=== PATIENT | female | born 1945 | race Caucasian/White ===

== ENCOUNTER → 2018-03-06 08:37 | Outpatient (REF) | payer MEDICARE, SELFPAY ==
[2018-03-06 13:24] LABS: HCT 40.8 % (36.0-46.0); HGB 13.8 g/dL (12.0-15.5); Mean Corp. HGB Concentration 33.8 g/dL (32.0-36.0); Mean Corpuscular Hemoglobin 30.6 pg (27.0-33.0); Mean Corpuscular Volume 90.5 fL (80-95); Mean Platelet Volume 13.2 fL (8.0-11.0); RBC 4.51 m/cumm (4.00-5.20); White Blood Cell Count 4.04 k/cumm (4.4-10.8)
[2018-03-06 13:49] LABS: BUN 17 mg/dL (7-18); CREATININE 0.79 mg/dL (0.55-1.02); Calcium 8.9 mg/dL (8.5-10.1); Chloride 104 mmol/L (98-107); Glucose 86 mg/dL (70-100); Potassium 3.8 mmol/L (3.5-5.1); Sodium 141 mmol/L (136-145)
[2018-03-06 14:11] LABS: Platelet Count 51 x1000/uL (130-400)
== END ==
LOC: NCHCN 08:37
PROVIDERS: PCP Family Medicine; Visit Provider Family Medicine
DX: I10 Essential (primary) hypertension (principal); D69.3 Immune thrombocytopenic purpura
CPT/HCPCS: 80048; 85027

== ENCOUNTER 2018-05-29 08:40 | Outpatient (REF) | payer MEDICARE, SELFPAY ==
[2018-05-29 13:01] LABS: Abs Immature Grans 0.01 k/cumm (0.0-0.09); Absolute Basophil Count 0.08 k/cumm (0.0-0.2); Absolute Eosinophil Count 0.06 k/cumm (0.0-0.7); Absolute Lymphocyte Count 1.08 k/cumm (1.2-3.4); Absolute Monocyte Count 0.42 k/cumm (0.11-0.7); Absolute Neutrophil Count 2.32 k/cumm (1.2-6.7); Eosinophils % 1.5; Immature Grans % 0.3; Lymphocytes % 27.2; Mean Corp. HGB Concentration 33.3 g/dL (32.0-36.0); Mean Corpuscular Hemoglobin 30.1 pg (27.0-33.0); Mean Corpuscular Volume 90.3 fL (80-95); Mean Platelet Volume 12.6 fL (8.0-11.0); Monocytes % 10.6; Neutrophils % 58.4; RBC 4.65 m/cumm (4.00-5.20); RBC Distribution Width 13.1 % (11.7-14.6); White Blood Cell Count 3.97 k/cumm (4.4-10.8)
[2018-05-29 13:25] LABS: Diff Comment PLT Morph Reviewed; Platelet Count 74 x1000/uL (130-400); RBC Morphology Normal
[2018-05-29 13:32] LABS: Vitamin B12 645 pg/mL (193-986)
== END 2018-05-29 09:00 ==
LOC: NCHCN 08:40
PROVIDERS: PCP Family Medicine; Visit Provider Family Medicine
DX: D69.3 Immune thrombocytopenic purpura (principal); D70.9 Neutropenia, unspecified
CPT/HCPCS: 82607; 85025

== ENCOUNTER 2018-06-12 09:16 | Outpatient (CLI) | payer MEDICARE, SELFPAY ==
--- NOTE | 2018-06-12 09:07 | DI.RAD_ITS ---
SYMPTOM/DIAGNOSIS: PAIN OF LEFT LOWER EXTREMITY LEFT HIP: Two views. The left hip is well maintained. No acute fracture or dislocation seen. There does appear to be a generalized increased sclerosis in the bones of the pelvis raising the question of osseous metastatic disease. Bone scan should be considered in this patient for further evaluation. The sacroiliac joints show mild degenerative changes. The symphysis pubis is intact. The soft tissues are unremarkable. IMPRESSION: 1. No acute fracture or dislocation. 2. Mild degenerative changes in the pelvis as described. 3. Generalized appearance of increased sclerosis of the bones raising the question of osseous metastatic disease. Bone scan should be considered in this patient for further evaluation, if clinically appropriate.
--- NOTE | 2018-06-12 09:07 | DI.RAD_ITS ---
SYMPTOM/DIAGNOSIS: KNEE PAIN LEFT KNEE: Three views. No priors for comparison. There is mild narrowing and periarticular spurring involving the medial femoral tibial joint. There is also mild spurring of the posterior patella. The joint spaces are otherwise well maintained. There is a small suprapatellar joint effusion. No acute fracture or dislocation is seen. Vascular calcifications are present in the soft tissues. IMPRESSION: Mild to moderate degenerative changes of the left knee.
--- NOTE | 2018-06-12 09:08 | DI.RAD_ITS ---
SYMPTOM/DIAGNOSIS: PAIN LEFT LOWER EXTREMITY LUMBAR SPINE: AP lateral and bilateral oblique views. There are five lumbar type vertebral bodies. There is normal alignment with Grade 1 pseudospondylolisthesis of L4 and L5 but no spondylolysis is present. No acute fractures or subluxations are present. There are vacuum discs at L1, L2 and L5-S1. End plate osteophytes are seen throughout the lumbar spine with disc space narrowing at L1, L2 and L5-S1. Degenerative changes of the facets are present throughout. There does appear to be a generalized increased sclerotic appearance to the bones. IMPRESSION: 1. Moderate degenerative changes of the lumbar spine. 2. No acute fractures or subluxations. 3. Overall generalized increased sclerosis of the bones. Metastatic disease should be considered. Bone scan should be considered for further evaluation.
== END 2018-06-12 09:36 ==
PROVIDERS: PCP Family Medicine; Referring Provider Family Medicine; Visit Provider Student in an Organized Health Care Education/Training Program
DX: M25.462 Effusion, left knee (principal); M25.562 Pain in left knee; M17.12 Unilateral primary osteoarthritis, left knee; M79.605 Pain in left leg; M25.552 Pain in left hip; M89.8X8 Other specified disorders of bone, other site; M51.37 Other intervertebral disc degeneration, lumbosacral region
CPT/HCPCS: 73562; 99203; 99214; 72110; 73502

== ENCOUNTER 2018-06-15 01:13 | Outpatient (CLI) | payer MEDICARE, SELFPAY ==
--- NOTE | 2018-06-15 10:33 | DI.MRI_ITS ---
SYMPTOM/DIAGNOSIS: PAIN OF LT LOWER EXTREMITY. ? SPINAL STENOSIS M79.605 LUMBOSACRAL SPINE MRI: 06/15/18 MRI examination of the lumbosacral spine was performed according to the usual protocol. Recent radiographs showed diffuse sclerotic appearance of the bones, no significant signal abnormality of the bones identified on today's examination to suggest the presence of bony metastatic disease. A few Schmorl's nodes are noted associated predominantly with L1-2 and L2-3 intervertebral discs. There is signal loss in the intervertebral discs throughout the lower thoracic and lumbar spine consistent with disc degeneration. There is loss of height at multiple levels. Conus medullaris appears intact. No significant disc herniation, central canal spinal stenosis or neuroforaminal stenosis identified in the lower thoracic and upper lumbar region. No specific findings at L3-4. At L4-5 there is severe central canal spinal stenosis secondary to prominent facet hypertrophic changes and a mild anteropseudo spondylolisthesis. No focal disc herniation. Neural foramina appear fairly well maintained. At L5-S1 there was a small central disc herniation without evidence of neural impingement. No central canal spinal stenosis or neuroforaminal stenosis identified at L5-S1. CONCLUSION: Severe central canal spinal stenosis at L4-5. The findings appear secondary to the facet hypertrophic changes and pseudospondylolisthesis. Small central disc herniation also noted at L5-S1 without evidence of neural impingement.
== END 2018-06-15 01:33 ==
PROVIDERS: PCP Family Medicine; Visit Provider Student in an Organized Health Care Education/Training Program
DX: M79.662 Pain in left lower leg (principal); M48.061 Spinal stenosis, lumbar region without neurogenic claudication; M51.36 Other intervertebral disc degeneration, lumbar region; M51.27 Other intervertebral disc displacement, lumbosacral region
CPT/HCPCS: 72148

== ENCOUNTER → 2018-08-02 11:14 | Outpatient (BNVA) | payer MEDICARE, SELFPAY | PROVIDERS: PCP Family Medicine; Referring Provider Family Medicine; Visit Provider Student in an Organized Health Care Education/Training Program | DX: M17.12 Unilateral primary osteoarthritis, left knee (principal); M48.061 Spinal stenosis, lumbar region without neurogenic claudication | CPT/HCPCS: 99213 ==

== ENCOUNTER 2018-09-04 08:24 | Outpatient (CLI) | payer MEDICARE, SELFPAY ==
[2018-09-04 08:57] LABS: Abs Immature Grans 0.01 k/cumm (0.0-0.09); Absolute Eosinophil Count 0.11 k/cumm (0.0-0.7); Absolute Monocyte Count 0.44 k/cumm (0.11-0.7); Basophils % 2.3; Eosinophils % 2.6; HCT 43.6 % (36.0-46.0); HGB 14.5 g/dL (12.0-15.5); Immature Grans % 0.2; Lymphocytes % 30.5; Mean Corp. HGB Concentration 33.3 g/dL (32.0-36.0); Mean Corpuscular Hemoglobin 29.8 pg (27.0-33.0); Mean Corpuscular Volume 89.7 fL (80-95); Mean Platelet Volume 11.3 fL (8.0-11.0); Monocytes % 10.3; Neutrophils % 54.1; RBC 4.86 m/cumm (4.00-5.20); RBC Distribution Width 12.5 % (11.7-14.6); White Blood Cell Count 4.26 k/cumm (4.4-10.8)
[2018-09-04 09:10] LABS: ALT 21 U/L (12-78); AST 15 U/L (15-37); Albumin 3.7 g/dL (3.4-5.0); Alkaline Phosphatase 68 U/L (46-116); BUN 19 mg/dL (7-18); Bilirubin, Total 0.4 mg/dL (0.2-1.0); CO2 31.8 mmol/L (21.0-32.0); CREATININE 0.87 mg/dL (0.55-1.02); Calcium 9.8 mg/dL (8.5-10.1); Glucose 99 mg/dL (70-100); Total Protein 7.3 g/dL (6.4-8.2)
[2018-09-04 09:12] LABS: Platelet Count 103 x1000/uL (130-400)
[2018-09-04 09:13] LABS: Diff Comment PLT Morph Reviewed; RBC Morphology Normal
[2018-09-04 09:16] LABS: Anion Gap 6.2 mmol/L (3-11); Chloride 105 mmol/L (98-107); Potassium 4.3 mmol/L (3.5-5.1); Sodium 143 mmol/L (136-145)
== END 2018-09-04 08:44 ==
PROVIDERS: PCP Family Medicine; Visit Provider Internal Medicine Hematology & Oncology
DX: D69.0 Allergic purpura (principal)
CPT/HCPCS: 36415; 80053; 85025

== ENCOUNTER 2018-12-05 15:31 | Outpatient (CLI) | payer MEDICARE, SELFPAY ==
[2018-12-05 16:05] LABS: Abs Immature Grans 0.01 k/cumm (0.0-0.09); Absolute Basophil Count 0.06 k/cumm (0.0-0.2); Absolute Eosinophil Count 0.15 k/cumm (0.0-0.7); Absolute Lymphocyte Count 1.63 k/cumm (1.2-3.4); Absolute Monocyte Count 0.61 k/cumm (0.11-0.7); Absolute Neutrophil Count 4.88 k/cumm (1.2-6.7); Basophils % 0.8; HCT 42.5 % (36.0-46.0); HGB 14.4 g/dL (12.0-15.5); Immature Grans % 0.1; Lymphocytes % 22.2; Mean Corp. HGB Concentration 33.9 g/dL (32.0-36.0); Mean Corpuscular Hemoglobin 30.9 pg (27.0-33.0); Mean Corpuscular Volume 91.2 fL (80-95); Mean Platelet Volume 11.9 fL (8.0-11.0); Monocytes % 8.3; Neutrophils % 66.6; RBC 4.66 m/cumm (4.00-5.20); RBC Distribution Width 12.7 % (11.7-14.6); White Blood Cell Count 7.34 k/cumm (4.4-10.8)
[2018-12-05 16:24] LABS: Platelet Count 98 x1000/uL (130-400)
== END 2018-12-05 15:51 ==
PROVIDERS: PCP Family Medicine; Visit Provider Internal Medicine Hematology & Oncology
DX: D69.6 Thrombocytopenia, unspecified (principal)
CPT/HCPCS: 36415; 85025

== ENCOUNTER 2019-03-08 11:30 | Outpatient (CLI) | payer MEDICARE, SELFPAY ==
[2019-03-08 12:04] LABS: Abs Immature Grans 0.01 k/cumm (0.0-0.09); Absolute Basophil Count 0.07 k/cumm (0.0-0.2); Absolute Eosinophil Count 0.12 k/cumm (0.0-0.7); Absolute Monocyte Count 0.47 k/cumm (0.11-0.7); Basophils % 1.3; Eosinophils % 2.3; HCT 41.4 % (36.0-46.0); HGB 14.1 g/dL (12.0-15.5); Immature Grans % 0.2; Lymphocytes % 28.5; Mean Corp. HGB Concentration 34.1 g/dL (32.0-36.0); Mean Corpuscular Hemoglobin 30.8 pg (27.0-33.0); Mean Corpuscular Volume 90.4 fL (80-95); Monocytes % 8.9; Neutrophils % 58.8; RBC 4.58 m/cumm (4.00-5.20); RBC Distribution Width 12.7 % (11.7-14.6); White Blood Cell Count 5.27 k/cumm (4.4-10.8)
[2019-03-08 12:56] LABS: Platelet Count 97 x1000/uL (130-400)
[2019-03-08 12:57] LABS: Diff Comment Diff Reviewed; RBC Morphology Normal
== END 2019-03-08 11:50 ==
PROVIDERS: PCP Family Medicine; Visit Provider Internal Medicine Hematology & Oncology
DX: D69.6 Thrombocytopenia, unspecified (principal)
CPT/HCPCS: 36415; 80053; 85025

== ENCOUNTER 2019-05-08 14:50 | Outpatient (CLI) | payer MEDICARE, SELFPAY ==
[2019-05-08 15:36] LABS: Abs Immature Grans 0.02 k/cumm (0.0-0.09); Absolute Basophil Count 0.08 k/cumm (0.0-0.2); Absolute Eosinophil Count 0.14 k/cumm (0.0-0.7); Absolute Lymphocyte Count 2.02 k/cumm (1.2-3.4); Absolute Monocyte Count 0.53 k/cumm (0.11-0.7); Absolute Neutrophil Count 5.48 k/cumm (1.2-6.7); Eosinophils % 1.7; HGB 14.5 g/dL (12.0-15.5); Immature Grans % 0.2; Lymphocytes % 24.4; Mean Corp. HGB Concentration 33.7 g/dL (32.0-36.0); Mean Corpuscular Hemoglobin 30.6 pg (27.0-33.0); Mean Corpuscular Volume 90.7 fL (80-95); Mean Platelet Volume 11.6 fL (8.0-11.0); Monocytes % 6.4; Neutrophils % 66.3; Platelet Count 127 x1000/uL (130-400); RBC 4.74 m/cumm (4.00-5.20); RBC Distribution Width 12.8 % (11.7-14.6); White Blood Cell Count 8.27 k/cumm (4.4-10.8)
== END 2019-05-08 15:10 ==
PROVIDERS: PCP Family Medicine; Visit Provider Internal Medicine Hematology & Oncology
DX: D69.6 Thrombocytopenia, unspecified (principal)
CPT/HCPCS: 36415; 85025

== ENCOUNTER 2019-05-28 09:08 | Outpatient (CLI) | payer MEDICARE, SELFPAY ==
[2019-05-28 09:56] LABS: Abs Immature Grans 0.01 k/cumm (0.0-0.09); Absolute Basophil Count 0.07 k/cumm (0.0-0.2); Absolute Eosinophil Count 0.14 k/cumm (0.0-0.7); Absolute Lymphocyte Count 1.38 k/cumm (1.2-3.4); Absolute Monocyte Count 0.46 k/cumm (0.11-0.7); Absolute Neutrophil Count 2.45 k/cumm (1.2-6.7); Basophils % 1.6; Eosinophils % 3.1; HCT 43.5 % (36.0-46.0); HGB 14.6 g/dL (12.0-15.5); Immature Grans % 0.2; Lymphocytes % 30.6; Mean Corp. HGB Concentration 33.6 g/dL (32.0-36.0); Mean Corpuscular Hemoglobin 30.7 pg (27.0-33.0); Mean Corpuscular Volume 91.6 fL (80-95); Mean Platelet Volume 11.2 fL (8.0-11.0); Monocytes % 10.2; Neutrophils % 54.3; Platelet Count 124 x1000/uL (130-400); RBC 4.75 m/cumm (4.00-5.20); RBC Distribution Width 12.8 % (11.7-14.6); White Blood Cell Count 4.51 k/cumm (4.4-10.8)
[2019-05-28 10:19] LABS: ALT 28 U/L (14-59); AST 15 U/L (15-37); Albumin 3.9 g/dL (3.4-5.0); Alkaline Phosphatase 66 U/L (46-116); Anion Gap 5.2 mmol/L (3-11); BUN 20 mg/dL (7-18); Bilirubin, Total 0.5 mg/dL (0.2-1.0); CO2 29.8 mmol/L (21.0-32.0); CREATININE 0.88 mg/dL (0.55-1.02); Calcium 9.6 mg/dL (8.5-10.1); Chloride 107 mmol/L (98-107); Glucose 95 mg/dL (70-100); Potassium 4.5 mmol/L (3.5-5.1); Sodium 142 mmol/L (136-145); Total Protein 7.2 g/dL (6.4-8.2)
== END 2019-05-28 09:28 ==
PROVIDERS: PCP Family Medicine; Visit Provider Internal Medicine Hematology & Oncology
DX: D69.6 Thrombocytopenia, unspecified (principal)
CPT/HCPCS: 36415; 80053; 85025

== ENCOUNTER 2019-12-13 01:48 | Outpatient (CLI) | payer MEDICARE, SELFPAY ==
[2019-12-13 09:09] LABS: Abs Immature Grans 0.01 k/cumm (0.0-0.09); Absolute Basophil Count 0.07 k/cumm (0.0-0.2); Absolute Eosinophil Count 0.23 k/cumm (0.0-0.7); Absolute Lymphocyte Count 1.33 k/cumm (1.2-3.4); Absolute Monocyte Count 0.52 k/cumm (0.11-0.7); Absolute Neutrophil Count 2.49 k/cumm (1.2-6.7); Basophils % 1.5; Eosinophils % 4.9; HCT 43.5 % (36.0-46.0); HGB 14.5 g/dL (12.0-15.5); Immature Grans % 0.2 %; Lymphocytes % 28.6; Mean Corp. HGB Concentration 33.3 g/dL (32.0-36.0); Mean Corpuscular Hemoglobin 30.3 pg (27.0-33.0); Mean Platelet Volume 11.3 fL (8.0-11.0); Monocytes % 11.2; Neutrophils % 53.6; Platelet Count 122 x1000/uL (130-400); RBC 4.78 m/cumm (4.00-5.20); RBC Distribution Width 12.7 % (11.7-14.6); White Blood Cell Count 4.65 k/cumm (4.4-10.8)
[2019-12-13 09:18] LABS: ALT 27 U/L (14-59); AST 18 U/L (15-37); Albumin 4.1 g/dL (3.4-5.0); Alkaline Phosphatase 63 U/L (46-116); Anion Gap 4.2 mmol/L (3-11); BUN 20 mg/dL (7-18); Bilirubin, Total 0.7 mg/dL (0.2-1.0); CO2 30.8 mmol/L (21.0-32.0); CREATININE 0.98 mg/dL (0.55-1.02); Calcium 10.2 mg/dL (8.5-10.1); Chloride 105 mmol/L (98-107); Estimated GFR 55.18 (mL/min/1.73m2); Glucose 96 mg/dL (74-106); Potassium 4.3 mmol/L (3.5-5.1); Sodium 140 mmol/L (136-145); Total Protein 7.5 g/dL (6.4-8.2)
== END 2019-12-13 02:08 ==
PROVIDERS: PCP Family Medicine; Visit Provider Internal Medicine Hematology & Oncology
DX: D69.6 Thrombocytopenia, unspecified (principal)
CPT/HCPCS: 36415; 80053; 85025

== ENCOUNTER 2020-05-26 11:20 | Outpatient (REF) | payer SELFPAY ==
[2020-05-27 21:14] LABS: COVID-19 RT-PCR Result NEGATIVE (Negative)
== END 2020-05-26 11:40 ==
LOC: NCHCN 11:20
PROVIDERS: PCP Family Medicine; Visit Provider Nurse Practitioner Family
DX: Z20.828 Contact with and (suspected) exposure to other viral communicable diseases (principal)
CPT/HCPCS: U0003

== ENCOUNTER 2020-07-11 04:59 | Outpatient (CLI) | payer MEDICARE, SELFPAY ==
[2020-07-11 15:18] LABS: Abs Immature Grans 0.02 10^3/uL (0.0-0.06); Absolute Eosinophil Count 0.13 10^3/uL (0.0-0.7); Absolute Lymphocyte Count 1.81 10^3/uL (1.2-3.4); Absolute Monocyte Count 0.71 10^3/uL (0.1-0.8); Absolute Neutrophil Count 4.68 10^3/uL (1.2-6.7); Basophils % 1.3; Eosinophils % 1.7; HCT 42.7 % (36.0-46.0); HGB 13.9 g/dL (11.2-15.7); Immature Grans % 0.3; Lymphocytes % 24.3; MCH 30.1 pg (27.0-33.0); MCHC 32.6 % (32.0-36.0); MCV 92.4 fL (80-95); Monocytes % 9.5; Neutrophils % 62.9; Nucleated RBC 0 %; RBC 4.62 10^6/uL (3.93-5.22); RDW-SD 40.7 fL; WBC 7.45 10^3/uL (4.4-10.8)
[2020-07-14 11:35] LABS: Platelet Count 16 10^3/uL (130-400)
== END 2020-07-11 05:19 ==
PROVIDERS: PCP Family Medicine; Visit Provider Internal Medicine Hematology & Oncology
DX: D69.6 Thrombocytopenia, unspecified (principal)
CPT/HCPCS: 36415; 85025

== ENCOUNTER 2020-07-16 16:53 | Outpatient (CLI) | payer MEDICARE, SELFPAY ==
[2020-07-16 10:14] LABS: Abs Immature Grans 0.01 10^3/uL (0.0-0.06); Absolute Basophil Count 0.12 10^3/uL (0.0-0.2); Absolute Eosinophil Count 0.18 10^3/uL (0.0-0.7); Absolute Lymphocyte Count 1.33 10^3/uL (1.2-3.4); Absolute Monocyte Count 0.51 10^3/uL (0.1-0.8); Absolute Neutrophil Count 3.57 10^3/uL (1.2-6.7); Basophils % 2.1; Eosinophils % 3.1; HCT 44.8 % (36.0-46.0); HGB 14.6 g/dL (11.2-15.7); Immature Grans % 0.2; Lymphocytes % 23.3; MCH 30.3 pg (27.0-33.0); MCHC 32.6 % (32.0-36.0); MCV 92.9 fL (80-95); Monocytes % 8.9; Neutrophils % 62.4; Nucleated RBC 0 %; RBC 4.82 10^6/uL (3.93-5.22); RDW-SD 41.5 fL; WBC 5.72 10^3/uL (4.4-10.8)
[2020-07-16 10:28] LABS: ALT 25 U/L (14-59); AST 16 U/L (15-37); Alkaline Phosphatase 72 U/L (46-116); Anion Gap 6.6 mmol/L (3-11); BUN 19 mg/dL (7-18); Bilirubin, Total 0.6 mg/dL (0.2-1.0); CO2 29.4 mmol/L (21.0-32.0); CREATININE 0.97 mg/dL (0.55-1.02); Chloride 105 mmol/L (98-107); Estimated GFR 55.83 (mL/min/1.73m2); Glucose 69 mg/dL (74-106); Potassium 3.9 mmol/L (3.5-5.1); Sodium 141 mmol/L (136-145); Total Protein 7.6 g/dL (6.4-8.2)
[2020-07-16 10:43] LABS: Diff Comment Diff Reviewed; RBC Morphology Normal
[2020-07-16 10:47] LABS: Platelet Count 15 10^3/uL (130-400)
== END 2020-07-16 17:13 ==
PROVIDERS: PCP Family Medicine; Visit Provider Internal Medicine Hematology & Oncology
DX: D69.6 Thrombocytopenia, unspecified (principal)
CPT/HCPCS: 36415; 80053; 85025

== ENCOUNTER 2020-07-17 11:33 | Outpatient (CLI) | payer MEDICARE, SELFPAY ==
[2020-07-17 15:14] LABS: Abs Immature Grans 0.06 10^3/uL (0.0-0.06); Absolute Basophil Count 0.02 10^3/uL (0.0-0.2); Absolute Lymphocyte Count 0.89 10^3/uL (1.2-3.4); Basophils % 0.1; HGB 14.6 g/dL (11.2-15.7); Immature Grans % 0.3; Lymphocytes % 4.8; MCH 30.7 pg (27.0-33.0); MCV 90.3 fL (80-95); Monocytes % 1.7; Neutrophils % 93.1; Nucleated RBC 0 %; RBC 4.76 10^6/uL (3.93-5.22); RDW-SD 39.5 fL; WBC 18.58 10^3/uL (4.4-10.8)
[2020-07-17 15:17] LABS: Absolute Monocyte Count 0.32 10^3/uL (0.1-0.8)
[2020-07-17 15:40] LABS: Diff Comment Diff Reviewed; Platelet Count 50 10^3/uL (130-400); RBC Morphology Normal
[2020-07-17 16:27] LABS: ALT 27 U/L (14-59); AST 15 U/L (15-37); Albumin 4.2 g/dL (3.4-5.0); Alkaline Phosphatase 75 U/L (46-116); Anion Gap 12.4 mmol/L (3-11); BUN 25 mg/dL (7-18); Bilirubin, Total 0.4 mg/dL (0.2-1.0); CO2 24.6 mmol/L (21.0-32.0); CREATININE 0.93 mg/dL (0.55-1.02); Chloride 104 mmol/L (98-107); Estimated GFR 58.61 (mL/min/1.73m2); Glucose 145 mg/dL (74-106); Sodium 141 mmol/L (136-145); Total Protein 7.4 g/dL (6.4-8.2)
== END 2020-07-17 11:53 ==
PROVIDERS: PCP Family Medicine; Visit Provider Internal Medicine Hematology & Oncology
DX: D69.6 Thrombocytopenia, unspecified (principal)
CPT/HCPCS: 36415; 80053; 85025

== ENCOUNTER 2020-07-21 02:13 | Outpatient (CLI) | payer MEDICARE, SELFPAY ==
[2020-07-21 12:12] LABS: Abs Immature Grans 0.12 10^3/uL (0.0-0.06); Absolute Basophil Count 0.01 10^3/uL (0.0-0.2); Absolute Lymphocyte Count 2.15 10^3/uL (1.2-3.4); Absolute Monocyte Count 1.31 10^3/uL (0.1-0.8); Absolute Neutrophil Count 5.82 10^3/uL (1.2-6.7); Basophils % 0.1; HCT 44.3 % (36.0-46.0); HGB 14.8 g/dL (11.2-15.7); Immature Grans % 1.3; Lymphocytes % 22.8; MCH 30.2 pg (27.0-33.0); MCHC 33.4 % (32.0-36.0); MCV 90.4 fL (80-95); Monocytes % 13.9; Neutrophils % 61.9; Nucleated RBC 0 %; Platelet Count 163 10^3/uL (130-400); RDW 12.1 % (11.7-14.6); WBC 9.41 10^3/uL (4.4-10.8)
== END 2020-07-21 02:33 ==
PROVIDERS: PCP Family Medicine; Visit Provider Internal Medicine Hematology & Oncology
DX: D69.6 Thrombocytopenia, unspecified (principal)
CPT/HCPCS: 36415; 85025

== ENCOUNTER 2020-07-28 03:08 | Outpatient (CLI) | payer MEDICARE, SELFPAY ==
[2020-07-28 09:09] LABS: Abs Immature Grans 0.04 10^3/uL (0.0-0.06); Absolute Basophil Count 0.03 10^3/uL (0.0-0.2); Absolute Eosinophil Count 0.15 10^3/uL (0.0-0.7); Absolute Lymphocyte Count 1.52 10^3/uL (1.2-3.4); Absolute Monocyte Count 0.59 10^3/uL (0.1-0.8); Absolute Neutrophil Count 4.24 10^3/uL (1.2-6.7); Basophils % 0.5; Eosinophils % 2.3; Immature Grans % 0.6; Lymphocytes % 23.1; MCH 30.4 pg (27.0-33.0); MCHC 32.6 % (32.0-36.0); MCV 93.5 fL (80-95); MPV 11.3 fL (8.0-11.0); Neutrophils % 64.5; Nucleated RBC 0 %; Platelet Count 141 10^3/uL (130-400); RDW 12.2 % (11.7-14.6); RDW-SD 41.6 fL; WBC 6.57 10^3/uL (4.4-10.8)
[2020-07-28 09:29] LABS: ALT 33 U/L (14-59); AST 15 U/L (15-37); Albumin 3.5 g/dL (3.4-5.0); Alkaline Phosphatase 67 U/L (46-116); Anion Gap 6.7 mmol/L (3-11); BUN 17 mg/dL (7-18); Bilirubin, Total 0.5 mg/dL (0.2-1.0); CO2 28.3 mmol/L (21.0-32.0); CREATININE 0.96 mg/dL (0.55-1.02); Calcium 9.4 mg/dL (8.5-10.1); Chloride 105 mmol/L (98-107); Estimated GFR 56.36 (mL/min/1.73m2); Glucose 103 mg/dL (74-106); Potassium 3.8 mmol/L (3.5-5.1); Sodium 140 mmol/L (136-145)
[2020-07-29 09:43] LABS: HBs Antibody, Quant <3.1 mIU/mL (See Note); Hepatitis B Surface Ab Negative (See Note)
[2020-07-29 09:50] LABS: Hepatitis B Surface Ag Negative (Negative)
[2020-07-29 10:33] LABS: Hepatitis C Ab w Rflx HCV PCR Negative (Negative)
== END 2020-07-28 03:28 ==
PROVIDERS: PCP Family Medicine; Visit Provider Internal Medicine Hematology & Oncology
DX: D69.6 Thrombocytopenia, unspecified (principal); Z11.59 Encounter for screening for other viral diseases
CPT/HCPCS: 36415; 80053; 86706; 86803; 87340; 85025; 86704

== ENCOUNTER 2020-08-04 03:51 | Outpatient (CLI) | payer MEDICARE, SELFPAY ==
[2020-08-04 09:12] LABS: Abs Immature Grans 0.02 10^3/uL (0.0-0.06); Absolute Basophil Count 0.09 10^3/uL (0.0-0.2); Absolute Eosinophil Count 0.16 10^3/uL (0.0-0.7); Absolute Lymphocyte Count 1.39 10^3/uL (1.2-3.4); Absolute Monocyte Count 0.49 10^3/uL (0.1-0.8); Absolute Neutrophil Count 3.39 10^3/uL (1.2-6.7); Basophils % 1.6; Eosinophils % 2.9; HCT 43.8 % (36.0-46.0); HGB 14.2 g/dL (11.2-15.7); Immature Grans % 0.4; Lymphocytes % 25.1; MCH 30.1 pg (27.0-33.0); MCHC 32.4 % (32.0-36.0); MPV 12.8 fL (8.0-11.0); Monocytes % 8.8; Neutrophils % 61.2; Nucleated RBC 0 %; RBC 4.71 10^6/uL (3.93-5.22); RDW 12.1 % (11.7-14.6); RDW-SD 41.3 fL; WBC 5.54 10^3/uL (4.4-10.8)
[2020-08-04 09:39] LABS: Platelet Count 41 10^3/uL (130-400)
[2020-08-04 09:40] LABS: Diff Comment Diff Reviewed; RBC Morphology Normal
== END 2020-08-04 04:11 ==
PROVIDERS: PCP Family Medicine; Visit Provider Internal Medicine Hematology & Oncology
DX: D69.6 Thrombocytopenia, unspecified (principal)
CPT/HCPCS: 36415; 85025

== ENCOUNTER 2020-08-11 02:37 | Outpatient (CLI) | payer MEDICARE, SELFPAY ==
[2020-08-11 13:36] LABS: Abs Immature Grans 0.18 10^3/uL (0.0-0.06); Absolute Basophil Count 0.05 10^3/uL (0.0-0.2); Absolute Eosinophil Count 0.15 10^3/uL (0.0-0.7); Absolute Lymphocyte Count 2.51 10^3/uL (1.2-3.4); Absolute Monocyte Count 0.97 10^3/uL (0.1-0.8); Absolute Neutrophil Count 5.87 10^3/uL (1.2-6.7); Basophils % 0.5; Eosinophils % 1.5; HCT 46.7 % (36.0-46.0); HGB 15.7 g/dL (11.2-15.7); Immature Grans % 1.8; Lymphocytes % 25.8; MCH 30.7 pg (27.0-33.0); MCHC 33.6 % (32.0-36.0); MCV 91.2 fL (80-95); MPV 11.1 fL (8.0-11.0); Neutrophils % 60.4; Nucleated RBC 0 %; Platelet Count 167 10^3/uL (130-400); RBC 5.12 10^6/uL (3.93-5.22); RDW 12.3 % (11.7-14.6); WBC 9.73 10^3/uL (4.4-10.8)
== END 2020-08-11 02:57 ==
PROVIDERS: PCP Family Medicine; Visit Provider Internal Medicine Hematology & Oncology
DX: D69.6 Thrombocytopenia, unspecified (principal)
CPT/HCPCS: 36415; 85025

== ENCOUNTER 2020-08-18 02:37 | Outpatient (CLI) | payer MEDICARE, SELFPAY ==
[2020-08-18 09:13] LABS: Abs Immature Grans 0.05 10^3/uL (0.0-0.06); Absolute Basophil Count 0.06 10^3/uL (0.0-0.2); Absolute Eosinophil Count 0.13 10^3/uL (0.0-0.7); Absolute Lymphocyte Count 1.25 10^3/uL (1.2-3.4); Absolute Neutrophil Count 5.16 10^3/uL (1.2-6.7); Basophils % 0.8; Eosinophils % 1.8; HCT 42.3 % (36.0-46.0); HGB 13.8 g/dL (11.2-15.7); Immature Grans % 0.7; Lymphocytes % 17.2; MCH 30.6 pg (27.0-33.0); MCHC 32.6 % (32.0-36.0); MCV 93.8 fL (80-95); MPV 11.2 fL (8.0-11.0); Monocytes % 8.3; Neutrophils % 71.2; Nucleated RBC 0 %; Platelet Count 123 10^3/uL (130-400); RBC 4.51 10^6/uL (3.93-5.22); RDW 12.6 % (11.7-14.6); RDW-SD 43.1 fL; WBC 7.25 10^3/uL (4.4-10.8)
== END 2020-08-18 02:57 ==
PROVIDERS: PCP Family Medicine; Visit Provider Internal Medicine Hematology & Oncology
DX: D69.6 Thrombocytopenia, unspecified (principal)
CPT/HCPCS: 36415; 80053; 85025

== ENCOUNTER 2020-08-25 05:16 | Outpatient (CLI) | payer MEDICARE, SELFPAY ==
[2020-08-25 10:19] LABS: Abs Immature Grans 0.01 10^3/uL (0.0-0.06); Absolute Lymphocyte Count 1.28 10^3/uL (1.2-3.4); Absolute Monocyte Count 0.51 10^3/uL (0.1-0.8); Absolute Neutrophil Count 3.09 10^3/uL (1.2-6.7); Basophils % 1.9; Eosinophils % 3.9; HCT 41.2 % (36.0-46.0); HGB 13.6 g/dL (11.2-15.7); Immature Grans % 0.2; Lymphocytes % 24.7; MCH 30.5 pg (27.0-33.0); MCV 92.4 fL (80-95); MPV 11.5 fL (8.0-11.0); Monocytes % 9.8; Neutrophils % 59.5; Nucleated RBC 0 %; RBC 4.46 10^6/uL (3.93-5.22); RDW 12.7 % (11.7-14.6); RDW-SD 42.4 fL; WBC 5.19 10^3/uL (4.4-10.8)
[2020-08-25 10:26] LABS: Diff Comment PLT Morph Reviewed; Platelet Count 86 10^3/uL (130-400)
[2020-08-25 10:27] LABS: RBC Morphology Normal
== END 2020-08-25 05:36 ==
PROVIDERS: PCP Family Medicine; Visit Provider Internal Medicine Hematology & Oncology
DX: D69.6 Thrombocytopenia, unspecified (principal)
CPT/HCPCS: 36415; 85025

== ENCOUNTER 2020-09-01 04:30 | Outpatient (CLI) | payer MEDICARE, SELFPAY ==
[2020-09-01 10:08] LABS: Absolute Basophil Count 0.02 10^3/uL (0.0-0.2); Absolute Lymphocyte Count 0.72 10^3/uL (1.2-3.4); Absolute Monocyte Count 0.45 10^3/uL (0.1-0.8); Absolute Neutrophil Count 7.73 10^3/uL (1.2-6.7); Basophils % 0.2; HCT 42.9 % (36.0-46.0); HGB 14.2 g/dL (11.2-15.7); Immature Grans % 2.2; Lymphocytes % 7.9; MCH 30.6 pg (27.0-33.0); MCHC 33.1 % (32.0-36.0); MCV 92.5 fL (80-95); Monocytes % 4.9; Neutrophils % 84.8; Nucleated RBC 0 %; Platelet Count 198 10^3/uL (130-400); RBC 4.64 10^6/uL (3.93-5.22); RDW-SD 43.5 fL; WBC 9.12 10^3/uL (4.4-10.8)
[2020-09-01 10:24] LABS: ALT 134 U/L (14-59); AST 32 U/L (15-37); Albumin 3.8 g/dL (3.4-5.0); Alkaline Phosphatase 74 U/L (46-116); Anion Gap 8.7 mmol/L (3-11); BUN 27 mg/dL (7-18); Bilirubin, Total 0.5 mg/dL (0.2-1.0); CO2 29.3 mmol/L (21.0-32.0); CREATININE 0.9 mg/dL (0.55-1.02); Calcium 9.9 mg/dL (8.5-10.1); Chloride 105 mmol/L (98-107); Glucose 164 mg/dL (74-106); Potassium 3.9 mmol/L (3.5-5.1); Sodium 143 mmol/L (136-145); Total Protein 7.4 g/dL (6.4-8.2)
== END 2020-09-01 04:50 ==
PROVIDERS: PCP Family Medicine; Visit Provider Internal Medicine Hematology & Oncology
DX: D69.6 Thrombocytopenia, unspecified (principal)
CPT/HCPCS: 36415; 80053; 85025

== ENCOUNTER 2020-09-08 03:23 | Outpatient (CLI) | payer MEDICARE, SELFPAY ==
[2020-09-08 10:22] LABS: Abs Immature Grans 0.09 10^3/uL (0.0-0.06); Absolute Basophil Count 0.03 10^3/uL (0.0-0.2); Absolute Eosinophil Count 0.17 10^3/uL (0.0-0.7); Absolute Lymphocyte Count 1.45 10^3/uL (1.2-3.4); Absolute Monocyte Count 0.76 10^3/uL (0.1-0.8); Absolute Neutrophil Count 4.12 10^3/uL (1.2-6.7); Basophils % 0.5; Eosinophils % 2.6; HCT 42.3 % (36.0-46.0); HGB 13.9 g/dL (11.2-15.7); Immature Grans % 1.4; Lymphocytes % 21.9; MCH 30.5 pg (27.0-33.0); MCHC 32.9 % (32.0-36.0); MPV 10.8 fL (8.0-11.0); Monocytes % 11.5; Neutrophils % 62.1; Nucleated RBC 0 %; Platelet Count 159 10^3/uL (130-400); RBC 4.55 10^6/uL (3.93-5.22); RDW 13.1 % (11.7-14.6); RDW-SD 44.5 fL; WBC 6.62 10^3/uL (4.4-10.8)
[2020-09-08 10:40] LABS: ALT 42 U/L (14-59); AST 16 U/L (15-37); Albumin 3.5 g/dL (3.4-5.0); Alkaline Phosphatase 67 U/L (46-116); BUN 16 mg/dL (7-18); Bilirubin, Total 0.5 mg/dL (0.2-1.0); CREATININE 0.8 mg/dL (0.55-1.02); Calcium 9.5 mg/dL (8.5-10.1); Chloride 106 mmol/L (98-107); Glucose 94 mg/dL (74-106); Potassium 4.1 mmol/L (3.5-5.1); Sodium 142 mmol/L (136-145); Total Protein 7.1 g/dL (6.4-8.2)
== END 2020-09-08 03:24 | disposition home or self-care (01) ==
LOC: LBO 03:23
PROVIDERS: PCP Family Medicine; Visit Provider Internal Medicine Hematology & Oncology
DX: D69.6 Thrombocytopenia, unspecified (principal)
CPT/HCPCS: 36415; 80053; 85025

== ENCOUNTER 2020-09-15 01:51 | Outpatient (CLI) | payer MEDICARE, SELFPAY ==
[2020-09-15 10:39] LABS: Abs Immature Grans 0.02 10^3/uL (0.0-0.06); Absolute Eosinophil Count 0.17 10^3/uL (0.0-0.7); Absolute Lymphocyte Count 1.35 10^3/uL (1.2-3.4); Absolute Neutrophil Count 3.53 10^3/uL (1.2-6.7); Basophils % 1.7; Eosinophils % 2.9; HCT 41.2 % (36.0-46.0); HGB 13.5 g/dL (11.2-15.7); Immature Grans % 0.3; Lymphocytes % 23.4; MCH 30.5 pg (27.0-33.0); MCHC 32.8 % (32.0-36.0); MCV 93.2 fL (80-95); MPV 11.7 fL (8.0-11.0); Monocytes % 10.4; Neutrophils % 61.3; Nucleated RBC 0 %; RBC 4.42 10^6/uL (3.93-5.22); RDW 13.1 % (11.7-14.6); RDW-SD 44.8 fL; WBC 5.77 10^3/uL (4.4-10.8)
[2020-09-15 11:02] LABS: Platelet Count 91 10^3/uL (130-400)
== END 2020-09-15 01:52 | disposition home or self-care (01) ==
LOC: LBO 01:51
PROVIDERS: PCP Family Medicine; Visit Provider Internal Medicine Hematology & Oncology
DX: D69.6 Thrombocytopenia, unspecified (principal)
CPT/HCPCS: 36415; 85025

== ENCOUNTER 2020-09-17 10:09 | Outpatient (CLI) | payer MEDICARE, SELFPAY ==
--- OUTSIDE RECORDS SUMMARY | 2020-09-17 10:12 | XMS_ITS ---
:1945 External Reference #:[id number] Author Care Team Providers Name Role Phone Knights Primary Care Provider Unavailable Allergies Code Code System Name Reaction Severity Status Onset Grass Pollen Chest Pain Mild Active ? Tree and Cough Mild Active ? Shrub Pollen ? Other Mild Active ? Medications None recorded. Problems Name Status Onset Date Source ? Vitamin D Deficiency Active 12/21/2015 ? Hyperlipidemia Active 12/21/2015 ? Essential Hypertension Active 12/21/2015 ? Hemorrhoids Active 12/21/2015 ? Procedures Date Name Performed by ? 01/29/1979 Tubal Ligation Information not avai lable Results Lab Results None recorded. Past Encounters None recorded. Social History Tobacco Smoking Status Never Smoker Vaccine List Vaccine Type DTP 1945 Hep A, adult 07/01/2012 influenza, seasonal, injectable 05/01/2015 05/01/2016 Pneumococcal Conjugate, unspecified form ulation 05/01/2015 polio, unspecified formulation 01/29/1957 tetanus toxoid, unspecified formulation 07/01/2013 Plan of Care Reminders Provider Appointments None ? ? recorded. Lab None ? ? recorded. Referral None ? ? recorded. Procedures None ? ? recorded. Surgeries None ? ? recorded. Imaging None ? ? recorded. Vitals 05/31/2017 09:30AM ESTABLISHED PATIENT 30 Height Weight BMI Blood Pressure 5 ft 3 in 156 lbs 27.6 kg/m2 130/80 mm[Hg] 12/01/2016 10:45AM ESTABLISHED PATIENT 45 Height Weight BMI Blood Pressure 5 ft 3 in 157 lbs 16 oz 28 kg/m2 140/78 mm[Hg] 04/01/2016 09:00AM ESTABLISHED PATIENT 45 Height Weight BMI Blood Pressure 5 ft 3 in 155 lbs 27.5 kg/m2 (1) 152/86 mm[H g] (2) 130/76 mm[Hg ] 12/19/2015 09:00AM ESTABLISHED PATIENT 45 Weight Blood Pressure 156 lbs 16 oz 140/72 mm[Hg] 11/04/2015 11:00AM NEW PATIENT 90 Weight Blood Pressure 157 lbs 16 oz 132/86 mm[Hg]
[2020-09-17 10:52] LABS: Abs Immature Grans 0.01 10^3/uL (0.0-0.06); Absolute Basophil Count 0.09 10^3/uL (0.0-0.2); Absolute Eosinophil Count 0.12 10^3/uL (0.0-0.7); Absolute Lymphocyte Count 1.17 10^3/uL (1.2-3.4); Absolute Monocyte Count 0.66 10^3/uL (0.1-0.8); Absolute Neutrophil Count 3.03 10^3/uL (1.2-6.7); Basophils % 1.8; Eosinophils % 2.4; HCT 39.9 % (36.0-46.0); HGB 13.1 g/dL (11.2-15.7); Immature Grans % 0.2; MCH 30.7 pg (27.0-33.0); MCHC 32.8 % (32.0-36.0); MCV 93.4 fL (80-95); MPV 11.8 fL (8.0-11.0); Neutrophils % 59.6; Nucleated RBC 0 %; RBC 4.27 10^6/uL (3.93-5.22); RDW 13.3 % (11.7-14.6); RDW-SD 45.3 fL; WBC 5.08 10^3/uL (4.4-10.8)
[2020-09-17 11:02] LABS: Diff Comment PLT Morph Reviewed; Platelet Count 88 10^3/uL (130-400); RBC Morphology Normal
== END 2020-09-17 10:10 | disposition home or self-care (01) ==
LOC: LBO 10:10
PROVIDERS: PCP Family Medicine; Visit Provider Internal Medicine Hematology & Oncology
DX: D69.6 Thrombocytopenia, unspecified (principal)
CPT/HCPCS: 36415; 85025

== ENCOUNTER 2020-09-22 02:55 | Outpatient (CLI) | payer MEDICARE, SELFPAY ==
[2020-09-22 10:40] LABS: Abs Immature Grans 0.01 10^3/uL (0.0-0.06); Absolute Basophil Count 0.06 10^3/uL (0.0-0.2); Absolute Eosinophil Count 0.15 10^3/uL (0.0-0.7); Absolute Lymphocyte Count 1.18 10^3/uL (1.2-3.4); Absolute Monocyte Count 0.42 10^3/uL (0.1-0.8); Absolute Neutrophil Count 2.07 10^3/uL (1.2-6.7); Basophils % 1.5; Eosinophils % 3.9; HCT 41.5 % (36.0-46.0); HGB 13.5 g/dL (11.2-15.7); Immature Grans % 0.3; Lymphocytes % 30.3; MCH 30.3 pg (27.0-33.0); MCHC 32.5 % (32.0-36.0); MPV 10.8 fL (8.0-11.0); Monocytes % 10.8; Neutrophils % 53.2; Nucleated RBC 0 %; Platelet Count 155 10^3/uL (130-400); RBC 4.46 10^6/uL (3.93-5.22); RDW 13.2 % (11.7-14.6); WBC 3.89 10^3/uL (4.4-10.8)
== END 2020-09-22 02:56 | disposition home or self-care (01) ==
LOC: LBO 02:55
PROVIDERS: PCP Family Medicine; Visit Provider Internal Medicine Hematology & Oncology
DX: D69.6 Thrombocytopenia, unspecified (principal)
CPT/HCPCS: 36415; 85025

== ENCOUNTER 2020-09-29 04:28 | Outpatient (CLI) | payer MEDICARE, SELFPAY ==
[2020-09-29 10:47] LABS: Abs Immature Grans 0.01 10^3/uL (0.0-0.06); Absolute Eosinophil Count 0.14 10^3/uL (0.0-0.7); Absolute Lymphocyte Count 1.37 10^3/uL (1.2-3.4); Absolute Monocyte Count 0.54 10^3/uL (0.1-0.8); Absolute Neutrophil Count 2.72 10^3/uL (1.2-6.7); Eosinophils % 2.9; HCT 42.4 % (36.0-46.0); HGB 13.8 g/dL (11.2-15.7); Immature Grans % 0.2; Lymphocytes % 28.1; MCH 30.4 pg (27.0-33.0); MCHC 32.5 % (32.0-36.0); MCV 93.4 fL (80-95); MPV 11.4 fL (8.0-11.0); Monocytes % 11.1; Neutrophils % 55.7; Nucleated RBC 0 %; Platelet Count 150 10^3/uL (130-400); RBC 4.54 10^6/uL (3.93-5.22); RDW 13.2 % (11.7-14.6); RDW-SD 45.2 fL; WBC 4.88 10^3/uL (4.4-10.8)
== END 2020-09-29 04:29 | disposition home or self-care (01) ==
LOC: LBO 04:28
PROVIDERS: PCP Family Medicine; Visit Provider Internal Medicine Hematology & Oncology
DX: D69.6 Thrombocytopenia, unspecified (principal)
CPT/HCPCS: 36415; 85025

== ENCOUNTER 2020-10-06 04:25 | Outpatient (CLI) | payer MEDICARE, SELFPAY ==
[2020-10-06 10:09] LABS: Abs Immature Grans 0.01 10^3/uL (0.0-0.06); Absolute Basophil Count 0.09 10^3/uL (0.0-0.2); Absolute Eosinophil Count 0.09 10^3/uL (0.0-0.7); Absolute Lymphocyte Count 1.46 10^3/uL (1.2-3.4); Absolute Monocyte Count 0.45 10^3/uL (0.1-0.8); Basophils % 1.8; Eosinophils % 1.8; HGB 14.1 g/dL (11.2-15.7); Immature Grans % 0.2; Lymphocytes % 28.6; MCH 30.7 pg (27.0-33.0); MCHC 32.8 % (32.0-36.0); MCV 93.5 fL (80-95); MPV 11.2 fL (8.0-11.0); Monocytes % 8.8; Neutrophils % 58.8; Nucleated RBC 0 %; Platelet Count 129 10^3/uL (130-400); RDW 12.9 % (11.7-14.6); RDW-SD 43.9 fL
== END 2020-10-06 04:26 | disposition home or self-care (01) ==
LOC: LBO 04:25
PROVIDERS: PCP Family Medicine; Visit Provider Internal Medicine Hematology & Oncology
DX: D69.6 Thrombocytopenia, unspecified (principal)
CPT/HCPCS: 36415; 85025

== ENCOUNTER 2020-10-13 03:12 | Outpatient (CLI) | payer MEDICARE, SELFPAY ==
[2020-10-13 10:20] LABS: Abs Immature Grans 0.02 10^3/uL (0.0-0.06); Absolute Basophil Count 0.08 10^3/uL (0.0-0.2); Absolute Eosinophil Count 0.13 10^3/uL (0.0-0.7); Absolute Lymphocyte Count 1.34 10^3/uL (1.2-3.4); Absolute Monocyte Count 0.56 10^3/uL (0.1-0.8); Absolute Neutrophil Count 3.11 10^3/uL (1.2-6.7); Basophils % 1.5; Eosinophils % 2.5; HCT 44.2 % (36.0-46.0); HGB 14.4 g/dL (11.2-15.7); Immature Grans % 0.4; Lymphocytes % 25.6; MCH 30.6 pg (27.0-33.0); MCHC 32.6 % (32.0-36.0); MCV 93.8 fL (80-95); MPV 11.9 fL (8.0-11.0); Monocytes % 10.7; Neutrophils % 59.3; Nucleated RBC 0 %; RBC 4.71 10^6/uL (3.93-5.22); RDW 12.8 % (11.7-14.6); RDW-SD 44.2 fL; WBC 5.24 10^3/uL (4.4-10.8)
[2020-10-13 10:31] LABS: Diff Comment Diff Reviewed; Platelet Count 99 10^3/uL (130-400); RBC Morphology Normal
== END 2020-10-13 03:13 | disposition home or self-care (01) ==
LOC: LBO 03:12
PROVIDERS: PCP Family Medicine; Visit Provider Internal Medicine Hematology & Oncology
DX: D69.6 Thrombocytopenia, unspecified (principal)
CPT/HCPCS: 36415; 85025

== ENCOUNTER 2020-10-20 03:45 | Outpatient (CLI) | payer MEDICARE, SELFPAY ==
[2020-10-20 10:31] LABS: Abs Immature Grans 0.01 10^3/uL (0.0-0.06); Absolute Basophil Count 0.09 10^3/uL (0.0-0.2); Absolute Eosinophil Count 0.11 10^3/uL (0.0-0.7); Absolute Lymphocyte Count 1.39 10^3/uL (1.2-3.4); Absolute Neutrophil Count 3.28 10^3/uL (1.2-6.7); Basophils % 1.7; HCT 43.1 % (36.0-46.0); Immature Grans % 0.2; Lymphocytes % 25.8; MCH 30.1 pg (27.0-33.0); MCHC 32.5 % (32.0-36.0); MCV 92.7 fL (80-95); MPV 11.8 fL (8.0-11.0); Monocytes % 9.3; Nucleated RBC 0 %; RBC 4.65 10^6/uL (3.93-5.22); RDW 12.6 % (11.7-14.6); RDW-SD 42.8 fL; WBC 5.38 10^3/uL (4.4-10.8)
[2020-10-20 10:42] LABS: Platelet Count 95 10^3/uL (130-400)
== END 2020-10-20 03:46 | disposition home or self-care (01) ==
LOC: LBO 03:45
PROVIDERS: PCP Family Medicine; Visit Provider Internal Medicine Hematology & Oncology
DX: D69.6 Thrombocytopenia, unspecified (principal)
CPT/HCPCS: 36415; 85025

== ENCOUNTER 2020-10-27 04:29 | Outpatient (CLI) | payer MEDICARE, SELFPAY ==
[2020-10-27 10:15] LABS: Abs Immature Grans 0.01 10^3/uL (0.0-0.06); Absolute Basophil Count 0.08 10^3/uL (0.0-0.2); Absolute Lymphocyte Count 1.32 10^3/uL (1.2-3.4); Absolute Monocyte Count 0.44 10^3/uL (0.1-0.8); Absolute Neutrophil Count 2.63 10^3/uL (1.2-6.7); Basophils % 1.7; Eosinophils % 2.2; HCT 42.7 % (36.0-46.0); HGB 14.1 g/dL (11.2-15.7); Immature Grans % 0.2; Lymphocytes % 28.8; MCH 30.9 pg (27.0-33.0); MCV 93.4 fL (80-95); MPV 11.9 fL (8.0-11.0); Monocytes % 9.6; Neutrophils % 57.5; Nucleated RBC 0 %; RBC 4.57 10^6/uL (3.93-5.22); RDW 12.3 % (11.7-14.6); RDW-SD 42.4 fL; WBC 4.58 10^3/uL (4.4-10.8)
[2020-10-27 10:24] LABS: Platelet Count 95 10^3/uL (130-400)
== END 2020-10-27 04:30 | disposition home or self-care (01) ==
LOC: LBO 04:30
PROVIDERS: PCP Family Medicine; Visit Provider Internal Medicine Hematology & Oncology
DX: D69.6 Thrombocytopenia, unspecified (principal)
CPT/HCPCS: 36415; 85025

== ENCOUNTER 2020-11-03 04:26 | Outpatient (CLI) | payer MEDICARE, SELFPAY ==
[2020-11-03 10:18] LABS: Abs Immature Grans 0.01 10^3/uL (0.0-0.06); Absolute Basophil Count 0.09 10^3/uL (0.0-0.2); Absolute Eosinophil Count 0.09 10^3/uL (0.0-0.7); Absolute Lymphocyte Count 1.09 10^3/uL (1.2-3.4); Absolute Monocyte Count 0.46 10^3/uL (0.1-0.8); Absolute Neutrophil Count 2.56 10^3/uL (1.2-6.7); Basophils % 2.1; Eosinophils % 2.1; HCT 41.8 % (36.0-46.0); HGB 13.6 g/dL (11.2-15.7); Immature Grans % 0.2; Lymphocytes % 25.3; MCH 30.7 pg (27.0-33.0); MCHC 32.5 % (32.0-36.0); MCV 94.4 fL (80-95); Monocytes % 10.7; Neutrophils % 59.6; Nucleated RBC 0 %; RBC 4.43 10^6/uL (3.93-5.22); RDW 12.3 % (11.7-14.6)
[2020-11-03 10:39] LABS: Diff Comment Diff Reviewed; RBC Morphology Normal
[2020-11-03 10:40] LABS: Platelet Count 90 10^3/uL (130-400)
== END 2020-11-03 04:27 | disposition home or self-care (01) ==
LOC: LBO 04:26
PROVIDERS: PCP Family Medicine; Visit Provider Internal Medicine Hematology & Oncology
DX: D69.6 Thrombocytopenia, unspecified (principal)
CPT/HCPCS: 36415; 85025

== ENCOUNTER 2020-11-17 03:21 | Outpatient (CLI) | payer MEDICARE, SELFPAY ==
[2020-11-17 11:16] LABS: Abs Immature Grans 0.01 10^3/uL (0.0-0.06); Absolute Basophil Count 0.07 10^3/uL (0.0-0.2); Absolute Eosinophil Count 0.07 10^3/uL (0.0-0.7); Absolute Lymphocyte Count 1.27 10^3/uL (1.2-3.4); Absolute Monocyte Count 0.56 10^3/uL (0.1-0.8); Basophils % 1.4; Eosinophils % 1.4; HCT 43.4 % (36.0-46.0); HGB 14.1 g/dL (11.2-15.7); Immature Grans % 0.2; Lymphocytes % 25.5; MCH 30.4 pg (27.0-33.0); MCHC 32.5 % (32.0-36.0); MCV 93.5 fL (80-95); MPV 12.2 fL (8.0-11.0); Monocytes % 11.2; Neutrophils % 60.3; Nucleated RBC 0 %; RBC 4.64 10^6/uL (3.93-5.22); RDW 11.9 % (11.7-14.6); RDW-SD 41.4 fL; WBC 4.98 10^3/uL (4.4-10.8)
[2020-11-17 11:36] LABS: Diff Comment Diff Reviewed; Platelet Count 82 10^3/uL (130-400); RBC Morphology Normal
== END 2020-11-17 03:22 | disposition home or self-care (01) ==
LOC: LBO 03:21
PROVIDERS: PCP Family Medicine; Visit Provider Internal Medicine Hematology & Oncology
DX: D69.6 Thrombocytopenia, unspecified (principal)
CPT/HCPCS: 36415; 85025

== ENCOUNTER 2020-11-24 04:21 | Outpatient (CLI) | payer MEDICARE, SELFPAY ==
[2020-11-24 10:36] LABS: Abs Immature Grans 0.01 10^3/uL (0.0-0.06); Absolute Basophil Count 0.08 10^3/uL (0.0-0.2); Absolute Eosinophil Count 0.08 10^3/uL (0.0-0.7); Absolute Lymphocyte Count 1.32 10^3/uL (1.2-3.4); Absolute Monocyte Count 0.62 10^3/uL (0.1-0.8); Absolute Neutrophil Count 2.91 10^3/uL (1.2-6.7); Basophils % 1.6; Eosinophils % 1.6; HCT 43.2 % (36.0-46.0); HGB 14.1 g/dL (11.2-15.7); Immature Grans % 0.2; Lymphocytes % 26.3; MCH 30.2 pg (27.0-33.0); MCHC 32.6 % (32.0-36.0); MCV 92.5 fL (80-95); MPV 11.8 fL (8.0-11.0); Monocytes % 12.4; Neutrophils % 57.9; Nucleated RBC 0 %; RBC 4.67 10^6/uL (3.93-5.22); RDW 11.9 % (11.7-14.6); RDW-SD 40.9 fL; WBC 5.02 10^3/uL (4.4-10.8)
[2020-11-24 10:50] LABS: Diff Comment Diff Reviewed; Platelet Count 90 10^3/uL (130-400)
[2020-11-24 10:51] LABS: RBC Morphology Normal
== END 2020-11-24 04:22 | disposition home or self-care (01) ==
LOC: LBO 04:21
PROVIDERS: PCP Family Medicine; Visit Provider Internal Medicine Hematology & Oncology
DX: D69.6 Thrombocytopenia, unspecified (principal)
CPT/HCPCS: 36415; 85025

== ENCOUNTER 2020-11-27 11:24 | Outpatient (REF) | payer MEDICARE, SELFPAY ==
[2020-11-27 13:55] LABS: C Diff PCR Negative (Negative)
== END 2020-11-27 11:25 | disposition home or self-care (01) ==
LOC: LBN 11:24
PROVIDERS: PCP Family Medicine; Visit Provider Internal Medicine Hematology & Oncology
DX: R19.7 Diarrhea, unspecified (principal)
CPT/HCPCS: 87329; 87493

== ENCOUNTER 2020-12-11 02:09 | Outpatient (CLI) | payer MEDICARE, SELFPAY ==
[2020-12-11 10:49] LABS: Abs Immature Grans 0.01 10^3/uL (0.0-0.06); Absolute Basophil Count 0.08 10^3/uL (0.0-0.2); Absolute Lymphocyte Count 1.33 10^3/uL (1.2-3.4); Absolute Monocyte Count 0.53 10^3/uL (0.1-0.8); Absolute Neutrophil Count 2.89 10^3/uL (1.2-6.7); Basophils % 1.6; HCT 43.3 % (36.0-46.0); HGB 14.5 g/dL (11.2-15.7); Immature Grans % 0.2; Lymphocytes % 26.9; MCH 30.5 pg (27.0-33.0); MCHC 33.5 % (32.0-36.0); MPV 12.9 fL (8.0-11.0); Monocytes % 10.7; Neutrophils % 58.6; Nucleated RBC 0 %; RBC 4.76 10^6/uL (3.93-5.22); RDW 11.9 % (11.7-14.6); RDW-SD 39.5 fL; WBC 4.94 10^3/uL (4.4-10.8)
[2020-12-11 11:27] LABS: Platelet Count 44 10^3/uL (130-400)
== END 2020-12-11 02:10 | disposition home or self-care (01) ==
PROVIDERS: PCP Family Medicine; Visit Provider Internal Medicine Hematology & Oncology
DX: D69.6 Thrombocytopenia, unspecified (principal)
CPT/HCPCS: 36415; 85025

== ENCOUNTER 2020-12-15 03:25 | Outpatient (CLI) | payer MEDICARE, SELFPAY ==
[2020-12-15 08:05] LABS: Abs Immature Grans 0.01 10^3/uL (0.0-0.06); Absolute Basophil Count 0.07 10^3/uL (0.0-0.2); Absolute Lymphocyte Count 1.28 10^3/uL (1.2-3.4); Absolute Monocyte Count 0.54 10^3/uL (0.1-0.8); Absolute Neutrophil Count 2.55 10^3/uL (1.2-6.7); Basophils % 1.5; Eosinophils % 2.2; HCT 41.9 % (36.0-46.0); HGB 13.6 g/dL (11.2-15.7); Immature Grans % 0.2; Lymphocytes % 28.1; MCH 29.7 pg (27.0-33.0); MCHC 32.5 % (32.0-36.0); MCV 91.5 fL (80-95); Monocytes % 11.9; Neutrophils % 56.1; Nucleated RBC 0 %; RBC 4.58 10^6/uL (3.93-5.22); RDW 11.9 % (11.7-14.6); RDW-SD 39.9 fL; WBC 4.55 10^3/uL (4.4-10.8)
[2020-12-15 08:19] LABS: Diff Comment Diff Reviewed; Platelet Count 33 10^3/uL (130-400); RBC Morphology Normal
[2020-12-15 08:28] LABS: ALT 25 U/L (14-59); AST 16 U/L (15-37); Albumin 3.7 g/dL (3.4-5.0); Alkaline Phosphatase 70 U/L (46-116); Anion Gap 5.4 mmol/L (3-11); BUN 24 mg/dL (7-18); Bilirubin, Total 0.5 mg/dL (0.2-1.0); CO2 29.6 mmol/L (21.0-32.0); CREATININE 0.9 mg/dL (0.55-1.02); Calcium 9.4 mg/dL (8.5-10.1); Chloride 109 mmol/L (98-107); Glucose 95 mg/dL (74-106); Potassium 3.7 mmol/L (3.5-5.1); Sodium 144 mmol/L (136-145); Total Protein 6.9 g/dL (6.4-8.2)
== END 2020-12-15 03:26 | disposition home or self-care (01) ==
PROVIDERS: PCP Family Medicine; Visit Provider Internal Medicine Hematology & Oncology
DX: D69.3 Immune thrombocytopenic purpura (principal)
CPT/HCPCS: 36415; 80053; 85025

== ENCOUNTER 2020-12-16 03:26 | Outpatient (CLI) | payer MEDICARE, SELFPAY ==
[2020-12-16 07:40] LABS: Abs Immature Grans 0.01 10^3/uL (0.0-0.06); Absolute Basophil Count 0.08 10^3/uL (0.0-0.2); Absolute Eosinophil Count 0.06 10^3/uL (0.0-0.7); Absolute Lymphocyte Count 0.99 10^3/uL (1.2-3.4); Absolute Monocyte Count 0.54 10^3/uL (0.1-0.8); Basophils % 1.7; Eosinophils % 1.3; HCT 41.4 % (36.0-46.0); HGB 13.8 g/dL (11.2-15.7); Immature Grans % 0.2; Lymphocytes % 20.7; MCH 30.3 pg (27.0-33.0); MCHC 33.3 % (32.0-36.0); MCV 90.8 fL (80-95); MPV 11.5 fL (8.0-11.0); Monocytes % 11.3; Neutrophils % 64.8; Nucleated RBC 0 %; Platelet Count 59 10^3/uL (130-400); RBC 4.56 10^6/uL (3.93-5.22); RDW 11.7 % (11.7-14.6); RDW-SD 39.2 fL; WBC 4.78 10^3/uL (4.4-10.8)
== END 2020-12-16 03:27 | disposition home or self-care (01) ==
LOC: LBO 03:26
PROVIDERS: PCP Family Medicine; Visit Provider Internal Medicine Hematology & Oncology
DX: D69.6 Thrombocytopenia, unspecified (principal)
CPT/HCPCS: 36415; 85025

== ENCOUNTER 2020-12-17 02:56 | Outpatient (CLI) | payer MEDICARE, SELFPAY ==
[2020-12-17 10:43] LABS: Abs Immature Grans 0.01 10^3/uL (0.0-0.06); Absolute Basophil Count 0.08 10^3/uL (0.0-0.2); Absolute Eosinophil Count 0.05 10^3/uL (0.0-0.7); Absolute Lymphocyte Count 1.06 10^3/uL (1.2-3.4); Absolute Monocyte Count 0.58 10^3/uL (0.1-0.8); Absolute Neutrophil Count 2.87 10^3/uL (1.2-6.7); Basophils % 1.7; Eosinophils % 1.1; HCT 40.6 % (36.0-46.0); HGB 13.6 g/dL (11.2-15.7); Immature Grans % 0.2; Lymphocytes % 22.8; MCH 29.9 pg (27.0-33.0); MCHC 33.5 % (32.0-36.0); MCV 89.2 fL (80-95); MPV 11.1 fL (8.0-11.0); Monocytes % 12.5; Neutrophils % 61.7; Nucleated RBC 0 %; Platelet Count 85 10^3/uL (130-400); RBC 4.55 10^6/uL (3.93-5.22); RDW 11.7 % (11.7-14.6); RDW-SD 37.4 fL; WBC 4.65 10^3/uL (4.4-10.8)
== END 2020-12-17 02:57 | disposition home or self-care (01) ==
LOC: LBO 02:56
PROVIDERS: PCP Family Medicine; Visit Provider Internal Medicine Hematology & Oncology
DX: D69.6 Thrombocytopenia, unspecified (principal)
CPT/HCPCS: 36415; 85025

== ENCOUNTER 2020-12-23 03:36 | Outpatient (CLI) | payer MEDICARE, SELFPAY ==
[2020-12-23 10:43] LABS: Abs Immature Grans 0.01 10^3/uL (0.0-0.06); Absolute Basophil Count 0.08 10^3/uL (0.0-0.2); Absolute Eosinophil Count 0.09 10^3/uL (0.0-0.7); Absolute Lymphocyte Count 1.22 10^3/uL (1.2-3.4); Absolute Monocyte Count 0.43 10^3/uL (0.1-0.8); Absolute Neutrophil Count 2.29 10^3/uL (1.2-6.7); Basophils % 1.9; Eosinophils % 2.2; HCT 45.1 % (36.0-46.0); HGB 14.8 g/dL (11.2-15.7); Immature Grans % 0.2; Lymphocytes % 29.6; MCH 29.5 pg (27.0-33.0); MCHC 32.8 % (32.0-36.0); MCV 89.8 fL (80-95); MPV 12.3 fL (8.0-11.0); Monocytes % 10.4; Neutrophils % 55.7; Nucleated RBC 0 %; Platelet Count 81 10^3/uL (130-400); RBC 5.02 10^6/uL (3.93-5.22); RDW 11.8 % (11.7-14.6); RDW-SD 38.5 fL; WBC 4.12 10^3/uL (4.4-10.8)
== END 2020-12-23 03:37 | disposition home or self-care (01) ==
LOC: LBO 03:36
PROVIDERS: PCP Family Medicine; Visit Provider Internal Medicine Hematology & Oncology
DX: D69.6 Thrombocytopenia, unspecified (principal)
CPT/HCPCS: 36415; 85025

== ENCOUNTER 2021-01-06 03:49 | Outpatient (CLI) | payer MEDICARE, SELFPAY ==
[2021-01-06 10:31] LABS: Absolute Basophil Count 0.07 10^3/uL (0.0-0.2); Absolute Eosinophil Count 0.07 10^3/uL (0.0-0.7); Absolute Lymphocyte Count 1.27 10^3/uL (1.2-3.4); Absolute Monocyte Count 0.45 10^3/uL (0.1-0.8); Absolute Neutrophil Count 2.26 10^3/uL (1.2-6.7); Basophils % 1.7; Eosinophils % 1.7; HCT 41.3 % (36.0-46.0); HGB 13.7 g/dL (11.2-15.7); Lymphocytes % 30.8; MCH 29.4 pg (27.0-33.0); MCHC 33.2 % (32.0-36.0); MCV 88.6 fL (80-95); Monocytes % 10.9; Neutrophils % 54.9; Nucleated RBC 0 %; RBC 4.66 10^6/uL (3.93-5.22); RDW 11.9 % (11.7-14.6); WBC 4.12 10^3/uL (4.4-10.8)
[2021-01-06 10:38] LABS: Platelet Count 28 10^3/uL (130-400)
== END 2021-01-06 03:50 | disposition home or self-care (01) ==
LOC: LBO 03:49
PROVIDERS: PCP Family Medicine; Visit Provider Internal Medicine Hematology & Oncology
DX: D69.6 Thrombocytopenia, unspecified (principal)
CPT/HCPCS: 36415; 85025

== ENCOUNTER 2021-01-07 02:51 | Outpatient (CLI) | payer MEDICARE, SELFPAY ==
[2021-01-07 10:02] LABS: ALT 32 U/L (14-59); AST 22 U/L (15-37); Albumin 3.8 g/dL (3.4-5.0); Alkaline Phosphatase 74 U/L (46-116); Anion Gap 10.1 mmol/L (3-11); BUN 20 mg/dL (7-18); Bilirubin, Total 0.6 mg/dL (0.2-1.0); CO2 26.9 mmol/L (21.0-32.0); CREATININE 0.9 mg/dL (0.55-1.02); Calcium 9.7 mg/dL (8.5-10.1); Chloride 105 mmol/L (98-107); Glucose 97 mg/dL (74-106); Potassium 4.1 mmol/L (3.5-5.1); Sodium 142 mmol/L (136-145)
== END 2021-01-07 02:52 | disposition home or self-care (01) ==
LOC: LBO 02:52
PROVIDERS: PCP Family Medicine; Visit Provider Internal Medicine Hematology & Oncology
DX: D69.6 Thrombocytopenia, unspecified (principal)
CPT/HCPCS: 36415; 80053

== ENCOUNTER 2021-01-12 02:51 | Outpatient (CLI) | payer MEDICARE, SELFPAY ==
[2021-01-12 10:51] LABS: Absolute Basophil Count 0.03 10^3/uL (0.0-0.2); Absolute Eosinophil Count 0.06 10^3/uL (0.0-0.7); Absolute Lymphocyte Count 0.87 10^3/uL (1.2-3.4); Absolute Monocyte Count 0.56 10^3/uL (0.1-0.8); Absolute Neutrophil Count 1.92 10^3/uL (1.2-6.7); Basophils % 0.9; Eosinophils % 1.7; HCT 42.3 % (36.0-46.0); HGB 14.1 g/dL (11.2-15.7); Lymphocytes % 25.3; MCH 29.7 pg (27.0-33.0); MCHC 33.3 % (32.0-36.0); MCV 89.1 fL (80-95); MPV 11.9 fL (8.0-11.0); Monocytes % 16.3; Neutrophils % 55.8; Nucleated RBC 0 %; Platelet Count 91 10^3/uL (130-400); RBC 4.75 10^6/uL (3.93-5.22); RDW-SD 38.9 fL; WBC 3.44 10^3/uL (4.4-10.8)
[2021-01-12 11:04] LABS: ALT 34 U/L (14-59); AST 25 U/L (15-37); Albumin 3.4 g/dL (3.4-5.0); Alkaline Phosphatase 75 U/L (46-116); Anion Gap 7.8 mmol/L (3-11); BUN 24 mg/dL (7-18); Bilirubin, Total 0.5 mg/dL (0.2-1.0); CO2 29.2 mmol/L (21.0-32.0); Calcium 9.6 mg/dL (8.5-10.1); Chloride 103 mmol/L (98-107); Estimated GFR 53.76 (mL/min/1.73m2); Glucose 91 mg/dL (74-106); Sodium 140 mmol/L (136-145); Total Protein 9.6 g/dL (6.4-8.2)
== END 2021-01-12 02:52 | disposition home or self-care (01) ==
PROVIDERS: PCP Family Medicine; Visit Provider Internal Medicine Hematology & Oncology
DX: D69.6 Thrombocytopenia, unspecified (principal)
CPT/HCPCS: 36415; 80053; 85025

== ENCOUNTER 2021-01-15 02:02 | Outpatient (CLI) | payer MEDICARE, SELFPAY ==
[2021-01-15 09:46] LABS: Absolute Basophil Count 0.06 10^3/uL (0.0-0.2); Absolute Eosinophil Count 0.03 10^3/uL (0.0-0.7); Absolute Monocyte Count 0.38 10^3/uL (0.1-0.8); Absolute Neutrophil Count 1.94 10^3/uL (1.2-6.7); Basophils % 1.7; Eosinophils % 0.9; HCT 43.5 % (36.0-46.0); HGB 14.4 g/dL (11.2-15.7); Lymphocytes % 31.3; MCH 29.8 pg (27.0-33.0); MCHC 33.1 % (32.0-36.0); MCV 89.9 fL (80-95); MPV 12.2 fL (8.0-11.0); Monocytes % 10.8; Neutrophils % 55.3; Nucleated RBC 0 %; RBC 4.84 10^6/uL (3.93-5.22); RDW 11.9 % (11.7-14.6); RDW-SD 39.3 fL; WBC 3.51 10^3/uL (4.4-10.8)
[2021-01-15 09:56] LABS: Diff Comment Diff Reviewed; Platelet Count 92 10^3/uL (130-400); RBC Morphology Normal
== END 2021-01-15 02:03 | disposition home or self-care (01) ==
LOC: LBO 02:02
PROVIDERS: PCP Family Medicine; Visit Provider Internal Medicine Hematology & Oncology
DX: D69.6 Thrombocytopenia, unspecified (principal)
CPT/HCPCS: 36415; 85025

== ENCOUNTER 2021-01-26 03:53 | Outpatient (CLI) | payer MEDICARE, SELFPAY ==
[2021-01-26 07:20] LABS: Absolute Basophil Count 0.08 10^3/uL (0.0-0.2); Absolute Eosinophil Count 0.09 10^3/uL (0.0-0.7); Absolute Lymphocyte Count 1.43 10^3/uL (1.2-3.4); Absolute Monocyte Count 0.43 10^3/uL (0.1-0.8); Absolute Neutrophil Count 1.53 10^3/uL (1.2-6.7); Basophils % 2.2; Eosinophils % 2.5; HCT 41.3 % (36.0-46.0); HGB 13.4 g/dL (11.2-15.7); Lymphocytes % 40.2; MCH 29.1 pg (27.0-33.0); MCHC 32.4 % (32.0-36.0); MCV 89.8 fL (80-95); Monocytes % 12.1; Nucleated RBC 0 %; Platelet Count 45 10^3/uL (130-400); RDW 12.2 % (11.7-14.6); RDW-SD 39.4 fL; WBC 3.56 10^3/uL (4.4-10.8)
[2021-01-26 07:33] LABS: ALT 46 U/L (14-59); AST 27 U/L (15-37); Albumin 3.4 g/dL (3.4-5.0); Alkaline Phosphatase 69 U/L (46-116); Anion Gap 7.3 mmol/L (3-11); BUN 20 mg/dL (7-18); Bilirubin, Total 0.4 mg/dL (0.2-1.0); CO2 27.7 mmol/L (21.0-32.0); CREATININE 0.9 mg/dL (0.55-1.02); Calcium 9.5 mg/dL (8.5-10.1); Chloride 107 mmol/L (98-107); Glucose 103 mg/dL (74-106); Potassium 4.2 mmol/L (3.5-5.1); Sodium 142 mmol/L (136-145); Total Protein 8.1 g/dL (6.4-8.2)
[2021-01-26 07:40] LABS: Diff Comment Diff Reviewed; RBC Morphology Normal
== END 2021-01-26 03:54 | disposition home or self-care (01) ==
PROVIDERS: PCP Family Medicine; Visit Provider Internal Medicine Hematology & Oncology
DX: D69.6 Thrombocytopenia, unspecified (principal)
CPT/HCPCS: 36415; 80053; 85025

== ENCOUNTER 2021-02-03 04:14 | Outpatient (CLI) | payer MEDICARE, SELFPAY ==
[2021-02-03 07:18] LABS: Abs Immature Grans 0.01 10^3/uL (0.0-0.06); Absolute Basophil Count 0.08 10^3/uL (0.0-0.2); Absolute Eosinophil Count 0.09 10^3/uL (0.0-0.7); Absolute Lymphocyte Count 1.27 10^3/uL (1.2-3.4); Absolute Monocyte Count 0.47 10^3/uL (0.1-0.8); Absolute Neutrophil Count 2.29 10^3/uL (1.2-6.7); Basophils % 1.9; Eosinophils % 2.1; HCT 40.9 % (36.0-46.0); HGB 13.5 g/dL (11.2-15.7); Immature Grans % 0.2; Lymphocytes % 30.2; MCH 29.9 pg (27.0-33.0); MCV 90.7 fL (80-95); MPV 13.5 fL (8.0-11.0); Monocytes % 11.2; Neutrophils % 54.4; Nucleated RBC 0 %; Platelet Count 34 10^3/uL (130-400); RBC 4.51 10^6/uL (3.93-5.22); RDW 12.7 % (11.7-14.6); RDW-SD 41.4 fL; WBC 4.21 10^3/uL (4.4-10.8)
== END 2021-02-03 04:15 | disposition home or self-care (01) ==
PROVIDERS: PCP Family Medicine; Visit Provider Internal Medicine Hematology & Oncology
DX: D69.6 Thrombocytopenia, unspecified (principal)
CPT/HCPCS: 36415; 85025

== ENCOUNTER 2021-02-10 04:02 | Outpatient (CLI) | payer MEDICARE, SELFPAY ==
[2021-02-10 11:11] LABS: Abs Immature Grans 0.01 10^3/uL (0.0-0.06); Absolute Basophil Count 0.08 10^3/uL (0.0-0.2); Absolute Eosinophil Count 0.09 10^3/uL (0.0-0.7); Absolute Lymphocyte Count 1.15 10^3/uL (1.2-3.4); Absolute Monocyte Count 0.53 10^3/uL (0.1-0.8); Absolute Neutrophil Count 3.04 10^3/uL (1.2-6.7); Basophils % 1.6; Eosinophils % 1.8; HCT 40.5 % (36.0-46.0); HGB 13.2 g/dL (11.2-15.7); Immature Grans % 0.2; Lymphocytes % 23.5; MCH 29.3 pg (27.0-33.0); MCHC 32.6 % (32.0-36.0); MCV 89.8 fL (80-95); MPV 12.4 fL (8.0-11.0); Monocytes % 10.8; Neutrophils % 62.1; Nucleated RBC 0 %; RBC 4.51 10^6/uL (3.93-5.22); RDW 12.8 % (11.7-14.6)
[2021-02-10 11:20] LABS: Platelet Count 48 10^3/uL (130-400)
[2021-02-10 11:21] LABS: Diff Comment Diff Reviewed; RBC Morphology Normal
== END 2021-02-10 04:03 | disposition home or self-care (01) ==
LOC: LBO 04:02
PROVIDERS: PCP Family Medicine; Visit Provider Internal Medicine Hematology & Oncology
DX: D69.6 Thrombocytopenia, unspecified (principal)
CPT/HCPCS: 36415; 85025

== ENCOUNTER 2021-02-18 03:15 | Outpatient (CLI) | payer MEDICARE, SELFPAY ==
[2021-02-18 10:43] LABS: Absolute Basophil Count 0.07 10^3/uL (0.0-0.2); Absolute Eosinophil Count 0.08 10^3/uL (0.0-0.7); Absolute Monocyte Count 0.35 10^3/uL (0.1-0.8); Absolute Neutrophil Count 2.63 10^3/uL (1.2-6.7); Basophils % 1.6; Eosinophils % 1.8; HCT 40.9 % (36.0-46.0); HGB 13.6 g/dL (11.2-15.7); Lymphocytes % 27.7; MCH 29.9 pg (27.0-33.0); MCHC 33.3 % (32.0-36.0); MCV 89.9 fL (80-95); MPV 13.9 fL (8.0-11.0); Monocytes % 8.1; Neutrophils % 60.8; Nucleated RBC 0 %; RBC 4.55 10^6/uL (3.93-5.22); RDW 12.9 % (11.7-14.6); RDW-SD 41.9 fL; WBC 4.33 10^3/uL (4.4-10.8)
[2021-02-18 11:07] LABS: Platelet Count 32 10^3/uL (130-400)
== END 2021-02-18 03:16 | disposition home or self-care (01) ==
LOC: LBO 03:15
PROVIDERS: PCP Family Medicine; Visit Provider Internal Medicine Hematology & Oncology
DX: D69.6 Thrombocytopenia, unspecified (principal)
CPT/HCPCS: 36415; 85025

== ENCOUNTER 2021-03-17 03:47 | Outpatient (CLI) | payer MEDICARE, SELFPAY ==
[2021-03-17 13:34] LABS: Abs Immature Grans 0.02 10^3/uL (0.0-0.06); Absolute Basophil Count 0.08 10^3/uL (0.0-0.2); Absolute Eosinophil Count 0.09 10^3/uL (0.0-0.7); Absolute Lymphocyte Count 1.23 10^3/uL (1.2-3.4); Absolute Monocyte Count 0.57 10^3/uL (0.1-0.8); Absolute Neutrophil Count 3.64 10^3/uL (1.2-6.7); Basophils % 1.4; Eosinophils % 1.6; HCT 42.3 % (36.0-46.0); HGB 13.7 g/dL (11.2-15.7); Immature Grans % 0.4; Lymphocytes % 21.8; MCH 29.3 pg (27.0-33.0); MCHC 32.4 % (32.0-36.0); MCV 90.4 fL (80-95); MPV 11.6 fL (8.0-11.0); Monocytes % 10.1; Neutrophils % 64.7; Nucleated RBC 0 %; Platelet Count 143 10^3/uL (130-400); RBC 4.68 10^6/uL (3.93-5.22); RDW 13.3 % (11.7-14.6); RDW-SD 43.9 fL; WBC 5.63 10^3/uL (4.4-10.8)
== END 2021-03-17 03:48 | disposition home or self-care (01) ==
LOC: LBO 03:47
PROVIDERS: PCP Family Medicine; Visit Provider Internal Medicine Hematology & Oncology
DX: D69.6 Thrombocytopenia, unspecified (principal)
CPT/HCPCS: 36415; 85025

== ENCOUNTER 2021-04-14 01:50 | Outpatient (CLI) | payer MEDICARE, SELFPAY ==
[2021-04-14 10:45] LABS: Abs Immature Grans 0.02 10^3/uL (0.0-0.06); Absolute Eosinophil Count 0.15 10^3/uL (0.0-0.7); Absolute Lymphocyte Count 1.19 10^3/uL (1.2-3.4); Absolute Monocyte Count 0.49 10^3/uL (0.1-0.8); Absolute Neutrophil Count 3.57 10^3/uL (1.2-6.7); Basophils % 1.8; Eosinophils % 2.7; HCT 43.4 % (36.0-46.0); HGB 14.3 g/dL (11.2-15.7); Immature Grans % 0.4; Lymphocytes % 21.6; MCH 30.3 pg (27.0-33.0); MCHC 32.9 % (32.0-36.0); MCV 91.9 fL (80-95); MPV 11.3 fL (8.0-11.0); Monocytes % 8.9; Neutrophils % 64.6; Nucleated RBC 0 %; Platelet Count 110 10^3/uL (130-400); RBC 4.72 10^6/uL (3.93-5.22); RDW 13.1 % (11.7-14.6); RDW-SD 44.2 fL; WBC 5.52 10^3/uL (4.4-10.8)
== END 2021-04-14 01:51 | disposition home or self-care (01) ==
LOC: LBO 01:51
PROVIDERS: PCP Family Medicine; Visit Provider Internal Medicine Hematology & Oncology
DX: D69.6 Thrombocytopenia, unspecified (principal)
CPT/HCPCS: 36415; 85025

== ENCOUNTER 2021-04-27 03:21 | Outpatient (CLI) | payer MEDICARE, SELFPAY ==
[2021-04-27 10:44] LABS: Abs Immature Grans 0.01 10^3/uL (0.0-0.06); Absolute Basophil Count 0.08 10^3/uL (0.0-0.2); Absolute Eosinophil Count 0.21 10^3/uL (0.0-0.7); Absolute Lymphocyte Count 1.13 10^3/uL (1.2-3.4); Absolute Monocyte Count 0.46 10^3/uL (0.1-0.8); Absolute Neutrophil Count 2.79 10^3/uL (1.2-6.7); Basophils % 1.7; Eosinophils % 4.5; HCT 42.4 % (36.0-46.0); HGB 13.9 g/dL (11.2-15.7); Immature Grans % 0.2; Lymphocytes % 24.1; MCHC 32.8 % (32.0-36.0); MCV 91.6 fL (80-95); MPV 11.4 fL (8.0-11.0); Monocytes % 9.8; Neutrophils % 59.7; Nucleated RBC 0 %; Platelet Count 129 10^3/uL (130-400); RBC 4.63 10^6/uL (3.93-5.22); RDW 12.7 % (11.7-14.6); RDW-SD 42.5 fL; WBC 4.68 10^3/uL (4.4-10.8)
== END 2021-04-27 03:22 | disposition home or self-care (01) ==
LOC: LBO 03:21
PROVIDERS: PCP Family Medicine; Visit Provider Internal Medicine Hematology & Oncology
DX: D69.3 Immune thrombocytopenic purpura (principal)
CPT/HCPCS: 36415; 85025

== ENCOUNTER 2021-05-18 03:04 | Outpatient (CLI) | payer MEDICARE, SELFPAY ==
[2021-05-18 11:42] LABS: Abs Immature Grans 0.01 10^3/uL (0.0-0.06); Absolute Basophil Count 0.08 10^3/uL (0.0-0.2); Absolute Lymphocyte Count 1.46 10^3/uL (1.2-3.4); Absolute Neutrophil Count 3.47 10^3/uL (1.2-6.7); Basophils % 1.4; Eosinophils % 3.4; HGB 14.3 g/dL (11.2-15.7); Immature Grans % 0.2; Lymphocytes % 25.1; MCH 29.9 pg (27.0-33.0); MCHC 33.3 % (32.0-36.0); MCV 89.8 fL (80-95); MPV 11.6 fL (8.0-11.0); Monocytes % 10.3; Neutrophils % 59.6; Nucleated RBC 0 %; Platelet Count 114 10^3/uL (130-400); RBC 4.79 10^6/uL (3.93-5.22); RDW 12.4 % (11.7-14.6); RDW-SD 40.7 fL; WBC 5.82 10^3/uL (4.4-10.8)
== END 2021-05-18 03:05 | disposition home or self-care (01) ==
LOC: LBO 03:05
PROVIDERS: PCP Family Medicine; Visit Provider Internal Medicine Hematology & Oncology
DX: D69.6 Thrombocytopenia, unspecified (principal)
CPT/HCPCS: 36415; 85025

== ENCOUNTER 2021-06-08 04:02 | Outpatient (CLI) | payer MEDICARE, SELFPAY ==
[2021-06-08 11:10] LABS: Abs Immature Grans 0.02 10^3/uL (0.0-0.06); Absolute Basophil Count 0.09 10^3/uL (0.0-0.2); Absolute Eosinophil Count 0.08 10^3/uL (0.0-0.7); Absolute Lymphocyte Count 1.42 10^3/uL (1.2-3.4); Absolute Monocyte Count 0.94 10^3/uL (0.1-0.8); Absolute Neutrophil Count 6.46 10^3/uL (1.2-6.7); Eosinophils % 0.9; HCT 42.2 % (36.0-46.0); Immature Grans % 0.2; Lymphocytes % 15.8; MCH 30.2 pg (27.0-33.0); MCHC 33.2 % (32.0-36.0); MCV 90.9 fL (80-95); MPV 11.7 fL (8.0-11.0); Monocytes % 10.4; Neutrophils % 71.7; Nucleated RBC 0 %; Platelet Count 131 10^3/uL (130-400); RBC 4.64 10^6/uL (3.93-5.22); RDW 12.2 % (11.7-14.6); RDW-SD 40.6 fL; WBC 9.01 10^3/uL (4.4-10.8)
== END 2021-06-08 04:03 | disposition home or self-care (01) ==
LOC: LBO 04:02
PROVIDERS: PCP Family Medicine; Visit Provider Internal Medicine Hematology & Oncology
DX: D69.6 Thrombocytopenia, unspecified (principal)
CPT/HCPCS: 36415; 85025

== ENCOUNTER 2021-07-06 03:02 | Outpatient (CLI) | payer MEDICARE, SELFPAY ==
[2021-07-06 10:55] LABS: Abs Immature Grans 0.02 10^3/uL (0.0-0.06); Absolute Basophil Count 0.08 10^3/uL (0.0-0.2); Absolute Lymphocyte Count 1.23 10^3/uL (1.2-3.4); Absolute Monocyte Count 0.51 10^3/uL (0.1-0.8); Absolute Neutrophil Count 4.31 10^3/uL (1.2-6.7); Basophils % 1.3; Eosinophils % 1.6; HCT 43.1 % (36.0-46.0); HGB 14.1 g/dL (11.2-15.7); Immature Grans % 0.3; Lymphocytes % 19.7; MCH 30.1 pg (27.0-33.0); MCHC 32.7 % (32.0-36.0); MCV 92.1 fL (80-95); MPV 11.4 fL (8.0-11.0); Monocytes % 8.2; Neutrophils % 68.9; Nucleated RBC 0 %; Platelet Count 124 10^3/uL (130-400); RBC 4.68 10^6/uL (3.93-5.22); RDW 12.1 % (11.7-14.6); RDW-SD 40.7 fL; WBC 6.25 10^3/uL (4.4-10.8)
== END 2021-07-06 03:03 | disposition home or self-care (01) ==
LOC: LBO 03:03
PROVIDERS: PCP Family Medicine; Visit Provider Internal Medicine Hematology & Oncology
DX: D69.6 Thrombocytopenia, unspecified (principal)
CPT/HCPCS: 36415; 85025

== ENCOUNTER 2021-08-03 02:35 | Outpatient (CLI) | payer MEDICARE, SELFPAY ==
[2021-08-03 10:50] LABS: Abs Immature Grans 0.01 10^3/uL (0.0-0.06); Absolute Basophil Count 0.09 10^3/uL (0.0-0.2); Absolute Eosinophil Count 0.08 10^3/uL (0.0-0.7); Absolute Monocyte Count 0.45 10^3/uL (0.1-0.8); Absolute Neutrophil Count 3.23 10^3/uL (1.2-6.7); Basophils % 1.8; Eosinophils % 1.6; HCT 44.2 % (36.0-46.0); HGB 14.5 g/dL (11.2-15.7); Immature Grans % 0.2; Lymphocytes % 23.7; MCHC 32.8 % (32.0-36.0); MCV 91.3 fL (80-95); Monocytes % 8.9; Neutrophils % 63.8; Nucleated RBC 0 %; Platelet Count 122 10^3/uL (130-400); RBC 4.84 10^6/uL (3.93-5.22); RDW-SD 40.1 fL; WBC 5.06 10^3/uL (4.4-10.8)
== END 2021-08-03 02:36 | disposition home or self-care (01) ==
LOC: LBO 02:36
PROVIDERS: PCP Family Medicine; Visit Provider Internal Medicine Hematology & Oncology
DX: D69.6 Thrombocytopenia, unspecified (principal)
CPT/HCPCS: 36415; 85025

== ENCOUNTER 2021-09-07 03:48 | Outpatient (CLI) | payer MEDICARE, SELFPAY ==
[2021-09-07 10:48] LABS: Abs Immature Grans 0.01 10^3/uL (0.0-0.06); Absolute Basophil Count 0.09 10^3/uL (0.0-0.2); Absolute Eosinophil Count 0.13 10^3/uL (0.0-0.7); Absolute Lymphocyte Count 1.36 10^3/uL (1.2-3.4); Absolute Monocyte Count 0.61 10^3/uL (0.1-0.8); Absolute Neutrophil Count 3.32 10^3/uL (1.2-6.7); Basophils % 1.6; Eosinophils % 2.4; HGB 14.2 g/dL (11.2-15.7); Immature Grans % 0.2; Lymphocytes % 24.6; MCH 30.1 pg (27.0-33.0); MCV 91.3 fL (80-95); MPV 11.1 fL (8.0-11.0); Monocytes % 11.1; Neutrophils % 60.1; Nucleated RBC 0 %; Platelet Count 125 10^3/uL (130-400); RBC 4.71 10^6/uL (3.93-5.22); RDW 12.3 % (11.7-14.6); RDW-SD 41.1 fL; WBC 5.52 10^3/uL (4.4-10.8)
[2021-09-07 11:02] LABS: ALT 23 U/L (14-59); AST 15 U/L (15-37); Alkaline Phosphatase 66 U/L (46-116); Anion Gap 5.2 mmol/L (3-11); BUN 23 mg/dL (7-18); Bilirubin, Total 0.6 mg/dL (0.2-1.0); CO2 32.8 mmol/L (21.0-32.0); CREATININE 0.9 mg/dL (0.55-1.02); Chloride 103 mmol/L (98-107); Glucose 85 mg/dL (74-106); Potassium 3.8 mmol/L (3.5-5.1); Sodium 141 mmol/L (136-145); Total Protein 7.5 g/dL (6.4-8.2)
== END 2021-09-07 03:49 | disposition home or self-care (01) ==
LOC: LBO 03:48
PROVIDERS: PCP Family Medicine; Visit Provider Internal Medicine Hematology & Oncology
DX: D69.6 Thrombocytopenia, unspecified (principal)
CPT/HCPCS: 36415; 80053; 85025

== ENCOUNTER 2021-11-02 04:15 | Outpatient (CLI) | payer MEDICARE, SELFPAY ==
[2021-11-02 11:00] LABS: Abs Immature Grans 0.01 10^3/uL (0.0-0.06); Absolute Basophil Count 0.11 10^3/uL (0.0-0.2); Absolute Lymphocyte Count 1.11 10^3/uL (1.2-3.4); Absolute Monocyte Count 0.68 10^3/uL (0.1-0.8); Absolute Neutrophil Count 3.43 10^3/uL (1.2-6.7); Eosinophils % 3.6; HCT 41.3 % (36.0-46.0); HGB 13.8 g/dL (11.2-15.7); Immature Grans % 0.2; MCH 30.7 pg (27.0-33.0); MCHC 33.4 % (32.0-36.0); MPV 11.8 fL (8.0-11.0); Monocytes % 12.3; Neutrophils % 61.9; Nucleated RBC 0 %; Platelet Count 121 10^3/uL (130-400); RBC 4.49 10^6/uL (3.93-5.22); RDW 12.1 % (11.7-14.6); RDW-SD 40.8 fL; WBC 5.54 10^3/uL (4.4-10.8)
== END 2021-11-02 04:16 | disposition home or self-care (01) ==
LOC: LBO 04:16
PROVIDERS: PCP Family Medicine; Visit Provider Internal Medicine Hematology & Oncology
DX: D69.6 Thrombocytopenia, unspecified (principal)
CPT/HCPCS: 36415; 85025

== ENCOUNTER → 2021-11-13 00:16 | Outpatient (CLI) | payer MEDICARE, SELFPAY ==
--- NOTE | 2021-11-13 | DI.DEXA_ITS ---
Exam(s) XR DEXA BONE DENSITY W/WO OMAR EXAM: XR DEXA BONE DENSITY W/WO OMAR CLINICAL HISTORY: HX OF NORMAL MENOPAUSE, Z78.0, SCREENING, H/O CORTICOSTEROID EXPOSURE TECHNIQUE: COMPARISON: Comparison 04/30/2008 FINDINGS: Lateral Spine Image: Unremarkable. No compression deformities identified. Left hip: Total T-Score: 0.2. This compares to 0.9 on the prior examination. This is a decrease in almost 8 pe rcent in the bone mineral density. Total Z-Score: 2.2 T- and Z-scores: Within normal limits. Lumbar Spine: Total T-Score: 2.1. This compares to 1.3 on the prior examination for an increase in 6.8 percent of t he bone mineral density. Total Z-Score: 4.7 T- and Z-scores: Within normal limits. IMPRESSION: No evidence of osteoporosis in the lumbar spine or left hip.
== END ==
PROVIDERS: PCP Family Medicine; Visit Provider Family Medicine
DX: M85.88 Other specified disorders of bone density and structure, other site; Z78.0 Asymptomatic menopausal state
CPT/HCPCS: 77080

== ENCOUNTER 2021-12-30 03:59 | Outpatient (CLI) | payer MEDICARE, SELFPAY ==
[2021-12-30 10:38] LABS: Abs Immature Grans 0.01 10^3/uL (0.0-0.06); Absolute Eosinophil Count 0.14 10^3/uL (0.0-0.7); Absolute Lymphocyte Count 1.73 10^3/uL (1.2-3.4); Absolute Monocyte Count 0.69 10^3/uL (0.1-0.8); Absolute Neutrophil Count 3.32 10^3/uL (1.2-6.7); Basophils % 1.7; Eosinophils % 2.3; HCT 41.8 % (36.0-46.0); HGB 13.7 g/dL (11.2-15.7); Immature Grans % 0.2; Lymphocytes % 28.9; MCH 30.1 pg (27.0-33.0); MCHC 32.8 % (32.0-36.0); MCV 92 fL (80-95); MPV 11.6 fL (8.0-11.0); Monocytes % 11.5; Neutrophils % 55.4; Platelet Count 107 10^3/uL (130-400); RBC 4.55 10^6/uL (3.93-5.22); RDW-SD 40.3 fL; WBC 5.99 10^3/uL (4.4-10.8)
== END 2021-12-30 04:00 | disposition home or self-care (01) ==
LOC: LBO 03:59
PROVIDERS: PCP Family Medicine; Visit Provider Internal Medicine Hematology & Oncology
DX: D69.6 Thrombocytopenia, unspecified (principal)
CPT/HCPCS: 36415; 85025

== ENCOUNTER 2022-03-01 02:51 | Outpatient (CLI) | payer MEDICARE, SELFPAY ==
[2022-03-01 11:08] LABS: Abs Immature Grans 0.01 10^3/uL (0.0-0.06); Absolute Eosinophil Count 0.16 10^3/uL (0.0-0.7); Absolute Lymphocyte Count 1.33 10^3/uL (1.2-3.4); Absolute Monocyte Count 0.46 10^3/uL (0.1-0.8); Absolute Neutrophil Count 3.31 10^3/uL (1.2-6.7); Basophils % 1.9; HCT 43.2 % (36.0-46.0); HGB 14.1 g/dL (11.2-15.7); Immature Grans % 0.2; Lymphocytes % 24.8; MCH 29.9 pg (27.0-33.0); MCHC 32.6 % (32.0-36.0); MCV 92 fL (80-95); MPV 11.6 fL (8.0-11.0); Monocytes % 8.6; Neutrophils % 61.5; Platelet Count 142 10^3/uL (130-400); RBC 4.71 10^6/uL (3.93-5.22); RDW 12.3 % (11.7-14.6); RDW-SD 40.8 fL; WBC 5.37 10^3/uL (4.4-10.8)
== END 2022-03-01 02:52 | disposition home or self-care (01) ==
LOC: LBO 02:52
PROVIDERS: PCP Family Medicine; Visit Provider Internal Medicine Hematology & Oncology
DX: D69.6 Thrombocytopenia, unspecified (principal)
CPT/HCPCS: 36415; 80053; 85025

== ENCOUNTER 2022-05-03 03:59 | Outpatient (CLI) | payer MEDICARE, SELFPAY ==
[2022-05-03 11:01] LABS: Abs Immature Grans 0.02 10^3/uL (0.0-0.06); Absolute Eosinophil Count 0.09 10^3/uL (0.0-0.7); Absolute Lymphocyte Count 1.33 10^3/uL (1.2-3.4); Absolute Monocyte Count 0.53 10^3/uL (0.1-0.8); Absolute Neutrophil Count 3.63 10^3/uL (1.2-6.7); Basophils % 1.8; Eosinophils % 1.6; HCT 42.6 % (36.0-46.0); HGB 14.1 g/dL (11.2-15.7); Immature Grans % 0.4; Lymphocytes % 23.3; MCH 30.3 pg (27.0-33.0); MCHC 33.1 % (32.0-36.0); MCV 92 fL (80-95); MPV 12.3 fL (8.0-11.0); Monocytes % 9.3; Neutrophils % 63.6; Platelet Count 126 10^3/uL (130-400); RBC 4.65 10^6/uL (3.93-5.22); RDW 12.3 % (11.7-14.6); RDW-SD 40.7 fL
== END 2022-05-03 04:00 | disposition home or self-care (01) ==
LOC: LBO 04:01
PROVIDERS: PCP Family Medicine; Visit Provider Internal Medicine Hematology & Oncology
DX: D69.6 Thrombocytopenia, unspecified (principal)
CPT/HCPCS: 36415; 85025

== ENCOUNTER 2022-07-05 03:57 | Outpatient (CLI) | payer MEDICARE, SELFPAY ==
[2022-07-05 10:43] LABS: Abs Immature Grans 0.01 10^3/uL (0.0-0.06); Absolute Basophil Count 0.07 10^3/uL (0.0-0.2); Absolute Eosinophil Count 0.09 10^3/uL (0.0-0.7); Absolute Lymphocyte Count 1.43 10^3/uL (1.2-3.4); Absolute Neutrophil Count 3.37 10^3/uL (1.2-6.7); Basophils % 1.3; Eosinophils % 1.6; HCT 41.4 % (36.0-46.0); HGB 13.8 g/dL (11.2-15.7); Immature Grans % 0.2; Lymphocytes % 25.7; MCH 30.5 pg (27.0-33.0); MCHC 33.3 % (32.0-36.0); MCV 92 fL (80-95); Monocytes % 10.8; Neutrophils % 60.4; Platelet Count 122 10^3/uL (130-400); RBC 4.52 10^6/uL (3.93-5.22); RDW 12.1 % (11.7-14.6); WBC 5.57 10^3/uL (4.4-10.8)
[2022-07-05 11:01] LABS: ALT 21 U/L (14-59); AST 15 U/L (15-37); Albumin 3.9 g/dL (3.4-5.0); Alkaline Phosphatase 61 U/L (46-116); Anion Gap 8.2 mmol/L (3-11); BUN 24 mg/dL (7-18); Bilirubin, Total 0.6 mg/dL (0.2-1.0); CO2 28.8 mmol/L (21.0-32.0); CREATININE 0.9 mg/dL (0.55-1.02); Calcium 9.7 mg/dL (8.5-10.1); Chloride 104 mmol/L (98-107); Estimated GFR 65.44 (mL/min/1.73m2); Glucose 94 mg/dL (74-106); Potassium 4.2 mmol/L (3.5-5.1); Sodium 141 mmol/L (136-145); Total Protein 7.3 g/dL (6.4-8.2)
== END 2022-07-05 03:58 | disposition home or self-care (01) ==
LOC: LBO 03:57
PROVIDERS: PCP Family Medicine; Visit Provider Internal Medicine Hematology & Oncology
DX: D69.6 Thrombocytopenia, unspecified (principal)
CPT/HCPCS: 36415; 80053; 85025

== ENCOUNTER 2022-09-07 03:38 | Outpatient (CLI) | payer MEDICARE, SELFPAY ==
[2022-09-07 10:55] LABS: Abs Immature Grans 0.02 10^3/uL (0.0-0.06); Absolute Basophil Count 0.09 10^3/uL (0.0-0.2); Absolute Eosinophil Count 0.08 10^3/uL (0.0-0.7); Absolute Lymphocyte Count 1.48 10^3/uL (1.2-3.4); Absolute Monocyte Count 0.48 10^3/uL (0.1-0.8); Absolute Neutrophil Count 2.83 10^3/uL (1.2-6.7); Basophils % 1.8; Eosinophils % 1.6; HGB 13.9 g/dL (11.2-15.7); Immature Grans % 0.4; Lymphocytes % 29.7; MCH 30.7 pg (27.0-33.0); MCHC 33.1 % (32.0-36.0); MCV 93 fL (80-95); MPV 11.9 fL (8.0-11.0); Monocytes % 9.6; Neutrophils % 56.9; Platelet Count 122 10^3/uL (130-400); RBC 4.53 10^6/uL (3.93-5.22); RDW 12.1 % (11.7-14.6); RDW-SD 41.6 fL; WBC 4.98 10^3/uL (4.4-10.8)
== END 2022-09-07 03:39 | disposition home or self-care (01) ==
PROVIDERS: PCP Family Medicine; Visit Provider Nurse Practitioner Adult Health
DX: D69.6 Thrombocytopenia, unspecified (principal)
CPT/HCPCS: 36415; 85025

== ENCOUNTER 2022-11-30 04:47 | Outpatient (CLI) | payer MEDICARE, SELFPAY ==
[2022-11-30 11:11] LABS: Abs Immature Grans 0.03 10^3/uL (0.0-0.06); Absolute Eosinophil Count 0.13 10^3/uL (0.0-0.7); Absolute Monocyte Count 0.55 10^3/uL (0.1-0.8); Absolute Neutrophil Count 4.52 10^3/uL (1.2-6.7); Basophils % 1.5; Eosinophils % 1.9; HCT 42.2 % (36.0-46.0); Immature Grans % 0.4; MCH 30.7 pg (27.0-33.0); MCHC 33.2 % (32.0-36.0); MCV 93 fL (80-95); Monocytes % 8.1; Neutrophils % 66.1; Platelet Count 139 10^3/uL (130-400); RBC 4.56 10^6/uL (3.93-5.22); RDW 12.1 % (11.7-14.6); RDW-SD 41.5 fL; WBC 6.83 10^3/uL (4.4-10.8)
== END 2022-11-30 04:48 | disposition home or self-care (01) ==
PROVIDERS: PCP Family Medicine; Visit Provider Nurse Practitioner Adult Health
DX: D69.6 Thrombocytopenia, unspecified (principal)
CPT/HCPCS: 36415; 85025

== ENCOUNTER 2023-01-31 02:53 | Outpatient (CLI) | payer MEDICARE, SELFPAY ==
[2023-01-31 11:15] LABS: Abs Immature Grans 0.01 10^3/uL (0.0-0.06); Absolute Basophil Count 0.11 10^3/uL (0.0-0.2); Absolute Eosinophil Count 0.17 10^3/uL (0.0-0.7); Absolute Lymphocyte Count 1.54 10^3/uL (1.2-3.4); Absolute Neutrophil Count 4.13 10^3/uL (1.2-6.7); Basophils % 1.7; Eosinophils % 2.6; HCT 42.4 % (36.0-46.0); HGB 14.2 g/dL (11.2-15.7); Immature Grans % 0.2; Lymphocytes % 23.5; MCH 30.3 pg (27.0-33.0); MCHC 33.5 % (32.0-36.0); MCV 90 fL (80-95); MPV 11.3 fL (8.0-11.0); Monocytes % 9.1; Neutrophils % 62.9; Platelet Count 114 10^3/uL (130-400); RBC 4.69 10^6/uL (3.93-5.22); RDW 12.2 % (11.7-14.6); RDW-SD 40.3 fL; WBC 6.56 10^3/uL (4.4-10.8)
== END 2023-01-31 02:54 | disposition home or self-care (01) ==
PROVIDERS: PCP Family Medicine; Visit Provider Nurse Practitioner Adult Health
DX: D69.9 Hemorrhagic condition, unspecified (principal)
CPT/HCPCS: 36415; 85025

== ENCOUNTER 2023-04-05 02:25 | Outpatient (CLI) | payer MEDICARE, SELFPAY ==
[2023-04-05 11:16] LABS: Abs Immature Grans 0.02 10^3/uL (0.0-0.06); Absolute Basophil Count 0.09 10^3/uL (0.0-0.2); Absolute Lymphocyte Count 1.43 10^3/uL (1.2-3.4); Absolute Neutrophil Count 4.35 10^3/uL (1.2-6.7); Basophils % 1.4; Eosinophils % 1.5; HCT 39.1 % (36.0-46.0); HGB 12.9 g/dL (11.2-15.7); Immature Grans % 0.3; Lymphocytes % 21.7; MCV 91 fL (80-95); MPV 11.3 fL (8.0-11.0); Monocytes % 9.1; Platelet Count 116 10^3/uL (130-400); RDW 12.5 % (11.7-14.6); RDW-SD 41.1 fL; WBC 6.59 10^3/uL (4.4-10.8)
== END 2023-04-05 02:26 | disposition home or self-care (01) ==
PROVIDERS: PCP Family Medicine; Visit Provider Nurse Practitioner Adult Health
DX: D69.6 Thrombocytopenia, unspecified (principal)
CPT/HCPCS: 36415; 85025

== ENCOUNTER 2023-06-07 01:01 | Outpatient (CLI) | payer MEDICARE, SELFPAY ==
[2023-06-07 11:23] LABS: Abs Immature Grans 0.01 10^3/uL (0.0-0.06); Absolute Basophil Count 0.09 10^3/uL (0.0-0.2); Absolute Eosinophil Count 0.14 10^3/uL (0.0-0.7); Absolute Lymphocyte Count 1.35 10^3/uL (1.2-3.4); Absolute Monocyte Count 0.52 10^3/uL (0.1-0.8); Absolute Neutrophil Count 3.49 10^3/uL (1.2-6.7); Basophils % 1.6; Eosinophils % 2.5; HGB 14.1 g/dL (11.2-15.7); Immature Grans % 0.2; Lymphocytes % 24.1; MCH 30.1 pg (27.0-33.0); MCHC 32.8 % (32.0-36.0); MCV 92 fL (80-95); MPV 10.9 fL (8.0-11.0); Monocytes % 9.3; Neutrophils % 62.3; Platelet Count 126 10^3/uL (130-400); RBC 4.68 10^6/uL (3.93-5.22); RDW 12.5 % (11.7-14.6); RDW-SD 42.2 fL
== END 2023-06-07 01:02 | disposition home or self-care (01) ==
LOC: LBO 01:01
PROVIDERS: PCP Family Medicine; Visit Provider Nurse Practitioner Adult Health
DX: D69.6 Thrombocytopenia, unspecified (principal)
CPT/HCPCS: 36415; 85025

== ENCOUNTER 2023-07-12 04:37 | Outpatient (CLI) | payer MEDICARE, SELFPAY ==
[2023-07-12 13:31] LABS: Abs Immature Grans 0.02 10^3/uL (0.0-0.06); Absolute Basophil Count 0.09 10^3/uL (0.0-0.2); Absolute Eosinophil Count 0.11 10^3/uL (0.0-0.7); Absolute Lymphocyte Count 1.47 10^3/uL (1.2-3.4); Absolute Monocyte Count 0.66 10^3/uL (0.1-0.8); Absolute Neutrophil Count 5.13 10^3/uL (1.2-6.7); Basophils % 1.2; Eosinophils % 1.5; HCT 39.2 % (36.0-46.0); HGB 12.8 g/dL (11.2-15.7); Immature Grans % 0.3; Lymphocytes % 19.7; MCH 29.9 pg (27.0-33.0); MCHC 32.7 % (32.0-36.0); MCV 92 fL (80-95); MPV 10.3 fL (8.0-11.0); Monocytes % 8.8; Neutrophils % 68.5; Platelet Count 183 10^3/uL (130-400); RBC 4.28 10^6/uL (3.93-5.22); RDW 12.1 % (11.7-14.6); RDW-SD 40.7 fL; WBC 7.48 10^3/uL (4.4-10.8)
== END 2023-07-12 04:38 | disposition home or self-care (01) ==
PROVIDERS: PCP Family Medicine; Visit Provider Nurse Practitioner Adult Health
DX: D69.6 Thrombocytopenia, unspecified (principal)
CPT/HCPCS: 36415; 85025

== ENCOUNTER 2023-08-23 03:47 | Outpatient (CLI) | payer MEDICARE, SELFPAY ==
[2023-08-23 13:10] LABS: Abs Immature Grans 0.01 10^3/uL (0.0-0.06); Absolute Eosinophil Count 0.13 10^3/uL (0.0-0.7); Absolute Lymphocyte Count 1.91 10^3/uL (1.2-3.4); Absolute Monocyte Count 0.74 10^3/uL (0.1-0.8); Absolute Neutrophil Count 4.08 10^3/uL (1.2-6.7); Basophils % 1.4; Eosinophils % 1.9; HCT 43.3 % (36.0-46.0); HGB 14.1 g/dL (11.2-15.7); Immature Grans % 0.1; Lymphocytes % 27.4; MCH 29.8 pg (27.0-33.0); MCHC 32.6 % (32.0-36.0); MCV 92 fL (80-95); Monocytes % 10.6; Neutrophils % 58.6; Platelet Count 140 10^3/uL (130-400); RBC 4.73 10^6/uL (3.93-5.22); RDW 12.5 % (11.7-14.6); RDW-SD 42.5 fL; WBC 6.97 10^3/uL (4.4-10.8)
== END 2023-08-23 03:48 | disposition home or self-care (01) ==
LOC: LBO 03:47
PROVIDERS: PCP Family Medicine; Visit Provider Internal Medicine Hematology & Oncology
DX: D69.9 Hemorrhagic condition, unspecified (principal)
CPT/HCPCS: 36415; 85025

== ENCOUNTER 2023-11-22 05:06 | Outpatient (CLI) | payer MEDICARE, SELFPAY ==
[2023-11-22 13:05] LABS: Abs Immature Grans 0.01 10^3/uL (0.0-0.06); Absolute Eosinophil Count 0.13 10^3/uL (0.0-0.7); Absolute Lymphocyte Count 1.51 10^3/uL (1.2-3.4); Absolute Monocyte Count 0.67 10^3/uL (0.1-0.8); Absolute Neutrophil Count 4.57 10^3/uL (1.2-6.7); Basophils % 1.4; Eosinophils % 1.9; HCT 45.1 % (36.0-46.0); HGB 14.7 g/dL (11.2-15.7); Immature Grans % 0.1; Lymphocytes % 21.6; MCH 30.1 pg (27.0-33.0); MCHC 32.6 % (32.0-36.0); MCV 92 fL (80-95); MPV 11.3 fL (8.0-11.0); Monocytes % 9.6; Neutrophils % 65.4; Platelet Count 150 10^3/uL (130-400); RBC 4.89 10^6/uL (3.93-5.22); RDW 12.4 % (11.7-14.6); RDW-SD 42.1 fL; WBC 6.99 10^3/uL (4.4-10.8)
[2023-11-22 13:23] LABS: Anion Gap 6.8 mmol/L (3-11); BUN 18 mg/dL (7-18); CO2 30.2 mmol/L (21.0-32.0); Calcium 10.2 mg/dL (8.5-10.1); Chloride 107 mmol/L (98-107); Estimated GFR 56.95 (mL/min/1.73m2); Glucose 87 mg/dL (74-106); Potassium 4.5 mmol/L (3.5-5.1); Sodium 144 mmol/L (136-145)
== END 2023-11-22 05:07 | disposition home or self-care (01) ==
LOC: LBO 05:06
PROVIDERS: PCP Family Medicine; Visit Provider Internal Medicine Hematology & Oncology
DX: D69.6 Thrombocytopenia, unspecified (principal); I10 Essential (primary) hypertension
CPT/HCPCS: 36415; 80048; 85025

== ENCOUNTER 2024-02-21 01:26 | Outpatient (CLI) | payer MEDICARE, SELFPAY ==
--- OUTSIDE RECORDS SUMMARY | 2024-02-21 01:28 | XMS_ITS | Encounter Summary ---
Author Organization [facility] Address [facility] [place] [address] Care Team Providers Care Laborer Drying Department Name Role Phone Catracho Vernon MD Primary Care Provider [phone] Encounter Details Date Type Department Care Team (Late st Contact Info) Description 08/24/2023 10:30 AM EST Office Visit Hematology/Oncology at [address] [phone] Carrie Heredia MD [facility] DR HEMATOLOGY/[place] [address] Oliva Mccabe APRN [facility] DR HEMATOLOGY/[place] [address] Thrombocytopenia Social History Tobacco Use Types Packs/Day Years Used Date Smoking Tobacco: Never Smokeless Tobacco: Never Sex and Gender Information Value Date Recorded Sex Assigned at Not on file Gender Identity Female 08/21/2020 5:05 PM EST Sexual Orientation Not on file documented as of this encounter Last Filed Vital Signs Vital Sign Reading Time Taken Comments Blood Pressure 152/66 08/24/2023 10:36 AM EST Pulse 74 08/24/2023 10:36 AM EST Temperature 36 ??C (96.8 ??F) 08/24/2023 10:36 AM EST Respiratory Rate 16 08/24/2023 10:36 AM EST Oxygen Saturation 100% 08/24/2023 10:36 AM EST Inhaled Oxygen Concentration - - Weight 71.7 kg (158 lb) 08/24/2023 10:36 AM EST Height - - Body Mass Index 28 12/15/2022 11:03 AM EDT documented in this encounter Progress Notes * Carrie Heredia MD - 08/24/2023 10:30 AM EST OUTPATIENT HEMATOLOGY CONSULTATION HISTORY PRESENT ILLNESS This patient is a 78 y.o. female presenting for evaluation of thrombocytopenia, as referred by Dr Hernandez. Presentation: July 2017: 71F who had a CBC with her doctor, and was found to have plts of 11. She denied any bleeding or easy bruising. She then repeated the lab later and was found to have plts=30, and then 49. Other cell lines were normal. Tooth extraction 2 days after the first blood work. Had some bleeding but not excessive. No new meds Had a bad viral infection in April, but had resolved by time she had blood work. Had flu shot in early June, in the few days before the first platelet count was drawn. Relevant PMHx/ risk factors: Flu shot in the days before severe thrombocytopenia detected Work up Imaging: Labs: CBC- hgb and WBC all normal historically Plts 2014- 2017- ~06/01- 11 06/03- 30 06/08- 49 07/08- 67 09/2017- 85 09/2017- 111 04/21/2018- 33 - given dex 40mg Daily 4 days 04/28/2018 - 111 (after dexamethasone) 09/04/18 - 103k HepC/ HIV- negative Treatment Course 06/17- observation 04/2018- Dexamethasone 40mg x 4 days X 1 with response Relapse Jul 2020 Dex 40 X 4 days 07/16- 07/12/19 Held rituxan until COVID vaccination complete IVIG 2gm/kg 12/15 &12/16 and 01/08 & 01/09/21 rituxan 100mg 01/16, 01/18, INTERIM HISTORY OF PRESENT ILLNESS Shanita returns in follow-up for her thrombocytopenia. She completed Dex 40 x 4 days in Apr 2018. Relapse Jul 2020. Received Dex 40 X 4 days 07/16- 07/12/19 with good response. Shanita returns to clinictoday in routine follow-up. It has been approximately 6 months since her last visit. Since that time, she denies changes to her baseline health. No fevers, chills, recurrent infections or intercurrent illnesses. No drenching sweats, unintentional weight loss, abnormal bleeding or excessive bruising. Her most recent therapy consisted of dexamethasone 40 mg x 4 days starting 02/19/2021 with 1 dose for of rituximab 100 mg given on 03/14/2021 for increased bruit bruising and gingival bleeding. CT of chest, abdomen and pelvis was obtained at that time to rule out underlying lymphoma and was negative. She also had a surgical consultation with Dr. Shah following this appointment as she wanted to learn more about the laparoscopic splenectomy. She is now fully COVID vaccinated. Covid spike antibody positive, tested 03/03/2021 at [facility]. In last year her plt have improved and have even been in the normal range occasionally. She had URI, presumable viral in Jul 2023 w/o drop in plt. Her plt have stabilized and she has done remarkably well off all therapy since January 2021. She has enjoyed a nice improvement in her plt count, unclear of reason, but great for her. Her of ALS in May 2023 - she is understandably lonely and struggling with the adjustment. . He with ACT 39 with Dignity. 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 50th anniversaryin 2019! In 2020 her was diagnosed with ALS in 2020 and passed in May 2023. He with ACT 39 with Dignity. Rare ETOH One daughter is teacher in [place]. Her daughter and son-in-law work for [employer] in [facility]. One son immigration lawyer in [place]. . 3 children total and 4 grandchildren total. Retired [employer]. FAMILY HISTORY: Mother: CAD, renal Father: dementia Sibs: 3 sisters Afib; CAD, DM Children: healthy No autoimmune disorders MEDICATIONS AND ALLERGIES- reviewed at this visit Medications 08/24/23 1052 Medication Sig Taking? valsartan (Diovan) 80 mg tablet Take 80 mg by mouth daily. Yes Azelaic Acid (FINACEA) 15 % Gel After skin is thoroughly washed and patted dry, gently but thoroughly massage a thin film of azelaic acid cream into the affected area twice daily, in the morning and evening. Yes ergocalciferol, vitamin D2, (VITAMIN D ORAL) Take 1,000 mg by mouth daily. Yes ubidecarenone (CO Q-10 ORAL) Take by mouth. PAST MEDICAL HISTORY- Patient Active Problem List Diagnosis Code Healthcare maintenance Z00.00 Nevus D22.9 Thrombocytopenia D69.6 Spinal stenosis at L4-L5 level M48.061 COMPREHENSIVE REVIEW OF SYSTEMS Besides what is mentioned in the HPI, all other systems are negative PHYSICAL EXAM BP 152/66 (Patient Position: Sitting) Pulse 74 Temp 36 ??C (96.8 ??F) (Temporal) Resp 16 Wt71.7 kg (158 lb) SpO2 100% BMI 28.00 kg/m?? Body surface area is 1.79 meters squared. GENERAL: Shanita Francisco appears well and is in no acute distress. ENT: Oral pharynx clear. EYES: JOHNNY NECK: Supple without adenopathy. AXILLARY: no adenopathy OTHER LYMPH: no adenopathy CARDIAC: Regular rate and rhythm without S3,S4 or murmurs. LUNGS: Clear to auscultation./percussion ABDOMEN: Soft and non-tender without hepatosplenomegaly or masses. EXTREMITIES: No cyanosis, clubbing, edema or calf tenderness. SKIN: No bruises or petechiae. NEUROLOGICAL: Alert and oriented to person, place and time. MUSCULOSKELETAL: No spinal or chest wall tenderness. LABORATORY EVALUATION: Labs obtained at [facility] in anticipation of this visit revealed the following; Recent Results (from the past 72 hour(s)) CBC (with Diff) Result Value Ref Range WBC 6.97 Hemoglobin 14.1 Hematocrit 43.3 Platelets 140 Neutr Abs (ANC) 4.08 RADIOGRAPHIC EVALUATION: No new images reviewed today 03/03/21 EXAMINATION: CT CHEST ABDOMEN PELVIS W CONTRAST (GENERIC) IMPRESSION Diffuse sclerosis and lucency throughout the bones, concerning for a myeloproliferative disorder. Consider correlation with bone scan and bone marrow biopsy. Normal spleen size. No enlarged lymph nodes. Dilated common bile duct of unknown etiology. Correlate with LFTs. Multiple gallstones with gallbladder wall thickening. Correlate with chronic cholecystitis. PATHOLOGY EVALUATION As above ASSESSMENT: Shanita Francisco is a 78 y.o. female whom I follow for thrombocytopenia. He was initiallydetected in June 2017, when her platelets were 11. This was roughly 1-2 weeks after receiving the flu shot, which has been the only potential trigger identified. In Apr 2018, her platelets fell to 31, without apparent trigger, and she was treated with Dex 40 x 4 days, with good response. Now status post IVIG and S/p weekly rituximab 100 mg flat dose X 4 doses (01/16/21-02/11/21). She is only getting temporary moderate response to IVIG, and no clear response to rituximab to date . Most recentDex 40mg X 4 days (02/19-02/22/21). When plt fall we can rescue her w/ IVIG. But that is temporizing. After that we need to consider Dex again with another agent added in such as rituximab. (See reference below) hopefully, with the addition of rituximab we would then be able to wean her off of the dexamethasone. If we are unable toget her off the steroids, then other options include splenectomy, eltrombopag, dapsone, Nplate, andcyclosporine combinations. The cyclosporine combinations are more challenging in [facility] as wecannot get levels easily. Shanita tolerates the Dex poorly w/ side effects. 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 More recently, her platelets seem to have stabilized. I suspect she may have had a response to the rituximab she had received. She has been getting rituximab 100 mg per dose, we could try higher dose in the future if necessary. She feels that she could tolerate an occasional 4-day course of dexamethasone (40 mg/day) if necessary, but does not feel that she could tolerate the dexamethasone every 3 to 4 weeks. Although she gets an adequate response to IVIG, she does not want to spend that much time in the infusion room. We also discussed the pros and cons of splenectomy. She would need splenectomy vaccines prior. She knows there is a 50-50 response/care with splenectomy, but she states she is reluctant to undergo surgery at her age. She had an appt with Dr Shah to follow this apptto learn more about splenectomy. Today Shanita is struggling w/ processing her 's passing and her own path forward. Her platelets are stable in the near normal range. She will continue with every other month labs 2 mos or if she develops a virus, or if she notices bleeding/bruising. Next labs due in 3 mos and prn. Next appt in January 2024. Ref: Journal of Hematology 2013 Florentino-Jacque. MM labs negative -these were checked given her skeletal findings on CT Diarrhea - started Sep 2020 w/ dex and never stopped. 3 BM every AM - increased flatus, stool for giardia and CDiff were negative Hepatitis - she did not have detectable Hep B titer and she needs booster but she never got a hepatitis vaccine booster. We will need to be sure she gets this at least 6 mos after completion of her rituximab. COVID - COVID vaccine X 2 completed mid Sep 2020. + spike ab & received her 3rd COVID vaccine. 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 Bone density - PCP is following and will order DEXA scan. Gallstones -findings were incidental on CT scan to rule out lymphoma. Patient is asymptomatic. No intervention necessary at this time. Patient aware. Social - discussion processing her 's passing and her experience with DWD and hospice. SW will see her today as well. Plan: IVIG 1 g/kg/day x 2 days OR dex 40mg X 4 days for plt less than 30k and fu appt. Cbc every 3 Months or if she develops virus or bleeding/bruising with RN tracking. Will also check CBC a couple weeks after virus just to be sure she does not develop delayed ITP after virus. RTC in January 2024 Hep B and hep C negative in July 2021. She no longer has adequate hep B antibodies, she will discuss the role of a booster vaccination with her PCP. I discussed all of the above with the patient and all of her questions were answered. Support and counseling given as appropriate. Shanita Francisco knows that she can call us any time with questions orconcerns. CARRIE HEREDIA MD Cc: Catracho Vernon MD documented in this encounter Plan of Treatment Upcoming Encounters Date Type Department Care Team (Late st Contact Info) Description 02/22/2024 1:00 PM EDT Office Visit Hematology/Oncology at [address] [phone] Carrie Heredia MD [facility] DR HEMATOLOGY/[place] [address] Oliva Mccabe, POLICY LOAN CALCULATOR [facility] DR HEMATOLOGY/[place] [address] 09/11/2024 1:00 PM EST Office Visit Dermatology at [facility] [address] [place] [id number] Lizeth Hallman MD [facility] [place] [address] documented as of this encounter Procedures Procedure Name Priority Date/Time Associated Diagnosis Comments CBC (WITH DIFF) Routine 08/23/2023 CBC (WITH DIFF) Routine 07/12/2023 documented in this encounter Results * CBC (with Diff) (08/23/2023) WBC 6.97 Hemoglobin 14.1 Hematocrit 43.3 Platelets 140 Neutr Abs (ANC) 4.08 Blood 08/23/2023 Historical Provider HEMATOLOGY ORDERA BLES * CBC (with Diff) (07/12/2023) WBC 7.48 Hemoglobin 12.8 Hematocrit 39.2 Platelets 183 Neutr Abs (ANC) 5.13 Blood 07/12/2023 Historical Provider HEMATOLOGY ORDERA BLES documented in this encounter Visit Diagnoses Diagnosis Thrombocytopenia Thrombocytopenia, unspecified documented in this encounter Care Teams Laborer Drying Department Relationship Specialty Start Date End Date Catracho Vernon MD [facility] [address] PCP - General Family Medicine 04/21/18 documented as of this encounter
--- OUTSIDE RECORDS SUMMARY | 2024-02-21 01:28 | XMS_ITS | Encounter Summary ---
Author Organization [facility] Address [facility] [place] [place] [address] Care Team Providers Care Reference Archivist Name Role Phone Catracho Vernon MD Primary Care Provider [phone] Encounter Details Date Type Department Care Team ([facility] st Contact Info) Description 05/20/2022 11:20 AM EDT Office Visit Dermatology at [facility] [address] [place] [address] Nicole Whitt MD [facility] [place] [address] Rosacea; Lentigines; Dermatofibroma; Xerosis cutis; Dermatitis; Family history of melanoma; SK (seborrheic keratosis) Social History Tobacco Use Types Packs/Day Years Used Date Smoking Tobacco: Never Smokeless Tobacco: Never Sex and Gender Information Value Date Recorded Sex Assigned at Not on file Gender Identity Female 08/21/2020 5:05 PM EST Sexual Orientation Not on file documented as of this encounter Patient Instructions * Patient Instructions* Macy Stokes MA - 05/20/2022 11:[address] Wheeler's LO. C.A.L (Low Contact Allergen) Skin Diet Also known as Dr. Wheeler's Favorite Products for the Skin This Product list eliminates most commonly identified contact allergens (chemicals causing contact skin allergy) in patients with dermatitis, including: Fragrances/Formaldehyde releasing preservatives: quaternium-15, imidazolidinyl urea, diazolidinyl urea, DMDM hydantoin, bronopol/ Methylchloroisothiazolinone/methylisothiazolinone (MCI/WI)/Methyldibromo glutaronitrile/lanolin/Cocamidopropyl betaine/Oxybenzone (see next page for further explanation. SOAP Aveeno Moisturizing Bar with Natural Colloidal Oatmeal, Fragrance Free, John & John www.aveno.Oree $ Vanicream Cleansing Bar, homedeco2u Inc. www.InstantQuest $ Avoid liquid cleansers. Cerave Hydrating Cleanser, Avancert. www.Svaya Nanotechnologies.Oree $$$ Cetaphil Gentle Skin Cleanser for all skin types, SolarCity www.SureFire.Oree $$ Free and Clear Liquid Cleanser, homedeco2u Inc. www.InstantQuest $$ SHAMPOO Free and Clear Shampoo, homedeco2u Inc. www.InstantQuest HAIR CONDITIONER DHS Conditioning Rinse, Cards Off & Tinychat. www.LIFE INTERACTION.Oree $$ Exederm Conditioner, opinions.h. www.exederm.Oree $$$ Free and Clear Conditioner, homedeco2u Inc. www.InstantQuest $$ HAIR STYLING PRODUCTS (SPRAY/GEL) Free and Clear Hair [place] (Soft Hold and Firm Hold), homedeco2u Inc. www.InstantQuest $$$ Free and Clear Hair Styling Gel, homedeco2u Inc. www.InstantQuest $$ MOISTURIZER-OINTMENT Hydrolatum, mValent Inc. www.hydrolatum.Oree $$ Theraplex Emollient, The TherapPhosImmune, Forward Financial Technologies. www.theraplex.Oree $$$$$ Vaseline 100% Pure Petroleum Jelly, Unilever www.unilever.com $ MOSTURIZING CREAM Aveeno Advanced Care, Moisturizing Cream with Soothing Oat Essence and Ceramides, John & John www.aveeno.Oree $$ Cerave Cream, Avancert. www.Svaya Nanotechnologies.Oree $$$ Cetaphil Therapeutic Hand Cream, Galderma www.galderma.Oree $$ Eucerin Plus Intensive Repair hand Cr??me, Lizhimt. edgecumbe medical centerFlatFrog Laboratories [facility]. www.Modavanti.com $$ Neutrogena Barbadian Formula Hand Cream, Fragrance Free, John & John www.neutrogena.Oree $ Nutraplus Cream (urea 10%), Avancert. www.Shoutlet $$$$$ Vanicream Skin Cream, homedeco2u Inc. www.import.io.Oree $$$ MOISTURIZER-LOTION [place]venno Daily Moisturizing Lotion, John & John www.avBetterifico.Oree $$ Cerave Lotion, Avancert. www.Svaya Nanotechnologies.Oree $$$ Curel Continuous Comfort Fragrance Free Moisture Lotion, Jakob Brands www.curel.com $$ Lubriderm Daily Moisture Lotion, Fragrance-Free, John & John Lubriderm Intense Skin Repair, Body Lotion with Itch Relief, John & John www.lubriderm.com $$ Vanicream Lite Lotion, homedeco2u Inc. www.import.io.Oree $$ Vanicream Vitec Vitamin E. Lotion, homedeco2u Inc. www.import.io.Oree $$$ SUNSCREEN Anthelios, La Rafa-Posay www.Joseph-Valeriaay. $$$$$ Cetaphil Daily Facial Moisturizer SPF 15, Galderma www.galderma.com $$$ Elta Block SPF 32 Daily Wear, Stormpath. www.elta.net $$ Elta Block SPF 30 Thorofare, Stormpath. www.elta.net $$ Eucerin Everyday Protection Body Lotion SPF 15, Pikanote www.Quantuviserinus.Oree $$ Vanicream Sunscreen (SPF 30, SPF 35 Sport, and SPF 60), Imanis Life Sciences. www.import.io.Oree $$ VMV Hypoallergenics [place], VMV Hypoallergenics www.Equity Investors Groupv5gigpoallergenics.com $$$$ DEODORANT Almay Hypoallergenic Fragrance Free (Roll-on, Clear Gel, and Solid) Anti- Perspirant/Deoderant, Revlon www.almay.Oree $ Certain Dri Antiperspirant Roll-On for Excessive Perspiration, Numark www.certaindri.Oree $$ VMV Hypoallergenics Essence of Skin-Saving Body and Bath Anti-Perspirant, VMV Hypoallergenics www.vmv5gigpoallergenics.com $$$$ TOOTHPASTE Flavor Free Toothpaste (Original Formula and 2009 Formula RX), available by prescription only, [facility] www.[facility].org/specialty-pharmacy Jaiden's of Main Natural (Fluoride-Free and Anticavity Fluoride) Toothpaste for Children, Ilana Santos, [facility]'s [facility] [place] www.Media Li²ght Entertainment.Oree $ VMV Hypoallergenics Essence of Skin-Saving, Simple-Gentle Toothpaste, VMV Hypoallergenics www.Tut Systemspoallergenics.Oree $$$ LIP BALM Myranda Amezcua Line Fix Lip Repair, SoloStocks www.salPerminova.Oree $$ Vanicream Lip Protectant SPF 30, homedeco2u, Inc. www.import.io.Oree $ HAND FORM SETTER/DRIVER Hillary Original Instant Hand Auto Parts Counter Person Fragrance-Free, B4 Brands www.a6xtbupc.Oree $ [place] Foaming Instant Hand Auto Parts Counter Person, B4 Brands www.h5hohbni.com $ SHAVING CREAM/GEL Aveeno Therapeutic Shave Gel, Angel Eye Camera Systems www.aveeno.com $ Vanicream Shave Cream, homedeco2u, Inc. www.import.io.Oree $ BABY WIPES JustPark [facility] [place], [facility] Chlorine Free Baby Wipes, The Duable Chineseest24tidy Group, Inc. www.GreenIQ.Oree $ Chlorine Free Baby Wipes, Seventh Generation, www.Dorn Technology GroupgeneFunGoPlay.Oree $ LAUNDRY DETERGENT All Free Clear, Corepair www.all-laundry.Oree $$ Approximate Retail Prices: Below $5 = $ $5 to $10 = $$ $11 to $15 = $$$ $16 to $20 = $$$$ >$21 = $$$$$ NOTES ON THESE SKIN CARE PRODUCTS These are a few notes which can be very helpful to people struggling with dermatitis (or eczema): The hypoallergenic skin product diet on this handout outlines products which I have included because they do not contain any of the most common ingredients that can be a cause of skin allergy. The list is small and limited. The list is based on my experience interviewing and testing many allergic patients and time reviewing labels of products and learning about the importance of allergy. These allergens are well documented and reported in the medical literature as the most common sources of contact type allergy. Some of the ingredients eliminated are truly uncommon sources of allergy, though among patients with dermatitis or eczema, they are among the chemicals to which a person may be allergic. This skin diet does not eliminate all contact allergens, but it does a good job of eliminatingthe ones most commonly identified. Just because a product like a lotion or a cream states on the label hypoallergenic it does not mean that such a product can't cause allergy. Even some ingredients considered hypoallergenic (or lessapt to cause allergy) by the welder/fabricator will in some individuals, be a source of allergy. Even using a product which does contain an ingredient to which you are unknowingly allergic can worsen or aggravate your skin problem, and keep it going another several weeks. Therefore, only STRICT adherence to the SKIN DIET, using only the products on the list if needed, will be likely to help r esolve your problem if allergy is a cause or important aggravating factor. Testing for allergy is possible with patch testing. Patch testing may be recommended by your doctorto further evaluate the cause of your rash. For these recommendations to be successful you should: 1. Use only those products on the list that you feel you need, unless otherwise advised y your doctor. 2. Limit your use of skin products. If a moisturizer is needed, the thicker on is better. The most effective moisturizer feels greasy and is messy. If this is unacceptable, choose a product recommended in the cream or lotion category. Some people find using a greasy product at night, and a lotion or cream during the day is more acceptable. 3. If you are prescribed a medication, use your medication as advised by your doctor. Rub it in well. It is best to apply it at least one time a day after your skin has absorbed some water from bathing. Pat dry after bath or shower and apply your medication. 4.Follow-up with you doctor if your ski problem fails to resolve or improve. [Disclosure: Dr. Wheeler has no financial interest in any of the products mentioned on this list]. Created by Amelia Wheeler M.D. and Jacqui Mcgraw on 08/07/2009 documented in this encounter Progress Notes * Nicole Whitt MD - 05/20/2022 11:20 AM EDT Images from the original note were not included. DEPARTMENT OF DERMATOLOGY Medical Dermatology Clinic Provider: Nicole Whitt MD Patient's preferred name Shanita Preferred contact method for results []Phone []myD-H []Letter Detailed phone message OK? Are there any other people with whom we may discuss your care? 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 Patient returns to clinic today for a dull skin exam with the following concerns: -Patient states she has a lot of itchy around her neck, breasts area, and back. She states it is very rough and sensitive to the itching. She states within the last few years she has red itchy lesions on the face and arms during sun exposure. -She states she may want to ask for another prescription of Azelaic acid for her rosacea. Denies new hair loss, raynaud's Last visit at Dermatology: 11/13/2020 Last visit with this provider: Visit date not found Medications: Reviewed in eD-H Allergies: Reviewed in eD-H Skin Examination: Full skin examination: Patient asked to undress to their comfort level. Verbalized that the provider???s preference is that the patient remove all clothing and that the provider will not examine areas patient elects to keep covered. Patient elects to keep underwear on and have the following examined: scalp, hair, face, ears, neck, chest, axillae, abdomen, back, and upper and lower extremities. Genitalia and buttocks were not examined. Assessment/Plan #. Family History of Melanoma - Discussed with patient that given the increased risk factor of their positive family history for malignant melanoma, I recommended that they have a full skin exam every year. - Recommended self-monitoring of moles. - Reviewed ABCD of melanoma recognition. # Papulopustular Rosacea - on the bilateral cheeks and nose there are trace pustules in background of erythema - Skin findings and treatment options reviewed - Discussed trigger avoidance (heat, spicy foods, alcoholic beverages, sun exposure) - [place] decision to restart Rx: azelaic acid 15% cream: Apply topically BID to affected areas on face. Patient instructed that insurance may not cover medication and to call our office for alternative if it is too expensive - Start Rx: Metronidazole cream 0.75%: Apply topically to the face twice daily - Discussed gentle skin care and avoidance of harsh skin care products. Recommended Cetaphil non soap cleanser, or VaniCream cleanser. #. Xerosis - Diffuse xerosis. - Recommended applying a bland moisturizer (such as Amlactin rapid relief or CeraVe cream) daily immediately after bathing. -Sensitive skin care handout given today #. Dermatofibroma - Firm papule, centrally raised and sclerotic, with peripheral hyperpigmentation and dimpling with lateral pressure on the left upper arm. - Discussed that these are benign fibrous (scar-like) lesions. No treatment necessary. #. Dermatitis- Dull pink papules on the upper trunk and extremities DDx: [place]'s Disease vs papular eczema vs PLE - Start Rx: Triamcinolone Cream: Apply topically to the effected areas of the chest and back as needed for itching - Dr. Wheeler's Hypoallergenic hand out given today #. Seborrheic Keratoses - Stuck on, waxy papules on the trunk and extremities. - Discussed benign nature of lesions and provided reassurance. No treatment necessary at this time. #. Lentigines - Scattered light-brown, evenly pigmented, well-demarcated macules on sun-exposed areas of the trunk and extremities. - No worrisome pigmented lesions. Discussed benign nature of lesions and provided reassurance. Willcontinue to monitor. Other: ??? Sun protection discussed (protective clothing and SPF30+ broad-spectrum sunscreen) RTC: 1 year for FSE []Note routed to laboratory secretary [x]Recall placed in scheduling system []Appointment scheduled at checkout Scribe attestation: Macy Stokes MA has performed the documentation for this encounter in the presence of and acting as a scribe for Nicole Whitt MD. I performed the above scribed service and agree with the accuracy of the documentation in this encounter. Reviewed and signed by: Nicole Whitt MD Dermatology [facility] Patient seen and evaluated with staff director funds development: Lizeth Beltran MD Dermatology [facility] * Lizeth Beltran MD - 05/20/2022 11:20 AM EDT I directly supervised the resident during this office visit. The resident physician presented the history and physical exam to me. I then saw and examined this patient with the resident. We reviewed the history and pertinent details and I confirmed the physical exam findings. I agree with the details of the history and physical exam as documented in the resident physician's note. Lizeth Beltran MD Staff Physician [facility] Dermatology documented in this encounter Plan of Treatment Upcoming Encounters Date Type Department Care Team (Late st Contact Info) Description 02/22/2024 1:00 PM EDT Office Visit Hematology/Oncology at [address] [id number] Carrie Bruno MD [facility] HEMATOLOGY/[place] [address] Oliva Mccabe APRN [facility] HEMATOLOGY/[place] [address] 09/11/2024 1:00 PM EST Office Visit Dermatology at [facility] [address] [place] [address] Lizeth Hallman MD [facility] [place] [address] documented as of this encounter Visit Diagnoses Diagnosis Rosacea Lentigines Other dyschromia Dermatofibroma Benign neoplasm of skin, site unspecified Xerosis cutis Other specified disease of sebaceous glands Dermatitis Contact dermatitis and other eczema, due to unspecified cause Family history of melanoma Family history of other specified malignant neoplasm SK (seborrheic keratosis) Other seborrheic keratosis documented in this encounter Care Teams Reference Archivist Relationship Specialty Start Date End Date Catracho Vernon MD [address] [place] [address] [place] [address] PCP - General Family Medicine 04/21/18 documented as of this encounter
--- OUTSIDE RECORDS SUMMARY | 2024-02-21 01:28 | XMS_ITS | Referral Summary ---
Author Organization [facility] Address [address] [place] [address] Care Team Providers Care Livestock Ranch Hand Name Role Phone Catracho Pink MD Primary Care Provider [phone] Social History Tobacco Use Types Packs/Day Years Used Date Smoking Tobacco: Never Assessed Sex and Gender Information Value Date Recorded Sex Assigned at Not on file Gender Identity Not on file Sexual Orientation Not on file Plan of Treatment Not on file Care Teams Livestock Ranch Hand Relationship Specialty Start Date End Date Catracho Pink MD PCP - General 06/22/15
--- OUTSIDE RECORDS SUMMARY | 2024-02-21 01:28 | XMS_ITS | Encounter Summary ---
Author Organization [facility] Address [facility] [place] [address] Care Team Providers Care Kiln Stoker Name Role Phone Catracho Vernon MD Primary Care Provider [phone] Encounter Details Date Type Department Care Team (Late st Contact Info) Description 07/15/2021 1:00 PM EST Office Visit Hematology/Oncology at [address] [phone] Carrie Heredia MD [facility] [address] HEMATOLOGY/[place] [address] Thrombocytopenia Social History Tobacco Use Types Packs/Day Years Used Date Smoking Tobacco: Never Smokeless Tobacco: Never Sex and Gender Information Value Date Recorded Sex Assigned at Not on file Gender Identity Female 08/21/2020 5:05 PM EST Sexual Orientation Not on file documented as of this encounter Last Filed Vital Signs Vital Sign Reading Time Taken Comments Blood Pressure 144/78 07/15/2021 1:04 PM EST Pulse 60 07/15/2021 1:04 PM EST Temperature 35.8 ??C (96.4 ??F) 07/15/2021 1:04 PM ES T Respiratory Rate 16 07/15/2021 1:04 PM EST Oxygen Saturation 100% 07/15/2021 1:04 PM EST Inhaled Oxygen Concentration - - Weight 70.3 kg (155 lb) 07/15/2021 1:04 PM EST Height 160 cm (5' 2.99) 07/15/2021 1:04 PM EST Body Mass Index 27.46 07/15/2021 1:04 PM EST documented in this encounter Progress Notes * Carrie Heredia MD - 07/15/2021 1:00 PM EST OUTPATIENT HEMATOLOGY CONSULTATION HISTORY PRESENT ILLNESS This patient is a 75 y.o. female presenting for evaluation of thrombocytopenia, [...] count was drawn. Relevant PMHx/ risk factors: ?? Flu shot in the days before severe thrombocytopenia detected Work up Imaging: ?? Labs: ?? CBC- hgb and WBC all normal historically ?? Plts ?? 2014- ?? 2017- ?? ~06/01- ?? 06/03- ?? 06/08- ?? 07/08- ?? 09/2017- ?? 09/2017- 111 ?? 04/21/2018- 33 - given dex 40mg Daily 4 days ?? 04/28/2018 - 111 (after dexamethasone) ?? 09/04/18 - 103k ?? HepC/ HIV- negative Treatment Course ?? 06/17- observation ?? 04/2018- Dexamethasone 40mg x 4 days X 1 with response ?? Relapse Jul 2020 Dex 40 X 4 days 07/16- 07/12/19 ?? Held rituxan until COVID vaccination complete ?? IVIG 2gm/kg 12/15 &12/16 and 01/08 & 01/09 ?? rituxan 100mg 01/16, 01/18, 02/03 INTERIM HISTORY Torrey returns in follow-up for her thrombocytopenia. She completed Dex 40 x 4 days in Apr 2018. Relapse Jul 2020 Dex 40 X 4 days 07/16- 07/12/19 with good response. Here for ongoing f/u. Over the last 2 months thrombocytopenia has worsened. She is required IVIG with only a moderate response. She has now received 3 of the plan for weekly treatments of rituximab (interrupted due to her vacation plans). With persistent thrombocytopenia. Some gum bleeding w/ waterpick on gums and no epistaxis. No dark stools. No unanticipated bruising. Platelets were dropping prior to her departure for [facility], so she took dexamethasone 40 mg x 4 days starting 02/19/2021. Dose for of rituximab 100 mg given on 03/14/2021. CT of chest abdomen and pelvis (to rule out underlying lymphoma) negative. . She also has a surgical consultation with Dr. Shah following this appointment, as she wanted to learn more about the laparoscopic splenectomy. She has not yet received splenectomy vaccines. She is now fully COVID vaccinated. Covid spike antibody positive, tested 03/03/2021 at [facility].. Received third vaccine/booster as well. Her plt have stabilized and she has done remarkably well off all therapy since January. I am presumingthis is a response to her rituximab. No bleeding or bruising. Her has been diagnosed with ALS but still doing well. Primarily drop foot. He remains positive and committed to managing the diagnosis. 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 50th wedding anniversary in 2019! In 2020 her was diagnosed with ALS. Rare ETOH One daughter is teacher in [place]. Her daughter and son-in-law work for [employer] in [facility]. One son candy packer in [place]. . 3 children total and 4 grandchildren total. Retired [employer]. FAMILY HISTORY: Mother: CAD, renal Father: dementia Sibs: 3 sisters Afib; CAD, DM Children: healthy No autoimmune disorders MEDICATIONS AND ALLERGIES- reviewed at this visit Medications 07/15/21 1307 Medication Sig Taking? hydroCHLOROthiazide (Hydrodiuril) 12.5 mg Tablet Take 12.5 mg by mouth daily. Yes TURMERIC ORAL Take 1 capsule by mouth daily. Yes ergocalciferol, vitamin D2, (VITAMIN D ORAL) Take 1,000 mg by mouth daily. Yes dexamethasone (Decadron) 4 mg Tablet Dex 40mg daily X 4 days and repeat q 3 weeks Patient not taking: Reported on 11/26/2020 ubidecarenone (CO Q-10 ORAL) Take by mouth. PAST MEDICAL HISTORY- reviewed Patient Active Problem List Diagnosis Code ??? Healthcare maintenance Z00.00 ??? Nevus D22.9 ??? Thrombocytopenia D69.6 ??? Spinal stenosis at L4-L5 level M48.061 COMPREHENSIVE REVIEW OF SYSTEMS Besides what is mentioned in the HPI, all other systems are negative PHYSICAL EXAM BP 144/78 (Patient Position: Sitting) Pulse 60 Temp 35.8 ??C (96.4 ??F) (Temporal) Resp 16 Ht 160 cm (5' 2.99) Wt 70.3 kg (155 lb) SpO2 100% BMI 27.46 kg/m?? Body surface area is 1.77 meters squared. GENERAL: Torrey Conteh appears well and is in no acute [...] No spinal or chest wall tenderness. LABORATORY EVALUATION No results found for this or any previous visit (from the past 24 hour(s)). 07/28/20 Hep B and Hep C negative Results for TORREY CONTEH ( ) as of 07/15/2021 13:15 Ref. Range 04/14/2021 00:00 04/27/2021 00:00 05/18/2021 00:00 06/08/2021 00:00 07/06/2021 00:00 WBC Unknown 5.52 4.68 5.82 9.01 6.25 Hemoglobin Unknown 14.3 13.9 14.3 14.0 14.1 Hematocrit Unknown 43.4 42.4 43.0 42.2 43.1 MCV Unknown 91.9 91.6 89.8 90.9 Platelets Unknown 110 129 114 131 124 Neutr Abs (ANC) Unknown 3.57 2.79 3.47 6.46 4.31 RADIOGRAPHIC EVALUATION 03/03/21 EXAMINATION: CT CHEST ABDOMEN PELVIS W CONTRAST (GENERIC) IMPRESSION ?? Diffuse sclerosis and lucency throughout the bones, concerning for a myeloproliferative disorder. Consider correlation with bone scan and bone marrow biopsy. Normal spleen size. No enlarged lymph nodes. Dilated common bile duct of unknown etiology. Correlate with LFTs. Multiple gallstones with gallbladder wall thickening. Correlate with chronic cholecystitis. PATHOLOGY EVALUATION As above ASSESSMENT: Torrey Conteh is a 75 y.o. female whom I follow for thrombocytopenia. He was initiallydetected in June 2017, when her platelets were 11. This was roughly 1-2 weeks after receiving the flu shot, which has been the only potential trigger identified. In Apr 2018, her platelets fell to 31, without apparent trigger, and she was treated with Dex 40 x 4 days, with good response. Ms Conteh is a delightful 75 y.o. 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 Dr. Didier Jade treated her with dexamethasone 40 mg x 4 days in April2018. Has had chronic ITP since 2019. Now status post IVIG and S/p weekly rituximab 100 mg flat dose X 4 doses (01/16/21-02/11/21). She is only getting temporary moderate response to IVIG, and no clear response to rituximab to date . It reg bit early to expect rituximab response - responses may take up to 3 mos (May 2021 timeframe). Herplatelets have dropped despite these interventions. Most recent IVIG was on 01/16 and 01/17. Most recent Dex 40mg X 4 days (02/19-02/22/21). When plt [...] The cyclosporine combinations are more challenging in [facility] as wecannot get levels easily. Torrey tolerates the Dex poorly w/ SFX. Torrey has done a lot of research and is well-informed on ITP. More recently, her platelets seem to have stabilized. I suspect she may have had a response to therituximab she had received.. She has been getting rituximab 100 mg per dose, we could try higher dose in the future if necessary. She feels that she could tolerate an occasional 4-day course of dexamethasone (40 mg/day) if necessary, but does not feel that she could tolerate the dexamethasone every3 to 4 weeks. Although she gets an adequate response to IVIG, she does not want to spend that much time in the infusion room. We also discussed the pros and cons of splenectomy. She would need splenec dmitriy vaccines prior. She knows there is a 50-50 response/care with splenectomy, but she states she is reluctant to undergo surgery at her age. She had an appt with Dr Shah to follow this appt to learn more about splenectomy. Her last treatment for ITP was 4 days of dexamethasone which she took in January prior to her departure for her family vacation on [facility]. She ultimately canceled her scheduled bone marrow biopsy. I had recommended the BMBX in order to complete the work-up for her ITP, and also because of sclerotic bone lesion seen on her CAT scan. Today Torrey is doing beautifully. Her platelets have been in the 120-130K Range which we are assuming is a delayed response to her rituximab. We will continue to follow her w/ monthly CBC and next appt in 6 mos. At the end of our appointment, Torrey mentioned that she had seen Dr. Mccall twice, a well-known platelet expert, at [facility]. . She had assumed I had seen his notes. Unfortunately with care everywhere I need to know to go into look at the notes, they do not come to an in basket for me. I did find this note notes and in general they seem to agree with what were doing. I will review them in detail. I appreciate his expertise and involvement. ?? Ref: Journal of Hematology 2013 Chadd-Jacque. Diarrhea - started w/ dex and never stopped. Started in 2020. 3 BM every AM - increased flatus, [...] spike ab & received her 3rd COVID vaccine HTN - managed by PCP. Bone density - PCP is following and will order DEXA scan. Gallstones -findings were incidental on CT scan to rule out lymphoma. See above. Patient is asymptomatic. No intervention necessary at this time. Patient aware. Plan: ?? IVIG 1 g/kg/day x 2 days OR dex 40mg X 4 days for plt less than 30k and fu appt. ?? Cbc q 4 weeks with RN tracking - first week of every month ?? MM labs negative -these were checked given her skeletal findings on CT ?? Hep B and hep C negative in July 2021. She no longer has adequate hep B antibodies, she willdiscuss the role of a booster vaccination with her PCP. I discussed all of the above with the patient and all of her questions were answered. Support and counseling given as appropriate. Torrey Conteh knows that she can call us any time with questions orconcerns. This note was written or modified using [employer] voice recognition software. The final note was screened for mistakes. Please excuse any remaining errors. CARRIE HEREDIA MD documented in this encounter Plan of Treatment Upcoming Encounters Date Type Department Care Team (Late st Contact Info) Description 02/22/2024 1:00 PM EDT Office Visit Hematology/Oncology at [address] [phone] Carrie Heredia MD [facility] [address] HEMATOLOGY/[place] [address] Oliva Mccabe, ABDULLAHI [facility] HEMATOLOGY/[place] [address] 09/11/2024 1:00 PM EST Office Visit Dermatology at [facility] [address] [place] [address] Lizeth Hallman MD [facility] [address] [place] [address] documented as of this encounter Visit Diagnoses Diagnosis Thrombocytopenia Thrombocytopenia, unspecified documented in this encounter Care Teams Kiln Stoker Relationship Specialty Start Date End Date Catracho Vernon MD [address] [place] [address] PCP - General Family Medicine 04/21/18 documented as of this encounter
--- OUTSIDE RECORDS SUMMARY | 2024-02-21 01:28 | XMS_ITS | Encounter Summary ---
Author Organization [facility] [place] [address] Care Team Providers Care Nut Former Name Role Phone Catracho Vernon MD Primary Care Provider [phone] Reason for Visit * Reason Onset Date Comments Labs Only 07/07/2022 Lab Tracking Encounter Details Date Type Department Care Team (Late st Contact Info) Description 07/07/2022 Telephone Hematology/Oncology at [address] [phone] Bird Sandra RN Labs Only (Lab Tracking) Social History Tobacco Use Types Packs/Day Years Used Date Smoking Tobacco: Never Smokeless Tobacco: Never Sex and Gender Information Value Date Recorded Sex Assigned at Not on file Gender Identity Female 08/21/2020 5:05 PM EST Sexual Orientation Not on file documented as of this encounter Miscellaneous Notes * Addendum Note - Bird Sandra RN - 07/07/2022 9:03 AM ESTAddended by: BIRD SANDRA on: 07/07/2022 09:03 AM Modules accepted: Orders * Telephone Encounter - Bird Sandra RN - 07/07/2022 8:56 AM EST LAB TRACKING Shanita Francisco : 1945 DIAGNOSIS: ITP LABS ORDERED: cbc/diff every 8 weeks at [facility] MEDICATIONS: 07/16/20- dexamethasone 40 IV day one then daily for 3 days 08/05/20-08/08/20 dexamethasone 40 mg po x4 days IVIG- 12/15,12/16,01/08, 01/09 Rituxan to start 01/16- 4 doses given Pred 40 mg x4 days 02/19/21-02/22/21 Assessment/Plan: Labs sent to provider for review. Continue CBC diff every 2 months. Next due 09/07/22. Pt is in agreement with plan. She will call sooner if any changes or concerns. 03/01/22 00:00 05/03/22 00:00 07/05/22 00:00 WBC 5.37 (E) 5.70 (E) 5.57 (E) Hemoglobin 14.1 (E) 14.1 (E) 13.8 (E) Hematocrit 43.2 (E) 42.6 (E) 41.4 (E) Platelets 142 (E) 126 (E) 122 (E) Neutr Abs (ANC) 3.31 (E) 3.63 (E) 3.37 (E) Creatinine 0.9 (E) (E): External lab result documented in this encounter Plan of Treatment Upcoming Encounters Date Type Department Care Team (Late st Contact Info) Description 02/22/2024 1:00 PM EDT Office Visit Hematology/Oncology at [address] [phone] Carrie Bruno MD [facility] DR HEMATOLOGY/[place] [address] Oliva Mccabe APRN [facility] HEMATOLOGY/[place] [address] 09/11/2024 1:00 PM EST Office Visit Dermatology at [facility] [address] [place] [address] Lizeth Hallman MD [facility] [address] [place] [address] documented as of this encounter Procedures Procedure Name Priority Date/Time Associated Diagnosis Comments CBC (WITH DIFF) Routine 07/05/2022 COMPREHENSIVE METABOLIC PANEL (NON-FASTING) Routine 07/05/2022 documented in this encounter Results * CBC (with Diff) (07/05/2022) WBC 5.57 Hemoglobin 13.8 Hematocrit 41.4 Platelets 122 Neutr Abs (ANC) 3.37 Blood Historical Provider HEMATOLOGY ORDERA BLES * Comprehensive metabolic panel (non-fasting) (07/05/2022) Creatinine 0.9 Blood Historical Provider CHEMISTRY ORDERAB LES documented in this encounter Visit Diagnoses Diagnosis Thrombocytopenia Thrombocytopenia, unspecified documented in this encounter Care Teams Nut Former Relationship Specialty Start Date End Date Catracho Vernon MD [address] [place] [address] PCP - General Family Medicine 04/21/18 documented as of this encounter
--- OUTSIDE RECORDS SUMMARY | 2024-02-21 01:28 | XMS_ITS | Clinical Summary ---
Author Organization [facility] Address [facility] [place] [address] Care Team Providers Care General Production Manager Name Role Phone Catracho Vernon MD Primary Care Provider [phone] Allergies No known active allergies Medications Medication Sig Dispensed Refills Start Date End Date Status ergocalciferol, vitamin D2, (VITAMIN D ORAL) Take 1,000 mg by mouth daily. Active ubidecarenone (CO Q-10 ORAL) Take by mouth. Active Azelaic Acid (FINACEA) 15 % GelIndications:Rosac ea After skin is thoroughly washed and patted dry, gently but thoroughly massage a thin film of azelaic acid cream into the affected area twice daily, in the morning and evening. 50 g 5 05/20/2022 Active valsartan (Diovan) 80 mg tablet Take 80 mg by mouth daily. Active Active Problems Problem Noted Date Diagnosed Date Spinal stenosis at L4-L5 level 09/11/2018 Thrombocytopenia 07/08/2017 Overview (09/11/2018): Acute on chronic ITP Nevus 04/29/2015 Healthcare maintenance 06/30/2012 Encounters Date Type Department Care Team Description 11/23/2023 Telephone Hematology/Oncology at [address] [phone] Bird Kohli RN Labs Only (Lab Tracking ) from Last 3 Months Immunizations Name Administration Dates Next Due Hepatitis A, Unspecified Formulation 06/30/2012 TD Adult 08/01/2002 Tdap 06/30/2012 Yellow Fever Vaccine 06/30/2012 Social History Tobacco Use Types Packs/Day Years Used Date Smoking Tobacco: Never Smokeless Tobacco: Never Sex and Gender Information Value Date Recorded Sex Assigned at Not on file Gender Identity Female 08/21/2020 5:05 PM EST Sexual Orientation Not on file Last Filed Vital Signs Vital Sign Reading Time Taken Comments Blood Pressure 152/66 08/24/2023 10:36 AM EST Pulse 74 08/24/2023 10:36 AM EST Temperature 36 ??C (96.8 ??F) 08/24/2023 10:36 AM EST Respiratory Rate 16 08/24/2023 10:36 AM EST Oxygen Saturation 100% 08/24/2023 10:36 AM EST Inhaled Oxygen Concentration - - Weight 71.7 kg (158 lb) 08/24/2023 10:36 AM EST Height 160 cm (5' 2.99) 12/15/2022 11:03 AM EDT Body Mass Index 28 12/15/2022 11:03 AM EDT Plan of Treatment Upcoming Encounters Date Type Department Care Team (Late st Contact Info) Description 02/22/2024 1:00 PM EDT Office Visit Hematology/Oncology at [address] [phone] Carrie Bruno MD [facility] DR HEMATOLOGY/[place] [address] Oliva Mccabe, FILTER TANK OPERATOR [facility] DR HEMATOLOGY/[place] [address] 09/11/2024 1:00 PM EST Office Visit Dermatology at [facility] [address] [place] [phone] Lizeth Hallman MD [facility] [address] [place] [address] Health Maintenance Due Date Last Done Comments Hepatitis C Screening 1961 Zoster vaccine (1 of 2) 1993 Advance Directive 1998 Bone Density Scan 2008 Pneumoccocal Vaccine: 65+ (1 of 1 - PCV) 2008 Tetanus vaccine 06/30/2022 06/30/2012, 08/01/2002 Covid-19 Vaccine (1 - 2022- season) 2023 Influenza (Flu) vaccine (1 o f 1 - Influenza standard series) 04/01/2024 Tdap adult Completed 06/30/2012 Procedures Procedure Name Priority Date/Time Associated Diagnosis Comments LAB SCAN 11/23/2023 12:00 AM EDT CBC (WITH DIFF) Routine 11/22/2023 COMPREHENSIVE METABOLIC PANEL (NON-FASTING) Routine 11/22/2023 from Last 3 Months Results * SCAN DOC: LAB (11/23/2023 12:00 AM EDT) Narrative 11/23/2023 12:00 AM EDT Ordered by an unspecified provider. Scanning Provider MEDIA MGR SCAN EXT O RDR/RSLT * CBC (with Diff) (11/22/2023) WBC 6.99 RBC 4.89 Hemoglobin 14.7 Hematocrit 45.1 Platelets 150 Neutr Abs (ANC) 4.57 Blood Historical Provider HEMATOLOGY ORDERA BLES * Comprehensive metabolic panel (non-fasting) (11/22/2023) Creatinine 1.0 Calcium 10.2 Blood Historical Provider CHEMISTRY ORDERAB LES from Last 3 Months Care Teams General Production Manager Relationship Specialty Start Date End Date Catracho Vernon MD [address] [place] [address] PCP - General Family Medicine 04/21/18
--- OUTSIDE RECORDS SUMMARY | 2024-02-21 01:28 | XMS_ITS | Encounter Summary ---
Author Organization [facility] [place] [address] Care Team Providers Care Home Energy Rater Name Role Phone Catracho Vernon MD Primary Care Provider [phone] Reason for Visit * Reason Onset Date Comments Labs Only 11/30/2022 Lab Tracking Encounter Details Date Type Department Care Team (Late st Contact Info) Description 11/30/2022 Telephone Hematology/Oncology at [address] [phone] Bird Kohli, RN Labs Only (Lab Tracking ) Social History Tobacco Use Types Packs/Day Years Used Date Smoking Tobacco: Never Smokeless Tobacco: Never Sex and Gender Information Value Date Recorded Sex Assigned at Not on file Gender Identity Female 08/21/2020 5:05 PM EST Sexual Orientation Not on file documented as of this encounter Miscellaneous Notes * Telephone Encounter - Bird Kohli RN - 11/30/2022 11:22 AM EDT LAB TRACKING Shanita Francisco : 1945 DIAGNOSIS: ITP LABS ORDERED: cbc/diff every 8 weeks at [facility] MEDICATIONS: 07/16/20- dexamethasone 40 IV day one then daily for 3 days 08/05/20-08/08/20 dexamethasone 40 mg po x4 days IVIG- 12/15,12/16,01/08, 01/09 Rituxan to start 01/16- 4 doses given Pred 40 mg x4 days 02/19/21-02/22/21 Assessment/Plan: Labs sent to provider for review. Continue CBC diff every 2 months. Next due ~02/01/23. Pt is in agreement with plan. She will call sooner if any changes or concerns. She does have FUV12/15/22 so lab interval may change. 07/05/22 00:00 09/07/22 00:00 11/30/22 00:00 WBC 5.57 (E) 4.98 (E) 6.83 (E) RBC 4.56 (E) Hemoglobin 13.8 (E) 13.9 (E) 14.0 (E) Hematocrit 41.4 (E) 42.0 (E) 42.2 (E) MCV 93.0 (E) Platelets 122 (E) 122 (E) 139 (E) Neutr Abs (ANC) 3.37 (E) 2.83 (E) 4.52 (E) (E): External lab result documented in this encounter Plan of Treatment Upcoming Encounters Date Type Department Care Team (Late st Contact Info) Description 02/22/2024 1:00 PM EDT Office Visit Hematology/Oncology at [address] [phone] Carrie Bruno MD [facility] DR HEMATOLOGY/[place] [address] Oliva Mccabe APRN [facility] DR HEMATOLOGY/[place] [address] 09/11/2024 1:00 PM EST Office Visit Dermatology at [facility] [address] [place] [phone] Lizeth Hallman MD [facility] [address] [place] [address] documented as of this encounter Procedures Procedure Name Priority Date/Time Associated Diagnosis Comments CBC (WITH DIFF) Routine 11/30/2022 documented in this encounter Results * CBC (with Diff) (11/30/2022) WBC 6.83 RBC 4.56 Hemoglobin 14.0 Hematocrit 42.2 MCV 93.0 Platelets 139 Neutr Abs (ANC) 4.52 Blood Historical Provider HEMATOLOGY ORDERA BLES documented in this encounter Visit Diagnoses Not on filedocumented in this encounter Care Teams Home Energy Rater Relationship Specialty Start Date End Date Catracho Vernon MD [address] [place] [address] PCP - General Family Medicine 04/21/18 documented as of this encounter
--- OUTSIDE RECORDS SUMMARY | 2024-02-21 01:28 | XMS_ITS | Encounter Summary ---
Author Organization [facility] [place] [address] Care Team Providers Care Osteopathic Resident Name Role Phone Catracho Vernon MD Primary Care Provider [phone] Reason for Visit * Reason Onset Date Comments Labs Only 06/07/2023 Lab Tracking Encounter Details Date Type Department Care Team (Late st Contact Info) Description 06/07/2023 Telephone Hematology/Oncology at [address] [phone] Bird Kohli, RN Labs Only [...] Telephone Encounter - Bird Kohli RN - 06/07/2023 11:54 AM EST LAB TRACKING Shanita Francisco : 1945 DIAGNOSIS: ITP LABS ORDERED: cbc/diff every 8 weeks at [facility] MEDICATIONS: 07/16/20- dexamethasone 40 IV day one then daily for 3 days 08/05/20-08/08/20 dexamethasone 40 mg po x4 days IVIG- 12/15,12/16,01/08, 01/09 Rituxan to start 6/18- 4 doses given Pred 40 mg x4 days 02/19/21-02/22/21 Assessment/Plan: Labs sent to provider for review. Continue CBC/diff every 2 months. She will call sooner if any changes or concerns. Pt is in agreement with plan. 01/31/23 00:00 04/05/23 00:00 06/07/23 00:00 WBC 6.56 (E) 6.59 (E) 5.60 (E) RBC 4.30 (E) 4.68 (E) Hemoglobin 14.2 (E) 12.9 (E) 14.1 (E) Hematocrit 42.4 (E) 39.1 (E) 43.0 (E) MCV 90.0 (E) Platelets 114 (E) 116 (E) 126 (E) Neutr Abs (ANC) 4.13 (E) 4.35 (E) 3.49 (E) (E): External lab result documented in this encounter Plan of Treatment Upcoming Encounters Date Type Department Care Team (Late st Contact Info) Description 02/22/2024 1:00 PM EDT Office Visit Hematology/Oncology at [address] [phone] Carrie Bruno MD [facility] DR HEMATOLOGY/[place] [address] Oliva Mccabe, ABDULLAHI [facility] DR HEMATOLOGY/[place] [address] 09/11/2024 1:00 PM EST Office Visit Dermatology at [facility] [address] [place] [phone] Lizeth Hallman MD [facility] [place] [address] Scheduled Orders Name Type Priority Associated Diagnoses Orde r Schedule CBC (with Diff) Lab STAT Acute ITP Thrombocytopenia As Needed for 12 Occurrences starting 06/07/2023 until 06/07/2024 documented as of this encounter Procedures Procedure Name Priority Date/Time Associated Diagnosis Comments CBC (WITH DIFF) Routine 06/07/2023 documented in this encounter Results * CBC (with Diff) (06/07/2023) WBC 5.60 RBC 4.68 Hemoglobin 14.1 Hematocrit 43.0 Platelets 126 Neutr Abs (ANC) 3.49 Blood Historical Provider HEMATOLOGY ORDERA BLES documented in this encounter Visit Diagnoses Diagnosis Acute ITP Immune thrombocytopenic purpura Thrombocytopenia Thrombocytopenia, unspecified documented in this encounter Care Teams Osteopathic Resident Relationship Specialty Start Date End Date Catracho Vernon MD [address] [place] [address] PCP - General Family Medicine 04/21/18 documented as of this encounter
--- OUTSIDE RECORDS SUMMARY | 2024-02-21 01:28 | XMS_ITS | Encounter Summary ---
Author Organization [facility] [place] [address] Care Team Providers Care Senior Master Scheduler Name Role Phone Catracho Vernon MD Primary Care Provider [phone] Reason for Visit * Reason Onset Date Comments Labs Only 11/23/2023 Lab Tracking Encounter Details Date Type Department Care Team (Late st Contact Info) Description 11/23/2023 Telephone Hematology/Oncology at [address] [phone] Bird Kohli, RN Labs Only [...] Telephone Encounter - Bird Kohli RN - 11/23/2023 9:00 AM EDT LAB TRACKING Shanita Francisco : 1945 DIAGNOSIS: ITP LABS ORDERED: cbc/diff every [address] [facility] 08/24/23 MEDICATIONS: 07/16/20- dexamethasone 40 IV day one then daily for 3 days 08/05/20-08/08/20 dexamethasone 40 mg po x4 days IVIG- 12/15,12/16,01/08, 01/09 Rituxan to start 01/16- 4 doses given Pred 40 mg x4 days 02/19/21-02/22/21 Assessment/Plan: Lab sent to provider for review. Labs and FUV in 3 months, currently scheduled 02/22/24. Pt will call sooner if any concerns. 07/12/23 00:00 08/23/23 00:00 11/22/23 00:00 WBC 7.48 (E) 6.97 (E) 6.99 (E) RBC 4.89 (E) Hemoglobin 12.8 (E) 14.1 (E) 14.7 (E) Hematocrit 39.2 (E) 43.3 (E) 45.1 (E) Platelets 183 (E) 140 (E) 150 (E) Neutr Abs (ANC) 5.13 (E) 4.08 (E) 4.57 (E) Creatinine 1.0 (E) Calcium 10.2 (E) (E): External lab result documented in this encounter Plan of Treatment Upcoming Encounters Date Type Department Care Team (Late st Contact Info) Description 02/22/2024 1:00 PM EDT Office Visit Hematology/Oncology at [address] [phone] Carrie Bruno MD [facility] DR HEMATOLOGY/[place] [address] Oliva Mccabe APRN [facility] HEMATOLOGY/[place] [address] 09/11/2024 1:00 PM EST Office Visit Dermatology at [facility] [address] [place] [address] Lizeth Hallman MD [facility] DR [address] [facility] [address] documented as of this encounter Procedures Procedure Name Priority Date/Time Associated Diagnosis Comments CBC (WITH DIFF) Routine 11/22/2023 COMPREHENSIVE METABOLIC PANEL (NON-FASTING) Routine 11/22/2023 documented in this encounter Results * CBC (with Diff) (11/22/2023) WBC 6.99 RBC 4.89 Hemoglobin 14.7 Hematocrit 45.1 Platelets 150 Neutr Abs (ANC) 4.57 Blood Historical Provider HEMATOLOGY ORDERA BLES * Comprehensive metabolic panel (non-fasting) (11/22/2023) Creatinine 1.0 Calcium 10.2 Blood Historical Provider CHEMISTRY ORDERAB LES documented in this encounter Visit Diagnoses Not on filedocumented in this encounter Care Teams Senior Master Scheduler Relationship Specialty Start Date End Date Catracho Vernon MD [address] [place] [address] PCP - General Family Medicine 04/21/18 documented as of this encounter
--- OUTSIDE RECORDS SUMMARY | 2024-02-21 01:28 | XMS_ITS | Encounter Summary ---
Author Organization [facility] Address [address] [place] [address] Care Team Providers Care Hand Bender Name Role Phone Unavailable Primary Care Provider Unavailabl e Encounter Details Date Type Department Care Team (Latest Contact Info) Description 12/31/2002 17:25 EDT - 01/01/2003 11:59 EDT Hospital Encounter [facility] [address] [place] [address] Cindy Luo MD Discharge Disposition: Home or Self Care Social History Tobacco Use Types Packs/Day Years Used Date Smoking Tobacco: Never Assessed Sex and Gender Information Value Date Recorded Sex Assigned at Not on file Gender Identity Not on file Sexual Orientation Not on file documented as of this encounter Discharge Disposition Disposition Code Departure Means Destination Home or Self Care documented in this encounter Plan of Treatment Not on file documented as of this encounter Procedures Procedure Name Priority Date/Time Associated Diagnosis Comments GLUCOSE, PLASMA Routine 01/01/2003 11:25 EDT COMPLETE BLOOD COUNT Routine 12/31/2002 17:50 EDT documented in this encounter Results * GLUCOSE, PLASMA (01/01/2003 11:25 EDT) Glucose, Plasma 110 70 - 110 mg/dl [facility] 01/01/2003 11:2 5 EDT 01/01/2003 11:38 EDT Cindy Luo MD CHEMISTRY & BLOOD G ORDERABLES [facility] [address] [place] [address] * HEMAGRAM (12/31/2002 17:50 EDT) WBC 4.56 4.0 - 12.4 K/cmm [facility] RBC 4.32 3.86 - 5.04 M/cmm [facility] Hemoglobin 14.0 11.6 - 15.2 gm/dl [facility] HCT 39.6 34.9 - 44.4 % [facility] MCV 92 81 - 98 fl [facility] MCH 32.4 26.7 - 33.3 pg [facility] MCHC 35.3 32.1 - 35.9 gm/dl [facility] PLT 200 141 - 320 K/cmm [facility] RDW-CV 12.2 11.7 - 14.6 % [facility] 12/31/2002 17:5 0 EDT 12/31/2002 17:58 EDT Cindy Luo MD HEMATOLOGY & PF4 OR DERABLES Performing Organization Address [facility] Co de Phone Number [facility] [address] [place] [address] documented in this encounter Visit Diagnoses Not on filedocumented in this encounter
--- OUTSIDE RECORDS SUMMARY | 2024-02-21 01:28 | XMS_ITS | Encounter Summary ---
Author Organization [facility] Address [address] [place] [address] Care Team Providers Care Animal Damage Control Agent Name Role Phone Unavailable Primary Care Provider Unavailabl e Encounter Details Date Type Department Care Team (Latest Contact Info) Description 08/26/1999 17:30 EST - 08/27/1999 11:59 EST Hospital Encounter [facility] [place] [facility] [address] [place] [address] Sites, Cindy Alarcon MD Discharge Disposition: Home or Self Care [...] Procedure Name Priority Date/Time Associated Diagnosis Comments CT OBESE PROTOCOL Routine 08/26/1999 21: 48 EST documented in this encounter Results * CT OBESE PROTOCOL (08/26/1999 21:48 EST) Anatomical Region Laterality Modality Other 08/26/1999 21:4 8 EST Narrative 06/10/2009 13:[address] abd single slice for fat analysis protocol# [id number] CT OBESITY PROTOCOL: 08/26/99. TECHNIQUE: A single axial slice is seen through the lower abdomen. FINDINGS: No abnormalities are seen at this level. /demetrius The attending radiologist has reviewed the images, and concurs with the findings described above. Procedure Note Quintana, Adolfo O, MD / Warren Nielsen MD - 06/10/2009 ct abd single slice for fat analysis protocol# [id number] CT OBESITY PROTOCOL: 08/26/99. TECHNIQUE: A single axial slice is seen through the lower abdomen. FINDINGS: No abnormalities are seen at this level. /demetrius The attending radiologist has reviewed the images, and concurs with the findings described above. Cindy Luo MD IMG CT ORDERABLES documented in this encounter Visit Diagnoses Not on filedocumented in this encounter
--- OUTSIDE RECORDS SUMMARY | 2024-02-21 01:28 | XMS_ITS | Encounter Summary ---
Author Organization [facility] Address [facility] [place] [address] Care Team Providers Care Computer Systems Manager Name Role Phone Catracho Vernon MD Primary Care Provider [phone] Encounter Details Date Type Department Care Team (Late st Contact Info) Description 12/15/2022 11:00 AM EDT Office Visit Hematology/Oncology at [address] [phone] Carrie Heredia MD [facility] DR HEMATOLOGY/[place] [address] Oliva Mccabe APRN [facility] DR HEMATOLOGY/[place] [address] Thrombocytopenia; Acute ITP Social History Tobacco Use Types Packs/Day Years Used Date Smoking Tobacco: Never Smokeless Tobacco: Never Sex and Gender Information Value Date Recorded Sex Assigned at Not on file Gender Identity Female 08/21/2020 5:05 PM EST Sexual Orientation Not on file documented as of this encounter Last Filed Vital Signs Vital Sign Reading Time Taken Comments Blood Pressure 133/64 12/15/2022 11:03 AM EDT Pulse 72 12/15/2022 11:03 AM EDT Temperature 36 ??C (96.8 ??F) 12/15/2022 11:03 AM EDT Respiratory Rate 16 12/15/2022 11:03 AM EDT Oxygen Saturation 98% 12/15/2022 11:03 AM EDT Inhaled Oxygen Concentration - - Weight 72.6 kg (160 lb) 12/15/2022 11:03 AM EDT Height 160 cm (5' 2.99) 12/15/2022 11:03 AM EDT Body Mass Index 28.35 12/15/2022 11:03 AM EDT documented in this encounter Progress Notes * Carrie Heredia MD - 12/15/2022 11:00 AM EDT OUTPATIENT HEMATOLOGY CONSULTATION HISTORY PRESENT ILLNESS This patient is a 77 y.o. female presenting for evaluation of thrombocytopenia, [...] 2gm/kg 12/15 &12/16 and 01/08 & 01/09/21 ?? rituxan 100mg 01/16, 01/18, INTERIM HISTORY OF PRESENT ILLNESS Shanita returns in follow-up for her thrombocytopenia. She completed Dex 40 x 4 days in Apr 2018. Relapse Jul 2020. Received Dex 40 X 4 days 07/16- 07/12/19 with good response. Shanita returns to clinictoday in routine follow-up. It has been approximately 5 months since her last visit. Since that time, she reports feeling quite well. She denies changes to her baseline health. No [...] the laparoscopic splenectomy. She has not yet receivedsplenectomy vaccines. She is now fully COVID vaccinated. Covid spike antibody positive, [place] [facility] Her plt have stabilized and she has done remarkably well off all therapy since January 2021. I am presuming this is a response to her rituximab. She remains under considerable stress at home as her has been diagnosed with ALS. 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 50th wedding anniversary in 2018! In 2020 her was diagnosed with ALS. Rare ETOH One daughter is teacher in [employer]. Her daughter and son-in-law work for [employer] in [facility]. One son vegetable tier in [place]. . 3 children total and 4 grandchildren total. Retired [email or web address]. FAMILY HISTORY: Mother: CAD, renal Father: dementia Sibs: 3 sisters Afib; CAD, DM Children: healthy No autoimmune disorders MEDICATIONS AND ALLERGIES- reviewed at this visit Medications 12/15/22 1108 Medication Sig Taking? valsartan (Diovan) 80 mg [...] ubidecarenone (CO Q-10 ORAL) Take by mouth. Yes triamcinolone (Kenalog) 0.1 % Cream Apply twice daily to affected areas for 2 weeks; then take 1 week break. Repeat as needed. Do not use on face, underarms, groin, or genitals. Limit use to less than 14 days total per month. Patient not taking: Reported on 06/16/2022 PAST MEDICAL HISTORY- Patient Active Problem List Diagnosis Code ??? Healthcare maintenance Z00.00 ??? Nevus D22.9 ??? Thrombocytopenia D69.6 ??? Spinal stenosis at L4-L5 level M48.061 COMPREHENSIVE REVIEW OF SYSTEMS Besides what is mentioned in the HPI, all other systems are negative PHYSICAL EXAM BP 133/64 (Patient Position: Sitting) Pulse 72 Temp 36 ??C (96.8 ??F) (Temporal) Resp 16 Ht160 cm (5' 2.99) Wt 72.6 kg (160 lb) SpO2 98% BMI 28.35 kg/m?? Body surface area is 1.8 meters squared. GENERAL: Shanita Francisco appears well [...] wall tenderness. LABORATORY EVALUATION: Labs obtained at [facility] in anticipation of this visit revealed the following; No results found for this or any previous visit (from the past 72 hour(s)). 11/30/22 00:00 WBC 6.83 (E) RBC 4.56 (E) Hemoglobin 14.0 (E) Hematocrit 42.2 (E) MCV 93.0 (E) Platelets 139 (E) Neutr Abs (ANC) 4.52 (E) (E): External lab result RADIOGRAPHIC EVALUATION: No new images reviewed today [...] As above ASSESSMENT: Shanita Francisco is a 77 y.o. female whom I follow for thrombocytopenia. [...] The cyclosporine combinations are more challenging in [facility] as wecannot get levels easily. Shanita tolerates [...] learn more about splenectomy. Today Shanita is doing beautifully. Her platelets are stable in the 120-130K Range. She will continue with every other month labs 2 mos or if she develops a virus, or if she notices bleeding/bruising. Next labs due January 2023. Next appt in Aug 2023. Ref: Journal of Hematology 2013 [place]. MM labs negative -these were checked given [...] at this time. Patient aware. Social - with ALS continues to worsen. He is 79 yo. Losing weight. Cognitively he is in tact. Wheelchair. Plan: ?? IVIG 1 g/kg/day x 2 days OR dex 40mg X 4 days for plt less than 30k and fu appt. ?? Cbc every 2 Months or if she develops virus or bleeding/bruising with RN tracking ?? RTC in Aug 2023 ?? Hep B and hep C negative in July 2021. She no longer has adequate hep B antibodies, she willdiscuss the role of a booster vaccination with her PCP. I discussed all of the above with the patient and all of her questions were answered. Support and counseling given as appropriate. Shanita A Nolan knows that she can call us any time with questions orconcerns. CARRIE HEREDIA MD Cc: Catracho Vernon MD documented in this encounter Plan of Treatment Upcoming Encounters Date Type Department Care Team (Late st Contact Info) Description 02/22/2024 1:00 PM EDT Office Visit Hematology/Oncology at [address] [phone] Carrie Heredia MD [facility] DR HEMATOLOGY/[place] [address] Oliva Mccabe APRN [facility] DR HEMATOLOGY/[place] [address] 09/11/2024 1:00 PM EST Office Visit Dermatology at [address] [address] Lizeth Hallman MD [facility] [place] [address] documented as of this encounter Visit Diagnoses Diagnosis Thrombocytopenia Thrombocytopenia, unspecified Acute ITP Immune thrombocytopenic purpura documented in this encounter Care Teams Computer Systems Manager Relationship Specialty Start Date End Date Catracho Vernon MD [address] [place] [address] [place] [address] PCP - General Family Medicine 04/21/18 documented as of this encounter
--- OUTSIDE RECORDS SUMMARY | 2024-02-21 01:28 | XMS_ITS | Encounter Summary ---
Author Organization [facility] [place] [address] Care Team Providers Care Necktie Turner Name Role Phone Catracho Vernon MD Primary Care Provider [phone] Reason for Visit * Reason Onset Date Comments Labs Only 08/05/2021 Lab Tracking Encounter Details Date Type Department Care Team (Late st Contact Info) Description 08/05/2021 Telephone Hematology/Oncology at [address] [phone] Bird Kohli, RN Labs Only (Lab Tracking) Social History Tobacco Use Types Packs/Day Years Used Date Smoking Tobacco: Never Smokeless Tobacco: Never Sex and Gender Information Value Date Recorded Sex Assigned at Not on file Gender Identity Female 08/21/2020 5:05 PM EST Sexual Orientation Not on file documented as of this encounter Miscellaneous Notes * Telephone Encounter - Bird Kohli RN - 08/05/2021 8:56 AM EST LAB TRACKING Torrey Conteh : 1945 DIAGNOSIS: ITP LABS ORDERED: cbc/diff every 4 weeks at [facility], also needs CMP if getting IVIG MEDICATIONS: 07/16/20- dexamethasone 40 IV day one then daily for 3 days 08/05/20-08/08/20 dexamethasone 40 mg po x4 days IVIG- 12/15,12/16,01/08, 6/11 Rituxan to start 01/16- 4 doses given Pred 40 mg x4 days 02/19/21-02/22/21 Assessment/Plan: Plan IVIG 1 g/kg/day x 2 days OR dex 40mg X 4 days for plt less than 30k and fu appt. We will put a hold on getting a BMBx for now, she in in agreement with plan. Stacey Bhatt CAMP COOK sent labs to review. Labs again next month, going 09/07/21 to [facility]. Results for TORREY CONTEH ( ) as of 08/05/2021 08:57 Ref. Range 05/18/2021 00:00 06/08/2021 00:00 07/06/2021 00:00 08/03/2021 00:00 WBC Unknown 5.82 9.01 6.25 5.06 Hemoglobin Unknown 14.3 14.0 14.1 14.5 Hematocrit Unknown 43.0 42.2 43.1 44.2 MCV Unknown 89.8 90.9 91.3 Platelets Unknown 114 131 124 122 Neutr Abs (ANC) Unknown 3.47 6.46 4.31 3.23 documented in this encounter Plan of Treatment Upcoming Encounters Date Type Department Care Team (Late st Contact Info) Description 02/22/2024 1:00 PM EDT Office Visit Hematology/Oncology at [address] [address] Carrie Bruno MD [facility] HEMATOLOGY/[place] [address] Oliva Mccabe APRN [facility] HEMATOLOGY/[place] [address] 09/11/2024 1:00 PM EST Office Visit Dermatology at [facility] [address] [place] [address] Lizeth Hallman MD [facility] [address] [place] [address] documented as of this encounter Procedures Procedure Name Priority Date/Time Associated Diagnosis Comments CBC (WITH DIFF) Routine 08/03/2021 documented in this encounter Results * CBC (with Diff) (08/03/2021) WBC 5.06 Hemoglobin 14.5 Hematocrit 44.2 MCV 91.3 Platelets 122 Neutr Abs (ANC) 3.23 Blood Historical Provider HEMATOLOGY ORDERA BLES documented in this encounter Visit Diagnoses Not on filedocumented in this encounter Care Teams Necktie Turner Relationship Specialty Start Date End Date Catracho eVrnon MD [address] [place] [address] PCP - General Family Medicine 04/21/18 documented as of this encounter
--- OUTSIDE RECORDS SUMMARY | 2024-02-21 01:28 | XMS_ITS | Encounter Summary ---
Author Organization [facility] Address [facility] [place] [address] Care Team Providers Care Manufacturing Maintenance Mechanic Name Role Phone Catracho Vernon MD Primary Care Provider [phone] Encounter Details Date Type Department Care Team (Latest Contact Info) Description 08/17/2023 Travel Social History Tobacco Use Types Packs/Day Years Used Date Smoking Tobacco: Never Smokeless Tobacco: Never Sex and Gender Information Value Date Recorded Sex Assigned at Not on file Gender Identity Female 08/21/2020 5:05 PM EST Sexual Orientation Not on file documented as of this encounter Plan of Treatment Upcoming Encounters Date Type Department Care Team (Late st Contact Info) Description 02/22/2024 1:00 PM EDT Office Visit Hematology/Oncology at [address] [phone] Carrie Bruno MD [facility] DR HEMATOLOGY/[place] [address] Oliva Mccabe, [employer] [facility] HEMATOLOGY/[place] [address] 09/11/2024 1:00 PM EST Office Visit Dermatology at [facility] [address] [place] [address] Lizeth Hallman MD [facility] [place] [address] documented as of this encounter Visit Diagnoses Not on filedocumented in this encounter Care Teams Manufacturing Maintenance Mechanic Relationship Specialty Start Date End Date Catracho Vernon MD [address] [place] [address] PCP - General Family Medicine 04/21/18 documented as of this encounter
--- OUTSIDE RECORDS SUMMARY | 2024-02-21 01:28 | XMS_ITS | Encounter Summary ---
Author Organization [facility] [place] [address] Care Team Providers Care Java Tech Lead Name Role Phone Catracho Vernon MD Primary Care Provider [phone] Reason for Visit * Reason Onset Date Comments Labs Only 07/07/2021 lab tracking Encounter Details Date Type Department Care Team (Late st Contact Info) Description 07/07/2021 Telephone Hematology/Oncology at [address] [phone] Jackie Salinas RN Labs Only (lab tracking) Social History Tobacco Use Types Packs/Day Years Used Date Smoking Tobacco: Never Smokeless Tobacco: Never Sex and Gender Information Value Date Recorded Sex Assigned at Not on file Gender Identity Female 08/21/2020 5:05 PM EST Sexual Orientation Not on file documented as of this encounter Miscellaneous Notes * Telephone Encounter - Jackie Salinas RN - 07/07/2021 9:01 AM EST LAB TRACKING Torrey Conteh : 1945 DIAGNOSIS: ITP LABS ORDERED: cbc/diff every 4 weeks at [facility], also needs CMP if getting IVIG MEDICATIONS: 07/16/20- dexamethasone 40 IV day one then daily for 3 days 08/05/20-08/08/20 dexamethasone 40 mg po x4 days IVIG- 12/15,12/16,01/08, 01/09 Rituxan to start 01/16- 4 doses given Pred 40 mg x4 days 02/19/21-02/22/21 Assessment/Plan: Plan IVIG or dexamethasone for platelets close to or less than 30,000. We will puta hold on getting a BMBx for now, she in in agreement with plan. Stacey Bhatt SPORTS CLERK sent labs to review. Pt due in clinic on 07/15/21. We will decide that day when she is due for labs again. Results for TORREY CONTEH ( ) as of 07/07/2021 09:01 Ref. Range 04/27/2021 00:00 05/18/2021 00:00 06/08/2021 00:00 07/06/2021 00:00 WBC Unknown 4.68 5.82 9.01 6.25 Hemoglobin Unknown 13.9 14.3 14.0 14.1 Hematocrit Unknown 42.4 43.0 42.2 43.1 MCV Unknown 91.6 89.8 90.9 Platelets Unknown 129 114 131 124 Neutr Abs (ANC) Unknown 2.79 3.47 6.46 4.31 documented in this encounter Plan of Treatment Upcoming Encounters Date Type Department Care Team (Late st Contact Info) Description 02/22/2024 1:00 PM EDT Office Visit Hematology/Oncology at [address] [phone] Carrie Brnuo MD [facility] DR HEMATOLOGY/[place] [address] Oliva Mccabe APRN [facility] HEMATOLOGY/[place] [address] 09/11/2024 1:00 PM EST Office Visit Dermatology at [facility] [address] [place] [phone] Lizeth Hallman MD [facility] [place] [address] documented as of this encounter Procedures Procedure Name Priority Date/Time Associated Diagnosis Comments CBC (WITH DIFF) Routine 07/06/2021 documented in this encounter Results * CBC (with Diff) (07/06/2021) WBC 6.25 Hemoglobin 14.1 Hematocrit 43.1 Platelets 124 Neutr Abs (ANC) 4.31 Blood 07/06/2021 Historical Provider HEMATOLOGY ORDERA BLES documented in this encounter Visit Diagnoses Not on filedocumented in this encounter Care Teams Java Tech Lead Relationship Specialty Start Date End Date Catracho Vernon MD [address] [place] [address] PCP - General Family Medicine 04/21/18 documented as of this encounter
--- OUTSIDE RECORDS SUMMARY | 2024-02-21 01:28 | XMS_ITS | Encounter Summary ---
Author Organization [facility] Address [address] [place] [address] Care Team Providers Care Dredge Lever Operator Name Role Phone Catracho Pink MD Primary Care Provider [phone] Encounter Details Date Type Department Care Team (Late st Contact Info) Description 07/28/2020 Lab Requisition [facility] Pathology & Laboratory Medicine - [address] [id number] Outr Resulting Lab, Provider Social History Tobacco Use Types Packs/Day Years Used Date Smoking Tobacco: Never Assessed Sex and Gender Information Value Date Recorded Sex Assigned at Not on file Gender Identity Not on file Sexual Orientation Not on file documented as of this encounter Plan of Treatment Not on file documented as of this encounter Procedures Procedure Name Priority Date/Time Associated Diagnosis Comments HEPATITIS C AB W REFLEX TO HCV RNA BY PCR Routine 07/28/2020 8:50 EST HEPATITIS B SURFACE ANTIBODY Routine 07/28/2020 8:50 EST HEPATITIS B SURFACE ANTIGEN Routine 07/28/2020 8:50 EST documented in this encounter Results * HEPATITIS B SURFACE ANTIBODY (07/28/2020 8:50 EST) Hep B Surface Ab, Quantitative <3.1 See Note mIU/mL 07/29/2020 9:37 EST [facility] Comment: Reference Range for Hep B Surface Ab, Quant: Positive: >= 10.0 mIU/mL Negative: ??< 10.0 mIU/mL Patient is presumed to not be immune to infection with Hepatitis B Virus. Hep B Surface Ab, Qualitative Negative See Note 07/29/2020 9:37 EST [facility] Comment: Reference Range for Hep B Surface Ab, Qual: Unvaccinated: ??Negative Vaccinated: ??Positive Blood VENOUS BLOOD / Unknown 07/28/2020 8:50 EST 07/28/2020 15:33 EST Provider Outr Resulting Lab CHEMISTRY & BLOOD GAS ORDERABLES Performing Organization Address City/[facility]/ZIP Co de Phone Number [facility] [address] [place] [address] * HEPATITIS B SURFACE ANTIGEN (07/28/2020 8:50 EST) Hep B Surface Ag Negative Negative 07/29/2020 9:45 EST [facility] Blood VENOUS BLOOD / Unknown 07/28/2020 8:50 EST 07/28/2020 15:33 EST Provider Outr Resulting Lab CHEMISTRY & BLOOD GAS ORDERABLES Performing Organization Address City/[facility]/ZIP Co de Phone Number [facility] [address] [place] [address] * HEPATITIS C AB W REFLEX TO HCV RNA BY PCR (07/28/2020 8:50 EST) Hep C Antibody Negative Negative 07/29/2020 10:27 EST [facility] Blood VENOUS BLOOD / Unknown 07/28/2020 8:50 EST 07/28/2020 15:33 EST Provider Outr Resulting Lab CHEMISTRY & BLOOD GAS ORDERABLES Performing Organization Address City/[facility] Co de Phone Number [facility] [address] [place] [address] documented in this encounter Visit Diagnoses Not on filedocumented in this encounter Care Teams Dredge Lever Operator Relationship Specialty Start Date End Date Catracho Pink MD PCP - General 06/22/15 documented as of this encounter
--- OUTSIDE RECORDS SUMMARY | 2024-02-21 01:28 | XMS_ITS | Encounter Summary ---
Author Organization [facility] Address [facility] [place] [address] Care Team Providers Care Mobile Sales Expert Name Role Phone Catracho Vernon MD Primary Care Provider [phone] Encounter Details Date Type Department Care Team (Late st Contact Info) Description 01/13/2022 2:00 PM EDT Office Visit Hematology/Oncology at [address] [phone] Carrie Heredia MD [facility] DR HEMATOLOGY/[place] [address] Acute ITP Social History Tobacco Use Types Packs/Day Years Used Date Smoking Tobacco: Never Smokeless Tobacco: Never Sex and Gender Information Value Date Recorded Sex Assigned at Not on file Gender Identity Female 08/21/2020 5:05 PM EST Sexual Orientation Not on file documented as of this encounter Last Filed Vital Signs Vital Sign Reading Time Taken Comments Blood Pressure 148/65 01/13/2022 1:55 PM EDT Pulse 77 01/13/2022 1:55 PM EDT Temperature 36.5 ??C (97.7 ??F) 01/13/2022 1:55 PM ED T Respiratory Rate 16 01/13/2022 1:55 PM EDT Oxygen Saturation 97% 01/13/2022 1:55 PM EDT Inhaled Oxygen Concentration - - Weight 74.4 kg (164 lb) 01/13/2022 1:55 PM EDT Height 160 cm (5' 2.99) 01/13/2022 1:55 PM EDT Body Mass Index 29.06 01/13/2022 1:55 PM EDT documented in this encounter Progress Notes * Carrie Heredia MD - 01/13/2022 2:00 PM EDT OUTPATIENT HEMATOLOGY CONSULTATION HISTORY PRESENT ILLNESS This patient is a 76 y.o. female presenting for evaluation of thrombocytopenia, [...] 06/03- ?? 06/08- ?? 07/08- ?? 09/2017- 85 ?? 09/2017- 111 ?? 04/21/2018- 31 - [...] rituxan 100mg 01/16, 01/18, 02/03 INTERIM HISTORY Shanita returns in follow-up for her thrombocytopenia. [...] were dropping prior to her departure for [facility], so she took dexamethasone 40 mg x [...] Covid spike antibody positive, tested 03/03/2021 at [facility].. Received third vaccine/booster as well. Her plt have stabilized and she has done remarkably well off all therapy since January. I am presumingthis is a response to her rituximab. No bleeding or bruising. Her has been diagnosed with ALS but still doing well. On a clinical trial at [facility]. Primarily drop foot at first but now with problems with ambulation. Using a walker.. He remains positive andcommitted to managing the diagnosis. 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 50th wedding anniversary in 2018! In 2020 her was diagnosed with ALS. Rare ETOH One daughter is teacher in [employer]. Her daughter and son-in-law work for [employer] in [facility]. One son loss prevention officer in [place]. . 3 children total and 4 grandchildren total. Retired [employer]. FAMILY HISTORY: Mother: CAD, renal Father: dementia Sibs: 3 sisters Afib; CAD, DM Children: healthy No autoimmune disorders MEDICATIONS AND ALLERGIES- reviewed at this visit Medications 01/13/22 2441 Medication Sig Taking? hydroCHLOROthiazide (Hydrodiuril) 12.5 mg Tablet Take 12.5 mg by mouth daily. Yes TURMERIC ORAL Take 1 capsule by mouth daily. Yes ergocalciferol, vitamin D2, (VITAMIN D ORAL) Take 1,000 mg by mouth daily. Yes dexamethasone (Decadron) 4 mg Tablet Dex 40mg daily X 4 days and repeat q 3 weeks Patient not taking: No sig reported ubidecarenone (CO Q-10 ORAL) Take by mouth. PAST MEDICAL HISTORY- reviewed Patient Active Problem List Diagnosis Code ??? Healthcare maintenance Z00.00 ??? Nevus D22.9 ??? Thrombocytopenia D69.6 ??? Spinal stenosis at L4-L5 level M48.061 COMPREHENSIVE REVIEW OF SYSTEMS Besides what is mentioned in the HPI, all other systems are negative PHYSICAL EXAM BP 148/65 (Patient Position: Sitting) Pulse 77 Temp 36.5 ??C (97.7 ??F) (Temporal) Resp 16 Ht 160 cm (5' 2.99) Wt 74.4 kg (164 lb) SpO2 97% BMI 29.06 kg/m?? Body surface area is 1.82 meters squared. GENERAL: Shanita Francisco appears well [...] 07/28/20 Hep B and Hep C negative 12/30/21 00:00 WBC 5.99 (E) Hemoglobin 13.7 (E) Hematocrit 41.8 (E) Platelets 107 (E) Neutr Abs (ANC) 3.32 (E) (E): External lab result RADIOGRAPHIC EVALUATION 03/03/21 EXAMINATION: CT CHEST ABDOMEN [...] As above ASSESSMENT: Shanita Francisco is a 76 y.o. female whom I follow for thrombocytopenia. He was initiallydetected in June 2017, when her platelets were 11. This was roughly 1-2 weeks after receiving the flu shot, which has been the only potential trigger identified. In Apr 2018, her platelets fell to 31, without apparent trigger, and she was treated with Dex 40 x 4 days, with good response. Ms Francisco is a delightful 76 y.o. female who in retrospect probably had [...] The cyclosporine combinations are more challenging in [facility] as wecannot get levels easily. Shanita tolerates the Dex poorly w/ SFX. Shanita has done a lot of research [...] her departure for her family vacation on [facility]. She ultimately canceled her scheduled bone marrow biopsy. I had recommended the BMBX in order to complete the work-up for her ITP, and also because of sclerotic bone lesion seen on her CAT scan. Today Shanita is doing beautifully. Her platelets have been in the 120-130K Range which we are assuming is a delayed response to her rituximab. Today they are a bit lower at 107k. She will continue with every other month labs or if she notices bleeding/bruising. Shanita has seen Dr. Mccall twice, a well-known platelet expert, at [facility]. I appreciate his expertise and involvement. ?? Ref: Journal of Hematology 2013 Florentino-Jacque. MM labs negative -these were checked given her skeletal findings on CT Diarrhea - started w/ dex and never [...] and fu appt. ?? Cbc every 2 months with RN tracking ?? RTC in late June with CBC (to avoid holidays) ?? Meet w/ Layout Mechanic today for Advanced Directive per her request ?? Meet w/ nutrition today for wt control discussion per her request ?? Hep B and hep C negative [...] This note was written or modified using Tabber voice recognition software. The final note was screened for mistakes. Please excuse any remaining errors. CARRIE HEREDIA MD documented in this encounter Plan of Treatment Upcoming Encounters Date Type Department Care Team (Late st Contact Info) Description 02/22/2024 1:00 PM EDT Office Visit Hematology/Oncology at [address] [phone] Carrie Heredia MD [facility] DR HEMATOLOGY/[place] [address] Oliva Mccabe, ABDULLAHI [facility] DR HEMATOLOGY/[place] [address] 09/11/2024 1:00 PM EST Office Visit Dermatology at [facility] [address] [place] [address] Lizeth Hallman MD [facility] [place] [address] documented as of this encounter Procedures Procedure Name Priority Date/Time Associated Diagnosis Comments CBC (WITH DIFF) Routine 12/30/2021 documented in this encounter Results * CBC (with Diff) (12/30/2021) WBC 5.99 Hemoglobin 13.7 Hematocrit 41.8 Platelets 107 Neutr Abs (ANC) 3.32 Blood 12/30/2021 Historical Provider HEMATOLOGY ORDERA BLES documented in this encounter Visit Diagnoses Diagnosis Acute ITP Immune thrombocytopenic purpura documented in this encounter Care Teams Mobile Sales Expert Relationship Specialty Start Date End Date Catracho Vernon MD [address] [place] [address] PCP - General Family Medicine 04/21/18 documented as of this encounter
--- OUTSIDE RECORDS SUMMARY | 2024-02-21 01:28 | XMS_ITS | Encounter Summary ---
Author Organization [facility] Address [address] [place] [address] Care Team Providers Care Auto Damage Insurance Appraiser Name Role Phone Unavailable Primary Care Provider Unavailabl e Encounter Details Date Type Department Care Team (Late st Contact Info) Description 09/03/2010 Results Only [facility] Laboratory Services - [facility] ([facility]) [address] [place], [place] [address] Elyssa Mcpherson MD [address] [place] [address] [address] [place] [phone] Social History Tobacco Use Types Packs/Day Years Used Date Smoking Tobacco: Never Assessed Sex and Gender Information Value Date Recorded Sex Assigned at Not on file Gender Identity Not on file Sexual Orientation Not on file documented as of this encounter Plan of Treatment Not on file documented as of this encounter Procedures Procedure Name Priority Date/Time Associated Diagnosis Comments CYTOPATHOLOGY Routine 09/03/2010 0:00 EST documented in this encounter Results * CYTOPATHOLOGY (09/03/2010 0:00 EST) Pathology Report: CYTOPATHOLOGY REPORT ? Reports generated via electronic interface contain original data; ? however they are lacking the format of the original report. ? Caution should be taken when reading/interpreti ng unformatted reports. ? Name: ? WERO, TORREY ? Accession #: ? [id number] ? : ? 1945 (Age: 65) ??F ?Collect Date: ? 09/03/2010 ? Location: ? [facility] ? Receive Date: ? 09/07/2010 ? Provider: ELYSSA M DOBBERTIN MD ? Copy to: ? Final Report ? SPECIMEN ADEQUACY ? Satisfactory for Evaluation ? - assessment of transformation zone component not applicable ( e.g. atrophy, ? vaginal sample, hysterectomy) ? GENERAL CATEGORIZATION ? Negative for Intraepithelial Lesion or Malignancy ? Menstural/Pregnanc y Status: ??Post Menopausal ? Specimen/Source: ??Pap Test, Endocervix, ThinPrep Imaging System with manual ? evaluation ? Document reviewed and electronically signed by: ? Lorrie Noel [place], [place](ASCP) ? Report ??Date: 09/09/2010 12:43 ? HPV with Pap Test ? Date Ordered: ? 09/09/2010 ? Status: ?? Signed Out ?Date Complete: ? 09/15/2010 ? By: ??System Interface ? Date Reported: ? 09/15/2010 ? Interpretation ? RESULT: Negative for HPV types 16, 18, 31, 33, 35, 39, 45, 51, 52, ? 56, 58, 59, and 68. ? Comments ? Document reviewed and electronically signed by: ? System Interface ? Report date: 09/15/2010 ? By the signature above, the attending physician certifies that he/she has ? personally conducted a gross and/or microscopic examination of the described ? specimens and rendered or confirmed the above diagnosis. ? End of Report ? AUGUSTIN VASQUEZ 09/03/2010 09/07/2010 Elyssa Mcpherson MD PATHOLOGY ORDERABLE S Performing Organization Address City/State/[facility] Co de Phone Number [facility] [address] [place] [address] documented in this encounter Visit Diagnoses Not on filedocumented in this encounter
--- OUTSIDE RECORDS SUMMARY | 2024-02-21 01:28 | XMS_ITS | Encounter Summary ---
Author Organization Health system Address [address] [place] [address] Care Team Providers Care Food Service Name Role Phone Catracho Pink MD Primary Care Provider [phone] Encounter Details Date Type Department Care Team (Late st Contact Info) Description 05/26/2020 Lab Requisition [facility] Pathology & Laboratory Medicine - [address] [address] Outr Resulting Lab, Provider Social History Tobacco [...] Procedure Name Priority Date/Time Associated Diagnosis Comments DO NOT ORDER STANDALONE - BROAD COVID TEST Today 05/26/2020 10:44 EDT COVID-19 TESTING Routine 05/26/2020 10:4 4 EDT documented in this encounter Results * DO NOT ORDER STANDALONE - BROAD COVID TEST (05/26/2020 10:44 EDT) COVID-19 rt-PCR Result NEGATIVE Negative 05/27/2020 18:36 EDT [facility] Comment: 2019-novel Coronavirus (2019-nCoV) not detected by the qRT-PCR assay. Consider testing for other respiratory viruses or re-collecting for 2019-nCoV testing. Note: Optimum timing for peak viral levels during infections caused by 2019-nCoV have not been determined. Collection of multiple specimens from the same patient may be necessary to detect the virus. Limitations Positive results are indicative of active infection with SARS-CoV-2 but do not rule out bacterial infection or co-infection with other viruses. The agent detected may not be the definite cause of disease. In addition, detection of viral RNA may not indicate the presence of infectious virus or that SARS-CoV-2 is the causative agent for clinical symptoms. Negative results do not preclude SARS-CoV-2 infection and should not be used as the sole basis for patient management decisions. Negative results must be combined with clinical observations, patient history, and epidemiological information. False negative results may also occur if amplification inhibitors are present in the specimen or if inadequate numbers of organisms are present in the specimen. Optimum specimen types and timing for peak viral levels during infections caused by SARS-CoV-2 have not been fully determined. Collection of multiple specimens (types and time points) from the same patient may be necessary to detect the virus. The test was validated for use with upper respiratory specimens obtained via nasopharyngeal or oropharyngeal swabs in VTM, UTM, M4, M5, M6, saline, and MTM media. The performance of this test has not been established for other specimens. Specimens collected using other FDA recommended Specimen Collection Materials listed in the FDA COVID-19 Diagnostic [employer] communication (October 25, 2019) are processed with the caveat that they were not all validated for use with this test and the result must be interpreted in this context. Furthermore, a false negative results may occur if a specimen is improperly collected, transported or handled. If the virus mutates in the RT-PCR target region, SARS-CoV-2 may not be detected or may be detected less predictably. Inhibitors or other types of interference may produce a false negative result. An interference study evaluating the effect of common cold medications was not performed. This test is not FDA-cleared but its performance characteristics were established by our CLIA-certified, CAP-accredited, high complexity laboratory in accordance with CLIA regulations, College of [place]ologists (CAP) guidelines (Oct 18, 2019), and FDA guidance (Sep 29, 2019). This test is only for use under the Food and Drug Administration's Emergency Use Authorization. Swab ENTIRE NASOPHARYNX / Unknown 05/26/2020 10:44 EDT 05/26/2020 20:45 EDT Provider Outr Resulting Lab MICROBIOLOGY - GENERAL ORDERABLES [facility] [place] * COVID-19 TESTING (05/26/2020 10:44 EDT) COVID-19 rt-PCR Result NEGATIVE Negative 05/27/2020 21:08 EDT [facility] Comment: 2019-novel Coronavirus (2019-nCoV) not detected by the qRT-PCR assay. Consider testing for other respiratory viruses or re-collecting for 2019-nCoV testing. Note: Optimum timing for peak viral levels during infections caused by 2019-nCoV have not been determined. Collection of multiple specimens from the same patient may be necessary to detect the virus. Limitations Positive results are indicative of active infection with SARS-CoV-2 but do not rule out bacterial infection or co-infection with other viruses. The agent detected may not be the definite cause of disease. In addition, detection of viral RNA may not indicate the presence of infectious virus or that SARS-CoV-2 is the causative agent for clinical symptoms. Negative results do not preclude SARS-CoV-2 infection and should not be used as the sole basis for patient management decisions. Negative results must be combined with clinical observations, patient history, and epidemiological information. False negative results may also occur if amplification inhibitors are present in the specimen or if inadequate numbers of organisms are present in the specimen. Optimum specimen types and timing for peak viral levels during infections caused by SARS-CoV-2 have not been fully determined. Collection of multiple specimens (types and time points) from the same patient may be necessary to detect the virus. The test was validated for use with upper respiratory specimens obtained via nasopharyngeal or oropharyngeal swabs in VTM, UTM, M4, M5, M6, saline, and MTM media. The performance of this test has not been established for other specimens. Specimens collected using other FDA recommended Specimen Collection Materials listed in the FDA COVID-19 [employer] communication (October 25, 2019) are processed with the caveat that they were not all validated for use with this test and the result must be interpreted in this context. Furthermore, a false negative results may occur if a specimen is improperly collected, transported or handled. If the virus mutates in the RT-PCR target region, SARS-CoV-2 may not be detected or may be detected less predictably. Inhibitors or other types of interference may produce a false negative result. An interference study evaluating the effect of common cold medications was not performed. This test is not FDA-cleared but its performance characteristics were established by our CLIA-certified, CAP-accredited, high complexity laboratory in accordance with CLIA regulations, College of [place] Pathologists (CAP) guidelines (Oct 18, 2019), and FDA guidance (Sep 29, 2019). This test is only for use under the Food and Drug Administration's Emergency Use Authorization. Performing Lab [facility] 05/27/2020 21:08 EDT [facility] Swab 05/26/2020 10:4 4 EDT 05/26/2020 20:45 EDT Provider Outr Resulting Lab MICROBIOLOGY - GENERAL ORDERABLES [facility] [address] [place], [place] [id number] [place] [address] LABORATORY [place], [place] documented in this encounter Visit Diagnoses Not on filedocumented in this encounter Care Teams Food Service Relationship Specialty Start Date End Date Catracho Pink MD PCP - General 06/22/15 documented as of this encounter
--- OUTSIDE RECORDS SUMMARY | 2024-02-21 01:28 | XMS_ITS | Encounter Summary ---
Author Organization [facility] [place] [address] Care Team Providers Care Garment Worker Name Role Phone Catracho Vernon MD Primary Care Provider Reason for Visit * Reason Comments Follow-up Encounter Details Date Type Department Care Team (Late st Contact Info) Description 06/16/2022 1:00 PM EST Office Visit Hematology/Oncology at [address] [address] Carrie Bruno MD [facility] DR HEMATOLOGY/[place] [address] Flor Gilmore APRN [facility] DR HEMATOLOGY/[place] [address] Thrombocytopenia; Diarrhea, unspecified type Social History Tobacco Use Types Packs/Day Years Used Date Smoking Tobacco: Never Smokeless Tobacco: Never Sex and Gender Information Value Date Recorded Sex Assigned at Not on file Gender Identity Female 08/21/2020 5:05 PM EST Sexual Orientation Not on file documented as of this encounter Last Filed Vital Signs Vital Sign Reading Time Taken Comments Blood Pressure 138/64 06/16/2022 1:00 PM EST Pulse 65 06/16/2022 1:00 PM EST Temperature 36.3 ??C (97.3 ??F) 06/16/2022 1:00 PM ES T Respiratory Rate 16 06/16/2022 1:00 PM EST Oxygen Saturation 99% 06/16/2022 1:00 PM EST Inhaled Oxygen Concentration - - Weight 73.2 kg (161 lb 6.4 oz) 06/16/2022 1:00 P M EST Height 160 cm (5' 2.99) 06/16/2022 1:00 PM EST Body Mass Index 28.6 06/16/2022 1:00 PM EST documented in this encounter Progress Notes * Eliot Flor M, PEELED POTATO INSPECTOR - 06/16/2022 1:00 PM EST OUTPATIENT HEMATOLOGY CONSULTATION HISTORY [...] complete ?? IVIG 2gm/kg 12/15 &12/16 and 6/10 & 01/09 ?? rituxan 100mg 01/16, 01/18, 02/03 INTERIM HISTORY OF PRESENT ILLNESS Shanita returns [...] Covid spike antibody positive, tested 03/03/2021 at [facility]. Her plt have stabilized and she has done remarkably well off all therapy since January. Stanley presuming this is a response to her rituximab. She remains under considerable stress at home as her has been diagnosed with ALS. 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 50th wedding anniversary in 2018! In 2020 her was diagnosed with ALS. Rare ETOH One daughter is teacher in [place]. Her daughter and son-in-law work for [employer] in [facility]. One son dip brazier in [place]. . 3 children total and 4 grandchildren total. Retired [employer]. FAMILY HISTORY: Mother: CAD, renal Father: dementia Sibs: 3 sisters Afib; CAD, DM Children: healthy No autoimmune disorders MEDICATIONS AND ALLERGIES- reviewed at this visit Medications 06/22/22 0718 Medication Sig Taking? lisinopriL (Zestril) 10 mg Tablet Take 10 mg by mouth daily. Yes Azelaic Acid (FINACEA) 15 % Gel After skin is thoroughly washed and patted dry, gently but thoroughly massage a thin film of azelaic acid cream into the affected area twice daily, in the morning and evening. Yes TURMERIC ORAL Take 1 capsule by mouth daily. Yes ergocalciferol, vitamin D2, (VITAMIN D ORAL) Take 1,000 mg by mouth daily. Yes metroNIDAZOLE (METROCREAM) 0.75 % Cream Apply 1-2 times daily to faced as needed Patient not taking: Reported on 06/16/2022 triamcinolone (Kenalog) 0.1 % Cream Apply twice daily to affected areas for 2 weeks; then take 1 week break. Repeat as needed. Do not use on face, underarms, groin, or genitals. Limit use to less than 14 days total per month. Patient not taking: Reported on 06/16/2022 dexamethasone (Decadron) 4 mg Tablet Dex 40mg [...] other systems are negative PHYSICAL EXAM BP 138/64 (Patient Position: Lying) Pulse 65 Temp 36.3 ??C (97.3 ??F) (Temporal) Resp 16 Ht160 cm (5' 2.99) Wt 73.2 kg (161 lb 6.4 oz) SpO2 99% BMI 28.60 kg/m?? Body surface area is 1.8 meters squared. GENERAL: Shanita Francisco is a well-developed, well-nourished, well-appearing though slightly -[id number] woman in no acute distress Physical exam not performed today LABORATORY EVALUATION: Labs obtained at [facility] on 05/03/2022 in anticipation of this visit revealed the following; WBC: 5.70 Hgb: 14.1 plt count: 126,000 RADIOGRAPHIC EVALUATION: No new images reviewed today [...] The cyclosporine combinations are more challenging in [facility] as wecannot get levels easily. Shanita [...] month labs or if she notices bleeding/bruising. Ref: Journal of Hematology 2013 Florentino-Jacque. MM [...] months with RN tracking ?? RTC in 6 months ?? Hep B and hep C negative [...] call us any time with questions orconcerns. FLOR GILMORE APRN Nurse Practitioner Section of Hematology [facility] Patten Cc: Catracho Vernon MD documented in this encounter Plan of Treatment Upcoming Encounters Date Type Department Care Team (Late st Contact Info) Description 02/22/2024 1:00 PM EDT Office Visit Hematology/Oncology at [address] [address] Carrie Bruno MD [facility] DR HEMATOLOGY/[place] [address] Flor Gilmore APRN [facility] HEMATOLOGY/[place] [address] 09/11/2024 1:00 PM EST Office Visit Dermatology at [address] [place] [phone] Lizeth Hallman MD [facility] [place] [address] documented as of this encounter Visit Diagnoses Diagnosis Thrombocytopenia Thrombocytopenia, unspecified Diarrhea, unspecified type documented in this encounter Care Teams Garment Worker Relationship Specialty Start Date End Date Catracho Vernon MD [address] [place] [address] [place] [address] PCP - General Family Medicine 04/21/18 documented as of this encounter
--- OUTSIDE RECORDS SUMMARY | 2024-02-21 01:28 | XMS_ITS | Encounter Summary ---
Author Organization [facility] [place] [address] Care Team Providers Care Parachute Officer Name Role Phone Catracho Vernon MD Primary Care Provider [phone] Encounter Details Date Type Department Care Team (Latest Contact Info) Description 12/15/2022 Travel Social History Tobacco Use Types Packs/Day [...] 1:00 PM EDT Office Visit Hematology/Oncology at [address] [phone] Carrie Bruno MD [facility] DR HEMATOLOGY/[place] [address] Oliva Mccabe, COTTON PICKER [facility] HEMATOLOGY/[place] [address] 09/11/2024 1:00 PM EST Office Visit Dermatology at [facility] [address] [place] [phone] Lizeth Hallman MD [facility] [place] [address] documented as of this encounter Visit Diagnoses Not on filedocumented in this encounter Care Teams Parachute Officer Relationship Specialty Start Date End Date Catracho Vernon MD [address] [place] [address] PCP - General Family Medicine 04/21/18 documented as of this encounter
--- OUTSIDE RECORDS SUMMARY | 2024-02-21 01:28 | XMS_ITS | Encounter Summary ---
Author Organization [facility] [place] [address] Care Team Providers Care Hand Crocheter Name Role Phone Catracho Vernon MD Primary Care Provider [phone] Reason for Visit * Reason Onset Date Comments Labs Only 02/02/2023 Lab tracking Encounter Details Date Type Department Care Team (Late st Contact Info) Description 02/02/2023 Telephone Hematology/Oncology at [address] [phone] Leah Ray, RN Labs Only (Lab tracking) Social History Tobacco Use Types Packs/Day Years Used Date Smoking Tobacco: Never Smokeless Tobacco: Never Sex and Gender Information Value Date Recorded Sex Assigned at Not on file Gender Identity Female 08/21/2020 5:05 PM EST Sexual Orientation Not on file documented as of this encounter Miscellaneous Notes * Telephone Encounter - Leah Ray RN - 02/02/2023 10:45 AM EDT LAB TRACKING Shanita Francisco : 1945 DIAGNOSIS: ITP LABS ORDERED: cbc/diff every 8 weeks at [facility] MEDICATIONS: 07/16/20- dexamethasone 40 IV day one then daily for 3 days 08/05/20-08/08/20 dexamethasone 40 mg po x4 days IVIG- 12/15,12/16,01/08, 01/09 Rituxan to start 01/16- 4 doses given Pred 40 mg x4 days 02/19/21-02/22/21 Assessment/Plan: Labs reviewed with Provider. Continue CBC diff every 2 months. Shanita already scheduled next lab draw for 04/05/23. She will call sooner if any changes or concerns. Pt is in agreement with plan. 09/07/22 00:00 11/30/22 00:00 01/31/23 00:00 WBC 4.98 (E) 6.83 (E) 6.56 (E) RBC 4.56 (E) Hemoglobin 13.9 (E) 14.0 (E) 14.2 (E) Hematocrit 42.0 (E) 42.2 (E) 42.4 (E) MCV 93.0 (E) 90.0 (E) Platelets 122 (E) 139 (E) 114 (E) Neutr Abs (ANC) 2.83 (E) 4.52 (E) 4.13 (E) (E): External lab result documented in this encounter Plan of Treatment Upcoming Encounters Date Type Department Care Team (Late st Contact Info) Description 02/22/2024 1:00 PM EDT Office Visit Hematology/Oncology at [address] [phone] Carrie Bruno MD [facility] DR HEMATOLOGY/[place] [address] Oliva Mccabe APRN [facility] HEMATOLOGY/[place] [address] 09/11/2024 1:00 PM EST Office Visit Dermatology at [facility] [address] [place] [phone] Lizeth Hallman MD [facility] DR [address] [place] [address] documented as of this encounter Procedures Procedure Name Priority Date/Time Associated Diagnosis Comments CBC (WITH DIFF) Routine 01/31/2023 documented in this encounter Results * CBC (with Diff) (01/31/2023) WBC 6.56 Hemoglobin 14.2 Hematocrit 42.4 MCV 90.0 Platelets 114 Neutr Abs (ANC) 4.13 Blood 01/31/2023 Historical Provider HEMATOLOGY ORDERA BLES documented in this encounter Visit Diagnoses Not on filedocumented in this encounter Care Teams Hand Crocheter Relationship Specialty Start Date End Date Catracho Vernon MD [address] [place] [address] PCP - General Family Medicine 04/21/18 documented as of this encounter
--- OUTSIDE RECORDS SUMMARY | 2024-02-21 01:28 | XMS_ITS | Encounter Summary ---
Author Organization [facility] Address [address] [place] [address] Care Team Providers Care Retail Merchandising Coordinator Name Role Phone Unavailable Primary Care Provider Unavailabl e Encounter Details Date Type Department Care Team (Late st Contact Info) Description 03/02/2001 11:34 EDT Hospital Encounter [facility] - Other [address] [place] [address] Opal Benito MD Unknown, Provider, Social History Tobacco Use Types Packs/Day Years Used Date Smoking Tobacco: Never Assessed Sex and Gender Information Value Date Recorded Sex Assigned at Not on file Gender Identity Not on file Sexual Orientation Not on file documented as of this encounter Plan of Treatment Not on file documented as of this encounter Procedures Procedure Name Priority Date/Time Associated Diagnosis Comments CYTOPATHOLOGY Routine 03/02/2001 0:00 EDT documented in this encounter Results * CYTOPATHOLOGY (03/02/2001 0:00 EDT) Pathology Report: CYTOPATHOLOGY REPORT Reports generated via electronic interface contain original data; however they are lacking the format of the original report. Caution should be taken when reading/interpreti ng unformatted reports. Name: ? TORREY CONTEH ? Accession #: ? [id number] : ? 1945 (Age: 55) ??F ?Collect Date: ? 03/02/2001 Location: ? [facility] ? Receive Date: ? 03/06/2001 Provider: ?PING SERRANO Copy to: ? Specimen/Source: ?ThinPrep Pap Test, Cervix Last Menstrual Period: ? SPECIMEN ADEQUACY ? Satisfactory for evaluation. GENERAL CATEGORIZATION ? Within Normal Limits ? Document reviewed and electronically signed by: ? RYANNE Jarrett(ASCP) ? Report Date: ??03/10/2001 09:29 End of Report AUGUSTIN VASQUEZ 03/02/2001 03/06/2001 Opal Benito MD PATHOLOGY ORDERABLES AUGUSTIN VASQUEZ [address] [place] [address] documented in this encounter Visit Diagnoses Not on filedocumented in this encounter
--- OUTSIDE RECORDS SUMMARY | 2024-02-21 01:28 | XMS_ITS | Encounter Summary ---
Author Organization [facility] Address [facility] [place] [address] Care Team Providers Care Immigration Specialist Name Role Phone Catracho Vernon MD Primary Care Provider [phone] Encounter Details Date Type Department Care Team (Latest Contact Info) Description 08/24/2023 Travel Social History Tobacco Use Types Packs/Day [...] 1:00 PM EDT Office Visit Hematology/Oncology at [address] [phone] Carrie Bruno MD [facility] DR HEMATOLOGY/[place] [address] Oliva Mccabe, FAMILY LAWYER [facility] HEMATOLOGY/[place] [address] 09/11/2024 1:00 PM EST Office Visit Dermatology at [facility] [address] [place] [phone] Lizeth Hallman MD [facility] [address] [place] [address] documented as of this encounter Visit Diagnoses Not on filedocumented in this encounter Care Teams Immigration Specialist Relationship Specialty Start Date End Date Catracho Vernon MD [address] [place] [address] PCP - General Family Medicine 04/21/18 documented as of this encounter
--- OUTSIDE RECORDS SUMMARY | 2024-02-21 01:28 | XMS_ITS | Encounter Summary ---
Author Organization [facility] [place] [address] Care Team Providers Care Elevator Constructor Helper Name Role Phone Catracho Vernon MD Primary Care Provider [phone] Reason for Visit * Reason Onset Date Comments Labs Only 09/07/2022 Lab tracking Encounter Details Date Type Department Care Team (Late st Contact Info) Description 09/07/2022 Telephone Hematology/Oncology at [address] [phone] aJckie Salinas RN Labs Only (Lab tracking) Social History Tobacco Use Types Packs/Day Years Used Date Smoking Tobacco: Never Smokeless Tobacco: Never Sex and Gender Information Value Date Recorded Sex Assigned at Not on file Gender Identity Female 08/21/2020 5:05 PM EST Sexual Orientation Not on file documented as of this encounter Miscellaneous Notes * Telephone Encounter - Jackie Salinas RN - 09/07/2022 1:11 PM EST LAB TRACKING Shanita Francisco : 1945 DIAGNOSIS: ITP LABS ORDERED: cbc/diff every 8 weeks at [facility] MEDICATIONS: 07/16/20- dexamethasone 40 IV day one then daily for 3 days 08/05/20-08/08/20 dexamethasone 40 mg po x4 days IVIG- 12/15,12/16,01/08, 01/09 Rituxan to start 01/16- 4 doses given Pred 40 mg x4 days 02/19/21-02/22/21 Assessment/Plan: Labs sent to provider for review. Continue CBC diff every 2 months. Next due 11/02/22. Pt is in agreement with plan. She will call sooner if any changes or concerns. Due to see provider 05/03/22 00:00 07/05/22 00:00 09/07/22 00:00 WBC 5.70 (E) 5.57 (E) 4.98 (E) Hemoglobin 14.1 (E) 13.8 (E) 13.9 (E) Hematocrit 42.6 (E) 41.4 (E) 42.0 (E) Platelets 126 (E) 122 (E) 122 (E) Neutr Abs (ANC) 3.63 (E) 3.37 (E) 2.83 (E) (E): External lab result documented in this encounter Plan of Treatment Upcoming Encounters Date Type Department Care Team (Late st Contact Info) Description 02/22/2024 1:00 PM EDT Office Visit Hematology/Oncology at [address] [phone] Carrie Bruno MD [facility] DR HEMATOLOGY/[place] [address] Oliva Mccabe APRN [facility] DR HEMATOLOGY/[place] [address] 09/11/2024 1:00 PM EST Office Visit Dermatology at [address] [place] [address] Lizeth Hallman MD [facility] DR [address] [place] [address] documented as of this encounter Procedures Procedure Name Priority Date/Time Associated Diagnosis Comments CBC (WITH DIFF) Routine 09/07/2022 documented in this encounter Results * CBC (with Diff) (09/07/2022) WBC 4.98 Hemoglobin 13.9 Hematocrit 42.0 Platelets 122 Neutr Abs (ANC) 2.83 Blood 09/07/2022 Historical Provider HEMATOLOGY ORDERA BLES documented in this encounter Visit Diagnoses Not on filedocumented in this encounter Care Teams Elevator Constructor Helper Relationship Specialty Start Date End Date Catracho Vernon MD [address] [place] [address] PCP - General Family Medicine 04/21/18 documented as of this encounter
--- OUTSIDE RECORDS SUMMARY | 2024-02-21 01:28 | XMS_ITS | Encounter Summary ---
Author Organization [facility] Address [facility] [place] [address] Care Team Providers Care Emergency Registrar Name Role Phone Catracho Vernon MD Primary Care Provider [phone] Encounter Details Date Type Department Care Team (Latest Contact Info) Description 06/16/2022 Travel Social History Tobacco Use Types Packs/Day [...] PM EDT Office Visit Hematology/Oncology at [address] [phone] Carrie Bruno MD [facility] DR HEMATOLOGY/[place] [address] Oliva Mccabe, NEUROLOGY PROFESSOR [facility] HEMATOLOGY/[place] [address] 09/11/2024 1:00 PM EST Office Visit Dermatology at [facility] [address] [place] [phone] Lizeth Hallman MD [facility] [place] [address] documented as of this encounter Visit Diagnoses Not on filedocumented in this encounter Care Teams Emergency Registrar Relationship Specialty Start Date End Date Catracho Vernon MD [address] [place] [address] PCP - General Family Medicine 04/21/18 documented as of this encounter
--- OUTSIDE RECORDS SUMMARY | 2024-02-21 01:28 | XMS_ITS | Encounter Summary ---
Author Organization [facility] [place] [address] Care Team Providers Care Supervisor Airplane Flight Attendant Name Role Phone Catracho Vernon MD Primary Care Provider [phone] Reason for Visit * Reason Onset Date Comments Labs Only 01/13/2022 Lab tracking Encounter Details Date Type Department Care Team (Late st Contact Info) Description 01/13/2022 Telephone Hematology/Oncology at [address] [phone] Jackie Salinas RN Labs Only (Lab tracking) Social History Tobacco Use Types Packs/Day Years Used Date Smoking Tobacco: Never Smokeless Tobacco: Never Sex and Gender Information Value Date Recorded Sex Assigned at Not on file Gender Identity Female 08/21/2020 5:05 PM EST Sexual Orientation Not on file documented as of this encounter Miscellaneous Notes * Telephone Encounter - Jackie Salinas RN - 01/13/2022 3:21 PM EDT LAB TRACKING Shanita Francisco : 1945 DIAGNOSIS: ITP LABS ORDERED: cbc/diff every 8 weeks at [facility], MEDICATIONS: 07/16/20- dexamethasone 40 IV day one then daily for 3 days 08/05/20-08/08/20 dexamethasone 40 mg po x4 days IVIG- 12/15,12/16,01/08, 01/09 Rituxan to start 01/16- 4 doses given Pred 40 mg x4 days 02/19/21-02/22/21 Assessment/Plan: Pt saw Dr. Bruno in clinic today. CBC diff every 2 months. Next due 03/01/22. 08/03/21 00:00 09/07/21 00:00 11/02/21 00:00 12/30/21 00:00 WBC 5.06 (E) 5.52 (E) 5.54 (E) 5.99 (E) Hemoglobin 14.5 (E) 14.2 (E) 13.8 (E) 13.7 (E) Hematocrit 44.2 (E) 43.0 (E) 41.3 (E) 41.8 (E) MCV 91.3 (E) Platelets 122 (E) 125 (E) 121 (E) 107 (E) Neutr Abs (ANC) 3.23 (E) 3.32 (E) 3.43 (E) 3.32 (E) (E): External lab result documented in this encounter Plan of Treatment Upcoming Encounters Date Type Department Care Team (Late st Contact Info) Description 02/22/2024 1:00 PM EDT Office Visit Hematology/Oncology at [address] [phone] Carrie Bruno MD [facility] DR HEMATOLOGY/[place] [address] Oliva Mccabe, ABDULLAHI [facility] HEMATOLOGY/[place] [address] 09/11/2024 1:00 PM EST Office Visit Dermatology at [facility] [address] [place] [phone] Lizeth Hallman MD [facility] [address] [place] [address] documented as of this encounter Visit Diagnoses Not on filedocumented in this encounter Care Teams Supervisor Airplane Flight Attendant Relationship Specialty Start Date End Date Catracho Vernon MD [address] [place] [phone] PCP - General Family Medicine 04/21/18 documented as of this encounter
--- OUTSIDE RECORDS SUMMARY | 2024-02-21 01:28 | XMS_ITS | Encounter Summary ---
Author Organization [facility] Address [address] [place] [address] Care Team Providers Care Remote Mortgage Underwriter Name Role Phone Catracho Pink MD Primary Care Provider [phone] Encounter Details Date Type Department Care Team (Late st Contact Info) Description 11/27/2020 Lab Requisition [facility] Pathology & Laboratory Medicine - [address] [phone] Outr Resulting Lab, Provider Social History Tobacco [...] Procedure Name Priority Date/Time Associated Diagnosis Comments GIARDIA AND CRYPTOSPORIDIUM ANTIGENS Routine 11/27/2020 9:00 EDT documented in this encounter Results * GIARDIA AND CRYPTOSPORIDIUM ANTIGENS (11/27/2020 9:00 EDT) Giardia and Cryptosporidium Cryptosporidium Antigen Neg and Giardia Antigen Neg Cryptosporidium Antigen Neg and Giardia Antigen Neg 10:43 EDT [facility] Feces SPECIMEN FROM RECTUM / Unknown 11/27/2020 9:00 EDT 11/27/2020 19:43 EDT Provider Outr Resulting Lab MICROBIOLOGY - GENERAL ORDERABLES [facility] [address] [place] [address] documented in this encounter Visit Diagnoses Not on filedocumented in this encounter Care Teams Remote Mortgage Underwriter Relationship Specialty Start Date End Date Catracho Pink MD PCP - General 06/22/15 documented as of this encounter
--- OUTSIDE RECORDS SUMMARY | 2024-02-21 01:28 | XMS_ITS | Encounter Summary ---
Author Organization [facility] [place] [address] Care Team Providers Care Assistant Hvac Mechanic Name Role Phone Catracho Vernon MD Primary Care Provider [phone] Reason for Visit * Reason Onset Date Comments Labs Only 11/03/2021 Lab Tracking Encounter Details Date Type Department Care Team (Late st Contact Info) Description 11/03/2021 Telephone Hematology/Oncology at [address] [phone] Bird Kohli, RN Labs Only [...] Telephone Encounter - Bird Kohli RN - 11/03/2021 8:53 AM EDT LAB TRACKING Shanita Francisco : 1945 DIAGNOSIS: ITP LABS ORDERED: cbc/diff every 8 weeks at [facility], also needs CMP if getting IVIG MEDICATIONS: [...] now, she in in agreement with plan. Labs sent to provider for review. Labs due again in December along with a FUV. She is in agreement withplan. 08/03/21 00:00 09/07/21 00:00 11/02/21 00:00 WBC 5.06 (E) 5.52 (E) 5.54 (E) Hemoglobin 14.5 (E) 14.2 (E) 13.8 (E) Hematocrit 44.2 (E) 43.0 (E) 41.3 (E) MCV 91.3 (E) Platelets 122 (E) 125 (E) 121 (E) Neutr Abs (ANC) 3.23 (E) 3.32 (E) 3.43 (E) BUN 23 (E) Creatinine 0.9 (E) (E): External lab result documented in this encounter Plan of Treatment Upcoming Encounters Date Type Department Care Team (Late st Contact Info) Description 02/22/2024 1:00 PM EDT Office Visit Hematology/Oncology at [address] [phone] Carrie Bruno MD [facility] HEMATOLOGY/[place] [address] Oliva Mccabe, MAINTENANCE CARPENTER [facility] HEMATOLOGY/[place] [address] 09/11/2024 1:00 PM EST Office Visit Dermatology at [facility] [address] [place] [address] Lizeth Hallman MD [facility] DR [address] [place] [address] documented as of this encounter Procedures Procedure Name Priority Date/Time Associated Diagnosis Comments CBC (WITH DIFF) Routine 11/02/2021 documented in this encounter Results * CBC (with Diff) (11/02/2021) WBC 5.54 Hemoglobin 13.8 Hematocrit 41.3 Platelets 121 Neutr Abs (ANC) 3.43 Blood Historical Provider HEMATOLOGY ORDERA BLES documented in this encounter Visit Diagnoses Not on filedocumented in this encounter Care Teams Assistant Hvac Mechanic Relationship Specialty Start Date End Date Catracho Vernon MD [address] [place] [address] PCP - General Family Medicine 04/21/18 documented as of this encounter
--- OUTSIDE RECORDS SUMMARY | 2024-02-21 01:28 | XMS_ITS | Encounter Summary ---
Author Organization [facility] [place] [address] Care Team Providers Care As400 Operator Name Role Phone Catracho Vernon MD Primary Care Provider [phone] Encounter Details Date Type Department Care Team (Late Contact Info) Description 06/08/2023 Orders Only Hematology/Oncology at [address] [phone] Oliva Mccabe MACHINIST HELPER [facility] HEMATOLOGY/[place] [address] Thrombocytopenia Social History Tobacco Use Types Packs/Day Years Used Date Smoking Tobacco: Never Smokeless Tobacco: Never Sex and Gender Information Value Date Recorded Sex Assigned at Not on file Gender Identity Female 08/21/2020 5:05 PM EST Sexual Orientation Not on file documented as of this encounter Plan of Treatment Upcoming Encounters Date Type Department Care Team (Late Contact Info) Description 02/22/2024 1:00 PM EDT Office Visit Hematology/Oncology at [address] [phone] Carrie Bruno MD [facility] HEMATOLOGY/[place] [address] Oliva Mccabe MACHINIST HELPER [facility] HEMATOLOGY/[place] [address] 09/11/2024 1:00 PM EST Office Visit Dermatology at [facility] [address] [place] [address] Lizeth Hallman MD [facility] [address] [place] [address] Scheduled Orders Name Type Priority Associated Diagnoses Orde r Schedule CBC (with Diff) Lab STAT Thrombocytopenia Every 8 Weeks for 20 Occurrences starting 06/08/2023 until 06/08/2024 documented as of this encounter Visit Diagnoses Diagnosis Thrombocytopenia Thrombocytopenia, unspecified documented in this encounter Care Teams As400 Operator Relationship Specialty Start Date End Date Catracho Vernon MD [address] [place] [address] PCP - General Family Medicine 04/21/18 documented as of this encounter
--- OUTSIDE RECORDS SUMMARY | 2024-02-21 01:28 | XMS_ITS | Encounter Summary ---
Author Organization [facility] [place] [address] Care Team Providers Care Sifting Operator Name Role Phone Catracho Vernon MD Primary Care Provider [phone] Reason for Visit * Reason Onset Date Comments Labs Only 08/24/2023 Lab tracking Encounter Details Date Type Department Care Team (Late st Contact Info) Description 08/24/2023 Telephone Hematology/Oncology at [address] [phone] Jackie Salinas, RN Labs Only (Lab tracking) Social History Tobacco Use Types Packs/Day Years Used Date Smoking Tobacco: Never Smokeless Tobacco: Never Sex and Gender Information Value Date Recorded Sex Assigned at Not on file Gender Identity Female 08/21/2020 5:05 PM EST Sexual Orientation Not on file documented as of this encounter Miscellaneous Notes * Telephone Encounter - Jackie Salinas RN - 08/24/2023 1:28 PM EST LAB TRACKING Shanita Francisco : 1945 DIAGNOSIS: ITP LABS ORDERED: cbc/diff every 3 months at [facility] of 08/24/23 MEDICATIONS: 07/16/20- dexamethasone 40 IV day one then daily for 3 days 08/05/20-08/08/20 dexamethasone 40 mg po x4 days IVIG- 12/15,12/16,01/08, 01/09 Rituxan to start 01/16- 4 doses given Pred 40 mg x4 days 02/19/21-02/22/21 Assessment/Plan: Pt saw Dr. Bruno in clinic today. Labs again in 3 months, see provider in 6 months. 04/05/23 00:00 06/07/23 00:00 07/12/23 00:00 08/23/23 00:00 WBC 6.59 (E) 5.60 (E) 7.48 (E) 6.97 (E) RBC 4.30 (E) 4.68 (E) Hemoglobin 12.9 (E) 14.1 (E) 12.8 (E) 14.1 (E) Hematocrit 39.1 (E) 43.0 (E) 39.2 (E) 43.3 (E) Platelets 116 (E) 126 (E) 183 (E) 140 (E) Neutr Abs (ANC) 4.35 (E) 3.49 (E) 5.13 (E) 4.08 (E) (E): External lab result documented in this encounter Plan of Treatment Upcoming Encounters Date Type Department Care Team (Late st Contact Info) Description 02/22/2024 1:00 PM EDT Office Visit Hematology/Oncology at [address] [phone] [facility] DR HEMATOLOGY/[place] [address] [facility] HEMATOLOGY/[place] [address] 09/11/2024 1:00 PM EST Office Visit Dermatology at [facility] [address] [place] [phone] [facility] [address] [place] [address] documented as of this encounter Visit Diagnoses Not on filedocumented in this encounter Care Teams Sifting Operator Relationship Specialty Start Date End Date Catracho Vernon MD [address] [place] [address] PCP - General Family Medicine 04/21/18 documented as of this encounter
--- OUTSIDE RECORDS SUMMARY | 2024-02-21 01:28 | XMS_ITS | Encounter Summary ---
Author Organization [facility] Address [address] [place] [address] Care Team Providers Care Supervisor Self Service Store Name Role Phone Unavailable Primary Care Provider Unavailabl e Encounter Details Date Type Department Care Team (Late st Contact Info) Description 05/12/2007 Results Only [facility] [address] [place] [address] Winnie Toussaint MD [address] [place] [address] Social History Tobacco Use Types Packs/Day Years Used Date Smoking Tobacco: Never Assessed Sex and Gender Information Value Date Recorded Sex Assigned at Not on file Gender Identity Not on file Sexual Orientation Not on file documented as of this encounter Plan of Treatment Not on file documented as of this encounter Procedures Procedure Name Priority Date/Time Associated Diagnosis Comments CYTOPATHOLOGY Routine 05/12/2007 0:00 EDT documented in this encounter Results * CYTOPATHOLOGY (05/12/2007 0:00 EDT) Pathology Report: CYTOPATHOLOGY REPORT Reports generated via electronic interface contain original data; however they are lacking the format of the original report. Caution should be taken when reading/interpreti ng unformatted reports. Name: ? TORREY CONTEH ? Accession #: ? [id number] : ? 1945 (Age: 61) ??F ?Collect Date: ? 05/12/2007 Location: ? [facility] ? Receive Date: ? 05/16/2007 Provider: ?WINNIE TOUSSAINT MD Copy to: ? Specimen/Source: ?ThinPrep Pap Test, Vagina/Cervix/Endo cervix, processed on [employer] ThinPrep Imaging System, with manual evaluation Last Menstrual Period: ? Other: ? Additional clinical information: Benign Pap Hx. ? SPECIMEN ADEQUACY ? Satisfactory for Evaluation - assessment of transformation zone component not applicable ( e.g. atrophy, vaginal sample, hysterectomy) GENERAL CATEGORIZATION ? Negative for Intraepithelial Lesion or Malignancy ? Document reviewed and electronically signed by: ? RYANNE Fan(ASCP) ? Report Date: ??05/23/2007 09:24 End of Report [facility]ASQUE[facility] 05/12/2007 05/16/2007 Winnie Toussaint MD PATHOLOGY ORDERABLES Performing Organization Address City/State/[facility] Co de Phone Number AUGUSTIN VASQUEZ [address] [place] [address] documented in this encounter Visit Diagnoses Not on filedocumented in this encounter
--- OUTSIDE RECORDS SUMMARY | 2024-02-21 01:28 | XMS_ITS | Encounter Summary ---
Author Organization [facility] Address [address] [place] [address] Care Team Providers Care Volcanology Professor Name Role Phone Unavailable Primary Care Provider Unavailabl e Encounter Details Date Type Department Care Team (Late st Contact Info) Description 10/26/2000 Results Only [facility] [address] [place] [address] Sites, Cindy Alarcon MD Social History Tobacco Use Types Packs/Day Years Used Date Smoking Tobacco: Never Assessed Sex and Gender Information Value Date Recorded Sex Assigned at Not on file Gender Identity Not on file Sexual Orientation Not on file documented as of this encounter Plan of Treatment Not on file documented as of this encounter Procedures Procedure Name Priority Date/Time Associated Diagnosis Comments MISCELLANEOUS TEST, HART Routine 10/26/2000 10:54 EST MISCELLANEOUS TEST, HART Routine 10/26/2000 10:53 EST MISCELLANEOUS TEST, HART Routine 10/26/2000 10:52 EST documented in this encounter Results * MISCELLANEOUS TEST (10/26/2000 10:54 EST) Test Name FREE FATTY ACIDS [facility] Result 349 uEq/L 8280 24 MO CLAMP 08/25/99 [facility] Ref Range <[id number] 24 MO CLAMP 08/25/99 [facility] Ref Lab [place] reference lab [id number] 24 MO CLAMP 08/25/99 [facility] 10/26/2000 10:5 4 EST 10/26/2000 10:54 EST Cindy Luo MD CHEMISTRY & BLOOD G ORDERABLES Performing Organization Address City/[facility] Co de Phone Number [facility] [address] [place] [address] * MISCELLANEOUS TEST (10/26/2000 10:53 EST) Test Name FREE FATTY ACIDS [facility] Result 477 uEq/L 8280 12 MO CLAMP 08/21/98 [facility] Ref Range <[id number] 12 MO CLAMP 08/21/98 [facility] Ref Lab [place] reference lab [id number] 12 MO CLAMP 08/21/98 [facility] 10/26/2000 10:5 3 EST 10/26/2000 10:53 EST Cindy Luo MD CHEMISTRY & BLOOD G ORDERABLES Performing Organization Address [facility] Co de Phone Number [facility] [address] [place] [address] * MISCELLANEOUS TEST (10/26/2000 10:52 EST) Test Name FREE FATTY ACIDS [facility] Result 360 uEq/L 8280 6 MO CLAMP 02/05/98 [facility] Ref Range <[id number] 6 MO CLAMP 02/05/98 [facility] Ref Lab [place] reference lab [id number] 6 MO CLAMP 02/05/98 [facility] 10/26/2000 10:5 2 EST 10/26/2000 10:52 EST Cindy Luo MD CHEMISTRY & BLOOD G ORDERABLES Performing Organization Address City/[facility] Co de Phone Number [facility] [address] [place] [address] documented in this encounter Visit Diagnoses Not on filedocumented in this encounter
--- OUTSIDE RECORDS SUMMARY | 2024-02-21 01:28 | XMS_ITS | Encounter Summary ---
[facility] [place] [address] Care Team Providers Care Warrant Server Name Role Phone Catracho Vernon MD Primary Care Provider [phone] Encounter Details Date Type Department Care Team (Latest Contact Info) Description 01/13/2022 Unscheduled Encounter Hematology/Oncology at [address] [phone] [facility] [place] [address] Thrombocytopenia Social History Tobacco Use Types Packs/Day Years Used Date Smoking Tobacco: Never Smokeless Tobacco: Never Sex and Gender Information Value Date Recorded Sex Assigned at Not on file Gender Identity Female 08/21/2020 5:05 PM EST Sexual Orientation Not on file documented as of this encounter Progress Notes * Mariaelena Solomon RD - 01/13/2022 2:50 PM EDT [facility] Initial Assessment Patient Name: Shanita Noel Nolan Diagnosis: Thrombocytopenia Referred by: Dr. Mcnair Assessment: HPI Patient Active Problem List Diagnosis Code ??? Healthcare maintenance Z00.00 ??? Nevus D22.9 ??? Thrombocytopenia D69.6 ??? Spinal stenosis at L4-L5 level M48.061 Estimated body mass index is 29.06 kg/m?? as calculated from the following: Height as of an earlier encounter on 01/13/22: 160 cm (5' 2.99). Weight as of an earlier encounter on 01/13/22: 74.4 kg (164 lb). Wt Readings from Last 3 Encounters: 01/13/22 74.4 kg (164 lb) 07/15/21 70.3 kg (155 lb) 04/15/21 72.1 kg (159 lb) 11# gain in past 6 months. Medications: HCTZ, turmeric, vitamin D2, Coenzyme Q-10 Patient previously treated with rituximab for thrombocytopenia. Not currently on active treatment. Labs on 12/30: WBC 5.99, H/H 13.7/41.8, platelet 107, ANC 3.32 Nutrition Screen 01/15/2022 01/13/2022 Reason for assessment New consult - Total MST Score - 0 Functional Status 01/15/2022 Appetite Similar compared to usual intake Patient reports good appetite and no difficulties with eating. Nutrition Note Breakfast: avocado toast, 1 piece Lunch: Hard boiled egg, low fat cottage cheese, salad Dinner: Too tired to make them, ww and regular pasta with chicken sausage and salad Snacks: Trying to eat almonds, has to count them out. Pretzels or corn chips, though not allowing herself to have these lately Beverages: water, coffee or tea in morning, very rare etoh Visited with patient after her f/u visit with Dr. Mcnair today regarding her recent weight gain. Patient is wanting to lose some weight. She says she typically puts weight on in the winter when sheeats more desserts but has been having trouble losing this weight in the warmer months since she has been less active recently. She has not been walking as much as she used to because after doing so for more than 15 minutes, her back/sciatica pain is too much. She is doing strengthening exercises twice a week at a local exercise program. [facility] has an exercise program that she also wants to sign up for. Patient says she seems to better with these structured classes. Patient's has ALS and tends to keep more treats at home for him, but these are tempting for her too. She successfully lost about 15 pounds in the past, but regained this. Otherwise, she has not had repeated weight cycling. Nutrition Diagnosis 01/15/2022 Problems Overweight/obesity related to decreased exercise and higher intake in winter as evidenced by 11# gain in the past 6 months and BMI 29.06. 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 Discussed possible goals of drinking 2 L water per day, and increasing fruit and vegetable intake (5 servings/day), as well as enrolling in exercise class at [facility]. Encouraged her to do exercise that is enjoyable. * Limit weight loss to 1-2 pounds per week to avoid losing muscle. Reasonable goal would be 8-16# weight loss. * Encouraged limiting salt and processed food intake for hypertension. Again, increase fruits and vegetable consumption. Provided handout * Briefly discussed intuitive eating and provided handout Monitoring and Evaluation: Will follow up with Shanita as needed to re-evaluate. I have provided her with my card and contact information should she have any questions in the meantime. Thank you for this consult. Mariaelena Solomon RD documented in this encounter Plan of Treatment Upcoming Encounters Date Type Department Care Team (Late st Contact Info) Description 02/22/2024 1:00 PM EDT Office Visit Hematology/Oncology at [address] [phone] Carrie Bruno MD [facility] HEMATOLOGY/[place] [address] Oliva Mccabe, ABDULLAIH [facility] HEMATOLOGY/[place] [address] 09/11/2024 1:00 PM EST Office Visit Dermatology at [facility] [address] [place] [address] Lizeth Hallman MD [facility] [address] [address] documented as of this encounter Visit Diagnoses Diagnosis Thrombocytopenia Thrombocytopenia, unspecified documented in this encounter Care Teams Warrant Server Relationship Specialty Start Date End Date Catracho Vernon MD [address] [place] [address] PCP - General Family Medicine 04/21/18 documented as of this encounter
--- OUTSIDE RECORDS SUMMARY | 2024-02-21 01:28 | XMS_ITS | Encounter Summary ---
Author Organization [facility] [place] [address] Care Team Providers Care Cardiovascular Operating Room Nurse Name Role Phone Catracho Vernon MD Primary Care Provider [phone] Encounter Details Date Type Department Care Team (Late st Contact Info) Description 01/13/2022 Notes Only Hematology/Oncology at [address] [phone] Leticia Bennett INDUSTRIAL RELATIONS WORKER OFFICE OF CARE MANAGEMENT Social History Tobacco Use Types Packs/Day Years Used Date Smoking Tobacco: Never Smokeless Tobacco: Never Sex and Gender Information Value Date Recorded Sex Assigned at Not on file Gender Identity Female 08/21/2020 5:05 PM EST Sexual Orientation Not on file documented as of this encounter Progress Notes * Leticia Bennett MSW - 01/13/2022 3:10 PM EDT Request from Jackie Salinas RN to meet with pt to talk about completing her advance directive. Met with pt during her clinic visit. Pt indicated she and her had attempted to get their affairs in order. They have met severaltimes with an attorney lawyer but due to differing opinions on things they have not completed this work. Part of this was to complete their advance directives. There is a bit of urgency now that her husbandhas been diagnosed with a serious illness. Pt want to get these things done. Their children should be coming home in January and suggested that might be a good opportunity to set some time for a family meeting to discuss these issues. Gave pt an updated advance directive form. Reviewed the document with her. Suggested she even talk with her PCP about some of her questions/concerns and how to express her wishes. She needs to consider who she wants as her agents given at some point her may not be able to be in that role. Her son is in [place], a daughter is out of the country and her youngest daughter does not want toparticularly talk about this. INDUSTRIAL RELATIONS WORKER suggested she make a plan for some conversation with her and children. Suggested makinga list of what needs to be done. Offered to be a resource her for continued discussion and assistance in completing her directive. Offered support. Brief assessment Supportive Counseling Advance care planning documented in this encounter Plan of Treatment Upcoming Encounters Date Type Department Care Team (Late st Contact Info) Description 02/22/2024 1:00 PM EDT Office Visit Hematology/Oncology at [address] [phone] Carrie Bruno MD [facility] DR HEMATOLOGY/[place] [address] Oliva Mccabe APRN [facility] HEMATOLOGY/[place] [address] 09/11/2024 1:00 PM EST Office Visit Dermatology at [facility] [address] [place] [address] Lizeth Hallman MD [facility] [place] [address] documented as of this encounter Visit Diagnoses Not on filedocumented in this encounter Care Teams Cardiovascular Operating Room Nurse Relationship Specialty Start Date End Date Catracho Vernon MD [facility] [place] [place] [phone] PCP - General Family Medicine 04/21/18 documented as of this encounter
--- OUTSIDE RECORDS SUMMARY | 2024-02-21 01:28 | XMS_ITS | Encounter Summary ---
Author Organization [facility] Address [facility] Chance [place] [address] Care Team Providers Care Blind Aide Name Role Phone Catracho Vernon MD Primary Care Provider [phone] Encounter Details Date Type Department Care Team (Latest Contact Info) Description 12/13/2022 Travel Social History Tobacco Use Types Packs/Day [...] 1:00 PM EDT Office Visit Hematology/Oncology at [address] [phone] Carrie Bruno MD [facility] DR HEMATOLOGY/[place] [address] Oliva Mccabe, RETAIL HELPER [facility] HEMATOLOGY/[place] [address] 09/11/2024 1:00 PM EST Office Visit Dermatology at [facility] [address] [place] [phone] Lizeth Hallman MD [facility] [place] [address] documented as of this encounter Visit Diagnoses Not on filedocumented in this encounter Care Teams Blind Aide Relationship Specialty Start Date End Date Catracho Vernon MD [address] [place] [address] PCP - General Family Medicine 04/21/18 documented as of this encounter
--- OUTSIDE RECORDS SUMMARY | 2024-02-21 01:28 | XMS_ITS | Clinical Summary ---
Author Organization [facility] Address [address] [place] [address] Care Team Providers Care Presentation Designer Name Role Phone Catracho Pink MD Primary Care Provider [phone] Social History Tobacco Use Types Packs/Day Years Used Date Smoking Tobacco: Never Assessed Sex and Gender Information Value Date Recorded Sex Assigned at Not on file Gender Identity Not on file Sexual Orientation Not on file Plan of Treatment Health Maintenance Due Date Last Done Comments RSV Immunization ( o r 60+ Years) (1 - 1-dose 60+ series) 2003 Fall Risk Screening 2008 COVID-19 Vaccine ( season) 2023 Care Teams Presentation Designer Relationship Specialty Start Date End Date Catracho Pink MD PCP - General 06/22/15
--- OUTSIDE RECORDS SUMMARY | 2024-02-21 01:28 | XMS_ITS | Encounter Summary ---
Author Organization [facility] [place] [address] Care Team Providers Care Rhic Systems Safety Engineer Name Role Phone Catracho Vernon MD Primary Care Provider [phone] Reason for Visit * Reason Onset Date Comments Labs Only 09/08/2021 Lab Tracking Encounter Details Date Type Department Care Team (Late st Contact Info) Description 09/08/2021 Telephone Hematology/Oncology at [address] [phone] Bird Kohli, RN Labs Only [...] Telephone Encounter - Bird Kohli RN - 09/08/2021 8:45 AM EST LAB TRACKING Shanita Francisco : 1945 DIAGNOSIS: ITP LABS ORDERED: cbc/diff every 8 weeks at [facility], also needs CMP if getting IVIG [...] in in agreement with plan. Stacey Bhatt LNA sent labs to review to reports okay to stretch lab track out to next time she comes for FUV, due in December 2021. Discussed with Shanita- she is comfortable with stretching out to 2 months.Labs again first week of October. She is in agreement with plan. 06/08/21 00:00 07/06/21 00:00 08/03/21 00:00 09/07/21 00:00 WBC 9.01 (E) 6.25 (E) 5.06 (E) 5.52 (E) Hemoglobin 14.0 (E) 14.1 (E) 14.5 (E) 14.2 (E) Hematocrit 42.2 (E) 43.1 (E) 44.2 (E) 43.0 (E) MCV 90.9 (E) 91.3 (E) Platelets 131 (E) 124 (E) 122 (E) 125 (E) Neutr Abs (ANC) 6.46 (E) 4.31 (E) 3.23 (E) 3.32 (E) BUN 23 (E) Creatinine 0.9 (E) (E): External lab result documented in this encounter Plan of Treatment Upcoming Encounters Date Type Department Care Team (Late st Contact Info) Description 02/22/2024 1:00 PM EDT Office Visit Hematology/Oncology at [address] [phone] Carrie Bruno MD [facility] DR HEMATOLOGY/[place] [address] Oliva Mccabe, MOLD FILLING OPERATOR [facility] HEMATOLOGY/[place] [address] 09/11/2024 1:00 PM EST Office Visit Dermatology at [facility] [address] [place] [phone] Lizeth Hallman MD [facility] DR [address]TA [place] [address] documented as of this encounter Procedures Procedure Name Priority Date/Time Associated Diagnosis Comments CBC (WITH DIFF) Routine 09/07/2021 COMPREHENSIVE METABOLIC PANEL (NON-FASTING) Routine 09/07/2021 documented in this encounter Results * CBC (with Diff) (09/07/2021) WBC 5.52 Hemoglobin 14.2 Hematocrit 43.0 Platelets 125 Neutr Abs (ANC) 3.32 Blood Historical Provider HEMATOLOGY ORDERA BLES * Comprehensive metabolic panel (non-fasting) (09/07/2021) BUN 23 Creatinine 0.9 Blood Historical Provider CHEMISTRY ORDERAB LES documented in this encounter Visit Diagnoses Not on filedocumented in this encounter Care Teams Rhic Systems Safety Engineer Relationship Specialty Start Date End Date Catracho Vernon MD [facility] [place] [address] PCP - General Family Medicine 04/21/18 documented as of this encounter
--- OUTSIDE RECORDS SUMMARY | 2024-02-21 01:28 | XMS_ITS | Encounter Summary ---
Author Organization [facility] [place] [address] Care Team Providers Care Manager Lean Name Role Phone Catracho Vernon MD Primary Care Provider [phone] Reason for Visit * Reason Onset Date Comments Labs Only 05/05/2022 Lab Tracking Encounter Details Date Type Department Care Team (Late st Contact Info) Description 05/05/2022 Telephone Hematology/Oncology at [address] [phone] Bird Kohli, RN Labs Only [...] Telephone Encounter - Bird Kohli RN - 05/05/2022 8:43 AM EDT LAB TRACKING Shanita Francisco : 1945 DIAGNOSIS: ITP LABS ORDERED: cbc/diff every 8 weeks at [facility] MEDICATIONS: 07/16/20- dexamethasone 40 IV day one then daily for 3 days 08/05/20-08/08/20 dexamethasone 40 mg po x4 days IVIG- 12/15,12/16,01/08, 01/09 Rituxan to start 01/16- 4 doses given Pred 40 mg x4 days 02/19/21-02/22/21 Assessment/Plan: Labs sent to provider for review. Continue CBC diff every 2 months. Next due 07/05/22. Pt is in agreement with plan. She will call sooner if any changes or concerns. 12/30/21 00:00 03/01/22 00:00 05/03/22 00:00 WBC 5.99 (E) 5.37 (E) 5.70 (E) Hemoglobin 13.7 (E) 14.1 (E) 14.1 (E) Hematocrit 41.8 (E) 43.2 (E) 42.6 (E) Platelets 107 (E) 142 (E) 126 (E) Neutr Abs (ANC) 3.32 (E) 3.31 (E) 3.63 (E) (E): External lab result documented in this encounter Plan of Treatment Upcoming Encounters Date Type Department Care Team (Late st Contact Info) Description 02/22/2024 1:00 PM EDT Office Visit Hematology/Oncology at [address] [phone] Carrie Bruno MD [facility] DR HEMATOLOGY/[place] [address] Oliva Mccabe APRN [facility] HEMATOLOGY/[place] [address] 09/11/2024 1:00 PM EST Office Visit Dermatology at [place] [address] [place] [phone] Lizeth Hallman MD [facility] [address] [place] [address] documented as of this encounter Procedures Procedure Name Priority Date/Time Associated Diagnosis Comments CBC (WITH DIFF) Routine 05/03/2022 documented in this encounter Results * CBC (with Diff) (05/03/2022) WBC 5.70 Hemoglobin 14.1 Hematocrit 42.6 Platelets 126 Neutr Abs (ANC) 3.63 Blood Historical Provider MD HEMATOLOGY ORDERA BLES documented in this encounter Visit Diagnoses Not on filedocumented in this encounter Care Teams Manager Lean Relationship Specialty Start Date End Date Catracho Vernon MD [address] [place] [address] PCP - General Family Medicine 04/21/18 documented as of this encounter
--- OUTSIDE RECORDS SUMMARY | 2024-02-21 01:28 | XMS_ITS | Encounter Summary ---
Author Organization [facility] [place] [address] Care Team Providers Care Political Science Professor Name Role Phone Catracho Vernon MD Primary Care Provider [phone] Reason for Visit * Reason Onset Date Comments Labs Only 04/05/2023 Lab Tracking Encounter Details Date Type Department Care Team (Late st Contact Info) Description 04/05/2023 Telephone Hematology/Oncology at [address] [phone] Bird Kohli, RN Labs Only [...] Telephone Encounter - Bird Kohli RN - 04/05/2023 12:12 PM EDT LAB TRACKING Shanita Francisco : 1945 DIAGNOSIS: ITP LABS ORDERED: cbc/diff every 8 weeks at [facility] MEDICATIONS: 07/16/20- dexamethasone 40 IV day one then daily for 3 days 08/05/20-08/08/20 dexamethasone 40 mg po x4 days IVIG- 12/15,12/16,01/08, 01/09 Rituxan to start 01/16- 4 doses given Pred 40 mg x4 days 02/19/21-02/22/21 Assessment/Plan: Labs reviewed with Provider. Continue CBC diff every 2 months. She will call sooner if any changes or concerns. Pt is in agreement with plan. 01/31/23 00:00 04/05/23 00:00 WBC 6.56 (E) 6.59 (E) RBC 4.30 (E) Hemoglobin 14.2 (E) 12.9 (E) Hematocrit 42.4 (E) 39.1 (E) MCV 90.0 (E) Platelets 114 (E) 116 (E) Neutr Abs (ANC) 4.13 (E) 4.35 (E) (E): External lab result documented in this encounter Plan of Treatment Upcoming Encounters Date Type Department Care Team (Late st Contact Info) Description 02/22/2024 1:00 PM EDT Office Visit Hematology/Oncology at [address] [phone] Carrie Bruno MD [facility] DR HEMATOLOGY/[place] [address] Oliva Mccabe, FACILITIES MAINTENANCE ASSISTANT [facility] DR HEMATOLOGY/[place] [address] 09/11/2024 1:00 PM EST Office Visit Dermatology at [place] [address] [place] [address] Lizeth Hallman MD [facility] [address] [place] [address] documented as of this encounter Procedures Procedure Name Priority Date/Time Associated Diagnosis Comments CBC (WITH DIFF) Routine 04/05/2023 documented in this encounter Results * CBC (with Diff) (04/05/2023) WBC 6.59 RBC 4.30 Hemoglobin 12.9 Hematocrit 39.1 Platelets 116 Neutr Abs (ANC) 4.35 Blood Historical Provider HEMATOLOGY ORDERA BLES documented in this encounter Visit Diagnoses Not on filedocumented in this encounter Care Teams Political Science Professor Relationship Specialty Start Date End Date Catracho Vernon MD [address] [place] [phone] PCP - General Family Medicine 04/21/18 documented as of this encounter
--- OUTSIDE RECORDS SUMMARY | 2024-02-21 01:28 | XMS_ITS | Encounter Summary ---
Author Organization [facility] [place] [address] Care Team Providers Care Concrete Carpenter Name Role Phone Catracho Vernon MD Primary Care Provider [phone] Reason for Visit * Reason Onset Date Comments Labs Only 03/03/2022 Lab Tracking Encounter Details Date Type Department Care Team (Late st Contact Info) Description 03/03/2022 Telephone Hematology/Oncology at [address] [phone] Bird Kohli, RN Labs [...] Telephone Encounter - Bird Kohli RN - 03/03/2022 9:04 AM EDT LAB TRACKING Shanita Francisco : 1945 DIAGNOSIS: ITP LABS ORDERED: cbc/diff every [address] [facility] MEDICATIONS: 07/16/20- dexamethasone 40 IV day one then daily for 3 days 08/05/20-08/08/20 dexamethasone 40 mg po x4 days IVIG- 12/15,12/16,01/08, 01/09 Rituxan to start 01/16- 4 doses given Pred 40 mg x4 days 02/19/21-02/22/21 Assessment/Plan: Labs sent to provider for review. Continue CBC diff every 2 months. Next due 05/03/22. Pt is in agreement with plan. She will call sooner if any changes or concerns. 11/02/21 00:00 12/30/21 00:00 03/01/22 00:00 WBC 5.54 (E) 5.99 (E) 5.37 (E) Hemoglobin 13.8 (E) 13.7 (E) 14.1 (E) Hematocrit 41.3 (E) 41.8 (E) 43.2 (E) Platelets 121 (E) 107 (E) 142 (E) Neutr Abs (ANC) 3.43 (E) 3.32 (E) 3.31 (E) (E): External lab result documented in this encounter Plan of Treatment Upcoming Encounters Date Type Department Care Team (Late st Contact Info) Description 02/22/2024 1:00 PM EDT Office Visit Hematology/Oncology at [address] [phone] Carrie Bruno MD [facility] DR HEMATOLOGY/[place] [address] Oliva Mccabe APRN [facility] HEMATOLOGY/[place] [address] 09/11/2024 1:00 PM EST Office Visit Dermatology at [place] [address] [place] [phone] Lizeth Hallman MD [facility] DR [address] [place] [address] documented as of this encounter Procedures Procedure Name Priority Date/Time Associated Diagnosis Comments CBC (WITH DIFF) Routine 03/01/2022 documented in this encounter Results * CBC (with Diff) (03/01/2022) WBC 5.37 Hemoglobin 14.1 Hematocrit 43.2 Platelets 142 Neutr Abs (ANC) 3.31 Blood Historical Provider MD HEMATOLOGY ORDERA BLES documented in this encounter Visit Diagnoses Not on filedocumented in this encounter Care Teams Concrete Carpenter Relationship Specialty Start Date End Date Catracho Vernon MD [address] [place] [address] PCP - General Family Medicine 04/21/18 documented as of this encounter
--- OUTSIDE RECORDS SUMMARY | 2024-02-21 01:29 | XMS_ITS | Encounter Summary ---
Author Organization [facility] [place] [address] Care Team Providers Care Photogrammetrist Name Role Phone Catracho Vernon MD Primary Care Provider [phone] Reason for Visit * Reason Onset Date Comments Labs Only 01/12/2021 lab tracking Encounter Details Date Type Department Care Team (Late st Contact Info) Description 01/12/2021 Telephone Hematology Oncology at [address] [phone] Madison Corrales, RN Labs Only (lab tracking) Social History Tobacco Use Types Packs/Day Years Used Date Smoking Tobacco: Never Smokeless Tobacco: Never Sex and Gender Information Value Date Recorded Sex Assigned at Not on file Gender Identity Female 08/21/2020 5:05 PM EST Sexual Orientation Not on file documented as of this encounter Miscellaneous Notes * Telephone Encounter - Madison Corrales RN - 01/12/2021 11:53 AM EDT LAB TRACKING Torrey Conteh : 1945 DIAGNOSIS: ITP LABS ORDERED: cbc/diff Weekly at [facility], also needs CMP if getting IVIG MEDICATIONS: 07/16/20- dexamethasone 40 IV day one then daily for 3 days 08/05/20-08/08/20 dexamethasone 40 mg po daily Assessment/Plan: Labs sent to Dr. Bruno and Manfred Bhatt APRN Got IVIG 01/08 and 01/09. Then will start weekly Rituxan x4 on 01/16, then 01/26, then 02/03, and 02/11 (not perfectly weekly as she is going OOT for a week on 01/17). Labs again this week. Next labs after that 01/26 as she will be out of town. Then Tuesday ongoing. Results for TORREY CONTEH ( ) as of 01/12/2021 11:56 12/17/2020 00:00 12/23/2020 00:00 01/06/2021 00:00 01/12/2021 00:00 WBC 4.65 4.12 4.12 3.44 Hemoglobin 13.6 14.8 13.7 14.1 Hematocrit 40.6 45.1 41.3 42.3 MCV 89.2 89.8 88.6 Platelets 85 81 28 (UF) 91 Neutr Abs (ANC) 2.87 2.29 2.26 1.92 BUN 24 Creatinine 1.0 documented in this encounter Plan of Treatment Upcoming Encounters Date Type Department Care Team (Late st Contact Info) Description 02/22/2024 1:00 PM EDT Office Visit Hematology/Oncology at [address] [phone] Carrie Bruno MD [facility] DR HEMATOLOGY/[place] [address] Oliva Mccabe APRN [facility] DR HEMATOLOGY/[place] [address] 09/11/2024 1:00 PM EST Office Visit Dermatology at [facility] [address] [place] [phone] Lizeth Hallman MD [facility] DR [address] [place] [address] documented as of this encounter Procedures Procedure Name Priority Date/Time Associated Diagnosis Comments CBC (WITH DIFF) Routine 01/12/2021 COMPREHENSIVE METABOLIC PANEL (NON-FASTING) Routine 01/12/2021 documented in this encounter Results * Comprehensive metabolic panel (non-fasting) (01/12/2021) BUN 24 Creatinine 1.0 Blood 01/12/2021 Carrie Bruno MD CHEMISTRY ORDERA BLES * CBC (with Diff) (01/12/2021) WBC 3.44 Hemoglobin 14.1 Hematocrit 42.3 Platelets 91 Neutr Abs (ANC) 1.92 Blood 01/12/2021 Carrie Bruno MD HEMATOLOGY ORDER JAMIE documented in this encounter Visit Diagnoses Not on filedocumented in this encounter Care Teams Photogrammetrist Relationship Specialty Start Date End Date Catracho Vernon MD [address] [place], [place] [address] [address] PCP - General Family Medicine 04/21/18 documented as of this encounter
--- OUTSIDE RECORDS SUMMARY | 2024-02-21 01:29 | XMS_ITS | Encounter Summary ---
Author Organization [facility] Address [facility] [place] [address] Care Team Providers Care Folder Gluer Operator Name Role Phone Catracho Vernon MD Primary Care Provider [phone] Reason for Visit * Reason Comments IV Medication IVIG * Treatment/Therapy Plan Authorization (Routine) - Pending Review Specialty Diagnoses / Procedures Referred By Edson evans Referred To Contact Diagnoses Thrombocytopenia Carrie Bruno MD [facility] HEMATOLOGY/[place] [address] Referral ID Status Reason Start Date Expiration Date V isits Requested Visits Authorized [id number] Pending Review 09/17/2020 09/17/2021 99 99 Encounter Details Date Type Department Care Team (Late st Contact Info) Description 01/08/2021 8:00 AM EDT Infusion Hematology Oncology at [address] [phone] Thrombocytopenia Social History Tobacco Use Types Packs/Day Years Used Date Smoking Tobacco: Never Smokeless Tobacco: Never Sex and Gender Information Value Date Recorded Sex Assigned at Not on file Gender Identity Female 08/21/2020 5:05 PM EST Sexual Orientation Not on file documented as of this encounter Last Filed Vital Signs Vital Sign Reading Time Taken Comments Blood Pressure 161/66 01/08/2021 1:16 PM EDT Pulse 55 01/08/2021 1:16 PM EDT Temperature 35.6 ??C (96 ??F) 01/08/2021 10:55 AM EDT Respiratory Rate 16 01/08/2021 12:11 PM EDT Oxygen Saturation 98% 01/08/2021 1:16 PM EDT Inhaled Oxygen Concentration - - Weight 72.2 kg (159 lb 3.2 oz) 01/08/2021 8:09 A M EDT Height 160 cm (5' 2.99) 01/08/2021 8:09 AM EDT Body Mass Index 28.21 01/08/2021 8:09 AM EDT documented in this encounter Progress Notes * Madison Corrales RN - 01/08/2021 8:00 AM EDT INFUSION THERAPY ADMINISTRATION NOTES DIAGNOSIS: ITP REASON FOR VISIT: Second time IVIG infusion SUBJECTIVE Shanita Noel Francisco offers no complaints. Seen in clinic yesterday. OBJECTIVE LAB DATA: From 01/06/21: WBC 4.12, HGB 13.7, HCT 41.3, PLT 28, ANC 2.26 IV ACCESS: PIV in right hand. Left in place for tomorrow. REACTIONS (DESCRIPTION, TIME, INTERVENTION AND EFFECTIVENESS) none ASSESSMENT Shanita Noel Francisco was awake, alert and tolerated treatment well. IVIG was given at second time rate with rate capped at 1.98ml/kg/hr per IVIG calculator (due to agegreater than 65). PLAN Return to clinic tomorrow. documented in this encounter Plan of Treatment Upcoming Encounters Date Type Department Care Team (Late st Contact Info) Description 02/22/2024 1:00 PM EDT Office Visit Hematology/Oncology at [address] [phone] Carrie Bruno MD [facility] DR HEMATOLOGY/[place] [address] Oliva Mccabe APRN [facility] HEMATOLOGY/[place] [address] 09/11/2024 1:00 PM EST Office Visit Dermatology at [facility] [address] [place] [phone] Lizeth Hallman MD [facility] [place] [address] documented as of this encounter Visit Diagnoses Diagnosis Thrombocytopenia Thrombocytopenia, unspecified documented in this encounter Administered Medications Inactive Administered Medications - up to 3 most recent administrations Medication Order [facility] Action Action Date Dose Rate Site acetaminophen (Tylenol) tablet 650 mg 650 mg, Oral, ONCE, 1 dose, On Lucille 01/08/21 at 0830, Routine Given 01/08/2021 8:28 AM EDT 650 mg diphenhydrAMINE (Benadryl) capsule 25 mg 25 mg, Oral, ONCE, 1 dose, On Lucille 01/08/21 at 0830, Routine Given 01/08/2021 8:28 AM EDT 25 mg immune globulin (PRIVIGEN) (100 mg/mL) 10 g/100 mL infusion 10 g 10 g, Intravenous, ONCE, 1 dose, On Lucille 01/08/21 at 0845, Total Dose: 50g [Dispense: 40g + 10g vials] Administer at room temperature using a separate line. Do not piggyback. To calculate the initial rate and subsequent rate adjustments, click on the link (in the reference section) to the Intravenous Immune Globulin (IVIG) Dose Rate Calculator Adult Job Aid and input the IDEAL body weight which is available in the ordered dose field in the MAR. Increase the rate every 30 minutes as outlined in the Intravenous Immune Globulin (IVIG) Dose Rate Calculator Adult Job Aid. If actual body weight (ABW) is less than ideal body weight (IBW), use actual body weight for calculating dose Assess and Monitor: Obtain baseline VS followed by every 15 min for the first hour after starting the infusion, 15 minutes after every rate change, hourly until the end of the infusion and at the end of the infusion. The maximum rate of administration is ordered by the prescriber in the order question. Adverse reactions are typically rate based. If side effects occur, page team. Rate may be reduced or infusion paused until symptoms subside, then restarted. Assess for vaccine administration: Do not administer if patient has had live virus vaccine within past 3 months (Zoster, Varicella or MMR). Notify provider., Routine, As of January 2021 IVIG supply has stabilized; the below listed indications are approved for use via P&T. All other indications require approval by P&T Chair or On-Call Ware Server. *Idiopathic thrombocytopenic purpura *, What is the maximum rate of administration? 0.04 mL/kg/min (for idiopathic thrombocytopenia or any patient with renal insufficiency or any patient greater than or equal to 65 years old) New Bag 01/08/2021 8:48 AM EDT 10 g 63 mL/hr immune globulin (PRIVIGEN) (100 mg/mL) 40 g/400 mL infusion 40 g 40 g, Intravenous, ONCE, 1 dose, On Lucille 01/08/21 at 0845, Total Dose: 50g [Dispense: 40g + 10g vials] Administer at room temperature using a separate line. Do not piggyback. To calculate the initial rate and subsequent rate adjustments, click on the link (in the reference section) to the Intravenous Immune Globulin (IVIG) Dose Rate Calculator Adult Job Aid and input the IDEAL body weight which is available in the ordered dose field in the MAR. Increase the rate every 30 minutes as outlined in the Intravenous Immune Globulin (IVIG) Dose Rate Calculator Adult Job Aid. If actual body weight (ABW) is less than ideal body weight (IBW), use actual body weight for calculating dose Assess and Monitor: Obtain baseline VS followed by every 15 min for the first hour after starting the infusion, 15 minutes after every rate change, hourly until the end of the infusion and at the end of the infusion. The maximum rate of administration is ordered by the prescriber in the order question. Adverse reactions are typically rate based. If side effects occur, page team. Rate may be reduced or infusion paused until symptoms subside, then restarted. Assess for vaccine administration: Do not administer if patient has had live virus vaccine within past 3 months (Zoster, Varicella or MMR). Notify provider., Routine, As of January 2021 IVIG supply has stabilized; the below listed indications are approved for use via P&T. All other indications require approval by P&T Chair or On-Call Ware Server. *Idiopathic thrombocytopenic purpura *, What is the maximum rate of administration? 0.04 mL/kg/min (for idiopathic thrombocytopenia or any patient with renal insufficiency or any patient greater than or equal to 65 years old) New Bag 01/08/2021 9:54 AM EDT 40 g documented in this encounter Care Teams Folder Gluer Operator Relationship Specialty Start Date End Date Catracho Vernon MD [address] [place] [address] PCP - General Family Medicine 04/21/18 documented as of this encounter
--- OUTSIDE RECORDS SUMMARY | 2024-02-21 01:29 | XMS_ITS | Encounter Summary ---
Author Organization [facility] [place] [address] Care Team Providers Care Carpenters Name Role Phone Catracho Vernon MD Primary Care Provider [phone] Reason for Visit * Reason Onset Date Comments Labs Only 04/28/2021 Lab Tracking Encounter Details Date Type Department Care Team (Late st Contact Info) Description 04/28/2021 Telephone Hematology/Oncology at [address] [phone] Bird Kohli, RN Labs Only [...] Telephone Encounter - Bird Kohli RN - 04/28/2021 8:56 AM EDT LAB TRACKING Torrey Conteh : 1945 DIAGNOSIS: ITP LABS ORDERED: cbc/diff every other week at [facility], also needs CMP if [...] now, she in in agreement with plan. Spoke with Torrey, she would like to push lab draw out to every 3 weeks and see how she does. CBC again 05/19/21. She will call sooner with any changes or concerns. Results for TORREY CONTEH ( ) as of 04/28/2021 08:57 Ref. Range 03/17/2021 00:00 03/30/2021 00:00 04/14/2021 00:00 04/27/2021 00:00 WBC Unknown 5.63 6.19 5.52 4.68 Hemoglobin Unknown 13.7 15.3 14.3 13.9 Hematocrit Unknown 42.3 45.8 43.4 42.4 MCV Unknown 90.4 91.9 91.6 Platelets Unknown 143 [address] % Unknown 1.6 Neutr Abs (ANC) Unknown 3.64 4.56 3.57 2.79 BUN Unknown 17 Creatinine Unknown 0.82 LDH Unknown 207 documented in this encounter Plan of Treatment Upcoming Encounters Date Type Department Care Team (Late st Contact Info) Description 02/22/2024 1:00 PM EDT Office Visit Hematology/Oncology at [address] [phone] Carrie Bruno MD [facility] HEMATOLOGY/[place] [address] Oliva Mccabe APRN [facility] HEMATOLOGY/[place] [address] 09/11/2024 1:00 PM EST Office Visit Dermatology at [facility] [address] [place] [phone] Lizeth Hallman MD [facility] [place] [address] documented as of this encounter Procedures Procedure Name Priority Date/Time Associated Diagnosis Comments CBC (WITH DIFF) Routine 04/27/2021 documented in this encounter Results * CBC (with Diff) (04/27/2021) WBC 4.68 Hemoglobin 13.9 Hematocrit 42.4 MCV 91.6 Platelets 129 Neutr Abs (ANC) 2.79 Blood Historical Provider HEMATOLOGY ORDERA BLES documented in this encounter Visit Diagnoses Not on filedocumented in this encounter Care Teams Carpenters Relationship Specialty Start Date End Date Catracho Vernon MD [address] [place] [address] PCP - General Family Medicine 04/21/18 documented as of this encounter
--- OUTSIDE RECORDS SUMMARY | 2024-02-21 01:29 | XMS_ITS | Encounter Summary ---
Author Organization [facility] [place] [address] Care Team Providers Care High Pressure Kettle Operator Name Role Phone Catracho Vernon MD Primary Care Provider [phone] Reason for Visit * Reason Onset Date Comments Labs Only 12/16/2020 lab tracking Encounter Details Date Type Department Care Team (Late st Contact Info) Description 12/16/2020 Telephone Hematology Oncology at [address] [phone] Jackie Salinas RN Labs Only (lab tracking) Social History Tobacco Use Types Packs/Day Years Used Date Smoking Tobacco: Never Smokeless Tobacco: Never Sex and Gender Information Value Date Recorded Sex Assigned at Not on file Gender Identity Female 08/21/2020 5:05 PM EST Sexual Orientation Not on file documented as of this encounter Miscellaneous Notes * Telephone Encounter - Jackie Salinas RN - 12/16/2020 8:13 AM EDT LAB TRACKING Torrey Conteh : 1945 DIAGNOSIS: ITP LABS ORDERED: cbc diff Mondays. 11/03/20 - go to every other week lab draws. MEDICATIONS: 07/16/20-dexamethasone 40 IV day one then daily for 3 days 08/05/20-08/08/20 dexamethasone 40 mg po daily Assessment/Plan: Labs sent to Dr. Bruno to review. Pt will get labs again tomorrow 12/17. Next steps will be determined at that time. Pt agrees with plan. Results for TORREY CONTEH ( ) as of 12/16/2020 08:12 Ref. Range 11/17/2020 00:00 11/24/2020 00:00 12/11/2020 00:00 12/15/2020 00:00 12/16/2020 00:00 WBC Unknown 4.98 5.02 4.94 4.55 4.78 Hemoglobin Unknown 14.1 14.1 14.5 13.6 13.8 Hematocrit Unknown 43.4 43.2 43.3 41.9 41.4 Platelets Unknown 82 90 44 33 59 Neutr Abs (ANC) Unknown 3 2.91 2.89 2.55 3.1 documented in this encounter Plan of Treatment Upcoming Encounters Date Type Department Care Team (Late st Contact Info) Description 02/22/2024 1:00 PM EDT Office Visit Hematology/Oncology at [address] [phone] Carrie Bruno MD [facility] DR HEMATOLOGY/[place] [address] Oliva Mccabe APRN [facility] DR HEMATOLOGY/[place] [address] 09/11/2024 1:00 PM EST Office Visit Dermatology at [facility] [address] [place] [address] Lizeth Hallman MD [facility] [place] [address] documented as of this encounter Procedures Procedure Name Priority Date/Time Associated Diagnosis Comments CBC (WITH DIFF) Routine 12/16/2020 documented in this encounter Results * CBC (with Diff) (12/16/2020) WBC 4.78 Hemoglobin 13.8 Hematocrit 41.4 Platelets 59 Neutr Abs (ANC) 3.1 Blood 12/16/2020 Historical Provider HEMATOLOGY ORDERA BLES documented in this encounter Visit Diagnoses Not on filedocumented in this encounter Care Teams High Pressure Kettle Operator Relationship Specialty Start Date End Date Catracho Vernon MD [facility] [place] [address] [phone] PCP - General Family Medicine 04/21/18 documented as of this encounter
--- OUTSIDE RECORDS SUMMARY | 2024-02-21 01:29 | XMS_ITS | Encounter Summary ---
Author Organization [facility] [place] [address] Care Team Providers Care Russian Rubber Name Role Phone Catracho Vernon MD Primary Care Provider [phone] Reason for Visit * Reason Onset Date Comments Labs Only 01/06/2021 Lab Tracking Encounter Details Date Type Department Care Team (Late st Contact Info) Description 01/06/2021 Telephone Hematology/Oncology at [address] [phone] Bird Kohli, RN Labs Only (Lab Tracking) Social History Tobacco Use Types Packs/Day Years Used Date Smoking Tobacco: Never Smokeless Tobacco: Never Sex and Gender Information Value Date Recorded Sex Assigned at Not on file Gender Identity Female 08/21/2020 5:05 PM EST Sexual Orientation Not on file documented as of this encounter Miscellaneous Notes * Telephone Encounter - Bird Kohli, RN - 01/06/2021 10:53 AM EDT LAB TRACKING Torrey Conteh : 1945 DIAGNOSIS: ITP LABS ORDERED: cbc/diff Weekly at [facility], also needs CMP if getting IVIG MEDICATIONS: 07/16/20- dexamethasone 40 IV day one then daily for 3 days 08/05/20-08/08/20 dexamethasone 40 mg po daily Assessment/Plan: Pt seen in clinic by Stacey Bhatt APRN to discuss POC for low PLTs. Will give IVIGtomorr and Tuesday. Then will start weekly Rituxan x4 on 01/16, then 01/26, then 02/03, and 02/11 (not perfectly weekly as she is going OOT for a week on 01/17). Will check labs Friday 01/12 to ensure her PLTs are improving. She is in agreement with plan. Results for TORREY CONTEH ( ) as of 01/06/2021 10:55 Ref. Range 12/15/2020 00:00 12/16/2020 00:00 12/17/2020 00:00 12/23/2020 00:00 01/06/2021 00:00 WBC Unknown 4.55 4.78 4.65 4.12 4.12 Hemoglobin Unknown 13.6 13.8 13.6 14.8 13.7 Hematocrit Unknown 41.9 41.4 40.6 45.1 41.3 MCV Unknown 89.2 89.8 88.6 Platelets Unknown 33 59 85 81 28 (UF) Neutr Abs (ANC) Unknown 2.55 3.1 2.87 2.29 2.26 BUN Unknown 24 Creatinine Unknown 0.9 documented in this encounter Plan of Treatment Upcoming Encounters Date Type Department Care Team (Late st Contact Info) Description 02/22/2024 1:00 PM EDT Office Visit Hematology/Oncology at [address] [phone] Carrie Bruno MD [facility] DR HEMATOLOGY/[place] [address] Oliva Mccabe, [employer] ADMIN [facility] HEMATOLOGY/[place] [address] 09/11/2024 1:00 PM EST Office Visit Dermatology at [facility] [address] [place] [address] Lizeth Hallman MD [facility] [place] [address] documented as of this encounter Procedures Procedure Name Priority Date/Time Associated Diagnosis Comments CBC (WITH DIFF) Routine 01/06/2021 documented in this encounter Results * (ABNORMAL) CBC (with Diff) (01/06/2021) WBC 4.12 Hemoglobin 13.7 Hematocrit 41.3 MCV 88.6 Platelets 28(ExtLL) Neutr Abs (ANC) 2.26 Blood Carrie Bruno MD HEMATOLOGY ORDER JAMIE documented in this encounter Visit Diagnoses Not on filedocumented in this encounter Care Teams Russian Rubber Relationship Specialty Start Date End Date Catracho Vernon MD [address] [place] [address] PCP - General Family Medicine 04/21/18 documented as of this encounter
--- OUTSIDE RECORDS SUMMARY | 2024-02-21 01:29 | XMS_ITS | Encounter Summary ---
Author Organization [facility] [place] [address] Care Team Providers Care Management Associate Name Role Phone Catracho Vernon MD Primary Care Provider [phone] Reason for Visit * Reason Onset Date Comments Labs Only 11/24/2020 lab tracking Encounter Details Date Type Department Care Team (Late st Contact Info) Description 11/24/2020 Telephone Hematology/Oncology at [address] [phone] Jackie Salinas RN Labs Only (lab tracking) Social History Tobacco Use Types Packs/Day Years Used Date Smoking Tobacco: Never Smokeless Tobacco: Never Sex and Gender Information Value Date Recorded Sex Assigned at Not on file Gender Identity Female 08/21/2020 5:05 PM EST Sexual Orientation Not on file documented as of this encounter Miscellaneous Notes * Telephone Encounter - Jackie Salinas RN - 11/24/2020 1:43 PM EDT LAB TRACKING Torrey Conteh : 1945 DIAGNOSIS: ITP LABS ORDERED: cbc diff Mondays. 11/03/20 - go to every other week lab draws. MEDICATIONS: 07/16/20-dexamethasone 40 IV day one then daily for 3 days 08/05/20-08/08/20 dexamethasone 40 mg po daily Assessment/Plan: Labs sent to Dr. Bruno to review. Pt called and will see Dr. Bruno wed. 11/26to determine next steps and when to do labs again. ADD: pt will get labs on December 11, and January 01. (pt will be away December 17- December 31). Results for TORREY CONTEH ( ) as of 11/24/2020 13:42 Ref. Range 10/20/2020 00:00 10/27/2020 00:00 11/03/2020 00:00 11/17/2020 00:00 11/24/2020 00:00 WBC Unknown 5.38 4.58 4.3 4.98 5.02 RBC Unknown 4.65 4.43 Hemoglobin Unknown 14.0 14.1 13.6 14.1 14.1 Hematocrit Unknown 43.1 42.7 41.8 43.4 43.2 Platelets Unknown 95 95 90 82 90 Neutr Abs (ANC) Unknown 3.28 2.63 2.56 3 2.91 documented in this encounter Plan of Treatment Upcoming Encounters Date Type Department Care Team (Late st Contact Info) Description 02/22/2024 1:00 PM EDT Office Visit Hematology/Oncology at [address] [phone] Carrie Bruno MD [facility] DR HEMATOLOGY/[place] [address] Oliva Mccabe APRN [facility] DR HEMATOLOGY/[place] [address] 09/11/2024 1:00 PM EST Office Visit Dermatology at [facility] [address] [place] [phone] Lizeth Hallman MD [facility] [address] [address] documented as of this encounter Procedures Procedure Name Priority Date/Time Associated Diagnosis Comments CBC (WITH DIFF) Routine 11/24/2020 documented in this encounter Results * CBC (with Diff) (11/24/2020) WBC 5.02 Hemoglobin 14.1 Hematocrit 43.2 Platelets 90 Neutr Abs (ANC) 2.91 Blood 11/24/2020 Historical Provider HEMATOLOGY ORDERA BLES documented in this encounter Visit Diagnoses Not on filedocumented in this encounter Care Teams Management Associate Relationship Specialty Start Date End Date Catracho [place] MD [address] [place] [phone] PCP - General Family Medicine 04/21/18 documented as of this encounter
--- OUTSIDE RECORDS SUMMARY | 2024-02-21 01:29 | XMS_ITS | Encounter Summary ---
Author Organization [facility] Address [facility] [place] [address] Care Team Providers Care Sales Development Executive Name Role Phone Catracho Vernon MD Primary Care Provider [phone] Reason for Visit * Reason Comments IV Medication IVIG second time rat e to max rate of 0.033 mL/kg/min * Treatment/Therapy Plan Authorization (Routine) - Pending Review Specialty Diagnoses / Procedures Referred By Edson t Referred To Contact Diagnoses Thrombocytopenia Carrie Bruno MD [facility] DR HEMATOLOGY/[place] [address] Referral ID Status Reason Start Date Expiration Date V isits Requested Visits Authorized [id number] Pending Review 09/17/2020 09/17/2021 99 99 Encounter Details Date Type Department Care Team (Late st Contact Info) Description 01/09/2021 8:00 AM EDT Infusion Hematology Oncology at [address] [phone] Thrombocytopenia Social History Tobacco Use Types Packs/Day Years Used Date Smoking Tobacco: Never Smokeless Tobacco: Never Sex and Gender Information Value Date Recorded Sex Assigned at Not on file Gender Identity Female 08/21/2020 5:05 PM EST Sexual Orientation Not on file documented as of this encounter Last Filed Vital Signs Vital Sign Reading Time Taken Comments Blood Pressure 118/68 01/09/2021 1:45 PM EDT Pulse 61 01/09/2021 1:45 PM EDT Temperature 36.2 ??C (97.1 ??F) 01/09/2021 8:10 AM ED T Respiratory Rate 16 01/09/2021 8:10 AM EDT Oxygen Saturation 97% 01/09/2021 1:45 PM EDT Inhaled Oxygen Concentration - - Weight 72.2 kg (159 lb 3.2 oz) 01/09/2021 8:15 A M EDT Height 160 cm (5' 3) 01/09/2021 8:10 AM EDT Body Mass Index 28.2 01/09/2021 8:10 AM EDT documented in this encounter Progress Notes * Ebony Kendall RN - 01/09/2021 8:00 AM EDT INFUSION THERAPY ADMINISTRATION NOTES DIAGNOSIS: ITP REASON FOR VISIT: Second time IVIG infusion SUBJECTIVE: Shanita Francisco offers no complaints. OBJECTIVE: VSS. LAB DATA: From 01/06/21: WBC 4.12, HGB 13.7, HCT 41.3, PLT 28, ANC 2.26 IV ACCESS: PIV in right hand placed 01/08/21. Benign REACTIONS (DESCRIPTION, TIME, INTERVENTION AND EFFECTIVENESS) none ASSESSMENT: Shanita Francisco was awake, alert and tolerated treatment well. PIV discontinued prior to dismissal. IVIG was given at second time rate with rate capped at 0.033 mL/kg/min per IVIG calculator (due to age greater than 65). PLAN Return to clinic next Tuesday for Rituximab. documented in this encounter Plan of Treatment Upcoming Encounters Date Type Department Care Team (Late st Contact Info) Description 02/22/2024 1:00 PM EDT Office Visit Hematology/Oncology at [address] [phone] Carrie Bruno MD [facility] DR HEMATOLOGY/[place] [address] Oliva Mccabe, ONLINE PROGRAM COORDINATOR [facility] HEMATOLOGY/[place] [address] 09/11/2024 1:00 PM EST Office Visit Dermatology at [facility] [address] [place] [address] Lizeth Hallman MD [facility] [address] [place] [address] documented as of this encounter Visit Diagnoses Diagnosis Thrombocytopenia Thrombocytopenia, unspecified documented in this encounter Administered Medications Inactive Administered Medications - up to 3 most recent administrations Medication Order [facility] Action Action Date Dose Rate Site acetaminophen (Tylenol) tablet 650 mg 650 mg, Oral, ONCE, 1 dose, On Tue01/09/21 at 0830, Routine Given 01/09/2021 8:30 AM EDT 650 mg diphenhydrAMINE (Benadryl) capsule 25 mg 25 mg, Oral, ONCE, 1 dose, On Tue01/09/21 at 0830, Routine Given 01/09/2021 8:30 AM EDT 25 mg immune globulin (PRIVIGEN) (100 mg/mL) 10 g/100 mL infusion 10 g 10 g, Intravenous, ONCE, 1 dose, On Tue01/09/21 at 0845, Total Dose: 50g [Dispense: 40g [...] require approval by P&T Chair or On-Call Biomed Tech. *Idiopathic thrombocytopenic purpura *, What is the maximum rate of administration? 0.04 mL/kg/min (for idiopathic thrombocytopenia or any patient with renal insufficiency or any patient greater than or equal to 65 years old) New Bag 01/09/2021 9:02 AM EDT 10 g immune globulin (PRIVIGEN) (100 mg/mL) 40 g/400 mL infusion 40 g 40 g, Intravenous, ONCE, 1 dose, On Tue01/09/21 at 0845, Total Dose: 50g [Dispense: 40g [...] require approval by P&T Chair or On-Call Biomed Tech. *Idiopathic thrombocytopenic purpura *, What is the maximum rate of administration? 0.04 mL/kg/min (for idiopathic thrombocytopenia or any patient with renal insufficiency or any patient greater than or equal to 65 years old) New Bag 01/09/2021 10:04 AM EDT 40 g documented in this encounter Care Teams Sales Development Executive Relationship Specialty Start Date End Date Catracho Vernon MD [address] [place] [address] PCP - General Family Medicine 04/21/18 documented as of this encounter
--- OUTSIDE RECORDS SUMMARY | 2024-02-21 01:29 | XMS_ITS | Encounter Summary ---
Author Organization [facility] [place] [address] Care Team Providers Care Conveyancer Name Role Phone Catracho Vernon MD Primary Care Provider [phone] Reason for Visit * Reason Onset Date Comments Labs Only 12/17/2020 lab tracking Encounter Details Date Type Department Care Team (Late st Contact Info) Description 12/17/2020 Telephone Hematology/Oncology at [address] [phone] Bird Kohli, RN Labs Only (lab tracking) Social History Tobacco Use Types Packs/Day Years Used Date Smoking Tobacco: Never Smokeless Tobacco: Never Sex and Gender Information Value Date Recorded Sex Assigned at Not on file Gender Identity Female 08/21/2020 5:05 PM EST Sexual Orientation Not on file documented as of this encounter Miscellaneous Notes * Telephone Encounter - Bird Kohli RN - 12/17/2020 11:10 AM EDT LAB TRACKING Torrey Conteh : 1945 DIAGNOSIS: ITP LABS ORDERED: cbc diff Mondays. 11/03/20 - go to every other week lab draws. MEDICATIONS: 07/16/20- dexamethasone 40 IV day one then daily for 3 days 08/05/20-08/08/20 dexamethasone 40 mg po daily Assessment/Plan: Labs sent to Dr. Bruno to review. Will recheck CBC while OOT at any lab of her choice. She was given CBC lab order to take with her. She will go 12/[address] Bruno can review on 12/24. She is advised to take Dexamethsone (40 mg tabs x4) with her in case she needs it, depending on what her PLT are. She does have refills. She is in agreement with plan and will call sooner with any changes or concerns. Results for TORREY CONTEH ( ) as of 12/17/2020 11:13 Ref. Range 11/24/2020 00:00 12/11/2020 00:00 12/15/2020 00:00 12/16/2020 00:00 12/17/2020 00:00 WBC Unknown 5.02 4.94 4.55 4.78 4.65 Hemoglobin Unknown 14.1 14.5 13.6 13.8 13.6 Hematocrit Unknown 43.2 43.3 41.9 41.4 40.6 MCV Unknown 89.2 Platelets Unknown 90 44 33 59 85 Neutr Abs (ANC) Unknown 2.91 2.89 2.55 3.1 2.87 BUN Unknown 24 Creatinine Unknown 0.9 documented in this encounter Plan of Treatment Upcoming Encounters Date Type Department Care Team (Late st Contact Info) Description 02/22/2024 1:00 PM EDT Office Visit Hematology/Oncology at [address] [phone] Carrie Bruno MD [facility] DR HEMATOLOGY/[place] [address] Oliva Mccabe APRN [facility] HEMATOLOGY/[place] [address] 09/11/2024 1:00 PM EST Office Visit Dermatology at [facility] [address] [place] [address] Lizeth Hallman MD [facility] DR DONTA [place] [address] documented as of this encounter Procedures Procedure Name Priority Date/Time Associated Diagnosis Comments CBC (WITH DIFF) Routine 12/17/2020 documented in this encounter Results * CBC (with Diff) (12/17/2020) WBC 4.65 Hemoglobin 13.6 Hematocrit 40.6 MCV 89.2 Platelets 85 Neutr Abs (ANC) 2.87 Blood Carrie Bruno MD HEMATOLOGY ORDER JAMIE documented in this encounter Visit Diagnoses Not on filedocumented in this encounter Care Teams Conveyancer Relationship Specialty Start Date End Date Catracho Vernon MD [address] [place] [address] [place] [address] PCP - General Family Medicine 04/21/18 documented as of this encounter
--- OUTSIDE RECORDS SUMMARY | 2024-02-21 01:29 | XMS_ITS | Encounter Summary ---
Author Organization [facility] [place] [address] Care Team Providers Care Guest Experience Representative Name Role Phone Catracho Vernon MD Primary Care Provider [phone] Reason for Visit * Reason Onset Date Comments Labs Only 12/15/2020 lab tracking Encounter Details Date Type Department Care Team (Late st Contact Info) Description 12/15/2020 Telephone Hematology Oncology at [address] [phone] Jackie Salinas RN Labs Only (lab tracking) Social History Tobacco Use Types Packs/Day Years Used Date Smoking Tobacco: Never Smokeless Tobacco: Never Sex and Gender Information Value Date Recorded Sex Assigned at Not on file Gender Identity Female 08/21/2020 5:05 PM EST Sexual Orientation Not on file documented as of this encounter Miscellaneous Notes * Telephone Encounter - Jackie Salinas RN - 12/15/2020 8:28 AM EDT LAB TRACKING Torrey Conteh : 1945 DIAGNOSIS: ITP LABS ORDERED: cbc diff Mondays. 11/03/20 - go to every other week lab draws. MEDICATIONS: 07/16/20-dexamethasone 40 IV day one then daily for 3 days 08/05/20-08/08/20 dexamethasone 40 mg po daily Assessment/Plan: Labs sent to Dr. Bruno to review. Pt getting IVIG today and tomorrow. Labs again tomorrow to make sure she is getting response to IVIG, if everything good labs again on January 01 after her trip. Results for TORREY CONTEH ( ) as of 12/15/2020 08:37 Ref. Range 11/17/2020 00:00 11/24/2020 00:00 12/11/2020 00:00 12/15/2020 00:00 WBC Unknown 4.98 5.02 4.94 4.55 Hemoglobin Unknown 14.1 14.1 14.5 13.6 Hematocrit Unknown 43.4 43.2 43.3 41.9 Platelets Unknown 82 90 44 33 Neutr Abs (ANC) Unknown 3 2.91 2.89 2.55 BUN Unknown 24 Creatinine Unknown 0.9 documented in this encounter Plan of Treatment Upcoming Encounters Date Type Department Care Team (Late st Contact Info) Description 02/22/2024 1:00 PM EDT Office Visit Hematology/Oncology at [address] [phone] Carrie Bruno MD [facility] [address] HEMATOLOGY/[place] [address] Oliva Mccabe, CLERICAL AND ADMINISTRATIVE WORKERS [facility] DR HEMATOLOGY/[place] [address] 09/11/2024 1:00 PM EST Office Visit Dermatology at [facility] [address] [place] [address] Lizeth Hallman MD [facility] [place] [address] documented as of this encounter Procedures Procedure Name Priority Date/Time Associated Diagnosis Comments CBC (WITH DIFF) Routine 12/15/2020 documented in this encounter Results * CBC (with Diff) (12/15/2020) WBC 4.55 Hemoglobin 13.6 Hematocrit 41.9 Platelets 33 Neutr Abs (ANC) 2.55 BUN 24 Creatinine 0.9 Blood 12/15/2020 Historical Provider HEMATOLOGY ORDERA BLES documented in this encounter Visit Diagnoses Not on filedocumented in this encounter Care Teams Guest Experience Representative Relationship Specialty Start Date End Date Catracho Vernon MD [address] [place] [phone] PCP - General Family Medicine 04/21/18 documented as of this encounter
--- OUTSIDE RECORDS SUMMARY | 2024-02-21 01:29 | XMS_ITS | Encounter Summary ---
Author Organization [facility] Address [facility] [place] [address] Care Team Providers Care Drosser Name Role Phone Catracho Vernon MD Primary Care Provider [phone] Reason for Visit * Reason Comments Chemotherapy Rituxan, Cycle 2 * Treatment/Therapy Plan Authorization (Routine) - Pending Review Specialty Diagnoses / Procedures Referred By Contshanna t Referred To Contact Diagnoses Thrombocytopenia Stacey Bhatt, OFFICIAL COURT REPORTER [facility] HEMATOLOGY/[place] [address] Referral ID Status Reason Start Date Expiration Date V isits Requested Visits Authorized [id number] Pending Review 01/14/2021 01/14/2022 99 99 Encounter Details Date Type Department Care Team (Late st Contact Info) Description 01/26/2021 8:00 AM EDT Infusion Hematology Oncology at [address] [phone] Thrombocytopenia Social History Tobacco Use Types Packs/Day Years Used Date Smoking Tobacco: Never Smokeless Tobacco: Never Sex and Gender Information Value Date Recorded Sex Assigned at Not on file Gender Identity Female 08/21/2020 5:05 PM EST Sexual Orientation Not on file documented as of this encounter Last Filed Vital Signs Vital Sign Reading Time Taken Comments Blood Pressure 149/67 01/26/2021 8:13 AM EDT Pulse 88 01/26/2021 8:13 AM EDT Temperature 36.6 ??C (97.9 ??F) 01/26/2021 8:13 AM ED T Respiratory Rate 20 01/26/2021 8:13 AM EDT Oxygen Saturation 100% 01/26/2021 8:13 AM EDT Inhaled Oxygen Concentration - - Weight - - Height - - Body Mass Index - - documented in this encounter Progress Notes * Tania Soliman RN - 01/26/2021 8:00 AM EDT INFUSION THERAPY ADMINISTRATION NOTES DIAGNOSIS: ITP CYCLE #2 REASON FOR VISIT: Rituxan infusion SUBJECTIVE Shanita A Nolan offers no complaints. OBJECTIVE LAB DATA: PLTS 45 IV ACCESS: PIV Pre administration: Chemotherapy orders independently verified for drug name, route, and dosage per patient's height, weight and BSA by TANIA SOLIMAN RN & On-site pharmicist. REACTIONS (DESCRIPTION, TIME, INTERVENTION AND EFFECTIVENESS) none ASSESSMENT Shanita Noel Francisco was awake, alert and tolerated treatment well. PLAN Return to clinic as scheduled. documented in this encounter Plan of Treatment Upcoming Encounters Date Type Department Care Team (Late st Contact Info) Description 02/22/2024 1:00 PM EDT Office Visit Hematology/Oncology at [address] [phone] Carrie Bruno MD [facility] DR HEMATOLOGY/[place] [address] Oliva Mccabe APRN [facility] DR HEMATOLOGY/[place] [address] 09/11/2024 1:00 PM EST Office Visit Dermatology at [facility] [address] [place] [phone] Lizeth Hallman MD [facility] DR [address] [place] [address] documented as of this encounter Visit Diagnoses Diagnosis Thrombocytopenia Thrombocytopenia, unspecified documented in this encounter Administered Medications Inactive Administered Medications - up to 3 most recent administrations Medication Order MAR Action Action Date Dose Rate Site acetaminophen (Tylenol) tablet 650 mg 650 mg, Oral, ONCE, 1 dose, On Tue01/26/21 at 0815, To be given before riTUXimab infusion, Routine Given 01/26/2021 8:35 AM EDT 650 mg diphenhydrAMINE (Benadryl) (50 mg/mL) injection 25 mg 25 mg, Intravenous, ONCE, 1 dose, On Tue01/26/21 at 0815, To be given before riTUXimab infusion, Routine Given 01/26/2021 8:35 AM EDT 25 mg riTUXimab (Rituxan) 100 mg in sodium chloride 0.9% 50 mL infusion 100 mg, Intravenous, ONCE, 1 dose, On Tue01/26/21 at 0815, Administer per protocol, RITUXAN is NON-PREFERRED brand. Please indicate why RITUXAN is specifically required (vs. preferred RUXIENCE brand): Patient? s insurance (payer) does not cover Ruxience New Bag 01/26/2021 9:03 AM EDT 100 mg documented in this encounter Care Teams Drosser Relationship Specialty Start Date End Date Catracho Vernon MD [address] [place] [address] PCP - General Family Medicine 04/21/18 documented as of this encounter
--- OUTSIDE RECORDS SUMMARY | 2024-02-21 01:29 | XMS_ITS | Encounter Summary ---
Author Organization [facility] Address [facility] [place] [address] Care Team Providers Care Machine Operations Supervisor Name Role Phone Catracho Vernon MD Primary Care Provider [phone] Encounter Details Date Type Department Care Team (Late st Contact Info) Description 04/15/2021 10:30 AM EDT Office Visit Hematology/Oncology at [address] [phone] Carrie Bruno MD [facility] DR HEMATOLOGY/[place] [address] Stacey Bhatt APRN [facility] DR HEMATOLOGY/[place] [address] Thrombocytopenia Social History Tobacco Use Types Packs/Day Years Used Date Smoking Tobacco: Never Smokeless Tobacco: Never Sex and Gender Information Value Date Recorded Sex Assigned at Not on file Gender Identity Female 08/21/2020 5:05 PM EST Sexual Orientation Not on file documented as of this encounter Last Filed Vital Signs Vital Sign Reading Time Taken Comments Blood Pressure 155/79 04/15/2021 10:33 AM EDT Pulse 75 04/15/2021 10:28 AM EDT Temperature 36.4 ??C (97.5 ??F) 04/15/2021 10:28 AM E DT Respiratory Rate 20 04/15/2021 10:28 AM EDT Oxygen Saturation 96% 04/15/2021 10:28 AM EDT Inhaled Oxygen Concentration - - Weight 72.1 kg (159 lb) 04/15/2021 10:28 AM EDT Height 160 cm (5' 2.99) 04/15/2021 10:28 AM EDT Body Mass Index 28.17 04/15/2021 10:28 AM EDT documented in this encounter Progress Notes * Stacey Bhatt, CABLE SUPERVISOR - 04/15/2021 10:30 AM EDT Subjective: Patient ID: Shanita Francisco is a 75 y.o. female here for f/u of ITP Patient Active Problem List Diagnosis ??? Spinal stenosis at L4-L5 level ??? 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 Nevus ??? Healthcare maintenance HPI Shanita is doing well. She saw a physician at [facility] regarding splenectomy who agreed that splenectomy at this time is not warranted. She is pleased with her response to Rituxan. She tolerated itwell. She has had no unusual bleeding or bruising. Her energy is stable - she really has no other concerns or complaints today. Review of Systems Constitutional: Negative. HENT: Negative. Eyes: Negative. Respiratory: Negative. Negative for cough and shortness of breath. Cardiovascular: Negative. Negative for chest pain, palpitations and leg swelling. Gastrointestinal: Negative. Negative for constipation, diarrhea, nausea and vomiting. Genitourinary: Negative. Musculoskeletal: Negative. Skin: Negative. Neurological: Negative. Negative for weakness and numbness. Psychiatric/Behavioral: Negative. Objective: Physical Exam Constitutional: General: She is not in acute distress. Appearance: She is well-developed. HENT: Head: Atraumatic. Mouth/Throat: Pharynx: No oropharyngeal exudate. Eyes: Conjunctiva/sclera: Conjunctivae normal. Pupils: Pupils are equal, round, and reactive to light. Cardiovascular: Rate and Rhythm: Normal rate and regular rhythm. Heart sounds: Normal heart sounds. No murmur heard. Pulmonary: Effort: Pulmonary effort is normal. Breath sounds: Normal breath sounds. No wheezing or rales. Abdominal: General: Bowel sounds are normal. Palpations: Abdomen is soft. There is no mass. Tenderness: There is no abdominal tenderness. There is no guarding or rebound. Musculoskeletal: General: Normal range of motion. Cervical back: Normal range of motion and neck supple. Skin: General: Skin is warm and dry. Comments: No unusual bruises - small 1cm healing bruise on anterior leg where she ran into coffee table Neurological: Mental Status: She is alert and oriented to person, place, and time. Recent Results (from the past 72 hour(s)) CBC (with Diff) Result Value Ref Range WBC 5.52 Hemoglobin 14.3 Hematocrit 43.4 MCV 91.9 Platelets 110 Neutr Abs (ANC) 3.57 BP 155/79 (Patient Position: Sitting) Pulse 75 Temp 36.4 ??C (97.5 ??F) (Temporal) Resp 20 Ht 160 cm (5' 2.99) Wt 72.1 kg (159 lb) SpO2 96% BMI 28.17 kg/m?? Assessment and Plan: Ms Francisco is a delightful 75 y.o. female with chronic ITP. She was originally treated by Dr. Didier Jade treated her with dexamethasone 40 mg x 4 days in April 2018. Has had chronic ITP since 2019. ?? Her most recent excerbation Was December of 2020. Now status post IVIG and S/P weekly rituximab 100 mg flat dose X 4 doses (01/16/21-02/11/21). She generally gets temporary moderate response to IVIG. It appears that she is now having a response to her Rituxan which is not unusual for it to take weeks to a few months to show improvement. recent IVIG was on 01/16 and 01/17. Most recent Dex 40mg X 4 days (02/19-02/22/21). At this point we will continue to monitor her response prospectively. It is difficult to know how long this response will last. We reviewed worrisome s/sx including spontaneous bleeding or bruising and oral lesions. We reviewed importance for being on the look out for such symptoms especially if she gets any sort of febrile/viral illness. At this time we will continue Q2week cbc monitoring. As long as platelets remain above 30K we wouldnot consider any additional treatment. I am thrilled that her platelets have been over a 100 for the past number of weeks! Shanita Noel Francisco will return to clinic in 3 months- she will call before then if any concerns or changes in status. ?? documented in this encounter Plan of Treatment Upcoming Encounters Date Type Department Care Team (Late st Contact Info) Description 02/22/2024 1:00 PM EDT Office Visit Hematology/Oncology at [address] [phone] Carrie Bruno MD [facility] DR HEMATOLOGY/[place] [address] Oliva Mccabe APRN [facility] DR HEMATOLOGY/[place] [address] 09/11/2024 1:00 PM EST Office Visit Dermatology at [address] [phone] Lizeth Hallman MD [facility] [place] [address] documented as of this encounter Visit Diagnoses Diagnosis Thrombocytopenia Thrombocytopenia, unspecified documented in this encounter Care Teams Machine Operations Supervisor Relationship Specialty Start Date End Date Catracho Vernon MD [address] [place] [address] PCP - General Family Medicine 04/21/18 documented as of this encounter
--- OUTSIDE RECORDS SUMMARY | 2024-02-21 01:29 | XMS_ITS | Encounter Summary ---
Author Organization [facility] Address [facility] [place] [address] Care Team Providers Care Software Configuration Analyst Name Role Phone Catracho Vernon MD Primary Care Provider [phone] Encounter Details Date Type Department Care Team (Latest Contact Info) Description 03/03/2021 7:30 AM EDT - 03/03/2021 7:38 AM EDT Hospital Encounter Hematology [place] [address] Thrombocytopenia Discharge Disposition: Home Social History Tobacco Use Types Packs/Day Years Used Date Smoking Tobacco: Never Smokeless Tobacco: Never Sex and Gender Information Value Date Recorded Sex Assigned at Not on file Gender Identity Female 08/21/2020 5:05 PM EST Sexual Orientation Not on file documented as of this encounter Medications at Time of Discharge Medication Sig Dispensed Refills Start Date End Date ergocalciferol, vitamin D2, (VITAMIN D ORAL) Take 1,000 mg by mouth daily. ubidecarenone (CO Q-10 ORAL) Take by mouth. Azelaic Acid (FINACEA) 15 % GelIndications:Rosacea After washing your face twice a day, apply a thin film of cream to affected areas of the face twice daily. 30 g 3 11/13/2020 07/15/2021 dexamethasone (Decadron) 4 mg TabletIndications:Throm bocytopenia Dex 40mg daily X 4 days and repeat q 3 weeks 40 tablet 11 07/16/2020 12/15/2022 TURMERIC ORAL Take 1 capsule by mouth daily. 12/15/2022 documented as of this encounter Plan of Treatment Upcoming Encounters Date Type Department Care Team (Late st Contact Info) Description 02/22/2024 1:00 PM EDT Office Visit Hematology/Oncology at [address] [address] Carrie Bruno MD [facility] DR HEMATOLOGY/[place] [address] Oliva Mccabe APRN [facility] HEMATOLOGY/[place] [address] 09/11/2024 1:00 PM EST Office Visit Dermatology at [facility] [address] [place] [address] Lizeth Hallman MD [facility] [address] [place]TA [place] [address] Scheduled Orders Name Type Priority Associated Diagnoses Orde r Schedule Comprehensive metabolic panel (non-fasting) Lab Routine Thrombocytopenia 1 Occurrences starting 03/03/2021 until 03/03/2021 documented as of this encounter Procedures Procedure Name Priority Date/Time Associated Diagnosis Comments IMMUNOGLOBULIN FREE LIGHT CHAINS, SERUM STAT 03/03/2021 12:37 PM EDT Thrombocytopenia HC IGG, SERUM STAT 03/03/2021 12:37 PM EDT Thrombocytopenia HC SERUM PROT. ELECTROPHORESIS STAT 03/03/2021 12:37 PM EDT Thrombocytopenia HC SARS-COV-2 SPIKE ANTIBODY Routine 03/03/2021 7:27 AM EDT Thrombocytopenia HEMOGRAM STAT 03/03/2021 7:27 AM EDT Thrombocytopenia DIFFERENTIAL, AUTOMATED STAT 03/03/20 7:27 AM EDT Thrombocytopenia HC CBC,PLT & AUTO DIFF STAT 7:27 AM EDT Thrombocytopenia HC LACTIC DEHYDROGENASE STAT 03/03/20 7:27 AM EDT Thrombocytopenia COMPREHENSIVE METABOLIC PANEL (NON-FASTING) STAT 03/03/2021 7:27 AM EDT Thrombocytopenia documented in this encounter Results * Protein Electrophoresis, serum (03/03/2021 12:37 PM EDT) Pathologist [facility] Total Prot Elec 6.7 6.1 - 8.0 gm/dL [facility] Albumin Elect 4.27 3.60 - 6.00 gm/dL [facility] Alpha1-Globul in 0.19 0.10 - 0.30 gm/dL [facility] Alpha2-Globul in 0.80 0.40 - 0.90 gm/dL [facility] Beta Globulin 0.76 0.50 - 1.00 gm/dL [facility] Gamma Globulin 0.68 0.50 - 1.30 gm/dL [facility] M1 Band None Detected None Detected [facility] Blood 03/03/2021 12:3 7 PM EDT 03/03/2021 12:50 PM EDT Narrative Resulting Agency Comment Spec In Lab Carrie Bruno MD CHEMISTRY ORDERA BLES [facility] [place] [address] * Immunoglobulins, Quantitative (03/03/2021 12:37 PM EDT) Pathologist [facility] IgG 885 700 - 1,600 mg/dL [facility] Comment: Pediatric Reference Intervals obtained from the Caliper Reference Interval project. http://www.sickkids.ca/caliperproject/index.html IgA 128 70 - 400 mg/dL [facility] IgM 91 40 - 230 mg/dL [facility] Blood 03/03/2021 12:3 7 PM EDT 03/03/2021 12:50 PM EDT Narrative Resulting Agency Comment Spec In Lab Carrie Bruno MD CHEMISTRY ORDERA BLES [facility] [place] [address] * Free Light Chains, Serum (03/03/2021 12:37 PM EDT) Pathologist [facility] Nedrow Free Light Chain 0.83 0.72 - 2.75 mg/dL [facility] Lambda Free Light Chain 0.93 0.57 - 2.15 mg/dL [facility] Nedrow Lambda FLC Ratio 0.8925 0.4000 - 2.5800 [facility] Blood 03/03/2021 12:3 7 PM EDT 03/03/2021 12:50 PM EDT Narrative Resulting Agency Comment Spec In Lab Carrie Bruno MD CHEMISTRY ORDERA BLES Performing Organization Address City/[facility]/ZIP Co de Phone Number [facility] [place] [address] * (ABNORMAL) Differential, Automated (03/03/2021 7:27 AM EDT) [facility] Neutrophils % 62.1 % [facility] Neutr Abs (ANC) 4.99 1.70 - 6.10 x10(3)/mc L [facility] Lymphocytes % 23.8 % [facility] Lymphocytes Abs 1.9 0.9 - 3.2 x10(3)/mc L [facility] Monocytes % 12.0 % [facility] Monocyte Abs 1.0(H) 0.3 - 0.9 x10(3)/mc L [facility] Eosinophils % 0.9 % [facility] Eosinophils Abs 0.1 0.0 - 0.4 x10(3)/mc L [facility] Basophils % 0.6 % [facility] Basophils Abs 0.0 0.0 - 0.1 x10(3)/mc L [facility] Immature Gran % 0.60 % [facility] Comment: Immature granulocytes(IG's)percentage and absolute count will include metamyelocytes, myelocytes, and promyelocytes. Blood smears from CBCs yielding IG's will be scanned manually for concordance. If this scan disagrees with the automated IG or if promyelocytes are noted, a manual differential will be performed. Mackenzie Gran Abs 0.05(H) 0.00 - 0.04 x10(3)/mc L [facility] Blood 03/03/2021 7:27 AM EDT 03/03/2021 7:48 AM EDT Narrative Resulting Agency Comment Spec In Lab Carrie Bruno MD HEMATOLOGY ORDER JAMIE Performing Organization Address City/State/[facility] Co de Phone Number [facility] [place] [address] * (ABNORMAL) Hemogram (03/03/2021 7:27 AM EDT) WBC 8.0 4.0 - 9.5 x10(3)/[facility] RBC 4.75 4.00 - 5.21 x10(6)/[facility] Hemoglobin 14.0 11.7 - 15.5 gm/dL [facility] Hematocrit 42.9 35.7 - 45.8 % [facility] MCV 90.3 82.6 - 94.4 fL [facility] MCH 29.5 27.1 - 32.0 pg [facility] MCHC 32.6 31.7 - 35.0 gm/dL [facility] Platelets 131(L) 145 - 357 x10(3)/[facility] RDWSD 43.4 37.0 - 46.0 fL [facility] RDWCV 13.2 11.5 - 14.1 % [facility] MPV 11.5 7.6 - 12.9 fL [facility] nRBC % Auto 0.0 % [facility] nRBC Abs Auto 0.000 0.000 - 0.000 x10(3)/mcL [facility] Blood 03/03/2021 7:27 AM EDT 03/03/2021 7:48 AM EDT Narrative Resulting Agency Comment Spec In Lab Carrie Bruno MD HEMATOLOGY ORDER JAMIE [facility] [place] [address] * Comprehensive metabolic panel (non-fasting) (03/03/2021 7:27 AM EDT) Glucose Lvl 100 65 - 199 mg/dL [facility] Comment:Diabetes: >=200 mg/d L plus symptoms BUN 17 8 - 18 mg/dL [facility] Creatinine 0.86 0.70 - 1.20 mg/dL [facility] Sodium 142 135 - 145 mmol/L [facility] Potassium 3.6 3.5 - 5.0 mmol/L [facility] Comment: Please note: ??Patients with WBC >100,000 may have falsely elevated Potassium levels. ??For accurate Potassium quantification in these patients send serum separator tube (gold top) for subsequent determinations. ??Contact the Clinical Chemistry Laboratory if there are any questions. Chloride 106 98 - 107 mmol/L [facility] CO2 26 22 - 31 mmol/L [facility] Anion Gap 10 5 - 15 mmol/L [facility] Calcium 9.9 8.5 - 10.5 mg/dL [facility] Total Protein 6.7 6.1 - 8.0 gm/dL [facility] Albumin 4.0 3.2 - 5.2 gm/dL [facility] AST 15 0 - 30 unit/L [facility] ALT 25 0 - 30 unit/L [facility] Alk Phos 85 35 - 105 unit/L [facility] Total Bilirubin 0.2 0.2 - 1.3 mg/dL [facility] Estimated GFR 65 >=60 mL/min/1. 73 m?? [facility] Comment: This patient? s estimated glomerular filtration rate (eGFR) is between 65 mL/min/1.73 m2 (patients with less muscle mass) and 76 mL/min/1.73 m2 (patients with more muscle mass) as determined by the CKD-EPI equation. Assessment of eGFR is not appropriate when creatinine concentrations are rapidly changing. For clinical decisions where creatinine clearance will affect therapy, a 24-hour urine creatinine clearance may be advised. Assignment of CKD stage 1 - 5 for patients with an eGFR near the transition point between stages may be based on clinical assessment of muscle mass and symptoms in addition to eGFR. Blood 03/03/2021 7:27 AM EDT 03/03/2021 7:48 AM EDT Narrative Resulting Agency Comment Spec In Lab Carrie Bruno MD CHEMISTRY ORDERA BLES Performing Organization Address [facility]/ZIP Co de Phone Number [facility] [place] [address] * Lactate Dehydrogenase (03/03/2021 7:27 AM EDT) LDH 177 110 - 220 unit/L [facility] Blood 03/03/2021 7:27 AM EDT 03/03/2021 7:48 AM EDT Narrative Resulting Agency Comment Spec In Lab Carrie Bruno MD CHEMISTRY ORDERA BLES Performing Organization Address City/[facility]/ZIP Co de Phone Number [facility] [place] [address] * COVID-19 Rob Antibody (03/03/2021 7:27 AM EDT) SARS-CoV-2 Rob Ab Detected [facility] Comment: This is a total antibody assay to the spike protein of SARS-CoV-2. It does not distinguish between IgG and IgM antibodies to SARS-CoV-2. This test will detect antibodies made against the spike protein due to vaccination or from a previous infection. Results cannot be used to diagnose acute SARS-CoV-2 (Severe acute respiratory syndrome coronavirus 2, also known as 2019 novel coronavirus or 2019-nCoV) infection. A 'Not Detected' result does not rule out SARS-CoV-2 infection, particularly in those who have been in contact with the virus. Follow-up testing with a molecular diagnostic test to SARS-CoV-2 should be considered for individuals with symptoms of active SARS-CoV-2 infection. A 'Detected' result cannot be interpreted as conclusive evidence of protective immunity to the SARS-CoV-2 virus. Detection may be due to a past infection with rpt-HLBU-CgH-2 coronavirus strains, such as coronavirus HKU1, NL63, OC43, or 229E. This test was performed using the Elecsys Tbay-VSTF-EyN-2 S total antibody assay on the Rafa Delon e801 analyzer. This serology test is available following FDA Emergency Use Authorization, however it has not been reviewed by the FDA, nor is it FDA cleared or approved. The performance characteristics of this test were determined by the Department of Pathology and Laboratory Medicine at [facility]. The laboratory is certified under the Clinical Laboratory Improvement Amendments of 1988 (CLIA), 42 U.S.C. section 263a, to perform high complexity tests. Results should not be used as the sole basis to diagnose or exclude SARS-CoV-2 infection, to inform infection status, or to screen donated blood. CDC COVID-19 criteria for testing on human specimens and clinical management guidance information are available at the CDC Coronavirus Disease 2019 (COVID-19) webpage under Information for Healthcare Professionals (https://www.cdc.gov/coronavirus/2019-ncov/hcp/index.html) Additional information about this and other EUA tests can be found in provider and patient fact sheets at the following FDA website: https://www.fda.gov/medical-devices/jtamzfdykfq-vvyautr-5298-eikuo-58-kvuvhhjad- use-a rowyglkcneuso-unptwpj-grqvytp/omszy-nyfmclrnrrb-ymcx Blood 03/03/2021 7:27 AM EDT 03/03/2021 7:48 AM EDT Carrie Bruno MD CHEMISTRY ORDERA BLES [facility] [place] [address] documented in this encounter Visit Diagnoses Diagnosis Thrombocytopenia Thrombocytopenia, unspecified documented in this encounter Care Teams Software Configuration Analyst Relationship Specialty Start Date End Date Catracho Vernon MD [address] [place] [address] PCP - General Family Medicine 04/21/18 documented as of this encounter
--- OUTSIDE RECORDS SUMMARY | 2024-02-21 01:29 | XMS_ITS | Encounter Summary ---
Author Organization [facility] [place] [address] Care Team Providers Care Extraction Operator Name Role Phone Catracho Vernon MD Primary Care Provider [phone] Reason for Visit * Reason Onset Date Comments Labs Only 05/19/2021 Lab Tracking Encounter Details Date Type Department Care Team (Late st Contact Info) Description 05/19/2021 Telephone Hematology/Oncology at [address] [address] Bird Kohli, RN Labs Only [...] Telephone Encounter - Bird Kohli RN - 05/19/2021 8:47 AM EDT LAB TRACKING Torrey Conteh : 1945 DIAGNOSIS: ITP LABS ORDERED: cbc/diff every 3 weeks at [facility], also needs CMP if getting [...] agreement with plan. Spoke with Torrey, she will have CBC again in 3 weeks, due 06/08/21. She will call sooner with any changes or concerns. Results for TORREY CONTEH ( ) as of 05/19/2021 08:48 Ref. Range 03/30/2021 00:00 04/14/2021 00:00 04/27/2021 00:00 05/18/2021 00:00 WBC Unknown 6.19 5.52 4.68 5.82 Hemoglobin Unknown 15.3 14.3 13.9 14.3 Hematocrit Unknown 45.8 43.4 42.4 43.0 MCV Unknown 91.9 91.6 89.8 Platelets Unknown [address] % Unknown 1.6 Neutr Abs (ANC) Unknown 4.56 3.57 2.79 3.47 BUN Unknown 17 Creatinine Unknown 0.82 LDH Unknown 207 documented in this encounter Plan of Treatment Upcoming Encounters Date Type Department Care Team (Late st Contact Info) Description 02/22/2024 1:00 PM EDT Office Visit Hematology/Oncology at [address] [address] Carrie Bruno MD [facility] DR HEMATOLOGY/[place] [address] Oliva Mccabe APRN [facility] HEMATOLOGY/[place] [address] 09/11/2024 1:00 PM EST Office Visit Dermatology at [facility] [address] [place] [address] Lizeth Hallman MD [facility] [place]TA [place] [address] documented as of this encounter Procedures Procedure Name Priority Date/Time Associated Diagnosis Comments CBC (WITH DIFF) Routine 05/18/2021 documented in this encounter Results * CBC (with Diff) (05/18/2021) WBC 5.82 Hemoglobin 14.3 Hematocrit 43.0 MCV 89.8 Platelets 114 Neutr Abs (ANC) 3.47 Blood Historical Provider HEMATOLOGY ORDERA BLES documented in this encounter Visit Diagnoses Not on filedocumented in this encounter Care Teams Extraction Operator Relationship Specialty Start Date End Date Catracho Vernon MD [address] [place] [address] PCP - General Family Medicine 04/21/18 documented as of this encounter
--- OUTSIDE RECORDS SUMMARY | 2024-02-21 01:29 | XMS_ITS | Encounter Summary ---
Author Organization [facility] Address [facility] [place] [address] Care Team Providers Care Spot Washer Name Role Phone Catracho Vernon MD Primary Care Provider [phone] Encounter Details Date Type Department Care Team (Late st Contact Info) Description 01/07/2021 10:30 AM EDT Office Visit Hematology/Oncology at [address] [address] Stacey Bhatt, ENGINEERING VICE PRESIDENT [facility] DR HEMATOLOGY/[place] [address] Thrombocytopenia Social History Tobacco Use Types Packs/Day Years Used Date Smoking Tobacco: Never Smokeless Tobacco: Never Sex and Gender Information Value Date Recorded Sex Assigned at Not on file Gender Identity Female 08/21/2020 5:05 PM EST Sexual Orientation Not on file documented as of this encounter Last Filed Vital Signs Vital Sign Reading Time Taken Comments Blood Pressure 156/80 01/07/2021 10:35 AM EDT Pulse 70 01/07/2021 10:35 AM EDT Temperature 36.7 ??C (98.1 ??F) 01/07/2021 1 0:35 AM EDT Respiratory Rate 18 01/07/2021 10:3 5 AM EDT Oxygen Saturation 98% 01/07/2021 10: 35 AM EDT Inhaled Oxygen Concentration - - Weight 69.3 kg (152 lb 12.8 oz) 021 10:35 AM EDT Height 160 cm (5' 2.99) 01/07/2021 10: 35 AM EDT Body Mass Index 27.07 01/07/2021 10:35 AM EDT documented in this encounter Progress Notes * YazminalfieEmilyalma Fletcher, ENGINEERING VICE PRESIDENT - 01/07/2021 10:30 AM EDT Subjective: Patient ID: Shanita Francisco is a 75 y.o. female here for f/u of ITP Patient Active Problem List Diagnosis ??? Spinal stenosis at L4-L5 level ??? 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 Nevus ??? Healthcare maintenance HPI Nolan had labs done this week and her platelets have again fallen to below 30K. She has been very hesitant to take therapy for her ITP. She was going to get Rituxan earlier this year but held off inorder to get Covid -19 Vaccine, which she did. She has take pulse dex in the past - but has had usual dex side effects which were dose limiting for her, She only completed 3 or 4 pulses. She has always responded to IVIG. She has no other new symptoms. NO s/sx of bleeding or bruising at this time. No recent infections. Review of Systems Constitutional: Negative. HENT: Negative. Eyes: Negative. Respiratory: Negative. Negative for cough and shortness of breath. Cardiovascular: Negative. Negative for chest pain, palpitations and leg swelling. Gastrointestinal: Negative. Negative for constipation, diarrhea, nausea and vomiting. She does still have her chronic diarrhea. She took one dose of immodium which seemed to help, but she did not repeat. She also reports that she is UTD on colo screening - however she is unsure of when this was last done. She has not tried probiotics Genitourinary: Negative. Musculoskeletal: Negative. Skin: Negative. Neurological: Negative. Negative for weakness and numbness. Psychiatric/Behavioral: Negative. Objective: Physical Exam Constitutional: General: She is not in acute distress. Appearance: She is well-developed. HENT: Head: Atraumatic. Mouth/Throat: Pharynx: No oropharyngeal exudate. Eyes: Conjunctiva/sclera: Conjunctivae normal. Cardiovascular: Rate and Rhythm: Normal rate and regular rhythm. Heart sounds: Normal heart sounds. No murmur heard. Pulmonary: Effort: Pulmonary effort is normal. Breath sounds: Normal breath sounds. No wheezing or rales. Abdominal: General: Bowel sounds are normal. Palpations: Abdomen is soft. There is no mass. Tenderness: There is no abdominal tenderness. Musculoskeletal: General: Normal range of motion. Cervical back: Normal range of motion and neck supple. Lymphadenopathy: Cervical: No cervical adenopathy. Upper Body: Right upper body: No supraclavicular adenopathy. Left upper body: No supraclavicular adenopathy. Skin: General: Skin is warm and dry. Neurological: Mental Status: She is alert. Lab Results Component Value Date WBC 4.12 01/06/2021 HGB 13.7 01/06/2021 HCT 41.3 01/06/2021 MCV 88.6 01/06/2021 PLATELET 28 (ExtLL) 01/06/2021 Chemistry Component Value Date/Time NA 140 07/28/2020 0000 K 3.8 07/28/2020 0000 BUN 24 12/15/2020 0000 CREATININE 0.9 12/15/2020 0000 Component Value Date/Time CALCIUM 9.4 07/28/2020 0000 ALKPHOS 74 09/01/2020 0000 AST 32 09/01/2020 0000 ALT 42 09/08/2020 0000 BILITOT 0.5 07/28/2020 0000 BP 156/80 (Patient Position: Sitting) Pulse 70 Temp 36.7 ??C (98.1 ??F) (Temporal) Resp 18 Ht 160 cm (5' 2.99) Wt 69.3 kg (152 lb 12.8 oz) SpO2 98% BMI 27.07 kg/m?? Assessment and Plan: Shanita Francisco is a 75 year old female with chronic ITP. It was initially detected in June 2017, when her platelets were 11. This was roughly 1-2 weeks after receiving the flu shot, which has been the only potential trigger identified. In Apr 2018, her platelets fell to 31, without apparent trigger, and she was treated with Dex 40 x 4 days, with good response. with her platelet count rebounding over 100,000. She then settled down, as he suspected she would, to a platelet count between 100,000- 120,000. This seemed to be her baseline. ?? Relapse July 2020. Dexamethasone 40 mg x 4 days given 07/16-07/19/2020 with good response. She was then set up for Rituxan. But with COVID 19 vaccine becoming available - this was held in order for her to get vaccinates which she has done. ?? We have discussed both IVIG and rituxan and respective SFX of either a couple times in the past with Dr. Bruno. Her last 4-day course of dexamethasone was in August 2020 At this time with platelets again below 30K we will go ahead and give her IVIG - we reviewed how this will be a temporary treatment. At the same time we will get her going on Rituxan 100mg weekly for4 weeks. Because of family coming to visit and trip this will not start until January 16. The IVIG she gets this week should hopefully keep her platelet count up long enough for Rituxan to begin to work. She may also need additional Dex with the Rituxan = but she is hesitant to do this. I will have her review with Dr. Bruno prior ot her starting the Rituxan. ?? For now we will schedule her for Rituxan 100mg on January 16, , and , IVIg daily for 2 days starting tomorrow. She will follow up with Dr. Bruno prior to initiating the Rituxan. ?? #2 - Chronic Diarrhea - encouraged her to use immodium when necessary as per her PCP. Also encouraged her to consider trial of Probiotics and to follow with PCP. I did reiterate that her chronic diarrhea is unlikley caused by the pulse of dex which she had in July. ?? I discussed all of the above with the patient and all of her questions were answered. Support and counseling given as appropriate. Shanita Francisco knows that she can call us any time with questions orconcerns. ?? documented in this encounter Plan of Treatment Upcoming Encounters Date Type Department Care Team (Late st Contact Info) Description 02/22/2024 1:00 PM EDT Office Visit Hematology/Oncology at [address] [address] Carrie Bruno MD [facility] HEMATOLOGY/[place] [address] 529- Oliva Mccabe APRN [facility] HEMATOLOGY/[place] [address] 09/11/2024 1:00 PM EST Office Visit Dermatology at [facility] [address] [place] [phone] Lizeth Hallman MD [facility] DR DONTA [place] [address] documented as of this encounter Visit Diagnoses Diagnosis Thrombocytopenia Thrombocytopenia, unspecified documented in this encounter Care Teams Spot Washer Relationship Specialty Start Date End Date Catracho Vernon MD [address] [place] [address] PCP - General Family Medicine 04/21/18 documented as of this encounter
--- OUTSIDE RECORDS SUMMARY | 2024-02-21 01:29 | XMS_ITS | Encounter Summary ---
Author Organization [facility] Address [facility] [place] [address] Care Team Providers Care Supervisor Show Operations Name Role Phone Catracho Vernon MD Primary Care Provider [phone] Reason for Referral * Diagnostic Test (Routine) - Closed Specialty Diagnoses / Procedures Referred By Contac t Referred To Contact Radiology Diagnoses Thrombocytopenia Procedures CT Chest Abdomen Pelvis w Contrast (Generic) Carrie Bruno MD [facility] DR HEMATOLOGY/[place] [address] [facility] [place] [address] Referral ID Status Reason Start Date Expiration Date V isits Requested Visits Authorized [id number] Closed Specialty Service Requested 02/04/2021 08/07/2022 1 1 Reason for Visit * Diagnostic Test (Routine) - Closed Specialty Diagnoses / Procedures Referred By Contac t Referred To Contact Radiology Diagnoses Thrombocytopenia Procedures CT Chest Abdomen Pelvis w Contrast (Generic) Carrie Bruno MD [facility] DR HEMATOLOGY/[place] [address] [facility] [place] [address] Referral ID Status Reason Start Date Expiration Date V isits Requested Visits Authorized [id number] Closed Specialty Service Requested 02/04/2021 08/07/2022 1 1 Encounter Details Date Type Department Care Team (Latest Contact Info) Description 03/03/2021 7:39 AM EDT - 03/03/2021 11:59 PM EDT Hospital [place] [address] Carrie Bruno MD [facility] HEMATOLOGY/[place] [address] Thrombocytopenia Discharge Disposition: Home Social History Tobacco [...] 1:00 PM EDT Office Visit Hematology/Oncology at [address] [address] Carrie Bruno MD [facility] HEMATOLOGY/[place] [address] TerrebonneOliva pittman APRN [facility] HEMATOLOGY/[place] [address] 09/11/2024 1:00 PM EST Office Visit Dermatology at [facility] [address] [place] [phone] Lizeth Hallman MD [facility] DR DONTA [place] [address] documented as of this encounter Procedures Procedure Name Priority Date/Time Associated Diagnosis Comments CT CHEST ABDOMEN PELVIS W CONTRAST (GENERIC) Routine 03/03/2021 9:59 AM EDT Thrombocytopenia documented in this encounter Results * CT Chest Abdomen Pelvis w Contrast (Generic) (03/03/2021 9:59 AM EDT) Anatomical Region Laterality Modality Abdomen, Pelvis Computed Tomogra phy 03/03/2021 10:1 8 AM EDT Impressions 03/03/2021 10:34 AM EDT Diffuse sclerosis and lucency throughout the bones, concerning for a myeloproliferative disorder. Consider correlation with bone scan and bone marrow biopsy. Normal spleen size. No enlarged lymph nodes. Dilated common bile duct of unknown etiology. Correlate with LFTs. Multiple gallstones with gallbladder wall thickening. Correlate with chronic cholecystitis. Thank you for letting us participate in the care of this patient. ??If you are a health care provider and have any questions regarding this report, please contact the number below. ??For patients who have questions please contact the health client care coordinator that requested your imaging first. ? 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 Administered 82.0 ml of OMNIPAQUE 350.00 mg/ml. Oral contrast was administered. COMPARISON: None FINDINGS: Chest: Mediastinum: There are coronary artery calcifications. No pericardial effusion. Normal heart size. No aortic aneurysm. Descending aorta is tortuous. No enlarged mediastinal or hilar lymph nodes. Lungs: Airways are patent. Small calcified granuloma within the right middle lobe. No suspicious pulmonary nodule. No consolidation. Pleura: Normal Bones and soft tissues: No enlarged axillary lymph nodes. Partially imaged osteoarthropathy of bilateral glenohumeral joints, left greater than right. There is diffuse lucency and sclerosis throughout all of the bones, including the ribs and the spine. There is multilevel degenerative change. Intact vertebral body heights. Abdomen/pelvis: Liver: Tiny cyst within the right lobe the liver. Normal size of the liver and enhancement. Biliary system: Multiple calcified gallstones throughout the gallbladder. The gallbladder wall is diffusely thickened. There is no adjacent fat stranding fluid. No intrahepatic biliary dilation. Common bile duct measures up to 11 mm with smooth tapering at the ampulla. Pancreas: Normal enhancement. No mass. No ductal dilation. Spleen: 9.7 cm. Normal size and enhancement. Adrenal glands: normal Kidneys: normal Bowel: Stomach is not dilated. No bowel obstruction or bowel wall thickening. Mesentery, omentum, and peritoneum: No pneumoperitoneum or fluid. Pelvic organs: normal Lymph nodes: not enlarged Vasculature: Mild calcification. No abdominal aortic aneurysm. Retroperitoneum: no mass or hemorrhage Bones and soft tissues: Intact vertebral body heights. Diffuse lucency and sclerosis throughout the bones including the spine and pelvis and bilateral hips. Severe disc height loss at L5-S1. Multilevel facet degeneration. Grade 1 anterolisthesis of L4 on L5. 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 Administered 82.0 ml ofOMNIPAQUE 350.00 mg/ml. Oral contrast was administered. COMPARISON: None FINDINGS: Chest: Mediastinum: There are coronary artery calcifications. No pericardialeffusion. Normal heart size. No aortic aneurysm. Descending aorta is tortuous. Noenlarged mediastinal or hilar lymph nodes. Lungs: Airways are patent. Small calcified granuloma within the rightmiddle lobe. No suspicious pulmonary nodule. No consolidation. Pleura: Normal Bones and soft tissues: No enlarged axillary lymph nodes. Partiallyimaged osteoarthropathy of bilateral glenohumeral joints, left greater thanright. There is diffuse lucency and sclerosis throughout all of the bones,including the ribs and the spine. There is multilevel degenerative change. Intact vertebral body heights. Abdomen/pelvis: Liver: Tiny cyst within the right lobe the liver. Normal size of the liverand enhancement. Biliary system: Multiple calcified gallstones throughout the gallbladder.The gallbladder wall is diffusely thickened. There is no adjacent fatstranding fluid. No intrahepatic biliary dilation. Common bile duct measures up to11 mm with smooth tapering at the ampulla. Pancreas: Normal enhancement. No mass. No ductal dilation. Spleen: 9.7 cm. Normal size and enhancement. Adrenal glands: normal Kidneys: normal Bowel: Stomach is not dilated. No bowel obstruction or bowel wallthickening. Mesentery, omentum, and peritoneum: No pneumoperitoneum or fluid. Pelvic organs: normal Lymph nodes: not enlarged Vasculature: Mild calcification. No abdominal aortic aneurysm. Retroperitoneum: no mass or hemorrhage Bones and soft tissues: Intact vertebral body heights. Diffuse lucencyand sclerosis throughout the bones including the spine and pelvis andbilateral hips. Severe disc height loss at L5-S1. Multilevel facet degeneration.Grade 1 anterolisthesis of L4 on L5. IMPRESSION Diffuse sclerosis and lucency throughout the bones, concerning for a myeloproliferative disorder. Consider correlation with bone scan and bonemarrow biopsy. Normal spleen size. No enlarged lymph nodes. Dilated common bile duct of unknown etiology. Correlate with LFTs. Multiple gallstones with gallbladder wall thickening. Correlate withchronic cholecystitis. Thank you for letting us participate in the care of this patient. If youare a health care provider and have any questions regarding this report,please contact the number below. For patients who have questions please contactthe health client care coordinator that requested your imaging first. Carrie Bruno MD IMG CT ORDERABLE S documented in this encounter Visit Diagnoses Diagnosis Thrombocytopenia Thrombocytopenia, unspecified documented in this encounter Administered Medications Inactive Administered Medications - up to 3 most recent administrations Medication Order MAR Action Action Date Dose Rate Site iohexoL (Omnipaque) (350 mg/mL) injection solution 0-200 mL 0-200 mL, Intravenous, ONCE PRN, 1 dose, Starting on Tue03/03/21 at 0959, Until Tue03/03/21 at 0959, Per Protocol, Warning Vesicant/Irritant Medication , Radiology Contrast, Routine Given 03/03/2021 9:59 AM EDT 82 mLs iohexoL (Omnipaque) (350 mg/mL) injection solution 0-50 mL 0-50 mL, Oral, ONCE PRN, 1 dose, Starting on Tue03/03/21 at 0959, Until Tue03/03/21 at 0959, Per Protocol, Warning Vesicant/Irritant Medication , Radiology Contrast, Routine Given 03/03/2021 9:59 AM EDT 50 mLs documented in this encounter Care Teams Supervisor Show Operations Relationship Specialty Start Date End Date Catracho Vernon MD [facility] [place] [address] PCP - General Family Medicine 04/21/18 documented as of this encounter
--- OUTSIDE RECORDS SUMMARY | 2024-02-21 01:29 | XMS_ITS | Encounter Summary ---
Author Organization [facility] [place] [address] Care Team Providers Care Tile And Marble Setter Name Role Phone Catracho Vernon MD Primary Care Provider [phone] Reason for Visit * Reason Onset Date Comments Follow-up 11/28/2020 Encounter Details Date Type Department Care Team (Late st Contact Info) Description 11/28/2020 Telephone Hematology/Oncology at [address] [phone] Jackie Salinas RN Follow-up Social History Tobacco Use Types Packs/Day Years Used Date Smoking Tobacco: Never Smokeless Tobacco: Never Sex and Gender Information Value Date Recorded Sex Assigned at Not on file Gender Identity Female 08/21/2020 5:05 PM EST Sexual Orientation Not on file documented as of this encounter Miscellaneous Notes * Telephone Encounter - Jackie Salinas RN - 11/28/2020 3:13 PM EDT Left message for pt that her stool specimens were negative for c-diff, giardia, crptosporidium per Dr. Bruno. She will call with questions or concerns. documented in this encounter Plan of Treatment Upcoming Encounters Date Type Department Care Team (Late st Contact Info) Description 02/22/2024 1:00 PM EDT Office Visit Hematology/Oncology at [address] [address] Carrie Bruno MD [facility] DR HEMATOLOGY/[place] [address] Oliva Mccabe APRN [facility] HEMATOLOGY/[place] [address] 09/11/2024 1:00 PM EST Office Visit Dermatology at [facility] [address] [place] [address] Lizeth Hallman MD [facility] [place] [address] documented as of this encounter Visit Diagnoses Not on filedocumented in this encounter Care Teams Tile And Marble Setter Relationship Specialty Start Date End Date Catracho Vernon MD [facility] [place] [address] PCP - General Family Medicine 04/21/18 documented as of this encounter
--- OUTSIDE RECORDS SUMMARY | 2024-02-21 01:29 | XMS_ITS | Encounter Summary ---
Author Organization [facility] [place] [address] Care Team Providers Care Carpet Winder Name Role Phone Catracho Vernon MD Primary Care Provider Reason for Visit * Reason Onset Date Comments Labs Only 06/09/2021 Lab Tracking Encounter Details Date Type Department Care Team (Late st Contact Info) Description 06/09/2021 Telephone Hematology/Oncology at [address] [phone] Bird Kohli, RN Labs Only [...] Telephone Encounter - Bird Kohli RN - 06/09/2021 9:11 AM EST LAB TRACKING Torrey Conteh : 1945 DIAGNOSIS: ITP LABS ORDERED: cbc/diff every [address] [facility], also needs CMP if getting IVIG [...] plan. Spoke with Torrey, she will have labs again in 4 weeks, due 07/06/21. She will call sooner with any changes or concerns. Results for TORREY CONTEH ( ) as of 06/09/2021 09:12 Ref. Range 04/14/2021 00:00 04/27/2021 00:00 05/18/2021 00:00 06/08/2021 00:00 WBC Unknown 5.52 4.68 5.82 9.01 Hemoglobin Unknown 14.3 13.9 14.3 14.0 Hematocrit Unknown 43.4 42.4 43.0 42.2 MCV Unknown 91.9 91.6 89.8 90.9 Platelets Unknown 110 129 114 131 Neutr Abs (ANC) Unknown 3.57 2.79 3.47 6.46 documented in this encounter Plan of Treatment Upcoming Encounters Date Type Department Care Team (Late st Contact Info) Description 02/22/2024 1:00 PM EDT Office Visit Hematology/Oncology at [address] [address] Carrie Bruno MD [facility] DR HEMATOLOGY/[place] [address] Oliva Mccabe, PHARMACY TECHNICIAN PER DIEM [facility] HEMATOLOGY/[place] [address] 09/11/2024 1:00 PM EST Office Visit Dermatology at [facility] [address] [address] Lizeth Hallman MD [facility] DR DONTA [place] [address] documented as of this encounter Procedures Procedure Name Priority Date/Time Associated Diagnosis Comments CBC (WITH DIFF) Routine 06/08/2021 documented in this encounter Results * CBC (with Diff) (06/08/2021) WBC 9.01 Hemoglobin 14.0 Hematocrit 42.2 MCV 90.9 Platelets 131 Neutr Abs (ANC) 6.46 Blood Historical Provider HEMATOLOGY ORDERA BLES documented in this encounter Visit Diagnoses Not on filedocumented in this encounter Care Teams Carpet Winder Relationship Specialty Start Date End Date Catracho Vernon MD [address] [place] [address] PCP - General Family Medicine 04/21/18 documented as of this encounter
--- OUTSIDE RECORDS SUMMARY | 2024-02-21 01:29 | XMS_ITS | Encounter Summary ---
Author Organization [facility] Address [facility] [place] [address] Care Team Providers Care Neurocritical Care Physician Name Role Phone Catracho Vernon MD Primary Care Provider [phone] Reason for Visit * Reason Comments Chemotherapy rituxan day 1 * Treatment/Therapy Plan Authorization (Routine) - Pending Review Specialty Diagnoses / Procedures Referred By Edson t Referred To Contact Diagnoses Thrombocytopenia Stacey Bhatt, [employer]ER [facility] HEMATOLOGY/[place] [address] Referral ID Status Reason Start Date Expiration Date V isits Requested Visits Authorized [id number] Pending Review 01/14/2021 01/14/2022 99 99 Encounter Details Date Type Department Care Team (Late st Contact Info) Description 01/16/2021 8:00 AM EDT Infusion Hematology Oncology at [address] [phone] Thrombocytopenia Social History Tobacco Use Types Packs/Day Years Used Date Smoking Tobacco: Never Smokeless Tobacco: Never Sex and Gender Information Value Date Recorded Sex Assigned at Not on file Gender Identity Female 08/21/2020 5:05 PM EST Sexual Orientation Not on file documented as of this encounter Last Filed Vital Signs Vital Sign Reading Time Taken Comments Blood Pressure 147/72 01/16/2021 8:10 AM EDT Pulse 67 01/16/2021 8:10 AM EDT Temperature 36.4 ??C (97.5 ??F) 01/16/2021 8:10 AM ED T Respiratory Rate 20 01/16/2021 8:10 AM EDT Oxygen Saturation 100% 01/16/2021 8:10 AM EDT Inhaled Oxygen Concentration - - Weight 71.7 kg (158 lb) 01/16/2021 8:10 AM EDT Height 160 cm (5' 2.99) 01/16/2021 8:10 AM EDT Body Mass Index 28 01/16/2021 8:10 AM EDT documented in this encounter Progress Notes * Jackie Salinas RN - 01/16/2021 8:00 AM EDT INFUSION THERAPY ADMINISTRATION NOTES TIME TREATMENT STARTED: 0800 TIME TREATMENT ENDED: 1054 DIAGNOSIS: ITP PROTOCOL:na CYCLE #: 1 REASON FOR VISIT: rituxan SUBJECTIVE Shanita Noel Francisco offers no complaints. OBJECTIVE LAB DATA: Labs reviewed and found adequate for treatment. PLT 92 PIV in right wrist excellent blood return before during and after infusion Pre administration: Chemotherapy orders independently verified for drug name, route, and dosage per patient's height, weight and BSA by Kieran and Jacqui guardado pharmasit. First time rate 25 cc/hr for 13 ccs, then 50 cc/hr for 38ccs, then 75cc/hr till done. REACTIONS (DESCRIPTION, TIME, INTERVENTION AND EFFECTIVENESS) none ASSESSMENT Shanita Noel Francisco was awake, alert and he tolerated treatment well. PLAN Return to clinic on 01/26/21 with labs before documented in this encounter Plan of Treatment Upcoming Encounters Date Type Department Care Team (Late st Contact Info) Description 02/22/2024 1:00 PM EDT Office Visit Hematology/Oncology at [address] [phone] Carrie Bruno MD [facility] DR HEMATOLOGY/[place] [address] Oliva Mccabe, [employer] [facility] HEMATOLOGY/[place] [address] 09/11/2024 1:00 PM EST Office Visit Dermatology at [facility] [address] [place] [address] Lizeth Hallman MD [facility] [place] DON[place] [address] documented as of this encounter Visit Diagnoses Diagnosis Thrombocytopenia Thrombocytopenia, unspecified documented in this encounter Administered Medications Inactive Administered Medications - up to 3 most recent administrations Medication Order MAR Action Action Date Dose Rate Site acetaminophen (Tylenol) tablet 650 mg 650 mg, Oral, ONCE, 1 dose, On Tue01/16/21 at 0830, To be given before riTUXimab infusion, Routine Given 01/16/2021 8:44 AM EDT 650 mg diphenhydrAMINE (Benadryl) (50 mg/mL) injection 25 mg 25 mg, Intravenous, ONCE, 1 dose, On Tue01/16/21 at 0830, To be given before riTUXimab infusion, Routine Given 01/16/2021 8:45 AM EDT 25 mg riTUXimab (Rituxan) 100 mg in sodium chloride 0.9% 50 mL infusion 100 mg, Intravenous, ONCE, 1 dose, On Tue01/16/21 at 0830, Administer per protocol, RITUXAN is NON-PREFERRED brand. Please indicate why RITUXAN is specifically required (vs. preferred RUXIENCE brand): Patient? s insurance (payer) does not cover Ruxience New Bag 01/16/2021 9:31 AM EDT 100 mg documented in this encounter Care Teams Neurocritical Care Physician Relationship Specialty Start Date End Date Catracho Vernon MD [facility] [place] [address] PCP - General Family Medicine 04/21/18 documented as of this encounter
--- OUTSIDE RECORDS SUMMARY | 2024-02-21 01:29 | XMS_ITS | Encounter Summary ---
Author Organization [facility] Address [facility] [place] [address] Care Team Providers Care Bobbin Presser Name Role Phone Catracho Vernon MD Primary Care Provider [phone] Reason for Visit * Reason Comments IV Medication Rituxan * Treatment/Therapy Plan Authorization (Routine) - Pending Review Specialty Diagnoses / Procedures Referred By Edson t Referred To Contact Diagnoses Thrombocytopenia Stacey Bhatt, [employer]SEM[employer]Y [employer] WORK[employer] [facility] HEMATOLOGY/[place] [address] Referral ID Status Reason Start Date Expiration Date V isits Requested Visits Authorized [id number] Pending Review 01/14/2021 01/14/2022 99 99 Encounter Details Date Type Department Care Team (Late st Contact Info) Description 02/03/2021 8:00 AM EDT Infusion Hematology Oncology at [address] [phone] Thrombocytopenia Social History Tobacco Use Types Packs/Day Years Used Date Smoking Tobacco: Never Smokeless Tobacco: Never Sex and Gender Information Value Date Recorded Sex Assigned at Not on file Gender Identity Female 08/21/2020 5:05 PM EST Sexual Orientation Not on file documented as of this encounter Last Filed Vital Signs Vital Sign Reading Time Taken Comments Blood Pressure 142/65 02/03/2021 8:21 AM EDT Pulse 70 02/03/2021 8:21 AM EDT Temperature 36.4 ??C (97.5 ??F) 02/03/2021 8:21 AM ED T Respiratory Rate 20 02/03/2021 8:21 AM EDT Oxygen Saturation 99% 02/03/2021 8:21 AM EDT Inhaled Oxygen Concentration - - Weight 72.7 kg (160 lb 3.2 oz) 02/03/2021 8:21 A M EDT Height 160 cm (5' 2.99) 02/03/2021 8:21 AM EDT Body Mass Index 28.39 02/03/2021 8:21 AM EDT documented in this encounter Progress Notes * Madison Corrales, RN - 02/03/2021 8:00 AM EDT INFUSION THERAPY ADMINISTRATION NOTES DIAGNOSIS: ITP Week #2 REASON FOR VISIT: Rituxan infusion SUBJECTIVE Shanita Noel Francisco offers no complaints. OBJECTIVE LAB DATA: PLTS 34 IV ACCESS: PIV right hand. Pre administration: Chemotherapy orders independently verified for drug name, route, and dosage per patient's height, weight and BSA by Madison Corrales, [employer] & On-site pharmicist. REACTIONS (DESCRIPTION, TIME, INTERVENTION AND EFFECTIVENESS) none ASSESSMENT Shanita Noel Francisco was awake, alert and tolerated treatment well. PLAN Return to clinic as scheduled. documented in this encounter Plan of Treatment Upcoming Encounters Date Type Department Care Team (Late st Contact Info) Description 02/22/2024 1:00 PM EDT Office Visit Hematology/Oncology at [address] [phone] Carrie Bruno MD [facility] DR HEMATOLOGY/[place] [address] Oliva Mccabe, [employer] WORK[employer] [facility] DR HEMATOLOGY/[place] [address] 09/11/2024 1:00 PM EST Office Visit Dermatology at [facility] [address] [place] [address] Lizeth Hallman MD [facility] [place] [address] documented as of this encounter Visit Diagnoses Diagnosis Thrombocytopenia Thrombocytopenia, unspecified documented in this encounter Administered Medications Inactive Administered Medications - up to 3 most recent administrations Medication Order MAR Action Action Date Dose Rate Site acetaminophen (Tylenol) tablet 650 mg 650 mg, Oral, ONCE, 1 dose, On Tue02/03/21 at 0845, To be given before riTUXimab infusion, Routine Given 02/03/2021 8:41 AM EDT 650 mg diphenhydrAMINE (Benadryl) (50 mg/mL) injection 25 mg 25 mg, Intravenous, ONCE, 1 dose, On Tue02/03/21 at 0845, To be given before riTUXimab infusion, Routine Given 02/03/2021 8:42 AM EDT 25 mg riTUXimab (Rituxan) 100 mg in sodium chloride 0.9% 50 mL infusion 100 mg, Intravenous, ONCE, 1 dose, On Tue02/03/21 at 0845, Administer per protocol, RITUXAN is NON-PREFERRED brand. Please indicate why RITUXAN is specifically required (vs. preferred RUXIENCE brand): Patient? s insurance (payer) does not cover Ruxience New Bag 02/03/2021 9:21 AM EDT 100 mg documented in this encounter Care Teams Bobbin Presser Relationship Specialty Start Date End Date Catracho Vernon MD [address] [place] [address] [place] [address] PCP - General Family Medicine 04/21/18 documented as of this encounter
--- OUTSIDE RECORDS SUMMARY | 2024-02-21 01:29 | XMS_ITS | Encounter Summary ---
Author Organization [facility] [place] [address] Care Team Providers Care Quill Picking Machine Operator Name Role Phone Catracho Vernon MD Primary Care Provider [phone] Reason for Visit * Reason Onset Date Comments Labs Only 04/15/2021 Lab Tracking Encounter Details Date Type Department Care Team (Late st Contact Info) Description 04/15/2021 Telephone Hematology/Oncology at [address] [phone] Bird Kohli, RN Labs Only [...] Telephone Encounter - Bird Kohli RN - 04/15/2021 9:44 AM EDT LAB TRACKING Torrey Conteh : 1945 DIAGNOSIS: ITP LABS ORDERED: cbc/diff every other week at [facility], also needs CMP if getting IVIG MEDICATIONS: 07/16/20- dexamethasone 40 IV day one then daily for 3 days 08/05/20-08/08/20 dexamethasone 40 mg po x4 days IVIG- 12/15,12/16,01/08, 01/09 Rituxan to start 01/16- 4 doses given Pred 40 mg x4 days 02/19/21-02/22/21 Assessment/Plan: Plan is every 2 week CBC with RN tracking. Plan IVIG or dexamethasone for platelets close to or less than 30,000. We will put a hold on getting a BMBx for now, she in in agreement with plan. Results for TORREY CONTEH ( ) as of 04/15/2021 09:46 Ref. Range 03/17/2021 00:00 03/30/2021 00:00 04/14/2021 00:00 WBC Unknown 5.63 6.19 5.52 Hemoglobin Unknown 13.7 15.3 14.3 Hematocrit Unknown 42.3 45.8 43.4 MCV Unknown 90.4 91.9 Platelets Unknown [address] % Unknown 1.6 Neutr Abs (ANC) Unknown 3.64 4.56 3.57 BUN Unknown 17 Creatinine Unknown 0.82 LDH Unknown 207 documented in this encounter Plan of Treatment Upcoming Encounters Date Type Department Care Team (Late st Contact Info) Description 02/22/2024 1:00 PM EDT Office Visit Hematology/Oncology at [address] [phone] Carrie Bruno MD [facility] DR HEMATOLOGY/[place] [address] Oliva Mccabe APRN [facility] DR HEMATOLOGY/[place] [address] 09/11/2024 1:00 PM EST Office Visit Dermatology at [facility] [address] [place] [phone] Lizeth Hallman MD [facility] [address] [place] [address] documented as of this encounter Procedures Procedure Name Priority Date/Time Associated Diagnosis Comments CBC (WITH DIFF) Routine 04/14/2021 documented in this encounter Results * CBC (with Diff) (04/14/2021) WBC 5.52 Hemoglobin 14.3 Hematocrit 43.4 MCV 91.9 Platelets 110 Neutr Abs (ANC) 3.57 Blood Historical Provider HEMATOLOGY ORDERA BLES documented in this encounter Visit Diagnoses Not on filedocumented in this encounter Care Teams Quill Picking Machine Operator Relationship Specialty Start Date End Date Catracho Vernon MD [address] [place] [address] PCP - General Family Medicine 04/21/18 documented as of this encounter
--- OUTSIDE RECORDS SUMMARY | 2024-02-21 01:29 | XMS_ITS | Encounter Summary ---
Author Organization [facility] [place] [address] Care Team Providers Care Merchandise Complaint Adjuster Name Role Phone Catracho Vernon MD Primary Care Provider [phone] Reason for Referral * Diagnostic Test (Routine) - Closed Specialty Diagnoses / Procedures Referred By Contac t Referred To Contact Radiology Diagnoses Thrombocytopenia Procedures CT Chest Abdomen Pelvis w Contrast (Generic) Carrie Heredia MD [facility] DR HEMATOLOGY/[place] [address] [facility] [place] [address] Referral ID Status Reason Start Date Expiration Date V isits Requested Visits Authorized [id number] Closed Specialty Service Requested 02/04/2021 08/07/2022 1 1 * Consultation (Routine) - Closed Specialty Diagnoses / Procedures Referred By Contac t Referred To Contact General Surgery Diagnoses Thrombocytopenia Carrie Heredia MD [facility] DR HEMATOLOGY/[place] [address] Ramiro Ley MD [facility] [place] [address] Referral ID Status Reason Start Date Expiration Date V isits Requested Visits Authorized [id number] Closed Consult, Test & Treat 02/04/2021 02/04/2022 1 1 Encounter Details Date Type Department Care Team (Late st Contact Info) Description 02/04/2021 9:30 AM EDT Office Visit Hematology/Oncology at [address] [phone] Carrie Heredia MD [facility] [address] HEMATOLOGY/[place] [address] Stacey Bhatt APRN [facility] HEMATOLOGY/[place] [address] Thrombocytopenia Social History Tobacco Use Types Packs/Day Years Used Date Smoking Tobacco: Never Smokeless Tobacco: Never Sex and Gender Information Value Date Recorded Sex Assigned at Not on file Gender Identity Female 08/21/2020 5:05 PM EST Sexual Orientation Not on file documented as of this encounter Last Filed Vital Signs Vital Sign Reading Time Taken Comments Blood Pressure 174/67 02/04/2021 9:32 AM EDT Pulse 73 02/04/2021 9:32 AM EDT Temperature 36 ??C (96.8 ??F) 02/04/2021 9:32 AM EDT Respiratory Rate 16 02/04/2021 9:32 AM EDT Oxygen Saturation 100% 02/04/2021 9:32 AM EDT Inhaled Oxygen Concentration - - Weight 71.7 kg (158 lb) 02/04/2021 9:32 AM EDT Height 160 cm (5' 2.99) 02/04/2021 9:32 AM EDT Body Mass Index 28 02/04/2021 9:32 AM EDT documented in this encounter Progress Notes * Carrie Heredia MD - 02/04/2021 9:30 AM EDT OUTPATIENT HEMATOLOGY/ ONCOLOGY CONSULTATION HISTORY PRESENT ILLNESS This patient is [...] epistaxis. No dark stools. No unanticipated bruising. Here to discuss next steps. She now understands that this is a chronic disease and will need chronic therapy. She is now fully COVID vaccinated. 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 50th wed anniversary in 2019! Rare ALFONSO Has children who work in [place] - her daughter and son-in-law work for [employer] in [place]. 2 boys. 3 children total and 4 grandchildren total. Retired [employer]. FAMILY HISTORY: Mother: CAD, renal Father: dementia Sibs: 3 sisters Afib; CAD, DM Children: healthy No autoimmune disorders MEDICATIONS AND ALLERGIES- reviewed at this visit Medications 02/04/21 0934 Medication Sig Taking? ergocalciferol, vitamin D2, (VITAMIN D ORAL) Take 1,000 mg by mouth daily. Yes Azelaic Acid (FINACEA) 15 % Gel After washing your face twice a day, apply a thin film of cream to affected areas of the face twice daily. Patient not taking: Reported on 11/26/2020 dexamethasone (Decadron) 4 mg Tablet Dex 40mg daily X 4 days and repeat q 3 weeks Patient not taking: Reported on 11/26/2020 TURMERIC ORAL Take 1 capsule by mouth daily. ubidecarenone (CO Q-10 ORAL) Take by mouth. PAST MEDICAL HISTORY- reviewed Patient Active Problem List Diagnosis Code ??? Healthcare maintenance Z00.00 ??? Nevus D22.9 ??? Thrombocytopenia D69.6 ??? Spinal stenosis at L4-L5 level M48.061 COMPREHENSIVE REVIEW OF SYSTEMS Besides what is mentioned in the HPI, all other systems are negative PHYSICAL EXAM BP 174/67 (Patient Position: Sitting) Pulse 73 Temp 36 ??C (96.8 ??F) (Temporal) Resp 16 Ht160 cm (5' 2.99) Wt 71.7 kg (158 lb) SpO2 100% BMI 28.00 kg/m?? Body surface area is 1.79 meters squared. GENERAL: Shanita Noel Nolan appears well and is in no acute [...] 07/28/20 Hep B and Hep C negative RADIOGRAPHIC EVALUATION As above PATHOLOGY EVALUATION As above ASSESSMENT: Shanita Francisco is a 75 y.o. female whom I [...] good response. Ms Francisco is a delightful 75 y.o. 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 Dr. Didier Jade treated her with dexamethasone 40 mg x 4 days in April2018. She had a nice response with her platelet count rebounding over 100,000. She is now settled down, as he suspected she would, to a platelet count between 100,000- 120,000. This seems to be her baseline. Now status post IVIG and is receiving weekly rituximab 100 mg flat dose. Despite this, she is only getting temporary moderate response to IVIG, and no clear response to rituximab today. It is a bit early to expect rituximab response. Her platelets have dropped despite these interventions. Most recent IVIG was on 01/16 and 01/17. When plt fall we can rescue her [...] Hospital as wecannot get levels easily. Shanita reports that for a week after each Dex she feels like I am in a different world unstable onher feet, and lightheaded. Dizzy. 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 Geremiaswed her understanding, which was quite accurate. To date she has not had a response to rituximab, but it is probably too early to building wrecker. She has been getting 100 mg per dose, we could try higherdose in the future if necessary. She feels that she could tolerate 1 more 4-day course of dexamethasone (40 mg/day) if necessary, but does not feel that she could tolerate the dexamethasone every 3 to 4 weeks. Although she gets an adequate response to IVIG, she does not want to spend that much timein the infusion room. We also discussed the pros and cons of splenectomy. She would need splenectomy vaccines prior. She knows there is a 50-50 response/care with splenectomy, but at her age she is reluctant to get surgery. After discussion, we decided to recheck her platelet count on 02/09. If it still going down then shewill take the dexamethasone 40 mg x 4 days. We can also use IVIG in emergent situations. She also requested a consultation to discuss splenectomy, and I referred her to Dr. LEY so that she can learnmore about the risks of laparoscopic splenectomy. Finally she will be gone on [facility] the last week of January. So work-up will schedule labs at [facility] and a CAT scan of the chest abdomen and pelvis first week of March. This is to be sure there is not an underlying lymphoma that has been missed. ?? Ref: Journal of Hematology 2013 Florentino-Jacque. Diarrhea - started w/ dex and never [...] 6 mos after completion of her rituximab. Bone density - PCP is ordering DEXA scan. Plan: ?? IVIG 1 g/kg/day x 2 days for plt less than 30k and fu appt. ?? Rituxan 100mg weekly X 4 ; status post week 3 ?? Hep B and hep C negative in July 2021. She no longer has adequate hep B antibodies, she willdiscuss the role of a booster vaccination with her PCP. ?? See PCP for HTN f/u ?? See PCP regarding DEXA scan ?? COVID vaccine X 2 completed mid Sep 2020 ?? Follow-up with PCP regarding diarrhea ?? Refer to Dr Ley for consultation regarding lap splenectomy. ?? Pt on vacation last week of January. ?? Labs and CT CAP at [facility] week of 03/02 - cbc, cmp, ldh, COVID spike ab test. I discussed all of the above with the patient and all of her questions were answered. Support and counseling given as appropriate. Shanita Francisco knows that she can call us any time with questions orconcerns. This note was written or modified using [employer] voice recognition software. The final note was screened for mistakes. Please excuse any remaining errors. CARRIE HEREDIA MD documented in this encounter Plan of Treatment Upcoming Encounters Date Type Department Care Team (Late st Contact Info) Description 02/22/2024 1:00 PM EDT Office Visit Hematology/Oncology at [address] [phone] Carrie Heredia MD [facility] HEMATOLOGY/[place] [address] Oliva Mccabe, MARBLE INSTALLATION HELPER [facility] HEMATOLOGY/[place] [address] 09/11/2024 1:00 PM EST Office Visit Dermatology at [facility] [address] [place] [address] Lizeth Hallman MD [facility] [place] [address] Scheduled Referrals Name Type Priority Associated Diagnoses Orde r Schedule Referral to General Surgery Outpatient Referral Routine Thrombocytopenia Ordered: 02/04/2021 documented as of this encounter Results * CT Chest Abdomen [...] who have questions please contact the health care transitions manager that requested your imaging first. ? Narrative [...] patients who have questions please contactthe health care transitions manager that requested your imaging first. Carrie Heredia MD IM CT ORDERABLE S * COVID-19 Rob Antibody (03/03/2021 7:27 AM EDT) SARS-CoV-2 Rob Ab Detected [facility] Comment: This is a [...] be due to a past infection with bcz-OEUZ-KrQ-2 coronavirus strains, such as coronavirus HKU1, NL63, OC43, or 229E. This test was performed using the [employer] Wfyq-BZYU-AmM-2 S total antibody assay on the Rafa Delon e801 analyzer. This serology test is available following FDA Emergency Use Authorization, however it has not been reviewed by the FDA, nor is it FDA cleared or approved. The performance characteristics of this test were determined by the Department of Pathology and Laboratory Medicine at [facility]. The laboratory is certified under the Clinical [...] fact sheets at the following FDA website: https://www.fda.gov/medical-devices/knauhuvarpk-fiuvyhs-3005-oobnx-53-vthlrjbeq- use-a natyxdncfuaqf-ljzicwx-dtupxlr/lssgt-hswcalsdyrr-ugcc Blood 03/03/2021 7:27 AM EDT 03/03/2021 7:48 AM EDT Carrie Heredia MD CHEMISTRY ORDERA PENG [facility] [place] [address] * Lactate Dehydrogenase (03/03/2021 7:27 AM EDT) Pathologist [facility] [place] LDH 177 110 - 220 unit/L [facility] Blood 03/03/2021 7:27 AM EDT 03/03/2021 7:48 AM EDT Narrative Resulting Agency Comment Spec In Lab Carrie Heredia MD CHEMISTRY ORDERA BLES [facility] [place] [address] * Comprehensive metabolic panel (non-fasting) (03/03/2021 7:27 AM EDT) [facility] Glucose Lvl 100 65 - 199 mg/dL [facility] Comment:Diabetes: >=200 mg/d L plus symptoms BUN 17 8 - 18 mg/dL [facility] Creatinine 0.86 0.70 - 1.20 mg/dL [facility] Sodium 142 135 - 145 mmol/L [facility] Potassium 3.6 3.5 - 5.0 mmol/L [facility] Comment: Please note: ??Patients with WBC >100,000 may have falsely elevated Potassium levels. ??For accurate Potassium quantification in these patients send serum separator tube (gold top) for subsequent determinations. ??Contact the Clinical Chemistry Laboratory if there are any questions. Chloride 106 98 - 107 mmol/L [facility] CO2 26 22 - 31 mmol/L [facility] Anion Gap 10 5 - 15 mmol/L [facility] Calcium 9.9 8.5 - 10.5 mg/dL [facility] Total Protein 6.7 6.1 - 8.0 gm/dL [facility] Albumin 4.0 3.2 - 5.2 gm/dL [facility] AST 15 0 - 30 unit/L [facility] ALT 25 0 - 30 unit/L [facility] Alk Phos 85 35 - 105 unit/L [facility] Total Bilirubin 0.2 0.2 - 1.3 mg/dL [facility] Estimated GFR 65 >=60 mL/min/1. 73 m?? [facility] Comment: This patient? s [...] Resulting Agency Comment Spec In Lab Carrie Heredia MD CHEMISTRY ORDERA BLES [facility] [place] [address] documented in this encounter Visit Diagnoses Diagnosis Thrombocytopenia Thrombocytopenia, unspecified Thrombocytopenia Thrombocytopenia, unspecified documented in this encounter Care Teams Merchandise Complaint Adjuster Relationship Specialty Start Date End Date Catracho Vernon [place] [address] [place] [address] PCP - General Family Medicine 04/21/18 documented as of this encounter
--- OUTSIDE RECORDS SUMMARY | 2024-02-21 01:29 | XMS_ITS | Encounter Summary ---
Author Organization [facility] Address [facility] [place] [address] Care Team Providers Care Steam Frame Operator Name Role Phone Catracho Vernon MD Primary Care Provider Reason for Visit * Reason Comments IV Medication Rituxan * Treatment/Therapy Plan Authorization (Routine) - Pending Review Specialty Diagnoses / Procedures Referred By Edson t Referred To Contact Diagnoses Thrombocytopenia Stacey Bhatt, TELECOMMUNICATIONS LINE MECHANIC [facility] HEMATOLOGY/[place] [address] Referral ID Status Reason Start Date Expiration Date V isits Requested Visits Authorized [id number] Pending Review 01/14/2021 01/14/2022 99 99 Encounter Details Date Type Department Care Team (Late st Contact Info) Description 02/11/2021 8:00 AM EDT Infusion Hematology Oncology at [address] [phone] Thrombocytopenia Social History Tobacco Use Types Packs/Day Years Used Date Smoking Tobacco: Never Smokeless Tobacco: Never Sex and Gender Information Value Date Recorded Sex Assigned at Not on file Gender Identity Female 08/21/2020 5:05 PM EST Sexual Orientation Not on file documented as of this encounter Last Filed Vital Signs Vital Sign Reading Time Taken Comments Blood Pressure 139/68 02/11/2021 8:16 AM EDT Pulse 63 02/11/2021 8:16 AM EDT Temperature 36.2 ??C (97.2 ??F) 02/11/2021 8:16 AM ED T Respiratory Rate 18 02/11/2021 8:16 AM EDT Oxygen Saturation 98% 02/11/2021 8:16 AM EDT Inhaled Oxygen Concentration - - Weight 72.2 kg (159 lb 3.2 oz) 02/11/2021 8:16 A M EDT Height 160 cm (5' 2.99) 02/11/2021 8:16 AM EDT Body Mass Index 28.21 02/11/2021 8:16 AM EDT documented in this encounter Progress Notes * Madison Corrales, RN - 02/11/2021 8:00 AM EDT INFUSION THERAPY ADMINISTRATION NOTES DIAGNOSIS: ITP Week #4 REASON FOR VISIT: Rituxan infusion SUBJECTIVE Shanita Noel Francisco offers no complaints. OBJECTIVE LAB DATA: PLTS 48 IV ACCESS: PIV left hand. Pre administration: Chemotherapy orders independently verified [...] PM EDT Office Visit Hematology/Oncology at [address] [phone] Carrie Bruno MD [facility] DR HEMATOLOGY/[place] [address] Oliva Mccabe, TELECOMMUNICATIONS LINE MECHANIC [facility] DR HEMATOLOGY/[place] [address] 09/11/2024 1:00 PM EST Office Visit Dermatology at [facility] [address] [place] [address] Lizeth Hallman MD [facility] [place] [address] documented as of this encounter Visit Diagnoses Diagnosis Thrombocytopenia Thrombocytopenia, unspecified documented in this encounter Administered Medications Inactive Administered Medications - up to 3 most recent administrations Medication Order MAR Action Action Date Dose Rate Site acetaminophen (Tylenol) tablet 650 mg 650 mg, Oral, ONCE, 1 dose, On Tue02/11/21 at 0830, To be given before riTUXimab infusion, Routine Given 02/11/2021 8:28 AM EDT 650 mg diphenhydrAMINE (Benadryl) (50 mg/mL) injection 25 mg 25 mg, Intravenous, ONCE, 1 dose, On Tue02/11/21 at 0830, To be given before riTUXimab infusion, Routine Given 02/11/2021 8:29 AM EDT 25 mg riTUXimab (Rituxan) 100 mg in sodium chloride 0.9% 50 mL infusion 100 mg, Intravenous, ONCE, 1 dose, On Tue02/11/21 at 0830, Administer per protocol, RITUXAN is NON-PREFERRED brand. Please indicate why RITUXAN is specifically required (vs. preferred RUXIENCE brand): Patient? s insurance (payer) does not cover Ruxience New Bag 02/11/2021 9:00 AM EDT 100 mg documented in this encounter Care Teams Steam Frame Operator Relationship Specialty Start Date End Date Catracho Vernon MD [facility] [place] [phone] PCP - General Family Medicine 04/21/18 documented as of this encounter
--- OUTSIDE RECORDS SUMMARY | 2024-02-21 01:29 | XMS_ITS | Encounter Summary ---
Author Organization [facility] Address [facility] [place] [address] Care Team Providers Care Diving Instructor Name Role Phone Catracho Vernon MD Primary Care Provider [phone] Reason for Visit * Consultation (Routine) - Closed Specialty Diagnoses / Procedures Referred By Edson evans Referred To Contact General Surgery Diagnoses Thrombocytopenia Carrie Bruno MD [facility] HEMATOLOGY/[place] [address] Ramiro Shah MD [facility] [place] [address] Referral ID Status Reason Start Date Expiration Date V isits Requested Visits Authorized [id number] Closed Consult, Test & Treat 02/04/2021 02/04/2022 1 1 Encounter Details Date Type Department Care Team (Late st Contact Info) Description 03/03/2021 12:00 PM EDT Office [place] [phone] Ramiro Shah MD [facility] [place] [address] Thrombocytopenia Social History Tobacco Use Types Packs/Day Years Used Date Smoking Tobacco: Never Smokeless Tobacco: Never Sex and Gender Information Value Date Recorded Sex Assigned at Not on file Gender Identity Female 08/21/2020 5:05 PM EST Sexual Orientation Not on file documented as of this encounter Progress Notes * Ramiro Shah MD - 03/03/2021 12:00 PM EDT Shanita Francisco is a 75-year-old female who was referred by Dr. Carrie Bruno for consultation regarding possible laparoscopic splenectomy. She was originally noted to have thrombocytopenia back in 2017 and has since that time been treated successfully. She now has more recurrent thrombocytopenia that is becoming more difficult to manage. She discussed the various options for treatment with the heme-onc service and is interested in finding more information about splenectomy. Patient Active Problem List Diagnosis Code ??? Healthcare maintenance Z00.00 ??? Nevus D22.9 ??? Thrombocytopenia D69.6 ??? Spinal stenosis at L4-L5 level M48.061 No past medical history on file. No past surgical history on file. Current Outpatient Medications on File Prior to Visit Medication Sig Dispense Refill ??? Azelaic Acid (FINACEA) 15 % Gel After washing your face twice a day, apply a thin film of creamto affected areas of the face twice daily. (Patient not taking: Reported on 11/26/2020) 30 g 3 ??? dexamethasone (Decadron) 4 mg Tablet Dex 40mg daily X 4 days and repeat q 3 weeks (Patient not taking: Reported on 11/26/2020) 40 tablet 11 ??? TURMERIC ORAL Take 1 capsule by mouth daily. ??? ergocalciferol, vitamin D2, (VITAMIN D ORAL) Take 1,000 mg by mouth daily. ??? ubidecarenone (CO Q-10 ORAL) Take by mouth. No current facility-administered medications on file prior to visit. No Known Allergies No family history on file. Social History Socioeconomic History ??? Marital status: Spouse name: Not on file ??? Number of children: Not on file ??? Years of education: Not on file ??? Highest education level: Not on file Occupational History ??? Not on file Tobacco Use ??? Smoking status: Never Smoker ??? Smokeless tobacco: Never Used Vaping Use ??? Vaping Use: Never used Substance and Sexual Activity ??? Alcohol use: Not on file ??? Drug use: Not on file ??? Sexual activity: Not on file Other Topics Concern ??? Not on file Social History Narrative ??? Not on file Social Determinants of Health Financial Resource Strain: ??? Difficulty of Paying Living Expenses: Not on file Food Insecurity: ??? Worried About Running Out of Food in the Last Year: Not on file ??? Ran Out of Food in the Last Year: Not on file Transportation Needs: ??? Lack of Transportation (Medical): Not on file ??? Lack of Transportation (Non-Medical): Not on file Physical Activity: ??? Days of Exercise per Week: Not on file ??? Minutes of Exercise per Session: Not on file I had a long discussion with her and her regarding laparoscopic splenectomy including the small but significant risks of bleeding, pancreatic leak or pancreatic injury. ITP spleens tend to besmall and therefore pose less risk of major complications given the ease of access. We went over the procedure in detail and I answered a number of questions which she had. She is not prepared to make any decision yet and understands that splenectomy is not guaranteed to cure her of her ITP. I havegiven her lots of information to think about and should she decide to proceed with splenectomy I amhappy to see her again and proceed forward. Otherwise I will leave her follow-up on a as needed basis. documented in this encounter Plan of Treatment Upcoming Encounters Date Type Department Care Team (Late st Contact Info) Description 02/22/2024 1:00 PM EDT Office Visit Hematology/Oncology at [address] [phone] Carrie Bruno MD [facility] HEMATOLOGY/[place] [address] Oliva Mccabe APRN [facility] HEMATOLOGY/[place] [address] 09/11/2024 1:00 PM EST Office Visit Dermatology at [address] [place] [phone] Lizeth Hallman MD [facility] [place] [address] Scheduled Referrals Name Type Priority Associated Diagnoses Orde r Schedule Referral to General Surgery Outpatient Referral Routine Thrombocytopenia Ordered: 02/04/2021 documented as of this encounter Visit Diagnoses Diagnosis Thrombocytopenia Thrombocytopenia, unspecified documented in this encounter Care Teams Diving Instructor Relationship Specialty Start Date End Date Catracho Vernon MD [address] [place] [address] [place] [address] PCP - General Family Medicine 04/21/18 documented as of this encounter
--- OUTSIDE RECORDS SUMMARY | 2024-02-21 01:29 | XMS_ITS | Encounter Summary ---
Author Organization [facility] [place] [address] Care Team Providers Care Jet Inspector Name Role Phone Cartacho Vernon MD Primary Care Provider [phone] Reason for Visit * Reason Onset Date Comments Labs Only 12/11/2020 lab tracking Encounter Details Date Type Department Care Team (Late st Contact Info) Description 12/11/2020 Telephone Hematology/Oncology at [address] [phone] Jackie Salinas RN Labs Only (lab tracking) Social History Tobacco Use Types Packs/Day Years Used Date Smoking Tobacco: Never Smokeless Tobacco: Never Sex and Gender Information Value Date Recorded Sex Assigned at Not on file Gender Identity Female 08/21/2020 5:05 PM EST Sexual Orientation Not on file documented as of this encounter Miscellaneous Notes * Telephone Encounter - Jackie Salinas RN - 12/11/2020 1:04 PM EDT LAB TRACKING Torrey Conteh : 1945 DIAGNOSIS: ITP LABS ORDERED: cbc diff Mondays. 11/03/20 - go to every other week lab draws. MEDICATIONS: 07/16/20-dexamethasone 40 IV day one then daily for 3 days 08/05/20-08/08/20 dexamethasone 40 mg po daily Assessment/Plan: Labs sent to Dr. Bruno to review. Dr. Bruno wants labs repeated Vasquez AM with IVIG to follow Tuesday and tuesday. Pt will get cbc diff and cmp. Pt agrees with plan. Results for TORREY CONTEH ( ) as of 12/11/2020 12:44 Ref. Range 11/03/2020 00:00 11/17/2020 00:00 11/24/2020 00:00 12/11/2020 00:00 WBC Unknown 4.3 4.98 5.02 4.94 RBC Unknown 4.43 Hemoglobin Unknown 13.6 14.1 14.1 14.5 Hematocrit Unknown 41.8 43.4 43.2 43.3 Platelets Unknown 90 82 90 44 Neutr Abs (ANC) Unknown 2.56 3 2.91 2.89 documented in this encounter Plan of Treatment Upcoming Encounters Date Type Department Care Team (Late st Contact Info) Description 02/22/2024 1:00 PM EDT Office Visit Hematology/Oncology at [address] [phone] Carrie Bruno MD [facility] DR HEMATOLOGY/[place] [address] Oliva Mccabe, DIRECTOR REGULATORY AFFAIRS [facility] DR HEMATOLOGY/[place] [address] 09/11/2024 1:00 PM EST Office Visit Dermatology at [place] [address] [place] [address] Lizeth Hallman MD [facility] [address] [place] [address] documented as of this encounter Procedures Procedure Name Priority Date/Time Associated Diagnosis Comments CBC (WITH DIFF) Routine 12/11/2020 documented in this encounter Results * CBC (with Diff) (12/11/2020) WBC 4.94 Hemoglobin 14.5 Hematocrit 43.3 Platelets 44 Neutr Abs (ANC) 2.89 Blood 12/11/2020 Historical Provider HEMATOLOGY ORDERA BLES documented in this encounter Visit Diagnoses Diagnosis Acute ITP Immune thrombocytopenic purpura Thrombocytopenia Thrombocytopenia, unspecified documented in this encounter Care Teams Jet Inspector Relationship Specialty Start Date End Date Catracho Vernon MD [address] [place] [phone] PCP - General Family Medicine 04/21/18 documented as of this encounter
--- OUTSIDE RECORDS SUMMARY | 2024-02-21 01:29 | XMS_ITS | Encounter Summary ---
Author Organization [facility] [place] [address] Care Team Providers Care Mail Carrier Name Role Phone Catracho Vernon MD Primary Care Provider [phone] Reason for Visit * Reason Onset Date Comments Labs Only 02/03/2021 lab tracking Encounter Details Date Type Department Care Team (Late st Contact Info) Description 02/03/2021 Telephone Hematology/Oncology at [address] [phone] Jackie Salinas RN Labs Only [...] Telephone Encounter - Jackie Salinas RN - 02/03/2021 8:56 AM EDT LAB TRACKING Torrey Conteh : 1945 DIAGNOSIS: ITP LABS ORDERED: cbc/diff Weekly at [facility], also needs CMP if getting IVIG MEDICATIONS: 07/16/20- dexamethasone 40 IV day one then daily for 3 days 08/05/20-08/08/20 dexamethasone 40 mg po daily IVIG- 12/15,12/16,01/08, 01/09 Rituxan to start 01/16 Assessment/Plan: Labs sent to Dr. Bruno and Manfred Bhatt LUMBER SALES SUPERVISOR. Pt getting third dose of rituxan today. ADD: Pt saw Dr. Bruno today 02/04. Pt will get labs again on February 09. If PLT fall below 30 K she will take oral dex or get IVIG Results for TORREY CONTEH ( ) as of 02/03/2021 08:55 Ref. Range 01/12/2021 00:00 01/15/2021 00:00 01/26/2021 00:00 02/03/2021 00:00 WBC Unknown 3.44 3.51 3.56 4.21 Hemoglobin Unknown 14.1 14.4 13.4 13.5 Hematocrit Unknown 42.3 43.5 41.3 40.9 Platelets Unknown 91 92 45 34 Neutr Abs (ANC) Unknown 1.92 1.94 1.53 2.29 documented in this encounter Plan of Treatment Upcoming Encounters Date Type Department Care Team (Late st Contact Info) Description 02/22/2024 1:00 PM EDT Office Visit Hematology/Oncology at [address] [phone] Carrie Bruno MD [facility] DR HEMATOLOGY/[place] [address] Oliva Mccabe APRN [facility] HEMATOLOGY/[place] [address] 09/11/2024 1:00 PM EST Office Visit Dermatology at [address] [place] [phone] Lizeth Hallman MD [facility] [place] [address] documented as of this encounter Procedures Procedure Name Priority Date/Time Associated Diagnosis Comments CBC (WITH DIFF) Routine 02/03/2021 documented in this encounter Results * CBC (with Diff) (02/03/2021) WBC 4.21 Hemoglobin 13.5 Hematocrit 40.9 Platelets 34 Neutr Abs (ANC) 2.29 Blood 02/03/2021 Historical Provider HEMATOLOGY ORDERA BLES documented in this encounter Visit Diagnoses Not on filedocumented in this encounter Care Teams Mail Carrier Relationship Specialty Start Date End Date Catracho Vernon MD [address] [place] [address] PCP - General Family Medicine 04/21/18 documented as of this encounter
--- OUTSIDE RECORDS SUMMARY | 2024-02-21 01:29 | XMS_ITS | Encounter Summary ---
Author Organization [facility] [place] [address] Care Team Providers Care Flight Instructor Name Role Phone Catracho Vernon MD Primary Care Provider [phone] Reason for Visit * Reason Onset Date Comments Labs Only 12/23/2020 Lab Tracking Encounter Details Date Type Department Care Team (Late st Contact Info) Description 12/23/2020 Telephone Hematology/Oncology at [address] [phone] Bird Kohli, RN Labs Only [...] Telephone Encounter - Bird Kohli RN - 12/23/2020 12:03 PM EDT LAB TRACKING Torrey Conteh : 1945 DIAGNOSIS: ITP LABS ORDERED: cbc diff every 2 weeks [facility] MEDICATIONS: 07/16/20- dexamethasone 40 IV day one then daily for 3 days 08/05/20-08/08/20 dexamethasone 40 mg po daily Assessment/Plan: Labs sent to Dr. Bruno to review. Will continue lab checks every 2 weeks. No dex or IVIG unless PLTs fall lower. Pt aware and in agreement with plan. Labs again 01/06 at [facility]. Results for TORREY CONTEH ( ) as of 12/23/2020 12:36 Ref. Range 12/11/2020 00:00 12/15/2020 00:00 12/16/2020 00:00 12/17/2020 00:00 12/23/2020 00:00 WBC Unknown 4.94 4.55 4.78 4.65 4.12 Hemoglobin Unknown 14.5 13.6 13.8 13.6 14.8 Hematocrit Unknown 43.3 41.9 41.4 40.6 45.1 MCV Unknown 89.2 89.8 Platelets Unknown 44 33 59 85 81 Neutr Abs (ANC) Unknown 2.89 2.55 3.1 2.87 2.29 BUN Unknown 24 Creatinine Unknown 0.9 documented in this encounter Plan of Treatment Upcoming Encounters Date Type Department Care Team (Late st Contact Info) Description 02/22/2024 1:00 PM EDT Office Visit Hematology/Oncology at [address] [phone] Carrie Bruno MD [facility] DR HEMATOLOGY/[place] [address] Oliva Mccabe APRN [facility] HEMATOLOGY/[place] [address] 09/11/2024 1:00 PM EST Office Visit Dermatology at [facility] [address] [place] [phone] Lizeth Hallman MD [facility] DR [address] [place] [address] documented as of this encounter Procedures Procedure Name Priority Date/Time Associated Diagnosis Comments CBC (WITH DIFF) Routine 12/23/2020 documented in this encounter Results * CBC (with Diff) (12/23/2020) WBC 4.12 Hemoglobin 14.8 Hematocrit 45.1 MCV 89.8 Platelets 81 Neutr Abs (ANC) 2.29 Blood Carrie Bruno MD HEMATOLOGY ORDER JAMIE documented in this encounter Visit Diagnoses Not on filedocumented in this encounter Care Teams Flight Instructor Relationship Specialty Start Date End Date Catracho Vernon MD [address] [place] [phone] PCP - General Family Medicine 04/21/18 documented as of this encounter
--- OUTSIDE RECORDS SUMMARY | 2024-02-21 01:29 | XMS_ITS | Encounter Summary ---
Author Organization [facility] [place] [address] Care Team Providers Care Director Of Food And Nutrition Name Role Phone Catracho Vernon MD Primary Care Provider [phone] Reason for Visit * Reason Onset Date Comments Labs Only 01/15/2021 lab tracking Encounter Details Date Type Department Care Team (Late st Contact Info) Description 01/15/2021 Telephone Hematology/Oncology at [address] [phone] Jackie Salinas RN Labs Only [...] Telephone Encounter - Jackie Salinas RN - 01/15/2021 10:32 AM EDT LAB TRACKING Torrey Conteh : 1945 DIAGNOSIS: ITP LABS ORDERED: cbc/diff Weekly at [facility], also needs CMP if getting IVIG MEDICATIONS: 07/16/20- dexamethasone 40 IV day one then daily for 3 days 08/05/20-08/08/20 dexamethasone 40 mg po daily IVIG- 12/15,12/16,01/08, 01/09 Rituxan to start 01/16 Assessment/Plan: Labs sent to Dr. Bruno and Manfred Bhatt,ABDULLAHI Got IVIG 01/08 and 01/09. Then will start weekly Rituxan x4 on 01/16, then 01/26, then 02/03, and 02/11 (not perfectly weekly as she is going OOT for a week on 01/17). Next labs after that 01/26 as she will be out of town. Then Tuesday ongoing. Results for TORREY CONTEH ( ) as of 01/15/2021 10:32 Ref. Range 12/17/2020 00:00 12/23/2020 00:00 01/06/2021 00:00 01/12/2021 00:00 01/15/2021 00:00 WBC Unknown 4.65 4.12 4.12 3.44 3.51 Hemoglobin Unknown 13.6 14.8 13.7 14.1 14.4 Hematocrit Unknown 40.6 45.1 41.3 42.3 43.5 MCV Unknown 89.2 89.8 88.6 Platelets Unknown 85 81 28 (UF) 91 92 Neutr Abs (ANC) Unknown 2.87 2.29 2.26 1.92 1.94 BUN Unknown 24 Creatinine Unknown 1.0 documented in this encounter Plan of Treatment Upcoming Encounters Date Type Department Care Team (Late st Contact Info) Description 02/22/2024 1:00 PM EDT Office Visit Hematology/Oncology at [address] [phone] Carrie Bruno MD [facility] DR HEMATOLOGY/[place] [address] Oliva Mccabe APRN [facility] HEMATOLOGY/[place] [address] 09/11/2024 1:00 PM EST Office Visit Dermatology at [facility] [address] [place] [address] Lizeth Hallman MD [facility] DR [address]TA WHE[place] [address] documented as of this encounter Procedures Procedure Name Priority Date/Time Associated Diagnosis Comments CBC (WITH DIFF) Routine 01/15/2021 documented in this encounter Results * CBC (with Diff) (01/15/2021) WBC 3.51 Hemoglobin 14.4 Hematocrit 43.5 Platelets 92 Neutr Abs (ANC) 1.94 Blood 01/15/2021 Historical Provider HEMATOLOGY ORDERA BLES documented in this encounter Visit Diagnoses Not on filedocumented in this encounter Care Teams Director Of Food And Nutrition Relationship Specialty Start Date End Date Catracho Vernon MD [facility] [place] [address] [place] [address] PCP - General Family Medicine 04/21/18 documented as of this encounter
--- OUTSIDE RECORDS SUMMARY | 2024-02-21 01:29 | XMS_ITS | Encounter Summary ---
Author Organization [facility] [place] [address] Care Team Providers Care Willower Name Role Phone Catracho Vernon MD Primary Care Provider [phone] Reason for Visit * Reason Onset Date Comments Labs Only 02/18/2021 Lab Tracking Encounter Details Date Type Department Care Team (Late st Contact Info) Description 02/18/2021 Telephone Hematology/Oncology at [address] [phone] Bird Kohli, RN Labs Only [...] Telephone Encounter - Bird Kohli, RN - 02/18/2021 12:41 PM EDT LAB TRACKING Torrey Conteh : 1945 DIAGNOSIS: ITP LABS ORDERED: cbc/diff Weekly at [facility], also needs CMP if getting IVIG MEDICATIONS: 07/16/20- dexamethasone 40 IV day one then daily for 3 days 08/05/20-08/08/20 dexamethasone 40 mg po daily IVIG- 12/15,12/16,01/08, 01/09 Rituxan to start 01/16- 4 doses given Assessment/Plan: Labs sent to provider for review. Pt has had 4 doses Rituxan. Pt is going to [facility] next week. Per Dr Bruno take 4 days of Dexamethasone 40 mg daily. She then will have FUV 03/03.She will present to local ED with any sxs of bleeding. She is in agreement with plan and will startDex pulse tomorrow morning. Results for TORREY CONTEH ( ) as of 02/18/2021 12:42 Ref. Range 01/26/2021 00:00 02/03/2021 00:00 02/10/2021 00:00 02/18/2021 00:00 WBC Unknown 3.56 4.21 4.90 4.33 Hemoglobin Unknown 13.4 13.5 13.2 13.6 Hematocrit Unknown 41.3 40.9 40.5 40.9 MCV Unknown 89.8 89.9 Platelets Unknown 45 34 48 32 Neutr Abs (ANC) Unknown 1.53 2.29 3.04 2.63 Creatinine Unknown 0.9 documented in this encounter Plan of Treatment Upcoming Encounters Date Type Department Care Team (Late st Contact Info) Description 02/22/2024 1:00 PM EDT Office Visit Hematology/Oncology at [address] [phone] Carrie Bruno MD [facility] DR HEMATOLOGY/[place] [address] Oliva Mccabe, DISTRIBUTED GENERATION PROJECT MANAGER [facility] HEMATOLOGY/[place] [address] 09/11/2024 1:00 PM EST Office Visit Dermatology at [facility] [address] [place] [phone] Lizeth Hallman MD [facility] [place] [address] documented as of this encounter Procedures Procedure Name Priority Date/Time Associated Diagnosis Comments CBC (WITH DIFF) Routine 02/18/2021 documented in this encounter Results * CBC (with Diff) (02/18/2021) WBC 4.33 Hemoglobin 13.6 Hematocrit 40.9 MCV 89.9 Platelets 32 Neutr Abs (ANC) 2.63 Blood Historical Provider HEMATOLOGY ORDERA BLES documented in this encounter Visit Diagnoses Not on filedocumented in this encounter Care Teams Willower Relationship Specialty Start Date End Date Catracho Vernon MD [address] [place] [address] PCP - General Family Medicine 04/21/18 documented as of this encounter
--- OUTSIDE RECORDS SUMMARY | 2024-02-21 01:29 | XMS_ITS | Encounter Summary ---
Author Organization [facility] [place] [address] Care Team Providers Care Collar Setter Name Role Phone Catracho Vernon MD Primary Care Provider [phone] Reason for Visit * Reason Comments Follow-up Encounter Details Date Type Department Care Team ([facility] st Contact Info) Description 03/03/2021 11:30 AM EDT Office Visit Hematology [place] [address] Carrie Heredia MD [facility] DR HEMATOLOGY/[place] [address] Carrie Hawk APRN [facility] DR HEMATOLOGY/[place] [address] Thrombocytopenia Social History Tobacco Use Types Packs/Day Years Used Date Smoking Tobacco: Never Smokeless Tobacco: Never Sex and Gender Information Value Date Recorded Sex Assigned at Not on file Gender Identity Female 08/21/2020 5:05 PM EST Sexual Orientation Not on file documented as of this encounter Last Filed Vital Signs Vital Sign Reading Time Taken Comments Blood Pressure 157/86 03/03/2021 11:46 AM EDT Pulse 72 03/03/2021 11:46 AM EDT Temperature 36.3 ??C (97.3 ??F) 03/03/2021 11:46 AM E DT Respiratory Rate 16 03/03/2021 11:46 AM EDT Oxygen Saturation 97% 03/03/2021 11:46 AM EDT Inhaled Oxygen Concentration - - Weight 71.7 kg (158 lb 1.6 oz) 03/03/2021 11:46 AM EDT Height 160 cm (5' 2.99) 03/03/2021 11:46 AM EDT Body Mass Index 28.01 03/03/2021 11:46 AM EDT documented in this encounter Progress Notes * Carrie Heredia MD - 03/03/2021 11:30 AM EDT OUTPATIENT HEMATOLOGY/ ONCOLOGY CONSULTATION HISTORY [...] were dropping prior to her departure for [facility], so she took dexamethasone 40 mg x 4 days starting 02/19/2021. Dose for of rituximab 100 mg given on 03/14/2021. The patient returns today after vacation on [facility] with her family. Labs and CT of chest abdomen and pelvis (to rule out underlying lymphoma) were done today. She also has a surgical consultation with Dr. Shah following this appointment, as she wanted to learn more about the laparoscopic splenectomy. She has not yet received splenectomy vaccines. She is now fully COVID vaccinated. Covid spike antibody positive, tested 03/03/2021 at [facility]. 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 50th wedding anniversary in 2019! Rare ALFONSO Has children who work in [employer] - her daughter and son-in-law work for [employer] in [facility]. 2 boys. 3 children total and 4 grandchildren total. Retired [employer]. FAMILY HISTORY: Mother: CAD, renal Father: dementia Sibs: 3 sisters Afib; CAD, DM Children: healthy No autoimmune disorders MEDICATIONS AND ALLERGIES- reviewed at this visit Medications 03/03/21 1149 Medication Sig Taking? ergocalciferol, vitamin D2, (VITAMIN D ORAL) Take 1,000 mg by mouth daily. Yes ubidecarenone (CO Q-10 ORAL) Take by mouth. Yes Azelaic Acid (FINACEA) 15 % Gel [...] ORAL Take 1 capsule by mouth daily. PAST MEDICAL HISTORY- reviewed Patient Active Problem List Diagnosis Code ??? Healthcare maintenance Z00.00 ??? Nevus D22.9 ??? Thrombocytopenia D69.6 ??? Spinal stenosis at L4-L5 level M48.061 COMPREHENSIVE REVIEW OF SYSTEMS Besides what is mentioned in the HPI, all other systems are negative PHYSICAL EXAM BP 157/86 (Patient Position: Sitting) Pulse 72 Temp 36.3 ??C (97.3 ??F) (Temporal) Resp 16 Ht 160 cm (5' 2.99) Wt 71.7 kg (158 lb 1.6 oz) SpO2 97% BMI 28.01 kg/m?? Body surface area is 1.79 meters squared. GENERAL: Shanita Francisco appears well and is in no acute distress. Examination deferred today LABORATORY EVALUATION Recent Results (from the past 24 hour(s)) COVID-19 Rob Antibody Result Value Ref Range SARS-CoV-2 Rob Ab Detected Lactate Dehydrogenase Result Value Ref Range LDH 177 110 - 220 unit/L Comprehensive metabolic panel (non-fasting) Result Value Ref Range Glucose Lvl 100 65 - 199 mg/dL BUN 17 8 - 18 mg/dL Creatinine 0.86 0.70 - 1.20 mg/dL Sodium 142 135 - 145 mmol/L Potassium 3.6 3.5 - 5.0 mmol/L Chloride 106 98 - 107 mmol/L CO2 26 22 - 31 mmol/L Anion Gap 10 5 - 15 mmol/L Calcium 9.9 8.5 - 10.5 mg/dL Total Protein 6.7 6.1 - 8.0 gm/dL Albumin 4.0 3.2 - 5.2 gm/dL AST 15 0 - 30 unit/L ALT 25 0 - 30 unit/L Alk Phos 85 35 - 105 unit/L Total Bilirubin 0.2 0.2 - 1.3 mg/dL Estimated GFR 65 >=60 mL/min/1.73 m?? Hemogram Result Value Ref Range WBC 8.0 4.0 - 9.5 x10(3)/mcL RBC 4.75 4.00 - 5.21 x10(6)/mcL Hemoglobin 14.0 11.7 - 15.5 gm/dL Hematocrit 42.9 35.7 - 45.8 % MCV 90.3 82.6 - 94.4 fL MCH 29.5 27.1 - 32.0 pg MCHC 32.6 31.7 - 35.0 gm/dL Platelets 131 (L) 145 - 357 x10(3)/mcL RDWSD 43.4 37.0 - 46.0 fL RDWCV 13.2 11.5 - 14.1 % MPV 11.5 7.6 - 12.9 fL nRBC % Auto 0.0 % nRBC Abs Auto 0.000 0.000 - 0.000 x10(3)/mcL Differential, Automated Result Value Ref Range Neutrophils % 62.1 % Neutr Abs (ANC) 4.99 1 - 6 x10(3)/mcL Lymphocytes % 23.8 % Lymphocytes Abs 1.9 0.9 - 3.2 x10(3)/mcL Monocytes % 12.0 % Monocyte Abs 1.0 (H) 0.3 - 0.9 x10(3)/mcL Eosinophils % 0.9 % Eosinophils Abs 0.1 0.0 - 0.4 x10(3)/mcL Basophils % 0.6 % Basophils Abs 0.0 0.0 - 0.1 x10(3)/mcL Immature Gran % 0.60 % Mackenzie Gran Abs 0.05 (H) 0.00 - 0.04 x10(3)/mcL 07/28/20 Hep B and Hep C negative RADIOGRAPHIC EVALUATION 03/03/21 EXAMINATION: CT CHEST ABDOMEN PELVIS W CONTRAST (GENERIC) ?? CLINICAL HISTORY: Lymphadenopathy, chest or axilla pt with ITP and need to rule out underlying lymphoma and assess spleen size before splenectomy ? TECHNIQUE: Helical CT of the chest, abdomen, and pelvis was performed following the intravenous administration of contrast. Administered 82.0 ml of OMNIPAQUE 350.00 mg/ml. Oral contrast was administered. ?? COMPARISON: None ?? FINDINGS: ?? Chest: Mediastinum: There are coronary artery calcifications. No pericardial effusion. Normal heart size. No aortic aneurysm. Descending aorta is tortuous. No enlarged mediastinal or hilar lymph nodes. ?? Lungs: Airways are patent. Small calcified granuloma within the right middle lobe. No suspicious pulmonary nodule. No consolidation. ?? Pleura: Normal ?? Bones and soft tissues: No enlarged axillary lymph nodes. Partially imaged osteoarthropathy of bilateral glenohumeral joints, left greater than right. There is diffuse lucency and sclerosis throughout all of the bones, including the ribs and the spine. There is multilevel degenerative change. Intact vertebral body heights. ?? Abdomen/pelvis: Liver: Tiny cyst within the right lobe the liver. Normal size of the liver and enhancement. ?? Biliary system: Multiple calcified gallstones throughout the gallbladder. The gallbladder wall is diffusely thickened. There is no adjacent fat stranding fluid. No intrahepatic biliary dilation. Common bile duct measures up to 11 mm with smooth tapering at the ampulla. ?? Pancreas: Normal enhancement. No mass. No ductal dilation. ?? Spleen: 9.7 cm. Normal size and enhancement. ?? Adrenal glands: normal ?? Kidneys: normal ?? Bowel: Stomach is not dilated. No bowel obstruction or bowel wall thickening. ?? Mesentery, omentum, and peritoneum: No pneumoperitoneum or fluid. ?? Pelvic organs: normal ?? Lymph nodes: not enlarged ?? Vasculature: Mild calcification. No abdominal aortic aneurysm. ?? Retroperitoneum: no mass or hemorrhage ?? Bones and soft tissues: Intact vertebral body heights. Diffuse lucency and sclerosis throughout the bones including the spine and pelvis and bilateral hips. Severe disc height loss at L5-S1. Multilevel facet degeneration. Grade 1 anterolisthesis of L4 on L5. ?? IMPRESSION ?? Diffuse sclerosis and lucency throughout the bones, concerning for a myeloproliferative disorder. Consider correlation with bone scan and bone marrow biopsy. ?? Normal spleen size. ?? No enlarged lymph nodes. ?? Dilated common bile duct of unknown etiology. Correlate with LFTs. ?? Multiple gallstones with gallbladder wall thickening. Correlate [...] The cyclosporine combinations are more challenging in [facility] as wecannot get levels easily. Shanita tolerates the Dex poorly w/ SFX. 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 She reviewed her understanding, which was quite accurate. To date she has not had a response to rituximab, but it is probably too early to l d rn. She has been getting 100 mg per [...] age she is reluctant to get surgery. She has an appt with Dr Shah to follow this appt to learn more about splenectomy. The patient returns today after vacation on [employer] with her family. Platelets were dropping priorto her departure for [employer], so she took dexamethasone 40 mg x 4 days starting 02/19/2021. Labs and CT of chest abdomen and pelvis (to rule out underlying lymphoma) were done today and is listed above.. She also has a surgical consultation with Dr. Shah following this appointment, as she wanted to learn more about the laparoscopic splenectomy. She has not yet received splenectomy vaccines. We discussed the sclerotic findings on her CAT scan. I explained that radiology is calling these findings more and more frequently. We often have to do a bone marrow biopsy to prove that the bone marrow is normal. She has a totally normal white count and hemoglobin, so my suspicion for an underlying marrow process is low, but given the findings it is definitely worth pursuing a sedated bone fox ow biopsy. We discussed the sedated bone marrow biopsy at the [facility] and she is willing to proceed. I would want to know that her bone marrow is normal before proceeding either with splenectomy and/or eltrombopag. She agrees. I will also check multiple myeloma labs today including SPEP, quantitative immunoglobulin, and serum free light chains. ?? Ref: Journal of Hematology 2013 Florentino-Jacque. [...] completed mid Sep 2020. + spike ab today. Great news. Bone density - PCP is ordering DEXA scan. Gallstones -findings were incidental on CT scan to rule out lymphoma. See above. Patient is asymptomatic. No intervention necessary at this time. Patient aware. Plan: ?? IVIG 1 g/kg/day x 2 days OR dex 40mg X 4 days for plt less than 30k and fu appt. ?? Cbc q 2 weeks with RN tracking ?? MM labs today given her skeletal findings on CT today ?? Hep B and hep C negative in July 2021. She no longer has adequate hep B antibodies, she willdiscuss the role of a booster vaccination with her PCP. ?? See PCP for HTN f/u ?? See PCP regarding DEXA scan ?? Follow-up with PCP regarding diarrhea ?? Refer to Dr Shah for consultation regarding lap splenectomy later today ?? Sedated bone marrow biopsy next available ?? Return to clinic with EMB at [facility] 1 week following the bone marrow biopsy I discussed all of the above with the patient and all of her questions were answered. Support and counseling given as appropriate. Shanita Francisco knows that she can call us any time with questions orconcerns. This note was written or modified using Vhoto voice recognition software. The final note was screened for mistakes. Please excuse any remaining errors. CARRIE HEREDIA MD documented in this encounter Plan of Treatment Upcoming Encounters Date Type Department Care Team (Late st Contact Info) Description 02/22/2024 1:00 PM EDT Office Visit Hematology/Oncology at [address] [phone] Carrie Heredia MD [facility] DR HEMATOLOGY/[place] [address] Oliva Mccabe APRN [facility] DR HEMATOLOGY/[place] [address] 09/11/2024 1:00 PM EST Office Visit Dermatology at [place] [address] [place] [address] Lizeth Hallman MD [facility] DR DONTA [place] [address] documented as of this encounter Results * Free Light Chains, Serum (03/03/2021 12:37 PM EDT) Thayne Free Light Chain 0.83 0.72 - 2.75 mg/dL [facility] Lambda Free Light Chain 0.93 0.57 - 2.15 mg/dL [facility] Thayne Lambda FLC Ratio 0.8925 0.4000 - 2.5800 [facility] Blood 03/03/2021 12:3 7 PM EDT 03/03/2021 12:50 PM EDT Narrative Resulting Agency Comment Spec In Lab Carrie Heredia MD CHEMISTRY ORDERA BLES Performing Organization Address [facility] Co de Phone Number [facility] [place] [address] * Immunoglobulins, Quantitative (03/03/2021 12:37 PM EDT) IgG 885 700 - 1,600 mg/dL [facility] Comment: Pediatric Reference Intervals obtained from the Caliper Reference Interval project. http://www.[employer].ca/caliperproject/index.html IgA 128 70 - 400 mg/dL [facility] IgM 91 40 - 230 mg/dL [facility] Blood 03/03/2021 12:3 7 PM EDT 03/03/2021 12:50 PM EDT Narrative Resulting Agency Comment Spec In Lab Carrie Heredia MD CHEMISTRY ORDERA BLES Performing Organization Address [facility] Co de Phone Number [facility] [place] [address] * Protein Electrophoresis, serum (03/03/2021 12:37 PM EDT) Total Prot Elec 6.7 6.1 - 8.0 gm/dL [facility] Albumin Elect 4.27 3.60 - 6.00 gm/dL [facility] Alpha1-Globul in 0.19 0.10 - 0.30 gm/dL [facility] Alpha2-Globul in 0.80 0.40 - 0.90 gm/dL [facility] Beta Globulin 0.76 0.50 - 1.00 gm/dL [facility] Gamma Globulin 0.68 0.50 - 1.30 gm/dL [facility] M1 Band None Detected None Detected [facility] Blood 03/03/2021 12:3 7 PM EDT 03/03/2021 12:50 PM EDT Narrative Resulting Agency Comment Spec In Lab Carrie Heredia MD CHEMISTRY ORDERA BLES [facility] [place] [address] documented in this encounter Visit Diagnoses Diagnosis Thrombocytopenia Thrombocytopenia, unspecified documented in this encounter Care Teams Collar Setter Relationship Specialty Start Date End Date Catracho Vernon MD [address] [place] [phone] PCP - General Family Medicine 04/21/18 documented as of this encounter
--- OUTSIDE RECORDS SUMMARY | 2024-02-21 01:29 | XMS_ITS | Encounter Summary ---
Author Organization [facility] Address [facility] [place] [address] Care Team Providers Care Report Programmer Name Role Phone Catracho Vernon MD Primary Care Provider [phone] Encounter Details Date Type Department Care Team (Late st Contact Info) Description 11/26/2020 9:00 AM EDT Office Visit Hematology/Oncology at [address] [address] Carrie Heredia MD [facility] DR HEMATOLOGY/[place] [address] Stacey Bhatt APRN [facility] DR HEMATOLOGY/[place] [address] Diarrhea, unspecified type Social History Tobacco Use Types Packs/Day Years Used Date Smoking Tobacco: Never Smokeless Tobacco: Never Sex and Gender Information Value Date Recorded Sex Assigned at Not on file Gender Identity Female 08/21/2020 5:05 PM EST Sexual Orientation Not on file documented as of this encounter Last Filed Vital Signs Vital Sign Reading Time Taken Comments Blood Pressure 156/78 11/26/2020 8:58 AM EDT Pulse 62 11/26/2020 8:58 AM EDT Temperature 36.1 ??C (96.9 ??F) 11/26/2020 8:58 AM ED T Respiratory Rate 16 11/26/2020 8:58 AM EDT Oxygen Saturation 100% 11/26/2020 8:58 AM EDT Inhaled Oxygen Concentration - - Weight 72.1 kg (159 lb) 11/26/2020 8:58 AM EDT Height 160 cm (5' 2.99) 11/26/2020 8:58 AM EDT Body Mass Index 28.17 11/26/2020 8:58 AM EDT documented in this encounter Progress Notes * Carrie Heredia MD - 11/26/2020 9:00 AM EDT OUTPATIENT HEMATOLOGY/ ONCOLOGY CONSULTATION HISTORY [...] 1 with response ?? Relapse Jul 2020 INTERIM HISTORY Shanita returns in follow-up for her thrombocytopenia. She completed Dex 40 x 4 days in Apr 2018. Relapse Jul 2020 Dex 40 X 4 days 07/16- 07/12/19 with good response. Here for ongoing f/u. I had planned LD rituxan 100mg but given upcoming COVID vaccine, we held off on both further steroids as well as rituximab. With this watch and wait approach, her platelets havestabilized in the 80-100 K range. No bleeding or bruising. She is now fully COVID vaccinated. 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 Darryl HAMILOTN Has children who work in [employer] - her daughter and son-in-law work for [employer] in [facility]. 2 boys. 3 children total and 4 grandchildren total. Retired [employer]. FAMILY HISTORY: Mother: CAD, renal Father: dementia Sibs: 3 sisters Afib; CAD, DM Children: healthy No autoimmune disorders MEDICATIONS AND ALLERGIES- reviewed at this visit Medications 11/26/20 0902 Medication Sig Taking? TURMERIC ORAL Take 1 capsule by mouth [...] weeks Patient not taking: Reported on 11/26/2020 PAST MEDICAL HISTORY- reviewed Patient Active Problem List Diagnosis Code ??? Healthcare maintenance Z00.00 ??? Nevus D22.9 ??? Thrombocytopenia D69.6 ??? Spinal stenosis at L4-L5 level M48.061 COMPREHENSIVE REVIEW OF SYSTEMS Besides what is mentioned in the HPI, all other systems are negative PHYSICAL EXAM BP 156/78 (Patient Position: Sitting) Pulse 62 Temp 36.1 ??C (96.9 ??F) (Temporal) Resp 16 Ht 160 cm (5' 2.99) Wt 72.1 kg (159 lb) SpO2 100% BMI 28.17 kg/m?? Body surface area is 1.79 meters [...] 120,000. This seems to be her baseline. Relapse July 2020. Dexamethasone 40 mg x 4 days given 07/16-07/19/2020 with good response. The patient returns today for ongoing discussion and treatment of her ITP. She has now had both Covid vaccinations. We have been following her prospectively at her request which is very reasonable. To date her plt are holding. We have discussed both IVIG and rituxan and respective SFX of either a couple times in the past. Her last 4-day course of dexamethasone was in August 2020 If plt fall we can rescue her w/ IVIG. But that is temporizing. After that we need to consider Dex again with another agent added in such as rituximab. (See reference below) hopefully, with the addition of rituximab we would then be able to wean her off of the dexamethasone. If we are unable to get her off the steroids, then other options include splenectomy, eltrombopag, dapsone, Nplate, and cyclosporine combinations. The cyclosporine combinations are more challenging in [facility] as we cannot get levels easily. Shanita reports that for a week after each Dex she feels like I am in a different world unstable onher feet, and lightheaded. Dizzy. ?? Ref: Journal of Hematology 2013 Florentino-Jacque. We elected a watchful waiting approach, at Ms. Francisco' suggestion. She has done well with this. 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 I think we can extend her interval to every other week, and if it remains stable we can extend it further. Diarrhea - started w/ dex and never stopped. Started in Sep. 2020. 3 BM every AM - increased flatus, Will check stool for giardia and CDiff although no recent ATB use. Plan: ?? In person visit in 3 months or sooner in person if platelets decrease ?? CBC every other mondays with RN tracking. She is out of town 12/17-12/31. She will get cbc on 12/11 and 01/01 with RN tracking. ?? IVIG 1 g/kg/day x 2 days for plt less than 30k and fu appt. ?? Rituxan 100mg weekly X 4 on hold for the current time until we discuss at next appointment in 3 weeks ?? Hep B and hep C negative in July 2021. She no longer has adequate hep B antibodies, she willdiscuss the role of a booster vaccination with her PCP. ?? See PCP for HTN f/u ?? COVID vaccine X 2 completed mid Sep ?? Will check stool for giardia and CDiff and if that is negative, then she will see her PCP. I discussed all of the above with the patient and all of her questions were answered. Support and counseling given as appropriate. Shanita Francisco knows that she can call us any time with questions orconcerns. This note was written or modified using [employer] voice recognition software. The final note was screened for mistakes. Please excuse any remaining errors. CARRIE HEREDIA MD documented in this encounter Plan of Treatment Upcoming Encounters Date Type Department Care Team (Late st Contact Info) Description 02/22/2024 1:00 PM EDT Office Visit Hematology/Oncology at [address] [phone] Crarie Heredia MD [facility] DR HEMATOLOGY/[place] [address] Oliva Mccabe, CONTENT STRATEGY LEAD [facility] DR HEMATOLOGY/[place] [address] 09/11/2024 1:00 PM EST Office Visit Dermatology at [address] [phone] Lizeth Hallman MD [facility] DR [place] [address] documented as of this encounter Visit Diagnoses Diagnosis Diarrhea, unspecified type documented in this encounter Care Teams Report Programmer Relationship Specialty Start Date End Date Catracho Vernon MD [address] [place] [address] PCP - General Family Medicine 04/21/18 documented as of this encounter
--- OUTSIDE RECORDS SUMMARY | 2024-02-21 01:29 | XMS_ITS | Encounter Summary ---
Author Organization [facility] [place] [address] Care Team Providers Care Brush Clearer Surveying Name Role Phone Catracho Vernon MD Primary Care Provider [phone] Encounter Details Date Type Department Care Team (Late Contact Info) Description 12/12/2020 Orders Only Hematology [place] [address] [facility] HEMATOLOGY/[place] [address] Social History Tobacco Use Types Packs/Day Years [...] 1:00 PM EDT Office Visit Hematology/Oncology at [address] [phone] [facility] HEMATOLOGY/[place] [address] Oliva Mccabe, PROGRAMMER ANALYST [facility] HEMATOLOGY/[place] [address] 09/11/2024 1:00 PM EST Office Visit Dermatology at [facility] [address] [place] [phone] Lizeth Hallman MD [facility] DR DONTA [place] [address] documented as of this encounter Visit Diagnoses Not on filedocumented in this encounter Care Teams Brush Clearer Surveying Relationship Specialty Start Date End Date Catracho Vernon MD [address] [place] [address] [place] [address] PCP - General Family Medicine 04/21/18 documented as of this encounter
--- OUTSIDE RECORDS SUMMARY | 2024-02-21 01:29 | XMS_ITS | Encounter Summary ---
Author Organization Formerly [facility], Later [facility] Address [facility] [place] [address] Care Team Providers Care Magician Helper Name Role Phone Catracho Vernon MD Primary Care Provider [phone] Reason for Visit * Reason Comments IV Medication IVIG * Treatment/Therapy Plan Authorization (Routine) - Pending Review Specialty Diagnoses / Procedures Referred By Edson evans Referred To Contact Diagnoses Thrombocytopenia Carrie Bruno MD [facility] HEMATOLOGY/[place] [address] Referral ID Status Reason Start Date Expiration Date V isits Requested Visits Authorized [id number] Pending Review 09/17/2020 09/17/2021 99 99 Encounter Details Date Type Department Care Team (Late Contact Info) Description 12/16/2020 8:00 AM EDT Infusion Hematology Oncology at [address] [phone] Thrombocytopenia Social History Tobacco Use Types Packs/Day Years Used Date Smoking Tobacco: Never Smokeless Tobacco: Never Sex and Gender Information Value Date Recorded Sex Assigned at Not on file Gender Identity Female 08/21/2020 5:05 PM EST Sexual Orientation Not on file documented as of this encounter Last Filed Vital Signs Vital Sign Reading Time Taken Comments Blood Pressure 159/71 12/16/2020 1:56 PM EDT Pulse 64 12/16/2020 1:56 PM EDT Temperature 36.3 ??C (97.3 ??F) 12/16/2020 8:12 AM ED T Respiratory Rate 16 12/16/2020 8:12 AM EDT Oxygen Saturation 100% 12/16/2020 1:56 PM EDT Inhaled Oxygen Concentration - - Weight 73.2 kg (161 lb 6.4 oz) 12/16/2020 8:12 A M EDT Height 160 cm (5' 3) 12/16/2020 8:12 AM EDT Body Mass Index 28.59 12/16/2020 8:12 AM EDT documented in this encounter Progress Notes * Jackie Burk RN - 12/16/2020 8:00 AM EDT * Madison Corrales RN - 12/16/2020 8:00 AM EDT INFUSION THERAPY ADMINISTRATION NOTES DIAGNOSIS: ITP REASON FOR VISIT: Second time IVIG infusion SUBJECTIVE Shanita Noel Francisco states she has had a headache since 2am. She has not taken anything for it. Tylenol administered in clinic and headache eased before starting IVIG. OBJECTIVE LAB DATA: PLTs 59k today, up from 33k on 12/15. IV ACCESS: PIV in right forearm from infusion yesterday, flushes easily. REACTIONS (DESCRIPTION, TIME, INTERVENTION AND EFFECTIVENESS) none ASSESSMENT Shanita Noel Francisco was awake, alert and tolerated treatment well. IVIG was given at second time rate with rate capped at 1.98ml/kg/hr per IVIG calculator (due to agegreater than 65). PLAN Return to clinic as scheduled. documented in this encounter Plan of Treatment Upcoming Encounters Date Type Department Care Team (Late st Contact Info) Description 02/22/2024 1:00 PM EDT Office Visit Hematology/Oncology at [address] [phone] Carrie Bruno MD [facility] HEMATOLOGY/[place] [address] Oliva Mccabe APRN [facility] DR HEMATOLOGY/[place] [address] 09/11/2024 1:00 PM EST Office Visit Dermatology at [facility] [address] [place] [phone] Lizeth Hallman MD [facility] [place] [address] documented as of this encounter Procedures Procedure Name Priority Date/Time Associated Diagnosis Comments LAB SCAN 01/06/2021 12:00 AM EDT documented in this encounter Results * SCAN DOC: LAB (01/06/2021 12:00 AM EDT) Narrative 01/06/2021 12:00 AM EDT Ordered by an unspecified provider. Scanning Provider MEDIA MGR SCAN EXT O RDR/RSLT documented in this encounter Visit Diagnoses Diagnosis Thrombocytopenia Thrombocytopenia, unspecified documented in this encounter Administered Medications Inactive Administered Medications - up to 3 most recent administrations Medication Order MAR Action Action Date Dose Rate Site acetaminophen (Tylenol) tablet 650 mg 650 mg, Oral, ONCE, 1 dose, On Tue12/16/20 at 0830, Routine Given 12/16/2020 8:25 AM EDT 650 mg diphenhydrAMINE (Benadryl) capsule 25 mg 25 mg, Oral, ONCE, 1 dose, On Tue12/16/20 at 0830, Routine Given 12/16/2020 8:25 AM EDT 25 mg immune globulin (PRIVIGEN) (100 mg/mL) 10 g/100 mL infusion 10 g 10 g, Intravenous, ONCE, 1 dose, On Tue12/16/20 at 0845, Total Dose: 50g [Dispense: 40g [...] in the ordered dose field in the [facility]. Increase the rate every 30 minutes as [...] require approval by P&T Chair or On-Call Skip Load Driver. *Idiopathic thrombocytopenic purpura *, What is the maximum rate of administration? 0.04 mL/kg/min (for idiopathic thrombocytopenia or any patient with renal insufficiency or any patient greater than or equal to 65 years old) New Bag 12/16/2020 8:48 AM EDT 10 g immune globulin (PRIVIGEN) (100 mg/mL) 40 g/400 mL infusion 40 g 40 g, Intravenous, ONCE, 1 dose, On Tue12/16/20 at 0845, Total Dose: 50g [Dispense: 40g [...] in the ordered dose field in the [facility]. Increase the rate every 30 minutes as [...] require approval by P&T Chair or On-Call Skip Load Driver. *Idiopathic thrombocytopenic purpura *, What is the maximum rate of administration? 0.04 mL/kg/min (for idiopathic thrombocytopenia or any patient with renal insufficiency or any patient greater than or equal to 65 years old) New Bag 12/16/2020 9:53 AM EDT 40 g documented in this encounter Care Teams Magician Helper Relationship Specialty Start Date End Date Catracho Vernon MD [address] [place] [address] PCP - General Family Medicine 04/21/18 documented as of this encounter
--- OUTSIDE RECORDS SUMMARY | 2024-02-21 01:29 | XMS_ITS | Encounter Summary ---
Author Organization [facility] [place] [address] Care Team Providers Care Stringer Up Soldering Machine Name Role Phone Catracho Vernon MD Primary Care Provider [phone] Encounter Details Date Type Department Care Team (Late Contact Info) Description 01/14/2021 Orders Only Hematology/Oncology at [address] [phone] Stacey Bhatt, [facility] HEMATOLOGY/[place] [address] Social History Tobacco Use Types Packs/Day Years [...] PM EDT Office Visit Hematology/Oncology at [address] [phone] Carrie Bruno MD [facility] HEMATOLOGY/[place] [address] Oliva Mccabe, ESTATE PLANNING COUNSELOR [facility] HEMATOLOGY/[place] [address] 09/11/2024 1:00 PM EST Office Visit Dermatology at [facility] [address] [place] [phone] Lizeth Hallman MD [facility] [address] [address] documented as of this encounter Visit Diagnoses Not on filedocumented in this encounter Care Teams Stringer Up Soldering Machine Relationship Specialty Start Date End Date Catracho Vernon MD [address] [place] [address] [place] [address] PCP - General Family Medicine 04/21/18 documented as of this encounter
--- OUTSIDE RECORDS SUMMARY | 2024-02-21 01:29 | XMS_ITS | Encounter Summary ---
Author Organization [facility] [place] [address] Care Team Providers Care Assistant Product Manager Name Role Phone Catracho Vernon MD Primary Care Provider [phone] Reason for Visit * Reason Onset Date Comments Labs Only 03/17/2021 Lab Tracking Encounter Details Date Type Department Care Team (Late st Contact Info) Description 03/17/2021 Telephone Hematology/Oncology at [address] [phone] Bird Kohli, RN Labs Only [...] Telephone Encounter - Bird Kohli, RN - 03/17/2021 1:38 PM EDT LAB TRACKING Torrey Conteh : 1945 DIAGNOSIS: ITP LABS ORDERED: cbc/diff every other week at [facility], also needs CMP if getting IVIG [...] for TORREY CONTEH ( ) as of 03/17/2021 13:49 Ref. Range 02/18/2021 00:00 03/03/2021 07:27 03/17/2021 00:00 WBC Unknown 4.33 8.0 5.63 RBC Latest Ref Range: 4.00 - 5.21 x10(6)/mcL 4.75 Hemoglobin Unknown 13.6 14.0 13.7 Hematocrit Unknown 40.9 42.9 42.3 MCV Unknown 89.9 90.3 90.4 MCH Latest Ref Range: 27.1 - 32.0 pg 29.5 MCHC Latest Ref Range: 31.7 - 35.0 gm/dL 32.6 RDWSD Latest Ref Range: 37.0 - 46.0 fL 43.4 RDWCV Latest Ref Range: 11.5 - 14.1 % 13.2 Platelets Unknown 32 131 (L) 143 MPV Latest Ref Range: 7.6 - 12.9 fL 11.5 nRBC % Auto Latest Units: % 0.0 nRBC Abs Auto Latest Ref Range: 0.000 - 0.000 x10(3)/mcL 0.000 Neutr Abs (ANC) Unknown 2.63 4.99 3.64 Neutrophils % Latest Units: % 62.1 Immature Gran % Latest Units: % 0.60 Lymphocytes % Latest Units: % 23.8 Monocytes % Latest Units: % 12.0 Eosinophils % Latest Units: % 0.9 Basophils % Latest Units: % 0.6 Mackenzie Gran Abs Latest Ref Range: 0.00 - 0.04 x10(3)/mcL 0.05 (H) Lymphocytes Abs Latest Ref Range: 0.9 - 3.2 x10(3)/mcL 1.9 Monocyte Abs Latest Ref Range: 0.3 - 0.9 x10(3)/mcL 1.0 (H) Eosinophils Abs Latest Ref Range: 0.0 - 0.4 x10(3)/mcL 0.1 Basophils Abs Latest Ref Range: 0.0 - 0.1 x10(3)/mcL 0.0 Sodium Latest Ref Range: 135 - 145 mmol/L 142 Potassium Latest Ref Range: 3.5 - 5.0 mmol/L 3.6 Chloride Latest Ref Range: 98 - 107 mmol/L 106 CO2 Latest Ref Range: 22 - 31 mmol/L 26 Anion Gap Latest Ref Range: 5 - 15 mmol/L 10 BUN Latest Ref Range: 8 - 18 mg/dL 17 Creatinine Latest Ref Range: 0.70 - 1.20 mg/dL 0.86 Estimated GFR Latest Ref Range: >=60 mL/min/1.73 m?? 65 Calcium Latest Ref Range: 8.5 - 10.5 mg/dL 9.9 Glucose Lvl Latest Ref Range: 65 - 199 mg/dL 100 Total Protein Latest Ref Range: 6.1 - 8.0 gm/dL 6.7 Albumin Latest Ref Range: 3.2 - 5.2 gm/dL 4.0 Total Bilirubin Latest Ref Range: 0.2 - 1.3 mg/dL 0.2 Alk Phos Latest Ref Range: 35 - 105 unit/L 85 AST Latest Ref Range: 0 - 30 unit/L 15 ALT Latest Ref Range: 0 - 30 unit/L 25 LDH Latest Ref Range: 110 - 220 unit/L 177 Total Prot Elec Latest Ref Range: 6.1 - 8.0 gm/dL Albumin Elect Latest Ref Range: 3.60 - 6.00 gm/dL Alpha1-Globulin Latest Ref Range: 0.10 - 0.30 gm/dL Alpha2-Globulin Latest Ref Range: 0.40 - 0.90 gm/dL Beta Globulin Latest Ref Range: 0.50 - 1.00 gm/dL Gamma Globulin Latest Ref Range: 0.50 - 1.30 gm/dL M1 Band Latest Ref Range: None Detected [place] Free Light Chain Latest Ref Range: 0.72 - 2.75 mg/dL Lambda Free Light Chain Latest Ref Range: 0.57 - 2.15 mg/dL [place] Lambda FLC Ratio Latest Ref Range: 0.4000 - 2.5800 IgG Latest Ref Range: 700 - 1,600 mg/dL IgA Latest Ref Range: 70 - 400 mg/dL IgM Latest Ref Range: 40 - 230 mg/dL SARS-CoV-2 Rob Ab Unknown Detected documented in this encounter Plan of Treatment Upcoming Encounters Date Type Department Care Team (Late st Contact Info) Description 02/22/2024 1:00 PM EDT Office Visit Hematology/Oncology at [address] [phone] Carrie Bruno MD [facility] DR HEMATOLOGY/[place] [address] Oliva Mccabe APRN [facility] HEMATOLOGY/[place] [address] 09/11/2024 1:00 PM EST Office Visit Dermatology at [facility] [address] [place] [address] Lizeth Hallman MD [facility] [address] [place] [address] documented as of this encounter Procedures Procedure Name Priority Date/Time Associated Diagnosis Comments CBC (WITH DIFF) Routine 03/17/2021 documented in this encounter Results * CBC (with Diff) (03/17/2021) WBC 5.63 Hemoglobin 13.7 Hematocrit 42.3 MCV 90.4 Platelets 143 Neutr Abs (ANC) 3.64 Blood Historical Provider HEMATOLOGY ORDERA BLES documented in this encounter Visit Diagnoses Not on filedocumented in this encounter Care Teams Assistant Product Manager Relationship Specialty Start Date End Date Catracho Vernon MD [address] [place] [address] PCP - General Family Medicine 04/21/18 documented as of this encounter
--- OUTSIDE RECORDS SUMMARY | 2024-02-21 01:29 | XMS_ITS | Encounter Summary ---
Author Organization [facility] [place] [address] Care Team Providers Care Twisting Frame Changer Name Role Phone Catracho Vernon MD Primary Care Provider [phone] Reason for Visit * Reason Onset Date Comments Labs Only 01/26/2021 lab tracking Encounter Details Date Type Department Care Team (Late st Contact Info) Description 01/26/2021 Telephone Hematology/Oncology at [address] [phone] Jackie Salinas RN Labs Only [...] Telephone Encounter - Jackie Salinas RN - 01/26/2021 8:20 AM EDT LAB TRACKING Torrey Conteh : 1945 DIAGNOSIS: ITP LABS ORDERED: cbc/diff Weekly at [facility], also needs CMP if getting IVIG MEDICATIONS: 07/16/20- dexamethasone 40 IV day one then daily for 3 days 08/05/20-08/08/20 dexamethasone 40 mg po daily IVIG- 12/15,12/16,01/08, 01/09 Rituxan to start 01/16 Assessment/Plan: Labs sent to Dr. Bruno and Manfred Bhatt,ABDULLAHI Got IVIG 01/08 and 01/09. She will get her next dose of rituxan 100 mg today. Labs in a week. Results for TORREY CONTEH ( ) as of 01/26/2021 08:21 Ref. Range 01/06/2021 00:00 01/12/2021 00:00 01/15/2021 00:00 01/26/2021 00:00 WBC Unknown 4.12 3.44 3.51 3.56 Hemoglobin Unknown 13.7 14.1 14.4 13.4 Hematocrit Unknown 41.3 42.3 43.5 41.3 MCV Unknown 88.6 Platelets Unknown 28 (UF) 91 92 45 Neutr Abs (ANC) Unknown 2.26 1.92 1.94 1.53 BUN Unknown 24 Creatinine Unknown 1.0 0.9 documented in this encounter Plan of Treatment Upcoming Encounters Date Type Department Care Team (Late st Contact Info) Description 02/22/2024 1:00 PM EDT Office Visit Hematology/Oncology at [address] [phone] Carrie Bruno MD [facility] DR HEMATOLOGY/[place] [address] Oliva Mccabe APRN [facility] HEMATOLOGY/[place] [address] 09/11/2024 1:00 PM EST Office Visit Dermatology at [place] [address] [place] [phone] Lizeth Hallman MD [facility] [address] [place] [address] documented as of this encounter Procedures Procedure Name Priority Date/Time Associated Diagnosis Comments CBC (WITH DIFF) Routine 01/26/2021 documented in this encounter Results * CBC (with Diff) (01/26/2021) WBC 3.56 Hemoglobin 13.4 Hematocrit 41.3 Platelets 45 Neutr Abs (ANC) 1.53 Creatinine 0.9 Blood 01/26/2021 Historical Provider HEMATOLOGY ORDERA BLES documented in this encounter Visit Diagnoses Not on filedocumented in this encounter Care Teams Twisting Frame Changer Relationship Specialty Start Date End Date Catracho Vernon MD [address] [place] [address] PCP - General Family Medicine 04/21/18 documented as of this encounter
--- OUTSIDE RECORDS SUMMARY | 2024-02-21 01:29 | XMS_ITS | Encounter Summary ---
Author Organization [facility] Address [facility] [place] [address] Care Team Providers Care Scrap Bunch Maker Name Role Phone Catracho Vernon MD Primary Care Provider [phone] Reason for Visit * Reason Comments Skin Cancer Examination Encounter Details Date Type Department Care Team ([facility] st Contact Info) Description 11/13/2020 10:20 AM EDT Office Visit Dermatology at [address] [phone] [facility] [address] DONTA [place] [address] SK (seborrheic keratosis); AK (actinic keratosis); Rosacea; Lentigines Social History Tobacco Use Types Packs/Day Years Used Date Smoking Tobacco: Never Smokeless Tobacco: Never Sex and Gender Information Value Date Recorded Sex Assigned at Not on file Gender Identity Female 08/21/2020 5:05 PM EST Sexual Orientation Not on file documented as of this encounter Patient Instructions * Patient Instructions* Robina Valdivia, WEB CONTENT & SOCIAL MEDIA MANAGER - 11/13/2020 10:20 AM EDT Images from the original note were not included. Efudex Treatment Actinic keratoses (AKs) are precancerous skin lesions that warrant treatment because of their potential to advance to skin cancer. They are also often cosmetically bothersome. Appropriate treatment reduces the risk of developing skin cancer in that area and often restores a healthier appearance to the skin. There are several options for treating actinic keratoses. When they are few and/or thick we often use a liquid nitrogen spray technique (cryotherapy) to destroy the visibly affected skin. This is notalways practical when the AKs are numerous and diffuse. When they are numerous and/or diffuse field therapy is preferred. Field therapy treats the entire area and recognizes that where there are AKs there is a background of sun damaged skin that can generate more AKs. Field therapy can be done with certain in-office light therapies or at home with a chemotherapy cream. Chemotherapy creams (like 5-Fluorouracil aka Efudex) have been used for decades to accomplish fieldtherapy. Efudex Directions: ??? Apply a pea sized amount topically twice daily (morning and/or night) to your full face for 3 weeks, then discontinue. ??? Using Efudex ?? Wash hands well immediately before and after applying Efudex ?? Before you apply this medication to the skin, clean the affected area. Use gentle cleanser such as Cetaphil, Dove white bar, CeraVe, Sebamed or Vanicream to the areas recommended before application. Rinse and pat dry. ?? Then apply a small amount of Efudex medication topically to the affected areas, using just enough to cover the area with a thin film. If applying to the face, be careful to avoid the eyes and mouth. Make sure you wash your hands after application. ?? Avoid sun exposure! If planning to go outside, wear a wide brimmed hat and broad spectrum sunscreen SPF 30 or higher. Yes, even in the car! ?? Apply sunscreen or gentle lotion (such as CeraVe or VaniCream) 1 hour after Efudex application ?? For discomfort you may use cold compresses and/or take Tylenol. ?? Plain vaseline can be applied to any raw or red areas. You may consider applying Vaseline to corners of eyes, eyelids, lips and corners of mouth. This will protect these more sensitive areas from excessive reaction to the therapy ?? Avoid over the counter antibiotic ointments like neosporin or bacitracin - these are often irritating to the skin and both contain common skin allergens. What to Expect ?? Skin irritation, burning, redness, dryness, pain, swelling, tenderness or changing of skin colormay occur at the site of application. (see below images) ?? Skin will not heal until AFTER treatment period is complete and may take several weeks to heal completely. ?? Redness may remain in the areas where the reaction was most intense. This is where the skin was most sun damaged. Expect slow, steady clearing of this redness. Wear your sunscreen and avoid sun exposure and we would expect any future treatments to be much easier to endure. You may expect your skin to become red or irritated during this treatment. This is a normal reaction. Day 6 Day 16 Day 18 Contact your Doctor If: You have pain not relieved by Tylenol, cold compresses, and vaseline. Or if you have a fever or anyunusual symptoms like headaches, nausea or malaise. These side effects are reported rarely with longer courses of Efudex (5 FU cream). Follow up with your doctor as planned and be sure to seek followup for any persistently red, raw or sensitive areas that fail to heal 2-3 months after the treatment. *DO NOT SHARE THIS MEDICATION *Do not stop this medication unless instructed to by a physician. *During this treatment, please avoid using any other topical products unless instructed to do so byyour physician. *Return for a follow up as discussed with your physician. ??? For questions and concerns please call your nurse at: [phone]. documented in this encounter Progress Notes * Anita Churchill MD - 11/13/2020 10:20 AM EDT Images from the original note were not included. DERMATOLOGY - ESTABLISHED PATIENT FOLLOW-UP Date of service: 11/13/2020 Shanita Francisco : 1945, 75 y.o. Chief Complaint: Chief Complaint Patient presents with ??? Skin Cancer Examination HPI: Shanita Francisco is a 75 y.o. female last seen by Dr. Rene on 07/02/2019. Ms. Francisco returns today for full skin cancer examination. Specific concerns today include red donnell cheeks with occasional pustules, which she describes as similar to rosacea. She believes the rash was precipitated by treatment with dexamethasone in August for thrombocytopenia. Reports she was diagnosed with rosacea in the past. States today is a good day. Relevant Skin History: - Skin cancer (including type): none - Congenital nevi - History of thrombocytopenia, currently borderline per patient - History of blistering sunburns in youth. Family History: Melanoma: sister Mother: unknown skin cancer Father had rosacea and eczema, daughter had psoriasis? 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 magnesium oxide 400 mg magnesium Tablet Take by mouth. ??? dexamethasone (Decadron) 4 mg Tablet Dex 40mg daily X 4 days and repeat q 3 weeks 40 tablet 11 ??? TURMERIC ORAL Take 1 capsule by mouth daily. ??? ergocalciferol, vitamin D2, (VITAMIN D ORAL) Take 1,000 mg by mouth daily. ??? ubidecarenone (CO Q-10 ORAL) Take by mouth. No current facility-administered medications for this visit. Allergies: No Known Allergies Review of Systems: - General: Feels well - Skin: No other skin concerns. Examination: - Constitutional: Patient was alert, well-appearing and in no noticeable distress. - Full Skin Exam: Skin examination of the scalp, face, ears, neck, back, chest, axillae, abdomen, right and left upper extremities, right and left lower extremities, hands, feet, and buttocks was normal with the exception of the findings listed below. Genitalia not examined, patient elected to keepunderwear on. - A nurse/MA was present and on standby during my examination. Diagnosis/Skin findings/Assessment/Plan: # Seborrheic Keratoses - hands, trunk and extremities , waxy stuck on papule noted. - Explained that these are hereditary and adult-acquired. Reassured patient of benign nature. No treatment necessary. - Advised patient to call if they become inflamed or irritated. 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 Patient instructed that insurance may not cover medication and to call our office for alternativeif it is too expensive - Discussed gentle skin care and avoidance of harsh skin care products. Recommended Cetaphil non soap cleanser, or VaniCream cleanser. # Solar lentigines - 0.3-0.6cm light-brown evenly pigmented, well-demarcated macules in a photo distributed pattern on the face, trunk and extremities. - Reviewed importance of sun protection (hats/shade/clothing) and sunscreen recommendations (SPF30,UVA/UVB broad spectrum coverage, reapply every 2 hrs if still outside). - Discussed warning signs of skin cancer, ABCDEs of melanoma. - Recommend daily face lotion spf 15-30 (Cerave AM, Aveeno, Cotz) # Actinic Keratoses with Actinic Field Damage on the face - Explained etiology, natural history, and premalignant potential of these lesions. - Discussed treatment options (LN2, 5-FU, PDT) and their respective risks and benefits. - Reviewed expectations, typical reaction, and restrictions on light exposure during treatment. Patient understands that affected area will likely become red, irritated and tender during treatment and that this is a normal reaction. - Patient elects to defer treatment at this time RTC: 1 year for FBSE, sooner if needed. Routed for scheduling. Note initiated by Robina Valdivia CMA. I, Robina Valdivia CMA, have performed the documentation for this encounter in the presence of and acting as a scribe for Anita Churchill MD. I performed the services which were documented by the scribe, and I agree with the accuracy of the documentation in this encounter. Anita Churchill MD Reviewed and signed by: Anita Churchill MD Resident in Dermatology [facility] Patient seen and evaluated with staff miter operator: Amelia Delacruz MD Department of Dermatology [facility] * Amelia Delacruz MD - 11/13/2020 10:20 AM EDT I directly supervised Dr. Churchill during this office visit. Dr. Churchill presented the history and physical exam to me. I, then, saw and examined this patient with Dr. Churchill . We reviewed the history and pertinent details and I confirmed the physical findings. I agree with the details of the history andphysical exam as documented in Dr. Churchill's note. AMELIA DELACRUZ MD Staff Physician documented in this encounter Plan of Treatment Upcoming Encounters Date Type Department Care Team (Late st Contact Info) Description 02/22/2024 1:00 PM EDT Office Visit Hematology/Oncology at [address] [phone] [facility] HEMATOLOGY/[place] [address] Oliva Mccabe, ABDULLAHI [facility] DR HEMATOLOGY/[place] [address] 09/11/2024 1:00 PM EST Office Visit Dermatology at [facility] [address] [place] [address] [facility] DR DONTA [place] [address] documented as of this encounter Visit Diagnoses Diagnosis SK (seborrheic keratosis) Other seborrheic keratosis AK (actinic keratosis) Actinic keratosis Rosacea Lentigines Other dyschromia documented in this encounter Care Teams Scrap Bunch Maker Relationship Specialty Start Date End Date Catracho Vernon MD [address] [place], [place] [address] [phone] PCP - General Family Medicine 04/21/18 documented as of this encounter
--- OUTSIDE RECORDS SUMMARY | 2024-02-21 01:29 | XMS_ITS | Encounter Summary ---
Author Organization [facility] Address [facility] [place] [address] Care Team Providers Care Still Operator Helper Name Role Phone Catracho Vernon MD Primary Care Provider [phone] Reason for Visit * Reason Comments IV Medication First IVIG infusion * Treatment/Therapy Plan Authorization (Routine) - Pending Review Specialty Diagnoses / Procedures Referred By Edson t Referred To Contact Diagnoses Thrombocytopenia Carrie Bruno MD [facility] HEMATOLOGY/[place] [address] Referral ID Status Reason Start Date Expiration Date V isits Requested Visits Authorized [id number] Pending Review 09/17/2020 09/17/2021 99 99 Encounter Details Date Type Department Care Team (Late st Contact Info) Description 12/15/2020 9:00 AM EDT Infusion Hematology Oncology at [address] [phone] Thrombocytopenia Social History Tobacco Use Types Packs/Day Years Used Date Smoking Tobacco: Never Smokeless Tobacco: Never Sex and Gender Information Value Date Recorded Sex Assigned at Not on file Gender Identity Female 08/21/2020 5:05 PM EST Sexual Orientation Not on file documented as of this encounter Last Filed Vital Signs Vital Sign Reading Time Taken Comments Blood Pressure 138/79 12/15/2020 2:46 PM EDT Pulse 62 12/15/2020 2:46 PM EDT Temperature 36.9 ??C (98.4 ??F) 12/15/2020 2:46 PM ED T Respiratory Rate 14 12/15/2020 2:46 PM EDT Oxygen Saturation 100% 12/15/2020 2:46 PM EDT Inhaled Oxygen Concentration - - Weight 73.6 kg (162 lb 3.2 oz) 12/15/2020 9:11 A M EDT Height 160 cm (5' 3) 12/15/2020 9:11 AM EDT Body Mass Index 28.73 12/15/2020 9:11 AM EDT documented in this encounter Progress Notes * Jackie Burk RN - 12/15/2020 9:00 AM EDT INFUSION THERAPY ADMINISTRATION NOTES DIAGNOSIS: ITP REASON FOR VISIT: First IVIG infusion SUBJECTIVE Shanita Noel Francisco states I am a little uneasy and nervous today I hope that this works. OBJECTIVE LAB DATA: PLTs 33k today, down from 44k on 12/11. Dr. Bruno aware, pt to have repeat CBC done prior to second IVIG infusion tomorrow (12/16) IV ACCESS: PIV placed in right forearm, + blood return and flush. Pt would like to keep in for tomorrow's infusion. REACTIONS (DESCRIPTION, TIME, INTERVENTION AND EFFECTIVENESS) none ASSESSMENT Shanita Noel Francisco was awake, alert and tolerated treatment well. IV left in, +flush and blood return for tx tomorrow. IVIG was given at first time rate with rate capped at 1.98ml/kg/hr per IVIG calculator (due to age greater than 65). PLAN Return to clinic tomorrow for second infusion to be given at subsequent rate. documented in this encounter Plan of Treatment Upcoming Encounters Date Type Department Care Team (Late st Contact Info) Description 02/22/2024 1:00 PM EDT Office Visit Hematology/Oncology at [address] [phone] Carrie Bruno MD [facility] HEMATOLOGY/ONCOLOGY DEPT. [place], [place] [id number] Oliva Mccabe APRN [facility] HEMATOLOGY/[place] [address] 09/11/2024 1:00 PM EST Office Visit Dermatology at [facility] [address] [place] [address] Lizeth Hallman MD [facility] [place] [address] documented as of this encounter Visit Diagnoses Diagnosis Thrombocytopenia Thrombocytopenia, unspecified documented in this encounter Administered Medications Inactive Administered Medications - up to 3 most recent administrations Medication Order [facility] Action Action Date Dose Rate Site acetaminophen (Tylenol) tablet 650 mg 650 mg, Oral, ONCE, 1 dose, On Tue12/15/20 at 0930, Routine Given 12/15/2020 9:33 AM EDT 650 mg diphenhydrAMINE (Benadryl) capsule 25 mg 25 mg, Oral, ONCE, 1 dose, On Tue12/15/20 at 0930, Routine Given 12/15/2020 9:33 AM EDT 25 mg immune globulin (PRIVIGEN) (100 mg/mL) 10 g/100 mL infusion 10 g 10 g, Intravenous, ONCE, 1 dose, On Tue12/15/20 at 0945, Total Dose: 50g [Dispense: 40g + 10g [...] require approval by P&T Chair or On-Call Arboriculture Instructor. *Idiopathic thrombocytopenic purpura *, What is the maximum rate of administration? 0.04 mL/kg/min (for idiopathic thrombocytopenia or any patient with renal insufficiency or any patient greater than or equal to 65 years old) New Bag 12/15/2020 9:39 AM EDT 10 g immune globulin (PRIVIGEN) (100 mg/mL) 40 g/400 mL infusion 40 g 40 g, Intravenous, ONCE, 1 dose, On 12/15/20 at 0945, Total Dose: 50g [Dispense: 40g + 10g [...] Varicella or MMR). Notify provider., Routine, As January 2021 IVIG supply has stabilized; the below listed indications are approved for use via P&T. All other indications require approval by P&T Chair or On-Call Arboriculture Instructor. *Idiopathic thrombocytopenic purpura *, What is the maximum rate of administration? 0.04 mL/kg/min (for idiopathic thrombocytopenia or any patient with renal insufficiency or any patient greater than or equal to 65 years old) New Bag 12/15/2020 11:37 AM EDT 40 g documented in this encounter Care Teams Still Operator Helper Relationship Specialty Start Date End Date Catracho Vernon MD [facility] [place] [phone] PCP - General Family Medicine 04/21/18 documented as of this encounter
--- OUTSIDE RECORDS SUMMARY | 2024-02-21 01:29 | XMS_ITS | Encounter Summary ---
Author Organization [facility] [place] [address] Care Team Providers Care Rf Engineer Name Role Phone Catracho Vernon MD Primary Care Provider [phone] Reason for Visit * Reason Onset Date Comments Labs Only 03/31/2021 Lab tracking Encounter Details Date Type Department Care Team (Late st Contact Info) Description 03/31/2021 Telephone Hematology Oncology at [address] [phone] Madison Corrales, RN Labs Only (Lab tracking) Social History Tobacco Use Types Packs/Day Years Used Date Smoking Tobacco: Never Smokeless Tobacco: Never Sex and Gender Information Value Date Recorded Sex Assigned at Not on file Gender Identity Female 08/21/2020 5:05 PM EST Sexual Orientation Not on file documented as of this encounter Miscellaneous Notes * Telephone Encounter - Madison Corrales RN - 03/31/2021 9:26 AM EDT LAB TRACKING Torrey Conteh : 1945 DIAGNOSIS: ITP LABS ORDERED: cbc/diff every other week at [facility], also needs CMP if getting IVIG MEDICATIONS: [...] she in in agreement with plan. Labs at [facility] yesterday. Sent to Dr. Bruno and ABDULLAHI for review. Labs again in 2 weeks CBC only. Results for TORREY CONTEH ( ) as of 03/31/2021 09:30 03/17/2021 00:00 03/30/2021 00:00 WBC 5.63 6.19 Hemoglobin 13.7 15.3 Hematocrit 42.3 45.8 MCV 90.4 Platelets [address] % 1.6 Neutr Abs (ANC) 3.64 4.56 BUN 17 Creatinine 0.82 LDH 207 documented in this encounter Plan of Treatment Upcoming Encounters Date Type Department Care Team (Late st Contact Info) Description 02/22/2024 1:00 PM EDT Office Visit Hematology/Oncology at [address] [phone] Carrie Bruno MD [facility] DR HEMATOLOGY/[place] [address] Oliva Mccabe APRN [facility] HEMATOLOGY/[place] [address] 09/11/2024 1:00 PM EST Office Visit Dermatology at [facility] [address] [place] [phone] Lizeth Hallman MD [facility] DR DON[place] [address] documented as of this encounter Procedures Procedure Name Priority Date/Time Associated Diagnosis Comments RETICULOCYTE COUNT Routine 03/30/2021 CBC (WITH DIFF) Routine 03/30/2021 LACTATE DEHYDROGENASE Routine 03/30/2021 COMPREHENSIVE METABOLIC PANEL (NON-FASTING) Routine 03/30/2021 documented in this encounter Results * Reticulocyte Count (03/30/2021) Retic Ct % 1.6 Blood 03/30/2021 Carrie Bruno MD HEMATOLOGY ORDER JAMIE * Lactate Dehydrogenase (03/30/2021) LDH 207 Blood 03/30/2021 Carrie Bruno MD CHEMISTRY ORDERA BLES * Comprehensive metabolic panel (non-fasting) (03/30/2021) BUN 17 Creatinine 0.82 Blood 03/30/2021 Carrie Bruno MD CHEMISTRY ORDERA BLES * CBC (with Diff) (03/30/2021) WBC 6.19 Hemoglobin 15.3 Hematocrit 45.8 Platelets 133 Neutr Abs (ANC) 4.56 Blood 03/30/2021 Carrie Bruno MD HEMATOLOGY ORDER JAMIE documented in this encounter Visit Diagnoses Not on filedocumented in this encounter Care Teams Rf Engineer Relationship Specialty Start Date End Date Catracho Vernon MD [address] [place] [phone] PCP - General Family Medicine 04/21/18 documented as of this encounter
--- OUTSIDE RECORDS SUMMARY | 2024-02-21 01:29 | XMS_ITS | Encounter Summary ---
Author Organization [facility] [place] [address] Care Team Providers Care Navy Diver Name Role Phone Catracho Vernon MD Primary Care Provider [phone] Reason for Visit * Reason Onset Date Comments Labs Only 02/10/2021 Lab Tracking Encounter Details Date Type Department Care Team (Late st Contact Info) Description 02/10/2021 Telephone Hematology/Oncology at [address] [phone] Bird Kohli, RN Labs Only [...] Telephone Encounter - Bird Kohli, RN - 02/10/2021 11:44 AM EDT LAB TRACKING Torrey Conteh : 1945 DIAGNOSIS: ITP LABS ORDERED: cbc/diff Weekly at [facility], also needs CMP if getting IVIG MEDICATIONS: 07/16/20- dexamethasone 40 IV day one then daily for 3 days 08/05/20-08/08/20 dexamethasone 40 mg po daily IVIG- 12/15,12/16,01/08, 01/09 Rituxan to start 01/16 Assessment/Plan: Labs sent to providers for review. Pt has had 3 of 4 doses Rituxan- she get last dose tomorrow. If PLT fall below 30 K she will take oral dex or get IVIG. Results for TORREY CONTEH ( ) as of 02/10/2021 11:48 Ref. Range 01/12/2021 00:00 01/15/2021 00:00 01/26/2021 00:00 02/03/2021 00:00 02/10/2021 00:00 WBC Unknown 3.44 3.51 3.56 4.21 4.90 Hemoglobin Unknown 14.1 14.4 13.4 13.5 13.2 Hematocrit Unknown 42.3 43.5 41.3 40.9 40.5 MCV Unknown 89.8 Platelets Unknown 91 92 45 34 48 Neutr Abs (ANC) Unknown 1.92 1.94 1.53 2.29 3.04 BUN Unknown 24 Creatinine Unknown 1.0 0.9 documented in this encounter Plan of Treatment Upcoming Encounters Date Type Department Care Team (Late st Contact Info) Description 02/22/2024 1:00 PM EDT Office Visit Hematology/Oncology at [address] [phone] Carrie Bruno MD [facility] DR HEMATOLOGY/[place] [address] Oliva Mccabe APRN [facility] DR HEMATOLOGY/[place] [address] 09/11/2024 1:00 PM EST Office Visit Dermatology at [facility] [address] [place] [phone] Lizeth Hallman MD [facility] [place] [address] documented as of this encounter Procedures Procedure Name Priority Date/Time Associated Diagnosis Comments CBC (WITH DIFF) Routine 02/10/2021 documented in this encounter Results * CBC (with Diff) (02/10/2021) WBC 4.90 Hemoglobin 13.2 Hematocrit 40.5 MCV 89.8 Platelets 48 Neutr Abs (ANC) 3.04 Blood Historical Provider HEMATOLOGY ORDERA BLES documented in this encounter Visit Diagnoses Not on filedocumented in this encounter Care Teams Navy Diver Relationship Specialty Start Date End Date Catracho Vernon MD [address] [place] [address] PCP - General Family Medicine 04/21/18 documented as of this encounter
--- OUTSIDE RECORDS SUMMARY | 2024-02-21 01:29 | XMS_ITS | Encounter Summary ---
Author Organization [facility] [place] [address] Care Team Providers Care Artist Woodblock Name Role Phone Catracho Vernon MD Primary Care Provider [phone] Reason for Visit * Reason Onset Date Comments Labs Only 11/17/2020 lab tracking Encounter Details Date Type Department Care Team (Late st Contact Info) Description 11/17/2020 Telephone Hematology/Oncology at [address] [phone] Jackie Salinas RN Labs Only (lab tracking) Social History Tobacco Use Types Packs/Day Years Used Date Smoking Tobacco: Never Smokeless Tobacco: Never Sex and Gender Information Value Date Recorded Sex Assigned at Not on file Gender Identity Female 08/21/2020 5:05 PM EST Sexual Orientation Not on file documented as of this encounter Miscellaneous Notes * Telephone Encounter - Jackie Salinas RN - 11/17/2020 1:40 PM EDT LAB TRACKING Torrey Conteh : 1945 DIAGNOSIS: ITP LABS ORDERED: cbc diff Mondays. 11/03/20 - go to every other week lab draws. MEDICATIONS: 07/16/20-dexamethasone 40 IV day one then daily for 3 days 08/05/20-08/08/20 dexamethasone 40 mg po daily Assessment/Plan: Labs sent to Dr. Bruno to review. Pt can decide when she wants labs either one or 2 weeks, Dr. Damion landry with both. Await to hear back from patient. Pt called back and said will go in a week. Results for TORREY CONTEH ( ) as of 11/17/2020 13:40 Ref. Range 10/20/2020 00:00 10/27/2020 00:00 11/03/2020 00:00 11/17/2020 00:00 WBC Unknown 5.38 4.58 4.3 4.98 RBC Unknown 4.65 4.43 Hemoglobin Unknown 14.0 14.1 13.6 14.1 Hematocrit Unknown 43.1 42.7 41.8 43.4 Platelets Unknown 95 95 90 82 Neutr Abs (ANC) Unknown 3.28 2.63 2.56 3 documented in this encounter Plan of Treatment Upcoming Encounters Date Type Department Care Team (Late st Contact Info) Description 02/22/2024 1:00 PM EDT Office Visit Hematology/Oncology at [address] [phone] Carrie Bruno MD [facility] DR HEMATOLOGY/[place] [address] Oliva Mccabe APRN [facility] DR HEMATOLOGY/[place] [address] 09/11/2024 1:00 PM EST Office Visit Dermatology at [address] [place] [address] Lizeth Hallamn MD [facility] [place] [address] documented as of this encounter Procedures Procedure Name Priority Date/Time Associated Diagnosis Comments CBC (WITH DIFF) Routine 11/17/2020 documented in this encounter Results * CBC (with Diff) (11/17/2020) WBC 4.98 Hemoglobin 14.1 Hematocrit 43.4 Platelets 82 Neutr Abs (ANC) 3 Blood 11/17/2020 Historical Provider HEMATOLOGY ORDERA BLES documented in this encounter Visit Diagnoses Not on filedocumented in this encounter Care Teams Artist Woodblock Relationship Specialty Start Date End Date Catracho Vernon MD [facility] [place] [phone] PCP - General Family Medicine 04/21/18 documented as of this encounter
--- OUTSIDE RECORDS SUMMARY | 2024-02-21 01:29 | XMS_ITS | Encounter Summary ---
Author Organization [facility] [place] [address] Care Team Providers Care Clinical Psychiatrist Name Role Phone Catracho Vernon MD Primary Care Provider [phone] Reason for Visit * Reason Onset Date Comments Labs Only 03/03/2021 Lab Tracking Encounter Details Date Type Department Care Team (Late st Contact Info) Description 03/03/2021 Telephone Hematology/Oncology at [address] [phone] Bird Kohli, RN Labs Only [...] Telephone Encounter - Bird Kohli RN - 03/03/2021 8:52 AM EDT LAB TRACKING Torrey Conteh : 1945 DIAGNOSIS: ITP LABS ORDERED: cbc/diff every other week at [facility], also needs CMP if getting IVIG MEDICATIONS: 07/16/20- dexamethasone 40 IV day one then daily for 3 days 08/05/20-08/08/20 dexamethasone 40 mg po x4 days IVIG- 12/15,12/16,01/08, 01/09 Rituxan to start 01/16- 4 doses given Pred 40 mg x4 days 02/19/21-02/22/21 Assessment/Plan: Pt seen by Dr Baxter today in [place]. Plan is every 2 week CBC with RN tracking. Plan IVIG or dexamethasone for platelets close to or less than 30,000. ??Next due week of 03/16. She will also get BMBx and RTC after to review results with Dr Bruno. Results for TORREY CONTEH ( ) as of 03/03/2021 08:53 Ref. Range 01/26/2021 00:00 02/03/2021 00:00 02/10/2021 00:00 02/18/2021 00:00 03/03/2021 07:27 WBC Latest Ref Range: 4.0 - 9.5 x10(3)/mcL 3.56 4.21 4.90 4.33 8.0 RBC Latest Ref Range: 4.00 - 5.21 x10(6)/mcL 4.75 Hemoglobin Latest Ref Range: 11.7 - 15.5 gm/dL 13.4 13.5 13.2 13.6 14.0 Hematocrit Latest Ref Range: 35.7 - 45.8 % 41.3 40.9 40.5 40.9 42.9 MCV Latest Ref Range: 82.6 - 94.4 fL 89.8 89.9 90.3 MCH Latest Ref Range: 27.1 - 32.0 pg 29.5 MCHC Latest Ref Range: 31.7 - 35.0 gm/dL 32.6 RDWSD Latest Ref Range: 37.0 - 46.0 fL 43.4 RDWCV Latest Ref Range: 11.5 - 14.1 % 13.2 Platelets Latest Ref Range: 145 - 357 x10(3)/mcL 45 34 48 32 131 (L) MPV Latest Ref Range: 7.6 - 12.9 fL 11.5 nRBC % Auto Latest Units: % 0.0 nRBC Abs Auto Latest Ref Range: 0.000 - 0.000 x10(3)/mcL 0.000 Neutr Abs (ANC) Latest Ref Range: 1 - 6 x10(3)/mcL 1.53 2.29 3.04 2.63 4.99 Neutrophils % Latest Units: % 62.1 Immature [...] Latest Ref Range: 0.70 - 1.20 mg/dL 0.9 0.86 Estimated GFR Latest Ref Range: >=60 [...] Ref Range: 110 - 220 unit/L 177 SARS-CoV-2 Rob Ab Unknown Detected documented in this encounter Plan of Treatment Upcoming Encounters Date Type Department Care Team (Late st Contact Info) Description 02/22/2024 1:00 PM EDT Office Visit Hematology/Oncology at [address] [phone] Carrie Bruno MD [facility] DR HEMATOLOGY/[place] [address] Oliva Mccabe, TECHNICAL PUBLICATIONS MANAGER [facility] DR HEMATOLOGY/[place] [address] 09/11/2024 1:00 PM EST Office Visit Dermatology at [place] [address] [place] [address] Lizeth Hallman MD [facility] [place] [address] documented as of this encounter Visit Diagnoses Not on filedocumented in this encounter Care Teams Clinical Psychiatrist Relationship Specialty Start Date End Date Catracho Vernon MD [facility] [place] [address] PCP - General Family Medicine 04/21/18 documented as of this encounter
--- OUTSIDE RECORDS SUMMARY | 2024-02-21 01:30 | XMS_ITS | Encounter Summary ---
Author Organization [facility] [place] [address] Care Team Providers Care Channeling Machine Runner Name Role Phone Catracho Vernon MD Primary Care Provider [phone] Reason for Visit * Reason Onset Date Comments Labs Only 07/21/2020 lab tracking Encounter Details Date Type Department Care Team (Late st Contact Info) Description 07/21/2020 Telephone Hematology/Oncology at [address] [phone] Jackie Salinas RN Labs Only (lab tracking) Social History Tobacco Use Types Packs/Day Years Used Date Smoking Tobacco: Never Smokeless Tobacco: Never Sex and Gender Information Value Date Recorded Sex Assigned at Not on file Gender Identity Female 08/21/2020 5:05 PM EST Sexual Orientation Not on file documented as of this encounter Miscellaneous Notes * Telephone Encounter - Jackie Salinas, RN - 07/21/2020 12:31 PM EST LAB TRACKING Torrey tyesha DIAGNOSIS: ITP LABS ORDERED: cbc diff 07/17 and 07/21 MEDICATIONS: dexamethasone 40 IV day one then daily for 3 days Assessment/Plan: Labs sent to Dr. Bruno to review. Spoke with Torrey. She has appointment on phone with Dr. Bruno wed. 07/23 at 130pm she agrees with plan. Results for TORREY CONTEH ( ) as of 07/21/2020 12:30 Ref. Range 07/11/2020 00:00 07/16/2020 00:00 07/17/2020 00:00 07/21/2020 00:00 WBC Unknown 7.45 5.72 18.58 9.41 Hemoglobin Unknown 13.9 14.6 14.6 14.8 Hematocrit Unknown 42.7 44.8 43.0 44.3 Platelets Unknown 16 15 50 163 Neutr Abs (ANC) Unknown 4.68 3.57 17.3 5.82 documented in this encounter Plan of Treatment Upcoming Encounters Date Type Department Care Team (Late st Contact Info) Description 02/22/2024 1:00 PM EDT Office Visit Hematology/Oncology at [address] [phone] [facility] [address] HEMATOLOGY/[place] [address] [facility] [address] HEMATOLOGY/[place] [address] 09/11/2024 1:00 PM EST Office Visit Dermatology at [address] [place] [phone] Lizeth Hallman MD [facility] [address] [facility] [place] [address] documented as of this encounter Procedures Procedure Name Priority Date/Time Associated Diagnosis Comments CBC (WITH DIFF) Routine 07/21/2020 documented in this encounter Results * CBC (with Diff) (07/21/2020) WBC 9.41 Hemoglobin 14.8 Hematocrit 44.3 Platelets 163 Neutr Abs (ANC) 5.82 Blood specimen (specimen) 07/21/2020 Historical Provider HEMATOLOGY ORDERA BLES documented in this encounter Visit Diagnoses Not on filedocumented in this encounter Care Teams Channeling Machine Runner Relationship Specialty Start Date End Date Catracho Vernon MD [address] [place] [address] PCP - General Family Medicine 04/21/18 documented as of this encounter
--- OUTSIDE RECORDS SUMMARY | 2024-02-21 01:30 | XMS_ITS | Encounter Summary ---
Author Organization [facility] Address [facility] [place] [address] Care Team Providers Care Booster Plant Operator Name Role Phone Catracho Vernon MD Primary Care Provider [phone] Encounter Details Date Type Department Care Team (Late st Contact Info) Description 06/19/2018 12:00 PM EST Office Visit Hematology/Oncology at [address] [phone] Carrie Heredia MD [facility] DR HEMATOLOGY/[place] [address] Thrombocytopenia Social History Tobacco Use Types Packs/Day Years Used Date Smoking Tobacco: Never Smokeless Tobacco: Never Sex and Gender Information Value Date Recorded Sex Assigned at Not on file Gender Identity Female 08/21/2020 5:05 PM EST Sexual Orientation Not on file documented as of this encounter Last Filed Vital Signs Vital Sign Reading Time Taken Comments Blood Pressure 175/74 06/19/2018 12:00 PM EST Pulse 71 06/19/2018 12:00 PM EST Temperature 36.3 ??C (97.3 ??F) 06/19/2018 1 2:00 PM EST Respiratory Rate 18 06/19/2018 12:0 0 PM EST Oxygen Saturation 97% 06/19/2018 12: 00 PM EST Inhaled Oxygen Concentration - - Weight 71.6 kg (157 lb 12.8 oz) 018 12:00 PM EST Height 160 cm (5' 2.99) 06/19/2018 12: 00 PM EST copied Body Mass Index 27.96 06/19/2018 12:00 PM EST documented in this encounter Progress Notes * Carrie Heredia MD - 06/19/2018 12:00 PM EST OUTPATIENT HEMATOLOGY/ ONCOLOGY CONSULTATION HISTORY PRESENT ILLNESS This patient is a 72 y.o. female presenting for evaluation of thrombocytopenia, as referred by Dr Hernandez. Presentation: 71F who had a CBC with her [...] ?? 04/28/2018 - 111 (after dexamethasone) ?? HepC/ HIV- negative Treatment Course ?? 06/17- observation ?? 04/2018- Dexamethasone 40mg x 4 days INTERIM HISTORY Shanita returns in follow-up for her thrombocytopenia. She completed Dex 40 x 4 days in Apr 2018. Feeling well. No bruising or bleeding. No fevers/ chills/ night sweat. Has been having a work up for L knee pain. Xrays were concerning - orthopedics is following her andmanaging. 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 2 boys. 3 children total and 4 grandchildren total. Retired [employer]. FAMILY HISTORY: Mother: CAD, renal Father: dementia Sibs: 3 sisters Afib; CAD, DM Children: healthy No autoimmune disorders MEDICATIONS AND ALLERGIES- reviewed at this visit Medications 06/19/18 1211 Medication Sig Taking? ergocalciferol, vitamin D2, (VITAMIN D ORAL) Take 1,000 mg by mouth daily. Yes ubidecarenone (CO Q-10 ORAL) Take by mouth. PAST MEDICAL HISTORY- reviewed Patient Active Problem List Diagnosis Code ??? Healthcare maintenance Z00.00 ??? Nevus D22.9 ??? Thrombocytopenia D69.6 COMPREHENSIVE REVIEW OF SYSTEMS Besides what is mentioned in the HPI, all other systems are negative PHYSICAL EXAMINATION Most Recent Vitals: 06/19/18 1200 BP: 175/74 Pulse: 71 Resp: 18 Temp: 36.3 ??C (97.3 ??F) SpO2: 97% NAD, pleasant Heart is RRR Lung sounds are CTAB Abd is soft, NT/ ND, there is no palpable organomegally Lymphadenopathy is not appreciated Joints are not swollen or inflamed There are no gross neurologic deficits Affect and mood are appropriate for the situation There are no appreciable rashes or bruises LABORATORY EVALUATION No results found for this or any previous visit (from the past 24 hour(s)). Plts= 74 Date wbc hgb plt creat lfh 05/29/18 3.9 14.0 74k Hep C, HIV neg RADIOGRAPHIC EVALUATION As above PATHOLOGY EVALUATION As above ASSESSMENT: Shanita Francisco is a 72 y.o. female whom I follow for thrombocytopenia. He was initiallydetected in June 2017, when her platelets were 11. This was roughly 1-2 weeks after receiving the flu shot, which has been the only potential trigger identified. In 04/2018, her platelets fell to 31, without apparent trigger, and she was treated with Dex 40 x 4 days, with good response. 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 Dr. Didier Jade treated her with dexamethasone 40 mg x 4 days in April 2018. She had a nice response with her platelet count rebounding over 100,000. She is now settled down, as he suspected she would, to a platelet count between 50 and 100,000. This seems to be her baseline. We will continue to follow her every few months with labs only to keep an eye on her. I would like to see her back in about [address] Jade was using a target of keeping her over 30,000 which seems reasonable. We will continue his strategy and plan. I do not think Shanita needs more treatment at this time. I expect her to be thrombocytopenic, but will only need treatment if plts <30. I would recommend checking a CBC every few months or if she develops easy bruising. She will call for mucosal bleeding, bruising, dark stools. Plan: ?? Cbc and appt in early Sep ?? Ultimately will plan every other mo labs and less frequent appts. I discussed all of the above with the patient and all of her questions were answered. Support and counseling given as appropriate. Shanita Francisco knows that she can call us any time with questions orconcerns. This note was written or modified using scenios voice recognition software. The final note was screened for mistakes. Please excuse any remaining errors. CARRIE HEREDIA MD documented in this encounter Plan of Treatment Upcoming Encounters Date Type Department Care Team (Late st Contact Info) Description 02/22/2024 1:00 PM EDT Office Visit Hematology/Oncology at [address] [phone] Carrie Heredia MD [facility] DR HEMATOLOGY/[place] [address] Oliva Mccabe APRN [facility] HEMATOLOGY/[place] [address] 09/11/2024 1:00 PM EST Office Visit Dermatology at [facility] [address] [place] [address] Lizeth Hallman MD [facility] [address] [facility]TA [place] [address] documented as of this encounter Visit Diagnoses Diagnosis Thrombocytopenia Thrombocytopenia, unspecified documented in this encounter Care Teams Booster Plant Operator Relationship Specialty Start Date End Date Catracho Vernon MD [address] [place] [address] PCP - General Family Medicine 04/21/18 documented as of this encounter
--- OUTSIDE RECORDS SUMMARY | 2024-02-21 01:30 | XMS_ITS | Encounter Summary ---
Author Organization [facility] [place] [address] Care Team Providers Care Touring Production Manager Name Role Phone Catracho Vernon MD Primary Care Provider Reason for Visit * Reason Onset Date Comments Labs Only 07/28/2020 Lab Tracking Encounter Details Date Type Department Care Team (Late st Contact Info) Description 07/28/2020 Telephone Hematology Oncology at [address] [phone] Ebony Kendall, RN Labs Only (Lab Tracking) Social History Tobacco Use Types Packs/Day Years Used Date Smoking Tobacco: Never Smokeless Tobacco: Never Sex and Gender Information Value Date Recorded Sex Assigned at Not on file Gender Identity Female 08/21/2020 5:05 PM EST Sexual Orientation Not on file documented as of this encounter Miscellaneous Notes * Telephone Encounter - Ebony Kendall RN - 07/28/2020 2:59 PM EST LAB TRACKING Torrey Conteh : 1945 DIAGNOSIS: ITP LABS ORDERED: cbc diff 07/17 and 07/21 MEDICATIONS: 07/16/20-dexamethasone 40 IV day one then daily for 3 days Assessment/Plan: Labs sent to Dr. Bruno to review. Has appointment to be seen 07/30/20 at 0900. ADD: Pt will start dexamethasone 40 mg for 4 days starting 08/06/19. Labs on 08/04/19 and 08/18/19. Visit with provider on 08/27/19. Results for TORREY CONTEH ( ) as of 07/28/2020 14:59 Ref. Range 05/28/2019 00:00 12/13/2019 00:00 07/11/2020 00:00 07/16/2020 00:00 07/17/2020 00:00 07/21/2020 00:00 07/28/2020 00:00 WBC Unknown 4.51 4.65 7.45 5.72 18.58 9.41 6.57 RBC Unknown 4.60 Hemoglobin Unknown 14.6 14.5 13.9 14.6 14.6 14.8 14.0 Hematocrit Unknown 43.5 43.5 42.7 44.8 43.0 44.3 43.0 Platelets Unknown 124 122 16 15 50 163 141 Neutr Abs (ANC) Unknown 2.45 2.49 4.68 3.57 17.3 5.82 4.24 Sodium Unknown 140 Potassium Unknown 3.8 BUN Unknown 20 17 Creatinine Unknown 0.88 0.95 0.97 0.96 Calcium Unknown 10.2 9.4 Albumin Unknown 4.1 Total Bilirubin Unknown 0.5 Alk Phos Unknown 67 AST Unknown 15 ALT Unknown 33 documented in this encounter Plan of Treatment Upcoming Encounters Date Type Department Care Team (Late st Contact Info) Description 02/22/2024 1:00 PM EDT Office Visit Hematology/Oncology at [address] [phone] Carrie Bruno MD [facility] DR HEMATOLOGY/[place] [address] Oliva Mccabe, RAILCAR SWITCHMAN [facility] HEMATOLOGY/[place] [address] 09/11/2024 1:00 PM EST Office Visit Dermatology at [facility] [address] [place] [address] Lizeth Hallman MD [facility] [place] [address] documented as of this encounter Procedures Procedure Name Priority Date/Time Associated Diagnosis Comments CBC (WITH DIFF) Routine 07/28/2020 COMPREHENSIVE METABOLIC PANEL (NON-FASTING) Routine 07/28/2020 documented in this encounter Results * Comprehensive metabolic panel (non-fasting) (07/28/2020) BUN 17 Creatinine 0.96 Sodium 140 Potassium 3.8 Calcium 9.4 Total Bilirubin 0.5 Alk Phos 67 AST 15 ALT 33 Blood specimen (specimen) 07/28/2020 Carrie Bruno MD CHEMISTRY ORDERA BLES * CBC (with Diff) (07/28/2020) WBC 6.57 RBC 4.60 Hemoglobin 14.0 Hematocrit 43.0 Platelets 141 Neutr Abs (ANC) 4.24 Blood specimen (specimen) 07/28/2020 Carrie Bruno MD HEMATOLOGY ORDER JAMIE documented in this encounter Visit Diagnoses Not on filedocumented in this encounter Care Teams Touring Production Manager Relationship Specialty Start Date End Date Catracho Vernon MD [facility] [place] [address] PCP - General Family Medicine 04/21/18 documented as of this encounter
--- OUTSIDE RECORDS SUMMARY | 2024-02-21 01:30 | XMS_ITS | Encounter Summary ---
Author Organization [facility] Address [facility] [place] [address] Care Team Providers Care Computer Science Intern Name Role Phone Catracho Vernon MD Primary Care Provider [phone] Encounter Details Date Type Department Care Team (Late st Contact Info) Description 07/30/2020 9:00 AM EST Office Visit Hematology/Oncology at [address] [phone] Carrie Heredia MD [facility] DR HEMATOLOGY/[place] [address] Stacey Bhatt APRN [facility] DR HEMATOLOGY/[place] [address] Acute ITP Social History Tobacco Use Types Packs/Day Years Used Date Smoking Tobacco: Never Smokeless Tobacco: Never Sex and Gender Information Value Date Recorded Sex Assigned at Not on file Gender Identity Female 08/21/2020 5:05 PM EST Sexual Orientation Not on file documented as of this encounter Last Filed Vital Signs Vital Sign Reading Time Taken Comments Blood Pressure 155/70 07/30/2020 9:03 AM EST Pulse 73 07/30/2020 9:03 AM EST Temperature 35.6 ??C (96 ??F) 07/30/2020 9:03 AM EST Respiratory Rate 16 07/30/2020 9:03 AM EST Oxygen Saturation 100% 07/30/2020 9:03 AM EST Inhaled Oxygen Concentration - - Weight 73 kg (161 lb) 07/30/2020 9:03 AM EST Height 160 cm (5' 2.99) 07/30/2020 9:03 AM EST Body Mass Index 28.53 07/30/2020 9:03 AM EST documented in this encounter Progress Notes * Carrie Heredia MD - 07/30/2020 9:00 AM EST OUTPATIENT HEMATOLOGY/ ONCOLOGY CONSULTATION HISTORY PRESENT [...] Dexamethasone 40mg x 4 days INTERIM HISTORY Torrey returns in follow-up for her thrombocytopenia. She completed Dex 40 x 4 days in Apr 2018. Relapse Jul 2020 Dex 40 X 4 days 07/16- 07/12/19 with good response. Here for ongoing f/u. I had planned LD rituxan 100mg but given upcoming COVID vaccine, I prefer to hold off on rituxan until after she has had the COVID vaccine. She is in agreement. Platelets continue to respond with level on 07/28 of 1 41,000. No bleeding or bruising. 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 Rare ALFONSO Has children who work in [place] - her daughter and son-in-law work for [employer] in [place]. 2 boys. 3 children total and 4 grandchildren total. Retired [employer]. FAMILY HISTORY: Mother: CAD, renal Father: dementia Sibs: 3 sisters Afib; CAD, DM Children: healthy No autoimmune disorders MEDICATIONS AND ALLERGIES- reviewed at this visit Medications 07/30/20 0907 Medication Sig Taking? magnesium oxide 400 mg magnesium Tablet Take by mouth. Yes TURMERIC ORAL Take 1 capsule by mouth daily. Yes ergocalciferol, vitamin D2, (VITAMIN D ORAL) Take 1,000 mg by mouth daily. Yes ubidecarenone (CO Q-10 ORAL) Take by mouth. Yes dexamethasone (Decadron) 4 mg Tablet Dex 40mg daily X 4 days and repeat q 3 weeks Patient not taking: Reported on 07/30/2020 PAST MEDICAL HISTORY- reviewed Patient Active Problem List Diagnosis Code ??? Healthcare maintenance Z00.00 ??? Nevus D22.9 ??? Thrombocytopenia D69.6 ??? Spinal stenosis at L4-L5 level M48.061 COMPREHENSIVE REVIEW OF SYSTEMS Besides what is mentioned in the HPI, all other systems are negative PHYSICAL EXAM BP 155/70 (Patient Position: Sitting) Pulse 73 Temp 35.6 ??C (96 ??F) (Temporal) Resp 16 Ht160 cm (5' 2.99) Wt 73 kg (161 lb) SpO2 100% BMI 28.53 kg/m?? Body surface area is 1.8 meters squared. GENERAL: Torrey Noel Nolan appears well and is in no acute distress. ENT: Oral pharynx clear. 0.3cm R post buccal mucosal blood blister EYES: JOHNNY NECK: Supple without adenopathy. AXILLARY: no adenopathy OTHER LYMPH: no adenopathy CARDIAC: Regular rate and rhythm without S3,S4 or murmurs. LUNGS: Clear to auscultation./percussion ABDOMEN: Soft and non-tender without hepatosplenomegaly or masses. No splenomegal. EXTREMITIES: No cyanosis, clubbing, edema or calf tenderness. SKIN: No bruises or petechiae. NEUROLOGICAL: Alert and oriented to person, place and time. MUSCULOSKELETAL: No spinal or chest wall tenderness. LABORATORY EVALUATION No results found for this or any previous visit (from the past 24 hour(s)). Results for TORREY CONTEH ( ) as of 07/30/2020 09:29 Ref. Range 07/28/2020 00:00 WBC Unknown 6.57 RBC Unknown 4.60 Hemoglobin Unknown 14.0 Hematocrit Unknown 43.0 Platelets Unknown 141 Neutr Abs (ANC) Unknown 4.24 Sodium Unknown 140 Potassium Unknown 3.8 BUN Unknown 17 Creatinine Unknown 0.96 Calcium Unknown 9.4 Total Bilirubin Unknown 0.5 Alk Phos Unknown 67 AST Unknown 15 ALT Unknown 33 07/28/20 Hep B and Hep C negative RADIOGRAPHIC EVALUATION As above PATHOLOGY EVALUATION As above ASSESSMENT: Torrey Conteh [...] 4 days given 07/16-07/19/2020 with good response. We talked about some of the treatments available for treatment of ITP, but given she only received dexamethasone 40 mg x 4 days x 1 treatment in April 2018, I think repeating the dexamethasone 40mg x 4 days for several months in a row would make sense before proceeding to other treatment options. She may get a very long response from this, and possibly even a long-term cure. ?? She states that she had a caffeinated feeling high from the dex At completion. She felt well on the dex but worse at cessation. She feels well when she takes it but when she stops it she feels unsteady and lightheadedness. It is bearable but she does not like feeling unsteady on her feet. That part lasts about 2 days. ?? 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 One would be to continue with dexamethasone 40 mg x 4 days every 4 weeks for total of 6 months. This approach is tried and true. However she does have difficulty with the dexamethasone, especially feeling unsteady. Alternatively I found a small study in Journal of hematology by Dr. Km Obregon 2013; using 1 cycle of dexamethasone 40 mg/day x 4 days with weekly IV rituximab of 100 mg each. The overall response rate was 90% and at 6 months the relapse rate was only 16%. This approach seems to yield a high overall response rate and low incidence of relapse, and also would minimize her dexamethasone dosing. ?? She returns today for initiation of rituximab. However given that she is 75 years old and is actively being treated with steroids for ITP, I think she will be early on the list for the Covid vaccination. In light of this. I had like to hold off on the rituximab to be sure she gets an appropriate response to the Covid vaccination. We can always restart the rituximab at a later date. In the meantime I recommend continuing dexamethasone 40 mg x 4 days initially on a every 3 week basis but we can extend that to every 4 weeks as counts allow. ?? Ref: Journal of hematology 2013 [place]. Plan: ?? Dexamethasone 40 mg x4 days cycle #2 to start on 08/06/2020 ?? Telehealth visit on 08/27/2020 to discuss start of next dexamethasone cycle. Some of this will depend on timing of her vaccination. ?? Patient will call us when she has her vaccination scheduled, as we may want to adjust her dexamethasone dosing. ?? CBC 08/04/2020 and 08/18/2020 with RN tracking ?? IVIG if no response to dexamethasone ?? Telephone appointment with [facility] on 08/27/2020 to determine next steps ?? Rituxan 100mg weekly X 4 on hold for the current time ?? Hep B and hep C negative in July 2021. She no longer has adequate hep B antibodies, she willdiscuss the role of a booster vaccination with her PCP. ?? Encouraged to follow-up on her hypertension with her PCP. We will also monitor it at her appointments. I discussed all of the above with the patient and all of her questions were answered. Support and counseling given as appropriate. Torrey Conteh knows that she can call us any time with questions orconcerns. This note was written or modified using [employer] voice recognition software. The final note was screened for mistakes. Please excuse any remaining errors. CARRIE HEREDIA MD documented in this encounter Plan of Treatment Upcoming Encounters Date Type Department Care Team (Late st Contact Info) Description 02/22/2024 1:00 PM EDT Office Visit Hematology/Oncology at [address] [phone] Carrie Heredia MD [facility] DR HEMATOLOGY/[place] [address] Oliva Mccabe, ABDULLAHI [facility] DR HEMATOLOGY/[place] [address] 09/11/2024 1:00 PM EST Office Visit Dermatology at [address] [place] [address] Lizeth Hallman MD [facility] DR [facility] [place] [address] documented as of this encounter Procedures Procedure Name Priority Date/Time Associated Diagnosis Comments LAB SCAN 08/11/2020 12:00 AM EST documented in this encounter Results * SCAN DOC: LAB (08/11/2020 12:00 AM EST) Narrative 08/11/2020 12:00 AM EST Ordered by an unspecified provider. Scanning Provider MEDIA MGR SCAN EXT O RDR/RSLT documented in this encounter Visit Diagnoses Diagnosis Acute ITP Immune thrombocytopenic purpura documented in this encounter Care Teams Computer Science Intern Relationship Specialty Start Date End Date Catracho Vernon MD [address] [place] [address] PCP - General Family Medicine 04/21/18 documented as of this encounter
--- OUTSIDE RECORDS SUMMARY | 2024-02-21 01:30 | XMS_ITS | Encounter Summary ---
Author Organization [facility] Address [facility] [place] [address] Care Team Providers Care Traffic Agent Name Role Phone Catracho Vernon MD Primary Care Provider [phone] Encounter Details Date Type Department Care Team ([facility] st Contact Info) Description 07/23/2020 1:30 PM EST TH Visit (TeleHealth) Hematology [place] [address] Carrie Bruno MD [facility] DR HEMATOLOGY/[place] [address] Thrombocytopenia; Acute ITP Social History Tobacco Use Types Packs/Day Years Used Date Smoking Tobacco: Never Smokeless Tobacco: Never Sex and Gender Information Value Date Recorded Sex Assigned at Not on file Gender Identity Female 08/21/2020 5:05 PM EST Sexual Orientation Not on file documented as of this encounter Progress Notes * Carrie Bruno MD - 07/23/2020 1:30 PM EST Patient Active Problem List Diagnosis ??? Spinal stenosis at L4-L5 level ??? 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 Nevus ??? Healthcare maintenance I confirmed with the patient that this was a telephone encounter in lieu of an office visit. Charges may be incurred. Patient agreed and gave me permission to proceed. It was a pleasure to speak with Shanita in follow-up today. The patient was diagnosed with ITP and treated with just one course of dexamethasone 40 mg x 4 daysin July 2018. Because she had such an excellent response, Dr. Jade thought that she most likely had chronic ITP, with an acute exacerbation, and elected observation rather than continued treatment. She did well for 2 years and then relapsed in July 2020. Last week she received 4 days of dexamethasone 40 mg with significant response in her platelet count from 15,000-163,000 over the course of 1 week. She is seen in follow-up today to discuss next steps. She states that she had a caffeinated feeling high from the dex At completion. She felt well on the dex but worse at cessation. She feels well when she takes it but when she stops it she feels unsteady and lightheadedness. It is bearable but she does not like feeling unsteady on her feet. That part lasts about 2 days. I discussed 2 options for ongoing therapy [...] and also would minimize her dexamethasone dosing. I briefly reviewed some of the side effects of rituximab, but she will need teaching prior to her first dose. I explained there are infusional reactions which are controlled well. This can range fromhives to an asthma attack. In addition we need to check her for hepatitis B and C. Further teachingwill be given prior to her first dose. We agreed to try this approach first, and see if it works for her. I will plan to see her back on 07/30 in clinic. Stacey Moe the nurse practitioner will teach on rituximab followed by her first infusion. Smart set orders written today. She will need labs on 07/28 with RN tracking for CBC, CMP, and hepatitis B and C studies. Orders placed. Plan: ?? Rituxan 100mg weekly X 4 ?? CLINICAL PHARMACOLOGIST teaching for rituxan ?? Check CBC, Hep B and Hep C 07/28 at [facility] Ref: Journal of hematology 2013 Florentino-Jacque. I spent 30 min on this telehealth encounter including chart review, time with the patient and documentation. 1:40-2:10pm documented in this encounter Plan of Treatment Upcoming Encounters Date Type Department Care Team (Late st Contact Info) Description 02/22/2024 1:00 PM EDT Office Visit Hematology/Oncology at [address] [phone] Carrie Bruno MD [facility] DR HEMATOLOGY/[place] [address] Oliva Mccabe APRN [facility] DR HEMATOLOGY/[place] [address] 09/11/2024 1:00 PM EST Office Visit Dermatology at [place] [address] [place] [address] Lizeth Hallman MD [facility] [place] [address] documented as of this encounter Visit Diagnoses Diagnosis Thrombocytopenia Thrombocytopenia, unspecified Acute ITP Immune thrombocytopenic purpura documented in this encounter Care Teams Traffic Agent Relationship Specialty Start Date End Date Catracho Vernon MD [facility] [place] [address] PCP - General Family Medicine 04/21/18 documented as of this encounter
--- OUTSIDE RECORDS SUMMARY | 2024-02-21 01:30 | XMS_ITS | Encounter Summary ---
Author Organization [facility] Address [facility] [place] [address] Care Team Providers Care Architectural Designer Name Role Phone Catracho Vernon MD Primary Care Provider [phone] Encounter Details Date Type Department Care Team (Late st Contact Info) Description 09/17/2020 9:30 AM EST Office Visit Hematology/Oncology at [address] [phone] Carrie Heredia MD [facility] DR HEMATOLOGY/[place] [address] Stacey Bhatt APRN [facility] DR HEMATOLOGY/[place] [address] Acute ITP Social History Tobacco Use Types Packs/Day Years Used Date Smoking Tobacco: Never Smokeless Tobacco: Never Sex and Gender Information Value Date Recorded Sex Assigned at Not on file Gender Identity Female 08/21/2020 5:05 PM EST Sexual Orientation Not on file documented as of this encounter Last Filed Vital Signs Vital Sign Reading Time Taken Comments Blood Pressure 143/68 09/17/2020 9:38 AM EST Pulse 67 09/17/2020 9:38 AM EST Temperature 35.6 ??C (96.1 ??F) 09/17/2020 9:38 AM ES T Respiratory Rate 16 09/17/2020 9:38 AM EST Oxygen Saturation 100% 09/17/2020 9:38 AM EST Inhaled Oxygen Concentration - - Weight 72.1 kg (159 lb) 09/17/2020 9:38 AM EST Height 160 cm (5' 2.99) 09/17/2020 9:38 AM EST Body Mass Index 28.17 09/17/2020 9:38 AM EST documented in this encounter Progress Notes * Carrie Heredia MD - 09/17/2020 9:30 AM EST OUTPATIENT HEMATOLOGY/ ONCOLOGY CONSULTATION HISTORY [...] response ?? Relapse Jul 2020 INTERIM HISTORY Torrey returns in follow-up for [...] is in agreement. Platelets continue to respond for about 3 weeks with dexamethasone 40 mg x 4 days. However they do drop after about 3 to 4 weeks.. No bleeding or bruising. The patient is now received her second Covid vaccination 2 days ago. Sore arm and tachy only. 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 Rare ALFONSO Has children who work in [place] - her daughter and son-in-law work for [employer] in [facility]. 2 boys. 3 children total and 4 grandchildren total. Retired [employer]. FAMILY HISTORY: Mother: CAD, renal Father: dementia Sibs: 3 sisters Afib; CAD, DM Children: healthy No autoimmune disorders MEDICATIONS AND ALLERGIES- reviewed at this visit Medications 07/30/20 0907 Medication Sig Taking? magnesium oxide 400 mg magnesium Tablet Take by mouth. dexamethasone (Decadron) 4 mg Tablet Dex 40mg daily X 4 days and repeat q 3 weeks Patient not taking: Reported on 07/30/2020 TURMERIC ORAL Take 1 capsule by mouth daily. ergocalciferol, vitamin D2, (VITAMIN D ORAL) Take [...] all other systems are negative PHYSICAL EXAM There were no vitals taken for this visit. There is no height or weight on file to calculate BSA. Examination deferred today LABORATORY EVALUATION No results found for this or any previous visit (from the past 24 hour(s)). Results for TORREY CONTEH ( ) as of 09/16/2020 19:06 Ref. Range 08/11/2020 00:00 08/18/2020 00:00 08/25/2020 00:00 09/01/2020 00:00 09/08/2020 00:00 09/15/2020 00:00 WBC Unknown 9.73 7.25 5.19 9.12 6.62 5.77 Hemoglobin Unknown 15.7 13.8 13.6 14.2 13.9 13.5 Hematocrit Unknown 46.7 42.3 41.2 42.9 42.3 41.2 Platelets Unknown 167 123 86 198 159 91 Neutr Abs (ANC) Unknown 5.87 5.16 3.09 7.73 4.12 3.53 Creatinine Unknown 0.9 0.8 Glucose Wh Bl Unknown 164 94 Alk Phos Unknown 74 AST Unknown 32 ALT Unknown 134 42 07/28/20 Hep B and Hep C negative [...] She has now had both Covid vaccinations. Ideally I would like to wait at least a month before giving her more steroid or rituximab, in order to maximize her response to the vaccination. Her platelets are starting to drop andit is reasonable to consider IVIG. I discussed IVIG with Torrey Conteh. We discussed risks of allergic reactions, renal insufficiency. Can include but not limited to rash, hives, anaphylaxis. Discussed premeds. she agrees to proceed with treatment if needed. She prefers to wait and see if her plt fall lower before agreeing to IVIG. I expect that the IVIG will work for about 3 weeks. At that time we can either redose her with IVIG, or consider rituximab. If we start rituximab, I would plan to do it in combination with dexamethasone dosed at 40 mg x 4 days every 3 weeks. (See reference below) hopefully, with the addition of rituximab we would then be able to wean her off of the dexamethasone. If we are unable to get her off the steroids, then other options include splenectomy, eltrombopag, Nplate, and cyclosporine combinations. The cyclosporine combinations are more challenging in [facility] as we cannot get levels easily. Torrey reports that for a week after each Dex she feels like I am in a different world unstable onher feet, and lightheaded. Dizzy. She asked about weaning the dexamethasone which would be fine. I am going to have her take 40 mg x 4 days then wean her 12, 8, 4 mg and see if that helps her. As above, we are not planning to give her more dexamethasone or rituximab until mid September when it has beenabout a month since her second Covid vaccination. ?? Ref: Journal of Hematology 2013 Florentino-Jacque. Plan: ?? Dexamethasone 40 mg on hold given recent Covid vaccination ?? Telehealth visit in 3 weeks to re-evaluate and make plan for next steps. ?? Avoid dex and rituxan immediately before or after her COVID vaccine (will use IVIG if necessary during this time frame) ?? CBC mondays with RN tracking; CMP the week next appointment ?? IVIG 1 g/kg/day x 2 days (depending on repeat plt count) ?? Rituxan 100mg weekly X 4 on [...] will also monitor it at her appointments. ?? She got her first COVID vaccine on 08/18/20. Second vaccine received 09/15/20. I discussed all of the above with the patient and all of her questions were answered. Support and counseling given as appropriate. Torrey Conteh knows that she can call us any time with questions orconcerns. This note was written or modified using [employer] voice recognition software. The final note was screened for mistakes. Please excuse any remaining errors. CARRIE HEREDIA MD documented in this encounter Plan of Treatment Upcoming Encounters Date Type Department Care Team (Late st Contact Info) Description 02/22/2024 1:00 PM EDT Office Visit Hematology/Oncology at [address] [address] Carrie Heredia MD [facility] DR HEMATOLOGY/[place] [address] Oliva Mccabe, ABDULLAHI [facility] DR HEMATOLOGY/[place] [address] 09/11/2024 1:00 PM EST Office Visit Dermatology at [facility] [address] [place] [address] Lizeth Hallman MD [facility] [place] [address] documented as of this encounter Visit Diagnoses Diagnosis Acute ITP Immune thrombocytopenic purpura documented in this encounter Care Teams Architectural Designer Relationship Specialty Start Date End Date Catracho Vernon MD [facility] [place] [phone] PCP - General Family Medicine 04/21/18 documented as of this encounter
--- OUTSIDE RECORDS SUMMARY | 2024-02-21 01:30 | XMS_ITS | Encounter Summary ---
Author Organization [facility] [place] [address] Care Team Providers Care Byproducts Pump Operator Name Role Phone Catracho Vernon MD Primary Care Provider [phone] Reason for Visit * Reason Onset Date Comments Labs Only 11/03/2020 Lab Tracking Encounter Details Date Type Department Care Team (Late st Contact Info) Description 11/03/2020 Telephone Hematology Oncology at [address] [phone] Ebony Kendall, RN Labs Only (Lab Tracking) Social History Tobacco Use Types Packs/Day Years Used Date Smoking Tobacco: Never Smokeless Tobacco: Never Sex and Gender Information Value Date Recorded Sex Assigned at Not on file Gender Identity Female 08/21/2020 5:05 PM EST Sexual Orientation Not on file documented as of this encounter Miscellaneous Notes * Telephone Encounter - Ebony Kendall, RN - 11/03/2020 12:54 PM EDT LAB TRACKING Torrey Conteh : 1945 DIAGNOSIS: ITP LABS ORDERED: cbc diff Mondays. 11/03/20 - go to every other week lab draws. MEDICATIONS: 07/16/20-dexamethasone 40 IV day one then daily for 3 days 08/05/20-08/08/20 dexamethasone 40 mg po daily Assessment/Plan: Labs sent to Dr. Bruno to review. Per Dr. Bruno it pt remains stable next week will go to every other week for labs. Called patient. Next lab draw 11/17. She agrees with plan. Results for TORREY CONTEH ( ) as of 11/03/2020 12:53 Ref. Range 10/13/2020 00:00 10/20/2020 00:00 10/27/2020 00:00 11/03/2020 00:00 WBC Unknown 5.24 5.38 4.58 4.3 RBC Unknown 4.65 4.43 Hemoglobin Unknown 14.4 14.0 14.1 13.6 Hematocrit Unknown 44.2 43.1 42.7 41.8 Platelets Unknown 99 95 95 90 Neutr Abs (ANC) Unknown 3.11 3.28 2.63 2.56 documented in this encounter Plan of Treatment Upcoming Encounters Date Type Department Care Team (Late st Contact Info) Description 02/22/2024 1:00 PM EDT Office Visit Hematology/Oncology at [address] [address] Carrie Bruno MD [facility] DR HEMATOLOGY/[place] [address] Oliva Mccabe APRN [facility] DR HEMATOLOGY/[place] [address] 09/11/2024 1:00 PM EST Office Visit Dermatology at [address] [place] [phone] Lizeth Hallman MD [facility] [place] [address] documented as of this encounter Procedures Procedure Name Priority Date/Time Associated Diagnosis Comments CBC (WITH DIFF) Routine 11/03/2020 documented in this encounter Results * CBC (with Diff) (11/03/2020) WBC 4.3 RBC 4.43 Hemoglobin 13.6 Hematocrit 41.8 Platelets 90 Neutr Abs (ANC) 2.56 Blood 11/03/2020 Carrie Bruno MD HEMATOLOGY ORDER JAMIE documented in this encounter Visit Diagnoses Not on filedocumented in this encounter Care Teams Byproducts Pump Operator Relationship Specialty Start Date End Date Catracho Vernon MD [address] [place] [address] PCP - General Family Medicine 04/21/18 documented as of this encounter
--- OUTSIDE RECORDS SUMMARY | 2024-02-21 01:30 | XMS_ITS | Encounter Summary ---
Author Organization [facility] [place] [address] Care Team Providers Care Business Intelligence Analyst Name Role Phone Catracho Vrenon MD Primary Care Provider [phone] Reason for Visit * Reason Onset Date Comments Labs Only 09/29/2020 lab tracking Encounter Details Date Type Department Care Team (Late st Contact Info) Description 09/29/2020 Telephone Hematology/Oncology at [address] [phone] Jackie Salinas RN Labs Only [...] Telephone Encounter - Jackie Salinas RN - 09/29/2020 1:58 PM EST LAB TRACKING Torrey Francisco : 1945 DIAGNOSIS: ITP LABS ORDERED: cbc diff mondays MEDICATIONS: 07/16/20-dexamethasone 40 IV day one then daily for 3 days 08/05/20-08/08/20 dexamethasone 40 mg po daily Assessment/Plan: Labs sent to Dr. Bruno to review. Labs again next Tuesday. Due to see Dr. Bruno on October 08. Results for WERO TORREY Noel ( ) as of 09/29/2020 13:58 Ref. Range 09/15/2020 00:00 09/17/2020 00:00 09/22/2020 00:00 09/29/2020 00:00 WBC Unknown 5.77 5.08 3.89 4.88 Hemoglobin Unknown 13.5 13.1 13.5 13.8 Hematocrit Unknown 41.2 39.9 41.5 42.4 Platelets Unknown 91 88 155 150 Neutr Abs (ANC) Unknown 3.53 3.03 2.07 2.72 documented in this encounter Plan of Treatment Upcoming Encounters Date Type Department Care Team (Late st Contact Info) Description 02/22/2024 1:00 PM EDT Office Visit Hematology/Oncology at [address] [phone] Carrie Bruno MD [facility] DR HEMATOLOGY/[place] [address] Oliva Mccabe APRN [facility] DR HEMATOLOGY/[place] [address] 09/11/2024 1:00 PM EST Office Visit Dermatology at [facility] [address] [facility] [place] [address] Lizeth Hallman MD [facility] [address] [place] [address] documented as of this encounter Procedures Procedure Name Priority Date/Time Associated Diagnosis Comments CBC (WITH DIFF) Routine 09/29/2020 documented in this encounter Results * CBC (with Diff) (09/29/2020) WBC 4.88 Hemoglobin 13.8 Hematocrit 42.4 Platelets 150 Neutr Abs (ANC) 2.72 Blood 09/29/2020 Historical Provider HEMATOLOGY ORDERA BLES documented in this encounter Visit Diagnoses Not on filedocumented in this encounter Care Teams Business Intelligence Analyst Relationship Specialty Start Date End Date Catracho Vernon MD [address] [place] [address] PCP - General Family Medicine 04/21/18 documented as of this encounter
--- OUTSIDE RECORDS SUMMARY | 2024-02-21 01:30 | XMS_ITS | Encounter Summary ---
Author Organization [facility] [place] [address] Care Team Providers Care Gis Manager Name Role Phone Catracho Vernon MD Primary Care Provider [phone] Reason for Visit * Reason Onset Date Comments Labs Only 10/13/2020 lab tracking Encounter Details Date Type Department Care Team (Late st Contact Info) Description 10/13/2020 Telephone Hematology/Oncology at [address] [phone] Jackie Salinas RN Labs Only (lab tracking) Social History Tobacco Use Types Packs/Day Years Used Date Smoking Tobacco: Never Smokeless Tobacco: Never Sex and Gender Information Value Date Recorded Sex Assigned at Not on file Gender Identity Female 08/21/2020 5:05 PM EST Sexual Orientation Not on file documented as of this encounter Miscellaneous Notes * Telephone Encounter - Jackie Salinas RN - 10/13/2020 12:14 PM EDT LAB TRACKING Torrey Francisco : 1945 DIAGNOSIS: ITP LABS ORDERED: cbc diff mondays MEDICATIONS: 07/16/20-dexamethasone 40 IV day one then daily for 3 days 08/05/20-08/08/20 dexamethasone 40 mg po daily Assessment/Plan: Labs sent to Dr. Bruno to review. Labs again next Tuesday. Spoke with Torrey , she agrees with plan. Results for WEROTORREY Noel ( ) as of 10/13/2020 12:13 Ref. Range 09/22/2020 00:00 09/29/2020 00:00 10/06/2020 00:00 10/13/2020 00:00 WBC Unknown 3.89 4.88 5.1 5.24 Hemoglobin Unknown 13.5 13.8 14.1 14.4 Hematocrit Unknown 41.5 42.4 43.0 44.2 Platelets Unknown 155 150 129 99 Neutr Abs (ANC) Unknown 2.07 2.72 3 3.11 documented in this encounter Plan of Treatment Upcoming Encounters Date Type Department Care Team (Late st Contact Info) Description 02/22/2024 1:00 PM EDT Office Visit Hematology/Oncology at [address] [phone] Carrie Bruno MD [facility] [address] HEMATOLOGY/[place] [address] Oliva Mccabe APRN [facility] [address] HEMATOLOGY/[place] [address] 09/11/2024 1:00 PM EST Office Visit Dermatology at [facility] [address] [place] [address] Lizeth Hallman MD [facility] [place] [address] documented as of this encounter Procedures Procedure Name Priority Date/Time Associated Diagnosis Comments CBC (WITH DIFF) Routine 10/13/2020 documented in this encounter Results * CBC (with Diff) (10/13/2020) WBC 5.24 Hemoglobin 14.4 Hematocrit 44.2 Platelets 99 Neutr Abs (ANC) 3.11 Blood 10/13/2020 Historical Provider HEMATOLOGY ORDERA BLES documented in this encounter Visit Diagnoses Not on filedocumented in this encounter Care Teams Gis Manager Relationship Specialty Start Date End Date Catracho Vernon MD [address] [place] [address] PCP - General Family Medicine 04/21/18 documented as of this encounter
--- OUTSIDE RECORDS SUMMARY | 2024-02-21 01:30 | XMS_ITS | Encounter Summary ---
Author Organization [facility] Address [facility] [place] [address] Care Team Providers Care Segmental Paver Installer Name Role Phone Catracho Vernon MD Primary Care Provider [phone] Encounter Details Date Type Department Care Team (Late st Contact Info) Description 12/06/2018 9:30 AM EDT Office Visit Hematology/Oncology at [address] [phone] Carrie Heredia MD [facility] DR HEMATOLOGY/[place] [address] Stacey Bhatt APRN [facility] DR HEMATOLOGY/[place] [address] Thrombocytopenia Social History Tobacco Use Types Packs/Day Years Used Date Smoking Tobacco: Never Smokeless Tobacco: Never Sex and Gender Information Value Date Recorded Sex Assigned at Not on file Gender Identity Female 08/21/2020 5:05 PM EST Sexual Orientation Not on file documented as of this encounter Last Filed Vital Signs Vital Sign Reading Time Taken Comments Blood Pressure 136/74 12/06/2018 9:39 AM EDT Pulse 62 12/06/2018 9:39 AM EDT Temperature 36.6 ??C (97.9 ??F) 12/06/2018 9:39 AM ED T Respiratory Rate 16 12/06/2018 9:39 AM EDT Oxygen Saturation 98% 12/06/2018 9:39 AM EDT Inhaled Oxygen Concentration - - Weight 70.3 kg (155 lb) 12/06/2018 9:39 AM EDT Height 160 cm (5' 2.99) 12/06/2018 9:39 AM EDT Body Mass Index 27.46 12/06/2018 9:39 AM EDT documented in this encounter Progress Notes * Carrie Heredia MD - 12/06/2018 9:30 AM EDT OUTPATIENT HEMATOLOGY/ ONCOLOGY CONSULTATION HISTORY PRESENT ILLNESS This patient is a 73 y.o. female presenting for evaluation of thrombocytopenia, [...] ~06/01- ?? 06/03- ?? 06/08- ?? 07/08- ? 09/2017- 111 ?? 04/21/2018- 31 - given [...] or bleeding. No fevers/ chills/ night sweat. No illnesses or viruses. Took trip to [place]. Had a great time! 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 50th wedding anniversary is 2019! Rare ALFONSO Has children who work in [place] - her daughter and son-in-law work for [employer] in [place]. 2 boys. 3 children total and 4 grandchildren total. Retired [employer]. FAMILY HISTORY: Mother: CAD, renal Father: dementia Sibs: 3 sisters Afib; CAD, DM Children: healthy No autoimmune disorders MEDICATIONS AND ALLERGIES- reviewed at this visit Medications 12/06/18 0944 Medication Sig Taking? TURMERIC ORAL Take 1 capsule by mouth daily. Yes omega-3 acid ethyl esters (LOVAZA) 1 gram Capsule Take 2 g by mouth 2 times daily. Yes ergocalciferol, vitamin D2, (VITAMIN D [...] are negative PHYSICAL EXAMINATION Most Recent Vitals: 12/06/18 0939 BP: 136/74 Pulse: 62 Resp: 16 Temp: 36.6 ??C (97.9 ??F) SpO2: 98% NAD, pleasant Heart is RRR Lung sounds [...] 3.9 14.0 74k Hep C, HIV neg 09/04/18 4.2 14.5 103k 0.87 nl 12/05/18 734 14.4 98k 0.87 nl RADIOGRAPHIC EVALUATION As above PATHOLOGY EVALUATION As above ASSESSMENT: Shanita Francisco is a 73 y.o. female whom I follow for thrombocytopenia. [...] call for mucosal bleeding, bruising, dark stools. Shanita understands the reasons to call. Plan: ?? Cbc and appt in 6 months ?? CBC first week of March at [facility] with RN tracking I discussed all of the above with the patient and all of her questions were answered. Support and counseling given as appropriate. Shanita Francisco knows that she can call us any time with questions orconcerns. This note was written or modified using [employer] voice recognition software. The final note was screened for mistakes. Please excuse any remaining errors. CARRIE HEREDIA MD documented in this encounter Plan of Treatment Upcoming Encounters Date Type Department Care Team (Late st Contact Info) Description 02/22/2024 1:00 PM EDT Office Visit Hematology/Oncology at [address] [phone] Carrie Heredia MD [facility] HEMATOLOGY/[place] [address] Oliva Mccabe APRN [facility] HEMATOLOGY/[place] [address] 09/11/2024 1:00 PM EST Office Visit Dermatology at [facility] [address] [place] [phone] Lizeth Hallman MD [facility] [address] [place] [address] documented as of this encounter Visit Diagnoses Diagnosis Thrombocytopenia Thrombocytopenia, unspecified documented in this encounter Care Teams Segmental Paver Installer Relationship Specialty Start Date End Date Catracho Vernon MD [address] [place] [address] PCP - General Family Medicine 04/21/18 documented as of this encounter
--- OUTSIDE RECORDS SUMMARY | 2024-02-21 01:30 | XMS_ITS | Encounter Summary ---
Author Organization [facility] [place] [address] Care Team Providers Care Barrel Filler Head Name Role Phone Catracho Vernon MD Primary Care Provider [phone] Reason for Visit * Reason Onset Date Comments Labs Only 08/04/2020 Lab tracking Encounter Details Date Type Department Care Team (Late st Contact Info) Description 08/04/2020 Telephone Hematology/Oncology at [address] [phone] Leah Ray, RN Labs Only (Lab tracking) Social History Tobacco Use Types Packs/Day Years Used Date Smoking Tobacco: Never Smokeless Tobacco: Never Sex and Gender Information Value Date Recorded Sex Assigned at Not on file Gender Identity Female 08/21/2020 5:05 PM EST Sexual Orientation Not on file documented as of this encounter Miscellaneous Notes * Telephone Encounter - Leah Ray, RN - 08/04/2020 10:31 AM EST LAB TRACKING Torrey Conteh : 1945 DIAGNOSIS: ITP LABS ORDERED: cbc diff 08/11, 08/18, 08/25 MEDICATIONS: 07/16/20-dexamethasone 40 IV day one then daily for 3 days Assessment/Plan: Labs sent to Dr. Bruno to review. . Pt will start dexamethasone 40 mg for 4 days starting 08/05/19. Labs now weekly, next on 08/11. Visit with provider on 08/27/19. Called and spoke with Torrey, she is agreeable with plan. She will call to schedule labs 08/11. And will go pick up operator Dex to start tomorrow. Results for TORREY CONTEH ( ) as of 08/04/2020 10:34 Ref. Range 07/16/2020 00:00 07/17/2020 00:00 07/21/2020 00:00 07/28/2020 00:00 08/04/2020 00:00 WBC Unknown 5.72 18.58 9.41 6.57 5.54 RBC Unknown 4.60 Hemoglobin Unknown 14.6 14.6 14.8 14.0 14.2 Hematocrit Unknown 44.8 43.0 44.3 43.0 43.8 Platelets Latest Ref Range: 130 - 400 15 50 163 141 41 (A) Neutr Abs (ANC) Unknown 3.57 17.3 5.82 4.24 3.39 documented in this encounter Plan of Treatment Upcoming Encounters Date Type Department Care Team (Late st Contact Info) Description 02/22/2024 1:00 PM EDT Office Visit Hematology/Oncology at [address] [phone] Carrie Bruno MD [facility] DR HEMATOLOGY/[place] [address] Oliva Mccabe APRN [facility] DR HEMATOLOGY/[place] [address] 09/11/2024 1:00 PM EST Office Visit Dermatology at [facility] [address] [place] [phone] Lizeth Hallman MD [facility] [address] [place] [address] documented as of this encounter Procedures Procedure Name Priority Date/Time Associated Diagnosis Comments CBC (WITH DIFF) Routine 08/04/2020 documented in this encounter Results * (ABNORMAL) CBC (with Diff) (08/04/2020) WBC 5.54 Hemoglobin 14.2 Hematocrit 43.8 Platelets 41(A) 130 - 400 Neutr Abs (ANC) 3.39 Blood specimen (specimen) 08/04/2020 Carrie Bruno MD HEMATOLOGY ORDER JAMIE documented in this encounter Visit Diagnoses Not on filedocumented in this encounter Care Teams Barrel Filler Head Relationship Specialty Start Date End Date Catracho Vernon MD [address] [place] [address] [place] [address] PCP - General Family Medicine 04/21/18 documented as of this encounter
--- OUTSIDE RECORDS SUMMARY | 2024-02-21 01:30 | XMS_ITS | Encounter Summary ---
Author Organization [facility] [place] [address] Care Team Providers Care Estate Tax Examiner Name Role Phone Catracho Vernon MD Primary Care Provider [phone] Encounter Details Date Type Department Care Team (Late Contact Info) Description 07/16/2020 Orders Only Hematology/Oncology at [address] [phone] Jackie Salinas RN Thrombocytopenia Social History Tobacco Use Types Packs/Day [...] 1:00 PM EDT Office Visit Hematology/Oncology at [address] [phone] Carrie Bruno MD [facility] DR HEMATOLOGY/[place] [address] Oliva Mccabe APRN [facility] HEMATOLOGY/[place] [address] 09/11/2024 1:00 PM EST Office Visit Dermatology at [facility] [address] [place] [address] Lizeth Hallman MD [facility] [address] [place] [address] documented as of this encounter Visit Diagnoses Diagnosis Thrombocytopenia Thrombocytopenia, unspecified documented in this encounter Care Teams Estate Tax Examiner Relationship Specialty Start Date End Date aCtracho Vernon MD [address] [place] [address] [place] [address] PCP - General Family Medicine 04/21/18 documented as of this encounter
--- OUTSIDE RECORDS SUMMARY | 2024-02-21 01:30 | XMS_ITS | Encounter Summary ---
Author Organization [facility] [place] [address] Care Team Providers Care Auto Transmission Specialist Name Role Phone Catracho Vernon MD Primary Care Provider [phone] Reason for Visit * Reason Onset Date Comments Medical Care Coordination 12/04/2018 Encounter Details Date Type Department Care Team (Late Contact Info) Description 12/04/2018 Telephone Hematology Oncology at [address] [phone] Robina Anthony I, [place] Medical Care Coordination Social History Tobacco Use Types Packs/Day Years Used Date Smoking Tobacco: Never Smokeless Tobacco: Never Sex and Gender Information Value Date Recorded Sex Assigned at Not on file Gender Identity Female 08/21/2020 5:05 PM EST Sexual Orientation Not on file documented as of this encounter Miscellaneous Notes * Telephone Encounter - Robina Anthony RN - 12/04/2018 4:39 PM EDT Patient did not have lab drawn today. Discussed with clinical financial secretary. Patient to have lab done this month and follow up with Dr Bruno. Can see Dr bruno on 12/06 at 8:30 am. Left message on identified VM that patient can see Dr Bruno on 12/06. Requested call back to confirm. documented in this encounter Plan of Treatment Upcoming Encounters Date Type Department Care Team (Late st Contact Info) Description 02/22/2024 1:00 PM EDT Office Visit Hematology/Oncology at [address] [phone] Carrie Bruno MD [facility] DR HEMATOLOGY/[place] [address] Oliva Mccabe, PERSONNEL MANAGER [facility] DR HEMATOLOGY/[place] [address] 09/11/2024 1:00 PM EST Office Visit Dermatology at [facility] [address] [place] [phone] Lizeth Hallman MD [facility] [place] [address] documented as of this encounter Visit Diagnoses Not on filedocumented in this encounter Care Teams Auto Transmission Specialist Relationship Specialty Start Date End Date Catracho Vernon MD [facility] [place] [address] PCP - General Family Medicine 04/21/18 documented as of this encounter
--- OUTSIDE RECORDS SUMMARY | 2024-02-21 01:30 | XMS_ITS | Encounter Summary ---
Author Organization [facility] [place] [address] Care Team Providers Care Embedded Software Programmer Name Role Phone Catracho Vernon MD Primary Care Provider [phone] Reason for Visit * Reason Onset Date Comments Labs Only 09/08/2020 lab tracking Encounter Details Date Type Department Care Team (Late st Contact Info) Description 09/08/2020 Telephone Hematology/Oncology at [address] [phone] Jackie Salinas RN Labs Only (lab tracking) Social History Tobacco Use Types Packs/Day Years Used Date Smoking Tobacco: Never Smokeless Tobacco: Never Sex and Gender Information Value Date Recorded Sex Assigned at Not on file Gender Identity Female 08/21/2020 5:05 PM EST Sexual Orientation Not on file documented as of this encounter Miscellaneous Notes * Telephone Encounter - Jackie Salinas RN - 09/08/2020 11:17 AM EST LAB TRACKING Torrey Conteh : 1945 DIAGNOSIS: ITP LABS ORDERED: cbc diff mondays MEDICATIONS: 07/16/20-dexamethasone 40 IV day one then daily for 3 days 08/05/20-08/08/20 dexamethasone 40 mg po daily Assessment/Plan: Labs sent to Dr. Bruno to review. No changes, pt will get labs in a week, just cbc diff. Results for TORREY CONTEH ( ) as of 09/08/2020 11:16 Ref. Range 08/25/2020 00:00 09/01/2020 00:00 09/08/2020 00:00 WBC Unknown 5.19 9.12 6.62 Hemoglobin Unknown 13.6 14.2 13.9 Hematocrit Unknown 41.2 42.9 42.3 Platelets Unknown 86 198 159 Neutr Abs (ANC) Unknown 3.09 7.73 4.12 Creatinine Unknown 0.9 0.8 Glucose Wh Bl Unknown 164 94 Alk Phos Unknown 74 AST Unknown 32 ALT Unknown 134 42 documented in this encounter Plan of Treatment Upcoming Encounters Date Type Department Care Team (Late st Contact Info) Description 02/22/2024 1:00 PM EDT Office Visit Hematology/Oncology at [address] [phone] Carrie Bruno MD [facility] DR HEMATOLOGY/[place] [address] Oliva Mccabe APRN [facility] DR HEMATOLOGY/[place] [address] 09/11/2024 1:00 PM EST Office Visit Dermatology at [facility] [address] [place] [address] Lizeth Hallman MD [facility] [place] [address] documented as of this encounter Procedures Procedure Name Priority Date/Time Associated Diagnosis Comments CBC (WITH DIFF) Routine 09/08/2020 documented in this encounter Results * CBC (with Diff) (09/08/2020) WBC 6.62 Hemoglobin 13.9 Hematocrit 42.3 Platelets 159 Neutr Abs (ANC) 4.12 Glucose Wh Bl 94 ALT 42 Creatinine 0.8 Blood 09/08/2020 Historical Provider HEMATOLOGY ORDERA BLES documented in this encounter Visit Diagnoses Not on filedocumented in this encounter Care Teams Embedded Software Programmer Relationship Specialty Start Date End Date Catracho Vernon MD [address] [place] [address] PCP - General Family Medicine 04/21/18 documented as of this encounter
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
--- OUTSIDE RECORDS SUMMARY | 2024-02-21 01:30 | XMS_ITS | Encounter Summary ---
Author Organization [facility] [place] [address] Care Team Providers Care Prosthodontist/Educator Name Role Phone Catracho Vernon MD Primary Care Provider [phone] Reason for Visit * Reason Onset Date Comments Labs Only 09/22/2020 Lab Tracking Encounter Details Date Type Department Care Team (Late st Contact Info) Description 09/22/2020 Telephone Hematology Oncology at [address] [phone] Ebony Kendall, RN Labs Only (Lab Tracking) Social History Tobacco Use Types Packs/Day Years Used Date Smoking Tobacco: Never Smokeless Tobacco: Never Sex and Gender Information Value Date Recorded Sex Assigned at Not on file Gender Identity Female 08/21/2020 5:05 PM EST Sexual Orientation Not on file documented as of this encounter Miscellaneous Notes * Telephone Encounter - Ebony Kendall RN - 09/22/2020 3:28 PM EST LAB TRACKING Torrey Conteh : 1945 DIAGNOSIS: ITP LABS ORDERED: cbc diff mondays MEDICATIONS: 07/16/20-dexamethasone 40 IV day one then daily for 3 days 08/05/20-08/08/20 dexamethasone 40 mg po daily Assessment/Plan: Labs sent to Dr. Bruno/Manfred Bhatt APRN for review. Hold IVIG this week. Recheck labs Tuesday09/29/20. Patient notified and is in agreement with the plan. Results for TORREY CONTEH ( ) as of 09/22/2020 15:28 Ref. Range 09/15/2020 00:00 09/17/2020 00:00 09/22/2020 00:00 WBC Unknown 5.77 5.08 3.89 Hemoglobin Unknown 13.5 13.1 13.5 Hematocrit Unknown 41.2 39.9 41.5 Platelets Unknown 91 88 155 Neutr Abs (ANC) Unknown 3.53 3.03 2.07 documented in this encounter Plan of Treatment Upcoming Encounters Date Type Department Care Team (Late st Contact Info) Description 02/22/2024 1:00 PM EDT Office Visit Hematology/Oncology at [address] [phone] Carrie Bruno MD [facility] DR HEMATOLOGY/[place] [address] Oliva Mccabe APRN [facility] DR HEMATOLOGY/[place] [address] 09/11/2024 1:00 PM EST Office Visit Dermatology at [address] [place] [address] Lizeth Hallman MD [facility] [place] [address] documented as of this encounter Procedures Procedure Name Priority Date/Time Associated Diagnosis Comments CBC (WITH DIFF) Routine 09/22/2020 documented in this encounter Results * CBC (with Diff) (09/22/2020) WBC 3.89 Hemoglobin 13.5 Hematocrit 41.5 Platelets 155 Neutr Abs (ANC) 2.07 Blood 09/22/2020 Carrie Bruno MD HEMATOLOGY ORDER JAMIE documented in this encounter Visit Diagnoses Not on filedocumented in this encounter Care Teams Prosthodontist/Educator Relationship Specialty Start Date End Date Catracho Vernon MD [address] [address] PCP - General Family Medicine 04/21/18 documented as of this encounter
--- OUTSIDE RECORDS SUMMARY | 2024-02-21 01:30 | XMS_ITS | Encounter Summary ---
Author Organization [facility] Address [facility] [place] [address] Care Team Providers Care Harmonic Analyst Name Role Phone Catracho Vernon MD Primary Care Provider [phone] Reason for Referral * High Dollar Medication (Routine) - Specialty Diagnoses / Procedures Referred By Edson evans Referred To Contact Hematology and Oncology Diagnoses Thrombocytopenia Carrie Bruno MD [facility] HEMATOLOGY/[place] [address] [phone] Referral ID Status Reason Start Date Expiration Date V isits Requested Visits Authorized [id number] Consult, Test & Treat 07/23/2020 07/23/2021 1 1 Encounter Details Date Type Department Care Team (Late st Contact Info) Description 07/23/2020 Orders Only [place] [address] Carrie Bruno MD [facility] HEMATOLOGY/[place] [address] Thrombocytopenia Social History Tobacco Use [...] 1:00 PM EDT Office Visit Hematology/Oncology at [address] [phone] Carrie Bruno MD [facility] DR HEMATOLOGY/[place] [address] Oliva Mccabe APRN [facility] DR HEMATOLOGY/[place] [address] 09/11/2024 1:00 PM EST Office Visit Dermatology at [facility] [address] [place] [address] Lizeth Hallman MD [facility] [address] [place] [address] Scheduled Referrals Name Type Priority Associated Diagnoses Order Schedule Auth Request for Infusion Medication Outpatient Referral Routine Thrombocytopenia Ordered: 07/23/2020 documented as of this encounter Visit Diagnoses Diagnosis Thrombocytopenia Thrombocytopenia, unspecified documented in this encounter Care Teams Harmonic Analyst Relationship Specialty Start Date End Date Catracho Vernon MD [facility] [place] [address] PCP - General Family Medicine 04/21/18 documented as of this encounter
--- OUTSIDE RECORDS SUMMARY | 2024-02-21 01:30 | XMS_ITS | Encounter Summary ---
Author Organization [facility] [place] [address] Care Team Providers Care Tobacco Wrapping Machine Tender Name Role Phone Catracho Vernon MD Primary Care Provider [phone] Reason for Visit * Reason Onset Date Comments Labs Only 12/06/2018 lab tracking Encounter Details Date Type Department Care Team (Late st Contact Info) Description 12/06/2018 Telephone Hematology/Oncology at [address] [phone] Jackie Salinas RN Labs Only (lab tracking) Social History Tobacco Use Types Packs/Day Years Used Date Smoking Tobacco: Never Smokeless Tobacco: Never Sex and Gender Information Value Date Recorded Sex Assigned at Not on file Gender Identity Female 08/21/2020 5:05 PM EST Sexual Orientation Not on file documented as of this encounter Miscellaneous Notes * Telephone Encounter - Jackie Salinas, RN - 12/06/2018 12:05 PM EDT LAB TRACKING Torrey Conteh [id number] DIAGNOSIS: Thrombocytopenia LABS ORDERED: cbc diff MEDICATIONS: none Assessment/Plan: Saw Dr. Bruno in clinic today. Labs again Mar.05. See provider with labs in Jun. Results for TORREY CONTEH ( ) as of 12/06/2018 12:07 Ref. Range 04/21/2018 13:46 04/28/2018 08:34 05/12/2018 11:03 12/05/2018 00:00 WBC Unknown 6.3 9.0 4.6 7.34 RBC Latest Ref Range: 4.00 - 5.21 x10(6)/mcL 4.85 4.91 4.68 Hemoglobin Unknown 14.4 14.9 14.0 14.4 Hematocrit Unknown 43.0 44.4 42.2 42.5 MCV Latest Ref Range: 82.6 - 94.4 fL 88.7 90.4 90.2 MCH Latest Ref Range: 27.1 - 32.0 pg 29.7 30.3 29.9 MCHC Latest Ref Range: 31.7 - 35.0 gm/dL 33.5 33.6 33.2 RDWSD Latest Ref Range: 37.0 - 46.0 fL 40.5 41.1 40.7 RDWCV Latest Ref Range: 11.5 - 14.1 % 12.4 12.5 12.6 Platelets Unknown 33 (L) 111 (L) 84 (L) 98 MPV Latest Ref Range: 7.6 - 12.9 fL 13.0 (H) 10.9 11.4 nRBC % Auto Latest Units: % 0.0 0.0 0.0 nRBC Abs Auto Latest Ref Range: 0.000 - 0.000 x10(3)/mcL 0.000 0.000 0.000 Neutr Abs (ANC) Unknown 3.63 5.77 2.91 4.88 documented in this encounter Plan of Treatment Upcoming Encounters Date Type Department Care Team (Late st Contact Info) Description 02/22/2024 1:00 PM EDT Office Visit Hematology/Oncology at [address] [phone] Carrie Bruno MD [facility] DR HEMATOLOGY/[place] [address] Oliva Mccabe, TRAVEL PHYSICAL THERAPIST [facility] DR HEMATOLOGY/[place] [address] 09/11/2024 1:00 PM EST Office Visit Dermatology at [facility] [address] [place] [address] Lizeth Hallman MD [facility] [place] [address] documented as of this encounter Procedures Procedure Name Priority Date/Time Associated Diagnosis Comments CBC (WITH DIFF) Routine 12/05/2018 documented in this encounter Results * CBC (with Diff) (12/05/2018) WBC 7.34 Hemoglobin 14.4 Hematocrit 42.5 Platelets 98 Neutr Abs (ANC) 4.88 Blood specimen (specimen) 12/05/2018 Historical Provider HEMATOLOGY ORDERA BLES documented in this encounter Visit Diagnoses Not on filedocumented in this encounter Care Teams Tobacco Wrapping Machine Tender Relationship Specialty Start Date End Date Catracho Vernon MD [facility] [place] [address] PCP - General Family Medicine 04/21/18 documented as of this encounter
--- OUTSIDE RECORDS SUMMARY | 2024-02-21 01:30 | XMS_ITS | Encounter Summary ---
Author Organization [facility] [place] [address] Care Team Providers Care Studio Operation Engineer Name Role Phone Catracho Vernon MD Primary Care Provider [phone] Reason for Visit * Reason Onset Date Comments Questions 04/22/2020 Encounter Details Date Type Department Care Team (Late st Contact Info) Description 04/22/2020 Telephone Hematology/Oncology at [address] [phone] Bird Kohli, RN Questions Social History Tobacco Use Types Packs/Day Years Used Date Smoking Tobacco: Never Smokeless Tobacco: Never Sex and Gender Information Value Date Recorded Sex Assigned at Not on file Gender Identity Female 08/21/2020 5:05 PM EST Sexual Orientation Not on file documented as of this encounter Miscellaneous Notes * Telephone Encounter - Bird Kohli, RN - 04/22/2020 4:17 PM EDT Called and spoke with Shanita Francisco who reports she went to dentist yesterday for tooth pain. Dr Hodges gave her ABT amoxicillin 500 mg TID for 1 week. 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 She wanted to double check with us. Reviewed with Dr Bruno who reports this is fine. Called Shanita back and left message regarding this and to call if any further questions or concerns. ----- Message from Matt Manley sent at 04/22/2020 9:17 AM EDT ----- Regarding: Please call Shanita called and said that she went to the dentist and they gave her amoxicillin to take and she wants to know if this is safe. documented in this encounter Plan of Treatment Upcoming Encounters Date Type Department Care Team (Late st Contact Info) Description 02/22/2024 1:00 PM EDT Office Visit Hematology/Oncology at [address] [phone] Carrie Bruno MD [facility] DR HEMATOLOGY/[place] [address] Oliva Mccabe APRN [facility] HEMATOLOGY/[place] [address] 09/11/2024 1:00 PM EST Office Visit Dermatology at [address] [phone] Lizeth Hallman MD [facility] [place] [address] documented as of this encounter Visit Diagnoses Not on filedocumented in this encounter Care Teams Studio Operation Engineer Relationship Specialty Start Date End Date Catracho Vernon MD [facility] [place] [address] PCP - General Family Medicine 04/21/18 documented as of this encounter
--- OUTSIDE RECORDS SUMMARY | 2024-02-21 01:30 | XMS_ITS | Encounter Summary ---
Author Organization [facility] [place] [address] Care Team Providers Care Brine Tank Tender Name Role Phone Catracho Vernon MD Primary Care Provider [phone] Encounter Details Date Type Department Care Team (Late Contact Info) Description 06/13/2019 Telephone Hematology/Oncology at [address] [phone] Sherri Ramesh RN Social History Tobacco Use Types Packs/Day Years Used Date Smoking Tobacco: Never Smokeless Tobacco: Never Sex and Gender Information Value Date Recorded Sex Assigned at Not on file Gender Identity Female 08/21/2020 5:05 PM EST Sexual Orientation Not on file documented as of this encounter Miscellaneous Notes * Telephone Encounter - Sherri Collins RN - 06/13/2019 10:26 AM EST Patient calling as she received a letter from stating she has an appointment with Dr. Bruno on 07/16/2019 at [facility]. Discussed that there is no appointment for that in her chart. Patient states she would rather not have appointments if they aren't necessary. States she saw Stacey Bhatt in May, and they did not discuss this as follow up. Patient would like a call back only if appt is necessary. documented in this encounter Plan of Treatment Upcoming Encounters Date Type Department Care Team (Late Contact Info) Description 02/22/2024 1:00 PM EDT Office Visit Hematology/Oncology at [address] [phone] Carrie Bruno MD [facility] DR HEMATOLOGY/[place] [address] Oliva Mccabe, SVP RESEARCH AND STRATEGIC ANALYSIS [facility] DR HEMATOLOGY/[place] [address] 09/11/2024 1:00 PM EST Office Visit Dermatology at [facility] [address] [place] [address] [place] [phone] Lizeth Hallman MD [facility] DR DONTA [place] [address] documented as of this encounter Visit Diagnoses Not on filedocumented in this encounter Care Teams Brine Tank Tender Relationship Specialty Start Date End Date Catracho Vernon MD [address] [place] [address] [place] [address] PCP - General Family Medicine 04/21/18 documented as of this encounter
--- OUTSIDE RECORDS SUMMARY | 2024-02-21 01:30 | XMS_ITS | Encounter Summary ---
Author Organization [facility] [place] [address] Care Team Providers Care Feed Research Technician Name Role Phone Catracho Vernon MD Primary Care Provider [phone] Reason for Visit * Reason Onset Date Comments Labs Only 08/11/2020 lab tracking Encounter Details Date Type Department Care Team (Late st Contact Info) Description 08/11/2020 Telephone Hematology/Oncology at [address] [phone] Jackie Salinas RN Labs Only [...] Telephone Encounter - Jackie Salinas RN - 08/11/2020 1:44 PM EST LAB TRACKING Torrey Francisco : 1945 DIAGNOSIS: ITP LABS ORDERED: cbc diff 08/11, 08/18, 08/25 MEDICATIONS: 07/16/20-dexamethasone 40 IV day one then daily for 3 days 08/05/20-08/08/20 dexamethasone 40 mg po daily Assessment/Plan: Labs sent to Dr. Bruno to review. Labs in one week. Spoke with pt who agrees with plan. Results for WEROTORREY ( ) as of 08/11/2020 13:44 Ref. Range 07/21/2020 00:00 07/28/2020 00:00 08/04/2020 00:00 08/11/2020 00:00 WBC Unknown 9.41 6.57 5.54 9.73 RBC Unknown 4.60 Hemoglobin Unknown 14.8 14.0 14.2 15.7 Hematocrit Unknown 44.3 43.0 43.8 46.7 Platelets Unknown 163 141 41 (A) 167 Neutr Abs (ANC) Unknown 5.82 4.24 3.39 5.87 documented in this encounter Plan of Treatment Upcoming Encounters Date Type Department Care Team (Late st Contact Info) Description 02/22/2024 1:00 PM EDT Office Visit Hematology/Oncology at [address] [phone] Carrie Bruno MD [facility] DR HEMATOLOGY/[place] [address] Oliva Mccabe APRN [facility] DR HEMATOLOGY/[place] [address] 09/11/2024 1:00 PM EST Office Visit Dermatology at [address] [place] [address] Lizeth Hallman MD [facility] DR DONTA [place] [address] documented as of this encounter Procedures Procedure Name Priority Date/Time Associated Diagnosis Comments CBC (WITH DIFF) Routine 08/11/2020 documented in this encounter Results * CBC (with Diff) (08/11/2020) WBC 9.73 Hemoglobin 15.7 Hematocrit 46.7 Platelets 167 Neutr Abs (ANC) 5.87 Blood specimen (specimen) 08/11/2020 Historical Provider HEMATOLOGY ORDERA BLES documented in this encounter Visit Diagnoses Not on filedocumented in this encounter Care Teams Feed Research Technician Relationship Specialty Start Date End Date Catracho Vernon MD [address] [place] [address] PCP - General Family Medicine 04/21/18 documented as of this encounter
--- OUTSIDE RECORDS SUMMARY | 2024-02-21 01:30 | XMS_ITS | Encounter Summary ---
Author Organization [facility] Address [facility] [place] [address] Care Team Providers Care Tennis Centre Manager Name Role Phone Catracho Vernon MD Primary Care Provider [phone] Encounter Details Date Type Department Care Team (Late st Contact Info) Description 09/11/2018 10:30 AM EST Office Visit Hematology/Oncology at [address] [phone] Carrie Heredia MD [facility] DR HEMATOLOGY/[place] [address] Thrombocytopenia Social History Tobacco Use Types Packs/Day Years Used Date Smoking Tobacco: Never Smokeless Tobacco: Never Sex and Gender Information Value Date Recorded Sex Assigned at Not on file Gender Identity Female 08/21/2020 5:05 PM EST Sexual Orientation Not on file documented as of this encounter Last Filed Vital Signs Vital Sign Reading Time Taken Comments Blood Pressure 175/81 09/11/2018 10:30 AM EST Pulse 67 09/11/2018 10:30 AM EST Temperature 36 ??C (96.8 ??F) 09/11/2018 10: 30 AM EST Respiratory Rate 18 09/11/2018 10:3 0 AM EST Oxygen Saturation 100% 09/11/2018 10: 30 AM EST Inhaled Oxygen Concentration - - Weight 71.5 kg (157 lb 11.2 oz) 019 10:30 AM EST Height 160 cm (5' 2.99) 09/11/2018 10: 30 AM EST copied Body Mass Index 27.94 09/11/2018 10:30 AM EST documented in this encounter Progress Notes * Carrie Heredia MD - 09/11/2018 10:30 AM EST OUTPATIENT HEMATOLOGY/ ONCOLOGY CONSULTATION HISTORY [...] or bleeding. No fevers/ chills/ night sweat. Cold over Teresa. No unusual bleeding or bruising. Going on trip but hates to fly b/c she alwaysgets sick when she flies. Her sister has a pelvic mass which is being worked up. In October going to [place] for 8 days over [facility]. Going to on license of [facility]. 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 50th wedding anniversary is 2019! Darryl HAMILTON Has children who work in [place] - her daughter and son-in-law work for [employer] in [place]. 2 boys. 3 children total and 4 grandchildren total. Retired [employer]. FAMILY HISTORY: Mother: CAD, renal Father: dementia Sibs: 3 sisters Afib; CAD, DM Children: healthy No autoimmune disorders MEDICATIONS AND ALLERGIES- reviewed at this visit Medications 09/11/18 1035 Medication Sig Taking? TURMERIC ORAL Take 1 capsule by mouth daily. Yes omega-3 acid ethyl esters (LOVAZA) 1 gram Capsule Take 2 g by mouth 2 times daily. Yes ergocalciferol, vitamin D2, (VITAMIN D ORAL) Take 1,000 mg by mouth daily. Yes ubidecarenone (CO Q-10 ORAL) Take by mouth. Yes PAST MEDICAL HISTORY- reviewed Patient Active Problem List Diagnosis Code ??? Healthcare maintenance Z00.00 ??? Nevus D22.9 ??? Thrombocytopenia D69.6 ??? Spinal stenosis at L4-L5 level M48.061 COMPREHENSIVE REVIEW OF SYSTEMS Besides what is mentioned in the HPI, all other systems are negative PHYSICAL EXAMINATION Most Recent Vitals: 09/11/18 1030 BP: 175/81 Pulse: 67 Resp: 18 Temp: 36 ??C (96.8 ??F) SpO2: 100% NAD, pleasant Heart is RRR Lung sounds [...] neg 09/04/18 4.2 14.5 103k 0.87 nl RADIOGRAPHIC EVALUATION As above PATHOLOGY [...] stools. Plan: ?? Cbc and appt in 3 months ?? Ultimately will plan every other mo labs and less frequent appts. I discussed all of the above with the patient and all of her questions were answered. Support and counseling given as appropriate. Shanita Francisco knows that she can call us any time with questions orconcerns. This note was written or modified using [employer] voice recognition software. The final note was screened for mistakes. Please excuse any remaining errors. CARRIE HEREDIA MD documented in this encounter Plan of Treatment Upcoming Encounters Date Type Department Care Team (Late st Contact Info) Description 02/22/2024 1:00 PM EDT Office Visit Hematology/Oncology at [address] [phone] Carrie Heredia MD [facility] HEMATOLOGY/[place] [address] Oliva Mccabe APRN [facility] HEMATOLOGY/[place] [address] 09/11/2024 1:00 PM EST Office Visit Dermatology at [facility] [address] [place] [phone] Lizeth Hallman MD [facility] [address] [place] [address] documented as of this encounter Visit Diagnoses Diagnosis Thrombocytopenia Thrombocytopenia, unspecified documented in this encounter Care Teams Tennis Centre Manager Relationship Specialty Start Date End Date Catracho Vernon MD [address] [place] [address] [place] [address] PCP - General Family Medicine 04/21/18 documented as of this encounter
--- OUTSIDE RECORDS SUMMARY | 2024-02-21 01:30 | XMS_ITS | Encounter Summary ---
Author Organization [facility] Address [facility] [place] [address] Care Team Providers Care Order Picker Name Role Phone Catracho Vernon MD Primary Care Provider [phone] Reason for Visit * Reason Comments Skin Check Encounter Details Date Type Department Care Team ([facility] st Contact Info) Description 07/02/2019 1:45 PM EST Office Visit Dermatology at [address] [address] Deepika Rene MD [facility] [address] [place] [address] SK (seborrheic keratosis); Dermal nevus; Multiple benign nevi; Dermatofibroma; Lentigines; Xerosis of skin Social History Tobacco Use Types Packs/Day Years Used Date Smoking Tobacco: Never Smokeless Tobacco: Never Sex and Gender Information Value Date Recorded Sex Assigned at Not on file Gender Identity Female 08/21/2020 5:05 PM EST Sexual Orientation Not on file documented as of this encounter Progress Notes * Deepika Rene MD - 07/02/2019 1:45 PM EST DERMATOLOGY ESTABLISHED PATIENT CLINIC NOTE Date of service: 07/02/2019 Shanita Cohen Nolan : 1945 Provider: Deepika Rene MD Chief Complaint Patient presents with ??? 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 Father had Eczema, Daughter had Psoriasis ?? 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 No Pacemaker or Defibrillator? No Preferred name:??Shanita Preferred method of contact for results:??Home Phone?? OK to leave detailed message including biopsy results if applicable:??Yes Are there any other people with whom we may discuss your care with? , Feliberto Preferred Pharmacy? [facility] in [facility] Shanita Noel Francisco is a 73 y.o. year old female, established patient last seen by me on 06/29/18. Here today for a full skin examination. Patient reports a history of a brown, crusty, raised spot spot onher right lower leg that recently resolved. Denies any other skin concerns today. Also inquiries about recommendations for cream/cleanser for face and body that is good for dry skin. MEDS: Current Outpatient Medications Medication Sig Dispense Refill ??? TURMERIC ORAL Take 1 capsule by mouth daily. ??? ergocalciferol, vitamin D2, (VITAMIN D ORAL) Take 1,000 mg by mouth daily. ??? ubidecarenone (CO Q-10 ORAL) Take by mouth. No current facility-administered medications for this visit. ADR: No Known Allergies ROS General: feeling well Skin: denies other skin complaints EXAM General: NAD, pleasant, cooperative Skin: Patient was asked to undress to the level of her comfort. Verbalized that the provider's preference is for the patient to remove all clothing and that the provider will not examine areas patient elects to keep covered. Patient's decision was to remove bra and keep underwear on and have the following examined: skin of the scalp, hair, face, ears, neck, chest, breasts, abdomen, back, axillae,upper and lower extremities, hands, and feet. Patient was offered and declined examination of the buttocks and genitalia. Significant skin findings: A. Sun-exposed areas of the trunk and extremities: Scattered 0.3-0.6 cm light- brown, evenly pigmented, well-demarcated macules. B.Trunk and extremities: Brown papule/plaques with waxy stuck-on appearance. C. Right cheek: [place], fleshy papule. D. Trunk and extremities: Multiple 0.3-0.5 cm medium-brown, evenly-pigmented macules and papules. All with regular pigment pattern on dermoscopy. No pigmented lesions suspicious for melanoma. E. Left shoulder: firm papule, centrally raised and sclerotic, with peripheral hyperpigmentation and dimpling with lateral pressure. ASSESSMENT/PLAN: A. Lentigines - Discussed benign nature of lesions and provided reassurance. No treatment necessary at this time. - Discussed nature of sun-induced photo-aging and skin cancers. Advised sun avoidance, protective clothing, and use of SPF 30+ broad-spectrum sunscreens. B. Seborrheic Keratoses - Etiology discussed - Patient reassured that benign in nature C. Dermal Nevi - Discussed benign nature of lesion and provided reassurance. No treatment necessary at this time. D. Benign-Appearing Nevi - No atypical lesions or features worrisome for malignancy. - Advised patient to watch for anything new or changing. Discussed changes (bleeding, pain, change in color or shape) that should prompt re-evaluation.?? - Will continue to monitor. - Provided Skin Cancer educational brochure E. Dermatofibroma - Discussed benign nature of lesion and provided reassurance. No treatment necessary. F. H/O Xerosis of Skin - Recommend CerAve cream for body, CerAve AM/PM for face and CerAve non-soap cleanser FOLLOW-UP: RTC in 1 year for follow-up and full skin exam, or sooner if needed. Reminder placed in the system to schedule. Patient instructed to call with any questions or concerns. I am documenting this encounter acting as the scribe for and in the presence of Dr. Rene: WENDIE OWENS LPN and Leny Salazar I performed the above scribed service and agree with the accuracy of the documentation in this encounter. Deepika Rene MD [facility], Department of Surgery [facility] documented in this encounter Plan of Treatment Upcoming Encounters Date Type Department Care Team (Late st Contact Info) Description 02/22/2024 1:00 PM EDT Office Visit Hematology/Oncology at [address] [phone] Carrie Bruno MD [facility] DR HEMATOLOGY/[place] [address] Oliva Mccabe, PLATING DEPARTMENT HELPER [facility] DR HEMATOLOGY/[place] [address] 09/11/2024 1:00 PM EST Office Visit Dermatology at [facility] [address] [place] [phone] Lizeth Hallman MD [facility] [address] [place] [address] documented as of this encounter Visit Diagnoses Diagnosis SK (seborrheic keratosis) Other seborrheic keratosis Dermal nevus Benign neoplasm of skin, site unspecified Multiple benign nevi Benign neoplasm of skin, site unspecified Dermatofibroma Benign neoplasm of skin, site unspecified Lentigines Other dyschromia Xerosis of skin Other specified disease of sebaceous glands documented in this encounter Care Teams Order Picker Relationship Specialty Start Date End Date Catracho Vernon MD [address] [place] [address] PCP - General Family Medicine 04/21/18 documented as of this encounter
--- OUTSIDE RECORDS SUMMARY | 2024-02-21 01:30 | XMS_ITS | Encounter Summary ---
Author Organization [facility] Address [facility] [place] [address] Care Team Providers Care Field Investigator Name Role Phone Catracho Vernon MD Primary Care Provider [phone] Encounter Details Date Type Department Care Team (Late st Contact Info) Description 05/30/2019 11:30 AM EDT Office Visit Hematology/Oncology at [address] [address] Carrie Bruno MD [facility] DR HEMATOLOGY/[place] [address] Stacey Bhatt APRN [facility] DR HEMATOLOGY/[place] [address] Thrombocytopenia Social History Tobacco Use Types Packs/Day Years Used Date Smoking Tobacco: Never Smokeless Tobacco: Never Sex and Gender Information Value Date Recorded Sex Assigned at Not on file Gender Identity Female 08/21/2020 5:05 PM EST Sexual Orientation Not on file documented as of this encounter Last Filed Vital Signs Vital Sign Reading Time Taken Comments Blood Pressure 146/73 05/30/2019 11:41 AM EDT Pulse 68 05/30/2019 11:41 AM EDT Temperature 36.8 ??C (98.2 ??F) 05/30/2019 11:41 AM E DT Respiratory Rate 18 05/30/2019 11:41 AM EDT Oxygen Saturation 98% 05/30/2019 11:41 AM EDT Inhaled Oxygen Concentration - - Weight 72.3 kg (159 lb 6.4 oz) 05/30/2019 11:41 AM EDT Height - - Body Mass Index 28.24 12/06/2018 9:39 AM EDT documented in this encounter Progress Notes * Stacey Bhatt, BONDERIZER OPERATOR - 05/30/2019 11:30 AM EDT Subjective: Patient ID: Shanita Francisco is a 73 y.o. female here for f/u of ITP Patient Active Problem List Diagnosis ??? Spinal stenosis at L4-L5 level ??? 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 Nevus ??? Healthcare maintenance HPI Shanita is doing well. She did have a URI a few weeks ago. At the same time she did have some bruiseson her inner leg after doing some cycling. She appropriately called in to get a platelet check and it was 125K. She has otherwise been doing well. Some chronic back and knee pain. 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 She ahs no other unusual bleeding or bruising. Review of Systems Constitutional: Negative. HENT: Negative. Eyes: Negative. Respiratory: Negative. Negative for cough and shortness of breath. Cardiovascular: Negative. Negative for chest pain, palpitations and leg swelling. Gastrointestinal: Negative. Negative for constipation, diarrhea, nausea and vomiting. Genitourinary: Negative. Musculoskeletal: Negative. Skin: Negative. Neurological: Negative. Negative for weakness and numbness. Hematological: Negative. Psychiatric/Behavioral: Negative. Objective: Physical Exam Constitutional: She is oriented to person, place, and time. She appears well- developed and well-nourished. Eyes: Conjunctivae are normal. Pulmonary/Chest: Effort normal. Neurological: She is alert and oriented to person, place, and time. Skin: Skin is warm and dry. Psychiatric: She has a normal mood and affect. Recent Results (from the past 72 hour(s)) CBC (with Diff) Result Value Ref Range WBC 4.51 Hemoglobin 14.6 Hematocrit 43.5 Platelets 124 Neutr Abs (ANC) 2.45 Comprehensive metabolic panel (non-fasting) Result Value Ref Range BUN 20 Creatinine 0.88 BP 146/73 (Patient Position: Sitting) Pulse 68 Temp 36.8 ??C (98.2 ??F) (Oral) Resp 18 Wt 72.3 kg (159 lb 6.4 oz) SpO2 98% BMI 28.24 kg/m?? Assessment and Plan: Ms Francisco is a delightful 73 yo female who in retrospect probably had [...] 100,000. This seems to be her baseline. I do not think Shanita needs more treatment at this time. I expect her to be thrombocytopenic, but will only need treatment if plts <30. I would recommend checking a CBC if she develops unusual bruisingor bleeding. She will call for mucosal bleeding, bruising, dark stools. Shanita understands the reasons to call and has proved that she can be adherant to this plan. We will continue to monitor prospectively in hematology clinic. Shanita Francisco will return to clinic in . she will call before then if any concerns or changes in status. ?? documented in this encounter Plan of Treatment Upcoming Encounters Date Type Department Care Team (Late st Contact Info) Description 02/22/2024 1:00 PM EDT Office Visit Hematology/Oncology at [address] [address] Carrie Bruno MD [facility] HEMATOLOGY/[place] [address] Oliva Mccabe APRN [facility] HEMATOLOGY/[place] [address] 09/11/2024 1:00 PM EST Office Visit Dermatology at [facility] [address] [place] [address] Lizeth Hallman MD [facility] [place] [address] documented as of this encounter Procedures Procedure Name Priority Date/Time Associated Diagnosis Comments CBC (WITH DIFF) Routine 05/28/2019 COMPREHENSIVE METABOLIC PANEL (NON-FASTING) Routine 05/28/2019 documented in this encounter Results * Comprehensive metabolic panel (non-fasting) (05/28/2019) BUN 20 Creatinine 0.88 Blood specimen (specimen) 05/28/2019 Stacey Bhatt APRN CHEMISTRY ORDERABLES * CBC (with Diff) (05/28/2019) WBC 4.51 Hemoglobin 14.6 Hematocrit 43.5 Platelets 124 Neutr Abs (ANC) 2.45 Blood specimen (specimen) 05/28/2019 Stacey Bhatt APRN HEMATOLOGY ORDERABLE S documented in this encounter Visit Diagnoses Diagnosis Thrombocytopenia Thrombocytopenia, unspecified documented in this encounter Care Teams Field Investigator Relationship Specialty Start Date End Date Catracho Vernon MD [address] [place] [address] PCP - General Family Medicine 04/21/18 documented as of this encounter
--- OUTSIDE RECORDS SUMMARY | 2024-02-21 01:30 | XMS_ITS | Encounter Summary ---
Author Organization [facility] [place] [address] Care Team Providers Care Activities Coordinator Name Role Phone Catracho Vernon MD Primary Care Provider [phone] Reason for Visit * Reason Onset Date Comments Labs Only 03/08/2019 Lab Tracking Encounter Details Date Type Department Care Team (Late st Contact Info) Description 03/08/2019 Telephone Hematology/Oncology at [address] [phone] Bird Kohli, RN Labs Only (Lab Tracking) Social History Tobacco Use Types Packs/Day Years Used Date Smoking Tobacco: Never Smokeless Tobacco: Never Sex and Gender Information Value Date Recorded Sex Assigned at Not on file Gender Identity Female 08/21/2020 5:05 PM EST Sexual Orientation Not on file documented as of this encounter Miscellaneous Notes * Telephone Encounter - Bird Kohli RN - 03/08/2019 1:04 PM EDT LAB TRACKING Torrey Conteh [id number] DIAGNOSIS: Thrombocytopenia LABS ORDERED: cbc diff MEDICATIONS: none Assessment/Plan: Labs sent to Dr Bruno for review. No change in current POC. Pt called and happyto hear results. She knows she will have FUV first week of Nov with CBC and CMP prior. Results for TORREY CONTEH ( ) as of 03/08/2019 13:04 Ref. Range 04/28/2018 08:34 05/12/2018 11:03 12/05/2018 00:00 03/08/2019 00:00 WBC Unknown 9.0 4.6 7.34 5.27 RBC Latest Ref Range: 4.00 - 5.21 x10(6)/mcL 4.91 4.68 Hemoglobin Unknown 14.9 14.0 14.4 14.1 Hematocrit Unknown 44.4 42.2 42.5 41.4 MCV Latest Ref Range: 82.6 - 94.4 fL 90.4 90.2 MCH Latest Ref Range: 27.1 - 32.0 pg 30.3 29.9 MCHC Latest Ref Range: 31.7 - 35.0 gm/dL 33.6 33.2 RDWSD Latest Ref Range: 37.0 - 46.0 fL 41.1 40.7 RDWCV Latest Ref Range: 11.5 - 14.1 % 12.5 12.6 Platelets Unknown 111 (L) 84 (L) 98 97 MPV Latest Ref Range: 7.6 - 12.9 fL 10.9 11.4 nRBC % Auto Latest Units: % 0.0 0.0 nRBC Abs Auto Latest Ref Range: 0.000 - 0.000 x10(3)/mcL 0.000 0.000 Neutr Abs (ANC) Unknown 5.77 2.91 4.88 3.10 Neutrophils % Latest Units: % 63.9 63.5 Immature Gran % Latest Units: % 0.90 0.20 Lymphocytes % Latest Units: % 25.2 24.5 Monocytes % Latest Units: % 8.9 9.2 Eosinophils % Latest Units: % 1.0 1.3 Basophils % Latest Units: % 0.1 1.3 Mackenzie Gran Abs Latest Ref Range: 0.00 - 0.04 x10(3)/mcL 0.08 (H) 0.01 Lymphocytes Abs Latest Ref Range: 0.9 - 3.2 x10(3)/mcL 2.3 1.1 Monocyte Abs Latest Ref Range: 0.3 - 0.9 x10(3)/mcL 0.8 0.4 Eosinophils Abs Latest Ref Range: 0.0 - 0.4 x10(3)/mcL 0.1 0.1 Basophils Abs Latest Ref Range: 0.0 - 0.1 x10(3)/mcL 0.0 0.1 documented in this encounter Plan of Treatment Upcoming Encounters Date Type Department Care Team (Late st Contact Info) Description 02/22/2024 1:00 PM EDT Office Visit Hematology/Oncology at [address] [address] Carrie Bruno MD [facility] DR HEMATOLOGY/[place] [address] Oliva Mccabe APRN [facility] HEMATOLOGY/[place] [address] 09/11/2024 1:00 PM EST Office Visit Dermatology at [facility] [address] [place] [phone] Lizeth Hallman MD [facility] [place] [address] documented as of this encounter Procedures Procedure Name Priority Date/Time Associated Diagnosis Comments CBC (WITH DIFF) Routine 03/08/2019 documented in this encounter Results * CBC (with Diff) (03/08/2019) WBC 5.27 Hemoglobin 14.1 Hematocrit 41.4 Platelets 97 Neutr Abs (ANC) 3.10 Blood specimen (specimen) 03/08/2019 Carrie Bruno MD HEMATOLOGY ORDER JAMIE documented in this encounter Visit Diagnoses Not on filedocumented in this encounter Care Teams Activities Coordinator Relationship Specialty Start Date End Date Catracho Vernon MD [address] [place] [address] [place] [address] PCP - General Family Medicine 04/21/18 documented as of this encounter
--- OUTSIDE RECORDS SUMMARY | 2024-02-21 01:30 | XMS_ITS | Encounter Summary ---
Author Organization [facility] [place] [address] Care Team Providers Care Stringer Machine Tender Name Role Phone Catracho Vernon MD Primary Care Provider [phone] Reason for Visit * Reason Onset Date Comments Other 08/14/2020 covid shot Encounter Details Date Type Department Care Team (Late Contact Info) Description 08/14/2020 Telephone Hematology/Oncology at [address] [phone] Jackie Salinas RN Other (covid shot) Social History Tobacco Use Types Packs/Day Years Used Date Smoking Tobacco: Never Smokeless Tobacco: Never Sex and Gender Information Value Date Recorded Sex Assigned at Not on file Gender Identity Female 08/21/2020 5:05 PM EST Sexual Orientation Not on file documented as of this encounter Miscellaneous Notes * Telephone Encounter - Jackie Salinas RN - 08/14/2020 1:56 PM EST Shanita calls and states she was called by [facility] for her to get covid vaccine(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 She must get on Tuesday at 930am which she has agreed to . She will get second shot on . Dr. Bruno updated via this note. documented in this encounter Plan of Treatment Upcoming Encounters Date Type Department Care Team (Late Contact Info) Description 02/22/2024 1:00 PM EDT Office Visit Hematology/Oncology at [address] [phone] Carrie Bruno MD [facility] DR HEMATOLOGY/[place] [address] Oliva Mccabe, HOTEL CONTROLLER [facility] DR HEMATOLOGY/[place] [address] 09/11/2024 1:00 PM EST Office Visit Dermatology at [facility] [address] [place] [place] [phone] Lizeth Hallman MD [facility] DR [address] [place] [address] documented as of this encounter Visit Diagnoses Not on filedocumented in this encounter Care Teams Stringer Machine Tender Relationship Specialty Start Date End Date Catracho Vernon MD [address] [place], [place] [address] [place] [address] PCP - General Family Medicine 04/21/18 documented as of this encounter
--- OUTSIDE RECORDS SUMMARY | 2024-02-21 01:30 | XMS_ITS | Encounter Summary ---
Author Organization [facility] Address [facility] [place] [address] Care Team Providers Care Behavioral Services Tech Name Role Phone Catracho Vernon MD Primary Care Provider [phone] Encounter Details Date Type Department Care Team (Late st Contact Info) Description 10/08/2020 1:00 PM EST TH Visit (TeleHealth) Hematology/Oncology at [address] [phone] Carrie Heredia MD [facility] DR HEMATOLOGY/[place] [address] Acute ITP; Thrombocytopenia Social History Tobacco Use Types Packs/Day Years Used Date Smoking Tobacco: Never Smokeless Tobacco: Never Sex and Gender Information Value Date Recorded Sex Assigned at Not on file Gender Identity Female 08/21/2020 5:05 PM EST Sexual Orientation Not on file documented as of this encounter Progress Notes * Carrie Heredia MD - 10/08/2020 1:00 PM EST OUTPATIENT HEMATOLOGY/ ONCOLOGY CONSULTATION I confirmed with the patient that this was a telephone encounter in lieu of an office visit. Charges may be incurred. Patient agreed and gave me permission to proceed. HISTORY PRESENT ILLNESS This patient is a [...] dexamethasone 40 mg x 4 days. However platelets usually drop after about 3 to 4 weeks.. No bleeding or bruising. The patient is now received her second Covid vaccination w/o sig SFX or drop in platelets. Torrey continues to express that she wants to avoid meds as much as possible. She has not received rituxan or IVIG to date; only dexamethasone. Dex affects her bowels and overall sx and takes week or more to feel Normal again. 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 50th wedding anniversary in 2019! Rare ALFONSO Has children who work in [place] - her daughter and son-in-law work for [employer] in [place]. 2 boys. 3 children total and 4 grandchildren total. Retired [employer]. FAMILY HISTORY: Mother: CAD, renal Father: dementia Sibs: 3 sisters Afib; CAD, DM Children: healthy No autoimmune disorders MEDICATIONS AND ALLERGIES- reviewed at this visit Medications 09/17/20 0943 Medication Sig Taking? magnesium oxide 400 mg magnesium Tablet Take by mouth. dexamethasone (Decadron) 4 mg Tablet Dex 40mg daily X 4 days and repeat q 3 weeks TURMERIC ORAL Take 1 capsule by mouth [...] or weight on file to calculate BSA. Telephone encounter LABORATORY EVALUATION No results found for this or any previous visit (from the past 24 hour(s)). Results for TORREY CONTEH ( ) as of 10/09/2020 23:12 Ref. Range 09/15/2020 00:00 09/17/2020 00:00 09/22/2020 00:00 09/29/2020 00:00 10/06/2020 00:00 WBC Unknown 5.77 5.08 3.89 4.88 5.1 Hemoglobin Unknown 13.5 13.1 13.5 13.8 14.1 Hematocrit Unknown 41.2 39.9 41.5 42.4 43.0 Platelets Unknown 91 88 155 150 129 Neutr Abs (ANC) Unknown 3.53 3.03 2.07 2.72 3 07/28/20 Hep B and Hep C negative [...] either a couple times in the past. If plt fall we can rescue her [...] The cyclosporine combinations are more challenging in [facility] as we cannot getlevels easily. Torrey reports that for a week after each Dex she feels like I am in a different world unstable onher feet, and lightheaded. Dizzy. She asked about weaning the dexamethasone which would be fine. I am going to have her take 40 mg x 4 days then wean her 12, 8, 4 mg and see if that helps her. ?? Ref: Journal of Hematology 2013 Florentino-Jacque. For now, I agree with continued weekly CBC and close watchful waiting. Plan: ?? In person visit in 6 weeks or sooner in person if platelets decrease ?? Avoid dex and rituxan immediately before or after her COVID vaccine (will use IVIG if necessary during this time frame) ?? CBC mondays with RN tracking ?? IVIG 1 g/kg/day x 2 days for plt less than 50k and fu appt. ?? Rituxan 100mg weekly [...] COVID vaccine X 2 completed mid Sep I discussed all of the above with the patient and all of her questions were answered. Support and counseling given as appropriate. Torrey Conteh knows that she can call us any time with questions orconcerns. This note was written or modified using [employer] voice recognition software. The final note was screened for mistakes. Please excuse any remaining errors. I spent 20 min on this telehealth encounter including chart review, time with the patient and documentation. CARRIE HEREDIA MD documented in this encounter Plan of Treatment Upcoming Encounters Date Type Department Care Team (Late st Contact Info) Description 02/22/2024 1:00 PM EDT Office Visit Hematology/Oncology at [address] [phone] Carrie Heredia MD [facility] DR HEMATOLOGY/[place] [address] Oliva Mccabe APRN [facility] DR HEMATOLOGY/[place] [address] 09/11/2024 1:00 PM EST Office Visit Dermatology at [facility] [address] [place] [address] Lizeth Hallman MD [facility] [address] [place] [address] documented as of this encounter Visit Diagnoses Diagnosis Acute ITP Immune thrombocytopenic purpura Thrombocytopenia Thrombocytopenia, unspecified documented in this encounter Care Teams Behavioral Services Tech Relationship Specialty Start Date End Date Catracho Vernon MD [address] [place] [address] PCP - General Family Medicine 04/21/18 documented as of this encounter
--- OUTSIDE RECORDS SUMMARY | 2024-02-21 01:30 | XMS_ITS | Encounter Summary ---
Author Organization [facility] Address [facility] [place] [address] Care Team Providers Care Erosion Control Specialist Name Role Phone Catracho [place] MD Primary Care Provider [phone] Encounter Details Date Type Department Care Team (Late st Contact Info) Description 12/19/2019 9:00 AM EDT TH Visit (TeleHealth) Hematology/Oncology at [address] [phone] Carrie Heredia MD [facility] DR HEMATOLOGY/[place] [address] Stacey Bhatt APRN [facility] DR HEMATOLOGY/[place] [address] Thrombocytopenia Social History Tobacco Use Types Packs/Day Years Used Date Smoking Tobacco: Never Smokeless Tobacco: Never Sex and Gender Information Value Date Recorded Sex Assigned at Not on file Gender Identity Female 08/21/2020 5:05 PM EST Sexual Orientation Not on file documented as of this encounter Progress Notes * Carrie Heredia MD - 12/19/2019 9:00 AM EDT OUTPATIENT HEMATOLOGY/ ONCOLOGY CONSULTATION I confirmed with the patient that this was a telephone encounter in lieu of an office visit. Charges may be incurred. Patient agreed and gave me permission to proceed. HISTORY PRESENT ILLNESS This patient is a 74 y.o. female presenting for evaluation of thrombocytopenia, [...] Plts ?? 2014- ?? 2017- ?? ~06/01- ? 09/2017- ?? 04/21/2018- 31 - given dex 40mg [...] chills/ night sweat. No illnesses or viruses. Torrey is appropriately sheltering in and following perez virus epidemic precautions. She has gained weight which she does not like. 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 50th wedding anniversary is 2019! Rare ALFONSO Has children who work in [place] - her daughter and son-in-law work for [employer] in [place]. 2 boys. 3 children total and 4 grandchildren total. 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 FAMILY HISTORY: Mother: CAD, renal Father: dementia Sibs: 3 sisters Afib; CAD, DM Children: healthy No autoimmune disorders MEDICATIONS AND ALLERGIES- reviewed at this visit Medications 07/02/19 1341 Medication Sig Taking? TURMERIC ORAL Take 1 [...] all other systems are negative PHYSICAL EXAMINATION There were no vitals taken for this visit. Telephone encounter LABORATORY EVALUATION No results found for this or any previous visit (from the past 24 hour(s)). Results for TORREY CONTEH ( ) as of 12/19/2019 09:06 Ref. Range 05/08/2019 00:00 05/28/2019 00:00 12/13/2019 00:00 WBC Unknown 8.27 4.51 4.65 Hemoglobin Unknown 14.5 14.6 14.5 Hematocrit Unknown 43.0 43.5 43.5 Platelets Unknown 127 124 122 Neutr Abs (ANC) Unknown 5.48 2.45 2.49 BUN Unknown 20 Creatinine Unknown 0.88 0.95 Calcium Unknown 10.2 Albumin Unknown 4.1 Date wbc hgb plt creat lfh 05/29/18 3.9 14.0 74k Hep C, HIV neg 09/04/18 4.2 14.5 103k 0.87 nl 12/05/18 734 14.4 98k 0.87 nl RADIOGRAPHIC EVALUATION As above PATHOLOGY EVALUATION As above ASSESSMENT: Torrey Conteh is a 74 y.o. female whom I follow for thrombocytopenia. [...] good response. Ms Conteh is a delightful 74 y.o. 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 Dr. Didier Jade treated her with dexamethasone 40 mg x 4 days in April2018. She had a nice response with her platelet count rebounding over 100,000. She is now settled down, as he suspected she would, to a platelet count between 100,000- 120,000. This seems to be her baseline. We will continue to follow her every few months with labs only to keep an eye on her. I would like to see her back in about 6 months with CBC only. If plt remain stable we may be able to extend to annual f/u. She will call for mucosal bleeding, bruising, dark stools. Torrey understands the reasons to call. Plan: ?? Cbc and appt in 6 months I spent 15 min on this telehealth encounter including chart review, time with the patient and documentation. I discussed all of the above with the patient and all of her questions were answered. Support and counseling given as appropriate. Torrey Conteh knows that she can call us any time with questions orconcerns. This note was written or modified using [employer] voice recognition software. The final note was screened for mistakes. Please excuse any remaining errors. CARRIE HEREDIA MD documented in this encounter Plan of Treatment Upcoming Encounters Date Type Department Care Team (Late st Contact Info) Description 02/22/2024 1:00 PM EDT Office Visit Hematology/Oncology at [address] [phone] Carrie Heredia MD [facility] HEMATOLOGY/[place] [address] Oliva Mccabe APRN [facility] HEMATOLOGY/[place] [address] 09/11/2024 1:00 PM EST Office Visit Dermatology at [facility] [address] [place] [address] Lizeth Hallman MD [facility] [address] [place] [address] documented as of this encounter Procedures Procedure Name Priority Date/Time Associated Diagnosis Comments CBC (WITH DIFF) Routine 12/13/2019 documented in this encounter Results * CBC (with Diff) (12/13/2019) WBC 4.65 Hemoglobin 14.5 Hematocrit 43.5 Platelets 122 Neutr Abs (ANC) 2.49 Creatinine 0.95 Calcium 10.2 Albumin 4.1 Blood specimen (specimen) 12/13/2019 Historical Provider HEMATOLOGY ORDERA BLES documented in this encounter Visit Diagnoses Diagnosis Thrombocytopenia Thrombocytopenia, unspecified documented in this encounter Care Teams Erosion Control Specialist Relationship Specialty Start Date End Date Catracho [place] MD [address] [place] [address] PCP - General Family Medicine 04/21/18 documented as of this encounter
--- OUTSIDE RECORDS SUMMARY | 2024-02-21 01:30 | XMS_ITS | Encounter Summary ---
Author Organization [facility] [place] [address] Care Team Providers Care Order Fulfillment Specialist Name Role Phone Catracho [place] MD Primary Care Provider [phone] Reason for Visit * Reason Onset Date Comments Labs Only 08/25/2020 lab tracking Encounter Details Date Type Department Care Team (Late st Contact Info) Description 08/25/2020 Telephone Hematology/Oncology at [address] [phone] Jackie Salinas RN Labs Only [...] Telephone Encounter - Jackie Salinas RN - 08/25/2020 10:45 AM EST LAB TRACKING Torrey Francisco : 1945 DIAGNOSIS: ITP LABS ORDERED: cbc diff 08/11, 08/18, 08/25 MEDICATIONS: 07/16/20-dexamethasone 40 IV day one then daily for 3 days 08/05/20-08/08/20 dexamethasone 40 mg po daily Assessment/Plan: Labs sent to Dr. Bruno to review. No changes at present. Will talk with pt about next step wed. Results for WERO TORREY Cohen ( ) as of 08/25/2020 10:45 Ref. Range 07/28/2020 00:00 08/04/2020 00:00 08/11/2020 00:00 08/18/2020 00:00 08/25/2020 00:00 WBC Unknown 6.57 5.54 9.73 7.25 5.19 RBC Unknown 4.60 Hemoglobin Unknown 14.0 14.2 15.7 13.8 13.6 Hematocrit Unknown 43.0 43.8 46.7 42.3 41.2 Platelets Unknown 141 41 (A) 167 123 86 Neutr Abs (ANC) Unknown 4.24 3.39 5.87 5.16 3.09 documented in this encounter Plan of Treatment Upcoming Encounters Date Type Department Care Team (Late st Contact Info) Description 02/22/2024 1:00 PM EDT Office Visit Hematology/Oncology at [address] [phone] Carrie Bruno MD [facility] DR HEMATOLOGY/[place] [address] Oliva Mccabe APRN [facility] DR HEMATOLOGY/[place] [address] 09/11/2024 1:00 PM EST Office Visit Dermatology at [facility] [address] [place] [address] Lizeth Hallman MD [facility] DR DON[place] [address] documented as of this encounter Procedures Procedure Name Priority Date/Time Associated Diagnosis Comments CBC (WITH DIFF) Routine 08/25/2020 documented in this encounter Results * CBC (with Diff) (08/25/2020) WBC 5.19 Hemoglobin 13.6 Hematocrit 41.2 Platelets 86 Neutr Abs (ANC) 3.09 Blood 08/25/2020 Historical Provider HEMATOLOGY ORDERA BLES documented in this encounter Visit Diagnoses Not on filedocumented in this encounter Care Teams Order Fulfillment Specialist Relationship Specialty Start Date End Date Catracho [place] MD [address] [place] [address] PCP - General Family Medicine 04/21/18 documented as of this encounter
--- OUTSIDE RECORDS SUMMARY | 2024-02-21 01:30 | XMS_ITS | Encounter Summary ---
Author Organization [facility] [place] [address] Care Team Providers Care Art Department Head Name Role Phone Catracho [place] MD Primary Care Provider [phone] Encounter Details Date Type Department Care Team (Late st Contact Info) Description 07/17/2020 Telephone Hematology/Oncology at [address] [phone] Jackie Slainas RN Social History Tobacco Use Types Packs/Day Years Used Date Smoking Tobacco: Never Smokeless Tobacco: Never Sex and Gender Information Value Date Recorded Sex Assigned at Not on file Gender Identity Female 08/21/2020 5:05 PM EST Sexual Orientation Not on file documented as of this encounter Miscellaneous Notes * Telephone Encounter - Jackie Salinas RN - 07/17/2020 3:24 PM EST LAB TRACKING Torrey conteh DIAGNOSIS: ITP LABS ORDERED: cbc diff 07/17 and 07/21 MEDICATIONS: dexamethasone 40 IV day one then daily for 3 days Assessment/Plan: Labs sent to Dr. Bruno to review. So IVIG tomorrow, pt will continue dexamethasone 40 mg tomorrow and Tuesday. Labs again 07/21/20. Pt agrees with plan. Results for TORREY CONTEH ( ) as of 07/17/2020 15:46 Ref. Range 05/28/2019 00:00 12/13/2019 00:00 07/11/2020 00:00 07/16/2020 00:00 07/17/2020 00:00 WBC Unknown 4.51 4.65 7.45 5.72 18.58 Hemoglobin Unknown 14.6 14.5 13.9 14.6 14.6 Hematocrit Unknown 43.5 43.5 42.7 44.8 43.0 Platelets Unknown 124 122 16 15 50 Neutr Abs (ANC) Unknown 2.45 2.49 4.68 3.57 17.3 documented in this encounter Plan of Treatment Upcoming Encounters Date Type Department Care Team (Late st Contact Info) Description 02/22/2024 1:00 PM EDT Office Visit Hematology/Oncology at [address] [phone] Carrie Bruno MD [facility] DR HEMATOLOGY/[place] [address] Oliva Mccabe APRN [facility] DR HEMATOLOGY/[place] [address] 09/11/2024 1:00 PM EST Office Visit Dermatology at [address] [place] [phone] Lizeth Hallman MD [facility] DR DONTA [place] [address] documented as of this encounter Procedures Procedure Name Priority Date/Time Associated Diagnosis Comments CBC (WITH DIFF) Routine 07/17/2020 documented in this encounter Results * CBC (with Diff) (07/17/2020) WBC 18.58 Hemoglobin 14.6 Hematocrit 43.0 Platelets 50 Neutr Abs (ANC) 17.3 Blood specimen (specimen) 07/17/2020 Historical Provider HEMATOLOGY ORDERA BLES documented in this encounter Visit Diagnoses Not on filedocumented in this encounter Care Teams Art Department Head Relationship Specialty Start Date End Date Catracho [place] MD [address] [place] [address] PCP - General Family Medicine 04/21/18 documented as of this encounter
--- OUTSIDE RECORDS SUMMARY | 2024-02-21 01:30 | XMS_ITS | Encounter Summary ---
Author Organization [facility] [place] [address] Care Team Providers Care Mix Chemist Name Role Phone Catracho [place] MD Primary Care Provider [phone] Reason for Visit * Reason Onset Date Comments Other 08/21/2020 loose stools Encounter Details Date Type Department Care Team (Late Contact Info) Description 08/21/2020 Telephone Hematology/Oncology at [address] [phone] Jackie Salinas RN Other (loose stools) Social History Tobacco Use Types Packs/Day Years Used Date Smoking Tobacco: Never Smokeless Tobacco: Never Sex and Gender Information Value Date Recorded Sex Assigned at Not on file Gender Identity Female 08/21/2020 5:05 PM EST Sexual Orientation Not on file documented as of this encounter Miscellaneous Notes * Telephone Encounter - Jackie Salinas RN - 08/21/2020 11:40 AM EST Pt calls and states she has been having loose stools for last two weeks, also noted rosacea on her face for two weeks. She is wondering if this is from dexamethasone which finished two weeks ago. Reviewed with Dr. Bruno and she does not feel from dex , would like pt to follow up with her PCP. Ptagrees. documented in this encounter Plan of Treatment Upcoming Encounters Date Type Department Care Team (Late Contact Info) Description 02/22/2024 1:00 PM EDT Office Visit Hematology/Oncology at [address] [phone] Carrie Bruno MD [facility] DR HEMATOLOGY/[place] [address] Oliva Mccabe, TORTILLA MAKER [facility] DR HEMATOLOGY/[place] [address] 09/11/2024 1:00 PM EST Office Visit Dermatology at [facility] [address] [place] [phone] Lizeth Hallman MD [facility] DR DON[place] [address] documented as of this encounter Visit Diagnoses Not on filedocumented in this encounter Care Teams Mix Chemist Relationship Specialty Start Date End Date Catracho Vernon MD [address] [place], [place] [address] [place] [address] PCP - General Family Medicine 04/21/18 documented as of this encounter
--- OUTSIDE RECORDS SUMMARY | 2024-02-21 01:30 | XMS_ITS | Encounter Summary ---
Author Organization [facility] [place] [address] Care Team Providers Care Transitional Kindergarten Teacher Name Role Phone Catracho [place] MD Primary Care Provider [phone] Reason for Visit * Reason Onset Date Comments Labs Only 09/15/2020 lab tracking Encounter Details Date Type Department Care Team (Late st Contact Info) Description 09/15/2020 Telephone Hematology/Oncology at [address] [phone] Jackie Salinas RN Labs Only (lab tracking) Social History Tobacco Use Types Packs/Day Years Used Date Smoking Tobacco: Never Smokeless Tobacco: Never Sex and Gender Information Value Date Recorded Sex Assigned at Not on file Gender Identity Female 08/21/2020 5:05 PM EST Sexual Orientation Not on file documented as of this encounter Miscellaneous Notes * Telephone Encounter - Jackie Salinas RN - 09/15/2020 1:14 PM EST LAB TRACKING Torrey Conteh : 1945 DIAGNOSIS: ITP LABS ORDERED: cbc diff mondays MEDICATIONS: 07/16/20-dexamethasone 40 IV day one then daily for 3 days 08/05/20-08/08/20 dexamethasone 40 mg po daily Assessment/Plan: Labs sent to Dr. Bruno to review. Dr. Bruno due to see pt wed. 09/17/20. Pt had second covid shot today. Results for TORREY CONTEH ( ) as of 09/15/2020 13:15 Ref. Range 08/25/2020 00:00 09/01/2020 00:00 09/08/2020 00:00 09/15/2020 00:00 WBC Unknown 5.19 9.12 6.62 5.77 Hemoglobin Unknown 13.6 14.2 13.9 13.5 Hematocrit Unknown 41.2 42.9 42.3 41.2 Platelets Unknown 86 198 159 91 Neutr Abs (ANC) Unknown 3.09 7.73 4.12 3.53 documented in this encounter Plan of Treatment Upcoming Encounters Date Type Department Care Team (Late st Contact Info) Description 02/22/2024 1:00 PM EDT Office Visit Hematology/Oncology at [address] [phone] [facility] [address] HEMATOLOGY/[place] [address] [facility] [address] HEMATOLOGY/[place] [address] 09/11/2024 1:00 PM EST Office Visit Dermatology at [address] [address] [facility] [address] DONTA [place] [address] documented as of this encounter Procedures Procedure Name Priority Date/Time Associated Diagnosis Comments CBC (WITH DIFF) Routine 09/15/2020 documented in this encounter Results * CBC (with Diff) (09/15/2020) WBC 5.77 Hemoglobin 13.5 Hematocrit 41.2 Platelets 91 Neutr Abs (ANC) 3.53 Blood 09/15/2020 Historical Provider HEMATOLOGY ORDERA BLES documented in this encounter Visit Diagnoses Not on filedocumented in this encounter Care Teams Transitional Kindergarten Teacher Relationship Specialty Start Date End Date Catracho Vernon MD [address] [place] [address] PCP - General Family Medicine 04/21/18 documented as of this encounter
--- OUTSIDE RECORDS SUMMARY | 2024-02-21 01:30 | XMS_ITS | Encounter Summary ---
Author Organization [facility] [place] [address] Care Team Providers Care Electric Brain Wave Equipment Mechanic Name Role Phone Catracho Vernon MD Primary Care Provider [phone] Reason for Visit * Reason Onset Date Comments Labs Only 08/18/2020 lab tracking Encounter Details Date Type Department Care Team (Late st Contact Info) Description 08/18/2020 Telephone Hematology/Oncology at [address] [phone] Jackie Salinas RN Labs Only [...] Telephone Encounter - Jackie Salinas RN - 08/18/2020 12:19 PM EST LAB TRACKING Torrey Conteh : 1945 DIAGNOSIS: ITP LABS ORDERED: cbc diff 08/11, 08/18, 08/25 MEDICATIONS: 07/16/20-dexamethasone 40 IV day one then daily for 3 days 08/05/20-08/08/20 dexamethasone 40 mg po daily Assessment/Plan: Labs sent to Dr. Bruno to review. Pt getting first covid shot today. Labs againin a week, pt agrees with plan. Results for TORREY CONTEH ( ) as of 08/18/2020 12:18 Ref. Range 07/21/2020 00:00 07/28/2020 00:00 08/04/2020 00:00 08/11/2020 00:00 08/18/2020 00:00 WBC Unknown 9.41 6.57 5.54 9.73 7.25 RBC Unknown 4.60 Hemoglobin Unknown 14.8 14.0 14.2 15.7 13.8 Hematocrit Unknown 44.3 43.0 43.8 46.7 42.3 Platelets Unknown 163 141 41 (A) 167 123 Neutr Abs (ANC) Unknown 5.82 4.24 3.39 5.87 5.16 documented in this encounter Plan of Treatment Upcoming Encounters Date Type Department Care Team (Late st Contact Info) Description 02/22/2024 1:00 PM EDT Office Visit Hematology/Oncology at [address] [phone] Carrie Bruno MD [facility] DR HEMATOLOGY/[place] [address] Oliva Mccabe, RETAIL ACCOUNT SPECIALIST [facility] DR HEMATOLOGY/[place] [address] 09/11/2024 1:00 PM EST Office Visit Dermatology at [facility] [address] [place] [address] Lizeth Hallman MD [facility] [place] [address] documented as of this encounter Procedures Procedure Name Priority Date/Time Associated Diagnosis Comments CBC (WITH DIFF) Routine 08/18/2020 documented in this encounter Results * CBC (with Diff) (08/18/2020) WBC 7.25 Hemoglobin 13.8 Hematocrit 42.3 Platelets 123 Neutr Abs (ANC) 5.16 Blood specimen (specimen) 08/18/2020 Historical Provider HEMATOLOGY ORDERA BLES documented in this encounter Visit Diagnoses Not on filedocumented in this encounter Care Teams Electric Brain Wave Equipment Mechanic Relationship Specialty Start Date End Date Catracho Vernon MD [facility] [place] [phone] PCP - General Family Medicine 04/21/18 documented as of this encounter
--- OUTSIDE RECORDS SUMMARY | 2024-02-21 01:30 | XMS_ITS | Encounter Summary ---
Author Organization [facility] [place] [address] Care Team Providers Care Gas Golf Cart Repairer Name Role Phone Catracho Vernon MD Primary Care Provider [phone] Encounter Details Date Type Department Care Team (Late Contact Info) Description 12/13/2019 Orders Only Hematology/Oncology at [address] [phone] Carrie Bruno MD [facility] HEMATOLOGY/[place] [address] Thrombocytopenia Social History Tobacco Use Types Packs/Day [...] PM EDT Office Visit Hematology/Oncology at [address] [phone] Carrie Bruno MD [facility] HEMATOLOGY/[place] [address] Oliva Mccabe, NANNY/HOUSEHOLD MANAGER [facility] HEMATOLOGY/[place] [address] 09/11/2024 1:00 PM EST Office Visit Dermatology at [facility] [address] [place] [address] Lizeth Hallman MD [facility] [place] [address] documented as of this encounter Visit Diagnoses Diagnosis Thrombocytopenia Thrombocytopenia, unspecified documented in this encounter Care Teams Gas Golf Cart Repairer Relationship Specialty Start Date End Date Catracho Vernon MD [address] [place] [address] PCP - General Family Medicine 04/21/18 documented as of this encounter
--- OUTSIDE RECORDS SUMMARY | 2024-02-21 01:30 | XMS_ITS | Encounter Summary ---
Author Organization [facility] [place] [address] Care Team Providers Care Roofer Metal Name Role Phone Catracho Vernon MD Primary Care Provider [phone] Reason for Visit * Reason Onset Date Comments Labs Only 10/06/2020 lab tracking Encounter Details Date Type Department Care Team (Late st Contact Info) Description 10/06/2020 Telephone Hematology/Oncology at [address] [phone] Jackie Salinas RN Labs Only (lab tracking) Social History Tobacco Use Types Packs/Day Years Used Date Smoking Tobacco: Never Smokeless Tobacco: Never Sex and Gender Information Value Date Recorded Sex Assigned at Not on file Gender Identity Female 08/21/2020 5:05 PM EST Sexual Orientation Not on file documented as of this encounter Miscellaneous Notes * Telephone Encounter - Jackie Salinas RN - 10/06/2020 12:56 PM EST LAB TRACKING Torrey Conteh : 1945 DIAGNOSIS: ITP LABS ORDERED: cbc diff mondays MEDICATIONS: 07/16/20-dexamethasone 40 IV day one then daily for 3 days 08/05/20-08/08/20 dexamethasone 40 mg po daily Assessment/Plan: Labs sent to Dr. Bruno to review. Labs again next Tuesday. Telephone visit with Dr. Bruno this Tuesday. Called pt who agrees with plan. Results for TORREY CONTEH ( ) as of 10/06/2020 12:56 Ref. Range 09/17/2020 00:00 09/22/2020 00:00 09/29/2020 00:00 10/06/2020 00:00 WBC Unknown 5.08 3.89 4.88 5.1 Hemoglobin Unknown 13.1 13.5 13.8 14.1 Hematocrit Unknown 39.9 41.5 42.4 43.0 Platelets Unknown 88 155 150 129 Neutr Abs (ANC) Unknown 3.03 2.07 2.72 3 documented in this encounter Plan of Treatment Upcoming Encounters Date Type Department Care Team (Late st Contact Info) Description 02/22/2024 1:00 PM EDT Office Visit Hematology/Oncology at [address] [phone] Carrie Bruno MD [facility] DR HEMATOLOGY/[place] [address] Oliva Mccabe APRN [facility] DR HEMATOLOGY/[place] [address] 09/11/2024 1:00 PM EST Office Visit Dermatology at [address] [phone] Lizeth Hallman MD [facility] [place] [address] documented as of this encounter Procedures Procedure Name Priority Date/Time Associated Diagnosis Comments CBC (WITH DIFF) Routine 10/06/2020 documented in this encounter Results * CBC (with Diff) (10/06/2020) WBC 5.1 Hemoglobin 14.1 Hematocrit 43.0 Platelets 129 Neutr Abs (ANC) 3 Blood 10/06/2020 Historical Provider HEMATOLOGY ORDERA BLES documented in this encounter Visit Diagnoses Not on filedocumented in this encounter Care Teams Roofer Metal Relationship Specialty Start Date End Date Catracho Vernon MD [address] [place] [address] PCP - General Family Medicine 04/21/18 documented as of this encounter
--- OUTSIDE RECORDS SUMMARY | 2024-02-21 01:30 | XMS_ITS | Encounter Summary ---
Author Organization [facility] Address [facility] [place] [address] Care Team Providers Care Distribution Sales Manager Name Role Phone Catracho Vernon MD Primary Care Provider [phone] Encounter Details Date Type Department Care Team (Late st Contact Info) Description 08/27/2020 1:00 PM EST TH Visit (TeleHealth) Hematology/Oncology at [address] [phone] Carrie Heredia MD [facility] DR HEMATOLOGY/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 Darryl HAMILTON Has children who work in [employer] - her daughter and son-in-law work for [employer] in [place]. 2 boys. 3 children total and 4 grandchildren total. Retired [employer]. FAMILY HISTORY: Mother: CAD, renal Father: dementia [...] dexamethasone 40 mg x 4 days every 3-4 weeks for total of 6 months. This approach is tried and true. However she does have difficulty with the dexamethasone, especially feeling unsteady. Alternatively Ifound a small study in Journal of hematology [...] Covid vaccination. In light of this. I would like to hold off on the rituximab to be sure she gets an appropriate response to the COVID vaccination. We can always restart the rituximab at a later date. In the meantime I recommend continuing dexamethasone 40 mg x 4 days initially on a every 3 week basis but we canextend that to every 4 weeks as counts allow. Today she reports that she has had loose bowels since starting the dex. Bloating and rumbling has improved but diarrhea persists. She gets tired and thirsty when taking the dex. She also noted a dry pruritic scalp and rosacia when getting the dexamethasone. Never had this before. These SFX have nowresolved, except for the diarrhea. The side effects really bother her. We had a long discussion Regarding options. Shanita could continue dex 40mg X 4 days q 3 weeks vs IVIG vs other options. Ultimately we hope to start rituxan but want to wait until after the COVID vaccine. I also explained that dex has a chance for LT control vs IVIG which is only temporizing. We may need to give IVIG if the patient needs dex again before or immediately after her 09/15/20 vaccination. Ultimately Shanita decided to proceed with one more cycle of dex and then decide options going forward. I asked her to start dex 40mg po 08/28-08/31/20 ?? Ref: Journal of hematology 2013 Florentino-Jacque. Plan: ?? Dexamethasone 40 mg x4 days cycle #3 to start on 08/28/2020 ?? Telehealth visit in 3 weeks to re-evaluate and make plan for next steps. ?? Avoid dex immediately before or after her COVID vaccine (will use IVIG if necessary during this time frame) ?? CBC mondays with RN tracking; CMP also on 09/01/20 ?? IVIG if no response to dexamethasone ?? Rituxan 100mg weekly X 4 on hold for the current time until at least 2 weeks after COVID vaccinations. ?? Hep B and hep C negative in July 2021. She no longer has adequate hep B antibodies, she willdiscuss the role of a booster vaccination with her PCP. ?? Encouraged to follow-up on her hypertension with her PCP. We will also monitor it at her appointments. ?? She got her first COVID vaccine on 08/18/20. 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 Second vaccine is 09/15/20. I spent 30 min on this telehealth encounter including chart review, time with the patient and documentation. 4:20-4:50 I discussed all of the above with the patient and all of her questions were answered. Support and counseling given as appropriate. Shanita Francisco knows that she can call us any time with questions orconcerns. This note was written or modified using CO-Value voice recognition software. The final note was screened for mistakes. Please excuse any remaining errors. CARRIE HEREDIA MD documented in this encounter Plan of Treatment Upcoming Encounters Date Type Department Care Team (Late st Contact Info) Description 02/22/2024 1:00 PM EDT Office Visit Hematology/Oncology at [address] [phone] Carrie Heredia MD [facility] DR HEMATOLOGY/[place] [address] Oliva Mccabe, CASINO ENFORCEMENT AGENT [facility] DR HEMATOLOGY/[place] [address] 09/11/2024 1:00 PM EST Office Visit Dermatology at [facility] [address] [place] [phone] Lizeth Hallman MD [facility] DR [address] [place] [address] documented as of this encounter Visit Diagnoses Diagnosis Acute ITP Immune thrombocytopenic purpura documented in this encounter Care Teams Distribution Sales Manager Relationship Specialty Start Date End Date Catracho Vernon MD [address] [place], [place] [address] [address] PCP - General Family Medicine 04/21/18 documented as of this encounter
--- OUTSIDE RECORDS SUMMARY | 2024-02-21 01:30 | XMS_ITS | Encounter Summary ---
Author Organization [facility] Address [facility] [place] [address] Care Team Providers Care Art Gallery Internship Name Role Phone Catracho Vernon MD Primary Care Provider [phone] Reason for Visit * Reason Onset Date Comments Abnormal Labs 07/11/2020 critical plt Encounter Details Date Type Department Care Team (Late st Contact Info) Description 07/11/2020 Telephone Hematology Oncology at [address] [phone] Madison Corrales, RN Abnormal Labs (critical plt) Social History Tobacco Use Types Packs/Day Years Used Date Smoking Tobacco: Never Smokeless Tobacco: Never Sex and Gender Information Value Date Recorded Sex Assigned at Not on file Gender Identity Female 08/21/2020 5:05 PM EST Sexual Orientation Not on file documented as of this encounter Miscellaneous Notes * Telephone Encounter - Madison Corrales RN - 07/11/2020 3:35 PM EST Critical PLT today of 16. Down from 122 on 12/13/19. Known ITP being seen next week 07/16. I will let Dr. rBuno and ABDULLAHI Lemon know with this note. I spoke with Shanita to let her know her PLT's are low and she should use bleeding precautions. She was surprised at the news and looks fwd to meeting with Dr. Bruno next week. She does not report and signs of bleeding at this time, although she has a black hematoma on her gums about a week and a half ago that is completely resolved now. I advised her to seek emergency care if she shows any signs of bleeding and she agreed. documented in this encounter Plan of Treatment Upcoming Encounters Date Type Department Care Team (Late st Contact Info) Description 02/22/2024 1:00 PM EDT Office Visit Hematology/Oncology at [address] [phone] Carrie Bruno MD [facility] HEMATOLOGY/[place] [address] Oliva Mccabe APRN [facility] DR HEMATOLOGY/[place] [address] 09/11/2024 1:00 PM EST Office Visit Dermatology at [facility] [address] [place] [address] Lizeth Hallman MD [facility] [place] [address] documented as of this encounter Visit Diagnoses Not on filedocumented in this encounter Care Teams Art Gallery Internship Relationship Specialty Start Date End Date Catracho Vernon MD [facility] [place] [phone] PCP - General Family Medicine 04/21/18 documented as of this encounter
--- OUTSIDE RECORDS SUMMARY | 2024-02-21 01:30 | XMS_ITS | Encounter Summary ---
Author Organization [facility] Address [facility] [place] [address] Care Team Providers Care Aoc Operations Intelligence Officer Name Role Phone Catracho Vernon MD Primary Care Provider [phone] Reason for Visit * Reason Comments Skin Check Encounter Details Date Type Department Care Team ([facility] st Contact Info) Description 06/29/2018 11:15 AM EST Office Visit Dermatology at [address] [phone] Deepika Rene MD [facility] DR [address]TA [place] [address] SK (seborrheic keratosis); Congenital nevus; Lentigines; Dermatofibroma; Macular seborrheic keratosis Social History Tobacco Use Types Packs/Day Years Used Date Smoking Tobacco: Never Smokeless Tobacco: Never Sex and Gender Information Value Date Recorded Sex Assigned at Not on file Gender Identity Female 08/21/2020 5:05 PM EST Sexual Orientation Not on file documented as of this encounter Patient Instructions * Patient Instructions* Radha Luna RN - 06/29/2018 11:15 AM EST Sunscreen Fact: 1 in 5 people in the [place] will develop skin cancer in their lifetime. Anyone can get skin cancer, regardless of age, gender or race. Sunscreen helps prevent skin cancer by protecting you from the two types of harmful ultraviolet rays that reach the earth: UVA and UVB rays. UVA (aging) rays prematurely age your skin, causing wrinkles and age spots. UVB (burning) rays are the primary cause of a sunburn. Broad spectrum sunscreens provide protection from both UVA and UVB rays. Not all sunscreens are the same. Sunscreens work by forming either a chemical or physical barrier to UV light. Chemical barriers (avobenzone, Mexoryl SX, Helioplex) act like a sponge and absorb the sun's rays. Physical barriers (zinc oxide and titanium dioxide) act like a shield and deflect the sun's rays. Physical barriers are thick and generally require a little more effort to rub in but are considered safer than other forms, especially for sensitive skin. Claims that sunscreen ingredients are toxic or a hazard to the environment or human health have not been proven. A good sunscreen is SPF 30 or higher, broad spectrum, and water resistant. We recommend sunscreens (lotion, spray or stick) that contain at least one physical barrier. The best sunscreen is the one you will actually use! Recommended general use brands include: Blue Lizard, CoTZ, Neutrogena (Sheer Zinc Dry- Touch), Thinksport, Vanicream. Recommended sunscreen-containing moisturizers for daily use include: Erica NOLAN UV Clear Broad-Spectrum SPF (tinted or untinted) La Rafa-Postejas Anthelios Daily Moisturizer, ZO Skin Health ZO Skin Health Daily Sheer Broad Spectrum SPF 50, ZO Skin Health Sunscreen +Primer. Tips for proper use: ?? Wear sunscreen whenever you are outside, regardless of the season or weather. ?? Apply enough to cover all exposed skin. Most people only apply 25-50% of the recommended amount.Adults need about 1 ounce (a shot glass worth) to adequately cover their body. ?? Reapply every 2 hours or after swimming or sweating. Keep in mind that while a high-number SPF blocks more UVB rays than a low-number SPF, it lasts the same amount of time. ?? Protect your lips by applying a lip balm or stick with an SPF of 30+. Source: [place] [employer] documented in this encounter Progress Notes * Deepika Rene MD - 06/29/2018 11:15 AM EST DERMATOLOGY ESTABLISHED PATIENT CLINIC NOTE Date of service: 06/29/2018 Shanita Francisco : 1945 Provider: Deepika Rene MD Chief Complaint Patient presents with ??? Skin Check ?? SKIN HX: No personal history of Melanoma or NMSC No personal history of skin disease No pacemakers or defibrillators ?? Preferred name: Shanita Preferred method of contact for results: Home Phone OK to leave detailed message including biopsy results if applicable: Yes HPI Shanita Francisco is a 72 y.o. year old female, established patient last seen by me on Visit date not found. Here today for full skin exam with the following concerns: -notes a few keratoses on both legs, especially more prominent after sun exposure -notes recent skin sensitivity to the sun. [place] at the beach this past summer and used [place]-Rafa Posay SPF 25 but noticed her face broke out with pimple like pustules on the face. Notes that these resolved when she returned home from vacation. Denies any associated symptoms. Patient had never used La-Rafa Posay prior to this. Thought at first it might be a reaction to the sunscreen but thinks itwas a reaction to the sun. Is going to [facility] this winter for a week and would like a sunscreen recommendation. Patient reports that each spring small red welts appear on her chest. MEDS: Current Outpatient Medications Medication Sig Dispense Refill ??? ergocalciferol, vitamin D2, (VITAMIN D ORAL) Take 1,000 mg by mouth daily. ??? ubidecarenone (CO Q-10 ORAL) Take by mouth. No current facility-administered medications for this visit. ADR: No Known Allergies ROS General: feeling well Skin: denies other skin complaints EXAM General: NAD, pleasant, cooperative Skin: Patient asked to undress to their comfort level. Verbalized that the provider's preference isthat patient take everything with understanding that areas under clothing will not be examined. Patient elected to keep underwear on and have the following examined: skin of the face, ears, neck, chest, axillae, left and right upper and lower extremities, hands and feet, abdomen, and breasts. Significant skin findings: A. Trunk and extremities: Brown papule/plaques with waxy stuck-on appearance. B. Right cheek: evenly pigmented, medium-brown, hair-bearing plaque. C. Left shoulder: line of 3 firm papule, centrally raised and sclerotic, with peripheral hyperpigmentation and dimpling with lateral pressure. D. 0.3-0.6cm light-brown evenly pigmented, well-demarcated macule E. Bilateral legs: Thin, echevarria, well-demarcated, stuck-on plaques. F. Chest: clear on exam. G. Face: clear on exam. ASSESSMENT/PLAN: A. Seborrheic Keratosis - Etiology discussed - Patient reassured that benign in nature - Treatment of an asymptomatic seborrheic keratosis is considered a cosmetic procedure and is not covered by insurance. 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 - Discussed benign nature of lesion and provided reassurance. No treatment necessary at this time. - Discussed changes (bleeding, pain, color or shape) that should prompt re-evaluation.?? - Continue to monitor. C. Dermatofibroma - Discussed benign nature of lesion and provided reassurance - No treatment necessary at this time - Observe skin for change in color, size or character. Call if such occur D. Lentigines -Discussed importance of sun protection, sun avoidance strategies, protective clothing, and sunscreen. E. Macular Seborrheic Keratoses - Discussed benign nature of lesions and provided reassurance. No treatment necessary at this time. F. ?Polymorphous Light Eruption -Patient will call if flaring in spring for evaluation G. ?comedonal adverse reaction to sunscreen -Provided AVS with sunscreen recommendations FOLLOW-UP: RTC in 1 year for follow-up and full skin exam, or sooner if needed. Reminder placed in the system to schedule. Patient instructed to call with any questions or concerns. I am documenting this encounter acting as the scribe for and in the presence of Dr. Rene: Radha Luna RN and Leny Salazar I performed the above scribed service and agree with the accuracy of the documentation in this encounter. Deepika Rene MD Title I Coordinator of Dermatology, Department of Surgery [facility] documented in this encounter Plan of Treatment Upcoming Encounters Date Type Department Care Team (Late st Contact Info) Description 02/22/2024 1:00 PM EDT Office Visit Hematology/Oncology at [address] [phone] Carrie Bruno MD [facility] DR HEMATOLOGY/[place] [address] Oliva Mccabe, LEI SELLER [facility] HEMATOLOGY/[place] [address] 09/11/2024 1:00 PM EST Office Visit Dermatology [address] [address] Lizeth Hallman MD [facility] DR DONTA [place] [address] documented as of this encounter Visit Diagnoses Diagnosis SK (seborrheic keratosis) Other seborrheic keratosis Congenital nevus Benign neoplasm of skin, site unspecified Lentigines Other dyschromia Dermatofibroma Benign neoplasm of skin, site unspecified Macular seborrheic keratosis documented in this encounter Care Teams Aoc Operations Intelligence Officer Relationship Specialty Start Date End Date Catracho Vernon MD [facility] [place] [address] PCP - General Family Medicine 04/21/18 documented as of this encounter
--- OUTSIDE RECORDS SUMMARY | 2024-02-21 01:30 | XMS_ITS | Encounter Summary ---
Author Organization [facility] Address [facility] [place] [address] Care Team Providers Care Cosmetology Educator Name Role Phone Catracho Vernon MD Primary Care Provider [phone] Encounter Details Date Type Department Care Team (Late st Contact Info) Description 07/16/2020 12:00 PM EST Office Visit Hematology/Oncology at [address] [phone] Carrie Heredia MD [facility] DR HEMATOLOGY/[place] [address] Thrombocytopenia Social History Tobacco Use Types Packs/Day Years Used Date Smoking Tobacco: Never Smokeless Tobacco: Never Sex and Gender Information Value Date Recorded Sex Assigned at Not on file Gender Identity Female 08/21/2020 5:05 PM EST Sexual Orientation Not on file documented as of this encounter Last Filed Vital Signs Vital Sign Reading Time Taken Comments Blood Pressure 177/81 07/16/2020 10:32 AM EST Pulse 70 07/16/2020 10:32 AM EST Temperature 36.2 ??C (97.1 ??F) 07/16/2020 1 0:32 AM EST Respiratory Rate 16 07/16/2020 10:3 2 AM EST Oxygen Saturation 99% 07/16/2020 10: 32 AM EST Inhaled Oxygen Concentration - - Weight 72.9 kg (160 lb 12.8 oz) 020 10:32 AM EST Height 160 cm (5' 2.99) 07/16/2020 10: 32 AM EST Body Mass Index 28.49 07/16/2020 10:32 AM EST documented in this encounter Progress Notes * Carrie Heredia MD - 07/16/2020 12:00 PM EST OUTPATIENT HEMATOLOGY/ ONCOLOGY CONSULTATION [...] fevers/ chills/ night sweat. No illnesses or viruses, however, she has noted more chills. A week before Thanksgiving she had a stiff neck and shoulder aches and back stiffness. No fevers but just did not feel good. No bleeding or bruising, but notes a blood blister on R buccal mucosa. No melana. Some gum bleeding. No H/A or change in vision. Torrey is appropriately sheltering in and following perez virus epidemic precautions. She has gained weight which she does not like. 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 50 anniversary is 2019! Darryl HAMILTON Has children who work in [place] - her daughter and son-in-law work for [employer] in [place]. 2 boys. 3 children total and 4 grandchildren total. Retired [employer]. FAMILY HISTORY: Mother: CAD, renal Father: [...] or weight on file to calculate BSA. GENERAL: Torrey Conteh appears well and is [...] for TORREY CONTEH ( ) as of 07/16/2020 10:51 Ref. Range 12/13/2019 00:00 07/11/2020 00:00 WBC Unknown 4.65 7.45 Hemoglobin Unknown 14.5 13.9 Hematocrit Unknown 43.5 42.7 Platelets Unknown 122 16 Neutr Abs (ANC) Unknown 2.49 4.68 Creatinine Unknown 0.95 Calcium Unknown 10.2 Albumin Unknown 4.1 [...] 120,000. This seems to be her baseline. Torrey returns today for her regularly scheduled appointment. She does note viral symptoms about 2 to 3 weeks ago at the time of Thanksgi. She has noted a blood blister in her mouth for several days. Other than that she has no bleeding or bruising. Platelets returned on 07/11 at 16,000, and repeat today on 07/16/2020 is 15,000. Given that she has no other manifestations of bleeding or bruising, and platelet count has been relatively stable, I think we can safely try dexamethasone only. She prefers not to use IVIG unless she does not respond to the dexamethasone. We talked about some of the treatments [...] this, and possibly even a long-term cure. Plan: ?? Dexamethasone 40 mg IV in clinic today ?? Dexamethasone 40 mg oral every morning x3 more days starting on 07/17 ?? CBC on 07/17 in the afternoon with RN tracking ?? IVIG if no response to dexamethasone ?? CBC on 07/21/2020 with RN tracking ?? Telephone appointment with [facility] on 07/23/2020 to determine next steps I discussed all of the above with the patient and all of her questions were answered. Support and counseling given as appropriate. Torrey Conteh knows that she can call us any time with questions orconcerns. This note was written or modified using Dash Hudson voice recognition software. The final note was screened for mistakes. Please excuse any remaining errors. CARRIE HEREDIA MD documented in this encounter Miscellaneous Notes * Addendum Note - Lonnie Salinas RN - 07/16/2020 12:00 PM ESTAddended by: LONNIE SALINAS on: 07/16/2020 03:59 PM Modules accepted: Orders documented in this encounter Plan of Treatment Upcoming Encounters Date Type Department Care Team (Late st Contact Info) Description 02/22/2024 1:00 PM EDT Office Visit Hematology/Oncology at [address] [phone] Carrie Heredia MD [facility] HEMATOLOGY/[place] [address] Oliva Mccabe, SALON RECEPTIONIST [facility] HEMATOLOGY/[place] [address] 09/11/2024 1:00 PM EST Office Visit Dermatology at [facility] [address] [place] [address] Lizeth Hallman MD [facility] [place] [address] documented as of this encounter Procedures Procedure Name Priority Date/Time Associated Diagnosis Comments CBC (WITH DIFF) Routine 07/16/2020 CBC (WITH DIFF) Routine 07/11/2020 documented in this encounter Results * CBC (with Diff) (07/16/2020) WBC 5.72 Hemoglobin 14.6 Hematocrit 44.8 Platelets 15 Neutr Abs (ANC) 3.57 Creatinine 0.97 Blood specimen (specimen) 07/16/2020 Historical Provider HEMATOLOGY ORDERA BLES * CBC (with Diff) (07/11/2020) WBC 7.45 Hemoglobin 13.9 Hematocrit 42.7 Platelets 16 Neutr Abs (ANC) 4.68 Blood specimen (specimen) 07/11/2020 Historical Provider HEMATOLOGY ORDERA BLES documented in this encounter Visit Diagnoses Diagnosis Thrombocytopenia Thrombocytopenia, unspecified documented in this encounter Care Teams Cosmetology Educator Relationship Specialty Start Date End Date Catracho Vernon MD [address] [place] [address] PCP - General Family Medicine 04/21/18 documented as of this encounter
--- OUTSIDE RECORDS SUMMARY | 2024-02-21 01:30 | XMS_ITS | Encounter Summary ---
Author Organization [facility] [place] [address] Care Team Providers Care Lightning Protection Installer Name Role Phone Catracho Vernon MD Primary Care Provider [phone] Reason for Visit * Reason Onset Date Comments Labs Only 09/01/2020 lab tracking Encounter Details Date Type Department Care Team (Late st Contact Info) Description 09/01/2020 Telephone Hematology/Oncology at [address] [phone] Jackie Salinas RN Labs Only (lab tracking) Social History Tobacco Use Types Packs/Day Years Used Date Smoking Tobacco: Never Smokeless Tobacco: Never Sex and Gender Information Value Date Recorded Sex Assigned at Not on file Gender Identity Female 08/21/2020 5:05 PM EST Sexual Orientation Not on file documented as of this encounter Miscellaneous Notes * Telephone Encounter - Jackie Salinas RN - 09/01/2020 11:57 AM EST LAB TRACKING Torrey Conteh : 1945 DIAGNOSIS: ITP LABS ORDERED: cbc diff 08/11, 08/18, 08/25 MEDICATIONS: 07/16/20-dexamethasone 40 IV day one then daily for 3 days 08/05/20-08/08/20 dexamethasone 40 mg po daily Assessment/Plan: Labs sent to Dr. Bruno to review. Pt will get another cmp next week to see whatALT is doing. Cbc in a week pt agrees with plan. Results for TORREY CONTEH ( ) as of 09/01/2020 13:29 Ref. Range 08/11/2020 00:00 08/18/2020 00:00 08/25/2020 00:00 09/01/2020 00:00 WBC Unknown 9.73 7.25 5.19 9.12 Hemoglobin Unknown 15.7 13.8 13.6 14.2 Hematocrit Unknown 46.7 42.3 41.2 42.9 Platelets Unknown 167 123 86 198 Neutr Abs (ANC) Unknown 5.87 5.16 3.09 7.73 Creatinine Unknown 0.9 Glucose Wh Bl Unknown 164 Alk Phos Unknown 74 AST Unknown 32 ALT Unknown 134 documented in this encounter Plan of Treatment Upcoming Encounters Date Type Department Care Team (Late st Contact Info) Description 02/22/2024 1:00 PM EDT Office Visit Hematology/Oncology at [address] [phone] Carrie Bruno MD [facility] DR HEMATOLOGY/[place] [address] Oliva Mccabe, CLIENT MANAGER [employer] [facility] DR HEMATOLOGY/[place] [address] 09/11/2024 1:00 PM EST Office Visit Dermatology at [place] [address] [place] [address] Lizeth Hallman MD [facility] [place] [address] documented as of this encounter Procedures Procedure Name Priority Date/Time Associated Diagnosis Comments CBC (WITH DIFF) Routine 09/01/2020 GLUCOSE, RANDOM Routine 09/01/2020 documented in this encounter Results * Glucose, random (09/01/2020) Glucose Wh Bl 164 Blood 09/01/2020 Historical Provider CHEMISTRY ORDERAB LES * CBC (with Diff) (09/01/2020) WBC 9.12 Hemoglobin 14.2 Hematocrit 42.9 Platelets 198 Neutr Abs (ANC) 7.73 Creatinine 0.9 ALT 134 AST 32 Alk Phos 74 Blood 09/01/2020 Historical Provider HEMATOLOGY ORDERA BLES documented in this encounter Visit Diagnoses Not on filedocumented in this encounter Care Teams Lightning Protection Installer Relationship Specialty Start Date End Date Catracho Vernon MD [address] [place] [address] PCP - General Family Medicine 04/21/18 documented as of this encounter
--- OUTSIDE RECORDS SUMMARY | 2024-02-21 01:30 | XMS_ITS | Encounter Summary ---
Author Organization [facility] [place] [address] Care Team Providers Care Ammunition Officer Name Role Phone Catracho Vernon MD Primary Care Provider [phone] Reason for Visit * Reason Onset Date Comments Follow-up 05/07/2019 Encounter Details Date Type Department Care Team (Late Contact Info) Description 05/07/2019 Telephone Hematology/Oncology at [address] [phone] Jackie Salinas RN Follow-up Social History Tobacco Use Types Packs/Day Years Used Date Smoking Tobacco: Never Smokeless Tobacco: Never Sex and Gender Information Value Date Recorded Sex Assigned at Not on file Gender Identity Female 08/21/2020 5:05 PM EST Sexual Orientation Not on file documented as of this encounter Miscellaneous Notes * Telephone Encounter - Jackie Salinas RN - 05/07/2019 4:55 PM EDT Left message for patient to go have CBC drawn so Dr. Bruno could [facility]. Ask pt to call us when she gets this done. documented in this encounter Plan of Treatment Upcoming Encounters Date Type Department Care Team (Late st Contact Info) Description 02/22/2024 1:00 PM EDT Office Visit Hematology/Oncology at [address] [phone] Carrie Bruno MD [facility] HEMATOLOGY/[place] [address] Oliva Mccabe APRN [facility] HEMATOLOGY/[place] [address] 09/11/2024 1:00 PM EST Office Visit Dermatology at [facility] [address] [place] [phone] Lizeth Hallman MD [facility] [address] [place] [address] documented as of this encounter Visit Diagnoses Not on filedocumented in this encounter Care Teams Ammunition Officer Relationship Specialty Start Date End Date Catracho Vernon MD [address] [place], [place] [address] [address] PCP - General Family Medicine 04/21/18 documented as of this encounter
--- OUTSIDE RECORDS SUMMARY | 2024-02-21 01:30 | XMS_ITS | Encounter Summary ---
Author Organization [facility] [place] [address] Care Team Providers Care Stock Preparation Operator Name Role Phone Catracho Vernon MD Primary Care Provider [phone] Reason for Visit * Reason Onset Date Comments Labs Only 10/20/2020 Lab Tracking Encounter Details Date Type Department Care Team (Late st Contact Info) Description 10/20/2020 Telephone Hematology Oncology at [address] [phone] Ebony Kendall, RN Labs Only (Lab Tracking) Social History Tobacco Use Types Packs/Day Years Used Date Smoking Tobacco: Never Smokeless Tobacco: Never Sex and Gender Information Value Date Recorded Sex Assigned at Not on file Gender Identity Female 08/21/2020 5:05 PM EST Sexual Orientation Not on file documented as of this encounter Miscellaneous Notes * Telephone Encounter - Ebony Kendall RN - 10/20/2020 12:34 PM EDT LAB TRACKING Torrey Conteh : 1945 DIAGNOSIS: ITP LABS ORDERED: cbc diff mondays MEDICATIONS: 07/16/20-dexamethasone 40 IV day one then daily for 3 days 08/05/20-08/08/20 dexamethasone 40 mg po daily Assessment/Plan: Labs sent to Dr. Bruno to review. Spoke to Torrey. Labs again in one week. Patient agrees with plan. Results for TORREY CONTEH Noel ( ) as of 10/20/2020 12:35 Ref. Range 09/29/2020 00:00 10/06/2020 00:00 10/13/2020 00:00 10/20/2020 00:00 WBC Unknown 4.88 5.1 5.24 5.38 RBC Unknown 4.65 Hemoglobin Unknown 13.8 14.1 14.4 14.0 Hematocrit Unknown 42.4 43.0 44.2 43.1 Platelets Unknown 150 129 99 95 Neutr Abs (ANC) Unknown 2.72 3 3.11 3.28 documented in this encounter Plan of Treatment Upcoming Encounters Date Type Department Care Team (Late st Contact Info) Description 02/22/2024 1:00 PM EDT Office Visit Hematology/Oncology at [address] [phone] Carrie Bruno MD [facility] [address] HEMATOLOGY/[place] [address] Oliva Mccabe APRN [facility] [address] HEMATOLOGY/[place] [address] 09/11/2024 1:00 PM EST Office Visit Dermatology at [facility] [address] [place] [address] Lizeth Hallman MD [facility] [address] [place] [address] documented as of this encounter Procedures Procedure Name Priority Date/Time Associated Diagnosis Comments CBC (WITH DIFF) Routine 10/20/2020 documented in this encounter Results * CBC (with Diff) (10/20/2020) WBC 5.38 RBC 4.65 Hemoglobin 14.0 Hematocrit 43.1 Platelets 95 Neutr Abs (ANC) 3.28 Blood 10/20/2020 Carrie Bruno MD HEMATOLOGY ORDER JAMIE documented in this encounter Visit Diagnoses Not on filedocumented in this encounter Care Teams Stock Preparation Operator Relationship Specialty Start Date End Date Catracho Vernon MD [address] [place] [address] PCP - General Family Medicine 04/21/18 documented as of this encounter
--- OUTSIDE RECORDS SUMMARY | 2024-02-21 01:30 | XMS_ITS | Encounter Summary ---
Author Organization [facility] [place] [address] Care Team Providers Care Iso Coordinator Name Role Phone Catracho Vernon MD Primary Care Provider [phone] Reason for Visit * Reason Onset Date Comments Labs Only 09/17/2020 lab tracking Encounter Details Date Type Department Care Team (Late st Contact Info) Description 09/17/2020 Telephone Hematology/Oncology at [address] [phone] Jackie Salinas RN Labs Only (lab tracking) Social History Tobacco Use Types Packs/Day Years Used Date Smoking Tobacco: Never Smokeless Tobacco: Never Sex and Gender Information Value Date Recorded Sex Assigned at Not on file Gender Identity Female 08/21/2020 5:05 PM EST Sexual Orientation Not on file documented as of this encounter Miscellaneous Notes * Telephone Encounter - Jackie Salinas RN - 09/17/2020 11:52 AM EST LAB TRACKING Torreydestiny Conteh : 1945 DIAGNOSIS: ITP LABS ORDERED: cbc diff mondays MEDICATIONS: 07/16/20-dexamethasone 40 IV day one then daily for 3 days 08/05/20-08/08/20 dexamethasone 40 mg po daily Assessment/Plan: Dr. Bruno saw pt in clinic today. Pt's PLT stable no IVIG this week. She will have labs Tuesday if PLT down then IVIG Tuesday. Left message for Torrey about this. She will call with questions or concerns. Results for TORREY CONTEH ( ) as of 09/17/2020 11:51 Ref. Range 08/25/2020 00:00 09/01/2020 00:00 09/08/2020 00:00 09/15/2020 00:00 09/17/2020 00:00 WBC Unknown 5.19 9.12 6.62 5.77 5.08 Hemoglobin Unknown 13.6 14.2 13.9 13.5 13.1 Hematocrit Unknown 41.2 42.9 42.3 41.2 39.9 Platelets Unknown 86 198 159 91 88 Neutr Abs (ANC) Unknown 3.09 7.73 4.12 3.53 3.03 documented in this encounter Plan of Treatment Upcoming Encounters Date Type Department Care Team (Late st Contact Info) Description 02/22/2024 1:00 PM EDT Office Visit Hematology/Oncology at [address] [phone] Carrie Bruno MD [facility] DR HEMATOLOGY/[place] [address] Oliva Mccabe APRN [facility] HEMATOLOGY/[place] [address] 09/11/2024 1:00 PM EST Office Visit Dermatology at [address] [place] [address] Lizeth Hallman MD [facility] [address] [place] [address] documented as of this encounter Procedures Procedure Name Priority Date/Time Associated Diagnosis Comments CBC (WITH DIFF) Routine 09/17/2020 documented in this encounter Results * CBC (with Diff) (09/17/2020) WBC 5.08 Hemoglobin 13.1 Hematocrit 39.9 Platelets 88 Neutr Abs (ANC) 3.03 Blood 09/17/2020 Historical Provider HEMATOLOGY ORDERA BLES documented in this encounter Visit Diagnoses Not on filedocumented in this encounter Care Teams Iso Coordinator Relationship Specialty Start Date End Date Catracho Vernon MD [address] [place] [address] PCP - General Family Medicine 04/21/18 documented as of this encounter
--- OUTSIDE RECORDS SUMMARY | 2024-02-21 01:30 | XMS_ITS | Encounter Summary ---
Author Organization [facility] [place] [address] Care Team Providers Care Assistant Case Manager Name Role Phone Catracho Vernon MD Primary Care Provider [phone] Reason for Visit * Reason Onset Date Comments Labs Only 10/27/2020 lab tracking Encounter Details Date Type Department Care Team (Late st Contact Info) Description 10/27/2020 Telephone Hematology/Oncology at [address] [phone] Jackie Salinas RN Labs Only (lab tracking) Social History Tobacco Use Types Packs/Day Years Used Date Smoking Tobacco: Never Smokeless Tobacco: Never Sex and Gender Information Value Date Recorded Sex Assigned at Not on file Gender Identity Female 08/21/2020 5:05 PM EST Sexual Orientation Not on file documented as of this encounter Miscellaneous Notes * Telephone Encounter - Jackie Salinas RN - 10/27/2020 11:23 AM EDT LAB TRACKING Torrey Conteh : 1945 DIAGNOSIS: ITP LABS ORDERED: cbc diff mondays MEDICATIONS: 07/16/20-dexamethasone 40 IV day one then daily for 3 days 08/05/20-08/08/20 dexamethasone 40 mg po daily Assessment/Plan: Labs sent to Dr. Bruno to review. Spoke to Torrey. Labs again in one week. Patient agrees with plan. Per Dr. Bruno it pt remains stable next week will go to every other week forlabs. Results for TORREY CONTEH ( ) as of 10/27/2020 11:22 Ref. Range 10/06/2020 00:00 10/13/2020 00:00 10/20/2020 00:00 10/27/2020 00:00 WBC Unknown 5.1 5.24 5.38 4.58 RBC Unknown 4.65 Hemoglobin Unknown 14.1 14.4 14.0 14.1 Hematocrit Unknown 43.0 44.2 43.1 42.7 Platelets Unknown 129 99 95 95 Neutr Abs (ANC) Unknown 3 3.11 3.28 2.63 documented in this encounter Plan of Treatment Upcoming Encounters Date Type Department Care Team (Late st Contact Info) Description 02/22/2024 1:00 PM EDT Office Visit Hematology/Oncology at [address] [phone] Carrie Bruno MD [facility] [address] HEMATOLOGY/[place] [address] Oliva Mccabe APRN [facility] [address] HEMATOLOGY/[place] [address] 09/11/2024 1:00 PM EST Office Visit Dermatology at [facility] [address] [place] [phone] Lizeth Hallman MD [facility] [address] [place] [address] documented as of this encounter Procedures Procedure Name Priority Date/Time Associated Diagnosis Comments CBC (WITH DIFF) Routine 10/27/2020 documented in this encounter Results * CBC (with Diff) (10/27/2020) WBC 4.58 Hemoglobin 14.1 Hematocrit 42.7 Platelets 95 Neutr Abs (ANC) 2.63 Blood 10/27/2020 Historical Provider HEMATOLOGY ORDERA BLES documented in this encounter Visit Diagnoses Not on filedocumented in this encounter Care Teams Assistant Case Manager Relationship Specialty Start Date End Date Catracho Vernon MD [address] [place] [address] PCP - General Family Medicine 04/21/18 documented as of this encounter
--- OUTSIDE RECORDS SUMMARY | 2024-02-21 01:30 | XMS_ITS | Encounter Summary ---
Author Organization [facility] [place] [address] Care Team Providers Care Side Laster Name Role Phone Catracho Vernon MD Primary Care Provider [phone] Reason for Visit * Reason Comments IV Medication Dexamethasone Encounter Details Date Type Department Care Team (Late st Contact Info) Description 07/16/2020 11:30 AM EST Infusion Hematology Oncology at [address] [phone] Thrombocytopenia Social History Tobacco Use Types Packs/Day Years Used Date Smoking Tobacco: Never Smokeless Tobacco: Never Sex and Gender Information Value Date Recorded Sex Assigned at Not on file Gender Identity Female 08/21/2020 5:05 PM EST Sexual Orientation Not on file documented as of this encounter Progress Notes * Madison Corrales RN - 07/16/2020 11:30 AM EST INFUSION THERAPY ADMINISTRATION NOTES DIAGNOSIS: ITP REASON FOR VISIT: IV dexamethasone SUBJECTIVE Shanita offers no complaints. OBJECTIVE LAB DATA: WBC 5.72, HGB 14.6, HCT 44.8, PLT 15, ANC 3.57, BUN 19, Cr 0.97 IV ACCESS: PIV left hand. Pre administration: Infusion orders independently verified for drug name, route, and dosage per patient's height, weight and BSA by Sherif Corrales RN & [facility] onsite. REACTIONS (DESCRIPTION, TIME, INTERVENTION AND EFFECTIVENESS) none ASSESSMENT Shanita was awake, alert and tolerated treatment well. AVS given to Shanita and went over the plan for her to take 40mg dexamethasone PO for 3 days starting tomorrow morning. She will have a CBC again tomorrow afternoon with RN tracking and determine if she will need IVIG on Tuesday. CBC after that on 07/21. PLAN Return to clinic per routine. documented in this encounter Plan of Treatment Upcoming Encounters Date Type Department Care Team (Late st Contact Info) Description 02/22/2024 1:00 PM EDT Office Visit Hematology/Oncology at [address] [phone] Carrie Bruno MD [facility] DR HEMATOLOGY/[place] [address] Oliva Mccabe APRN [facility] DR HEMATOLOGY/[place] [address] 09/11/2024 1:00 PM EST Office Visit Dermatology at [place] [address] [place] [address] Lizeth Hallman MD [facility] [place] [address] documented as of this encounter Visit Diagnoses Diagnosis Thrombocytopenia Thrombocytopenia, unspecified documented in this encounter Administered Medications Inactive Administered Medications - up to 3 most recent administrations Medication Order MAR Action Action Date Dose Rate Site dexamethasone (Decadron) 40 mg in sodium chloride 0.9% 60 mL infusion 40 mg, Intravenous, ONCE, 1 dose, On Tue07/16/20 at 1130, Administer over 30 Minutes New Bag 07/16/2020 11:43 AM EST 40 mg 120 mL/hr documented in this encounter Care Teams Side Laster Relationship Specialty Start Date End Date Catracho Vernon MD [place] [address] PCP - General Family Medicine 04/21/18 documented as of this encounter
--- OUTSIDE RECORDS SUMMARY | 2024-02-21 01:31 | XMS_ITS | Encounter Summary ---
Author Organization [facility] [place] [address] Care Team Providers Care Typesetters Printer Name Role Phone Catracho Vernon MD Primary Care Provider [phone] Encounter Details Date Type Department Care Team (Latest Contact Info) Description 04/21/2018 1:42 PM EDT - 04/21/2018 11:59 PM EDT Hospital Encounter [place]ematology [place] [address] Thrombocytopenia Discharge Disposition: Home Social History Tobacco [...] PM EDT Office Visit Hematology/Oncology at [address] [phone] Carrie Bruno MD [facility] DR HEMATOLOGY/[place] [address] Oliva Mccabe APRN [facility] HEMATOLOGY/[place] [address] 09/11/2024 1:00 PM EST Office Visit Dermatology at [facility] [address] [place] [phone] Lizeth Hallman MD [facility] [place] [address] documented as of this encounter Procedures Procedure Name Priority Date/Time Associated Diagnosis Comments HEMOGRAM Routine 04/21/2018 1:46 PM EDT Thrombocytopenia DIFFERENTIAL, AUTOMATED Routine 04/21/2018 1:46 PM EDT Thrombocytopenia CBC (WITH DIFF) Routine 04/21/2018 1:46 PM EDT Thrombocytopenia documented in this encounter Results * Differential, Automated (04/21/2018 1:46 PM EDT) Neutrophils % 58.0 % [facility] Neutr Abs (ANC) 3.63 1.70 - 6.10 x10(3)/[facility] Lymphocytes % 29.0 % [facility] Lymphocytes Abs 1.8 0.9 - 3.2 x10(3)/[facility] Monocytes % 10.0 % [facility] Monocyte Abs 0.6 0.3 - 0.9 x10(3)/[facility] Eosinophils % 1.4 % [facility] Eosinophils Abs 0.1 0.0 - 0.4 x10(3)/[facility] Basophils % 1.3 % [facility] Basophils Abs 0.1 0.0 - 0.1 x10(3)/[facility] Immature Gran % 0.30 % [facility] Comment: Immature granulocytes(IG's)percentage and absolute count will include metamyelocytes, myelocytes, and promyelocytes. Blood smears from CBCs yielding IG's will be scanned manually for concordance. If this scan disagrees with the automated IG or if promyelocytes are noted, a manual differential will be performed. Mackenzie Gran Abs 0.02 0.00 - 0.04 x10(3)/[facility] Blood specimen (specimen) 04/21/2018 1:46 PM EDT 04/21/2018 1:57 PM EDT Narrative Resulting Agency Comment Spec In Lab Mil Jade MD HEMATOLOGY ORDERAB LES [facility] [place] [address] * (ABNORMAL) Hemogram (04/21/2018 1:46 PM EDT) WBC 6.3 4.0 - 9.5 x10(3)/[facility] RBC 4.85 4.00 - 5.21 x10(6)/[facility] Hemoglobin 14.4 11.7 - 15.5 gm/dL [facility] Hematocrit 43.0 35.7 - 45.8 % [facility] MCV 88.7 82.6 - 94.4 [facility] MCH 29.7 27.1 - 32.0 pg [facility] MCHC 33.5 31.7 - 35.0 gm/dL [facility] Platelets 33(L) 145 - 357 x10(3)/[facility] RDWSD 40.5 37.0 - 46.0 [facility] RDWCV 12.4 11.5 - 14.1 % [facility] MPV 13.0(H) 7.6 - 12.9 [facility] nRBC % Auto 0.0 % [facility] nRBC Abs Auto 0.000 0.000 - 0.000 x10(3)/[facility] Blood specimen (specimen) 04/21/2018 1:46 PM EDT 04/21/2018 1:57 PM EDT Narrative Resulting Agency Comment Spec In Lab Mil Jade MD [place] [address] documented in this encounter Visit Diagnoses Diagnosis Thrombocytopenia Thrombocytopenia, unspecified documented in this encounter Care Teams Typesetters Printer Relationship Specialty Start Date End Date Catracho Vernon MD [address] [place] [address] PCP - General Family Medicine 04/21/18 documented as of this encounter
--- OUTSIDE RECORDS SUMMARY | 2024-02-21 01:31 | XMS_ITS | Encounter Summary ---
Author Organization Formerly [facility] Address [facility] [place] [address] Care Team Providers Care Thermoplastic Technician Name Role Phone Catracho Vernon MD Primary Care Provider Reason for Visit * Reason Comments Follow-up Encounter Details Date Type Department Care Team ([facility] st Contact Info) Description 04/28/2018 9:30 AM EDT Office Visit Hematology and Oncology at [facility] [place] [address] Mil Jade MD [facility] [place] [address] Chronic ITP (idiopathic thrombocytopenia) Social History Tobacco Use Types Packs/Day Years Used Date Smoking Tobacco: Never Smokeless Tobacco: Never Sex and Gender Information Value Date Recorded Sex Assigned at Not on file Gender Identity Female 08/21/2020 5:05 PM EST Sexual Orientation Not on file documented as of this encounter Last Filed Vital Signs Vital Sign Reading Time Taken Comments Blood Pressure 152/65 04/28/2018 9:19 AM EDT Pulse 62 04/28/2018 9:19 AM EDT Temperature 36.3 ??C (97.3 ??F) 04/28/2018 9:19 AM ED T Respiratory Rate 18 04/28/2018 9:19 AM EDT Oxygen Saturation 98% 04/28/2018 9:19 AM EDT Inhaled Oxygen Concentration - - Weight 72.4 kg (159 lb 9.6 oz) 04/28/2018 9:18 A M EDT Height 160 cm (5' 2.99) 04/28/2018 9:18 AM EDT Body Mass Index 28.28 04/28/2018 9:18 AM EDT documented in this encounter Progress Notes * Mela Munoz - 04/28/2018 9:30 AM EDT OUTPATIENT HEMATOLOGY/ ONCOLOGY CONSULTATION [...] 07/08- ?? 09/2017- ?? 09/2017- 111 ?? 04/21- ?? 04/28- (after dexamethasone) ?? HepC/ HIV- negative Treatment Course ?? 06/17- observation ?? 04/2018- Dexamethasone 40mg x 4 days INTERIM HISTORY Shanita returns in follow-up for her thrombocytopenia. She completed a 4 day course of Dexamethasone on Tuesday. Tolerated it well but mentions some residual light headedness when she stands up quickly. Denies any bleeding or bruising. SOCIAL HISTORY- reviewed with significant changes noted , never smoker Rare ETOH Has children who work in [employer] MEDICATIONS AND ALLERGIES- reviewed at this visit Medications 04/28/18 0919 Not on File PAST MEDICAL HISTORY- reviewed Patient Active Problem List Diagnosis Code ??? Healthcare maintenance Z00.00 ??? Nevus D22.9 ??? Thrombocytopenia D69.6 FAMILY HISTORY- reviewed No ITP or hematologic disorders COMPREHENSIVE REVIEW OF SYSTEMS Besides what is mentioned in the HPI, all other systems are negative PHYSICAL EXAMINATION Most Recent Vitals: 04/28/18 0919 BP: 152/65 Pulse: 62 Resp: 18 Temp: 36.3 ??C (97.3 ??F) SpO2: 98% NAD, pleasant Heart is RRR Lung sounds are CTAB Abd is soft, NT/ ND, there is no palpable organomegally Lymphadenopathy is not appreciated Joints are not swollen or inflamed There are no gross neurologic deficits Affect and mood are appropriate for the situation There are no appreciable rashes or bruises LABORATORY EVALUATION Recent Results (from the past 24 hour(s)) Hemogram Result Value Ref Range WBC 9.0 4.0 - 9.5 x10(3)/mcL RBC 4.91 4.00 - 5.21 x10(6)/mcL Hemoglobin 14.9 11.7 - 15.5 gm/dL Hematocrit 44.4 35.7 - 45.8 % MCV 90.4 82.6 - 94.4 fL MCH 30.3 27.1 - 32.0 pg MCHC 33.6 31.7 - 35.0 gm/dL Platelets 111 (L) 145 - 357 x10(3)/mcL RDWSD 41.1 37.0 - 46.0 fL RDWCV 12.5 11.5 - 14.1 % MPV 10.9 7.6 - 12.9 fL nRBC % Auto 0.0 % nRBC Abs Auto 0.000 0.000 - 0.000 x10(3)/mcL Differential, Automated Result Value Ref Range Neutrophils % 63.9 % Neutr Abs (ANC) 5.77 1.70 - 6.10 x10(3)/mcL Lymphocytes % 25.2 % Lymphocytes Abs 2.3 0.9 - 3.2 x10(3)/mcL Monocytes % 8.9 % Monocyte Abs 0.8 0.3 - 0.9 x10(3)/mcL Eosinophils % 1.0 % Eosinophils Abs 0.1 0.0 - 0.4 x10(3)/mcL Basophils % 0.1 % Basophils Abs 0.0 0.0 - 0.1 x10(3)/mcL Immature Gran % 0.90 % Mackenzie Gran Abs 0.08 (H) 0.00 - 0.04 x10(3)/mcL RADIOGRAPHIC EVALUATION As above PATHOLOGY EVALUATION As above ASSESSMENT: Shanita Francisco is a 72 y.o. female whom I follow for thrombocytopenia. He was initiallydetected in June 2017, when her platelets were 11. This was roughly 1-2 weeks after receiving the flu shot, which has been the only potential trigger identified. Ms Francisco' platelets are improved today (111). She has no evidence of bleeding. We discussed that her platelet counts can drop again in the next 1-2 weeks and therefore we will need to see what her CBC is in 2 weeks. If her platelets remain normal in 2 weeks, then she can have her CBC checked everyfew weeks. She is trying to consolidate her care and would prefer to limit doctor visits if possible. For her ITP, we will see her in 2 weeks to recheck a CBC. We can make the subsequent follow up plan based on how whether there is a sustained response to her steroids. RTC 2 weeks with CBC to monitor for sustained response. Mela Munoz MD 04/28/2018 * Mil Jade MD - 04/28/2018 9:30 AM EDT Hematology Staff Addendum I have seen and examined the patient, as well as reviewed the relevant clinical, laboratory and radiological data with Hematology medical team today. Please refer to comprehensive progress note from today, with which I concur, for complete details of our encounter with this patient. I have reviewedand endorse the plan as outlined and have made any additions/corrections below. 72F w/ ITP, who was started on Dex 40 x 4 days last week for dropping counts and concern for worsening. We felt this approach would offer instant improvement in counts, with limited side effects. I felt she was at relatively low risk for bleeding. Platelets have responded well. Today we discussed the variable length of this treatment, where somepeople require further treatment rather quickly, while others can be treatment free for years (40%). We will continue to monitor her closely for recurrence in the short term, and then stretch out appts. For convenience, pt plans on transitioning Heme care to [facility] once stable. Mil Jade MD Pager [phone] documented in this encounter Plan of Treatment Upcoming Encounters Date Type Department Care Team (Late st Contact Info) Description 02/22/2024 1:00 PM EDT Office Visit Hematology/Oncology at [address] [address] Carrie Bruno MD [facility] DR HEMATOLOGY/[place] [address] Oliva Mccabe APRN [facility] HEMATOLOGY/[place] [address] 09/11/2024 1:00 PM EST Office Visit Dermatology at [place] [address] [place] [address] Lizeth Hallman MD [facility] [place] [address] documented as of this encounter Visit Diagnoses Diagnosis Chronic ITP (idiopathic thrombocytopenia) Immune thrombocytopenic purpura documented in this encounter Care Teams Thermoplastic Technician Relationship Specialty Start Date End Date Catracho Vernon MD [address] [place] [address] PCP - General Family Medicine 04/21/18 documented as of this encounter
--- OUTSIDE RECORDS SUMMARY | 2024-02-21 01:31 | XMS_ITS | Encounter Summary ---
Author Organization [facility] [place] [address] Care Team Providers Care Running Rigger Name Role Phone Amelia Avina ABDULLAHI Primary Care Provider [phone] Reason for Visit * Reason Comments Skin Check Encounter Details Date Type Department Care Team (Late st Contact Info) Description 04/29/2015 3:15 PM EDT Office Visit Dermatology at [address] [place] [address] Ajay Weiss MD [address] [place] [address] [place] [address] Nevus Discharge Disposition: Home Social History Tobacco Use Types Packs/Day Years Used Date Smoking Tobacco: Never Sex and Gender Information Value Date Recorded Sex Assigned at Not on file Gender Identity Female 08/21/2020 5:05 PM EST Sexual Orientation Not on file documented as of this encounter Patient Instructions * Patient Instructions* Chanel Platt LPN - 04/29/2015 3:27 PM EDT [facility] Actinic Keratosis: After Your Visit Your Care Instructions Actinic keratosis is a skin growth caused by sun damage. It can turn into skin cancer, but this isn't common. Actinic keratoses, also called solar keratoses, are small red, brown, or skin-colored scaly patches. They are most common on the face, neck, hands, and forearms. Your doctor can remove these growths by freezing or scraping them off or by putting medicines on them. Follow-up care is a perales part of your treatment and safety. Be sure to make and go to all appointments, and call your doctor if you are having problems. It's also a good idea to know your test resultsand keep a list of the medicines you take. How can you care for yourself at home? ?? If your doctor removes the growth, clean the area with soap and water 2 times a day unless your doctor gives you different instructions. Don't use hydrogen peroxide or alcohol, which can slow healing. ?? You may cover the wound with a thin layer of petroleum jelly, such as Vaseline, and a nonstick bandage. To prevent actinic keratosis ?? Always wear sunscreen on exposed skin. Make sure the sunscreen blocks ultraviolet rays (both UVAand UVB) and has a sun protection factor (SPF) of at least 15. Use it every day, even when it is cloudy. Some doctors may recommend a higher SPF, such as 30. ?? Wear long sleeves, a hat, and pants if you are going to be outdoors for a long time. ?? Avoid the sun between 10 a.m. and 4 p.m., the peak time for UV rays. ?? Do not use tanning booths or sunlamps. When should you call for help? Watch closely for changes in your health, and be sure to contact your doctor if: ?? The areas that were treated are red, drain pus, or have red streaks leading from them. ?? You see other growths that do not go away. ?? You do not get better as expected. Where can you learn more? Visit our health information library at [email or web address] You can also view health information on [employer], your personal patient account. Log in or sign up today. Enter L364 in the search box to learn more about Actinic Keratosis: After Your Visit. ?? [id number] [employer]. Care instructions adapted under license by [facility]. This care instruction is for use with your licensed healthcare professional. If you have questions about a medical condition or this instruction, always ask your healthcare professional. [employer] disclaims any warranty or liability for your use of this information. Content Version: 10.4.927316; Current as of: February 28, 2014 documented in this encounter Progress Notes * Ajay Weiss MD - 04/29/2015 3:55 PM EDT Problem: Skin check. Shanita is a 69-year-old woman who would like to have some skin lesions checked. She states that she tanned extensively growing up, and there is a family history of melanoma in her sister. She would like to have a general skin checkup today as a baseline. She does now follow sun avoidance precautions. Physical examination reveals a pleasant, 69-year-old woman who has blue eyes and very fair skin. She has numerous freckles and ephelides of the upper chest and back, and [id number] solar elastotic damage as well. Fortunately, careful examination of the head and neck, chest, back, hands, arms, forearms, thighs, and calves is benign. She has no evidence of any malignant lesions. Assessment and Plan: Benign skin examination. a. Patient reassured about benign skin examination. b. Reinforced sun avoidance precautions. c. Discussed recognition of skin cancer. d. I recommended I see her on an every two- to three-year basis for routine skin checkups. This is in part because of her extensive history of sun damage and the family history of melanoma in her sister. COPY: Amelia Avina A.P.R.N. documented in this encounter Plan of Treatment Upcoming Encounters Date Type Department Care Team (Late st Contact Info) Description 02/22/2024 1:00 PM EDT Office Visit Hematology/Oncology at [address] [address] Carrie Bruno MD [facility] HEMATOLOGY/[place] [address] Oliva Mccabe, ABDULLAHI [facility] HEMATOLOGY/[place] [address] 09/11/2024 1:00 PM EST Office Visit Dermatology at [facility] [address] [place] [address] Lizeth Hallman MD [facility] [place] [address] documented as of this encounter Visit Diagnoses Diagnosis Nevus Benign neoplasm of skin, site unspecified documented in this encounter Care Teams Running Rigger Relationship Specialty Start Date End Date Amelia Avina APRN [address] [place] [address] PCP - General 01/16/15 06/13/17 documented as of this encounter
--- OUTSIDE RECORDS SUMMARY | 2024-02-21 01:31 | XMS_ITS | Encounter Summary ---
Author Organization [facility] Address [facility] [place] [address] Care Team Providers Care Clerical Office Worker Name Role Phone Catracho Vernon MD Primary Care Provider [phone] Encounter Details Date Type Department Care Team (Late st Contact Info) Description 05/12/2018 12:30 PM EDT Office Visit Hematology and Oncology at [facility] [place] [address] Mil Jade MD [facility] [place] [address] Chronic ITP (idiopathic thrombocytopenia) Social History Tobacco Use Types Packs/Day Years Used Date Smoking Tobacco: Never Smokeless Tobacco: Never Sex and Gender Information Value Date Recorded Sex Assigned at Not on file Gender Identity Female 08/21/2020 5:05 PM EST Sexual Orientation Not on file documented as of this encounter Last Filed Vital Signs Vital Sign Reading Time Taken Comments Blood Pressure 165/77 05/12/2018 11:59 AM EDT Pulse 63 05/12/2018 11:59 AM EDT Temperature 36 ??C (96.8 ??F) 05/12/2018 11:59 AM EDT Respiratory Rate 17 05/12/2018 11:59 AM EDT Oxygen Saturation 98% 05/12/2018 11:59 AM EDT Inhaled Oxygen Concentration - - Weight 70.9 kg (156 lb 3.2 oz) 05/12/2018 11:59 AM EDT Height 160.5 cm (5' 3.19) 05/12/2018 11:59 AM E DT Body Mass Index 27.5 05/12/2018 11:59 AM EDT documented in this encounter Progress Notes * Mil Jade MD - 05/12/2018 12:30 PM EDT OUTPATIENT HEMATOLOGY/ ONCOLOGY CONSULTATION HISTORY PRESENT [...] 06/08- ?? 07/08- ?? 09/2017- ?? 09/2017- ?? 04/21- ?? 04/28- (after dexamethasone) ?? HepC/ HIV- negative Treatment Course ?? 06/17- observation ?? 04/2018- Dexamethasone 40mg x 4 days INTERIM HISTORY Shanita returns in follow-up for her thrombocytopenia. She completed Dex 40 x 4 days about 2.5 weeks ago. Feeling well. No bruising or bleeding. Energy is returning (after being down after Dex). No fevers/ chills/ night sweat. SOCIAL HISTORY- reviewed with significant changes noted , never smoker Rare ETOH Has children who work in [employer] MEDICATIONS AND ALLERGIES- reviewed at this visit Medications 05/12/18 2225 Medication Sig Taking? ergocalciferol, vitamin D2, (VITAMIN D ORAL) Take by mouth. Yes ubidecarenone (CO Q-10 ORAL) Take by mouth. Yes PAST MEDICAL HISTORY- reviewed Patient Active Problem List Diagnosis Code ??? Healthcare maintenance Z00.00 ??? Nevus D22.9 ??? Thrombocytopenia D69.6 FAMILY HISTORY- reviewed No ITP or hematologic disorders COMPREHENSIVE REVIEW OF SYSTEMS Besides what is mentioned in the HPI, all other systems are negative PHYSICAL EXAMINATION Most Recent Vitals: 05/12/18 1159 BP: 165/77 Pulse: 63 Resp: 17 Temp: 36 ??C (96.8 ??F) SpO2: 98% NAD, pleasant Heart is [...] visit (from the past 24 hour(s)). Plts= 84 RADIOGRAPHIC EVALUATION As above PATHOLOGY EVALUATION As [...] 40 x 4 days, with good response. Pts= 84 today, as I suspect they will fall back to her baseline of 50-90 after the Dex wears off. Dex was meant to prevent further fall from 31 into a dangerous level. I do not think Shanita needs more treatment at this time. I expect her to be thrombocytopenic, but will only need treatment if plts <30. I would recommend checking a CBC every few months or if she develops easy bruising. Shanita would like to transfer her ITP care closer to home, so I will set her up with a game preserve manager in [facility]. Mil Jade MD documented in this encounter Plan of Treatment Upcoming Encounters Date Type Department Care Team (Late st Contact Info) Description 02/22/2024 1:00 PM EDT Office Visit Hematology/Oncology at [address] [address] Carrie Bruno MD [facility] DR HEMATOLOGY/[place] [address] Oliva Mccabe, BISQUE [employer]ER [facility] HEMATOLOGY/[place] [address] 09/11/2024 1:00 PM EST Office Visit Dermatology at [facility] [address] [address] Lizeth Hallman MD [facility] [place] [address] documented as of this encounter Visit Diagnoses Diagnosis Chronic ITP (idiopathic thrombocytopenia) Immune thrombocytopenic purpura documented in this encounter Care Teams Clerical Office Worker Relationship Specialty Start Date End Date Catracho Vernon [place] [address] PCP - General Family Medicine 04/21/18 documented as of this encounter
--- OUTSIDE RECORDS SUMMARY | 2024-02-21 01:31 | XMS_ITS | Encounter Summary ---
Author Organization [facility] Address [facility] [place] [address] Care Team Providers Care Night Worker Name Role Phone Catracho Vernon MD Primary Care Provider [phone] Reason for Visit * Reason Comments Follow-up Encounter Details Date Type Department Care Team ([facility] st Contact Info) Description 04/21/2018 1:00 PM EDT Office Visit Hematology and Oncology at [facility] [place] [address] [facility] [place] [address] Thrombocytopenia Social History Tobacco Use Types Packs/Day Years Used Date Smoking Tobacco: Never Smokeless Tobacco: Never Sex and Gender Information Value Date Recorded Sex Assigned at Not on file Gender Identity Female 08/21/2020 5:05 PM EST Sexual Orientation Not on file documented as of this encounter Last Filed Vital Signs Vital Sign Reading Time Taken Comments Blood Pressure 167/75 04/21/2018 1:06 PM EDT Pulse 66 04/21/2018 1:06 PM EDT Temperature 36.8 ??C (98.2 ??F) 04/21/2018 1:06 PM ED T Respiratory Rate 16 04/21/2018 1:06 PM EDT Oxygen Saturation 98% 04/21/2018 1:06 PM EDT Inhaled Oxygen Concentration - - Weight 71.8 kg (158 lb 3.2 oz) 04/21/2018 1:06 P M EDT Height 160 cm (5' 2.99) 04/21/2018 1:06 PM EDT Body Mass Index 28.03 04/21/2018 1:06 PM EDT documented in this encounter Progress Notes * Mil Jade MD - 04/21/2018 1:00 PM EDT OUTPATIENT HEMATOLOGY/ ONCOLOGY CONSULTATION HISTORY [...] ?? 07/08- ?? 09/2017- ?? 09/2017- ?? HepC/ HIV- negative Treatment Course ?? 06/17- observation ?? 04/2018- Dexamethasone 40mg x 4 days INTERIM HISTORY Shanita returns in follow-up for her thrombocytopenia. She called in for a sooner appt when her plts were found to be 50 at her PCP office. No bruising/ bleeding. Other cell lines normal. No other medication changes or recent illnesses. SOCIAL HISTORY- reviewed with significant changes noted , never smoker Rare ETOH Has children who work in [employer] MEDICATIONS AND ALLERGIES- reviewed at this visit Medications 04/21/18 1306 Medication Sig Taking? dexamethasone (DECADRON) 4 mg Tablet Take 10 tablets by mouth daily for 4 days. PAST MEDICAL HISTORY- reviewed Patient Active Problem List Diagnosis Code ??? Healthcare maintenance Z00.00 ??? Nevus D22.9 ??? Thrombocytopenia D69.6 FAMILY HISTORY- reviewed No ITP or hematologic disorders COMPREHENSIVE REVIEW OF SYSTEMS Besides what is mentioned in the HPI, all other systems are negative PHYSICAL EXAMINATION Most Recent Vitals: 04/21/18 1306 BP: 167/75 Pulse: 66 Resp: 16 Temp: 36.8 ??C (98.2 ??F) SpO2: 98% NAD, pleasant Heart is [...] visit (from the past 24 hour(s)). Plts= 33 RADIOGRAPHIC EVALUATION As above PATHOLOGY EVALUATION As above ASSESSMENT: Shanita Francisco is a 72 y.o. female whom I follow for thrombocytopenia. He was initiallydetected in June 2017, when her platelets were 11. This was roughly 1-2 weeks after receiving the flu shot, which has been the only potential trigger identified. Ms Francisco' platelets are lower today (33). She has no evidence of bleeidng. We reviewed that typically the threshold for treatment is 30, so it would be reasonable to start treatment, so as to prevent the platelets from going lower. I would recommend a short course of Dexamethasone 40mg x 4 days. Will f/u with her next week to ensure response. Mil Jade MD Pager: [phone] 04/25/2018 documented in this encounter Plan of Treatment Upcoming Encounters Date Type Department Care Team (Late st Contact Info) Description 02/22/2024 1:00 PM EDT Office Visit Hematology/Oncology at [address] [phone] Carrie Bruno MD [facility] DR HEMATOLOGY/[place] [address] Oliva Mccabe APRN [facility] HEMATOLOGY/[place] [address] 09/11/2024 1:00 PM EST Office Visit Dermatology at [facility] [address] [place] [address] Lizeth Hallman MD [facility] [place] [address] Scheduled Orders Name Type Priority Associated Diagnoses Orde r Schedule CBC (with Diff) Lab Routine Thrombocytopenia Expected: 04/21/2018 (Approximate), Expires: 04/21/2019 documented as of this encounter Visit Diagnoses Diagnosis Thrombocytopenia Thrombocytopenia, unspecified documented in this encounter Care Teams Night Worker Relationship Specialty Start Date End Date Catracho Vernon MD [address] [place] [address] PCP - General Family Medicine 04/21/18 documented as of this encounter
--- OUTSIDE RECORDS SUMMARY | 2024-02-21 01:31 | XMS_ITS | Encounter Summary ---
Author Organization [facility] Address [facility] [place] [address] Care Team Providers Care Flue Blower Name Role Phone Sonali Guzman MD Primary Care Provider [phone] Encounter Details Date Type Department Care Team (Late st Contact Info) Description 10/21/2017 2:30 PM EDT Office Visit Hematology [place] [address] Mil Jade MD [facility] [place] [address] Thrombocytopenia Social History Tobacco Use Types Packs/Day Years Used Date Smoking Tobacco: Never Smokeless Tobacco: Never Sex and Gender Information Value Date Recorded Sex Assigned at Not on file Gender Identity Female 08/21/2020 5:05 PM EST Sexual Orientation Not on file documented as of this encounter Last Filed Vital Signs Vital Sign Reading Time Taken Comments Blood Pressure 171/82 10/21/2017 2:34 PM EDT Pulse 75 10/21/2017 2:30 PM EDT Temperature 36.7 ??C (98.1 ??F) 10/21/2017 2:30 PM ED T Respiratory Rate 16 10/21/2017 2:30 PM EDT Oxygen Saturation 96% 10/21/2017 2:30 PM EDT Inhaled Oxygen Concentration - - Weight 70.8 kg (156 lb) 10/21/2017 2:34 PM EDT Height 159.8 cm (5' 2.91) 10/21/2017 2:34 PM ED T Body Mass Index 27.71 10/21/2017 2:34 PM EDT documented in this encounter Progress Notes * Mil Jade MD - 10/21/2017 2:30 PM EDT OUTPATIENT HEMATOLOGY/ ONCOLOGY CONSULTATION HISTORY [...] ?? 2014- ?? 2017- ?? ~06/01- ? 06/08- ?? 07/08- ?? 09/2017- ?? 09/2017- 111 ?? HepC/ HIV- negative Treatment Course ?? 06/17- observation INTERIM HISTORY Shanita returns in follow-up for her thrombocytopenia. Since her last visit, she has been well. She denies any bleeding episodes or easy bruising. She has had several blood draws, and her platelets have been trending up. Most recently, her platelet level was 111. Her red blood cells and white blood cells continue to be normal. No fevers, chills, night sweats, infections. SOCIAL HISTORY- reviewed with significant changes noted , never smoker Rare ETOH Has children who work in [employer] MEDICATIONS AND ALLERGIES- reviewed at this visit Medications 10/21/17 1430 Medication Sig Taking? atovaquone-proguanil (MALARONE) 250-100 mg per tablet Take 1 tablet by mouth daily. Start 1 day before travel to [facility]; daily there and daily for 7 days after. Yes CIS Free Text Med - Havrix 1440UNIT/1ML, IM, X 1 Yes PAST MEDICAL HISTORY- reviewed Patient Active Problem List Diagnosis Code ??? Healthcare maintenance Z00.00 ??? Nevus D22.9 ??? Thrombocytopenia D69.6 FAMILY HISTORY- reviewed No ITP or hematologic disorders COMPREHENSIVE REVIEW OF SYSTEMS Besides what is mentioned in the HPI, all other systems are negative PHYSICAL EXAMINATION Most Recent Vitals: 10/21/17 1434 BP: 171/82 Pulse: Resp: Temp: SpO2: NAD, pleasant Heart is RRR Lung sounds are CTAB Abd is soft, NT/ ND, there is no palpable organomegally Lymphadenopathy is not appreciated Joints are not swollen or inflamed There are no gross neurologic deficits Affect and mood are appropriate for the situation There are no appreciable rashes LABORATORY EVALUATION No results found for this or any previous visit (from the past 24 hour(s)). Reviewed CBC from outside hospital. RADIOGRAPHIC EVALUATION As above PATHOLOGY EVALUATION As above ASSESSMENT: Shanita Francisco is a 72 y.o. female whom I follow for thrombocytopenia. He was initiallydetected in June 2017, when her platelets were 11. This was roughly 1-2 weeks after receiving the flu shot, which has been the only potential trigger identified. Ms. Francisco's platelets continue to improve. The working diagnosis is ITP, that was triggered by theflu shot. Her platelet recovery is unusual however, because it has been so slow. If this were an isolated event, and I would have expected the platelets to have normalized much faster. Therefore, I suspect that there is a component of ongoing immune mediated platelet destruction, for which the patie nt is well compensated. In the future, I expect Ms. Diehl to have mild thrombocytopenia due to chronic ITP. This can be monitored intermittently with blood checks. Treatment would only be initiated if the platelets fall below 30. Treatment would be prednisone at 1 mg/kg daily dosing. The question comes up about whether to get the flu shot again. I would recommend against the flu shot, as it would most likely trigger another acute ITP episode. At the same time, we run the risk of her getting the flu infection, which would likely trigger the ITP in addition to its other effects. Ms. Francisco is aware of these risks. Mil Jade MD Pager: [phone] 10/21/2017 documented in this encounter Plan of Treatment Upcoming Encounters Date Type Department Care Team (Late st Contact Info) Description 02/22/2024 1:00 PM EDT Office Visit Hematology/Oncology at [address] [address] Carrie Bruno MD [facility] DR HEMATOLOGY/[place] [address] Oliva Mccabe APRN [facility] HEMATOLOGY/[place] [address] 09/11/2024 1:00 PM EST Office Visit Dermatology at [address] [place] [address] Lizeth Hallman MD [facility] [place] [address] Scheduled Orders Name Type Priority Associated Diagnoses Orde r Schedule CBC (with Diff) Lab Routine Thrombocytopenia Expected: 10/18/2017 (Approximate), Expires: 10/18/2018 documented as of this encounter Visit Diagnoses Diagnosis Thrombocytopenia Thrombocytopenia, unspecified documented in this encounter Care Teams Flue Blower Relationship Specialty Start Date End Date Snoali Guzman MD [address] [place] [address] PCP - General Family Medicine 07/08/17 04/20/18 documented as of this encounter
--- OUTSIDE RECORDS SUMMARY | 2024-02-21 01:31 | XMS_ITS | Encounter Summary ---
Author Organization [facility] Address [facility] [place] [address] Care Team Providers Care Cash Van Salesperson Name Role Phone Catracho Vernon MD Primary Care Provider [phone] Encounter Details Date Type Department Care Team (Latest Contact Info) Description 05/12/2018 10:55 AM EDT - 05/12/2018 11:59 PM EDT Hospital Encounter Hematology [place] [phone] Chronic ITP (idiopathic thrombocytopenia); Thrombocytopenia Discharge Disposition: Home Social History Tobacco [...] ubidecarenone (CO Q-10 ORAL) Take by mouth. documented as of this encounter Plan of Treatment Upcoming Encounters Date Type Department Care Team (Late st Contact Info) Description 02/22/2024 1:00 PM EDT Office Visit Hematology/Oncology at [address] [phone] Carrie Bruno MD [facility] DR HEMATOLOGY/[place] [address] Oliva Mccabe APRN [facility] HEMATOLOGY/[place] [address] 09/11/2024 1:00 PM EST Office Visit Dermatology at [facility] [address] [place] [phone] Lizeth Hallman MD [facility] DR [facility] [address] Scheduled Orders Name Type Priority Associated Diagnoses Orde r Schedule CBC (with Diff) Lab Routine Thrombocytopenia 1 Occurrences starting 05/12/2018 until 05/12/2018 CBC (with Diff) Lab Routine Thrombocytopenia 1 Occurrences starting 05/12/2018 until 05/12/2018 documented as of this encounter Procedures Procedure Name Priority Date/Time Associated Diagnosis Comments HEMOGRAM Routine 05/12/2018 11:03 AM EDT Chronic ITP (idiopathic thrombocytopenia) DIFFERENTIAL, AUTOMATED Routine 05/12/2018 11:03 AM EDT Chronic ITP (idiopathic thrombocytopenia) CBC (WITH DIFF) Routine 05/12/2018 11:03 AM EDT Chronic ITP (idiopathic thrombocytopenia) documented in this encounter Results * Differential, Automated (05/12/2018 11:03 AM EDT) Neutrophils % 63.5 % [facility] Neutr Abs (ANC) 2.91 1.70 - 6.10 x10(3)/[facility] Lymphocytes % 24.5 % [facility] Lymphocytes Abs 1.1 0.9 - 3.2 x10(3)/[facility] Monocytes % 9.2 % [facility] Monocyte Abs 0.4 0.3 - 0.9 x10(3)/[facility] Eosinophils % 1.3 % [facility] Eosinophils Abs 0.1 0.0 - 0.4 x10(3)/[facility] Basophils % 1.3 % [facility] Basophils Abs 0.1 0.0 - 0.1 x10(3)/[facility] Immature Gran % 0.20 % [facility] Comment: Immature granulocytes(IG's)percentage and absolute count will include metamyelocytes, myelocytes, and promyelocytes. Blood smears from CBCs yielding IG's will be scanned manually for concordance. If this scan disagrees with the automated IG or if promyelocytes are noted, a manual differential will be performed. Mackenzie Gran Abs 0.01 0.00 - 0.04 x10(3)/[facility] Blood specimen (specimen) 05/12/2018 11:03 AM EDT 05/12/2018 11:14 AM EDT Narrative Resulting Agency Comment Spec In Lab Mil Jade MD HEMATOLOGY ORDERAB LES Performing Organization Address City/State/[facility] Co de Phone Number [facility] [place] [address] * (ABNORMAL) Hemogram (05/12/2018 11:03 AM EDT) WBC 4.6 4.0 - 9.5 x10(3)/[facility] RBC 4.68 4.00 - 5.21 x10(6)/[facility] Hemoglobin 14.0 11.7 - 15.5 gm/dL [facility] Hematocrit 42.2 35.7 - 45.8 % [facility] MCV 90.2 82.6 - 94.4 fL [facility] MCH 29.9 27.1 - 32.0 pg [facility] MCHC 33.2 31.7 - 35.0 gm/dL [facility] Platelets 84(L) 145 - 357 x10(3)/[facility] RDWSD 40.7 37.0 - 46.0 fL [facility] RDWCV 12.6 11.5 - 14.1 % [facility] MPV 11.4 7.6 - 12.9 fL [facility] nRBC % Auto 0.0 % [facility] nRBC Abs Auto 0.000 0.000 - 0.000 x10(3)/mcL [facility] Blood specimen (specimen) 05/12/2018 11:03 AM EDT 05/12/2018 11:14 AM EDT Narrative Resulting Agency Comment Spec In Lab Mil Jade MD HEMATOLOGY ORDERAB LES [facility] [place] [address] documented in this encounter Visit Diagnoses Diagnosis Chronic ITP (idiopathic thrombocytopenia) Immune thrombocytopenic purpura Thrombocytopenia Thrombocytopenia, unspecified documented in this encounter Care Teams Cash Van Salesperson Relationship Specialty Start Date End Date Catracho Vernon MD [facility] [place] [phone] PCP - General Family Medicine 04/21/18 documented as of this encounter
--- OUTSIDE RECORDS SUMMARY | 2024-02-21 01:31 | XMS_ITS | Encounter Summary ---
Author Organization [facility] Address [facility] [place] [address] Care Team Providers Care Picker Tender Name Role Phone Catracho Vernon MD Primary Care Provider [phone] Encounter Details Date Type Department Care Team (Late st Contact Info) Description 04/22/2018 Telephone Hematology [place] [address] Tami Pyle MD [facility] DR HEMATOLOGY/[place] [address] Social History Tobacco Use Types Packs/Day Years Used Date Smoking Tobacco: Never Smokeless Tobacco: Never Sex and Gender Information Value Date Recorded Sex Assigned at Not on file Gender Identity Female 08/21/2020 5:05 PM EST Sexual Orientation Not on file documented as of this encounter Miscellaneous Notes * Telephone Encounter - Tami Ashley MD - 04/22/2018 10:51 AM EDT Patient called that she went to [facility] pick[facility] a prescription for dexamethasone 40 mg PO daily x4 days forITP flare that was prescribed yesterday by Dr. Jade at her [facility] in [facility] but they don't have record of the prescription. Review of records show it was sent to [facility] pharmacy instead. Will re-send the [facility] to [facility] so she can start treatment today. I asked her to call back if she has any further difficulty obtaining it. Tami Gathany, MD MPH Hematology/Oncology Fellow Pager [phone] documented in this encounter Plan of Treatment Upcoming Encounters Date Type Department Care Team (Late st Contact Info) Description 02/22/2024 1:00 PM EDT Office Visit Hematology/Oncology at [address] [address] Carrie Bruno MD [facility] DR HEMATOLOGY/[place] [address] Oliva Mccabe APRN [facility] DR HEMATOLOGY/[place] [address] 09/11/2024 1:00 PM EST Office Visit Dermatology at [facility] [address] [place] [address] Lizeth Hallman MD [facility] DR [place] [address] documented as of this encounter Visit Diagnoses Diagnosis Acute ITP Immune thrombocytopenic purpura documented in this encounter Care Teams Picker Tender Relationship Specialty Start Date End Date Catracho Vernon MD [facility] [place] [address] PCP - General Family Medicine 04/21/18 documented as of this encounter
--- OUTSIDE RECORDS SUMMARY | 2024-02-21 01:31 | XMS_ITS | Encounter Summary ---
Author Organization [facility] Address [facility] [place] [address] Care Team Providers Care Buttermaker Name Role Phone Sonali Guzman MD Primary Care Provider [phone] Reason for Visit * Consultation (Routine) - Closed Specialty Diagnoses / Procedures Referred By Contac t Referred To Contact Hematology and Oncology Diagnoses Thrombocytopenia Sonali Guzman MD [address] [place] [address] [facility] Hem Onc [address] [place] [address] Referral ID Status Reason Start Date Expiration Date V isits Requested Visits Authorized [id number] Closed Consult, Test & Treat Connection [facility] 06/14/2017 06/14/2018 1 1 Encounter Details Date Type Department Care Team (Late st Contact Info) Description 07/08/2017 3:30 PM EST Office Visit Hematology [place] [address] Mil Jade MD [facility] [place] [address] Thrombocytopenia Social History Tobacco Use Types Packs/Day Years Used Date Smoking Tobacco: Never Smokeless Tobacco: Never Sex and Gender Information Value Date Recorded Sex Assigned at Not on file Gender Identity Female 08/21/2020 5:05 PM EST Sexual Orientation Not on file documented as of this encounter Last Filed Vital Signs Vital Sign Reading Time Taken Comments Blood Pressure 147/82 07/08/2017 3:18 PM EST Pulse 72 07/08/2017 3:18 PM EST Temperature 36.4 ??C (97.5 ??F) 07/08/2017 3:18 PM ES T Respiratory Rate 18 07/08/2017 3:18 PM EST Oxygen Saturation 96% 07/08/2017 3:18 PM EST Inhaled Oxygen Concentration - - Weight 70.4 kg (155 lb 3.2 oz) 07/08/2017 3:18 P M EST Height 160.3 cm (5' 3.11) 07/08/2017 3:18 PM ES T Body Mass Index 27.4 07/08/2017 3:18 PM EST documented in this encounter Progress Notes * Mil Jdae MD - 07/08/2017 3:30 PM EST OUTPATIENT HEMATOLOGY/ ONCOLOGY CONSULTATION HISTORY PRESENT ILLNESS This patient is a 71 y.o. female presenting for evaluation of thrombocytopenia, [...] 2017- ?? ~06/01- ?? 06/03- ?? 06/08- ? HepC/ HIV- negative Treatment Course ?? 06/17- observation INTERIM HISTORY See presentation SOCIAL HISTORY- reviewed with significant changes noted , never smoker Rare ETOH Has children who work in [employer] MEDICATIONS AND ALLERGIES- reviewed at this visit Medications 07/08/17 6355 Medication Sig Taking? predniSONE (DELTASONE) 20 mg Tablet Take 3 tablets by mouth daily. atovaquone-proguanil (MALARONE) 250-100 mg per tablet Take 1 tablet by mouth daily. Start 1 day before travel to [facility]; daily there and daily for 7 days after. Patient not taking: Reported on 07/05/2017 CIS Free Text Med - Havrix 1440UNIT/1ML, IM, X 1 Patient not taking: No sig reported PAST MEDICAL HISTORY- reviewed Patient Active Problem List Diagnosis Code ??? Healthcare maintenance Z00.00 ??? Nevus D22.9 ??? Thrombocytopenia D69.6 FAMILY HISTORY- reviewed No ITP or hematologic disorders COMPREHENSIVE REVIEW OF SYSTEMS Besides what is mentioned in the HPI, all other systems are negative PHYSICAL EXAMINATION Most Recent Vitals: 07/08/17 1518 BP: 147/82 Pulse: 72 Resp: 18 Temp: 36.4 ??C (97.5 ??F) SpO2: 96% NAD, pleasant Heart is RRR Lung sounds [...] previous visit (from the past 24 hour(s)). RADIOGRAPHIC EVALUATION As above PATHOLOGY EVALUATION As above ASSESSMENT: Shanita Francisco is a 71 y.o. female presents with pancytopenia that was asymptomatic (and even went through a tooth extraction with plts= 11, which was unknown at the time). The rest of her CBC is completely normal. She has never had thrombocytopenia before, but perhaps her flu shot was the trigger. Her plt count has been recovering, but has not normalized. 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 I believe, in this case, the trigger was likely her flu shot. I expect her plts to continue to rise. I would like to check H. Pylori as well. I will check platelets on 07/18, to ensure stability prior to her trip, which I do not think needs to be interrupted or changed. We discussed signs and symptoms to look for. I also gave a script for Prednisone x 2 weeks, [place], in case she notices bruising/ bleeding. I think she should still be seen in an ED there, if symptoms arise, but I would also like to facilitate her getting treatment. I will see her back in 3 months. Mil Jade MD Pager: [phone] 07/12/2017 documented in this encounter Plan of Treatment Upcoming Encounters Date Type Department Care Team (Late st Contact Info) Description 02/22/2024 1:00 PM EDT Office Visit Hematology/Oncology at [address] [address] Carrie Bruno MD [facility] DR HEMATOLOGY/[place] [address] Oliva Mccabe APRN [facility] HEMATOLOGY/[place] [address] 09/11/2024 1:00 PM EST Office Visit Dermatology at [place] [address] [place] [address] Lizeth Hallman MD [facility] [place] [address] documented as of this encounter Results * (ABNORMAL) Platelet count (07/08/2017 2:35 PM EST) Platelets 67(L) 145 - 357 x10(3)/mc L [facility] Plat Immature % 9.5(H) 0.0 - 7.4 % [facility] Comment: Limitation of the Immature Platelet Fraction (IPF)-May be less reliable when the platelet count is less than 93o984/uL due to statistical imprecision. The IPF value provides an assessment of the Bone Marrow production status. ??It is useful in differentiating Thrombocytopenia caused by platelet destruction/consumption versus decreased production. It also helps to determine the imminent release of platelets and can be therefore a helpful parameter in Chemotherapy and Bone marrow transplant patients. ELEVATED IPF value: ?? When the bone marrow is in a state of over production such as when increased destruction and consumption are the underlying issue. ?? When the marrow is recovering post chemotherapy or bone marrow transplant. LOW to NORMAL IPF value: ?? When the bone marrow in not responding and is in a decreased state of production. References: [employer] The Clinical Value of the Immature Platelet Fraction (IPF) in Cell Recovery Document Number 10-1143 12/2010 [employer] The Role of the Immature Platelet Fraction (IPF) in the Differential Diagnosis of Thrombocytopenia, Document [id number] V05 P012/12 Blood specimen (specimen) 07/08/2017 2:35 PM EST 07/08/2017 2:48 PM EST Narrative Resulting Agency Comment Spec In Lab Mil Jade MD HEMATOLOGY ORDERAB LES Performing Organization Address City/State/[facility] Co de Phone Number [facility] [address] documented in this encounter Visit Diagnoses Diagnosis Thrombocytopenia Thrombocytopenia, unspecified documented in this encounter Care Teams Buttermaker Relationship Specialty Start Date End Date Sonali Guzman MD [address] [place] [address] PCP - General Family Medicine 07/08/17 04/20/18 documented as of this encounter
--- OUTSIDE RECORDS SUMMARY | 2024-02-21 01:31 | XMS_ITS | Encounter Summary ---
Author Organization [facility] [place] [address] Care Team Providers Care Manager Investment Banking Name Role Phone Catracho Vernon MD Primary Care Provider [phone] Encounter Details Date Type Department Care Team (Latest Contact Info) Description 04/28/2018 8:25 AM EDT - 04/28/2018 11:59 PM EDT Hospital Encounter [place] [address] Thrombocytopenia Discharge Disposition: Home Social History Tobacco [...] PM EDT Office Visit Hematology/Oncology at [address] [address] Carrie Bruno MD [facility] DR HEMATOLOGY/[place] [address] Oliva Mccabe APRN [facility] HEMATOLOGY/[place] [address] 09/11/2024 1:00 PM EST Office Visit Dermatology at [facility] [address] [place] [phone] Lizeth Hallman MD [facility] [place] [address] documented as of this encounter Procedures Procedure Name Priority Date/Time Associated Diagnosis Comments HEMOGRAM Routine 04/28/2018 8:34 AM EDT Thrombocytopenia DIFFERENTIAL, AUTOMATED Routine 04/28/2018 8:34 AM EDT Thrombocytopenia CBC (WITH DIFF) Routine 04/28/2018 8:34 AM EDT Thrombocytopenia documented in this encounter Results * (ABNORMAL) Differential, Automated (04/28/2018 8:34 AM EDT) Neutrophils % 63.9 % [facility] Neutr Abs (ANC) 5.77 1.70 - 6.10 x10(3)/mc L [facility] Lymphocytes % 25.2 % [facility] Lymphocytes Abs 2.3 0.9 - 3.2 x10(3)/mc L [facility] Monocytes % 8.9 % [facility] Monocyte Abs 0.8 0.3 - 0.9 x10(3)/mc L [facility] Eosinophils % 1.0 % [facility] Eosinophils Abs 0.1 0.0 - 0.4 x10(3)/mc L [facility] Basophils % 0.1 % [facility] Basophils Abs 0.0 0.0 - 0.1 x10(3)/mc L [facility] Immature Gran % 0.90 % [facility] Comment: Immature granulocytes(IG's)percentage and absolute count will include metamyelocytes, myelocytes, and promyelocytes. Blood smears from CBCs yielding IG's will be scanned manually for concordance. If this scan disagrees with the automated IG or if promyelocytes are noted, a manual differential will be performed. Mackenzie Gran Abs 0.08(H) 0.00 - 0.04 x10(3)/mc L [facility] Blood specimen (specimen) 04/28/2018 8:34 AM EDT 04/28/2018 8:38 AM EDT Narrative Resulting Agency Comment Spec In Lab Mil Jade MD HEMATOLOGY ORDERAB LES [facility] [place] [address] * (ABNORMAL) Hemogram (04/28/2018 8:34 AM EDT) WBC 9.0 4.0 - 9.5 x10(3)/[facility] RBC 4.91 4.00 - 5.21 x10(6)/[facility] Hemoglobin 14.9 11.7 - 15.5 gm/dL [facility] Hematocrit 44.4 35.7 - 45.8 % [facility] MCV 90.4 82.6 - 94.4 [facility] MCH 30.3 27.1 - 32.0 pg [facility] MCHC 33.6 31.7 - 35.0 gm/dL [facility] Platelets 111(L) 145 - 357 x10(3)/[facility] RDWSD 41.1 37.0 - 46.0 [facility] RDWCV 12.5 11.5 - 14.1 % [facility] MPV 10.9 7.6 - 12.9 [facility] nRBC % Auto 0.0 % [facility] nRBC Abs Auto 0.000 0.000 - 0.000 x10(3)/[facility] Blood specimen (specimen) 04/28/2018 8:34 AM EDT 04/28/2018 8:38 AM EDT Narrative Resulting Agency Comment Spec In Lab Mil Jade MD HEMATOLOGY ORDERAB LES [facility] [place] [address] documented in this encounter Visit Diagnoses Diagnosis Thrombocytopenia Thrombocytopenia, unspecified documented in this encounter Care Teams Manager Investment Banking Relationship Specialty Start Date End Date Catracho Vernon MD [address] [place] [address] PCP - General Family Medicine 04/21/18 documented as of this encounter
--- OUTSIDE RECORDS SUMMARY | 2024-02-21 01:31 | XMS_ITS | Encounter Summary ---
Author Organization [facility] Address [facility] [place] [address] Care Team Providers Care Home Companion Name Role Phone Elyssa Mcpherson MD Primary Care Provider [phone] Encounter Details Date Type Department Care Team (Late st Contact Info) Description 06/30/2012 1:30 PM EST Office [place] [address] Carrie Marie, [facility] [place] [address] Foreign travel; Healthcare maintenance Discharge Disposition: Home Social History Tobacco Use Types Packs/Day Years Used Date Smoking Tobacco: Never Assessed Sex and Gender Information Value Date Recorded Sex Assigned at Not on file Gender Identity Female 08/21/2020 5:05 PM EST Sexual Orientation Not on file documented as of this encounter Last Filed Vital Signs Vital Sign Reading Time Taken Comments Blood Pressure 152/86 06/30/2012 1:29 PM EST Pulse 74 06/30/2012 1:29 PM EST Temperature - - Respiratory Rate 16 06/30/2012 1:29 PM EST Oxygen Saturation 99% 06/30/2012 1:29 PM EST Inhaled Oxygen Concentration - - Weight - - Height - - Body Mass Index - - documented in this encounter Patient Instructions * Patient Instructions* Carrie Marie RN - 06/30/2012 2:32 PM EST Today, you received the following vaccines: [] TDaP (good for 10 years) [] Hepatitis A* (first dose good for 6 months, need a booster anytime after 6 months) [ [] Yellow fever (good for 10 yrs. Keep your yellow card w/ you when traveling as proof) *Please remember to schedule your follow-up boosters, if indicated. Call us at [phone] to schedule an appointment for these vaccines. Today, you were also prescribed a medication for malaria prevention. [] Malarone - Start taking 1 day prior to travel to malaria risk area. Take daily while there and for 7 more additional days thereafter. Take this medication with food. Also a script for cipro for treatment of diarrhea with a fever. Additional Recommendations/Instructions: We recommend a tuberculin skin test (TST) to screen for tuberculosis exposure about 2 - 3 months after your trip. Call us at [phone] to book this upon your return. Have a great trip! Travel Safely, [email or web address] [phone] documented in this encounter Progress Notes * Brian Martinez MD - 07/01/2012 2:19 PM EST I agree with the recommendations of Gloria Marie after review of her note. * Carrie Marie RN - 06/30/2012 2:01 PM EST Adult Travel Clinic Reason for Visit: Shanita Francisco is a 66 y.o. patient who comes to travel clinic today for pre-travel evaluation, vaccination and traveler's health education. She is acompanied by her . Trip Details: Destination countries (list from first to last): [place], via [place] (1 hour layover) Departure date: Jul 10 Length of trip: 2 weeks Purpose of travel: visiting family, vacation Type of environment: [facility] and [place] Accommodations: lodges and private home. Medical History: Medical problems: none Immunosuppression:none History of adverse vaccine reactions: none History of latex, egg or beesting allergy: none or : no Patient advised to carry all medications in carry on luggage. Travel Health and Safety Issues: A discussion of travel health hazards and safety issues was done, including the following topics: traffic-accidents (alcohol, seatbelts), crime, alcohol related issues, sun exposure/heat illness, Schistosomiasis and other fresh water exposures, rabies and TB. Discussed food and water precautions and patient handout provided. The following strategies were recommended for the management of traveler's diarrhea according to severity: ?? For treatment of mild diarrhea: hydration and over the counter antidiarrheal recommended. ?? For treatment of diarrhea accompanied by fever or systemic illness: hydration and empiric treatment with antibiotic recommended. A prescription for Ciprofloxacin 500 mg twice daily x 3 days given to patient. ?? For severe or bloody diarrhea, or diarrhea accompanied by vomiting: patient advised to seek medical treatment. Vector-borne Disease Prevention Discussed insect bite prevention to reduce risk of malaria, dengue and other insect borne illnesses. Handout given. Malaria Risk: Significant risk of malaria on this itinerary. Discussed malaria chemoprophylaxis and possible sideeffects. Prescription for Malarone was given to the patient. Altitude: This trip does not involve high altitude. Immunization History Administered Date(s) Administered ??? Td 08/01/2002 Ms francisco relates to me a general, philisophical reluctance to vaccinate. Discussed this at length. Will update tdap. Had MMR illnesses Polio-series HAV - today and repeat in 6-12 months HBV - not indicated Discussed flu -declined DIscussed typhoid -declined YF - discussed at length. She is stopping in [place] so [place] will require. Discussed doing medical exemption based on age. She does not feel confident that this is adequate. He son in law is with the state department and he implored her to get vaccine. IDiscussed vaccine precaution . She would like to proceed Rabies - discussed animal avoidance, wound care and need for post-exposure prophylaxis. . Follow-up Recommendations: Get a second hepatitis A vaccine in 6-12 months. Patient advised to call travel clinic if they return from trip with any illness. Time spent in travel counselin min with Vaccine information sheets given. documented in this encounter Plan of Treatment Upcoming Encounters Date Type Department Care Team (Late st Contact Info) Description 02/22/2024 1:00 PM EDT Office Visit Hematology/Oncology at [address] [phone] Carrie Bruno MD [facility] DR HEMATOLOGY/[place] [address] Oliva Mccabe APRN [facility] DR HEMATOLOGY/[place] [address] 09/11/2024 1:00 PM EST Office Visit Dermatology at [facility] [address] [place] [address] Lizeth Hallman MD [facility] [address] DONTA [place] [address] documented as of this encounter Visit Diagnoses Diagnosis Foreign travel Other specified conditions influencing health status Healthcare maintenance Routine general medical examination at a health care facility documented in this encounter Care Teams Home Companion Relationship Specialty Start Date End Date Elyssa Mcpherson MD [address] [facility] [place] [address] PCP - General 06/30/12 01/01/15 documented as of this encounter
--- OUTSIDE RECORDS SUMMARY | 2024-02-21 01:31 | XMS_ITS | Encounter Summary ---
Author Organization [facility] Address [facility] [place] [address] Care Team Providers Care Health And Fitness Professor Name Role Phone Leticia Hernandez MD Primary Care Provider Reason for Visit * Reason Comments Skin Check Focused Exam * Consultation (Routine) - Closed Specialty Diagnoses / Procedures Referred By Edson evans Referred To Contact Dermatology Diagnoses Lentigo--punch biopsy necessary?. Suspicious lesion on left shoulder and left triceps Diane Healy, [place] [address] [place] [address] [facility] Dermatology [address] [place] [address] Referral ID Status Reason Start Date Expiration Date V isits Requested Visits Authorized [id number] Closed Consult, Test & Treat Connection Center 06/02/2017 06/02/2018 1 1 Encounter Details Date Type Department Care Team (Late st Contact Info) Description 07/05/2017 10:30 AM EST Office Visit Dermatology at [facility] [address] [place] [address] Deepika Rene MD [facility] [place] [address] Dermatofibroma; Dermal nevus; Lentigines; SK (seborrheic keratosis) Social History Tobacco Use Types Packs/Day Years Used Date Smoking Tobacco: Never Smokeless Tobacco: Never Sex and Gender Information Value Date Recorded Sex Assigned at Not on file Gender Identity Female 08/21/2020 5:05 PM EST Sexual Orientation Not on file documented as of this encounter Progress Notes * Deepika Rene MD - 07/05/2017 10:30 AM EST DERMATOLOGY CONSULT NOTE Date of service: 07/05/2017 Shanita Francisco : 1945 Provider: Deepika Rene MD Chief Complaint Patient presents with ??? Skin Check Focused Exam The patient is seen at the request of Leticia Hernandez MD, who instructed the patient to be seen for evaluation of above, SKIN HX: No personal history of Melanoma or NMSC No personal history of skin disease No pacemakers or defibrillators Preferred name: Shanita Preferred method of contact for results: Home Phone OK to leave detailed message including biopsy results if applicable: Yes HPI Shanita Francisco is a 71 y.o. year old female, new to me and to dermatology. Here today for a full skin examination. Patient reports a concerning spot on the left shoulder and left tricep. Noticed at the end of May by Dr. Garzon in [place], [place]. Asymptomatic to patient. MEDS: Current Outpatient Prescriptions Medication Sig Dispense Refill ??? atovaquone-proguanil (MALARONE) 250-100 mg per tablet Take 1 tablet by mouth daily. Start 1 daybefore travel to [facility]; daily there and daily for 7 days after. 11 tablet 0 ??? CIS Free Text Med - Havrix 1440UNIT/1ML, IM, X 1 No current facility-administered medications for this visit. ADR: Review of patient's allergies indicates no known allergies. ROS General: feeling well Skin: denies other skin complaints MEDICAL HISTORY: Patient Active Problem List Diagnosis Code ??? Healthcare maintenance Z00.00 ??? Nevus D22.9 FAMILY HISTORY: Mother: unknown type of skin cancer Sister: melanoma ? Father had Eczema, Daughter had Psoriasis SOCIAL HISTORY/OCCUPATION: About to Retire from [employer] as a [employer] EXAM General: NAD, pleasant, cooperative Skin: Patient was asked to disrobe to the level of their comfort. A total body skin exam except for the genitalia was performed. This includes examination of the skin of the face, ears, neck, chest, axillae, left and right upper and lower extremities, hands, feet, abdomen, back, and buttocks. The genitalia, perineum, and perianal areas were not examined. Significant skin findings: A. Left shoulder x 1 and left triceps x 1: firm papule, centrally raised and sclerotic, with peripheral hyperpigmentation and dimpling with lateral pressure. B. Right cheek and chin: Fairborn fleshy papules C. Trunk and extremities: Scattered 0.4-1.0 cm,echevarria, brown-black papules/plaques with waxy stuck on appearance D. Sun-exposed areas: 0.3-0.6cm light-brown evenly pigmented, well-demarcated macules ?? ASSESSMENT/PLAN: A. Dermatofibroma (DF) - Discussed benign nature of lesion and provided reassurance. No treatment necessary at this time. ?? B. Dermal nevi - Discussed benign nature of lesion and provided reassurance. No treatment necessary at this time. ?? C. Seborrheic Keratosis - Patient reassured lesions are benign in nature -Patient advised to call, should they become inflamed or irritated D. Lentigines - Discussed benign nature of lesion and provided reassurance. No treatment necessary at this time. Follow up: Return to clinic in 1 year for full skin exam, or sooner if needed. A reminder letter will be sent to schedule. Patient instructed to call with questions or concerns. I am documenting this encounter acting as the scribe for and in the presence of Dr. Rene: WENDIE OWENS LPN and Tania Hu, Clinical Scribe, I performed the above scribed service and agree with the accuracy of the documentation in this encounter. Deepika Rene MD Breast Surgeon of Dermatology, Department of Park AttendantBreast Surgeonhome care physical therapist (Dermatopathology) [facility] cc: Leticia Hernandez MD documented in this encounter Plan of Treatment Upcoming Encounters Date Type Department Care Team (Late st Contact Info) Description 02/22/2024 1:00 PM EDT Office Visit Hematology/Oncology at [address] [address] Carrie Bruno MD [facility] DR HEMATOLOGY/[place] [address] Oliva Mccabe APRN [facility] HEMATOLOGY/[place] [address] 09/11/2024 1:00 PM EST Office Visit Dermatology at [facility] [address] [place] [phone] Lizeth Hallman MD [facility] [place] [address] documented as of this encounter Visit Diagnoses Diagnosis Dermatofibroma Benign neoplasm of skin, site unspecified Dermal nevus Benign neoplasm of skin, site unspecified Lentigines Other dyschromia SK (seborrheic keratosis) Other seborrheic keratosis documented in this encounter Care Teams Health And Fitness Professor Relationship Specialty Start Date End Date Leticia Hernandez MD [address] [place] [address] PCP - General Family Medicine 06/14/17 07/07/17 documented as of this encounter
--- OUTSIDE RECORDS SUMMARY | 2024-02-21 01:31 | XMS_ITS | Encounter Summary ---
Author Organization [facility] Address [facility] [place] [address] Care Team Providers Care Painter Helper Name Role Phone Sonali Guzman MD Primary Care Provider [phone] Encounter Details Date Type Department Care Team (Latest Contact Info) Description 07/08/2017 2:28 PM EST - 07/08/2017 11:59 PM EST Hospital Encounter [facility] [place] [address] Thrombocytopenia Discharge Disposition: Home Social History Tobacco Use Types Packs/Day Years Used Date Smoking Tobacco: Never Smokeless Tobacco: Never Sex and Gender Information Value Date Recorded Sex Assigned at Not on file Gender Identity Female 08/21/2020 5:05 PM EST Sexual Orientation Not on file documented as of this encounter Medications at Time of Discharge Medication Sig Dispensed Refills Start Date End Date predniSONE (DELTASONE) 20 mg Tablet Take 3 tablets by mouth daily. 42 tablet 07/08/2017 10/21/2017 atovaquone-proguanil (MALARONE) 250-100 mg per tabletIndications:Forei gn travel Take 1 tablet by mouth daily. Start 1 day before travel to [facility]; daily there and daily for 7 days after. 11 tablet 0 06/30/2012 04/21/2018 CIS Free Text Med - Havrix 1440UNIT/1ML, IM, X 1 05/25/2005 04/21/2018 documented as of this encounter Plan of Treatment Upcoming Encounters Date Type Department Care Team (Late st Contact Info) Description 02/22/2024 1:00 PM EDT Office Visit Hematology/Oncology at [address] [address] Carrie Bruno MD [facility] DR HEMATOLOGY/[place] [address] Oliva Mccabe APRN [facility] DR HEMATOLOGY/[place] [address] 09/11/2024 1:00 PM EST Office Visit Dermatology at [facility] [address] [place] [address] Lizeth Hallman MD [facility] [place] [address] documented as of this encounter Procedures Procedure Name Priority Date/Time Associated Diagnosis Comments HEMOGRAM Routine 07/08/2017 2:35 PM EST Thrombocytopenia DIFFERENTIAL, AUTOMATED Routine 07/08/2017 2:35 PM EST Thrombocytopenia PLATELET COUNT Routine 07/08/2017 2:35 PM EST Thrombocytopenia CBC (WITH DIFF) Routine 07/08/2017 2:35 PM EST Thrombocytopenia documented in this encounter Results * Differential, Automated (07/08/2017 2:35 PM EST) Neutrophils % 62.6 % [facility] Neutr Abs (ANC) 4.29 1.70 - 6.10 x10(3)/[facility] Lymphocytes % 23.0 % [facility] Lymphocytes Abs 1.6 0.9 - 3.2 x10(3)/[facility] Monocytes % 10.8 % [facility] Monocyte Abs 0.7 0.3 - 0.9 x10(3)/[facility] Eosinophils % 2.2 % [facility] Eosinophils Abs 0.2 0.0 - 0.4 x10(3)/[facility] Basophils % 1.3 % [facility] Basophils Abs 0.1 0.0 - 0.1 x10(3)/[facility] Immature Gran % 0.10 % [facility] Comment: Immature granulocytes(IG's)percentage and absolute count will include metamyelocytes, myelocytes, and promyelocytes. Blood smears from CBCs yielding IG's will be scanned manually for concordance. If this scan disagrees with the automated IG or if promyelocytes are noted, a manual differential will be performed. [facility]enzie Gran Abs 0.01 0.00 - 0.04 x10(3)/[facility] Blood specimen (specimen) 07/08/2017 2:35 PM EST 07/08/2017 2:48 PM EST Narrative Resulting Agency Comment Spec In Lab Mil Jade MD HEMATOLOGY ORDERAB LES [facility] [place] [address] * (ABNORMAL) Hemogram (07/08/2017 2:35 PM EST) WBC 6.9 4.0 - 9.5 x10(3)/[facility] RBC 4.64 4.00 - 5.21 x10(6)/[facility] Hemoglobin 14.1 11.7 - 15.5 gm/dL [facility] Hematocrit 41.4 35.7 - 45.8 % [facility] MCV 89.2 82.6 - 94.4 fL [facility] MCH 30.4 27.1 - 32.0 pg [facility] MCHC 34.1 31.7 - 35.0 gm/dL [facility] Platelets 67(L) 145 - 357 x10(3)/[facility] RDWSD 41.3 37.0 - 46.0 fL [facility] RDWCV 12.6 11.5 - 14.1 % [facility] MPV 12.4 7.6 - 12.9 fL [facility] nRBC % Auto 0.0 % [facility] nRBC Abs Auto 0.000 0.000 - 0.000 x10(3)/mcL [facility] Blood specimen (specimen) 07/08/2017 2:35 PM EST 07/08/2017 2:48 PM EST Narrative Resulting Agency Comment Spec In Lab Mil Jade MD HEMATOLOGY ORDERAB LES [facility] [place] [address] * (ABNORMAL) Platelet count (07/08/2017 2:35 PM EST) Platelets 67(L) 145 - 357 x10(3)/mc L [facility] Plat Immature % 9.5(H) 0.0 - 7.4 % [facility] Comment: Limitation of the Immature Platelet Fraction (IPF)-May be less reliable when the platelet count is less than 26n218/uL due to statistical imprecision. The IPF value [...] in a decreased state of production. References: [employer] The Clinical Value of the Immature Platelet Fraction (IPF) in Cell Recovery Document Number [id number] 12/2010 [employer] The Role of the Immature Platelet Fraction (IPF) in the Differential Diagnosis of Thrombocytopenia, Document [id number] V012/10/13 P05/14 Blood specimen (specimen) 07/08/2017 2:35 PM EST 07/08/2017 2:48 PM EST Narrative Resulting Agency Comment Spec In Lab Mil Jade MD [place] [address] documented in this encounter Visit Diagnoses Diagnosis Thrombocytopenia Thrombocytopenia, unspecified documented in this encounter Care Teams Painter Helper Relationship Specialty Start Date End Date Sonali Guzman MD [address] [place] [address] PCP - General Family Medicine 07/08/17 04/20/18 documented as of this encounter
--- OUTSIDE RECORDS SUMMARY | 2024-02-21 01:31 | XMS_ITS | Encounter Summary ---
Author Organization [facility] Address [facility] [place] [address] Care Team Providers Care Spool Maker Name Role Phone Amelia Avina ABDULLAHI Primary Care Provider [phone] Encounter Details Date Type Department Care Team (Late Contact Info) Description 06/03/2017 Telephone Dermatology at [facility] [address] [place] [address] Deepika Rene MD [facility] [address] [place] [address] Social History Tobacco Use Types Packs/Day Years Used Date Smoking Tobacco: Never Sex and Gender Information Value Date Recorded Sex Assigned at Not on file Gender Identity Female 08/21/2020 5:05 PM EST Sexual Orientation Not on file documented as of this encounter Miscellaneous Notes * Telephone Encounter - Graciela Ta - 06/03/2017 1:43 PM EDT I left a voicemail for Shanita Francisco requesting a call back, I was returning her call to reschedule an apt. documented in this encounter Plan of Treatment Upcoming Encounters Date Type Department Care Team (Late Contact Info) Description 02/22/2024 1:00 PM EDT Office Visit Hematology/Oncology at [address] [address] Carrie Bruno MD [facility] DR HEMATOLOGY/[place] [address] Oliva Mccabe APRN [facility] HEMATOLOGY/[place] [address] 09/11/2024 1:00 PM EST Office Visit Dermatology at [facility] [address] [place] [address] Lizeth Hallman MD [facility] DR [address]TA [place] [address] documented as of this encounter Visit Diagnoses Not on filedocumented in this encounter Care Teams Spool Maker Relationship Specialty Start Date End Date Amelia Avina, CONSUMER AFFAIRS MANAGER [address] [place] [address] PCP - General 01/16/15 06/13/17 documented as of this encounter
[2024-02-21 13:06] LABS: Abs Immature Grans 0.02 10^3/uL (0.0-0.06); Absolute Basophil Count 0.09 10^3/uL (0.0-0.2); Absolute Eosinophil Count 0.13 10^3/uL (0.0-0.7); Absolute Lymphocyte Count 1.62 10^3/uL (1.2-3.4); Absolute Neutrophil Count 3.61 10^3/uL (1.2-6.7); Basophils % 1.5 %; Eosinophils % 2.1 %; HCT 41.3 % (36.0-46.0); HGB 13.5 g/dL (11.2-15.7); Immature Grans % 0.3 %; Lymphocytes % 26.7 %; MCH 30.5 pg (27.0-33.0); MCHC 32.7 % (32.0-36.0); MCV 93 fL (80-95); MPV 11.3 fL (8.0-11.0); Monocytes % 9.9 %; Neutrophils % 59.5 %; Platelet Count 137 10^3/uL (130-400); RBC 4.42 10^6/uL (3.93-5.22); RDW 12.1 % (11.7-14.6); RDW-SD 41.5 fL; WBC 6.07 10^3/uL (4.4-10.8)
== END 2024-02-21 01:27 | disposition home or self-care (01) ==
LOC: LBO 01:26
PROVIDERS: PCP Family Medicine; Visit Provider Internal Medicine Hematology & Oncology
DX: D69.3 Immune thrombocytopenic purpura (principal); D69.6 Thrombocytopenia, unspecified
CPT/HCPCS: 36415; 85025

== ENCOUNTER 2024-05-15 02:35 | Outpatient (CLI) | payer MEDICARE, SELFPAY ==
[2024-05-15 14:02] LABS: Abs Immature Grans 0.02 10^3/uL (0.0-0.06); Absolute Eosinophil Count 0.14 10^3/uL (0.0-0.7); Absolute Lymphocyte Count 1.75 10^3/uL (1.2-3.4); Absolute Monocyte Count 0.62 10^3/uL (0.1-0.8); Absolute Neutrophil Count 4.23 10^3/uL (1.2-6.7); Basophils % 1.5 %; HCT 40.4 % (36.0-46.0); HGB 13.2 g/dL (11.2-15.7); Immature Grans % 0.3 %; Lymphocytes % 25.5 %; MCH 30.5 pg (27.0-33.0); MCHC 32.7 % (32.0-36.0); MCV 93 fL (80-95); Neutrophils % 61.7 %; Platelet Count 135 10^3/uL (130-400); RBC 4.33 10^6/uL (3.93-5.22); RDW 12.3 % (11.7-14.6); RDW-SD 42.4 fL; WBC 6.86 10^3/uL (4.4-10.8)
== END 2024-05-15 02:36 | disposition home or self-care (01) ==
PROVIDERS: Internal Medicine Hematology & Oncology; PCP Family Medicine; Visit Provider Nurse Practitioner Adult Health
DX: D69.6 Thrombocytopenia, unspecified (principal)
CPT/HCPCS: 36415; 85025

== ENCOUNTER 2024-05-21 16:03 | Outpatient (CLI) | payer MEDICARE, SELFPAY ==
--- NOTE | 2024-05-21 | DI.RAD_ITS ---
Exam(s) XR KNEE LT 3V AP,LAT,JOAQUINA EXAM: XR KNEE LT 3V AP,LAT,JOAQUINA CLINICAL HISTORY: CHRONIC PAIN LT KNEE. TECHNIQUE: 2D digital imaging was performed of the left knee. Images were obtained. Merchant,AP, lateral and PA tunnel views were obtained. COMPARISON: CR XR knee LT 3V AP,lat,joaquina from 06/12/2018 FINDINGS: BONES: No acute fracture is present. No bony destructive lesion is seen. JOINTS: There is moderate narrowing of the medial femoral tibial joint. There is also narrowing of t he patellofemoral joint. Osteophytes are seen in both the patellofemoral and femoral tibial joints. No joint effusion is seen. No loose body. SOFT TISSUE: Atherosclerotic calcification is present. IMPRESSION: Moderate arthrosis of the left knee. DATA REPOSITORY: RADIATION DOSE DELIVERED:
--- OUTSIDE RECORDS SUMMARY | 2024-05-21 16:06 | XMS_ITS | Encounter Summary ---
Author Organization [facility] Address [address] [place] [address] Care Team Providers Care Hebrew Cantor Name Role Phone Catracho Pink MD Primary Care Provider [phone] Encounter Details Date Type Department Care Team (Late st Contact Info) Description 05/26/2020 Lab Requisition [facility] Pathology & Laboratory Medicine - [address] [address] Outr Resulting Lab, Provider Social History Tobacco [...] rt-PCR Result NEGATIVE Negative 05/27/2020 18:[address] [facility] Comment: 2019-novel Coronavirus (2019-nCoV) [...] in accordance with CLIA regulations, College of [place] [employer] (CAP) guidelines (Oct 18, 2019), and FDA guidance (Sep 29, 2019). This test is only for use under the Food and Drug Administration's Emergency Use Authorization. Swab ENTIRE NASOPHARYNX / Unknown 05/26/2020 10:44 EDT 05/26/2020 20:45 EDT Provider Outr Resulting Lab MICROBIOLOGY - GENERAL ORDERABLES [facility] [place], [place] * COVID-19 TESTING (05/26/2020 10:44 EDT) COVID-19 rt-PCR Result NEGATIVE Negative 05/27/2020 21:08 EDT [facility] Comment: 2019-novel Coronavirus (2019-nCoV) not detected [...] in accordance with CLIA regulations, College of [place] [employer]ologists (CAP) guidelines (Oct 18, 2019), and FDA guidance (Sep 29, 2019). This test is only for use under the Food and Drug Administration's Emergency Use Authorization. Performing Lab [facility] 05/27/2020 21:08 EDT [facility] Swab 05/26/2020 10:4 4 EDT 05/26/2020 20:45 EDT Provider Outr Resulting Lab MICROBIOLOGY - GENERAL ORDERABLES [facility] [address] [place], [place] [id number] [place] [address] LABORATORY [place], [place] documented in this encounter Visit Diagnoses Not on filedocumented in this encounter Care Teams Hebrew Cantor Relationship Specialty Start Date End Date Catracho Pink MD PCP - General 06/22/15 documented as of this encounter
--- OUTSIDE RECORDS SUMMARY | 2024-05-21 16:06 | XMS_ITS | Encounter Summary ---
Author Organization [facility] Address [address] [place] [address] Care Team Providers Care Gear Lapper Name Role Phone Unavailable Primary Care Provider Unavailabl e Encounter Details Date Type Department Care Team (Late st Contact Info) Description 03/02/2001 11:34 EDT Hospital Encounter [facility] - Other [address] [place] [address] Opal Benito MD Unknown, Provider, Social History [...] ? TORREY CONTEH ? Accession #: ? [id number] : ? 1945 (Age: 55) ??F ?Collect [...] Benito MD PATHOLOGY ORDERABLES [facility] [address] [place] [address] documented in this encounter Visit Diagnoses Not on filedocumented in this encounter
--- OUTSIDE RECORDS SUMMARY | 2024-05-21 16:06 | XMS_ITS | Clinical Summary ---
Author Organization [facility] Address [address] [place] [address] Care Team Providers Care Gastroenterology Technician Name Role Phone Catracho Pink MD Primary Care Provider [phone] Social History Tobacco Use Types Packs/Day Years [...] COVID-19 Vaccine ( season) 2023 Care Teams Gastroenterology Technician Relationship Specialty Start Date End Date Catracho Pink MD PCP - General 06/22/15
--- OUTSIDE RECORDS SUMMARY | 2024-05-21 16:06 | XMS_ITS | Encounter Summary ---
Author Organization [facility] Address [address] [place] [address] Care Team Providers Care Life Science Technical Officer Name Role Phone Unavailable Primary Care Provider Unavailabl e Encounter Details Date Type Department Care Team (Latest Contact Info) Description 08/26/1999 17:30 EST - 08/27/1999 11:59 EST Hospital Encounter [facility] [address] [place] [address] Sites, Cindy Alarcon MD Discharge Disposition: Home [...]
--- OUTSIDE RECORDS SUMMARY | 2024-05-21 16:06 | XMS_ITS | Encounter Summary ---
Author Organization [facility] Address [address] [place] [address] Care Team Providers Care Advertising Account Representative Name Role Phone Unavailable Primary Care Provider Unavailabl e Encounter Details Date Type Department Care Team (Latest Contact Info) Description 12/31/2002 17:25 EDT - 01/01/2003 11:59 EDT Hospital Encounter [facility] [address] [place] [address] Cindy Luo MD Discharge Disposition: Home or [...] BLOOD G ORDERABLES [facility] [address] [place] [address] * HEMAGRAM (12/31/2002 17:50 EDT) WBC 4.56 [...] & PF4 OR DERABLES Performing Organization Address City/[facility] Co de Phone Number [facility] [address] [place] [address] documented in this encounter Visit Diagnoses Not on filedocumented in this encounter
--- OUTSIDE RECORDS SUMMARY | 2024-05-21 16:06 | XMS_ITS | Encounter Summary ---
Author Organization [facility] Address [address] [place] [address] Care Team Providers Care Envelope Folding Machine Adjuster Name Role Phone Catracho Pink MD Primary Care Provider [phone] Encounter Details Date Type Department Care Team (Late st Contact Info) Description 11/27/[address] [facility] Pathology & Laboratory Medicine - [address] [phone] Outr Resulting Lab, Provider Social History Tobacco [...] Neg and Giardia Antigen Neg 10:43 EDT [facility] Feces SPECIMEN FROM RECTUM / Unknown 11/27/2020 9:00 EDT 11/27/2020 19:43 EDT Provider Outr Resulting Lab MICROBIOLOGY - GENERAL ORDERABLES [facility] [address] [place] [address] documented in this encounter Visit Diagnoses Not on filedocumented in this encounter Care Teams Envelope Folding Machine Adjuster Relationship Specialty Start Date End Date Catracho Pink MD PCP - General 06/22/15 documented as of this encounter
--- OUTSIDE RECORDS SUMMARY | 2024-05-21 16:06 | XMS_ITS | Encounter Summary ---
Author Organization [facility] Address [address] [place] [address] Care Team Providers Care Bottle And Glass Inspector Name Role Phone Unavailable Primary Care Provider Unavailabl e Encounter Details Date Type Department Care Team (Late st Contact Info) Description 10/26/2000 Results Only [facility] - [facility] conversion [address] [place] [address] Sites, Cindy Alarcon MD Social History Tobacco [...] Priority Date/Time Associated Diagnosis Comments MISCELLANEOUS TEST, ANCRAM Routine 10/26/2000 10:54 EST MISCELLANEOUS TEST, ANCRAM Routine 10/26/2000 10:53 EST MISCELLANEOUS TEST, ANCRAM Routine 10/26/2000 10:52 EST documented in this encounter Results * MISCELLANEOUS TEST (10/26/2000 10:54 EST) Test Name FREE FATTY ACIDS [facility] Result 349 uEq/L 8280 24 MO CLAMP 08/25/99 [facility] Ref Range <[id number] 24 MO CLAMP 08/25/99 [facility] Ref Lab [facility] reference lab [id number] 24 MO CLAMP 08/25/99 [facility] 10/26/2000 10:5 4 EST 10/26/2000 10:54 EST Cindy Luo MD CHEMISTRY & BLOOD G ORDERABLES Performing Organization Address City/[facility] Co de Phone Number [facility] [address] [place] [address] * MISCELLANEOUS TEST (10/26/2000 10:53 EST) Test Name FREE FATTY ACIDS [facility] Result 477 uEq/L 8280 12 MO CLAMP 08/21/98 [facility] Ref Range <[id number] 12 MO CLAMP 08/21/98 [facility] Ref Lab [place] [facility] lab [id number] 12 MO CLAMP 08/21/98 [facility] 10/26/2000 10:5 3 EST 10/26/2000 10:53 EST Cindy Luo MD CHEMISTRY & BLOOD G ORDERABLES Performing Organization Address [facility] Co de Phone Number [facility] [address] [place] [address] * MISCELLANEOUS TEST (10/26/2000 10:52 EST) Test Name FREE FATTY ACIDS [facility] Result 360 uEq/L 8280 6 MO CLAMP 02/05/98 [facility] Ref Range <[id number] 6 MO CLAMP 02/05/98 [facility] Ref Lab [place] reference lab [id number] 6 MO CLAMP 02/05/98 [facility] 10/26/2000 10:5 2 EST 10/26/2000 10:52 EST Cindy Luo MD CHEMISTRY & BLOOD G ORDERABLES Performing Organization Address City/[facility] Co de Phone Number [facility] [address] [place] [address] documented in this encounter Visit Diagnoses Not on filedocumented in this encounter
--- OUTSIDE RECORDS SUMMARY | 2024-05-21 16:06 | XMS_ITS | Encounter Summary ---
Author Organization [facility] Address [address] [place] [address] Care Team Providers Care Head Cager Name Role Phone Unavailable Primary Care Provider Unavailabl e Encounter Details Date Type Department Care Team (Late st Contact Info) Description 05/12/2007 Results Only [facility] - Maple conversion [address] [place] [address] Winnie Toussaint MD [address] [place] [address] Social History Tobacco Use Types Packs/Day Years [...] ? TORREY CONTEH ? Accession #: ? [id number] : ? 1945 (Age: 61) ??F ?Collect Date: ? 05/12/2007 Location: ? [facility] ? Receive Date: ? 05/16/2007 Provider: ?WINNIE TOUSSAINT MD Copy to: ? Specimen/Source: ?ThinPrep Pap Test, Vagina/Cervix/Endo cervix, processed on Daily Dealy ThinPrep Imaging System, with manual evaluation Last [...] Toussaint MD PATHOLOGY ORDERABLES Performing Organization Address City/State/[facility] Co de Phone Number [facility] [address] [place] [address] documented in this encounter Visit Diagnoses Not on filedocumented in this encounter
--- OUTSIDE RECORDS SUMMARY | 2024-05-21 16:06 | XMS_ITS | Encounter Summary ---
Author Organization [facility] Address [address] [place] [address] Care Team Providers Care School Guard Name Role Phone Catracho Pink MD Primary Care Provider [phone] Encounter Details Date Type Department Care Team (Late st Contact Info) Description 07/28/2020 Lab Requisition [facility] Pathology & Laboratory Medicine - [address] [address] Outr Resulting Lab, Provider Social History Tobacco [...] <3.1 See Note mIU/mL 07/29/2020 9:37 EST [facility] Comment: Reference Range for Hep B Surface Ab, Quant: Positive: >= 10.0 mIU/mL Negative: ??< 10.0 mIU/mL Patient is presumed to not be immune to infection with Hepatitis B Virus. Hep B Surface Ab, Qualitative Negative See Note 07/29/2020 9:37 EST [facility] Comment: Reference Range for Hep B Surface Ab, Qual: Unvaccinated: ??Negative Vaccinated: ??Positive Blood VENOUS BLOOD / Unknown 07/28/2020 8:50 EST 07/28/2020 15:33 EST Provider Outr Resulting Lab CHEMISTRY & BLOOD GAS ORDERABLES Performing Organization Address City/[facility]/ZIP Co de Phone Number [facility] [address] [place] [address] * HEPATITIS B SURFACE ANTIGEN (07/28/2020 8:50 EST) Hep B Surface Ag Negative Negative 07/29/2020 9:45 EST [facility] Blood VENOUS BLOOD / Unknown 07/28/2020 8:50 EST 07/28/2020 15:33 EST Provider Outr Resulting Lab CHEMISTRY & BLOOD GAS ORDERABLES Performing Organization Address City/[facility]/ZIP Co de Phone Number [facility] [address] [place] [address] * HEPATITIS C AB W REFLEX TO HCV RNA BY PCR (07/28/2020 8:50 EST) Hep C Antibody Negative Negative 07/29/2020 10:27 EST [facility] Blood VENOUS BLOOD / Unknown 07/28/2020 8:50 EST 07/28/2020 15:33 EST Provider Outr Resulting Lab CHEMISTRY & BLOOD GAS ORDERABLES Performing Organization Address City/[facility] Co de Phone Number [facility] [address] [place] [address] documented in this encounter Visit Diagnoses Not on filedocumented in this encounter Care Teams School Guard Relationship Specialty Start Date End Date Catracho Pink MD PCP - General 06/22/15 documented as of this encounter
--- OUTSIDE RECORDS SUMMARY | 2024-05-21 16:06 | XMS_ITS | Encounter Summary ---
Author Organization [facility] Address [address] [place] [address] Care Team Providers Care Extension Worker Name Role Phone Unavailable Primary Care Provider Unavailabl e Encounter Details Date Type Department Care Team (Late st Contact Info) Description 09/03/2010 Results Only [facility] - [facility] [address] [place], [place] [address] Elyssa Mcpherson MD [address] [place] [address] [address] [place] [phone] Social History Tobacco Use Types Packs/Day Years [...] ? WERO, TORREY ? Accession #: ? [id number] ? : ? 1945 (Age: 65) ??F [...] and electronically signed by: ? Lorrie Noel [place], [place](ASCP) ? Report ??Date: 09/09/2010 12:43 ? [...] MD PATHOLOGY ORDERABLE S Performing Organization Address City/State/[facility] Co de Phone Number [facility] [address] [place] [address] documented in this encounter Visit Diagnoses Not on filedocumented in this encounter
--- OUTSIDE RECORDS SUMMARY | 2024-05-21 16:06 | XMS_ITS | Referral Summary ---
Author Organization [facility] Address [address] [place] [address] Care Team Providers Care Lodging Manager Name Role Phone Catracho Pink MD Primary Care Provider [phone] Social History Tobacco Use Types Packs/Day Years Used Date Smoking Tobacco: Never Assessed Sex and Gender Information Value Date Recorded Sex Assigned at Not on file Gender Identity Not on file Sexual Orientation Not on file Plan of Treatment Not on file Care Teams Lodging Manager Relationship Specialty Start Date End Date Catracho Pink MD PCP - General 06/22/15
--- OUTSIDE RECORDS SUMMARY | 2024-05-21 16:07 | XMS_ITS | Encounter Summary ---
Author Organization [facility] [place] [address] Care Team Providers Care Chief Lifestyle Officer Name Role Phone Catracho Vernon MD Primary Care Provider [phone] Reason for Visit * Reason Onset Date Comments Labs Only 04/05/2023 Lab Tracking Encounter Details Date Type Department Care Team (Late st Contact Info) Description 04/05/2023 Telephone Hematology/Oncology at [address] [address] Bird Kohli, RN Labs Only [...] LABS ORDERED: cbc/diff every 8 weeks at [facility] MEDICATIONS: 07/16/20- dexamethasone 40 IV day one [...] Care Team (Late st Contact Info) Description 08/29/2024 1:00 PM EST Office Visit Hematology/Oncology at [address] [address] Carrie Bruno MD [facility] DR HEMATOLOGY [place] [address] Oliva Mccabe, ROLL BUILDER [facility] DR HEMATOLOGY [place] [address] 09/11/2024 1:00 PM EST Office Visit Dermatology at [place] [address] [place] [address] Lizeth Hallman MD [facility] DR [address] [place] [address] documented as of this encounter Procedures Procedure Name Priority Date/Time Associated Diagnosis Comments CBC (WITH DIFF) Routine 04/05/2023 documented in this encounter Results * CBC (with Diff) (04/05/2023) White Blood Cell 6.59 Red Blood Cell 4.30 Hemoglobin 12.9 Hematocrit 39.1 Platelet 116 Neutrophil Absolute (ANC) - Automated 4.35 Blood Historical Provider HEMATOLOGY ORDERA BLES documented in this encounter Visit Diagnoses Not on filedocumented in this encounter Care Teams Chief Lifestyle Officer Relationship Specialty Start Date End Date Catracho Vernon MD PCP - General Family Medicine 04/21/18 documented as of this encounter
--- OUTSIDE RECORDS SUMMARY | 2024-05-21 16:07 | XMS_ITS | Encounter Summary ---
Author Organization [facility] Address [facility] [place] [address] Care Team Providers Care Sales Support Consultant Name Role Phone Catracho Vernon MD Primary Care Provider [phone] Reason for Visit * Reason Comments Follow-up Encounter Details Date Type Department Care Team (Late st Contact Info) Description 06/16/2022 1:00 PM EST Office Visit Hematology/Oncology at [address] [phone] Carrie Bruno MD [facility] DR [place] [address] Oliva Gilmore APRN [facility] DR [place] [address] Thrombocytopenia; Diarrhea, unspecified type Social History Tobacco [...] documented in this encounter Progress Notes * EliotChrissydelfino Parra, INSTRUMENT TECH - 06/16/2022 1:00 PM EST OUTPATIENT HEMATOLOGY [...] Covid spike antibody positive, tested 03/03/2021 at [facility]. Her plt have stabilized and she has done remarkably well off all therapy since January. Stanley presuming this is a response to her rituximab. She remains under considerable stress at home as her has been diagnosed with ALS. 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 50th wedding anniversary in 2018! In 2020 her was diagnosed with ALS. Rare ETOH One daughter is teacher in [place]. Her daughter and son-in-law work for [employer] in [facility]. One son health science writer in [place]. . 3 children total and 4 grandchildren total. Retired [employer]. FAMILY HISTORY: Mother: CAD, renal Father: dementia Sibs: 3 sisters Afib; CAD, DM Children: healthy No autoimmune disorders MEDICATIONS AND ALLERGIES- reviewed at this visit Medications 06/22/22 1799 Medication Sig Taking? lisinopriL (Zestril) 10 mg [...] is a well-developed, well-nourished, well-appearing though slightly [id number] woman in no acute distress Physical exam not performed today LABORATORY EVALUATION: Labs obtained at [facility] on 05/03/2022 in anticipation of [...] The cyclosporine combinations are more challenging in [facility] as wecannot get levels easily. [...] call us any time with questions orconcerns. OLIVA GILMORE APRN Nurse Practitioner Section of Hematology [facility] Cancer Blanket Cc: Catracho Vernon MD documented in this encounter Plan of Treatment Upcoming Encounters Date Type Department Care Team (Late st Contact Info) Description 08/29/2024 1:00 PM EST Office Visit Hematology/Oncology at [address] [address] Carrie Bruno MD [facility] DR [place] [address] Oliva Gilmore, ABDULLAHI [facility] [place] [address] 09/11/2024 1:00 PM EST Office Visit Dermatology at [facility] [address] [place] [phone] Lizeth Hallman MD [facility] [place] [address] documented as of this encounter Visit Diagnoses Diagnosis Thrombocytopenia Thrombocytopenia, unspecified Diarrhea, unspecified type documented in this encounter Care Teams Sales Support Consultant Relationship Specialty Start Date End Date Catracho Vernon MD PCP - General Family Medicine 04/21/18 documented as of this encounter
--- OUTSIDE RECORDS SUMMARY | 2024-05-21 16:07 | XMS_ITS | Encounter Summary ---
Author Organization [facility] Address [facility] [place] [address] Care Team Providers Care Services Clerk Name Role Phone Catracho Vernon MD Primary Care Provider [phone] Encounter Details Date Type Department Care Team (Latest Contact Info) Description 02/22/2024 Travel Social History Tobacco Use Types Packs/Day [...] PM EST Office Visit Hematology/Oncology at [address] [phone] Carrie Bruno MD [facility] H[place]ATOLOGY [place] [address] Oliva Mccabe, ABDULLAHI [facility] [place] [address] 09/11/2024 1:00 PM EST Office Visit Dermatology at [facility] [address] [place] [address] Lizeth Hallman MD [facility] [place] [address] documented as of this encounter Visit Diagnoses Not on filedocumented in this encounter Care Teams Services Clerk Relationship Specialty Start Date End Date Catracho Vernon MD PCP - General Family Medicine 04/21/18 documented as of this encounter
--- OUTSIDE RECORDS SUMMARY | 2024-05-21 16:07 | XMS_ITS | Encounter Summary ---
Author Organization [facility] [place] [address] Care Team Providers Care Franchise Business Consultant Name Role Phone Catracho Vernon MD Primary Care Provider Reason for Visit * Reason Onset Date Comments Labs Only 04/15/2021 Lab Tracking Encounter Details Date Type Department Care Team (Late st Contact Info) Description 04/15/2021 Telephone Hematology/Oncology at [address] [phone] Bird Kohli, RN Labs Only [...] LABS ORDERED: cbc/diff every other week at [facility], also needs CMP if getting IVIG [...] 1:00 PM EST Office Visit Hematology/Oncology at [address] [phone] Carrie Bruno MD [facility] DR HEMATOLOGY [place] [address] Oliva Mccabe APRN [facility] HEMATOLOGY [place] [address] 09/11/2024 1:00 PM EST Office Visit Dermatology at [facility] [address] [place] [phone] Lizeth Hallman MD [facility] DR [facility] [place] [address] documented as of this encounter Procedures Procedure Name Priority Date/Time Associated Diagnosis Comments CBC (WITH DIFF) Routine 04/14/2021 documented in this encounter Results * CBC (with Diff) (04/14/2021) White Blood Cell 5.52 Hemoglobin 14.3 Hematocrit 43.4 Mean Cell Volume 91.9 Platelet 110 Neutrophil Absolute (ANC) - Automated 3.57 Blood Historical Provider HEMATOLOGY ORDERA BLES documented in this encounter Visit Diagnoses Not on filedocumented in this encounter Care Teams Franchise Business Consultant Relationship Specialty Start Date End Date Catracho Vernon MD PCP - General Family Medicine 04/21/18 documented as of this encounter
--- OUTSIDE RECORDS SUMMARY | 2024-05-21 16:07 | XMS_ITS | Encounter Summary ---
Author Organization [facility] [place] [address] Care Team Providers Care Licensed Optician Name Role Phone Catracho Vernon MD Primary Care Provider [phone] Reason for Visit * Reason Onset Date Comments Labs Only 04/28/2021 Lab Tracking Encounter Details Date Type Department Care Team (Late st Contact Info) Description 04/28/2021 Telephone Hematology/Oncology at [address] [phone] Bird Kohli, RN Labs Only [...] LABS ORDERED: cbc/diff every other week at [facility], also needs CMP if getting IVIG MEDICATIONS: [...] 1:00 PM EST Office Visit Hematology/Oncology at [address] [phone] Carrie Bruno MD [facility] DR [place] [address] Oliva Mccabe APRN [facility] [place] [address] 09/11/2024 1:00 PM EST Office Visit Dermatology at [facility] [address] [place] [phone] Lizeth Hallman MD [facility] [address] [place] [address] documented as of this encounter Procedures Procedure Name Priority Date/Time Associated Diagnosis Comments CBC (WITH DIFF) Routine 04/27/2021 documented in this encounter Results * CBC (with Diff) (04/27/2021) White Blood Cell 4.68 Hemoglobin 13.9 Hematocrit 42.4 Mean Cell Volume 91.6 Platelet 129 Neutrophil Absolute (ANC) - Automated 2.79 Blood Historical Provider HEMATOLOGY ORDERA BLES documented in this encounter Visit Diagnoses Not on filedocumented in this encounter Care Teams Licensed Optician Relationship Specialty Start Date End Date Catracho Vernon MD PCP - General Family Medicine 04/21/18 documented as of this encounter
--- OUTSIDE RECORDS SUMMARY | 2024-05-21 16:07 | XMS_ITS | Encounter Summary ---
Author Organization [facility] [place] [address] Care Team Providers Care Preventive Maintenance Coordinator Name Role Phone Catracho Vernon MD Primary Care Provider [phone] Reason for Visit * Reason Onset Date Comments Labs Only 02/22/2024 Lab tracking Encounter Details Date Type Department Care Team (Late st Contact Info) Description 02/22/2024 Telephone Hematology/Oncology at [address] [phone] Jackie Salinas RN Labs Only [...] Telephone Encounter - Jackie Salinas RN - 02/23/2024 3:23 PM EDT LAB TRACKING Shanita Francisco : 1945 DIAGNOSIS: ITP LABS ORDERED: cbc/diff every 3 months at [facility] of 08/24/23 ( Cbc q3 months or if she develops virus or bleeding/bruising with RN tracking. Will also check CBCa couple weeks after virus just to be sure she does not develop delayed ITP after virus. ) MEDICATIONS: 07/16/20- dexamethasone 40 IV day one then daily for 3 days 08/05/20-08/08/20 dexamethasone 40 mg po x4 days IVIG- 12/15,12/16,01/08, 01/09 Rituxan to start 01/16- 4 doses given Pred 40 mg x4 days 02/19/21-02/22/21 Assessment/Plan: Pt saw Pepito Mccabe APPLICATION PERFORMANCE ENGINEER in clinic. She will have labs again in 3 months around , and return to clinic in 6 months. 11/22/23 00:00 02/21/24 00:00 WBC 6.99 (E) 6.99 (E) 6.07 (E) RBC 4.89 (E) 4.89 (E) 4.42 (E) Hemoglobin 14.7 (E) 14.7 (E) 13.5 (E) Hematocrit 45.1 (E) 45.1 (E) 41.3 (E) Platelets 150 (E) 150 (E) 137 (E) Neutr Abs (ANC) 4.57 (E) 4.57 (E) 3.61 (E) (E): External lab result documented in this encounter Plan of Treatment Upcoming Encounters Date Type Department Care Team (Late st Contact Info) Description 08/29/2024 1:00 PM EST Office Visit Hematology/Oncology at [address] [phone] Carrie Bruno MD [facility] DR HEMATOLOGY [place] [address] Oliva Mccabe APRN [facility] [address] HEMATOLOGY [place] [address] 09/11/2024 1:00 PM EST Office Visit Dermatology at [facility] [address] [place] [phone] Lizeth Hallman MD [facility] DR [place] [address] documented as of this encounter Visit Diagnoses Not on filedocumented in this encounter Care Teams Preventive Maintenance Coordinator Relationship Specialty Start Date End Date Catracho Vernon MD PCP - General Family Medicine 04/21/18 documented as of this encounter
--- OUTSIDE RECORDS SUMMARY | 2024-05-21 16:07 | XMS_ITS | Encounter Summary ---
Author Organization [facility] [place] [address] Care Team Providers Care Sales And Events Coordinator Name Role Phone Catracho Vernon MD Primary Care Provider [phone] Reason for Visit * Reason Onset Date Comments Labs Only 03/17/2021 Lab Tracking Encounter Details Date Type Department Care Team (Late st Contact Info) Description 03/17/2021 Telephone Hematology/Oncology at [address] [phone] Bird Kohli, RN Labs [...] LABS ORDERED: cbc/diff every other week at [facility], also needs CMP if getting IVIG [...] M1 Band Latest Ref Range: None Detected Nordic Free Light Chain Latest Ref Range: 0.72 - 2.75 mg/dL Lambda Free Light Chain Latest Ref Range: 0.57 - 2.15 mg/dL Nordic Lambda FLC Ratio Latest Ref Range: 0.4000 [...] 1:00 PM EST Office Visit Hematology/Oncology at [address] [phone] Carrie Bruno MD [facility] DR HEMATOLOGY [place] [address] Oliva Mccabe APRN [facility] HEMATOLOGY [place] [address] 09/11/2024 1:00 PM EST Office Visit Dermatology at [facility] [address] [place] [phone] Lizeth Hallman MD [facility] [place] [address] documented as of this encounter Procedures Procedure Name Priority Date/Time Associated Diagnosis Comments CBC (WITH DIFF) Routine 03/17/2021 documented in this encounter Results * CBC (with Diff) (03/17/2021) White Blood Cell 5.63 Hemoglobin 13.7 Hematocrit 42.3 Mean Cell Volume 90.4 Platelet 143 Neutrophil Absolute (ANC) - Automated 3.64 Blood Historical Provider HEMATOLOGY ORDERA BLES documented in this encounter Visit Diagnoses Not on filedocumented in this encounter Care Teams Sales And Events Coordinator Relationship Specialty Start Date End Date Catracho Vernon MD PCP - General Family Medicine 04/21/18 documented as of this encounter
--- OUTSIDE RECORDS SUMMARY | 2024-05-21 16:07 | XMS_ITS | Encounter Summary ---
Author Organization [facility] [place] [address] Care Team Providers Care Eyeglass Frames Inspector Name Role Phone Catracho Vernon MD Primary Care Provider [phone] Reason for Visit * Reason Onset Date Comments Labs Only 05/19/2021 Lab Tracking Encounter Details Date Type Department Care Team (Late st Contact Info) Description 05/19/2021 Telephone Hematology/Oncology at [address] [phone] Bird Kohli, RN Labs Only (Lab Tracking) Social History Tobacco Use Types Packs/Day Years Used Date Smoking Tobacco: Never Smokeless Tobacco: Never Sex and Gender Information Value Date Recorded Sex Assigned at Not on file Gender Identity Female 08/21/2020 5:05 PM EST Sexual Orientation Not on file documented as of this encounter Miscellaneous Notes * Telephone Encounter - Bird Kohil RN - 05/19/2021 8:47 AM EDT LAB TRACKING Torrey Conteh : 1945 DIAGNOSIS: ITP LABS ORDERED: cbc/diff every 3 weeks at [facility], also needs CMP if getting IVIG MEDICATIONS: [...] 1:00 PM EST Office Visit Hematology/Oncology at [address] [phone] Carrie Bruno MD [facility] H[place]ATOLOGY [place] [address] Oliva Mccabe APRN [facility] [place] [address] 09/11/2024 1:00 PM EST Office Visit Dermatology at [facility] [address] [place] [address] Lizeth Hallman MD [facility] [address] [place] [address] documented as of this encounter Procedures Procedure Name Priority Date/Time Associated Diagnosis Comments CBC (WITH DIFF) Routine 05/18/2021 documented in this encounter Results * CBC (with Diff) (05/18/2021) White Blood Cell 5.82 Hemoglobin 14.3 Hematocrit 43.0 Mean Cell Volume 89.8 Platelet 114 Neutrophil Absolute (ANC) - Automated 3.47 Blood Historical Provider HEMATOLOGY ORDERA BLES documented in this encounter Visit Diagnoses Not on filedocumented in this encounter Care Teams Eyeglass Frames Inspector Relationship Specialty Start Date End Date Catracho Vernon MD PCP - General Family Medicine 04/21/18 documented as of this encounter
--- OUTSIDE RECORDS SUMMARY | 2024-05-21 16:07 | XMS_ITS | Encounter Summary ---
Author Organization [facility] Address [facility] [place] [address] Care Team Providers Care Family Service Assistant Name Role Phone Catracho Vernon MD Primary Care Provider [phone] Encounter Details Date Type Department Care Team [...] PM EST Office Visit Hematology/Oncology at [address] [phone] Carrie Bruno MD [facility] [place] [address] Oliva Mccabe, ABDULLAHI [facility] [place] [address] 09/11/2024 1:00 PM EST Office Visit Dermatology at [facility] [address] [place] [address] Lizeth Hallman MD [facility] [place] [address] documented as of this encounter Visit Diagnoses Not on filedocumented in this encounter Care Teams Family Service Assistant Relationship Specialty Start Date End Date Catracho Vernon MD PCP - General Family Medicine 04/21/18 documented as of this encounter
--- OUTSIDE RECORDS SUMMARY | 2024-05-21 16:07 | XMS_ITS | Encounter Summary ---
Author Organization [facility] Address [facility] [place] [address] Care Team Providers Care Disk Sander Name Role Phone Catracho Vernon MD Primary Care Provider [phone] Encounter Details Date Type Department Care Team [...] PM EST Office Visit Hematology/Oncology at [address] [phone] Carrie Bruno MD [facility] [place] [address] Oliva Mccabe, ABDULLAHI [facility] [place] [address] 09/11/2024 1:00 PM EST Office Visit Dermatology at [facility] [address] [place] [address] Lizeth Hallman MD [facility] [place] [address] documented as of this encounter Visit Diagnoses Not on filedocumented in this encounter Care Teams Disk Sander Relationship Specialty Start Date End Date Catracho Vernon MD PCP - General Family Medicine 04/21/18 documented as of this encounter
--- OUTSIDE RECORDS SUMMARY | 2024-05-21 16:07 | XMS_ITS | Encounter Summary ---
Author Organization [facility] [place] [address] Care Team Providers Care Family Practice Physician Assistant Name Role Phone Catracho Vernon MD Primary Care Provider [phone] Encounter Details Date Type Department Care Team (Late st Contact Info) Description 01/13/2022 Notes Only Hematology/Oncology at [address] [phone] Leticia Bennett OIL FIELD PUMPER OFFICE OF CARE MANAGEMENT Social History Tobacco [...] order. They have met severaltimes with an private chef but due to differing opinions on things [...] in that role. Her son is in [place], a daughter is out of the country and her youngest daughter does not want toparticularly talk about this. OIL FIELD PUMPER suggested she make a plan for some [...] 1:00 PM EST Office Visit Hematology/Oncology at [address] [phone] Carrie Bruno MD [facility] DR HEMATOLOGY [place] [address] Oliva Mccabe APRN [facility] DR HEMATOLOGY [place] [address] 09/11/2024 1:00 PM EST Office Visit Dermatology at [facility] [address] [place] [address] Lizeth Hallman MD [facility] [address] [place] [place] [address] documented as of this encounter Visit Diagnoses Not on filedocumented in this encounter Care Teams Family Practice Physician Assistant Relationship Specialty Start Date End Date Catracho Vernon MD PCP - General Family Medicine 9/21/18 documented as of this encounter
--- OUTSIDE RECORDS SUMMARY | 2024-05-21 16:07 | XMS_ITS | Encounter Summary ---
Author Organization [facility] Address [facility] [place] [address] Care Team Providers Care Asphalt Roller Operator Name Role Phone Catracho Vernon MD Primary Care Provider [phone] Encounter Details Date Type Department Care Team (Latest Contact Info) Description 03/03/2021 7:30 AM EDT - 03/03/2021 7:38 AM EDT Hospital Encounter Hematology [place] [address] Thrombocytopenia Discharge Disposition: Home Social History Tobacco Use Types Packs/Day Years Used Date Smoking Tobacco: Never Smokeless Tobacco: Never Sex and Gender Information Value Date Recorded Sex Assigned at Not on file Gender Identity Female 08/21/2020 5:05 PM EST Sexual Orientation Not on file documented as of this encounter Medications at Time of Discharge Medication Sig Dispensed Refills Start Date End Date Azelaic Acid (FINACEA) 15 % GelIndications:Rosacea After washing your face twice a day, apply a thin film of cream to affected areas of the face twice daily. 30 g 3 11/13/2020 07/15/2021 dexamethasone (Decadron) 4 mg TabletIndications:Throm bocytopenia Dex 40mg daily X 4 days and repeat q 3 weeks 40 tablet 11 07/16/2020 12/15/2022 TURMERIC ORAL Take 1 capsule by mouth daily. 12/15/2022 ergocalciferol, vitamin D2, (VITAMIN D ORAL) Take 1,000 mg by mouth daily. 02/25/2024 ubidecarenone (CO Q-10 ORAL) Take by mouth. 02/25/2024 documented as of this encounter Plan of Treatment Upcoming Encounters Date Type Department Care Team (Late st Contact Info) Description 08/29/2024 1:00 PM EST Office Visit Hematology/Oncology at [address] [address] Carrie Bruno MD [facility] DR [place] [address] Oliva Mccabe APRN [facility] DR [place] [address] 09/11/2024 1:00 PM EST Office Visit Dermatology at [facility] [address] [place] [address] Lizeth Hallman MD [facility] DR DON[place] [address] Scheduled Orders Name Type Priority Associated Diagnoses [...] 7:27 AM EDT Thrombocytopenia COMPREHENSIVE METABOLIC PANEL STAT 03/03/2021 7:27 AM EDT Thrombocytopenia documented in this encounter Results * Protein Electrophoresis, serum (03/03/2021 12:37 PM EDT) Pathologist [facility] Total Prot Electrophoresis 6.7 6.1 - 8.0 gm/dL [facility] Albumin Electrophoresis 4.27 3.60 - 6.00 gm/dL [facility] Alpha 1 Globulin 0.19 0.10 - 0.30 gm/dL [facility] Alpha 2 Globulin 0.80 0.40 - 0.90 gm/dL [facility] Beta Globulin 0.76 0.50 - 1.00 gm/dL [facility] Gamma Globulin 0.68 0.50 - 1.30 gm/dL [facility] M1 Band None Detected None Detected [facility] Blood 03/03/2021 12:3 7 PM EDT 03/03/2021 12:50 PM EDT Narrative Resulting Agency Comment Spec In Lab Carrie Bruno MD CHEMISTRY ORDERA BLES [facility] [place] [address] * Immunoglobulins, Quantitative (03/03/2021 12:37 PM EDT) Pathologist [facility] Immunoglobulin G 885 700 - 1,600 mg/dL [facility] Comment: Pediatric Reference Intervals obtained from the Caliper Reference Interval project. http://www.sickkids.ca/caliperproject/index.html IgA 128 70 - 400 mg/dL [facility] IgM 91 40 - 230 mg/dL [facility] Blood 03/03/2021 12:3 7 PM EDT 03/03/2021 12:50 PM EDT Narrative Resulting Agency Comment Spec In Lab Carrie Bruno MD CHEMISTRY ORDERA BLES Performing Organization Address [facility]/ZIP Co de Phone Number [facility] [place] [address] * Free Light Chains, Serum (03/03/2021 12:37 PM EDT) [facility] Brushy Free Light Chain 0.83 0.72 - 2.75 mg/dL [facility] Lambda Free Light Chain 0.93 0.57 - 2.15 mg/dL [facility] Brushy/Lambda FLC Ratio 0.8925 0.4000 - 2.5800 [facility] Blood 03/03/2021 12:3 7 PM EDT 03/03/2021 12:50 PM EDT Narrative Resulting Agency Comment Spec In Lab Carrie Bruno MD CHEMISTRY ORDERA BLES Performing Organization Address [facility] Co de Phone Number [facility] [place] [address] * (ABNORMAL) Differential, Automated (03/03/2021 7:27 AM EDT) [facility] Neutrophil % 62.1 % [facility] Neutrophil Absolute 4.99 1.70 - 6.10 x10(3)/mc L [facility] Lymph % 23.8 % [facility] Lymphocytes Abs 1.9 0.9 - 3.2 x10(3)/mc L [facility] Monocyte % 12.0 % [facility] Monocyte Abs 1.0(H) 0.3 - 0.9 x10(3)/mc L [facility] Eos % 0.9 % [facility] Eosinophils Abs 0.1 0.0 - 0.4 x10(3)/mc L [facility] Basophil % 0.6 % [facility] Baso Absolute 0.0 0.0 - 0.1 x10(3)/mc L [facility] Immature Gran % 0.60 % [facility] Comment: Immature granulocytes(IG's)percentage and absolute count will include metamyelocytes, myelocytes, and promyelocytes. Blood smears from CBCs yielding IG's will be scanned manually for concordance. If this scan disagrees with the automated IG or if promyelocytes are noted, a manual differential will be performed. Immature Gran Absolute 0.05(H) 0.00 - 0.04 x10(3)/mc L [facility] Blood 03/03/2021 7:27 AM EDT 03/03/2021 7:48 AM EDT Narrative Resulting Agency Comment Spec In Lab Carrie Bruno MD HEMATOLOGY ORDER JAMIE [facility] [place] [address] * (ABNORMAL) Hemogram (03/03/2021 7:27 AM EDT) White Blood Cell 8.0 4.0 - 9.5 x10(3)/mc L [facility] Red Blood Cell 4.75 4.00 - 5.21 x10(6)/mc L [facility] Hemoglobin 14.0 11.7 - 15.5 gm/dL [facility] Hematocrit 42.9 35.7 - 45.8 % [facility] Mean Cell Volume 90.3 82.6 - 94.4 fL [facility] Mean Cell Hemoglobin 29.5 27.1 - 32.0 pg [facility] Mean Cell Hemoglobin Concentration 32.6 31.7 - 35.0 gm/dL [facility] Platelet 131(L) 145 - 357 x10(3)/mc L [facility] RDW Standard Deviation 43.4 37.0 - 46.0 fL [facility] RDW coefficient of variation 13.2 11.5 - 14.1 % [facility] Mean Platelet Volume 11.5 7.6 - 12.9 fL [facility] NRBC% auto 0.0 % [facility] NRBC Absolute 0.000 0.000 - 0.000 x10(3)/mc L [facility] Blood 03/03/2021 7:27 AM EDT 03/03/2021 7:48 AM EDT Narrative Resulting Agency Comment Spec In Lab Carrie Bruno MD HEMATOLOGY ORDER JAMIE [facility] [place] [address] * Comprehensive metabolic panel (non-fasting) (03/03/2021 7:27 AM EDT) Glucose 100 65 - 199 mg/dL [facility] Comment:Diabetes: >=200 mg/d L plus symptoms Blood Urea Nitrogen 17 8 - 18 mg/dL [facility] Creatinine 0.86 0.70 - 1.20 mg/dL [facility] Sodium 142 135 - 145 mmol/L [facility] Potassium 3.6 3.5 - 5.0 mmol/L [facility] Comment: Please note: ??Patients with WBC >100,000 may have falsely elevated Potassium levels. ??For accurate Potassium quantification in these patients send serum separator tube (gold top) for subsequent determinations. ??Contact the Clinical Chemistry Laboratory if there are any questions. Chloride 106 98 - 107 mmol/L [facility] Carbon Dioxide 26 22 - 31 mmol/L [facility] Anion Gap 10 5 - 15 mmol/L [facility] Calcium 9.9 8.5 - 10.5 mg/dL [facility] Protein, Total 6.7 6.1 - 8.0 gm/dL [facility] Albumin 4.0 3.2 - 5.2 gm/dL [facility] Aspartate Aminotransferase 15 0 - 30 unit/L [facility] Alanine Aminotransferase 25 0 - 30 unit/L [facility] Alkaline Phosphatase 85 35 - 105 unit/L [facility] Bilirubin, Total 0.2 0.2 - 1.3 mg/dL [facility] Est Glomerular Filtration Rate 65 >=60 mL/min/1. 73 m?? [facility] Comment: This patient? s estimated glomerular [...] MD CHEMISTRY ORDERA BLES Performing Organization Address [facility] Co de Phone Number [facility] [place] [address] * Lactate Dehydrogenase (03/03/2021 7:27 AM EDT) Lactate Dehydrogenase 177 110 - 220 unit/L [facility] Blood 03/03/2021 7:27 AM EDT 03/03/2021 7:48 AM EDT Narrative Resulting Agency Comment Spec In Lab Carrie Bruno MD CHEMISTRY ORDERA BLES Performing Organization Address [facility] Co de Phone Number [facility] [place] [address] * COVID-19 Rob Antibody (03/03/2021 7:27 AM EDT) SARS-CoV-2 Rob Ab Detected [facility] Comment: This is a total antibody [...] be due to a past infection with ybh-NQSE-NpD-2 coronavirus strains, such as coronavirus HKU1, NL63, OC43, or 229E. This test was performed using the Elecsys Vbxc-WCMF-TbS-2 S total antibody assay on the Rafa Delon e801 analyzer. This serology test is available following FDA Emergency Use Authorization, however it has not been reviewed by the FDA, nor is it FDA cleared or approved. The performance characteristics of this test were determined by the Department of Pathology and Laboratory Medicine at [facility]. The laboratory is certified under the Clinical [...] fact sheets at the following FDA website: https://www.fda.gov/medical-devices/qphwqxswkdo-arfnxye-1326-muawg-15-uirexcqdb- use-a gsqhlianjjiog-xsshuoy-buqinio/ikczk-vvignplepxx-jzwb Blood 03/03/2021 7:27 AM EDT 03/03/2021 7:48 AM EDT Carrie Bruno MD CHEMISTRY ORDERA BLES Performing Organization Address City/State/[facility] Co de Phone Number [facility] [place] [address] documented in this encounter Visit Diagnoses Diagnosis Thrombocytopenia Thrombocytopenia, unspecified documented in this encounter Care Teams Asphalt Roller Operator Relationship Specialty Start Date End Date Catracho Vernon MD PCP - General Family Medicine 04/21/18 documented as of this encounter
--- OUTSIDE RECORDS SUMMARY | 2024-05-21 16:07 | XMS_ITS | Encounter Summary ---
Author Organization [facility] [place] [address] Care Team Providers Care Propeller Mechanic Name Role Phone Catracho Vernon MD Primary Care Provider [phone] Reason for Visit * Reason Onset Date Comments Labs Only 02/02/2023 Lab tracking Encounter Details Date Type Department Care Team (Late st Contact Info) Description 02/02/2023 Telephone Hematology/Oncology at [address] [address] Leah Ray, RN Labs Only [...] 1:00 PM EST Office Visit Hematology/Oncology at [address] [phone] Carrie Bruno MD [facility] DR [place] [address] Oliva Mccabe APRN [facility] DR [place] [address] 09/11/2024 1:00 PM EST Office Visit Dermatology at [facility] [address] [place] [phone] Lizeth Hallman MD [facility] DR [place] [address] documented as of this encounter Procedures Procedure Name Priority Date/Time Associated Diagnosis Comments CBC (WITH DIFF) Routine 01/31/2023 documented in this encounter Results * CBC (with Diff) (01/31/2023) White Blood Cell 6.56 Hemoglobin 14.2 Hematocrit 42.4 Mean Cell Volume 90.0 Platelet 114 Neutrophil Absolute (ANC) - Automated 4.13 Blood 01/31/2023 Historical Provider HEMATOLOGY ORDERA BLES documented in this encounter Visit Diagnoses Not on filedocumented in this encounter Care Teams Propeller Mechanic Relationship Specialty Start Date End Date Catracho Vernon MD PCP - General Family Medicine 04/21/18 documented as of this encounter
--- OUTSIDE RECORDS SUMMARY | 2024-05-21 16:07 | XMS_ITS | Encounter Summary ---
Author Organization [facility] [place] [address] Care Team Providers Care School Cafeteria Cook Name Role Phone Catracho Vernon MD Primary Care Provider [phone] Reason for Visit * Reason Onset Date Comments Labs Only 06/07/2023 Lab Tracking Encounter Details Date Type Department Care Team (Late st Contact Info) Description 06/07/2023 Telephone Hematology/Oncology at [address] [phone] Bird Kohli, RN Labs Only [...] cbc/diff every [address] [facility] MEDICATIONS: 07/16/20- dexamethasone 40 IV day one [...] 1:00 PM EST Office Visit Hematology/Oncology at [address] [phone] Carrie Bruno MD [facility] DR HEMATOLOGY [place] [address] Oliva Mccabe APRN [facility] DR HEMATOLOGY [place] [address] 09/11/2024 1:00 PM EST Office Visit Dermatology at [place] [address] [place] [phone] Lizeth Hallman MD [facility] DR DONTA WHE[place] [address] documented as of this encounter Procedures Procedure Name Priority Date/Time Associated Diagnosis Comments CBC (WITH DIFF) Routine 06/07/2023 documented in this encounter Results * CBC (with Diff) (06/07/2023) White Blood Cell 5.60 Red Blood Cell 4.68 Hemoglobin 14.1 Hematocrit 43.0 Platelet 126 Neutrophil Absolute (ANC) - Automated 3.49 Blood Historical Provider HEMATOLOGY ORDERA BLES documented in this encounter Visit Diagnoses Diagnosis Acute ITP Immune thrombocytopenic purpura Thrombocytopenia Thrombocytopenia, unspecified documented in this encounter Care Teams School Cafeteria Cook Relationship Specialty Start Date End Date Catracho Vernon MD PCP - General Family Medicine 04/21/18 documented as of this encounter
--- OUTSIDE RECORDS SUMMARY | 2024-05-21 16:07 | XMS_ITS | Encounter Summary ---
Author Organization [facility] Address [facility] [place] [address] Care Team Providers Care Governor Assembler Hydraulic Name Role Phone Catracho Vernon MD Primary Care Provider [phone] Encounter Details Date Type Department Care Team [...] 1:00 PM EST Office Visit Hematology/Oncology at [address] [phone] Carrie Bruno MD [facility] HEMATOLOGY [place] [address] Oliva Mccabe, ABDULLAHI [facility] HEMATOLOGY [place] [address] 09/11/2024 1:00 PM EST Office Visit Dermatology at [facility] [address] [place] [address] Lizeth Hallman MD [facility] [address] [place] [address] documented as of this encounter Visit Diagnoses Not on filedocumented in this encounter Care Teams Governor Assembler Hydraulic Relationship Specialty Start Date End Date Catracho Vernon MD PCP - General Family Medicine 04/21/18 documented as of this encounter
--- OUTSIDE RECORDS SUMMARY | 2024-05-21 16:07 | XMS_ITS | Encounter Summary ---
Author Organization [facility] Address [facility] [place] [address] Care Team Providers Care Bug Trimmer Name Role Phone Catracho Vernon MD Primary Care Provider [phone] Encounter Details Date Type Department Care Team (Late st Contact Info) Description 04/15/2021 10:30 AM EDT Office Visit Hematology/Oncology at [address] [phone] Carrie Bruno MD [facility] DR [place] [address] Stacey Bhatt APRN [facility] [address] [place] [address] Thrombocytopenia Social History Tobacco Use Types Packs/Day [...] this encounter Progress Notes * Stacey Bhatt, RN WELLNESS - 04/15/2021 10:30 AM EDT Subjective: Patient ID: Shanita Francisco is a 75 y.o. female here for f/u of ITP Patient Active Problem List Diagnosis ??? Spinal stenosis at L4-L5 level ??? 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 Nevus ??? Healthcare maintenance HPI Shanita is doing well. She saw a physician at [facility] regarding splenectomy who agreed that splenectomy at [...] for the past number of weeks! Shanita Francisco will return to clinic in 3 months- she will call before then if any concerns or changes in status. ?? documented in this encounter Plan of Treatment Upcoming Encounters Date Type Department Care Team (Late st Contact Info) Description 08/29/2024 1:00 PM EST Office Visit Hematology/Oncology at [address] [phone] Carrie Bruno MD [facility] [place] [address] Oliva Mccabe, ABDULLAHI [facility] [place] [address] 09/11/2024 1:00 PM EST Office Visit Dermatology at [address] [place] [address] Lizeth Hallman MD [facility] [place] [address] documented as of this encounter Visit Diagnoses Diagnosis Thrombocytopenia Thrombocytopenia, unspecified documented in this encounter Care Teams Bug Trimmer Relationship Specialty Start Date End Date Catracho Vernon MD PCP - General Family Medicine 04/21/18 documented as of this encounter
--- OUTSIDE RECORDS SUMMARY | 2024-05-21 16:07 | XMS_ITS | Encounter Summary ---
Author Organization [facility] [place] [address] Care Team Providers Care X Ray Technician Name Role Phone Catracho Vernon MD Primary Care Provider [phone] Reason for Visit * Reason Onset Date Comments Labs Only 07/07/2021 lab tracking Encounter Details Date Type Department Care Team (Late st Contact Info) Description 07/07/2021 Telephone Hematology/Oncology at [address] [phone] Jackie Salinas RN Labs Only [...] LABS ORDERED: cbc/diff every 4 weeks at [facility], also needs CMP [...] in in agreement with plan. Stacey Bhatt NETWORKING TECHNOLOGY INSTRUCTOR sent labs to review. Pt due in [...] 1:00 PM EST Office Visit Hematology/Oncology at [address] [phone] Carrie Bruno MD [facility] [place] [address] Oliva Mccabe, ABDULLAHI [facility] [place] [address] 09/11/2024 1:00 PM EST Office Visit Dermatology at [facility] [address] [place] [phone] Lizeth Hallman MD [facility] [place] [address] documented as of this encounter Procedures Procedure Name Priority Date/Time Associated Diagnosis Comments CBC (WITH DIFF) Routine 07/06/2021 documented in this encounter Results * CBC (with Diff) (07/06/2021) White Blood Cell 6.25 Hemoglobin 14.1 Hematocrit 43.1 Platelet 124 Neutrophil Absolute (ANC) - Automated 4.31 Blood 07/06/2021 Historical Provider HEMATOLOGY ORDERA BLES documented in this encounter Visit Diagnoses Not on filedocumented in this encounter Care Teams X Ray Technician Relationship Specialty Start Date End Date Catracho Vernon MD PCP - General Family Medicine 04/21/18 documented as of this encounter
--- OUTSIDE RECORDS SUMMARY | 2024-05-21 16:07 | XMS_ITS | Encounter Summary ---
Author Organization [facility] [place] [address] Care Team Providers Care Tree Scout Name Role Phone Catracho Vernon MD Primary Care Provider [phone] Reason for Visit * Reason Onset Date Comments Labs Only 11/03/2021 Lab Tracking Encounter Details Date Type Department Care Team (Late st Contact Info) Description 11/03/2021 Telephone Hematology/Oncology at [address] [phone] Bird Kohli, RN Labs Only [...] LABS ORDERED: cbc/diff every 8 weeks at [facility], also needs CMP if getting IVIG MEDICATIONS: [...] 1:00 PM EST Office Visit Hematology/Oncology at [address] [phone] Carrie Bruno MD [facility] HEMATOLOGY [place] [address] Oliva Mccabe APRN [facility] HEMATOLOGY [place] [address] 09/11/2024 1:00 PM EST Office Visit Dermatology at [facility] [address] [place] [address] Lizeth Hallman MD [facility] DR [address] [place] [address] documented as of this encounter Procedures Procedure Name Priority Date/Time Associated Diagnosis Comments CBC (WITH DIFF) Routine 11/02/2021 documented in this encounter Results * CBC (with Diff) (11/02/2021) White Blood Cell 5.54 Hemoglobin 13.8 Hematocrit 41.3 Platelet 121 Neutrophil Absolute (ANC) - Automated 3.43 Blood Historical Provider HEMATOLOGY ORDERA BLES documented in this encounter Visit Diagnoses Not on filedocumented in this encounter Care Teams Tree Scout Relationship Specialty Start Date End Date Catracho Vernon MD PCP - General Family Medicine 04/21/18 documented as of this encounter
--- OUTSIDE RECORDS SUMMARY | 2024-05-21 16:07 | XMS_ITS | Encounter Summary ---
Author Organization [facility] Address [facility] [place] [address] Care Team Providers Care Java J2Ee Application Developer Name Role Phone Catracho Vernon MD Primary Care Provider Reason for Visit * Reason Comments Follow-up Encounter Details Date Type Department Care Team ([facility] st Contact Info) Description 03/03/2021 11:30 AM EDT Office Visit [place] [address] Carrie Heredia MD [facility] DR HEMATOLOGY [place] [address] Carrie Hawk APRN [facility] DR HEMATOLOGY [place] [address] Thrombocytopenia Social History Tobacco Use Types Packs/Day [...] were dropping prior to her departure for [facility], so she took dexamethasone 40 mg x 4 days starting 02/19/2021. Dose for of rituximab 100 mg given on 03/14/2021. The patient returns today after vacation on [facility] with her family. Labs and CT of chest abdomen and pelvis (to rule out underlying lymphoma) were done today. She also has a surgical consultation with Dr. Shah following this appointment, as she wanted to learn more about the laparoscopic splenectomy. She has not yet received splenectomy vaccines. She is now fully COVID vaccinated. Covid spike antibody positive, tested 03/03/2021 at [facility]. 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 50th wedding anniversary in 2019! Rare ETOH Has children who work in [place] - her daughter and son-in-law work for [employer] [place]. 2 boys. 3 children total and 4 grandchildren total. Retired [employer]. FAMILY HISTORY: Mother: CAD, renal Father: dementia Sibs: 3 sisters Afib; CAD, DM Children: healthy No autoimmune disorders MEDICATIONS AND ALLERGIES- reviewed at this visit Medications 03/03/21 5819 Medication Sig Taking? ergocalciferol, vitamin D2, (VITAMIN [...] Rob Antibody Result Value Ref Range SARS-CoV-2 oRb Ab Detected Lactate Dehydrogenase Result Value Ref [...] cyclosporine combinations are more challenging in [facility] as wecannot get levels easily. Shanita tolerates the Dex poorly w/ SFX. 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 She reviewed her understanding, which was quite accurate. To date she has not had a response to rituximab, but it is probably too early to aerial lineman. She has been getting 100 mg per [...] The patient returns today after [place] with [place]. Platelets were dropping priorto her departure for [facility], so she took dexamethasone 40 mg x [...] ?? Return to clinic with EMB at [facility] 1 week following the bone marrow biopsy I discussed all of the above with the patient and all of her questions were answered. Support and counseling given as appropriate. Shanita Francisco knows that she can call us any time with questions orconcerns. This note was written or modified using [employer] voice recognition software. The final note was screened for mistakes. Please excuse any remaining errors. CARRIE HEREDIA MD documented in this encounter Plan of Treatment Upcoming Encounters Date Type Department Care Team (Late st Contact Info) Description 08/29/2024 1:00 PM EST Office Visit Hematology/Oncology at [address] [address] Carrie Heredia MD [facility] DR HEMATOLOGY [place] [address] Oliva Mccabe APRN [facility] DR HEMATOLOGY [place] [address] 09/11/2024 1:00 PM EST Office Visit Dermatology at [address] [place] [address] Lizeth Hallman MD [facility] DR [place] [address] documented as of this encounter Results * Free Light Chains, Serum (03/03/2021 12:37 PM EDT) [place] Free Light Chain 0.83 0.72 - 2.75 mg/dL [facility] Lambda Free Light Chain 0.93 0.57 - 2.15 mg/dL [facility] [place]/Lambda FLC Ratio 0.8925 0.4000 - 2.5800 [facility] Blood 03/03/2021 12:3 7 PM EDT 03/03/2021 12:50 PM EDT Narrative Resulting Agency Comment Spec In Lab Carrie Heredia MD CHEMISTRY ORDERA BLES [facility] [place] [address] * Immunoglobulins, Quantitative (03/03/2021 12:37 PM EDT) Pathologist [facility] Immunoglobulin G 885 700 - 1,600 mg/dL [facility] Comment: Pediatric Reference Intervals obtained from the Caliper Reference Interval project. http://www.AMEE.ca/caliperproject/index.html IgA 128 70 - 400 mg/dL [facility] IgM 91 40 - 230 mg/dL [facility] Blood 03/03/2021 12:3 7 PM EDT 03/03/2021 12:50 PM EDT Narrative Resulting Agency Comment Spec In Lab Carrie Heredia MD CHEMISTRY ORDERA BLES Performing Organization Address City/[facility]/ZIP Co de Phone Number [facility] [place] [address] * Protein Electrophoresis, serum (03/03/2021 12:37 PM EDT) [facility] Total Prot Electrophoresis 6.7 6.1 - 8.0 gm/dL [facility] Albumin Electrophoresis 4.27 3.60 - 6.00 gm/dL [facility] Alpha 1 Globulin 0.19 0.10 - 0.30 gm/dL [facility] Alpha 2 Globulin 0.80 0.40 - 0.90 gm/dL [facility] Beta Globulin 0.76 0.50 - 1.00 gm/dL [facility] Gamma Globulin 0.68 0.50 - 1.30 gm/dL [facility] M1 Band None Detected None Detected [facility] Blood 03/03/2021 12:3 7 PM EDT 03/03/2021 12:50 PM EDT Narrative Resulting Agency Comment Spec In Lab Carrie Heredia MD CHEMISTRY ORDERA BLES Performing Organization Address City/State/[facility] Co de Phone Number [facility] [place] [address] documented in this encounter Visit Diagnoses Diagnosis Thrombocytopenia Thrombocytopenia, unspecified documented in this encounter Care Teams Java J2Ee Application Developer Relationship Specialty Start Date End Date Catracho Vernon MD PCP - General Family Medicine 04/21/18 documented as of this encounter
--- OUTSIDE RECORDS SUMMARY | 2024-05-21 16:07 | XMS_ITS | Clinical Summary ---
Author Organization [facility] Address [facility] [place] [address] Care Team Providers Care Mineral Surveying Technician Name Role Phone Catracho Vernon MD Primary Care Provider [phone] Allergies No known active allergies Medications Medication Sig Dispensed Refills Start Date End Date Status Azelaic Acid (FINACEA) 15 % GelIndications:Rosac ea [...] Encounters Date Type Department Care Team Description 02/22/2024 1:00 PM EDT Office Visit Hematology/Oncology at [address] [phone] Carrie Bruno MD Stearns, Diane M, SHOP FOREMAN Acute ITP; Thrombocytopenia 02/22/2024 Telephone Hematology/Oncology at [address] [phone] Jackie Salinas RN Labs Only (Lab tracking) 02/22/2024 Travel 02/21/2024 Travel from Last 3 Months Immunizations Name Administration Dates Next Due Hepatitis A, Unspecified Formulation 06/30/2012 Td Adult (not absorbed) 08/01/2002 Tdap (Adacel, Boostrix) 06/30/2012 Yellow Fever Vaccine 06/30/2012 Social History Tobacco Use Types Packs/Day Years Used Date Smoking Tobacco: Never Smokeless Tobacco: Never Sex and Gender Information Value Date Recorded Sex Assigned at Not on file Gender Identity Female 08/21/2020 5:05 PM EST Sexual Orientation Not on file Last Filed Vital Signs Vital Sign Reading Time Taken Comments Blood Pressure 159/73 02/22/2024 1:04 PM EDT Pulse 71 02/22/2024 12:58 PM EDT Temperature 36.4 ??C (97.5 ??F) 02/22/2024 1 2:58 PM EDT Respiratory Rate 18 02/22/2024 12:5 8 PM EDT Oxygen Saturation 98% 02/22/2024 12: 58 PM EDT Inhaled Oxygen Concentration - - Weight 76.1 kg (167 lb 12.8 oz) 024 12:58 PM EDT Height 160 cm (5' 2.99) 02/22/2024 12: 58 PM EDT Body Mass Index 29.73 02/22/2024 12:58 PM EDT Plan of Treatment Upcoming Encounters Date Type Department Care Team (Late st Contact Info) Description 08/29/2024 1:00 PM EST Office Visit Hematology/Oncology at [address] [phone] Carrie Bruno MD [facility] [place] [address] Oliva Mccabe, SHOP FOREMAN [facility] [place] [address] 09/11/2024 1:00 PM EST Office Visit Dermatology at [facility] [address] [place] [phone] Lizeth Hallman MD [facility] [place] [address] Health Maintenance Due Date Last Done Comments Hepatitis C Screening 1961 Zoster vaccine (1 of 2) 1993 Advance Directive 1998 Bone Density Scan 2008 Pneumoccocal Vaccine: 65+ (1 of 1 - PCV) 2008 Tetanus/Diphtheria/Pertussis Vaccines (2 - Td or Tdap) 06/30/2022 06/30/2012, 08/01/2002 Covid-19 Vaccine (1 - season) 2024 Influenza (Flu) vaccine (1 o f 1 - Influenza standard series) 04/01/2024 Procedures Procedure Name Priority Date/Time Associated Diagnosis Comments CBC (WITH DIFF) Routine 02/21/2024 from Last 3 Months Results * CBC (with Diff) (02/21/2024) White Blood Cell 6.07 Red Blood Cell 4.42 Hemoglobin 13.5 Hematocrit 41.3 Platelet 137 Neutrophil Absolute (ANC) - Automated 3.61 Blood 02/21/2024 Historical Provider HEMATOLOGY ORDERA BLES from Last 3 Months Care Teams Mineral Surveying Technician Relationship Specialty Start Date End Date Catracho Vernon MD PCP - General Family Medicine 04/21/18
--- OUTSIDE RECORDS SUMMARY | 2024-05-21 16:07 | XMS_ITS | Encounter Summary ---
Author Organization [facility] Address [facility] [place] [address] Care Team Providers Care Stucco Plasterer Name Role Phone Catracho Vernon MD Primary Care Provider [phone] Encounter Details Date Type Department Care Team (Late st Contact Info) Description 08/24/2023 10:30 AM EST Office Visit Hematology/Oncology at [address] [phone] Carrie Heredia MD [facility] [address] [place] [address] Oliva Mccabe APRN [facility] [place] [address] Thrombocytopenia Social History Tobacco Use Types Packs/Day [...] and WBC all normal historically Plts 2014- 191 2017- ~06/01- 11 06/03- 30 06/08- 49 [...] Covid spike antibody positive, tested 03/03/2021 at [facility]. 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 50 anniversaryin 2019! In 2020 her was diagnosed with ALS in 2020 and passed in May 2023. He with ACT 39 with Dignity. Rare ETOH One daughter is teacher in [place]. Her daughter and son-in-law work for [employer] in [facility] [place]. One son watch inspector final movement in [place]. . 3 children total and 4 grandchildren total. Retired [employer]. FAMILY HISTORY: Mother: CAD, renal Father: dementia Sibs: 3 sisters Afib; CAD, DM Children: healthy No autoimmune disorders MEDICATIONS AND ALLERGIES- reviewed at this visit Medications 08/24/23 1054 Medication Sig Taking? valsartan (Diovan) 80 mg [...] wall tenderness. LABORATORY EVALUATION: Labs obtained at [facility] in anticipation of this visit revealed [...] 1:00 PM EST Office Visit Hematology/Oncology at [address] [phone] Carrie Heredia MD [facility] [address] [place] [address] Oliva Mccabe, CONSTRUCTION PROJECT ENGINEER [facility] [place] [address] 09/11/2024 1:00 PM EST Office Visit Dermatology at [facility] [address] [place] [address] Lizeth Hallman MD [facility] [place] [address] documented as of this encounter Procedures Procedure Name Priority Date/Time Associated Diagnosis Comments CBC (WITH DIFF) Routine 08/23/2023 CBC (WITH DIFF) Routine 07/12/2023 documented in this encounter Results * CBC (with Diff) (08/23/2023) White Blood Cell 6.97 Hemoglobin 14.1 Hematocrit 43.3 Platelet 140 Neutrophil Absolute (ANC) - Automated 4.08 Blood 08/23/2023 Historical Provider HEMATOLOGY ORDERA BLES * CBC (with Diff) (07/12/2023) White Blood Cell 7.48 Hemoglobin 12.8 Hematocrit 39.2 Platelet 183 Neutrophil Absolute (ANC) - Automated 5.13 Blood 07/12/2023 Historical Provider HEMATOLOGY ORDERA BLES documented in this encounter Visit Diagnoses Diagnosis Thrombocytopenia Thrombocytopenia, unspecified documented in this encounter Care Teams Stucco Plasterer Relationship Specialty Start Date End Date Catracho Vernon MD PCP - General Family Medicine 04/21/18 documented as of this encounter
--- OUTSIDE RECORDS SUMMARY | 2024-05-21 16:07 | XMS_ITS | Encounter Summary ---
Author Organization [facility] [place] [address] Care Team Providers Care Invoice Clerk Name Role Phone Catracho Vernon MD Primary Care Provider Reason for Visit * Reason Onset Date Comments Labs Only 03/31/2021 Lab tracking Encounter Details Date Type Department Care Team (Late st Contact Info) Description 03/31/2021 Telephone Hematology Oncology at [address] [phone] Madison Corrales, RN Labs Only [...] ORDERED: cbc/diff every other week at [facility], also needs CMP if getting IVIG [...] in in agreement with plan. Labs at [facility] yesterday. Sent to Dr. Bruno and ABDULLAHI [...] 1:00 PM EST Office Visit Hematology/Oncology at [address] [phone] Carrie Bruno MD [facility] DR [place] [address] Oliva Mccabe APRN [facility] [place] [address] 09/11/2024 1:00 PM EST Office Visit Dermatology at [place] [address] [place] [phone] Lizeth Hallman MD [facility] [place] [address] documented as of this encounter Procedures Procedure Name Priority Date/Time Associated Diagnosis Comments RETICULOCYTE COUNT Routine 03/30/2021 CBC (WITH DIFF) Routine 03/30/2021 LACTATE DEHYDROGENASE Routine 03/30/2021 COMPREHENSIVE METABOLIC PANEL Routine 03/30/2021 documented in this encounter Results * Reticulocyte Count (03/30/2021) Reticulocyte % 1.6 Blood 03/30/2021 Carrie Bruno MD HEMATOLOGY ORDER JAMIE * Lactate Dehydrogenase (03/30/2021) Lactate Dehydrogenase 207 Blood 03/30/2021 Carrie Bruno MD CHEMISTRY ORDERA BLES * Comprehensive metabolic panel (non-fasting) (03/30/2021) Blood Urea Nitrogen 17 Creatinine 0.82 Blood 03/30/2021 Carrie Bruno MD CHEMISTRY ORDERA BLES * CBC (with Diff) (03/30/2021) White Blood Cell 6.19 Hemoglobin 15.3 Hematocrit 45.8 Platelet 133 Neutrophil Absolute (ANC) - Automated 4.56 Blood 03/30/2021 Carrie Bruno MD HEMATOLOGY ORDER JAMIE documented in this encounter Visit Diagnoses Not on filedocumented in this encounter Care Teams Invoice Clerk Relationship Specialty Start Date End Date Catracho Vernon MD PCP - General Family Medicine 04/21/18 documented as of this encounter
--- OUTSIDE RECORDS SUMMARY | 2024-05-21 16:07 | XMS_ITS | Encounter Summary ---
Author Organization [facility] [place] [address] Care Team Providers Care Tripe Scraper Name Role Phone Catracho Vernon MD Primary Care Provider [phone] Encounter Details Date Type Department Care Team (Late Contact Info) Description 06/08/2023 Orders Only Hematology/Oncology at [address] [phone] Oliva Mccabe APRN [facility] HEMATOLOGY [place] [address] Thrombocytopenia Social History Tobacco Use Types Packs/Day Years Used Date Smoking Tobacco: Never Smokeless Tobacco: Never Sex and Gender Information Value Date Recorded Sex Assigned at Not on file Gender Identity Female 08/21/2020 5:05 PM EST Sexual Orientation Not on file documented as of this encounter Plan of Treatment Upcoming Encounters Date Type Department Care Team (Late Contact Info) Description 08/29/2024 1:00 PM EST Office Visit Hematology/Oncology at [address] [phone] Carrie Bruno MD [facility] HEMATOLOGY [place] [address] Oliva Mccabe APRN [facility] HEMATOLOGY [place] [address] 09/11/2024 1:00 PM EST Office Visit Dermatology at [address] [place] [phone] Lizeth Hallman MD [facility] DR [place]TA [place] [address] documented as of this encounter Visit Diagnoses Diagnosis Thrombocytopenia Thrombocytopenia, unspecified documented in this encounter Care Teams Tripe Scraper Relationship Specialty Start Date End Date Catracho Vernon MD PCP - General Family Medicine 04/21/18 documented as of this encounter
--- OUTSIDE RECORDS SUMMARY | 2024-05-21 16:07 | XMS_ITS | Encounter Summary ---
Author Organization [facility] Address [facility] [place] [address] Care Team Providers Care Logistics Manager Name Role Phone Catracho Vernon MD Primary Care Provider [phone] Reason for Visit * Consultation (Routine) - Closed Specialty Diagnoses / Procedures Referred By Edson evans Referred To Contact General Surgery Diagnoses Thrombocytopenia Carrie Bruno MD [facility] [place] [address] Ramiro Shah MD [facility] [place] [address] Referral ID Status Reason Start Date Expiration Date V isits Requested Visits Authorized [id number] Closed Consult, Test & Treat 02/04/2021 02/04/2022 1 1 Encounter Details Date Type Department Care Team (Late st Contact Info) Description 03/03/2021 12:00 PM EDT Office [place] [address] Ramiro Shah MD [facility] [place] [address] Thrombocytopenia Social History Tobacco Use Types Packs/Day [...] 1:00 PM EST Office Visit Hematology/Oncology at [address] [phone] Carrie Bruno MD [facility] DR [place] [address] Oliva Mccabe APRN [facility] [address] [place] [address] 09/11/2024 1:00 PM EST Office Visit Dermatology at [facility] [address] [place] [address] Lizeth Hallman MD [facility] [place] [address] Scheduled Referrals Name Type Priority Associated Diagnoses Orde r Schedule Referral to General Surgery Outpatient Referral Routine Thrombocytopenia Ordered: 02/04/2021 documented as of this encounter Visit Diagnoses Diagnosis Thrombocytopenia Thrombocytopenia, unspecified documented in this encounter Care Teams Logistics Manager Relationship Specialty Start Date End Date Catracho Vernon MD PCP - General Family Medicine 04/21/18 documented as of this encounter
--- OUTSIDE RECORDS SUMMARY | 2024-05-21 16:07 | XMS_ITS | Encounter Summary ---
Author Organization [facility] [place] [address] Care Team Providers Care Buggy Ladle Tender Name Role Phone Catracho Vernon MD Primary Care Provider [phone] Reason for Visit * Reason Onset Date Comments Labs Only 03/03/2021 Lab Tracking Encounter Details Date Type Department Care Team (Late st Contact Info) Description 03/03/2021 Telephone Hematology/Oncology at [address] [phone] Bird Kohli, RN Labs Only [...] cbc/diff every other week at [facility], also needs CMP if getting IVIG MEDICATIONS: 07/16/20- dexamethasone 40 IV day one then daily for 3 days 08/05/20-08/08/20 dexamethasone 40 mg po x4 days IVIG- 12/15,12/16,01/08, 01/09 Rituxan to start 01/16- 4 doses given Pred 40 mg x4 days 02/19/21-02/22/21 Assessment/Plan: Pt seen by Dr Baxter today in [place]. Plan is every 2 week CBC with [...] 1:00 PM EST Office Visit Hematology/Oncology at [address] [phone] Carrie Bruno MD [facility] DR HEMATOLOGY [place] [address] Oliva Mccabe, METAL CRAFTS TEACHER [facility] HEMATOLOGY [place] [address] 09/11/2024 1:00 PM EST Office Visit Dermatology at [facility] [address] [place] [phone] Lizeth Hallman MD [facility] DR [place] [address] documented as of this encounter Visit Diagnoses Not on filedocumented in this encounter Care Teams Buggy Ladle Tender Relationship Specialty Start Date End Date Catracho Vernon MD PCP - General Family Medicine 04/21/18 documented as of this encounter
--- OUTSIDE RECORDS SUMMARY | 2024-05-21 16:07 | XMS_ITS | Encounter Summary ---
Author Organization [facility] Address [facility] [place] [address] Care Team Providers Care Finish Opener Name Role Phone Catracho Vernon MD Primary Care Provider [phone] Reason for Visit * Reason Comments Follow-up Schedule Office Case Encounter Details Date Type Department Care Team (Late st Contact Info) Description 02/22/2024 1:00 PM EDT Office Visit Hematology/Oncology at [address] [phone] Carrie Bruno MD [facility] [address] [place] [address] Flor Gilmore APRN [facility] [address] [place] [address] Acute ITP; Thrombocytopenia Social History Tobacco Use [...] Mass Index 29.73 02/22/2024 12:58 PM EDT documented in this encounter Progress Notes * Flor Gilmore, TRACTOR OPERATOR BATTERY - 02/22/2024 1:00 PM EDT OUTPATIENT HEMATOLOGY CONSULTATION HISTORY PRESENT [...] ~06/01- 11 06/03- 30 06/08- 49 07/08- 09/2017- 09/2017- 111 04/21/2018- 33 - given dex 40mg Daily 4 days 04/28/2018 - 111 (after dexamethasone) 09/04/18 - 103k HepC/ HIV- negative Treatment Course 06/17- observation 04/2018- Dexamethasone 40mg x 4 days X 1 with response Relapse Jul 2020 Dex 40 X 4 days 07/16- 07/12/19 Held rituxan until COVID vaccination complete IVIG 2gm/kg 12/15 &12/16 and 01/08 & 01/09/21 rituxan 100mg x 4 [01/16, 01/26, 02/03, 7/14/21] Her most recent therapy consisted of dexamethasone 40 mg x 4 days starting 02/19/2021 with 1 dose for of rituximab 100 mg given on 03/14/2021 for increased bruising and gingival bleeding. CT of chest, abdomen and pelvis was obtained at that time to rule out underlying lymphoma and was negative. She also had a surgical consultation with Dr. 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 She is now fully COVID vaccinated. Covid spike antibody positive, tested 03/03/2021 at [facility]. In last year her plt have improved and have even been in the normal range occasionally. Her plt have stabilized and she has done remarkably well off all therapy since January 2021. She has enjoyed a nice improvement in her plt count, unclear of reason, but great for her. Her of ALS in May 2023 - she is understandably lonely and struggling with the adjustment. . He with ACT 39 with Dignity. INTERIM HISTORY OF PRESENT ILLNESS Shanita returns to clinic today in routine follow-up. It has been approximately 6 months since her last visit. 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 CT of chest, abdomen and pelvis was obtained at that time to rule out underlying lymphoma and was negative. She also had a surgical consultation with Dr. Shah following this appointment as she wanted to learn more about the laparoscopic splenectomy. She is now fully COVID vaccinated. Since that time, her platelet count has been reasonable and even in the normal range occasionally. Since last seen, Shanita denies changes to her baseline health. No fevers, chills, recurrent infections or intercurrent illnesses. No drenching sweats, unintentional weight loss, abnormal bleeding or excessive bruising. She is still working to redefine life without her who passed in May 2023 with ALS. Hr only complaint is left knee pain for which she is seeing PT as it impacts her ability to exercise. 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 50th anniversaryin 2019! In 2020 her was diagnosed with ALS in 2020 and passed in May 2023. He with ACT 39 with Dignity. Rare ETOH One daughter is teacher in [place]. Her daughter and son-in-law work for [employer] in [facility]. One son multi disciplined language analyst in [place]. . 3 children total and 4 grandchildren total. Retired [employer]. FAMILY HISTORY: Mother: CAD, renal Father: dementia Sibs: 3 sisters Afib; CAD, DM Children: healthy No autoimmune disorders MEDICATIONS AND ALLERGIES- reviewed at this visit Medications 02/22/24 1304 Medication Sig Taking? valsartan (Diovan) 80 mg [...] other systems are negative PHYSICAL EXAM BP 159/73 Pulse 71 Temp 36.4 ??C (97.5 ??F) (Temporal) Resp 18 Ht 160 cm (5' 2.99) Wt 76.1 kg (167 lb 12.8 oz) SpO2 98% BMI 29.73 kg/m?? Exam not repeated LABORATORY EVALUATION: Labs obtained at [facility] in anticipation of this visit revealed the following; WBC: 6.07 ANC: 3610 Hgb: 13.5 Plt count: 137,000 RADIOGRAPHIC EVALUATION: No new images reviewed today [...] with chronic cholecystitis. PATHOLOGY EVALUATION As above RADIOLOGY: No new images reviewed today ASSESSMENT: Shanita Francisco is a 78 y.o. female with thrombocytopenia initially detected in June2017, when her platelets were 11. This was [...] response to rituximab to date . Most recent Dex 40mg X 4 days [...] The cyclosporine combinations are more challenging in [facility] as wecannot get levels easily. Shanita [...] also discussed the pros and cons of splenectomy but is reluctant to undergo surgery at her age. Ref: Journal of Hematology 2013 Florentino-Jacque. MM labs negative -these were checked given her skeletal findings on CT Diarrhea - started Sep 2020 w/ dex and never stopped. 3 BM every AM - increased flatus, stool for giardia and CDiff were negative. Not currently a problem Hepatitis - Hep B and hep C negative in July 2021. She no longer has adequate hep B antibodies,she will discuss the role of a booster vaccination with her PCP. COVID - COVID vaccine X 2 completed [...] SW will see her today as well. How to re-establish routine and socialization in hr life Plan: IVIG 1 g/kg/day x 2 days OR dex 40mg X 4 days for plt less than 30k Cbc q3 months or if she develops virus or bleeding/bruising with RN tracking. Will also check CBC acouple weeks after virus just to be sure she does not develop delayed ITP after virus. RTC in 6 months with albs and a visit I discussed all of the above with the patient and all of her questions were answered. Support and counseling given as appropriate. Shanita Francisco knows that she can call us any time with questions orconcerns. FLOR GILMORE APRN Nurse Practitioner Section of Hematology Cc: Catracho Vernon MD documented in this encounter Plan of Treatment Upcoming Encounters Date Type Department Care Team (Late st Contact Info) Description 08/29/2024 1:00 PM EST Office Visit Hematology/Oncology at [address] [phone] Carrie Bruno MD [facility] [address] [place] [address] Flor Gilmore APRN [facility] [address] [place] [address] 09/11/2024 1:00 PM EST Office Visit Dermatology at [facility] [address] [place] [address] Lizeth Hallman MD [facility] [place] [address] Scheduled Orders Name Type Priority Associated Diagnoses Orde r Schedule CBC (with Diff) Lab STAT Acute ITP Thrombocytopenia As Needed for 12 Occurrences starting 02/25/2024 until 02/25/2025 documented as of this encounter Procedures Procedure Name Priority Date/Time Associated Diagnosis Comments CBC (WITH DIFF) Routine 02/21/2024 CBC (WITH DIFF) Routine 11/22/2023 documented in this encounter Results * CBC (with Diff) (02/21/2024) White Blood Cell 6.07 Red Blood Cell 4.42 Hemoglobin 13.5 Hematocrit 41.3 Platelet 137 Neutrophil Absolute (ANC) - Automated 3.61 Blood 02/21/2024 Historical Provider HEMATOLOGY ORDERA BLES * CBC (with Diff) (11/22/2023) White Blood Cell 6.99 Red Blood Cell 4.89 Hemoglobin 14.7 Hematocrit 45.1 Platelet 150 Neutrophil Absolute (ANC) - Automated 4.57 Blood 11/22/2023 Historical Provider HEMATOLOGY ORDERA BLES documented in this encounter Visit Diagnoses Diagnosis Acute ITP Immune thrombocytopenic purpura Thrombocytopenia Thrombocytopenia, unspecified documented in this encounter Care Teams Finish Opener Relationship Specialty Start Date End Date Catracho Vernon MD PCP - General Family Medicine 04/21/18 documented as of this encounter
--- OUTSIDE RECORDS SUMMARY | 2024-05-21 16:07 | XMS_ITS | Encounter Summary ---
Author Organization [facility] Address [facility] [place] [address] Care Team Providers Care Clinical Transformation Specialist Name Role Phone Catracho Vernon MD Primary Care Provider [phone] Encounter Details Date Type Department Care Team [...] 1:00 PM EST Office Visit Hematology/Oncology at [address] [phone] Carrie Bruno MD [facility] [place] [address] Oliva Mccabe, ABDULLAHI [facility] [place] [address] 09/11/2024 1:00 PM EST Office Visit Dermatology at [facility] [address] [place] [address] Lizeth Hallman MD [facility] [place] [address] documented as of this encounter Visit Diagnoses Not on filedocumented in this encounter Care Teams Clinical Transformation Specialist Relationship Specialty Start Date End Date Catracho Vernon MD PCP - General Family Medicine 04/21/18 documented as of this encounter
--- OUTSIDE RECORDS SUMMARY | 2024-05-21 16:07 | XMS_ITS | Encounter Summary ---
Author Organization Formerly [facility] Address [facility] [place] [address] Care Team Providers Care Retail Client Solutions Consultant Name Role Phone Catracho Vernon MD Primary Care Provider [phone] Encounter Details Date Type Department Care Team (Latest Contact Info) Description 02/21/2024 Travel Social History Tobacco Use Types Packs/Day [...] PM EST Office Visit Hematology/Oncology at [address] [phone] Carrie Bruno MD [facility] HEMATOLOGY [place] [address] Oliva Mccabe, ABDULLAHI [facility] [place] [address] 09/11/2024 1:00 PM EST Office Visit Dermatology at [facility] [address] [place] [address] Lzieth Hallman MD [facility] [place] [address] documented as of this encounter Visit Diagnoses Not on filedocumented in this encounter Care Teams Retail Client Solutions Consultant Relationship Specialty Start Date End Date Catracho Vernon MD PCP - General Family Medicine 04/21/18 documented as of this encounter
--- OUTSIDE RECORDS SUMMARY | 2024-05-21 16:07 | XMS_ITS | Encounter Summary ---
Author Organization [facility] Address [facility] [place] [address] Care Team Providers Care Handbag Frames Inspector Name Role Phone Catracho Vernon MD Primary Care Provider [phone] Encounter Details Date Type Department Care Team ([facility] st Contact Info) Description 05/20/2022 11:20 AM EDT Office Visit Dermatology at [facility] [address] [place] [address] Nicole Whitt MD [facility] [place] [address] Rosacea; Lentigines; Dermatofibroma; Xerosis cutis; Dermatitis; Family [...] urea, diazolidinyl urea, DMDM hydantoin, bronopol/ Methylchloroisothiazolinone/methylisothiazolinone (MCI/NC)/Methyldibromo glutaronitrile/lanolin/Cocamidopropyl betaine/Oxybenzone (see next page for further explanation. SOAP Aveeno Moisturizing Bar with Natural Colloidal Oatmeal, Fragrance Free, John & John www.aveno.Fleksy $ Vanicream Cleansing Bar, MaxPreps Inc. www.PerBlue $ Avoid liquid cleansers. Cerave Hydrating Cleanser, Hashplex. www.Leftronic.Fleksy $$$ Cetaphil Gentle Skin Cleanser for all skin types, PR Slides www.powervault.Fleksy $$ Free and Clear Liquid Cleanser, MaxPreps Inc. www.PerBlue $$ SHAMPOO Free and Clear Shampoo, MaxPreps Inc. www.PerBlue HAIR CONDITIONER DHS Conditioning Rinse, Automile & Oncoscope. www.Easy Solutions.Fleksy $$ Exederm Conditioner, Floqq. www.exederm.Fleksy $$$ Free and Clear Conditioner, MaxPreps Inc. www.PerBlue $$ HAIR STYLING PRODUCTS (SPRAY/GEL) Free and Clear Hair Feura Bush (Soft Hold and Firm Hold), MaxPreps Inc. www.PerBlue $$$ Free and Clear Hair Styling Gel, MaxPreps Inc. www.PerBlue $$ MOISTURIZER-OINTMENT Hydrolatum, Gigwell Inc. www.hydrolatum.Fleksy $$ Theraplex Emollient, The TherapAqua Access, Movero Technology. www.theraplex.Fleksy $$$$$ Vaseline 100% Pure Petroleum Jelly, Unilever www.unilever.com $ MOSTURIZING CREAM Aveeno Advanced Care, Moisturizing Cream with Soothing Oat Essence and Ceramides, John & John www.aveeno.Fleksy $$ Cerave Cream, Hashplex. www.Leftronic.Fleksy $$$ Cetaphil Therapeutic Hand Cream, Galderma www.galderma.Fleksy $$ Eucerin Plus Intensive Repair hand Cr??me, Central Logicwrangell medical centerHelios [facility]. www.Networker $$ Neutrogena Turks [place] Islander Formula Hand Cream, Fragrance Free, John & John www.neutrogena.Fleksy $ Nutraplus Cream (urea 10%), Hashplex. www.dscovered $$$$$ Vanicream Skin Cream, MaxPreps Inc. www.Healthcare Interactive.Fleksy $$$ MOISTURIZER-LOTION Avenno Daily Moisturizing Lotion, John & John www.avMoxsieo.Fleksy $$ Cerave Lotion, Hashplex. www.Leftronic.Fleksy $$$ Curel Continuous Comfort Fragrance Free Moisture Lotion, Jakob Brands www.curel.com $$ Lubriderm Daily Moisture Lotion, Fragrance-Free, John & John Lubriderm Intense Skin Repair, Body Lotion with Itch Relief, John & John www.lubriderm.com $$ Vanicream Lite Lotion, MaxPreps Inc. www.Healthcare Interactive.Fleksy $$ Vanicream Vitec Vitamin E. Lotion, MaxPreps Inc. www.Healthcare Interactive.Fleksy $$$ SUNSCREEN Anthelios, La Rafa-Posay www.Joseph-Valeriaay. $$$$$ Cetaphil Daily Facial Moisturizer SPF 15, Galderma www.galderma.com $$$ Elta Block SPF 32 Daily Wear, Rollerscoot. www.elta.net $$ Elta Block SPF 30 Macfarlan, Rollerscoot. www.elta.net $$ Eucerin Everyday Protection Body Lotion SPF 15, Wireless Environment www.Human Factor Analyticserinus.Fleksy $$ Vanicream Sunscreen (SPF 30, SPF 35 Sport, and SPF 60), mimoOn. www.Healthcare Interactive.Fleksy $$ VMV Hypoallergenics [place], VMV Hypoallergenics www.KrushvCameropoallergenics.com $$$$ DEODORANT Almay Hypoallergenic Fragrance Free (Roll-on, Clear Gel, and Solid) Anti- Perspirant/Deoderant, Revlon www.almay.Fleksy $ Certain Dri Antiperspirant Roll-On for Excessive Perspiration, Numark www.certaindri.Fleksy $$ VMV Hypoallergenics Essence of Skin-Saving Body and Bath Anti-Perspirant, VMV Hypoallergenics www.vmvCameropoallergenics.com $$$$ TOOTHPASTE Flavor Free Toothpaste (Original Formula and 2009 Formula RX), available by prescription only, [facility] www.[facility].org/specialty-pharmacy Jaiden's of Main Natural (Fluoride-Free and Anticavity Fluoride) Toothpaste for Children, Ilana Santos, Jaiden's of [place] www.WorldAPP.Fleksy $ VMV Hypoallergenics Essence of Skin-Saving, Simple-Gentle Toothpaste, VMV Hypoallergenics www.Mangrove Systemspoallergenics.Fleksy $$$ LIP BALM Myranda Amezcua Line Fix Lip Repair, Armonia Music www.saliLogon.Fleksy $$ Vanicream Lip Protectant SPF 30, MaxPreps, Inc. www.Healthcare Interactive.Fleksy $ HAND COMMUNITY SERVICES COORDINATOR Hillary Original Instant Hand Title Clerk Automobile Fragrance-Free, B4 Brands www.t6lqprrb.Fleksy $ Hillary Foaming Instant Hand Title Clerk Automobile, B4 Brands www.j1voekja.com $ SHAVING CREAM/GEL Aveeno Therapeutic Shave Gel, Teez.mobi www.aveeno.com $ Vanicream Shave Cream, MaxPreps, Inc. www.Healthcare Interactive.Fleksy $ BABY WIPES CakeStyle [facility] Chlorine Free Baby Wipes, The SunpremeestVirax Group, Inc. 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 I performed the above scribed service and agree with the accuracy of the documentation in this encounter. Reviewed and signed by: Nicole Whitt MD Dermatology [facility] Patient seen and evaluated with staff ammunition assembly laborer: Lizeth Beltran MD Dermatology [facility] * Lizeth Beltran MD - 05/20/2022 11:20 [...] physician's note. Lizeth Beltran MD Staff Physician [facility] Dermatology documented in this encounter Plan of Treatment Upcoming Encounters Date Type Department Care Team (Late st Contact Info) Description 08/29/2024 1:00 PM EST Office Visit Hematology/Oncology at [address] [phone] Carrie Bruno MD [facility] [place] [address] Oliva Mccabe APRN [facility] [place] [address] 09/11/2024 1:00 PM EST Office Visit Dermatology at [facility] [address] [place] [address] Lizeth Hallman MD [facility] [place] [address] documented as of this encounter Visit Diagnoses Diagnosis Rosacea Lentigines Other dyschromia Dermatofibroma Benign neoplasm of skin, site unspecified Xerosis cutis Other specified disease of sebaceous glands Dermatitis Contact dermatitis and other eczema, due to unspecified cause Family history of melanoma Family history of other specified malignant neoplasm SK (seborrheic keratosis) Other seborrheic keratosis documented in this encounter Care Teams Handbag Frames Inspector Relationship Specialty Start Date End Date Catracho Vernon MD PCP - General Family Medicine 04/21/18 documented as of this encounter
--- OUTSIDE RECORDS SUMMARY | 2024-05-21 16:07 | XMS_ITS | Encounter Summary ---
Author Organization [facility] Address [facility] [place] [address] Care Team Providers Care Inweaver Name Role Phone Catracho Vernon MD Primary Care Provider [phone] Encounter Details Date Type Department Care Team (Late st Contact Info) Description 07/15/2021 1:00 PM EST Office Visit Hematology/Oncology at [address] [phone] Carrie Heredia MD [facility] DR [place] [address] Thrombocytopenia Social History Tobacco Use Types Packs/Day [...] were dropping prior to her departure for [facility], so she took dexamethasone 40 mg [...] Covid spike antibody positive, tested 03/03/2021 at [facility] Received third vaccine/booster as well. 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 50th wedding anniversary in 2019! In 2020 her was diagnosed with ALS. Rare ETOH One daughter is teacher in [place]. Her daughter and son-in-law work for [employer] in [employer] [facility]. One son spotter in [place]. . 3 children total and 4 grandchildren total. Retired [employer]. FAMILY HISTORY: Mother: CAD, renal Father: dementia [...] The cyclosporine combinations are more challenging in [facility] as wecannot get levels easily. Torrey [...] her departure for her family vacation on [facility]. She ultimately canceled her scheduled bone marrow [...] Mccall twice, a well-known platelet expert, at [facility]. . She had assumed I had seen [...] This note was written or modified using [employer] voice recognition software. The final note was screened for mistakes. Please excuse any remaining errors. CARRIE HEREDIA MD documented in this encounter Plan of Treatment Upcoming Encounters Date Type Department Care Team (Late st Contact Info) Description 08/29/2024 1:00 PM EST Office Visit Hematology/Oncology at [address] [phone] Carrie Heredia MD [facility] [place] [address] Oliva Mccabe APRN [facility] [place] [address] 09/11/2024 1:00 PM EST Office Visit Dermatology at [facility] [address] [place] [address] Lizeth Hallman MD [facility] [place] [address] documented as of this encounter Visit Diagnoses Diagnosis Thrombocytopenia Thrombocytopenia, unspecified documented in this encounter Care Teams Inweaver Relationship Specialty Start Date End Date Catracho Vernon MD PCP - General Family Medicine 04/21/18 documented as of this encounter
--- OUTSIDE RECORDS SUMMARY | 2024-05-21 16:07 | XMS_ITS | Encounter Summary ---
Author Organization [facility] [place] [address] Care Team Providers Care Dry Molder Name Role Phone Catracho Vernon MD Primary Care Provider [phone] Reason for Visit * Reason Onset Date Comments Labs Only 08/05/2021 Lab Tracking Encounter Details Date Type Department Care Team (Late st Contact Info) Description 08/05/2021 Telephone Hematology/Oncology at [address] [phone] Bird Kohli, RN Labs [...] LABS ORDERED: cbc/diff every 4 weeks at [facility], also needs CMP if getting IVIG MEDICATIONS: [...] in in agreement with plan. Stacey Bhatt SHIM PLUG CUTTER sent labs to review. Labs again next month, going 09/07/21 to [facility]. Results for TORREY CONTEH ( ) as [...] PM EST Office Visit Hematology/Oncology at [address] [phone] Carrie Bruno MD [facility] [place] [address] Oliva Mccabe APRN [facility] [place] [address] 09/11/2024 1:00 PM EST Office Visit Dermatology at [facility] [address] [place] [address] Lizeth Hallman MD [facility] [place] [address] documented as of this encounter Procedures Procedure Name Priority Date/Time Associated Diagnosis Comments CBC (WITH DIFF) Routine 08/03/2021 documented in this encounter Results * CBC (with Diff) (08/03/2021) White Blood Cell 5.06 Hemoglobin 14.5 Hematocrit 44.2 Mean Cell Volume 91.3 Platelet 122 Neutrophil Absolute (ANC) - Automated 3.23 Blood Historical Provider HEMATOLOGY ORDERA BLES documented in this encounter Visit Diagnoses Not on filedocumented in this encounter Care Teams Dry Molder Relationship Specialty Start Date End Date Catracho Vernon MD PCP - General Family Medicine 04/21/18 documented as of this encounter
--- OUTSIDE RECORDS SUMMARY | 2024-05-21 16:07 | XMS_ITS | Encounter Summary ---
Author Organization [facility] [place] [address] Care Team Providers Care Systems Integration Advisor Name Role Phone Catracho Vernon MD Primary Care Provider Reason for Visit * Reason Onset Date Comments Labs Only 11/30/2022 Lab Tracking Encounter Details Date Type Department Care Team (Late st Contact Info) Description 11/30/2022 Telephone Hematology/Oncology at [address] [phone] Bird Kohli, RN Labs Only [...] LABS ORDERED: cbc/diff every 8 weeks at [facility] MEDICATIONS: 07/16/20- dexamethasone 40 IV day [...] 1:00 PM EST Office Visit Hematology/Oncology at [address] [phone] Carrie Bruno MD [facility] [address] HEMATOLOGY [place] [address] Oliva Mccabe, ABDULLAHI [facility] HEMATOLOGY [place] [address] 09/11/2024 1:00 PM EST Office Visit Dermatology at [facility] [address] [place] [phone] Lizeth Hallman MD [facility] [address] DONTA [place] [address] documented as of this encounter Procedures Procedure Name Priority Date/Time Associated Diagnosis Comments CBC (WITH DIFF) Routine 11/30/2022 documented in this encounter Results * CBC (with Diff) (11/30/2022) White Blood Cell 6.83 Red Blood Cell 4.56 Hemoglobin 14.0 Hematocrit 42.2 Mean Cell Volume 93.0 Platelet 139 Neutrophil Absolute (ANC) - Automated 4.52 Blood Historical Provider HEMATOLOGY ORDERA BLES documented in this encounter Visit Diagnoses Not on filedocumented in this encounter Care Teams Systems Integration Advisor Relationship Specialty Start Date End Date Catracho Vernon MD PCP - General Family Medicine 04/21/18 documented as of this encounter
--- OUTSIDE RECORDS SUMMARY | 2024-05-21 16:07 | XMS_ITS | Encounter Summary ---
Author Organization [facility] [place] [address] Care Team Providers Care Real Estate Utilization Officer Name Role Phone Catracho Vernon MD Primary Care Provider [phone] Reason for Visit * Reason Onset Date Comments Labs Only 07/07/2022 Lab Tracking Encounter Details Date Type Department Care Team (Late st Contact Info) Description 07/07/2022 Telephone Hematology/Oncology at [address] [phone] Bird Sandra RN Labs Only [...] LABS ORDERED: cbc/diff every 8 weeks at [facility] MEDICATIONS: 07/16/20- dexamethasone 40 IV day [...] 1:00 PM EST Office Visit Hematology/Oncology at [address] [phone] Carrie Bruno MD [facility] DR HEMATOLOGY [place] [address] Oliva Mccabe APRN [facility] DR HEMATOLOGY [place] [address] 09/11/2024 1:00 PM EST Office Visit Dermatology at [facility] [address] [place] [phone] Lizeth Hallman MD [facility] DR DONTA [place] [address] documented as of this encounter Procedures Procedure Name Priority Date/Time Associated Diagnosis Comments CBC (WITH DIFF) Routine 07/05/2022 COMPREHENSIVE METABOLIC PANEL Routine 07/05/2022 documented in this encounter Results * CBC (with Diff) (07/05/2022) White Blood Cell 5.57 Hemoglobin 13.8 Hematocrit 41.4 Platelet 122 Neutrophil Absolute (ANC) - Automated 3.37 Blood Historical Provider HEMATOLOGY ORDERA BLES * Comprehensive metabolic panel (non-fasting) (07/05/2022) Creatinine 0.9 Blood Historical Provider CHEMISTRY ORDERAB LES documented in this encounter Visit Diagnoses Diagnosis Thrombocytopenia Thrombocytopenia, unspecified documented in this encounter Care Teams Real Estate Utilization Officer Relationship Specialty Start Date End Date Catracho Vernon MD PCP - General Family Medicine 04/21/18 documented as of this encounter
--- OUTSIDE RECORDS SUMMARY | 2024-05-21 16:07 | XMS_ITS | Encounter Summary ---
Author Organization [facility] [place] [address] Care Team Providers Care Environmental Planning Engineer Name Role Phone Catracho Vernon MD Primary Care Provider [phone] Encounter Details Date Type Department Care Team (Latest Contact Info) Description 01/13/2022 Unscheduled Encounter Hematology/Oncology at [address] [phone] [facility] [place] [address] Thrombocytopenia Social History Tobacco Use Types Packs/Day Years Used Date Smoking Tobacco: Never Smokeless Tobacco: Never Sex and Gender Information Value Date Recorded Sex Assigned at Not on file Gender Identity Female 08/21/2020 5:05 PM EST Sexual Orientation Not on file documented as of this encounter Progress Notes * Mariaelena Solomon RD - 01/13/2022 2:50 PM EDT [facility] Initial Assessment Patient Name: Shanita Francisco Diagnosis: Thrombocytopenia Referred by: Dr. Mcnair Assessment: [...] a week at a local exercise program. [facility] has an exercise program that [...] BMI 29.06. 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 Discussed possible goals of drinking 2 L water per day, and increasing fruit and vegetable intake (5 servings/day), as well as enrolling in exercise class at [facility]. Encouraged her to do exercise [...] 1:00 PM EST Office Visit Hematology/Oncology at [address] [phone] Carrie Bruno MD [facility] [place] [address] Oliva Mccabe APRN [facility] [place] [address] 09/11/2024 1:00 PM EST Office Visit Dermatology at [facility] [address] [place] [address] Lizeth Hallman MD [facility] [place] [address] documented as of this encounter Visit Diagnoses Diagnosis Thrombocytopenia Thrombocytopenia, unspecified documented in this encounter Care Teams Environmental Planning Engineer Relationship Specialty Start Date End Date Catracho Vernon MD PCP - General Family Medicine 04/21/18 documented as of this encounter
--- OUTSIDE RECORDS SUMMARY | 2024-05-21 16:07 | XMS_ITS | Encounter Summary ---
Author Organization [facility] [place] [address] Care Team Providers Care Special Warfare Combatant Crewman Name Role Phone Catracho Vernon MD Primary Care Provider [phone] Reason for Visit * Reason Onset Date Comments Labs Only 01/13/2022 Lab tracking Encounter Details Date Type Department Care Team (Late st Contact Info) Description 01/13/2022 Telephone Hematology/Oncology at [address] [phone] Jackie Salinas RN Labs Only [...] cbc/diff every 8 weeks at [facility], MEDICATIONS: 07/16/20- dexamethasone 40 IV day one [...] 1:00 PM EST Office Visit Hematology/Oncology at [address] [phone] Carrie Bruno MD [facility] [address] HEMATOLOGY [place] [address] Oliva Mccabe APRN [facility] [address] [place] [address] 09/11/2024 1:00 PM EST Office Visit Dermatology at [facility] [address] [place] [address] Lizeth Hallman MD [facility] [address] [place] [address] documented as of this encounter Visit Diagnoses Not on filedocumented in this encounter Care Teams Special Warfare Combatant Crewman Relationship Specialty Start Date End Date Catracho Vernon MD PCP - General Family Medicine 04/21/18 documented as of this encounter
--- OUTSIDE RECORDS SUMMARY | 2024-05-21 16:07 | XMS_ITS | Encounter Summary ---
Author Organization [facility] [place] [address] Care Team Providers Care Arc Welder Name Role Phone Catracho Vernon MD Primary Care Provider Reason for Visit * Reason Onset Date Comments Labs Only 09/07/2022 Lab tracking Encounter Details Date Type Department Care Team (Late st Contact Info) Description 09/07/2022 Telephone Hematology/Oncology at [address] [phone] Jackie Salinas RN Labs Only [...] LABS ORDERED: cbc/diff every 8 weeks at [facility] MEDICATIONS: 07/16/20- dexamethasone 40 [...] 1:00 PM EST Office Visit Hematology/Oncology at [address] [phone] Carrie Bruno MD [facility] [address] HEMATOLOGY [place] [address] Oliva Mccabe APRN [facility] [place] [address] 09/11/2024 1:00 PM EST Office Visit Dermatology at [address] [place] [address] Lizeth Hallman MD [facility] [address] [place] [address] documented as of this encounter Procedures Procedure Name Priority Date/Time Associated Diagnosis Comments CBC (WITH DIFF) Routine 09/07/2022 documented in this encounter Results * CBC (with Diff) (09/07/2022) White Blood Cell 4.98 Hemoglobin 13.9 Hematocrit 42.0 Platelet 122 Neutrophil Absolute (ANC) - Automated 2.83 Blood 09/07/2022 Historical Provider HEMATOLOGY ORDERA BLES documented in this encounter Visit Diagnoses Not on filedocumented in this encounter Care Teams Arc Welder Relationship Specialty Start Date End Date Catracho Vernon MD PCP - General Family Medicine 04/21/18 documented as of this encounter
--- OUTSIDE RECORDS SUMMARY | 2024-05-21 16:07 | XMS_ITS | Encounter Summary ---
Author Organization [facility] [place] [address] Care Team Providers Care Unemployment Insurance Hearing Officer Name Role Phone Catracho Vernon MD Primary Care Provider [phone] Reason for Visit * Reason Onset Date Comments Labs Only 05/05/2022 Lab Tracking Encounter Details Date Type Department Care Team (Late st Contact Info) Description 05/05/2022 Telephone Hematology/Oncology at [address] [phone] Bird Kohli, RN Labs Only [...] every 8 weeks at [facility] MEDICATIONS: 07/16/20- dexamethasone 40 IV day one [...] 1:00 PM EST Office Visit Hematology/Oncology at [address] [phone] Carrie Bruno MD [facility] [address] [place] [address] Oliva Mccabe, ABDULLAHI [facility] [place] [address] 09/11/2024 1:00 PM EST Office Visit Dermatology at [place] [address] [place] [address] Lizeth Hallman MD [facility] [address] [place] [address] documented as of this encounter Procedures Procedure Name Priority Date/Time Associated Diagnosis Comments CBC (WITH DIFF) Routine 05/03/2022 documented in this encounter Results * CBC (with Diff) (05/03/2022) White Blood Cell 5.70 Hemoglobin 14.1 Hematocrit 42.6 Platelet 126 Neutrophil Absolute (ANC) - Automated 3.63 Blood Historical Provider HEMATOLOGY ORDERA BLES documented in this encounter Visit Diagnoses Not on filedocumented in this encounter Care Teams Unemployment Insurance Hearing Officer Relationship Specialty Start Date End Date Catracho Vernon MD PCP - General Family Medicine 04/21/18 documented as of this encounter
--- OUTSIDE RECORDS SUMMARY | 2024-05-21 16:07 | XMS_ITS | Encounter Summary ---
Author Organization [facility] [place] [address] Care Team Providers Care Web Design Instructor Name Role Phone Catracho Vernon MD Primary Care Provider [phone] Reason for Visit * Reason Onset Date Comments Labs Only 06/09/2021 Lab Tracking Encounter Details Date Type Department Care Team (Late st Contact Info) Description 06/09/2021 Telephone Hematology/Oncology at [address] [phone] Bird Kohli, RN Labs Only [...] LABS ORDERED: cbc/diff every 4 weeks at [facility], also needs CMP if getting IVIG [...] 1:00 PM EST Office Visit Hematology/Oncology at [address] [phone] Carrie Bruno MD [facility] [address] [place] [address] Oliva Mccabe APRN [facility] [place] [address] 09/11/2024 1:00 PM EST Office Visit Dermatology at [facility] [address] [address] Lizeth Hallman MD [facility] [place] [address] documented as of this encounter Procedures Procedure Name Priority Date/Time Associated Diagnosis Comments CBC (WITH DIFF) Routine 06/08/2021 documented in this encounter Results * CBC (with Diff) (06/08/2021) White Blood Cell 9.01 Hemoglobin 14.0 Hematocrit 42.2 Mean Cell Volume 90.9 Platelet 131 Neutrophil Absolute (ANC) - Automated 6.46 Blood Historical Provider HEMATOLOGY ORDERA BLES documented in this encounter Visit Diagnoses Not on filedocumented in this encounter Care Teams Web Design Instructor Relationship Specialty Start Date End Date Catracho Vernon MD PCP - General Family Medicine 04/21/18 documented as of this encounter
--- OUTSIDE RECORDS SUMMARY | 2024-05-21 16:07 | XMS_ITS | Encounter Summary ---
Author Organization [facility] Address [facility] [place] [address] Care Team Providers Care Dedenter Name Role Phone Catracho Vernon MD Primary Care Provider [phone] Encounter Details Date Type Department Care Team (Late st Contact Info) Description 01/13/2022 2:00 PM EDT Office Visit Hematology/Oncology at [address] [phone] Carrie Heredia MD [facility] [address] HEMATOLOGY [place] [address] Acute ITP Social History Tobacco Use Types [...] were dropping prior to her departure for [facility], so she took dexamethasone 40 mg [...] Covid spike antibody positive, tested 03/03/2021 at [facility] Received third vaccine/booster as well. Her plt have stabilized and she has done remarkably well off all therapy since January. I am presumingthis is a response to her rituximab. No bleeding or bruising. Her has been diagnosed with ALS but still doing well. On a clinical trial at [facility]. Primarily drop foot at first but now with problems with ambulation. Using a walker.. He remains positive andcommitted to managing the diagnosis. 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 50th wedding anniversary in 2018! In 2020 her was diagnosed with ALS. Rare ETOH One daughter is teacher in [place]. Her daughter and son-in-law work for [employer] in [facility]. One son material control associate in [place]. . 3 children total and 4 grandchildren total. Retired [employer]. FAMILY HISTORY: Mother: CAD, renal Father: dementia Sibs: 3 sisters Afib; CAD, DM Children: healthy No autoimmune disorders MEDICATIONS AND ALLERGIES- reviewed at this visit Medications 01/13/22 3047 Medication Sig Taking? hydroCHLOROthiazide (Hydrodiuril) 12.5 mg [...] her departure for her family vacation on [facility]. She ultimately canceled her scheduled bone [...] Mccall twice, a well-known platelet expert, at [facility]. I appreciate his expertise and involvement. ?? [...] CBC (to avoid holidays) ?? Meet w/ Design Coordinator today for Advanced Directive per her request [...] This note was written or modified using [employer] voice recognition software. The final note was screened for mistakes. Please excuse any remaining errors. CARRIE HEREDIA MD documented in this encounter Plan of Treatment Upcoming Encounters Date Type Department Care Team (Late st Contact Info) Description 08/29/2024 1:00 PM EST Office Visit Hematology/Oncology at [address] [phone] Carrie Heredia MD [facility] [address] HEMATOLOGY [place] [address] Oliva Mccabe, ABDLULAHI [facility] DR HEMATOLOGY [place] [address] 09/11/2024 1:00 PM EST Office Visit Dermatology at [facility] [address] [place] [address] Lizeth Hallman MD [facility] DR DONTA [place] [address] documented as of this encounter Procedures Procedure Name Priority Date/Time Associated Diagnosis Comments CBC (WITH DIFF) Routine 12/30/2021 documented in this encounter Results * CBC (with Diff) (12/30/2021) White Blood Cell 5.99 Hemoglobin 13.7 Hematocrit 41.8 Platelet 107 Neutrophil Absolute (ANC) - Automated 3.32 Blood 12/30/2021 Historical Provider HEMATOLOGY ORDERA BLES documented in this encounter Visit Diagnoses Diagnosis Acute ITP Immune thrombocytopenic purpura documented in this encounter Care Teams Dedenter Relationship Specialty Start Date End Date Catracho Vernon MD PCP - General Family Medicine 04/21/18 documented as of this encounter
--- OUTSIDE RECORDS SUMMARY | 2024-05-21 16:07 | XMS_ITS | Encounter Summary ---
Author Organization [facility] [place] [address] Care Team Providers Care Psychiatric Assistant Name Role Phone Catracho Vernon MD Primary Care Provider [phone] Reason for Visit * Reason Onset Date Comments Labs Only 03/03/2022 Lab Tracking Encounter Details Date Type Department Care Team (Late st Contact Info) Description 03/03/2022 Telephone Hematology/Oncology at [address] [phone] Bird Kohli, RN Labs Only [...] ORDERED: cbc/diff every 8 weeks at [facility] MEDICATIONS: 07/16/20- dexamethasone 40 IV [...] 1:00 PM EST Office Visit Hematology/Oncology at [address] [phone] Carrie Bruno MD [facility] DR [place] [address] Oliva Mccabe, ABDULLAHI [facility] [place] [address] 09/11/2024 1:00 PM EST Office Visit Dermatology at [place] [address] [place] [address] Lizeth Hallman MD [facility] [place] [address] documented as of this encounter Procedures Procedure Name Priority Date/Time Associated Diagnosis Comments CBC (WITH DIFF) Routine 03/01/2022 documented in this encounter Results * CBC (with Diff) (03/01/2022) White Blood Cell 5.37 Hemoglobin 14.1 Hematocrit 43.2 Platelet 142 Neutrophil Absolute (ANC) - Automated 3.31 Blood Historical Provider HEMATOLOGY ORDERA BLES documented in this encounter Visit Diagnoses Not on filedocumented in this encounter Care Teams Psychiatric Assistant Relationship Specialty Start Date End Date Catracho Vernon MD PCP - General Family Medicine 04/21/18 documented as of this encounter
--- OUTSIDE RECORDS SUMMARY | 2024-05-21 16:07 | XMS_ITS | Encounter Summary ---
Author Organization [facility] Address [facility] [place] [address] Care Team Providers Care Restaurant Host/Hostess Name Role Phone Catracho Vernon MD Primary Care Provider [phone] Encounter Details Date Type Department Care Team (Late st Contact Info) Description 12/15/2022 11:00 AM EDT Office Visit Hematology/Oncology at [address] [phone] Carrie Heredia MD [facility] [address] [place] [address] Oliva Mccabe APRN [facility] [address] [place] [address] Thrombocytopenia; Acute ITP Social History Tobacco Use [...] Covid spike antibody positive, tested 03/03/2021 at [facility]. Her plt have stabilized and she has done remarkably well off all therapy since January 2021. I am presuming this is a response to her rituximab. She remains under considerable stress at home as her has been diagnosed with ALS. 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 50th wedding anniversary in 2018! In 2020 her was diagnosed with ALS. Rare ETOH One daughter is teacher in [place]. Her daughter and son-in-law work for [employer] in [facility]. One son carpenter ship in [place]. . 3 children total and 4 grandchildren total. Retired [employer]. FAMILY HISTORY: Mother: CAD, renal Father: dementia [...] Aug 2023. Ref: Journal of Hematology 2013 Florentino-Jacque. MM [...] PM EST Office Visit Hematology/Oncology at [address] [phone] Carire Heredia MD [facility] [address] [place] [address] Oliva Mccabe, REMOTE SENSING SCIENTIST [facility] [address] [place] [address] 09/11/2024 1:00 PM EST Office Visit Dermatology at [facility] [address] [place] [address] Lizeth Hallman MD [facility] [place] [address] documented as of this encounter Visit Diagnoses Diagnosis Thrombocytopenia Thrombocytopenia, unspecified Acute ITP Immune thrombocytopenic purpura documented in this encounter Care Teams Restaurant Host/Hostess Relationship Specialty Start Date End Date Catracho Vernon MD PCP - General Family Medicine 04/21/18 documented as of this encounter
--- OUTSIDE RECORDS SUMMARY | 2024-05-21 16:07 | XMS_ITS | Encounter Summary ---
Author Organization [facility] Address [facility] [place] [address] Care Team Providers Care Vp Integrity Name Role Phone Catracho Vernon MD Primary Care Provider [phone] Encounter Details Date Type Department Care Team [...] PM EST Office Visit Hematology/Oncology at [address] [phone] Carrie Bruno MD [facility] [place] [address] Oliva Mccabe, ABDULLAHI [facility] [place] [address] 09/11/2024 1:00 PM EST Office Visit Dermatology at [facility] [address] [place] [address] Lizeth Hallman MD [facility] [place] [address] documented as of this encounter Visit Diagnoses Not on filedocumented in this encounter Care Teams Vp Integrity Relationship Specialty Start Date End Date Catracho Vernon MD PCP - General Family Medicine 04/21/18 documented as of this encounter
--- OUTSIDE RECORDS SUMMARY | 2024-05-21 16:07 | XMS_ITS | Encounter Summary ---
Author Organization [facility] [place] [address] Care Team Providers Care Freight Flagman Name Role Phone Catracho Vernon MD Primary Care Provider [phone] Reason for Visit * Reason Onset Date Comments Labs Only 08/24/2023 Lab tracking Encounter Details Date Type Department Care Team (Late st Contact Info) Description 08/24/2023 Telephone Hematology/Oncology at [address] [phone] Jackie Salinas, RN Labs Only [...] LABS ORDERED: cbc/diff every 3 months at [facility] 08/24/23 MEDICATIONS: 07/16/20- dexamethasone 40 IV [...] 1:00 PM EST Office Visit Hematology/Oncology at [address] [phone] Carrie Bruno MD [facility] H[place]AT[place] [address] Oliva Mccabe APRN [facility] [place]AT[place] [address] 09/11/2024 1:00 PM EST Office Visit Dermatology at [facility] [address] [place] [phone] Lizeth Hallman MD [facility] DR [place] [address] documented as of this encounter Visit Diagnoses Not on filedocumented in this encounter Care Teams Freight Flagman Relationship Specialty Start Date End Date Catracho Vernon MD PCP - General Family Medicine 04/21/18 documented as of this encounter
--- OUTSIDE RECORDS SUMMARY | 2024-05-21 16:07 | XMS_ITS | Encounter Summary ---
Author Organization [facility] [place] [address] Care Team Providers Care Equipment Oiler Name Role Phone Catracho Vernon MD Primary Care Provider [phone] Reason for Visit * Reason Onset Date Comments Labs Only 09/08/2021 Lab Tracking Encounter Details Date Type Department Care Team (Late st Contact Info) Description 09/08/2021 Telephone Hematology/Oncology at [address] [phone] Bird Kohli, RN Labs Only [...] LABS ORDERED: cbc/diff every 8 weeks at [facility], also needs CMP if getting IVIG MEDICATIONS: [...] in in agreement with plan. Stacey Bhatt DIRECTOR OF FINANCE sent labs to review to reports okay [...] 1:00 PM EST Office Visit Hematology/Oncology at [address] [phone] Carrie Bruno MD [facility] [address] [place] [address] Oliva Mccabe, ABDULLAHI [facility] [place] [address] 09/11/2024 1:00 PM EST Office Visit Dermatology at [facility] [address] [place] [phone] Lizeth Hallman MD [facility] [address] documented as of this encounter Procedures Procedure Name Priority Date/Time Associated Diagnosis Comments CBC (WITH DIFF) Routine 09/07/2021 COMPREHENSIVE METABOLIC PANEL Routine 09/07/2021 documented in this encounter Results * CBC (with Diff) (09/07/2021) White Blood Cell 5.52 Hemoglobin 14.2 Hematocrit 43.0 Platelet 125 Neutrophil Absolute (ANC) - Automated 3.32 Blood Historical Provider HEMATOLOGY ORDERA BLES * Comprehensive metabolic panel (non-fasting) (09/07/2021) Blood Urea Nitrogen 23 Creatinine 0.9 Blood Historical Provider CHEMISTRY ORDERAB LES documented in this encounter Visit Diagnoses Not on filedocumented in this encounter Care Teams Equipment Oiler Relationship Specialty Start Date End Date Catracho Vernon MD PCP - General Family Medicine 04/21/18 documented as of this encounter
--- OUTSIDE RECORDS SUMMARY | 2024-05-21 16:07 | XMS_ITS | Encounter Summary ---
Author Organization [facility] [place] [address] Care Team Providers Care Mask Designer Name Role Phone Catracho Vernon MD Primary Care Provider [phone] Reason for Visit * Reason Onset Date Comments Labs Only 11/23/2023 Lab Tracking Encounter Details Date Type Department Care Team (Late st Contact Info) Description 11/23/2023 Telephone Hematology/Oncology at [address] [phone] Bird Kohli, RN Labs Only [...] LABS ORDERED: cbc/diff every 3 months at [facility] of 08/24/23 MEDICATIONS: 07/16/20- dexamethasone [...] 1:00 PM EST Office Visit Hematology/Oncology at [address] [phone] Carrie Bruno MD [facility] [place] [address] Oliva Mccabe APRN [facility] [place] [address] 09/11/2024 1:00 PM EST Office Visit Dermatology at [facility] [address] [place] [phone] Lizeth Hallman MD [facility] [place] [address] documented as of this encounter Procedures Procedure Name Priority Date/Time Associated Diagnosis Comments CBC (WITH DIFF) Routine 11/22/2023 COMPREHENSIVE METABOLIC PANEL Routine 11/22/2023 documented in this encounter Results * CBC (with Diff) (11/22/2023) White Blood Cell 6.99 Red Blood Cell 4.89 Hemoglobin 14.7 Hematocrit 45.1 Platelet 150 Neutrophil Absolute (ANC) - Automated 4.57 Blood Historical Provider HEMATOLOGY ORDERA BLES * Comprehensive metabolic panel (non-fasting) (11/22/2023) Creatinine 1.0 Calcium 10.2 Blood Historical Provider CHEMISTRY ORDERAB LES documented in this encounter Visit Diagnoses Not on filedocumented in this encounter Care Teams Mask Designer Relationship Specialty Start Date End Date Catracho Vernon MD PCP - General Family Medicine 04/21/18 documented as of this encounter
--- OUTSIDE RECORDS SUMMARY | 2024-05-21 16:08 | XMS_ITS | Encounter Summary ---
Author Organization [facility] Address [facility] [place] [address] Care Team Providers Care Director Of Content Marketing Name Role Phone Catracho Vernon MD Primary Care Provider [phone] Encounter Details Date Type Department Care Team (Late st Contact Info) Description 11/26/2020 9:00 AM EDT Office Visit Hematology/Oncology at [address] [phone] Carrie Heredia MD [facility] [address] [place] [address] Stacey Bhatt APRN [facility] [address] [place] [address] Diarrhea, unspecified type Social History Tobacco Use [...] reviewed 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 50th wedding anniversary in 2019! Rare ALFONSO Has children who work in [place] - her daughter and son-in-law work for [employer] in [employer]. 2 boys. 3 children total and 4 grandchildren total. Retired [employer]. FAMILY HISTORY: Mother: CAD, renal Father: dementia [...] area is 1.79 meters squared. GENERAL: Shanita A Nolan appears well and is in no [...] The cyclosporine combinations are more challenging in [facility] as we cannot get levels easily. Shanita [...] This note was written or modified using Cyan voice recognition software. The final note was screened for mistakes. Please excuse any remaining errors. CARRIE HEREDIA MD documented in this encounter Plan of Treatment Upcoming Encounters Date Type Department Care Team (Late st Contact Info) Description 08/29/2024 1:00 PM EST Office Visit Hematology/Oncology at [address] [phone] Carrie Heredia MD [facility] [address] [place] [address] Oliva Mccabe APRN [facility] [place] [address] 09/11/2024 1:00 PM EST Office Visit Dermatology at [place] [address] [place] [address] Lizeth Hallman MD [facility] [place] [address] documented as of this encounter Visit Diagnoses Diagnosis Diarrhea, unspecified type documented in this encounter Care Teams Director Of Content Marketing Relationship Specialty Start Date End Date Catracho Vernon MD PCP - General Family Medicine 04/21/18 documented as of this encounter
--- OUTSIDE RECORDS SUMMARY | 2024-05-21 16:08 | XMS_ITS | Encounter Summary ---
Author Organization [facility] [place] [address] Care Team Providers Care Grooming Assistant Name Role Phone Catracho Vernon MD Primary Care Provider [phone] Reason for Visit * Reason Onset Date Comments Labs Only 12/11/2020 lab tracking Encounter Details Date Type Department Care Team (Late st Contact Info) Description 12/11/2020 Telephone Hematology/Oncology at [address] [phone] Jackie Salinas RN Labs Only (lab tracking) [...] PM EST Office Visit Hematology/Oncology at [address] [phone] Carrie Bruno MD [facility] [address] [place] [address] Oliva Mccabe, ABDULLAHI [facility] [place] [address] 09/11/2024 1:00 PM EST Office Visit Dermatology at [facility] [address] [place] [address] Lizeth Hallman MD [facility] [place] [address] documented as of this encounter Procedures Procedure Name Priority Date/Time Associated Diagnosis Comments CBC (WITH DIFF) Routine 12/11/2020 documented in this encounter Results * CBC (with Diff) (12/11/2020) White Blood Cell 4.94 Hemoglobin 14.5 Hematocrit 43.3 Platelet 44 Neutrophil Absolute (ANC) - Automated 2.89 Blood 12/11/2020 Historical Provider HEMATOLOGY ORDERA BLES documented in this encounter Visit Diagnoses Diagnosis Acute ITP Immune thrombocytopenic purpura Thrombocytopenia Thrombocytopenia, unspecified documented in this encounter Care Teams Grooming Assistant Relationship Specialty Start Date End Date Catracho Vernon MD PCP - General Family Medicine 04/21/18 documented as of this encounter
--- OUTSIDE RECORDS SUMMARY | 2024-05-21 16:08 | XMS_ITS | Encounter Summary ---
Author Organization [facility] [place] [address] Care Team Providers Care Paper Slitter Name Role Phone Catracho Vernon MD Primary Care Provider [phone] Reason for Visit * Reason Onset Date Comments Labs Only 10/27/2020 lab tracking Encounter Details Date Type Department Care Team (Late st Contact Info) Description 10/27/2020 Telephone Hematology/Oncology at [address] [phone] Jackie Salinas RN Labs Only (lab tracking) [...] 1:00 PM EST Office Visit Hematology/Oncology at [address] [phone] Carrie Bruno MD [facility] DR HEMATOLOGY [place] [address] Oliva Mccabe, ARMOURED CAR ESCORT [facility] HEMATOLOGY [place] [address] 09/11/2024 1:00 PM EST Office Visit Dermatology at [facility] [address] [place] [address] Lizeth Hallman MD [facility] DR DONTA [place] [address] documented as of this encounter Procedures Procedure Name Priority Date/Time Associated Diagnosis Comments CBC (WITH DIFF) Routine 10/27/2020 documented in this encounter Results * CBC (with Diff) (10/27/2020) White Blood Cell 4.58 Hemoglobin 14.1 Hematocrit 42.7 Platelet 95 Neutrophil Absolute (ANC) - Automated 2.63 Blood 10/27/2020 Historical Provider HEMATOLOGY ORDERA BLES documented in this encounter Visit Diagnoses Not on filedocumented in this encounter Care Teams Paper Slitter Relationship Specialty Start Date End Date Catracho Vernon MD PCP - General Family Medicine 04/21/18 documented as of this encounter
--- OUTSIDE RECORDS SUMMARY | 2024-05-21 16:08 | XMS_ITS | Encounter Summary ---
Author Organization [facility] Address [facility] [place] [address] Care Team Providers Care Staff Sonographer Name Role Phone Catracho Vernon MD Primary Care Provider [phone] Encounter Details Date Type Department Care Team (Late st Contact Info) Description 10/08/2020 1:00 PM EST TH Visit (TeleHealth) Hematology/Oncology at [address] [phone] Carrie Heredia MD [facility] [address] [place] [address] Acute ITP; Thrombocytopenia Social History Tobacco Use [...] HISTORY- reviewed with 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 50th wedding anniversary in 2019! Rare ETOH Has children who work in [place] - her daughter and son-in-law work for [employer] in [place]. 2 boys. 3 children total and 4 grandchildren total. Retired [employer]. FAMILY HISTORY: Mother: CAD, renal Father: dementia [...] The cyclosporine combinations are more challenging in [facility] as we cannot getlevels easily. Torrey reports [...] her. ?? Ref: Journal of Hematology 2013 [place]Jacque. For now, I agree with continued weekly [...] This note was written or modified using [employer] voice recognition software. The final note was screened for mistakes. Please excuse any remaining errors. I spent 20 min on this telehealth encounter including chart review, time with the patient and documentation. CARRIE HEREDIA MD documented in this encounter Plan of Treatment Upcoming Encounters Date Type Department Care Team (Late st Contact Info) Description 08/29/2024 1:00 PM EST Office Visit Hematology/Oncology at [address] [phone] Carrie Heredia MD [facility] [place] [address] Oliva Mccabe APRN [facility] [address] [place] [address] 09/11/2024 1:00 PM EST Office Visit Dermatology at [facility] [address] [place] [phone] Lizeth Hallman MD [facility] [place] [address] documented as of this encounter Visit Diagnoses Diagnosis Acute ITP Immune thrombocytopenic purpura Thrombocytopenia Thrombocytopenia, unspecified documented in this encounter Care Teams Staff Sonographer Relationship Specialty Start Date End Date Catracho Vernon MD PCP - General Family Medicine 04/21/18 documented as of this encounter
--- OUTSIDE RECORDS SUMMARY | 2024-05-21 16:08 | XMS_ITS | Encounter Summary ---
Author Organization [facility] Address [facility] [place] [address] Care Team Providers Care Program Officer Name Role Phone Catracho Vernon MD Primary Care Provider [phone] Encounter Details Date Type Department Care Team (Late st Contact Info) Description 01/07/2021 10:30 AM EDT Office Visit Hematology/Oncology at [address] [phone] Stacey Bhatt, GEAR ROOM KEEPER [facility] [place] [address] Thrombocytopenia Social History Tobacco Use Types Packs/Day [...] this encounter Progress Notes * Stacey Bhatt, GEAR ROOM KEEPER - 01/07/2021 10:30 AM EDT Subjective: Patient [...] 1:00 PM EST Office Visit Hematology/Oncology at [address] [phone] Carrie Bruno MD [facility] [address] [place] [address] Oliva Mccabe APRN [facility] [place] [address] 09/11/2024 1:00 PM EST Office Visit Dermatology at [facility] [address] [place] [phone] Lizeth Hallman MD [facility] [place] [address] documented as of this encounter Visit Diagnoses Diagnosis Thrombocytopenia Thrombocytopenia, unspecified documented in this encounter Care Teams Program Officer Relationship Specialty Start Date End Date Catracho Vernon MD PCP - General Family Medicine 04/21/18 documented as of this encounter
--- OUTSIDE RECORDS SUMMARY | 2024-05-21 16:08 | XMS_ITS | Encounter Summary ---
Author Organization [facility] [place] [address] Care Team Providers Care Care Team Coordinator Scheduler Name Role Phone Catracho Vernon MD Primary Care Provider [phone] Reason for Referral * Diagnostic Test (Routine) - Closed Specialty Diagnoses / Procedures Referred By Contac t Referred To Contact Radiology Diagnoses Thrombocytopenia Procedures CT Chest Abdomen Pelvis w Contrast (Generic) Carrie Heredia MD [facility] [place] [address] [facility] [place] [address] Referral ID Status Reason Start Date Expiration Date V isits Requested Visits Authorized [id number] Closed Specialty Service Requested 02/04/2021 08/07/2022 1 1 * Consultation (Routine) - Closed Specialty Diagnoses / Procedures Referred By Contac t Referred To Contact General Surgery Diagnoses Thrombocytopenia Carrie Heredia MD [facility] [place] [address] Ramiro Ley MD [facility] [place] [address] Referral ID Status Reason Start Date Expiration Date V isits Requested Visits Authorized [id number] Closed Consult, Test & Treat 02/04/2021 02/04/2022 1 1 Encounter Details Date Type Department Care Team (Late st Contact Info) Description 02/04/2021 9:30 AM EDT Office Visit Hematology/Oncology at [address] [phone] Carrie Heredia MD [facility] [place] [address] Stacey Bhatt, WIG DRESSER [facility] [place] [address] Thrombocytopenia Social History Tobacco Use Types Packs/Day [...] HISTORY- reviewed with significant 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 50th wedding anniversary in 2019! Rare ALFONSO Has children who work in [place] - her daughter and son-in-law work for [employer] in [place]. 2 boys. 3 children total and 4 grandchildren total. Retired [employer]. FAMILY HISTORY: Mother: CAD, renal Father: dementia Sibs: 3 sisters Afib; CAD, DM Children: healthy No autoimmune disorders MEDICATIONS AND ALLERGIES- reviewed at this visit Medications 02/04/21 8572 Medication Sig Taking? ergocalciferol, vitamin D2, (VITAMIN [...] The cyclosporine combinations are more challenging in [facility] as wecannot get levels easily. Shanita reports that for a week after each Dex she feels like I am in a different world unstable onher feet, and lightheaded. Dizzy. 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 Shereviewed her understanding, which was quite accurate. 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 She has been getting 100 mg per [...] splenectomy. Finally she will be gone on [employer] the last week of January. So work-up will schedule labs at [facility] and a CAT scan of the [...] January. ?? Labs and CT CAP at [facility] week of 03/02 - cbc, cmp, ldh, COVID spike ab test. I discussed all of the above with the patient and all of her questions were answered. Support and counseling given as appropriate. Shanita Francisco knows that she can call us any time with questions orconcerns. This note was written or modified using [employer] voice recognition software. The final note was screened for mistakes. Please excuse any remaining errors. CARRIE HEREDIA MD documented in this encounter Plan of Treatment Upcoming Encounters Date Type Department Care Team (Late st Contact Info) Description 08/29/2024 1:00 PM EST Office Visit Hematology/Oncology at [address] [phone] Carrie Heredia MD [facility] [place] [address] Oliva Mccabe, ABDULLAHI [facility] [place] [address] 09/11/2024 1:00 PM EST Office Visit Dermatology at [facility] [address] [place] [address] Lizeth Hallman MD [facility] [place] [address] Scheduled Referrals Name Type Priority Associated Diagnoses [...] who have questions please contact the health rn urgent care that requested your imaging first. ? Electronically signed by: Camden Barnes MD, [facility] ([phone]), at 03/03/2021 10:34 AM Narrative 03/03/2021 10:34 AM EDT EXAMINATION: CT [...] patients who have questions please contactthe health rn urgent care that requested your imaging first. Electronically signed by: Camden Barnes MD, [facility]([phone]), at 03/03/2021 10:34 AM Carrie Heredia MD [facility] ORDERABLE S * COVID-19 Rob Antibody (03/03/2021 7:27 AM EDT) SARS-CoV-2 Rob Ab Detected [facility] Comment: This is [...] be due to a past infection with jzo-MSWX-MbO-2 coronavirus strains, such as coronavirus HKU1, NL63, OC43, or 229E. This test was performed using the Elecsys Hvra-AXBF-WwW-2 S total antibody assay on the Rafa Delon e801 analyzer. This serology test is available following FDA Emergency Use Authorization, however it has not been reviewed by the FDA, nor is it FDA cleared or approved. The performance characteristics of this test were determined by the Department of Pathology and Laboratory Medicine at [facility]. The laboratory is certified under the Clinical [...] fact sheets at the following FDA website: https://www.fda.gov/medical-devices/dqvbihjmcqp-jfutdne-8124-maldf-22-puqgxfxfh- use-a krdvoylncumag-juftsvn-asnmsfr/mywoz-zxqisocaxxi-mpxk Blood 03/03/2021 7:27 AM EDT 03/03/2021 7:48 AM EDT Carrie Heredia [place] [address] * Lactate Dehydrogenase (03/03/2021 7:27 AM EDT) Lactate Dehydrogenase 177 110 - 220 unit/L [facility] Blood 03/03/2021 7:27 AM EDT 03/03/2021 7:48 AM EDT Narrative Resulting Agency Comment Spec In Lab Carrie Heredia MD CHEMISTRY ORDERA PENG [facility] [place] [address] * Comprehensive metabolic panel (non-fasting) (03/03/2021 7:27 AM EDT) Pathologist [facility] Glucose 100 65 - 199 mg/dL [facility] Comment:Diabetes: >=200 mg/d L plus symptoms Blood Urea Nitrogen 17 8 - 18 mg/dL [facility] Creatinine 0.86 0.70 - 1.20 mg/dL [facility] Sodium 142 135 - 145 mmol/L [facility] Potassium 3.6 3.5 - 5.0 mmol/L [facility] Comment: Please note: ??Patients with WBC >100,000 may have falsely elevated Potassium levels. ??For accurate Potassium quantification in these patients send serum separator tube (gold top) for subsequent determinations. ??Contact the Clinical Chemistry Laboratory if there are any questions. Chloride 106 98 - 107 mmol/L [facility] Carbon Dioxide 26 22 - 31 mmol/L [facility] Anion Gap 10 5 - 15 mmol/L [facility] Calcium 9.9 8.5 - 10.5 mg/dL [facility] Protein, Total 6.7 6.1 - 8.0 gm/dL [facility] Albumin 4.0 3.2 - 5.2 gm/dL [facility] Aspartate Aminotransferase 15 0 - 30 unit/L [facility] Alanine Aminotransferase 25 0 - 30 unit/L [facility] Alkaline Phosphatase 85 35 - 105 unit/L [facility] Bilirubin, Total 0.2 0.2 - 1.3 mg/dL [facility] Est Glomerular Filtration Rate 65 >=60 mL/min/1. 73 m?? [facility] Comment: This patient? [...] Lab Carrie Heredia MD CHEMISTRY ORDERA BLES [facility] [place] [phone] documented in this encounter Visit Diagnoses Diagnosis Thrombocytopenia Thrombocytopenia, unspecified Thrombocytopenia Thrombocytopenia, unspecified documented in this encounter Care Teams Care Team Coordinator Scheduler Relationship Specialty Start Date End Date Catracho Vernon MD PCP - General Family Medicine 04/21/18 documented as of this encounter
--- OUTSIDE RECORDS SUMMARY | 2024-05-21 16:08 | XMS_ITS | Encounter Summary ---
Author Organization [facility] [place] [address] Care Team Providers Care Truck Rental Service Attendant Name Role Phone Catracho Vernon MD Primary Care Provider [phone] Reason for Visit * Reason Comments IV Medication Rituxan * Treatment/Therapy Plan Authorization (Routine) - Closed Specialty Diagnoses / Procedures Referred By Edson evans Referred To Contact Diagnoses Thrombocytopenia Stacey Bhatt, ABDULLAHI [facility] DR [place] [address] Referral ID Status Reason Start Date Expiration Date Visits Re quested Visits Authorized [id number] Closed 01/14/2021 01/14/2022 99 99 Encounter Details Date Type Department Care Team (Late st Contact Info) Description 02/03/2021 8:00 AM EDT Infusion Hematology Oncology at [address] [phone] Thrombocytopenia Social History Tobacco Use Types Packs/Day [...] patient's height, weight and BSA by Madison Corrales RN & On-site pharmicist. REACTIONS (DESCRIPTION, TIME, INTERVENTION AND EFFECTIVENESS) none ASSESSMENT Shanita Noel Francisco was awake, alert and tolerated treatment well. PLAN Return to clinic as scheduled. documented in this encounter Plan of Treatment Upcoming Encounters Date Type Department Care Team (Late st Contact Info) Description 08/29/2024 1:00 PM EST Office Visit Hematology/Oncology at [address] [phone] Carrie Bruno MD [facility] H[place]AT[place] [address] Oliva Mccabe APRN [facility] [place] [address] 09/11/2024 1:00 PM EST Office Visit Dermatology at [facility] [address] [place] [address] Lizeth Hallman MD [facility] [place] [address] documented as of this encounter Visit Diagnoses [...] mg documented in this encounter Care Teams Truck Rental Service Attendant Relationship Specialty Start Date End Date Catrcaho Vernon MD PCP - General Family Medicine 04/21/18 documented as of this encounter
--- OUTSIDE RECORDS SUMMARY | 2024-05-21 16:08 | XMS_ITS | Encounter Summary ---
Author Organization [facility] Address [facility] [place] [address] Care Team Providers Care Community Planner Name Role Phone Catracho Vernon MD Primary Care Provider [phone] Reason for Visit * Reason Comments IV Medication IVIG second time rat e to max rate of 0.033 mL/kg/min * Treatment/Therapy Plan Authorization (Routine) - Pending Review Specialty Diagnoses / Procedures Referred By Edson t Referred To Contact Diagnoses Thrombocytopenia Carrie Bruno MD [facility] [address] [place] [address] Referral ID Status Reason Start Date Expiration Date V isits Requested Visits Authorized [id number] Pending Review 09/17/2020 09/17/2021 99 99 Encounter Details Date Type Department Care Team (Late st Contact Info) Description 01/09/2021 8:00 AM EDT Infusion Hematology Oncology at [address] [phone] Thrombocytopenia Social History Tobacco Use [...] PM EST Office Visit Hematology/Oncology at [address] [phone] Carrie Bruno MD [facility] HEMATOLOGY [place] [address] Oliva Mccabe APRN [facility] HEMATOLOGY [place] [address] 09/11/2024 1:00 PM EST Office Visit Dermatology at [facility] [address] [place] [address] Lizeth Hallman MD [facility] [address] [place] [address] documented as of this encounter Visit Diagnoses Diagnosis Thrombocytopenia Thrombocytopenia, unspecified documented in this encounter Administered Medications Inactive Administered Medications - up to 3 most recent administrations Medication Order [facility] Action Action Date Dose Rate Site acetaminophen [...] require approval by P&T Chair or On-Call Bulk System Operator. *Idiopathic thrombocytopenic purpura *, What is the [...] require approval by P&T Chair or On-Call Bulk System Operator. *Idiopathic thrombocytopenic purpura *, What is the maximum rate of administration? 0.04 mL/kg/min (for idiopathic thrombocytopenia or any patient with renal insufficiency or any patient greater than or equal to 65 years old) New Bag 01/09/2021 10:04 AM EDT 40 g documented in this encounter Care Teams Community Planner Relationship Specialty Start Date End Date Catracho Vernon MD PCP - General Family Medicine 04/21/18 documented as of this encounter
--- OUTSIDE RECORDS SUMMARY | 2024-05-21 16:08 | XMS_ITS | Encounter Summary ---
Author Organization [facility] [place] [address] Care Team Providers Care Histology Tech Name Role Phone Catracho Vernon MD Primary Care Provider [phone] Reason for Visit * Reason Onset Date Comments Labs Only 09/29/2020 lab tracking Encounter Details Date Type Department Care Team (Late st Contact Info) Description 09/29/2020 Telephone Hematology/Oncology at [address] [phone] Jackie Salinas RN Labs Only [...] 1:00 PM EST Office Visit Hematology/Oncology at [address] [phone] Carrie Bruno MD [facility] [address] [place] [address] Oliva Mccabe APRN [facility] [place] [address] 09/11/2024 1:00 PM EST Office Visit Dermatology at [facility] [address] [place] [address] Lizeth Hallman MD [facility] [place] [address] documented as of this encounter Procedures Procedure Name Priority Date/Time Associated Diagnosis Comments CBC (WITH DIFF) Routine 09/29/2020 documented in this encounter Results * CBC (with Diff) (09/29/2020) White Blood Cell 4.88 Hemoglobin 13.8 Hematocrit 42.4 Platelet 150 Neutrophil Absolute (ANC) - Automated 2.72 Blood 09/29/2020 Historical Provider HEMATOLOGY ORDERA BLES documented in this encounter Visit Diagnoses Not on filedocumented in this encounter Care Teams Histology Tech Relationship Specialty Start Date End Date Catracho Vernon MD PCP - General Family Medicine 04/21/18 documented as of this encounter
--- OUTSIDE RECORDS SUMMARY | 2024-05-21 16:08 | XMS_ITS | Encounter Summary ---
Author Organization [facility] [place] [address] Care Team Providers Care Aircraft Parts Assembler Name Role Phone Catracho Vernon MD Primary Care Provider [phone] Reason for Visit * Reason Onset Date Comments Labs Only 01/15/2021 lab tracking Encounter Details Date Type Department Care Team (Late st Contact Info) Description 01/15/2021 Telephone Hematology/Oncology at [address] [phone] Jackie Salinas RN Labs Only [...] DIAGNOSIS: ITP LABS ORDERED: cbc/diff Weekly at [facility], also needs CMP if getting IVIG [...] 1:00 PM EST Office Visit Hematology/Oncology at [address] [phone] Carrie Bruno MD [facility] HEMATOLOGY [place] [address] Oliva Mccabe APRN [facility] HEMATOLOGY [place] [address] 09/11/2024 1:00 PM EST Office Visit Dermatology at [facility] [address] [place] [address] Lizeth Hallman MD [facility] [place] [address] documented as of this encounter Procedures Procedure Name Priority Date/Time Associated Diagnosis Comments CBC (WITH DIFF) Routine 01/15/2021 documented in this encounter Results * CBC (with Diff) (01/15/2021) White Blood Cell 3.51 Hemoglobin 14.4 Hematocrit 43.5 Platelet 92 Neutrophil Absolute (ANC) - Automated 1.94 Blood 01/15/2021 Historical Provider HEMATOLOGY ORDERA BLES documented in this encounter Visit Diagnoses Not on filedocumented in this encounter Care Teams Aircraft Parts Assembler Relationship Specialty Start Date End Date Catracho Vernon MD PCP - General Family Medicine 04/21/18 documented as of this encounter
--- OUTSIDE RECORDS SUMMARY | 2024-05-21 16:08 | XMS_ITS | Encounter Summary ---
Author Organization [facility] [place] [address] Care Team Providers Care Painting Instructor Name Role Phone Catracho Vernon MD Primary Care Provider [phone] Reason for Visit * Reason Onset Date Comments Labs Only 10/20/2020 Lab Tracking Encounter Details Date Type Department Care Team (Late st Contact Info) Description 10/20/2020 Telephone Hematology Oncology at [address] [phone] Ebony Kendall, RN Labs Only (Lab Tracking) [...] 10/20/2020 12:34 PM EDT LAB TRACKING Torrey Francisco : 1945 DIAGNOSIS: ITP LABS ORDERED: cbc diff mondays MEDICATIONS: 07/16/20-dexamethasone 40 IV day one then daily for 3 days 08/05/20-08/08/20 dexamethasone 40 mg po daily Assessment/Plan: Labs sent to Dr. Bruno to review. Spoke to Torrey. Labs again in one week. Patient agrees with plan. Results for WEROTORREY Noel ( ) as of 10/20/2020 12:35 [...] 1:00 PM EST Office Visit Hematology/Oncology at [address] [phone] Carrie Bruno MD [facility] DR HEMATOLOGY [place] [address] Oliva Mccabe APRN [facility] HEMATOLOGY [place] [address] 09/11/2024 1:00 PM EST Office Visit Dermatology at [facility] [address] [place] [address] Lizeth Hallman MD [facility] DR DONTA [place] [address] documented as of this encounter Procedures Procedure Name Priority Date/Time Associated Diagnosis Comments CBC (WITH DIFF) Routine 10/20/2020 documented in this encounter Results * CBC (with Diff) (10/20/2020) White Blood Cell 5.38 Red Blood Cell 4.65 Hemoglobin 14.0 Hematocrit 43.1 Platelet 95 Neutrophil Absolute (ANC) - Automated 3.28 Blood 10/20/2020 Carrie Bruno MD HEMATOLOGY ORDER JAMIE documented in this encounter Visit Diagnoses Not on filedocumented in this encounter Care Teams Painting Instructor Relationship Specialty Start Date End Date Catracho Vernon MD PCP - General Family Medicine 04/21/18 documented as of this encounter
--- OUTSIDE RECORDS SUMMARY | 2024-05-21 16:08 | XMS_ITS | Encounter Summary ---
Author Organization [facility] [place] [address] Care Team Providers Care Ui Engineer Name Role Phone Catracho Vernon MD Primary Care Provider [phone] Reason for Visit * Reason Onset Date Comments Labs Only 09/01/2020 lab tracking Encounter Details Date Type Department Care Team (Late st Contact Info) Description 09/01/2020 Telephone Hematology/Oncology at [address] [phone] Jackie Salinas RN Labs Only [...] 1:00 PM EST Office Visit Hematology/Oncology at [address] [phone] Carrie Bruno MD [facility] DR HEMATOLOGY [place] [address] Oliva Mccabe APRN [facility] [address] HEMATOLOGY [place] [address] 09/11/2024 1:00 PM EST Office Visit Dermatology at [place] [address] [place] [address] Lizeth Hallman MD [facility] DR DON[address] [place] [address] documented as of this encounter Procedures Procedure Name Priority Date/Time Associated Diagnosis Comments CBC (WITH DIFF) Routine 09/01/2020 GLUCOSE Routine 09/01/2020 documented in this encounter Results * Glucose, random (09/01/2020) Glucose Wh Bl 164 Blood 09/01/2020 Historical Provider CHEMISTRY ORDERAB LES * CBC (with Diff) (09/01/2020) White Blood Cell 9.12 Hemoglobin 14.2 Hematocrit 42.9 Platelet 198 Neutrophil Absolute (ANC) - Automated 7.73 Creatinine 0.9 Alanine Aminotransferase 134 Aspartate Aminotransferase 32 Alkaline Phosphatase 74 Blood 09/01/2020 Historical Provider HEMATOLOGY ORDERA BLES documented in this encounter Visit Diagnoses Not on filedocumented in this encounter Care Teams Ui Engineer Relationship Specialty Start Date End Date Catracho Vernon MD PCP - General Family Medicine 04/21/18 documented as of this encounter
--- OUTSIDE RECORDS SUMMARY | 2024-05-21 16:08 | XMS_ITS | Encounter Summary ---
Author Organization [facility] Address [facility] [place] [address] Care Team Providers Care Tube Balancer Name Role Phone Catracho Vernon MD Primary Care Provider [phone] Reason for Visit * Reason Comments Chemotherapy Rituxan, Cycle 2 * Treatment/Therapy Plan Authorization (Routine) - Closed Specialty Diagnoses / Procedures Referred By Edson t Referred To Contact Diagnoses Thrombocytopenia Stacey Bhatt, MOLD YARD SUPERVISOR [facility] DR HEMATOLOGY [place] [address] Referral ID Status Reason Start Date Expiration Date Visits Re quested Visits Authorized [id number] Closed 01/14/2021 01/14/2022 99 99 Encounter Details Date Type Department Care Team (Late st Contact Info) Description 01/26/2021 8:00 AM EDT Infusion Hematology Oncology at [address] [phone] Thrombocytopenia Social History Tobacco Use [...] 1:00 PM EST Office Visit Hematology/Oncology at [address] [phone] Carrie Bruno MD [facility] HEMATOLOGY [place] [address] Oliva Mccabe APRN [facility] HEMATOLOGY [place] [address] 09/11/2024 1:00 PM EST Office Visit Dermatology at [facility] [address] [place] [phone] Lizeth Hallman MD [facility] [address] DONTA [place] [address] documented as of this encounter Visit Diagnoses [...] mg documented in this encounter Care Teams Tube Balancer Relationship Specialty Start Date End Date Catracho Vernon MD PCP - General Family Medicine 04/21/18 documented as of this encounter
--- OUTSIDE RECORDS SUMMARY | 2024-05-21 16:08 | XMS_ITS | Encounter Summary ---
Author Organization [facility] [place] [address] Care Team Providers Care Pattern Marking Supervisor Name Role Phone Catracho Vernon MD Primary Care Provider [phone] Reason for Visit * Reason Onset Date Comments Labs Only 10/06/2020 lab tracking Encounter Details Date Type Department Care Team (Late st Contact Info) Description 10/06/2020 Telephone Hematology/Oncology at [address] [phone] Jackie Salinas RN Labs Only (lab tracking) [...] PM EST Office Visit Hematology/Oncology at [address] [phone] Carrie Bruno MD [facility] DR HEMATOLOGY [place] [address] Oliva Mccabe APRN [facility] HEMATOLOGY [place] [address] 09/11/2024 1:00 PM EST Office Visit Dermatology at [address] [phone] Lizeth Hallman MD [facility] DR DONTA [place] [address] documented as of this encounter Procedures Procedure Name Priority Date/Time Associated Diagnosis Comments CBC (WITH DIFF) Routine 10/06/2020 documented in this encounter Results * CBC (with Diff) (10/06/2020) White Blood Cell 5.1 Hemoglobin 14.1 Hematocrit 43.0 Platelet 129 Neutrophil Absolute (ANC) - Automated 3 Blood 10/06/2020 Historical Provider HEMATOLOGY ORDERA BLES documented in this encounter Visit Diagnoses Not on filedocumented in this encounter Care Teams Pattern Marking Supervisor Relationship Specialty Start Date End Date Catracho Vernon MD PCP - General Family Medicine 04/21/18 documented as of this encounter
--- OUTSIDE RECORDS SUMMARY | 2024-05-21 16:08 | XMS_ITS | Encounter Summary ---
Author Organization [facility] [place] [address] Care Team Providers Care Bag Press Operator Name Role Phone Catracho Vernon MD Primary Care Provider [phone] Reason for Visit * Reason Onset Date Comments Labs Only 02/03/2021 lab tracking Encounter Details Date Type Department Care Team (Late st Contact Info) Description 02/03/2021 Telephone Hematology/Oncology at [address] [phone] Jackie Salinas RN Labs Only [...] DIAGNOSIS: ITP LABS ORDERED: cbc/diff Weekly at [facility], also needs CMP if getting IVIG MEDICATIONS: 07/16/20- dexamethasone 40 IV day one then daily for 3 days 08/05/20-08/08/20 dexamethasone 40 mg po daily IVIG- 12/15,12/16,01/08, 01/09 Rituxan to start 01/16 Assessment/Plan: Labs sent to Dr. Bruno and Manfred Bhatt AUGER OPERATOR. Pt getting third dose of rituxan today. [...] 1:00 PM EST Office Visit Hematology/Oncology at [address] [phone] Carrie Bruno MD [facility] DR HEMATOLOGY [place] [address] Oliva Mccabe, ABDULLAHI [facility] HEMATOLOGY [place] [address] 09/11/2024 1:00 PM EST Office Visit Dermatology at [place] [address] [place] [address] Lizeth Hallman MD [facility] [address] [place] [address] documented as of this encounter Procedures Procedure Name Priority Date/Time Associated Diagnosis Comments CBC (WITH DIFF) Routine 02/03/2021 documented in this encounter Results * CBC (with Diff) (02/03/2021) White Blood Cell 4.21 Hemoglobin 13.5 Hematocrit 40.9 Platelet 34 Neutrophil Absolute (ANC) - Automated 2.29 Blood 02/03/2021 Historical Provider HEMATOLOGY ORDERA BLES documented in this encounter Visit Diagnoses Not on filedocumented in this encounter Care Teams Bag Press Operator Relationship Specialty Start Date End Date Catracho Vernon MD PCP - General Family Medicine 04/21/18 documented as of this encounter
--- OUTSIDE RECORDS SUMMARY | 2024-05-21 16:08 | XMS_ITS | Encounter Summary ---
Author Organization [facility] [place] [place] [address] Care Team Providers Care Hedis Manager Name Role Phone Catracho Vernon MD Primary Care Provider Reason for Visit * Reason Onset Date Comments Labs Only 12/15/2020 lab tracking Encounter Details Date Type Department Care Team (Late st Contact Info) Description 12/15/2020 Telephone Hematology Oncology at [address] [phone] Jackie Salinas RN Labs Only (lab tracking) [...] PM EST Office Visit Hematology/Oncology at [address] [phone] Carrie Bruno MD [facility] [place] [address] Oliva Mccabe, ABDULLAHI [facility] [place] [address] 09/11/2024 1:00 PM EST Office Visit Dermatology at [facility] [address] [place] [address] Lizeth Hallman MD [facility] [place] [address] documented as of this encounter Procedures Procedure Name Priority Date/Time Associated Diagnosis Comments CBC (WITH DIFF) Routine 12/15/2020 documented in this encounter Results * CBC (with Diff) (12/15/2020) White Blood Cell 4.55 Hemoglobin 13.6 Hematocrit 41.9 Platelet 33 Neutrophil Absolute (ANC) - Automated 2.55 Blood Urea Nitrogen 24 Creatinine 0.9 Blood 12/15/2020 Historical Provider HEMATOLOGY ORDERA BLES documented in this encounter Visit Diagnoses Not on filedocumented in this encounter Care Teams Hedis Manager Relationship Specialty Start Date End Date Catracho Vernon MD PCP - General Family Medicine 04/21/18 documented as of this encounter
--- OUTSIDE RECORDS SUMMARY | 2024-05-21 16:08 | XMS_ITS | Encounter Summary ---
Author Organization [facility] [place] [address] Care Team Providers Care Electronic Gluing Machine Operator Name Role Phone Catracho Vernon MD Primary Care Provider [phone] Reason for Visit * Reason Onset Date Comments Labs Only 01/06/2021 Lab Tracking Encounter Details Date Type Department Care Team (Late st Contact Info) Description 01/06/2021 Telephone Hematology/Oncology at [address] [phone] Bird Kohli, RN Labs Only [...] ITP LABS ORDERED: cbc/diff Weekly at [facility], also needs CMP if getting IVIG MEDICATIONS: 07/16/20- dexamethasone 40 IV day one then daily for 3 days 08/05/20-08/08/20 dexamethasone 40 mg po daily Assessment/Plan: Pt seen in clinic by Stacey Bhatt APRN to discuss POC for low PLTs. Will give IVIGtomo and Tuesday. Then will start weekly Rituxan [...] PM EST Office Visit Hematology/Oncology at [address] [phone] Carrie Bruno MD [facility] [place] [address] Oliva Mccabe APRN [facility] [place] [address] 09/11/2024 1:00 PM EST Office Visit Dermatology at [facility] [address] [place] [address] Lizeth Hallman MD [facility] [place] [address] documented as of this encounter Procedures Procedure Name Priority Date/Time Associated Diagnosis Comments CBC (WITH DIFF) Routine 01/06/2021 documented in this encounter Results * (ABNORMAL) CBC (with Diff) (01/06/2021) White Blood Cell 4.12 Hemoglobin 13.7 Hematocrit 41.3 Mean Cell Volume 88.6 Platelet 28(ExtLL) Neutrophil Absolute (ANC) - Automated 2.26 Blood Carrie Bruno MD HEMATOLOGY ORDER JAMIE documented in this encounter Visit Diagnoses Not on filedocumented in this encounter Care Teams Electronic Gluing Machine Operator Relationship Specialty Start Date End Date Catracho Vernon MD PCP - General Family Medicine 04/21/18 documented as of this encounter
--- OUTSIDE RECORDS SUMMARY | 2024-05-21 16:08 | XMS_ITS | Encounter Summary ---
Author Organization [facility] [place] [address] Care Team Providers Care Supervisor Enrobing Name Role Phone Catracho Vernon MD Primary Care Provider Reason for Visit * Reason Comments Chemotherapy rituxan day 1 * Treatment/Therapy Plan Authorization (Routine) - Closed Specialty Diagnoses / Procedures Referred By Edson evans Referred To Contact Diagnoses Thrombocytopenia Stacey Bhatt, PAINTER TUMBLING BARREL [facility] DR HEMATOLOGY [place] [address] Referral ID Status Reason Start Date Expiration Date Visits Re quested Visits Authorized [id number] Closed 01/14/2021 01/14/2022 99 99 Encounter Details Date Type Department Care Team (Late st Contact Info) Description 01/16/2021 8:00 AM EDT Infusion Hematology Oncology at [address] [phone] Thrombocytopenia Social History Tobacco Use [...] TIME TREATMENT STARTED: 0800 TIME TREATMENT ENDED: 105 DIAGNOSIS: ITP PROTOCOL:na CYCLE #: 1 REASON [...] TIME, INTERVENTION AND EFFECTIVENESS) none ASSESSMENT Shanita Francisco was awake, alert and he tolerated treatment well. PLAN Return to clinic on 01/26/21 with labs before documented in this encounter Plan of Treatment Upcoming Encounters Date Type Department Care Team (Late st Contact Info) Description 08/29/2024 1:00 PM EST Office Visit Hematology/Oncology at [address] [phone] Carrie Bruno MD [facility] DR HEMATOLOG[place] [address] Oliva Mccabe APRN [facility] [place] [address] 09/11/2024 1:00 PM EST Office Visit Dermatology at [facility] [address] [place] [phone] Lizeth Hallman MD [facility] [place] [address] documented as of this encounter Visit Diagnoses [...] mg documented in this encounter Care Teams Supervisor Enrobing Relationship Specialty Start Date End Date Catracho Vernon MD PCP - General Family Medicine 04/21/18 documented as of this encounter
--- OUTSIDE RECORDS SUMMARY | 2024-05-21 16:08 | XMS_ITS | Encounter Summary ---
Author Organization [facility] Address [facility] [address] Care Team Providers Care Armored Car Guard And Driver Name Role Phone Catracho Vernon MD Primary Care Provider [phone] Reason for Referral * Diagnostic Test (Routine) - Closed Specialty Diagnoses / Procedures Referred By Contac t Referred To Contact Radiology Diagnoses Thrombocytopenia Procedures CT Chest Abdomen Pelvis w Contrast (Generic) Carrie Bruno MD [facility] DR H[place] [address] [facility] [place] [address] Referral ID Status Reason Start Date Expiration Date V isits Requested Visits Authorized [id number] Closed Specialty Service Requested 02/04/2021 08/07/2022 1 1 Reason for Visit * Diagnostic Test (Routine) - Closed Specialty Diagnoses / Procedures Referred By Contac t Referred To Contact Radiology Diagnoses Thrombocytopenia Procedures CT Chest Abdomen Pelvis w Contrast (Generic) Carrie Bruno MD [facility] DR HEMATOLOG[place] [address] [facility] [place] [address] Referral ID Status Reason Start Date Expiration Date V isits Requested Visits Authorized [id number] Closed Specialty Service Requested 02/04/2021 08/07/2022 1 1 Encounter Details Date Type Department Care Team (Latest Contact Info) Description 03/03/2021 7:39 AM EDT - 03/03/2021 11:59 PM EDT Hospital [place] [address] Carrie Bruno MD [facility] DR HEMAT[place] [address] Thrombocytopenia Discharge Disposition: Home Social History Tobacco [...] 1:00 PM EST Office Visit Hematology/Oncology at [address] [phone] Carrie Bruno MD [facility] HEMATOLOGY [place] [address] Oliva Mccabe, COMPETITIVE ATHLETE [facility] HEMATOLOGY [place] [address] 09/11/2024 1:00 PM EST Office Visit Dermatology at [facility] [address] [place] [address] Lizeth Hallman MD [facility] [address] DONTA [place] [address] documented as of this encounter Procedures Procedure [...] who have questions please contact the health career law clerk that requested your imaging first. ? Narrative [...] patients who have questions please contactthe health career law clerk that requested your imaging first. Carrie Bruno [...] dose, Starting on Tue03/03/21 at 0959, Until Tu03/03/21 at 0959, Per Protocol, Warning Vesicant/Irritant Medication , Radiology Contrast, Routine Given 03/03/2021 9:59 AM EDT 50 mLs documented in this encounter Care Teams Armored Car Guard And Driver Relationship Specialty Start Date End Date Catracho Vernon MD PCP - General Family Medicine 04/21/18 documented as of this encounter
--- OUTSIDE RECORDS SUMMARY | 2024-05-21 16:08 | XMS_ITS | Encounter Summary ---
Author Organization [facility] [place] [address] Care Team Providers Care International Sourcing Manager Name Role Phone Catracho Vernon MD Primary Care Provider [phone] Reason for Visit * Reason Onset Date Comments Labs Only 10/13/2020 lab tracking Encounter Details Date Type Department Care Team (Late st Contact Info) Description 10/13/2020 Telephone Hematology/Oncology at [address] [phone] Jackie Salinas RN Labs Only [...] PM EST Office Visit Hematology/Oncology at [address] [phone] Carrie Bruno MD [facility] DR HEMATOLOGY [place] [address] Oliva Mccabe APRN [facility] [place]ATOLOGY [place] [address] 09/11/2024 1:00 PM EST Office Visit Dermatology at [facility] [address] [facility] [place] [address] Lizeth Hallman MD [facility] DR DONTA [place] [address] documented as of this encounter Procedures Procedure Name Priority Date/Time Associated Diagnosis Comments CBC (WITH DIFF) Routine 10/13/2020 documented in this encounter Results * CBC (with Diff) (10/13/2020) White Blood Cell 5.24 Hemoglobin 14.4 Hematocrit 44.2 Platelet 99 Neutrophil Absolute (ANC) - Automated 3.11 Blood 10/13/2020 Historical Provider HEMATOLOGY ORDERA BLES documented in this encounter Visit Diagnoses Not on filedocumented in this encounter Care Teams International Sourcing Manager Relationship Specialty Start Date End Date Catracho Vernon MD PCP - General Family Medicine 04/21/18 documented as of this encounter
--- OUTSIDE RECORDS SUMMARY | 2024-05-21 16:08 | XMS_ITS | Encounter Summary ---
Author Organization [facility] [place] [address] Care Team Providers Care Job Superintendent Name Role Phone Catracho Vernon MD Primary Care Provider [phone] Reason for Visit * Reason Onset Date Comments Labs Only 09/08/2020 lab tracking Encounter Details Date Type Department Care Team (Late st Contact Info) Description 09/08/2020 Telephone Hematology/Oncology at [address] [phone] Jackie Salinas RN Labs Only [...] 1:00 PM EST Office Visit Hematology/Oncology at [address] [phone] Carrie Bruno MD [facility] DR [place] [address] Oliva Mccabe APRN [facility] DR [place] [address] 09/11/2024 1:00 PM EST Office Visit Dermatology at [address] [place] [address] Lizeth Hallman MD [facility] [place] [address] documented as of this encounter Procedures Procedure Name Priority Date/Time Associated Diagnosis Comments CBC (WITH DIFF) Routine 09/08/2020 documented in this encounter Results * CBC (with Diff) (09/08/2020) White Blood Cell 6.62 Hemoglobin 13.9 Hematocrit 42.3 Platelet 159 Neutrophil Absolute (ANC) - Automated 4.12 Glucose Wh Bl 94 Alanine Aminotransferase 42 Creatinine 0.8 Blood 09/08/2020 Historical Provider HEMATOLOGY ORDERA BLES documented in this encounter Visit Diagnoses Not on filedocumented in this encounter Care Teams Job Superintendent Relationship Specialty Start Date End Date Catracho Vernon MD PCP - General Family Medicine 04/21/18 documented as of this encounter
--- OUTSIDE RECORDS SUMMARY | 2024-05-21 16:08 | XMS_ITS | Encounter Summary ---
Author Organization [facility] [place] [address] Care Team Providers Care Hydrographical Technical Officer Name Role Phone Catracho Vernon MD Primary Care Provider [phone] Reason for Visit * Reason Onset Date Comments Labs Only 12/16/2020 lab tracking Encounter Details Date Type Department Care Team (Late st Contact Info) Description 12/16/2020 Telephone Hematology Oncology at [address] [phone] Jackie Salinas RN Labs Only (lab tracking) [...] 1:00 PM EST Office Visit Hematology/Oncology at [address] [phone] Carrie Bruno MD [facility] [address] [place] [address] Oliva Mccabe APRN [facility] [address] [place] [address] 09/11/2024 1:00 PM EST Office Visit Dermatology at [place] [address] [place] [address] Lizeth Hallman MD [facility] [place] [address] documented as of this encounter Procedures Procedure Name Priority Date/Time Associated Diagnosis Comments CBC (WITH DIFF) Routine 12/16/2020 documented in this encounter Results * CBC (with Diff) (12/16/2020) White Blood Cell 4.78 Hemoglobin 13.8 Hematocrit 41.4 Platelet 59 Neutrophil Absolute (ANC) - Automated 3.1 Blood 12/16/2020 Historical Provider HEMATOLOGY ORDERA BLES documented in this encounter Visit Diagnoses Not on filedocumented in this encounter Care Teams Hydrographical Technical Officer Relationship Specialty Start Date End Date Catracho Vernon MD PCP - General Family Medicine 04/21/18 documented as of this encounter
--- OUTSIDE RECORDS SUMMARY | 2024-05-21 16:08 | XMS_ITS | Encounter Summary ---
Author Organization [facility] [place] [address] Care Team Providers Care Corporate Law Specialist Name Role Phone Catracho Vernon MD Primary Care Provider [phone] Reason for Visit * Reason Onset Date Comments Labs Only 01/12/2021 lab tracking Encounter Details Date Type Department Care Team (Late st Contact Info) Description 01/12/2021 Telephone Hematology Oncology at [address] [phone] Madison Corrales, RN Labs Only (lab tracking) [...] PM EST Office Visit Hematology/Oncology at [address] [phone] Carrie Bruno MD [facility] DR HEMATOLOGY [place] [address] Oliva Mccabe APRN [facility] HEMATOLOGY [place] [address] 09/11/2024 1:00 PM EST Office Visit Dermatology at [facility] [address] [place] [phone] Lizeth Hallman MD [facility] DR DONTA [place] [address] documented as of this encounter Procedures Procedure Name Priority Date/Time Associated Diagnosis Comments CBC (WITH DIFF) Routine 01/12/2021 COMPREHENSIVE METABOLIC PANEL Routine 01/12/2021 documented in this encounter Results * Comprehensive metabolic panel (non-fasting) (01/12/2021) Blood Urea Nitrogen 24 Creatinine 1.0 Blood 01/12/2021 Carrie Bruno MD CHEMISTRY ORDERA BLES * CBC (with Diff) (01/12/2021) White Blood Cell 3.44 Hemoglobin 14.1 Hematocrit 42.3 Platelet 91 Neutrophil Absolute (ANC) - Automated 1.92 Blood 01/12/2021 Carrie Bruno MD HEMATOLOGY ORDER JAMIE documented in this encounter Visit Diagnoses Not on filedocumented in this encounter Care Teams Corporate Law Specialist Relationship Specialty Start Date End Date Catracho Vernon MD PCP - General Family Medicine 04/21/18 documented as of this encounter
--- OUTSIDE RECORDS SUMMARY | 2024-05-21 16:08 | XMS_ITS | Encounter Summary ---
Author Organization [facility] [place] [address] Care Team Providers Care Software Developer Name Role Phone Catracho Vernon MD Primary Care Provider [phone] Reason for Visit * Reason Onset Date Comments Follow-up 11/28/2020 Encounter Details Date Type Department Care Team (Late st Contact Info) Description 11/28/2020 Telephone Hematology/Oncology at [address] [phone] Jackie Salinas RN Follow-up Social History Tobacco [...] 1:00 PM EST Office Visit Hematology/Oncology at [address] [phone] Carrie Bruno MD [facility] DR HEMATOLOGY [place] [address] Oliva Mccabe APRN [facility] HEMATOLOGY [place] [address] 09/11/2024 1:00 PM EST Office Visit Dermatology at [facility] [address] [place] [phone] Lizeth Hallman MD [facility] DR DONTA [place] [address] documented as of this encounter Visit Diagnoses Not on filedocumented in this encounter Care Teams Software Developer Relationship Specialty Start Date End Date Catracho Vernon MD PCP - General Family Medicine 04/21/18 documented as of this encounter
--- OUTSIDE RECORDS SUMMARY | 2024-05-21 16:08 | XMS_ITS | Encounter Summary ---
Author Organization [facility] [place] [address] Care Team Providers Care Aoc Plans Intelligence Officer Name Role Phone Catracho Vernon MD Primary Care Provider [phone] Reason for Visit * Reason Onset Date Comments Labs Only 08/25/2020 lab tracking Encounter Details Date Type Department Care Team (Late st Contact Info) Description 08/25/2020 Telephone Hematology/Oncology at [address] [phone] Jackie Salinas RN Labs Only [...] pt about next step wed. Results for WEROTORREY GARNER ( ) as of 08/25/2020 10:45 Ref. [...] PM EST Office Visit Hematology/Oncology at [address] [phone] Carrie Bruno MD [facility] DR HEMATOLOGY [place] [address] Oliva Mccabe APRN [facility] DR HEMATOLOGY [place] [address] 09/11/2024 1:00 PM EST Office Visit Dermatology at [address] [place] [address] Lizeth Hallman MD [facility] DR DONTA [place] [address] documented as of this encounter Procedures Procedure Name Priority Date/Time Associated Diagnosis Comments CBC (WITH DIFF) Routine 08/25/2020 documented in this encounter Results * CBC (with Diff) (08/25/2020) White Blood Cell 5.19 Hemoglobin 13.6 Hematocrit 41.2 Platelet 86 Neutrophil Absolute (ANC) - Automated 3.09 Blood 08/25/2020 Historical Provider HEMATOLOGY ORDERA BLES documented in this encounter Visit Diagnoses Not on filedocumented in this encounter Care Teams Aoc Plans Intelligence Officer Relationship Specialty Start Date End Date Catracho Vernon MD PCP - General Family Medicine 04/21/18 documented as of this encounter
--- OUTSIDE RECORDS SUMMARY | 2024-05-21 16:08 | XMS_ITS | Encounter Summary ---
Author Organization [facility] [place] [address] Care Team Providers Care Senior Firewall Engineer Name Role Phone Catracho Vernon MD Primary Care Provider [phone] Reason for Visit * Reason Onset Date Comments Labs Only 11/24/2020 lab tracking Encounter Details Date Type Department Care Team (Late st Contact Info) Description 11/24/2020 Telephone Hematology/Oncology at [address] [phone] Jackie Salinas RN Labs Only [...] PM EST Office Visit Hematology/Oncology at [address] [phone] Carrie Bruno MD [facility] DR [place] [address] Oliva Mccabe APRN [facility] [address] [place] [address] 09/11/2024 1:00 PM EST Office Visit Dermatology at [facility] [address] [place] [phone] Lizeth Hallman MD [facility] [place] [address] documented as of this encounter Procedures Procedure Name Priority Date/Time Associated Diagnosis Comments CBC (WITH DIFF) Routine 11/24/2020 documented in this encounter Results * CBC (with Diff) (11/24/2020) White Blood Cell 5.02 Hemoglobin 14.1 Hematocrit 43.2 Platelet 90 Neutrophil Absolute (ANC) - Automated 2.91 Blood 11/24/2020 Historical Provider HEMATOLOGY ORDERA BLES documented in this encounter Visit Diagnoses Not on filedocumented in this encounter Care Teams Senior Firewall Engineer Relationship Specialty Start Date End Date Catracho Vernon MD PCP - General Family Medicine 04/21/18 documented as of this encounter
--- OUTSIDE RECORDS SUMMARY | 2024-05-21 16:08 | XMS_ITS | Encounter Summary ---
Author Organization [facility] [place] [address] Care Team Providers Care Newspaper Managing Editor Name Role Phone Catracho Vernon MD Primary Care Provider [phone] Reason for Visit * Reason Onset Date Comments Labs Only 12/23/2020 Lab Tracking Encounter Details Date Type Department Care Team (Late st Contact Info) Description 12/23/2020 Telephone Hematology/Oncology at [address] [phone] Bird Kohli, RN Labs Only [...] agreement with plan. Labs again 01/06 at [facility]. Results for TORREY CONTEH ( ) [...] PM EST Office Visit Hematology/Oncology at [address] [phone] Carrie Brnuo MD [facility] [place] [address] Oliva Mccabe APRN [facility] [place] [address] 09/11/2024 1:00 PM EST Office Visit Dermatology at [place] [address] [place] [address] Lizeth Hallman MD [facility] [place] [address] documented as of this encounter Procedures Procedure Name Priority Date/Time Associated Diagnosis Comments CBC (WITH DIFF) Routine 12/23/2020 documented in this encounter Results * CBC (with Diff) (12/23/2020) White Blood Cell 4.12 Hemoglobin 14.8 Hematocrit 45.1 Mean Cell Volume 89.8 Platelet 81 Neutrophil Absolute (ANC) - Automated 2.29 Blood Carrie Bruno MD HEMATOLOGY ORDER JAMIE documented in this encounter Visit Diagnoses Not on filedocumented in this encounter Care Teams Newspaper Managing Editor Relationship Specialty Start Date End Date Catracho Vernon MD PCP - General Family Medicine 04/21/18 documented as of this encounter
--- OUTSIDE RECORDS SUMMARY | 2024-05-21 16:08 | XMS_ITS | Encounter Summary ---
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 Darryl HAMILTON Has children who work in [place] - her daughter and son-in-law work for [employer] in [place]. 2 boys. 3 children total and 4 grandchildren total. 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 FAMILY HISTORY: Mother: CAD, renal Father: dementia [...] This note was written or modified using [employer] voice recognition software. The final note was screened for mistakes. Please excuse any remaining errors. CARRIE HEREDIA MD documented in this encounter Plan of Treatment Upcoming Encounters Date Type Department Care Team (Late st Contact Info) Description 08/29/2024 1:00 PM EST Office Visit Hematology/Oncology at [address] [phone] Carrie Heredia MD [facility] DR [place] [address] Oliva Mccabe APRN [facility] [place] [address] 09/11/2024 1:00 PM EST Office Visit Dermatology at [facility] [address] [place] [address] Lizeth Hallman MD [facility] [place] [address] documented as of this encounter Visit Diagnoses Diagnosis Acute ITP Immune thrombocytopenic purpura documented in this encounter Care Teams Crawler Tractor Operator Relationship Specialty Start Date End Date Catracho Vernon MD PCP - General Family Medicine 04/21/18 documented as of this encounter
--- OUTSIDE RECORDS SUMMARY | 2024-05-21 16:08 | XMS_ITS | Encounter Summary ---
Author Organization [facility] Address [facility] [place] [address] Care Team Providers Care Shipfitter Name Role Phone Catracho Vernon MD Primary Care Provider [phone] Reason for Visit * Reason Comments IV Medication IVIG * Treatment/Therapy Plan Authorization (Routine) - Pending Review Specialty Diagnoses / Procedures Referred By Edson evans Referred To Contact Diagnoses Thrombocytopenia Carrie Bruno MD [facility] DR HEMATOLOGY [place] [address] Referral ID Status Reason Start Date Expiration Date V isits Requested Visits Authorized [id number] Pending Review 09/17/2020 09/17/2021 99 99 Encounter Details Date Type Department Care Team (Late st Contact Info) Description 12/16/2020 8:00 AM EDT Infusion Hematology Oncology at [address] [phone] Thrombocytopenia Social History Tobacco Use Types Packs/Day [...] PM EST Office Visit Hematology/Oncology at [address] [phone] Carrie Bruno MD [facility] DR HEMATOLOGY [place] [address] Oliva Mccabe APRN [facility] DR HEMATOLOGY [place] [address] 09/11/2024 1:00 PM EST Office Visit Dermatology at [facility] [address] [place] [phone] Lizeth Hallman MD [facility] [place] [address] documented as of this encounter Procedures Procedure [...] require approval by P&T Chair or On-Call Heel Attacher. *Idiopathic thrombocytopenic purpura *, What is the [...] require approval by P&T Chair or On-Call Heel Attacher. *Idiopathic thrombocytopenic purpura *, What is the maximum rate of administration? 0.04 mL/kg/min (for idiopathic thrombocytopenia or any patient with renal insufficiency or any patient greater than or equal to 65 years old) New Bag 12/16/2020 9:53 AM EDT 40 g documented in this encounter Care Teams Shipfitter Relationship Specialty Start Date End Date Catracho Vernon MD PCP - General Family Medicine 04/21/18 documented as of this encounter
--- OUTSIDE RECORDS SUMMARY | 2024-05-21 16:08 | XMS_ITS | Encounter Summary ---
Author Organization [facility] [place] [address] Care Team Providers Care Bulk Cooler Installer Name Role Phone Catracho Vernon MD Primary Care Provider [phone] Reason for Visit * Reason Onset Date Comments Labs Only 11/03/2020 Lab Tracking Encounter Details Date Type Department Care Team (Late st Contact Info) Description 11/03/2020 Telephone Hematology Oncology at [address] [phone] Ebony Kendall, RN Labs Only (Lab Tracking) Social History Tobacco Use Types Packs/Day Years Used Date Smoking Tobacco: Never Smokeless Tobacco: Never Sex and Gender Information Value Date Recorded Sex Assigned at Not on file Gender Identity Female 08/21/2020 5:05 PM EST Sexual Orientation Not on file documented as of this encounter Miscellaneous Notes * Telephone Encounter - Ebony Kendall RN - 11/03/2020 12:54 PM EDT LAB [...] PM EST Office Visit Hematology/Oncology at [address] [phone] Carrie Bruno MD [facility] DR [place] [address] Oliva Mccabe, ABDULLAHI [facility] [place] [address] 09/11/2024 1:00 PM EST Office Visit Dermatology at [facility] [address] [place] [address] Lizeth Hallman MD [facility] [place] [address] documented as of this encounter Procedures Procedure Name Priority Date/Time Associated Diagnosis Comments CBC (WITH DIFF) Routine 11/03/2020 documented in this encounter Results * CBC (with Diff) (11/03/2020) White Blood Cell 4.3 Red Blood Cell 4.43 Hemoglobin 13.6 Hematocrit 41.8 Platelet 90 Neutrophil Absolute (ANC) - Automated 2.56 Blood 11/03/2020 Carrie Bruno MD HEMATOLOGY ORDER JAMIE documented in this encounter Visit Diagnoses Not on filedocumented in this encounter Care Teams Bulk Cooler Installer Relationship Specialty Start Date End Date Catracho Vernon MD PCP - General Family Medicine 04/21/18 documented as of this encounter
--- OUTSIDE RECORDS SUMMARY | 2024-05-21 16:08 | XMS_ITS | Encounter Summary ---
Author Organization [facility] [place] [address] Care Team Providers Care Administrative Accountant Name Role Phone Catracho Vernon MD Primary Care Provider Reason for Visit * Reason Onset Date Comments Labs Only 09/22/2020 Lab Tracking Encounter Details Date Type Department Care Team (Late st Contact Info) Description 09/22/2020 Telephone Hematology Oncology at [address] [phone] Ebony Kendall, RN Labs Only (Lab Tracking) [...] 1:00 PM EST Office Visit Hematology/Oncology at [address] [phone] Carrie Bruno MD [facility] DR HEMATOLOGY [place] [address] Oliva Mccabe APRN [facility] HEMATOLOGY [place] [address] 09/11/2024 1:00 PM EST Office Visit Dermatology at [facility] [address] [place] [address] Lizeth Hallman MD [facility] DR DONTA [place] [address] documented as of this encounter Procedures Procedure Name Priority Date/Time Associated Diagnosis Comments CBC (WITH DIFF) Routine 09/22/2020 documented in this encounter Results * CBC (with Diff) (09/22/2020) White Blood Cell 3.89 Hemoglobin 13.5 Hematocrit 41.5 Platelet 155 Neutrophil Absolute (ANC) - Automated 2.07 Blood 09/22/2020 Carrie Bruno MD HEMATOLOGY ORDER JAMIE documented in this encounter Visit Diagnoses Not on filedocumented in this encounter Care Teams Administrative Accountant Relationship Specialty Start Date End Date Catracho Vernon MD PCP - General Family Medicine 04/21/18 documented as of this encounter
--- OUTSIDE RECORDS SUMMARY | 2024-05-21 16:08 | XMS_ITS | Encounter Summary ---
Author Organization [facility] Address [facility] [place] [address] Care Team Providers Care Hybrid Technologist Name Role Phone Catracho Vernon MD Primary Care Provider [phone] Reason for Visit * Reason Comments Skin Cancer Examination Encounter Details Date Type Department Care Team ([facility] st Contact Info) Description 11/13/2020 10:20 AM EDT Office Visit Dermatology at [address] [phone] Anita Churchill MD [facility] [address] [place] [address] SK (seborrheic keratosis); AK (actinic keratosis); Rosacea; Lentigines Social History Tobacco Use Types Packs/Day Years Used Date Smoking Tobacco: Never Smokeless Tobacco: Never Sex and Gender Information Value Date Recorded Sex Assigned at Not on file Gender Identity Female 08/21/2020 5:05 PM EST Sexual Orientation Not on file documented as of this encounter Patient Instructions * Patient Instructions* Robina Valdivia, SLOT OPERATIONS DIRECTOR - 11/13/2020 10:20 AM EDT Images from [...] and concerns please call your nurse at: [phone]. documented in this encounter Progress Notes * [...] had psoriasis? 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 Medications: Current Outpatient Medications Medication Sig Dispense [...] spicy foods, alcoholic beverages, sun exposure) - Holderness decision to Start Rx: azelaic acid 15% [...] by: Anita Churchill MD Resident in Dermatology [facility] Patient seen and evaluated with staff director blood bank: Amelia Delacruz MD Department of Dermatology [facility] * Amelia Delacruz MD - 11/13/2020 10:20 [...] PM EST Office Visit Hematology/Oncology at [address] [phone] Carrie Bruno MD [facility] DR [place] [address] Oliva Mccabe, PRODUCT SAFETY OFFICER [facility] [place] [address] 09/11/2024 1:00 PM EST Office Visit Dermatology at [address] [place] [address] Lizeth Hallman MD [facility] [address] [place] [address] documented as of this encounter Visit Diagnoses Diagnosis SK (seborrheic keratosis) Other seborrheic keratosis AK (actinic keratosis) Actinic keratosis Rosacea Lentigines Other dyschromia documented in this encounter Care Teams Hybrid Technologist Relationship Specialty Start Date End Date Catracho Vernon MD PCP - General Family Medicine 04/21/18 documented as of this encounter
--- OUTSIDE RECORDS SUMMARY | 2024-05-21 16:08 | XMS_ITS | Encounter Summary ---
Author Organization [facility] Address [facility] [place] [address] Care Team Providers Care Family Court Justice Name Role Phone Catracho Vernon MD Primary Care Provider [phone] Reason for Visit * Reason Comments IV Medication IVIG * Treatment/Therapy Plan Authorization (Routine) - Pending Review Specialty Diagnoses / Procedures Referred By Edson evans Referred To Contact Diagnoses Thrombocytopenia Carrie Bruno MD [facility] [address] [place] [address] Referral ID Status Reason Start Date Expiration Date V isits Requested Visits Authorized [id number] Pending Review 09/17/2020 09/17/2021 99 99 Encounter Details Date Type Department Care Team (Late st Contact Info) Description 01/08/2021 8:00 AM EDT Infusion Hematology Oncology at [address] [phone] Thrombocytopenia Social History Tobacco Use Types Packs/Day [...] Progress Notes * Madison Corrales, RN - 01/08/2021 8:00 AM EDT INFUSION [...] 1:00 PM EST Office Visit Hematology/Oncology at [address] [phone] Carrie Bruno MD [facility] [address] [place] [address] Oliva Mccabe APRN [facility] [place] [address] 09/11/2024 1:00 PM EST Office Visit Dermatology at [facility] [address] [place] [address] Lizeth Hallman MD [facility] [place] [address] documented as of this encounter Visit Diagnoses Diagnosis Thrombocytopenia Thrombocytopenia, unspecified documented in this encounter Administered Medications Inactive Administered Medications - up to 3 most recent administrations Medication Order [facility] Action Action Date Dose Rate [...] require approval by P&T Chair or On-Call Technical Specialist [employer]. *Idiopathic thrombocytopenic purpura *, What is the [...] require approval by P&T Chair or On-Call Technical Specialist [employer]. *Idiopathic thrombocytopenic purpura *, What is the maximum rate of administration? 0.04 mL/kg/min (for idiopathic thrombocytopenia or any patient with renal insufficiency or any patient greater than or equal to 65 years old) New Bag 01/08/2021 9:54 AM EDT 40 g documented in this encounter Care Teams Family Court Justice Relationship Specialty Start Date End Date Catracho Vernon MD PCP - General Family Medicine 04/21/18 documented as of this encounter
--- OUTSIDE RECORDS SUMMARY | 2024-05-21 16:08 | XMS_ITS | Encounter Summary ---
Author Organization [facility] Address [facility] [place] [address] Care Team Providers Care House Cleaner Supervisor Name Role Phone Catracho Vernon MD Primary Care Provider [phone] Encounter Details Date Type Department Care Team (Late Contact Info) Description 01/14/2021 Orders Only Hematology/Oncology at [address] [phone] Stacey Bhatt ARMED SECURITY GUARD [facility] [place] [address] Social History Tobacco Use Types Packs/Day Years [...] 1:00 PM EST Office Visit Hematology/Oncology at [address] [phone] Carrie Bruno MD [facility] [place] [address] Oliva Mccabe, ABDULLAHI [facility] [place] [address] 09/11/2024 1:00 PM EST Office Visit Dermatology at [address] [place] [phone] Lizeth Hallman MD [facility] [place] [address] documented as of this encounter Visit Diagnoses Not on filedocumented in this encounter Care Teams House Cleaner Supervisor Relationship Specialty Start Date End Date Catracho Vernon MD PCP - General Family Medicine 04/21/18 documented as of this encounter
--- OUTSIDE RECORDS SUMMARY | 2024-05-21 16:08 | XMS_ITS | Encounter Summary ---
Author Organization [facility] Address [facility] [place] [address] Care Team Providers Care Insurance Verification Specialist Name Role Phone Catracho Vernon MD Primary Care Provider [phone] Encounter Details Date Type Department Care Team (Late st Contact Info) Description 09/17/2020 9:30 AM EST Office Visit Hematology/Oncology at [address] [phone] Carrie Hreedia MD [facility] DR HEMATOLOGY [place] [address] Stacey Bhatt APRN [facility] DR HEMATOLOGY [place] [address] Acute ITP Social History Tobacco Use Types [...] HISTORY- reviewed 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 Darryl HAMILTON Has children who work in [employer] - her daughter and son-in-law work for [employer] in [facility]. 2 boys. 3 children total and 4 grandchildren total. Retired [employer]. FAMILY HISTORY: Mother: CAD, renal Father: dementia [...] The cyclosporine combinations are more challenging in [facility] as we cannot get levels easily. [...] This note was written or modified using App47 voice recognition software. The final note was screened for mistakes. Please excuse any remaining errors. CARRIE HEREDIA MD documented in this encounter Plan of Treatment Upcoming Encounters Date Type Department Care Team (Late st Contact Info) Description 08/29/2024 1:00 PM EST Office Visit Hematology/Oncology at [address] [phone] Carrie Heredia MD [facility] HEMATOLOGY [place] [address] Oliva Mccabe APRN [facility] HEMATOLOGY [place] [address] 09/11/2024 1:00 PM EST Office Visit Dermatology at [facility] [address] [place] [address] Lizeth Hallman MD [facility] DR DONTA [place] [address] documented as of this encounter Visit Diagnoses Diagnosis Acute ITP Immune thrombocytopenic purpura documented in this encounter Care Teams Insurance Verification Specialist Relationship Specialty Start Date End Date Catracho Vernon MD PCP - General Family Medicine 04/21/18 documented as of this encounter
--- OUTSIDE RECORDS SUMMARY | 2024-05-21 16:08 | XMS_ITS | Encounter Summary ---
Author Organization [facility] [place] [address] Care Team Providers Care Sail Cutter Name Role Phone Catracho Vernon MD Primary Care Provider [phone] Reason for Visit * Reason Comments IV Medication Rituxan * Treatment/Therapy Plan Authorization (Routine) - Closed Specialty Diagnoses / Procedures Referred By Edson evans Referred To Contact Diagnoses Thrombocytopenia Stacey Bhatt, ABDULLAHI [facility] DR HEMATOLOGY [place] [address] Referral ID Status Reason Start Date Expiration Date Visits Re quested Visits Authorized [id number] Closed 01/14/2021 01/14/2022 99 99 Encounter Details Date Type Department Care Team (Late st Contact Info) Description 02/11/2021 8:00 AM EDT Infusion Hematology Oncology at [address] [phone] Thrombocytopenia Social History Tobacco Use [...] PM EST Office Visit Hematology/Oncology at [address] [phone] Carrie Bruno MD [facility] HEMATOLOGY [place] [address] Oliva Mccabe APRN [facility] HEMATOLOGY [place] [address] 09/11/2024 1:00 PM EST Office Visit Dermatology at [facility] [address] [place] [address] Lizeth Hallman MD [facility] [place] [address] documented as of this encounter Visit Diagnoses [...] mg documented in this encounter Care Teams Sail Cutter Relationship Specialty Start Date End Date Catracho Vernon MD PCP - General Family Medicine 04/21/18 documented as of this encounter
--- OUTSIDE RECORDS SUMMARY | 2024-05-21 16:08 | XMS_ITS | Encounter Summary ---
Author Organization [facility] [place] [address] Care Team Providers Care Security Incident Handler Name Role Phone Catracho Vernon MD Primary Care Provider [phone] Encounter Details Date Type Department Care Team (Late Contact Info) Description 12/12/2020 Orders Only Hematology [place] [address] Carrie Bruno MD [facility] [place] [address] Social History Tobacco Use Types Packs/Day Years [...] 1:00 PM EST Office Visit Hematology/Oncology at [address] [phone] Carrie Bruno MD [facility] [place] [address] Oliva Mccabe, FIRST CRUSHER [facility] [place] [address] 09/11/2024 1:00 PM EST Office Visit Dermatology at [address] [place] [phone] Lizeth Hallman MD [facility] [place] [address] documented as of this encounter Visit Diagnoses Not on filedocumented in this encounter Care Teams Security Incident Handler Relationship Specialty Start Date End Date Catracho Vernon MD PCP - General Family Medicine 04/21/18 documented as of this encounter
--- OUTSIDE RECORDS SUMMARY | 2024-05-21 16:08 | XMS_ITS | Encounter Summary ---
Author Organization [facility] [place] [address] Care Team Providers Care Breast Trimmer Name Role Phone Catracho Vernon MD Primary Care Provider Reason for Visit * Reason Onset Date Comments Labs Only 09/17/2020 lab tracking Encounter Details Date Type Department Care Team (Late st Contact Info) Description 09/17/2020 Telephone Hematology/Oncology at [address] [phone] Jackie Salinas RN Labs Only (lab tracking) [...] PM EST Office Visit Hematology/Oncology at [address] [phone] Carrie Bruno MD [facility] DR HEMATOLOGY [place] [address] Oliva Mccabe, ABDULLAHI [facility] DR HEMATOLOGY [place] [address] 09/11/2024 1:00 PM EST Office Visit Dermatology at [address] [phone] Lizeth Hallman MD [facility] [place] [address] documented as of this encounter Procedures Procedure Name Priority Date/Time Associated Diagnosis Comments CBC (WITH DIFF) Routine 09/17/2020 documented in this encounter Results * CBC (with Diff) (09/17/2020) White Blood Cell 5.08 Hemoglobin 13.1 Hematocrit 39.9 Platelet 88 Neutrophil Absolute (ANC) - Automated 3.03 Blood 09/17/2020 Historical Provider HEMATOLOGY ORDERA BLES documented in this encounter Visit Diagnoses Not on filedocumented in this encounter Care Teams Breast Trimmer Relationship Specialty Start Date End Date Catracho Vernon MD PCP - General Family Medicine 04/21/18 documented as of this encounter
--- OUTSIDE RECORDS SUMMARY | 2024-05-21 16:08 | XMS_ITS | Encounter Summary ---
Author Organization [facility] [place] [address] Care Team Providers Care Park Ranger Name Role Phone Catracho Vernon MD Primary Care Provider [phone] Reason for Visit * Reason Onset Date Comments Labs Only 01/26/2021 lab tracking Encounter Details Date Type Department Care Team (Late st Contact Info) Description 01/26/2021 Telephone Hematology/Oncology at [address] [phone] Jackie Salinas RN Labs Only [...] DIAGNOSIS: ITP LABS ORDERED: cbc/diff Weekly at [facility], also needs CMP if getting IVIG MEDICATIONS: 07/16/20- dexamethasone 40 IV day one then daily for 3 days 08/05/20-08/08/20 dexamethasone 40 mg po daily IVIG- 12/15,12/16,01/08, 01/09 Rituxan to start 01/16 Assessment/Plan: Labs sent to Dr. Bruno and Manfred Bhatt APRN Got IVIG 01/08 and 01/09. She will [...] PM EST Office Visit Hematology/Oncology at [address] [phone] Carrie Bruno MD [facility] [place] [address] Oliva Mccabe APRN [facility] [place] [address] 09/11/2024 1:00 PM EST Office Visit Dermatology at [address] [place] [address] Lizeth Hallman MD [facility] [place] [address] documented as of this encounter Procedures Procedure Name Priority Date/Time Associated Diagnosis Comments CBC (WITH DIFF) Routine 01/26/2021 documented in this encounter Results * CBC (with Diff) (01/26/2021) White Blood Cell 3.56 Hemoglobin 13.4 Hematocrit 41.3 Platelet 45 Neutrophil Absolute (ANC) - Automated 1.53 Creatinine 0.9 Blood 01/26/2021 Historical Provider HEMATOLOGY ORDERA BLES documented in this encounter Visit Diagnoses Not on filedocumented in this encounter Care Teams Park Ranger Relationship Specialty Start Date End Date Catracho Vernon MD PCP - General Family Medicine 04/21/18 documented as of this encounter
--- OUTSIDE RECORDS SUMMARY | 2024-05-21 16:08 | XMS_ITS | Encounter Summary ---
Author Organization [facility] [place] [address] Care Team Providers Care Housing Quality Standard Inspector Name Role Phone Catracho Vernon MD Primary Care Provider [phone] Reason for Visit * Reason Onset Date Comments Labs Only 09/15/2020 lab tracking Encounter Details Date Type Department Care Team (Late st Contact Info) Description 09/15/2020 Telephone Hematology/Oncology at [address] [phone] Jackie Salinas RN Labs Only (lab tracking) [...] PM EST Office Visit Hematology/Oncology at [address] [phone] Carrie Bruno MD [facility] DR HEMATOLOGY [place] [address] Oliva Mccabe APRN [facility] [place] [address] 09/11/2024 1:00 PM EST Office Visit Dermatology at [address] [place] [address] Lizeth Hallman MD [facility] DR [place] [address] documented as of this encounter Procedures Procedure Name Priority Date/Time Associated Diagnosis Comments CBC (WITH DIFF) Routine 09/15/2020 documented in this encounter Results * CBC (with Diff) (09/15/2020) White Blood Cell 5.77 Hemoglobin 13.5 Hematocrit 41.2 Platelet 91 Neutrophil Absolute (ANC) - Automated 3.53 Blood 09/15/2020 Historical Provider HEMATOLOGY ORDERA BLES documented in this encounter Visit Diagnoses Not on filedocumented in this encounter Care Teams Housing Quality Standard Inspector Relationship Specialty Start Date End Date Catracho Vernon MD PCP - General Family Medicine 04/21/18 documented as of this encounter
--- OUTSIDE RECORDS SUMMARY | 2024-05-21 16:08 | XMS_ITS | Encounter Summary ---
Author Organization [facility] [place] [address] Care Team Providers Care Automotive Sales Associate Name Role Phone Catracho Vernon MD Primary Care Provider [phone] Reason for Visit * Reason Onset Date Comments Labs Only 12/17/2020 lab tracking Encounter Details Date Type Department Care Team (Late st Contact Info) Description 12/17/2020 Telephone Hematology/Oncology at [address] [phone] Bird Kohli, RN Labs Only [...] 1:00 PM EST Office Visit Hematology/Oncology at [address] [phone] Carrie Bruno MD [facility] [place] [address] Oliva Mccabe APRN [facility] [place] [address] 09/11/2024 1:00 PM EST Office Visit Dermatology at [facility] [address] [place] [address] Lizeth Hallman MD [facility] [place] [address] documented as of this encounter Procedures Procedure Name Priority Date/Time Associated Diagnosis Comments CBC (WITH DIFF) Routine 12/17/2020 documented in this encounter Results * CBC (with Diff) (12/17/2020) White Blood Cell 4.65 Hemoglobin 13.6 Hematocrit 40.6 Mean Cell Volume 89.2 Platelet 85 Neutrophil Absolute (ANC) - Automated 2.87 Blood Carrie Bruno MD HEMATOLOGY ORDER JAMIE documented in this encounter Visit Diagnoses Not on filedocumented in this encounter Care Teams Automotive Sales Associate Relationship Specialty Start Date End Date Catracho Vernon MD PCP - General Family Medicine 04/21/18 documented as of this encounter
--- OUTSIDE RECORDS SUMMARY | 2024-05-21 16:08 | XMS_ITS | Encounter Summary ---
Author Organization [facility] Address [facility] [place] [address] Care Team Providers Care Psychologist Name Role Phone Catracho Vernon MD Primary Care Provider [phone] Reason for Visit * Reason Comments IV Medication First IVIG infusion * Treatment/Therapy Plan Authorization (Routine) - Pending Review Specialty Diagnoses / Procedures Referred By Edson t Referred To Contact Diagnoses Thrombocytopenia Carrie Bruno MD [facility] DR [place] [address] Referral ID Status Reason Start Date Expiration Date V isits Requested Visits Authorized [id number] Pending Review 09/17/2020 09/17/2021 99 99 Encounter Details Date Type Department Care Team (Late st Contact Info) Description 12/15/2020 9:00 AM EDT Infusion Hematology Oncology at [address] [phone] Thrombocytopenia Social History Tobacco Use Types Packs/Day [...] PM EST Office Visit Hematology/Oncology at [address] [phone] Carrie Bruno MD [facility] HEMATOLOGY [place] [address] Oliva Mccabe, PLANE CAPTAIN [facility] [place] [address] 09/11/2024 1:00 PM EST Office Visit Dermatology at [facility] [address] [place] [phone] Lizeth Hallman MD [facility] [place] [address] documented as of this encounter Visit Diagnoses [...] require approval by P&T Chair or On-Call Administrative Representative. *Idiopathic thrombocytopenic purpura *, What is the [...] require approval by P&T Chair or On-Call Administrative Representative. *Idiopathic thrombocytopenic purpura *, What is the maximum rate of administration? 0.04 mL/kg/min (for idiopathic thrombocytopenia or any patient with renal insufficiency or any patient greater than or equal to 65 years old) New Bag 12/15/2020 11:37 AM EDT 40 g documented in this encounter Care Teams Psychologist Relationship Specialty Start Date End Date Catracho Vernon MD PCP - General Family Medicine 04/21/18 documented as of this encounter
--- OUTSIDE RECORDS SUMMARY | 2024-05-21 16:08 | XMS_ITS | Encounter Summary ---
Author Organization [facility] [place] [address] Care Team Providers Care Ocean Transportation Intermediary Name Role Phone Catracho Vernon MD Primary Care Provider [phone] Reason for Visit * Reason Onset Date Comments Labs Only 02/10/2021 Lab Tracking Encounter Details Date Type Department Care Team (Late st Contact Info) Description 02/10/2021 Telephone Hematology/Oncology at [address] [phone] Bird Kohli, RN Labs Only [...] DIAGNOSIS: ITP LABS ORDERED: cbc/diff Weekly at [facility], also needs CMP if getting IVIG [...] PM EST Office Visit Hematology/Oncology at [address] [phone] Carrie Bruno MD [facility] DR HEMATOLOGY [place] [address] Oliva Mccabe, ABDULLAHI [facility] DR HEMATOLOGY [place] [address] 09/11/2024 1:00 PM EST Office Visit Dermatology at [facility] [address] [place] [phone] Lizeth Hallman MD [facility] [address] [place] [address] documented as of this encounter Procedures Procedure Name Priority Date/Time Associated Diagnosis Comments CBC (WITH DIFF) Routine 02/10/2021 documented in this encounter Results * CBC (with Diff) (02/10/2021) White Blood Cell 4.90 Hemoglobin 13.2 Hematocrit 40.5 Mean Cell Volume 89.8 Platelet 48 Neutrophil Absolute (ANC) - Automated 3.04 Blood Historical Provider HEMATOLOGY ORDERA BLES documented in this encounter Visit Diagnoses Not on filedocumented in this encounter Care Teams Ocean Transportation Intermediary Relationship Specialty Start Date End Date Catracho Vernon MD PCP - General Family Medicine 04/21/18 documented as of this encounter
--- OUTSIDE RECORDS SUMMARY | 2024-05-21 16:08 | XMS_ITS | Encounter Summary ---
Author Organization [facility] [place] [address] Care Team Providers Care Small Engine Specialist Name Role Phone Catracho Vernon MD Primary Care Provider [phone] Reason for Visit * Reason Onset Date Comments Labs Only 11/17/2020 lab tracking Encounter Details Date Type Department Care Team (Late st Contact Info) Description 11/17/2020 Telephone Hematology/Oncology at [address] [phone] Jackie Salinas RN Labs Only [...] PM EST Office Visit Hematology/Oncology at [address] [phone] Carrie Bruno MD [facility] [place] [address] Oliva Mccabe, FREELANCE COPYWRITER [facility] [place] [address] 09/11/2024 1:00 PM EST Office Visit Dermatology at [facility] [address] [place] [address] Lizeth Hallman MD [facility] [place] [address] documented as of this encounter Procedures Procedure Name Priority Date/Time Associated Diagnosis Comments CBC (WITH DIFF) Routine 11/17/2020 documented in this encounter Results * CBC (with Diff) (11/17/2020) White Blood Cell 4.98 Hemoglobin 14.1 Hematocrit 43.4 Platelet 82 Neutrophil Absolute (ANC) - Automated 3 Blood 11/17/2020 Historical Provider HEMATOLOGY ORDERA BLES documented in this encounter Visit Diagnoses Not on filedocumented in this encounter Care Teams Small Engine Specialist Relationship Specialty Start Date End Date Catracho Vernon MD PCP - General Family Medicine 04/21/18 documented as of this encounter
--- OUTSIDE RECORDS SUMMARY | 2024-05-21 16:08 | XMS_ITS | Encounter Summary ---
Author Organization [facility] [place] [address] Care Team Providers Care Manager Sound Name Role Phone Catracho Vernon MD Primary Care Provider [phone] Reason for Visit * Reason Onset Date Comments Labs Only 02/18/2021 Lab Tracking Encounter Details Date Type Department Care Team (Late st Contact Info) Description 02/18/2021 Telephone Hematology/Oncology at [address] [phone] Bird Kohli, RN Labs [...] DIAGNOSIS: ITP LABS ORDERED: cbc/diff Weekly at [facility], also needs CMP if getting IVIG MEDICATIONS: 07/16/20- dexamethasone 40 IV day one then daily for 3 days 08/05/20-08/08/20 dexamethasone 40 mg po daily IVIG- 12/15,12/16,01/08, 01/09 Rituxan to start 01/16- 4 doses given Assessment/Plan: Labs sent to provider for review. Pt has had 4 doses Rituxan. Pt is going to [facility] next week. Per Dr Bruno take 4 [...] PM EST Office Visit Hematology/Oncology at [address] [phone] Carrie Bruno MD [facility] [address] [place] [address] Oliva Mccabe APRN [facility] [place] [address] 09/11/2024 1:00 PM EST Office Visit Dermatology at [facility] [address] [place] [phone] Lizeth Hallman MD [facility] [place] [address] documented as of this encounter Procedures Procedure Name Priority Date/Time Associated Diagnosis Comments CBC (WITH DIFF) Routine 02/18/2021 documented in this encounter Results * CBC (with Diff) (02/18/2021) White Blood Cell 4.33 Hemoglobin 13.6 Hematocrit 40.9 Mean Cell Volume 89.9 Platelet 32 Neutrophil Absolute (ANC) - Automated 2.63 Blood Historical Provider HEMATOLOGY ORDERA BLES documented in this encounter Visit Diagnoses Not on filedocumented in this encounter Care Teams Manager Sound Relationship Specialty Start Date End Date Catracho Vernon MD PCP - General Family Medicine 04/21/18 documented as of this encounter
--- OUTSIDE RECORDS SUMMARY | 2024-05-21 16:09 | XMS_ITS | Encounter Summary ---
Author Organization [facility] Address [facility] [place] [address] Care Team Providers Care Assistant Professor Of Surgery Name Role Phone Catracho Vernon MD Primary Care Provider [phone] Reason for Visit * Reason Comments Skin Check Encounter Details Date Type Department Care Team ([facility] st Contact Info) Description 07/02/2019 1:45 PM EST Office Visit Dermatology at [address] [phone] Deepika Rene MD [facility] [place] [address] SK (seborrheic keratosis); Dermal nevus; Multiple benign [...] CLINIC NOTE Date of service: 07/02/2019 Shanita Noel Francisco : 1945 Provider: Deepika Rene MD Chief Complaint Patient presents with ??? 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 Father had Eczema, Daughter had Psoriasis ?? 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 No Pacemaker or Defibrillator? No Preferred name:??Shanita Preferred method of contact for results:??Home Phone?? OK to leave detailed message including biopsy results if applicable:??Yes Are there any other people with whom we may discuss your care with? , Feliberto Preferred Pharmacy? [facility] Shanita Noel Francisco is a 73 y.o. [...] with waxy stuck-on appearance. C. Right cheek: Oval, fleshy papule. D. Trunk and extremities: Multiple [...] documentation in this encounter. Deepika Rene MD Field Artillery Crewmember of Dermatology, Department of Surgery [facility] documented in this encounter Plan of Treatment Upcoming Encounters Date Type Department Care Team (Late st Contact Info) Description 08/29/2024 1:00 PM EST Office Visit Hematology/Oncology at [address] [phone] Carrie Bruno MD [facility] DR HEMATOLOGY [place] [address] Oliva Mccabe, PHARMACIST [facility] [place] [address] 09/11/2024 1:00 PM EST Office Visit Dermatology at [place] [address] [place] [address] Lizeth Hallman MD [facility] [address] [place] [address] documented as of this encounter Visit Diagnoses Diagnosis SK (seborrheic keratosis) Other seborrheic keratosis Dermal nevus Benign neoplasm of skin, site unspecified Multiple benign nevi Benign neoplasm of skin, site unspecified Dermatofibroma Benign neoplasm of skin, site unspecified Lentigines Other dyschromia Xerosis of skin Other specified disease of sebaceous glands documented in this encounter Care Teams Assistant Professor Of Surgery Relationship Specialty Start Date End Date Catracho Vernon MD PCP - General Family Medicine 04/21/18 documented as of this encounter
--- OUTSIDE RECORDS SUMMARY | 2024-05-21 16:09 | XMS_ITS | Encounter Summary ---
Author Organization [facility] [place] [address] Care Team Providers Care Weaver Needle Loom Name Role Phone Catracho Vernon MD Primary Care Provider [phone] Reason for Visit * Reason Onset Date Comments Other 08/14/2020 covid shot Encounter Details Date Type Department Care Team (Late Contact Info) Description 08/14/2020 Telephone Hematology/Oncology at [address] [phone] Jackie Salinas RN Other (covid [...] calls and states she was called by [facility] for her to get covid vaccine(she has [...] PM EST Office Visit Hematology/Oncology at [address] [phone] Carrie Bruno MD [facility] HEMATOLOGY [place] [address] Oliva Mccabe APRN [facility] HEMATOLOGY [place] [address] 09/11/2024 1:00 PM EST Office Visit Dermatology at [facility] [address] [place] [phone] Lizeth Hallman MD [facility] DR DONTA [place] [address] documented as of this encounter Visit Diagnoses Not on filedocumented in this encounter Care Teams Weaver Needle Loom Relationship Specialty Start Date End Date Catracho Vernon MD PCP - General Family Medicine 04/21/18 documented as of this encounter
--- OUTSIDE RECORDS SUMMARY | 2024-05-21 16:09 | XMS_ITS | Encounter Summary ---
Author Organization [facility] Address [facility] [place] [address] Care Team Providers Care Tobacco Buyer Name Role Phone Catracho Vernon MD Primary Care Provider [phone] Reason for Visit * Reason Onset Date Comments Abnormal Labs 07/11/2020 critical plt Encounter Details Date Type Department Care Team (Late st Contact Info) Description 07/11/2020 Telephone Hematology Oncology at [address] [phone] Madison Corrales, RN Abnormal Labs (critical plt) [...] next week 07/16. I will let Dr. Bruno and ABDLULAHI Lemon know with this note. I spoke [...] PM EST Office Visit Hematology/Oncology at [address] [phone] Carrie Bruno MD [facility] H[place]ATOLOGY [place] [address] Oliva Mccabe APRN [facility] [place] [address] 09/11/2024 1:00 PM EST Office Visit Dermatology at [facility] [address] [place] [address] Lizeth Hallman MD [facility] DR [address] [address] documented as of this encounter Visit Diagnoses Not on filedocumented in this encounter Care Teams Tobacco Buyer Relationship Specialty Start Date End Date Catracho Vernon MD PCP - General Family Medicine 04/21/18 documented as of this encounter
--- OUTSIDE RECORDS SUMMARY | 2024-05-21 16:09 | XMS_ITS | Encounter Summary ---
Author Organization [facility] Address [facility] [place] [address] Care Team Providers Care Sap Bw Architect Name Role Phone Catracho Vernon MD Primary Care Provider [phone] Encounter Details Date Type Department Care Team (Late st Contact Info) Description 07/30/2020 9:00 AM EST Office Visit Hematology/Oncology at [address] [phone] Carrie Heredia MD [facility] DR [place] [address] Stacey Bhatt APRN [facility] [place] [address] Acute ITP Social History Tobacco Use Types [...] 2017- ?? ~06/01- ?? 06/03- ?? 06/08- 47 ?? 07/08- ?? 09/2017- ?? 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 Darryl HAMILTON Has children who work in [place] - her daughter and son-in-law work for [employer] in [employer] [facility]. 2 boys. 3 children total and 4 grandchildren total. Retired [employer]. FAMILY HISTORY: Mother: CAD, renal Father: dementia [...] is 1.8 meters squared. GENERAL: Torrey Noel Conteh appears well and is in no [...] This note was written or modified using [employer] voice recognition software. The final note was screened for mistakes. Please excuse any remaining errors. CARRIE HEREDIA MD documented in this encounter Plan of Treatment Upcoming Encounters Date Type Department Care Team (Late st Contact Info) Description 08/29/2024 1:00 PM EST Office Visit Hematology/Oncology at [address] [phone] Carrie Heredia MD [facility] DR [place] [address] Oliva Mccabe, ABDULLAHI [facility] DR [place] [address] 09/11/2024 1:00 PM EST Office Visit Dermatology at [address] [place] [address] Lizeth Hallman MD [facility] [place] [address] documented as of this encounter Procedures Procedure [...] purpura documented in this encounter Care Teams Sap Bw Architect Relationship Specialty Start Date End Date Catracho Vernon MD PCP - General Family Medicine 04/21/18 documented as of this encounter
--- OUTSIDE RECORDS SUMMARY | 2024-05-21 16:09 | XMS_ITS | Encounter Summary ---
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 Darryl HAMILTON Has children who work in [place] - her daughter and son-in-law work for [employer] in [place]. 2 boys. 3 children total and 4 grandchildren total. Retired [employer]. FAMILY HISTORY: Mother: CAD, renal Father: dementia [...] This note was written or modified using [employer] voice recognition software. The final note was [...] PM EST Office Visit Hematology/Oncology at [address] [phone] Carrie Heredia MD [facility] [place] [address] Oliva Mccabe APRN [facility] [place] [address] 09/11/2024 1:00 PM EST Office Visit Dermatology at [facility] [address] [place] [address] Lizeth Hallman MD [facility] [place] [address] documented as of this encounter Procedures Procedure Name Priority Date/Time Associated Diagnosis Comments CBC (WITH DIFF) Routine 07/16/2020 CBC (WITH DIFF) Routine 07/11/2020 documented in this encounter Results * CBC (with Diff) (07/16/2020) White Blood Cell 5.72 Hemoglobin 14.6 Hematocrit 44.8 Platelet 15 Neutrophil Absolute (ANC) - Automated 3.57 Creatinine 0.97 Blood specimen (specimen) 07/16/2020 Historical Provider HEMATOLOGY ORDERA BLES * CBC (with Diff) (07/11/2020) White Blood Cell 7.45 Hemoglobin 13.9 Hematocrit 42.7 Platelet 16 Neutrophil Absolute (ANC) - Automated 4.68 Blood specimen (specimen) 07/11/2020 Historical Provider HEMATOLOGY ORDERA BLES documented in this encounter Visit Diagnoses Diagnosis Thrombocytopenia Thrombocytopenia, unspecified documented in this encounter Care Teams Computer Tape Librarian Relationship Specialty Start Date End Date Catracho Vernon MD PCP - General Family Medicine 04/21/18 documented as of this encounter
--- OUTSIDE RECORDS SUMMARY | 2024-05-21 16:09 | XMS_ITS | Encounter Summary ---
Author Organization [facility] [place] [address] Care Team Providers Care Trampoline Team Coach Name Role Phone Catracho Vernon MD Primary Care Provider [phone] Reason for Visit * Reason Onset Date Comments Medical Care Coordination 12/04/2018 Encounter Details Date Type Department Care Team (Late Contact Info) Description 12/04/2018 Telephone Hematology Oncology at [address] [phone] Robina Anthony I, [place] Medical Care Coordination [...] have lab drawn today. Discussed with clinical guidance secretary. Patient to have lab done this [...] PM EST Office Visit Hematology/Oncology at [address] [phone] Carrie Bruno MD [facility] [place] [address] Oliva Mccabe, DIP LUBE OPERATOR [facility] [place] [address] 09/11/2024 1:00 PM EST Office Visit Dermatology at [facility] [address] [place] [phone] Lizeth Hallman MD [facility] DR [place] [address] documented as of this encounter Visit Diagnoses Not on filedocumented in this encounter Care Teams Trampoline Team Coach Relationship Specialty Start Date End Date Catracho Vernon MD PCP - General Family Medicine 04/21/18 documented as of this encounter
--- OUTSIDE RECORDS SUMMARY | 2024-05-21 16:09 | XMS_ITS | Encounter Summary ---
Author Organization [facility] [place] [address] Care Team Providers Care Life Scientist Name Role Phone Catracho Vernon MD Primary Care Provider [phone] Reason for Visit * Reason Onset Date Comments Labs Only 03/08/2019 Lab Tracking Encounter Details Date Type Department Care Team (Late st Contact Info) Description 03/08/2019 Telephone Hematology/Oncology at [address] [phone] Bird Kohli, RN Labs Only (Lab Tracking) [...] 1:04 PM EDT LAB TRACKING Torrey Conteh [id number] DIAGNOSIS: Thrombocytopenia LABS ORDERED: cbc diff MEDICATIONS: [...] 1:00 PM EST Office Visit Hematology/Oncology at [address] [phone] Carrie Bruno MD [facility] DR HEMATOLOGY [place] [address] Oliva Mccabe APRN [facility] HEMATOLOGY [place] [address] 09/11/2024 1:00 PM EST Office Visit Dermatology at [facility] [address] [place] [address] Lizeth Hallman MD [facility] DR [place] [address] documented as of this encounter Procedures Procedure Name Priority Date/Time Associated Diagnosis Comments CBC (WITH DIFF) Routine 03/08/2019 documented in this encounter Results * CBC (with Diff) (03/08/2019) White Blood Cell 5.27 Hemoglobin 14.1 Hematocrit 41.4 Platelet 97 Neutrophil Absolute (ANC) - Automated 3.10 Blood specimen (specimen) 03/08/2019 Carrie Bruno MD HEMATOLOGY ORDER JAMIE documented in this encounter Visit Diagnoses Not on filedocumented in this encounter Care Teams Life Scientist Relationship Specialty Start Date End Date Catracho Vernon MD PCP - General Family Medicine 04/21/18 documented as of this encounter
--- OUTSIDE RECORDS SUMMARY | 2024-05-21 16:09 | XMS_ITS | Encounter Summary ---
Author Organization [facility] Address [facility] [place] [address] Care Team Providers Care Oyster Sorter Name Role Phone Catracho Vernon MD Primary Care Provider [phone] Reason for Visit * Reason Comments Skin Check Encounter Details Date Type Department Care Team ([facility] st Contact Info) Description 06/29/2018 11:15 AM EST Office Visit Dermatology at [address] [phone] Deepika Rene MD [facility] [place] [address] SK (seborrheic keratosis); Congenital nevus; Lentigines; Dermatofibroma; [...] stick with an SPF of 30+. Source: [place] [employer] documented in this encounter [...] reaction to the sun. Is going to [facility] this winter for a week and would [...] documentation in this encounter. Deepika Rene MD Occupational Therapy Professor of Dermatology, Department of Surgery [facility] documented in this encounter Plan of Treatment Upcoming Encounters Date Type Department Care Team (Late st Contact Info) Description 08/29/2024 1:00 PM EST Office Visit Hematology/Oncology at [address] [phone] Carrie Bruno MD [facility] [place] [address] Oliva Mccabe, SWITCHMAN SUPERVISOR [facility] [place] [address] 09/11/2024 1:00 PM EST Office Visit Dermatology at [facility] [address] [place] [address] Lizeth Hallman MD [facility] [place] [address] documented as of this encounter Visit Diagnoses Diagnosis SK (seborrheic keratosis) Other seborrheic keratosis Congenital nevus Benign neoplasm of skin, site unspecified Lentigines Other dyschromia Dermatofibroma Benign neoplasm of skin, site unspecified Macular seborrheic keratosis documented in this encounter Care Teams Oyster Sorter Relationship Specialty Start Date End Date Catracho Vernon MD PCP - General Family Medicine 04/21/18 documented as of this encounter
--- OUTSIDE RECORDS SUMMARY | 2024-05-21 16:09 | XMS_ITS | Encounter Summary ---
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 2 boys. 3 children total and 4 grandchildren total. Retired [employer]. FAMILY HISTORY: Mother: CAD, renal Father: dementia [...] This note was written or modified using [employer] voice recognition software. The final note was screened for mistakes. Please excuse any remaining errors. CARRIE HEREDIA MD documented in this encounter Plan of Treatment Upcoming Encounters Date Type Department Care Team (Late st Contact Info) Description 08/29/2024 1:00 PM EST Office Visit Hematology/Oncology at [address] [phone] Carrie Heredia MD [facility] [place] [address] Oliva Mccabe, ABDULLAHI [facility] [place] [address] 09/11/2024 1:00 PM EST Office Visit Dermatology at [facility] [address] [place] [address] Lizeth Hallman MD [facility] [place] [address] documented as of this encounter Visit Diagnoses Diagnosis Thrombocytopenia Thrombocytopenia, unspecified documented in this encounter Care Teams Soft Top Installer Relationship Specialty Start Date End Date Catracho Vernon MD PCP - General Family Medicine 04/21/18 documented as of this encounter
--- OUTSIDE RECORDS SUMMARY | 2024-05-21 16:09 | XMS_ITS | Encounter Summary ---
Author Organization [facility] Address [facility] [place] [address] Care Team Providers Care Solar Photovoltaic Installer Name Role Phone Amelia Avina ABDULLAHI Primary Care Provider [phone] Encounter Details Date Type Department Care Team (Late Contact Info) Description 06/03/2017 Telephone Dermatology at [facility] [address] [place] [address] Deepika Rene MD [facility] [place] [address] Social History Tobacco Use Types Packs/Day Years [...] 1:00 PM EST Office Visit Hematology/Oncology at [address] [address] Carrie Bruno MD [facility] DR HEMATOLOGY [place] [address] Oliva Mccabe APRN [facility] HEMATOLOGY [place] [address] 09/11/2024 1:00 PM EST Office Visit Dermatology at [facility] [address] [place] [address] Lizeth Hallman MD [facility] [place] [address] documented as of this encounter Visit Diagnoses Not on filedocumented in this encounter Care Teams Solar Photovoltaic Installer Relationship Specialty Start Date End Date Amelia Avina, ABDULLAHI [address] [place] [address] PCP - General 01/16/15 06/13/17 documented as of this encounter
--- OUTSIDE RECORDS SUMMARY | 2024-05-21 16:09 | XMS_ITS | Encounter Summary ---
Author Organization [facility] [place] [address] Care Team Providers Care Sewer Name Role Phone Catracho Vernon MD Primary Care Provider [phone] Reason for Visit * Reason Onset Date Comments Labs Only 12/06/2018 lab tracking Encounter Details Date Type Department Care Team (Late st Contact Info) Description 12/06/2018 Telephone Hematology/Oncology at [address] [phone] Jackie Salinas RN Labs Only (lab tracking) [...] 12:05 PM EDT LAB TRACKING Torrey Conteh [id number] DIAGNOSIS: Thrombocytopenia LABS ORDERED: cbc diff MEDICATIONS: [...] PM EST Office Visit Hematology/Oncology at [address] [phone] Carrie Bruno MD [facility] HEMATOLOGY [place] [address] Oliva Mccabe APRN [facility] HEMATOLOGY [place] [address] 09/11/2024 1:00 PM EST Office Visit Dermatology at [facility] [address] [place] [address] Lizeth Hallman MD [facility] DR DONTA [place] [address] documented as of this encounter Procedures Procedure Name Priority Date/Time Associated Diagnosis Comments CBC (WITH DIFF) Routine 12/05/2018 documented in this encounter Results * CBC (with Diff) (12/05/2018) White Blood Cell 7.34 Hemoglobin 14.4 Hematocrit 42.5 Platelet 98 Neutrophil Absolute (ANC) - Automated 4.88 Blood specimen (specimen) 12/05/2018 Historical Provider HEMATOLOGY ORDERA BLES documented in this encounter Visit Diagnoses Not on filedocumented in this encounter Care Teams Sewer Relationship Specialty Start Date End Date Catracho Vernon MD PCP - General Family Medicine 04/21/18 documented as of this encounter
--- OUTSIDE RECORDS SUMMARY | 2024-05-21 16:09 | XMS_ITS | Encounter Summary ---
Author Organization [facility] [place] [address] Care Team Providers Care Construction Services Technician Name Role Phone Catracho Vernon MD Primary Care Provider Encounter Details Date Type Department Care Team (Latest Contact Info) Description 04/21/2018 1:42 PM EDT - 04/21/2018 11:59 PM EDT Hospital Encounter Hematology [place] [address] Thrombocytopenia Discharge Disposition: Home Social History Tobacco [...] PM EST Office Visit Hematology/Oncology at [address] [phone] Carrie Bruno MD [facility] [address] [place] [address] Oliva Mccabe APRN [facility] [place] [address] 09/11/2024 1:00 PM EST Office Visit [facility] at [facility] [address] [place] [address] Lizeth Hallman MD [facility] [place] [address] documented as of this encounter Procedures Procedure Name Priority Date/Time Associated Diagnosis Comments HEMOGRAM Routine 04/21/2018 1:46 PM EDT Thrombocytopenia DIFFERENTIAL, AUTOMATED Routine 04/21/2018 1:46 PM EDT Thrombocytopenia CBC (WITH DIFF) Routine 04/21/2018 1:46 PM EDT Thrombocytopenia documented in this encounter Results * Differential, Automated (04/21/2018 1:46 PM EDT) Neutrophil % 58.0 % [facility] Neutrophil Absolute 3.63 1.70 - 6.10 x10(3)/[facility] Lymph % 29.0 % [facility] Lymphocytes Abs 1.8 0.9 - 3.2 x10(3)/[facility] Monocyte % 10.0 % [facility] Monocyte Abs 0.6 0.3 - 0.9 x10(3)/[facility] Eos % 1.4 % [facility] Eosinophils Abs 0.1 0.0 - 0.4 x10(3)/[facility] Basophil % 1.3 % [facility] Baso Absolute 0.1 0.0 - 0.1 x10(3)/[facility] Immature Gran % 0.30 % [facility] Comment: Immature granulocytes(IG's)percentage and absolute count will include metamyelocytes, myelocytes, and promyelocytes. Blood smears from CBCs yielding IG's will be scanned manually for concordance. If this scan disagrees with the automated IG or if promyelocytes are noted, a manual differential will be performed. Immature Gran Absolute 0.02 0.00 - 0.04 x10(3)/[facility] Blood specimen (specimen) 04/21/2018 1:46 PM EDT 04/21/2018 1:57 PM EDT Narrative Resulting Agency Comment Spec In Lab Mil Jade MD HEMATOLOGY ORDERAB LES [facility] [place] [address] * (ABNORMAL) Hemogram (04/21/2018 1:46 PM EDT) White Blood Cell 6.3 4.0 - 9.5 x10(3)/[facility] Red Blood Cell 4.85 4.00 - 5.21 x10(6)/[facility] Hemoglobin 14.4 11.7 - 15.5 gm/dL [facility] Hematocrit 43.0 35.7 - 45.8 % [facility] Mean Cell Volume 88.7 82.6 - 94.4 [facility] Mean Cell Hemoglobin 29.7 27.1 - 32.0 pg [facility] Mean Cell Hemoglobin Concentration 33.5 31.7 - 35.0 gm/dL [facility] Platelet 33(L) 145 - 357 x10(3)/[facility] RDW Standard Deviation 40.5 37.0 - 46.0 [facility] RDW coefficient of variation 12.4 11.5 - 14.1 % [facility] Mean Platelet Volume 13.0(H) 7.6 - 12.9 [facility] NRBC% auto 0.0 % [facility] NRBC Absolute 0.000 0.000 - 0.000 x10(3)/[facility] Blood specimen (specimen) 04/21/2018 1:46 PM EDT 04/21/2018 1:57 PM EDT Narrative Resulting Agency Comment Spec In Lab Mil Jade MD HEMATOLOGY ORDERAB LES [facility] [place] [address] documented in this encounter Visit Diagnoses Diagnosis Thrombocytopenia Thrombocytopenia, unspecified documented in this encounter Care Teams Construction Services Technician Relationship Specialty Start Date End Date Catracho Vernon MD PCP - General Family Medicine 04/21/18 documented as of this encounter
--- OUTSIDE RECORDS SUMMARY | 2024-05-21 16:09 | XMS_ITS | Encounter Summary ---
Author Organization [facility] Address [facility] [place] [address] Care Team Providers Care Hydroelectric Station Chief Name Role Phone Catracho Vernon MD Primary Care Provider [phone] Encounter Details Date Type Department Care Team (Late st Contact Info) Description 12/19/2019 9:00 AM EDT TH Visit (TeleHealth) Hematology/Oncology at [address] [phone] Carrie Heredia MD [facility] DR HEMATOLOGY [place] [address] Stacey Bhatt APRN [facility] DR HEMATOLOGY [place] [address] Thrombocytopenia Social History Tobacco Use Types Packs/Day [...] ?? Plts ?? 2014- ?? 2017- ?? ~ ? 09/2017- 111 ?? 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 50th wedding anniversary is 2019! Rare ALFONSO Has children who work in [place] - her daughter and son-in-law work for [employer] in [place]. 2 boys. 3 children total and 4 grandchildren total. Retired [employer]. FAMILY HISTORY: Mother: CAD, renal Father: dementia [...] This note was written or modified using [employer] voice recognition software. The final note was screened for mistakes. Please excuse any remaining errors. CARRIE HEREDIA MD documented in this encounter Plan of Treatment Upcoming Encounters Date Type Department Care Team (Late st Contact Info) Description 08/29/2024 1:00 PM EST Office Visit Hematology/Oncology at [address] [phone] Carrie Heredia MD [facility] DR HEMATOLOGY [place] [address] Oliva Mccabe APRN [facility] [place] [address] 09/11/2024 1:00 PM EST Office Visit Dermatology at [facility] [address] [place] [address] Lizeth Hallman MD [facility] [address] [place] [address] documented as of this encounter Procedures Procedure Name Priority Date/Time Associated Diagnosis Comments CBC (WITH DIFF) Routine 12/13/2019 documented in this encounter Results * CBC (with Diff) (12/13/2019) White Blood Cell 4.65 Hemoglobin 14.5 Hematocrit 43.5 Platelet 122 Neutrophil Absolute (ANC) - Automated 2.49 Creatinine 0.95 Calcium 10.2 Albumin 4.1 Blood specimen (specimen) 12/13/2019 Historical Provider HEMATOLOGY ORDERA BLES documented in this encounter Visit Diagnoses Diagnosis Thrombocytopenia Thrombocytopenia, unspecified documented in this encounter Care Teams Hydroelectric Station Chief Relationship Specialty Start Date End Date Catracho Vernon MD PCP - General Family Medicine 04/21/18 documented as of this encounter
--- OUTSIDE RECORDS SUMMARY | 2024-05-21 16:09 | XMS_ITS | Encounter Summary ---
Author Organization [facility] [place] [address] Care Team Providers Care Wedding Consultant Name Role Phone Catracho Vernon MD Primary Care Provider [phone] Encounter Details Date Type Department Care Team (Late st Contact Info) Description 07/17/2020 Telephone Hematology/Oncology at [address] [phone] Jackie Salinas RN Social History Tobacco Use Types Packs/Day [...] PM EST Office Visit Hematology/Oncology at [address] [phone] Carrie Bruno MD [facility] HEMATOLOG[place] [address] Oliva Mccabe APRN [facility] HEM[place] [address] 09/11/2024 1:00 PM EST Office Visit Dermatology at [address] [place] [phone] Lizeth Hallman MD [facility] DR DON[place] [address] documented as of this encounter Procedures Procedure Name Priority Date/Time Associated Diagnosis Comments CBC (WITH DIFF) Routine 07/17/2020 documented in this encounter Results * CBC (with Diff) (07/17/2020) White Blood Cell 18.58 Hemoglobin 14.6 Hematocrit 43.0 Platelet 50 Neutrophil Absolute (ANC) - Automated 17.3 Blood specimen (specimen) 07/17/2020 Historical Provider HEMATOLOGY ORDERA BLES documented in this encounter Visit Diagnoses Not on filedocumented in this encounter Care Teams Wedding Consultant Relationship Specialty Start Date End Date Catracho Vernon MD PCP - General Family Medicine 04/21/18 documented as of this encounter
--- OUTSIDE RECORDS SUMMARY | 2024-05-21 16:09 | XMS_ITS | Encounter Summary ---
Author Organization [facility] [place] [address] Care Team Providers Care Compound Specialist Name Role Phone Catracho Vernon MD Primary Care Provider [phone] Reason for Visit * Reason Onset Date Comments Labs Only 08/04/2020 Lab tracking Encounter Details Date Type Department Care Team (Late st Contact Info) Description 08/04/2020 Telephone Hematology/Oncology at [address] [phone] Leah Ray, RN Labs Only (Lab tracking) [...] to schedule labs 08/11. And will go spanish moss picker Dex to start tomorrow. Results for TORREY [...] 1:00 PM EST Office Visit Hematology/Oncology at [address] [phone] Carrie Bruno MD [facility] DR HEMATOLOGY [place] [address] Oliva Mccabe APRN [facility] DR HEMATOLOGY [place] [address] 09/11/2024 1:00 PM EST Office Visit Dermatology at [facility] [address] [place] [address] Lizeth Hallman MD [facility] DR DONTA [place] [address] documented as of this encounter Procedures Procedure Name Priority Date/Time Associated Diagnosis Comments CBC (WITH DIFF) Routine 08/04/2020 documented in this encounter Results * (ABNORMAL) CBC (with Diff) (08/04/2020) White Blood Cell 5.54 Hemoglobin 14.2 Hematocrit 43.8 Platelet 41(A) 130 - 400 Neutrophil Absolute (ANC) - Automated 3.39 Blood specimen (specimen) 08/04/2020 Carrie Bruno MD HEMATOLOGY ORDER JAMIE documented in this encounter Visit Diagnoses Not on filedocumented in this encounter Care Teams Compound Specialist Relationship Specialty Start Date End Date Catracho Vernon MD PCP - General Family Medicine 04/21/18 documented as of this encounter
--- OUTSIDE RECORDS SUMMARY | 2024-05-21 16:09 | XMS_ITS | Encounter Summary ---
Author Organization [facility] Address [facility] [place] [address] Care Team Providers Care Tufting Machine Fixer Name Role Phone Catracho Vernon MD Primary Care Provider [phone] Encounter Details Date Type Department Care Team (Late Contact Info) Description 12/13/2019 Orders Only Hematology/Oncology at [address] [phone] Carrie Bruno MD [facility] [place] [address] Thrombocytopenia Social History Tobacco Use Types Packs/Day [...] 1:00 PM EST Office Visit Hematology/Oncology at [address] [phone] Carrie Bruno MD [facility] [place] [address] Oliva Mccabe, PODOPEDIATRICIAN [facility] [place] [address] 09/11/2024 1:00 PM EST Office Visit Dermatology at [address] [place] [phone] Lizeth Hallman MD [facility] [place] [address] documented as of this encounter Visit Diagnoses Diagnosis Thrombocytopenia Thrombocytopenia, unspecified documented in this encounter Care Teams Tufting Machine Fixer Relationship Specialty Start Date End Date Catracho Vernon MD PCP - General Family Medicine 04/21/18 documented as of this encounter
--- OUTSIDE RECORDS SUMMARY | 2024-05-21 16:09 | XMS_ITS | Encounter Summary ---
Author Organization [facility] Address [facility] [place] [address] Care Team Providers Care Draw Frame Tender Name Role Phone Catracho Vernon MD Primary Care Provider [phone] Reason for Visit * Reason Comments Follow-up Encounter Details Date Type Department Care Team ([facility] Contact Info) Description 04/28/2018 9:30 AM EDT Office Visit [place]ology [place] [address] Mil Jade MD [facility] DR HEMATOLOGY [place] [address] Chronic ITP (idiopathic thrombocytopenia) Social History Tobacco [...] 09/2017- ?? 09/2017- 111 ?? 04/21- ?? (after dexamethasone) ?? HepC/ HIV- negative Treatment [...] J's once stable. Mil Jade MD Pager [phone] documented in this encounter Plan of Treatment Upcoming Encounters Date Type Department Care Team (Late st Contact Info) Description 08/29/2024 1:00 PM EST Office Visit Hematology/Oncology at [address] [address] Carrie Bruno MD [facility] [place] [address] Oliva Mccabe APRN [facility] [place] [address] 09/11/2024 1:00 PM EST Office Visit Dermatology at [address] [place] [address] Lizeth Hallman MD [facility] DR [place] [address] documented as of this encounter Visit Diagnoses Diagnosis Chronic ITP (idiopathic thrombocytopenia) Immune thrombocytopenic purpura documented in this encounter Care Teams Draw Frame Tender Relationship Specialty Start Date End Date Catracho Vernon MD PCP - General Family Medicine 04/21/18 documented as of this encounter
--- OUTSIDE RECORDS SUMMARY | 2024-05-21 16:09 | XMS_ITS | Encounter Summary ---
Author Organization [facility] [place] [address] Care Team Providers Care Epic Interface Analyst Name Role Phone Catracho Vernon MD Primary Care Provider [phone] Encounter Details Date Type Department Care Team (Late Contact Info) Description 07/16/2020 Orders Only Hematology/Oncology at [address] [phone] Jackie Salinas RN Thrombocytopenia Social History Tobacco [...] 1:00 PM EST Office Visit Hematology/Oncology at [address] [phone] Carrie Bruno MD [facility] [address] [place] [address] Oliva Mccabe APRN [facility] [place] [address] 09/11/2024 1:00 PM EST Office Visit [facility] at [facility] [address] [place] [address] Lizeth Hallman MD [facility] [place] [address] documented as of this encounter Visit Diagnoses Diagnosis Thrombocytopenia Thrombocytopenia, unspecified documented in this encounter Care Teams Epic Interface Analyst Relationship Specialty Start Date End Date Catracho Vernon MD PCP - General Family Medicine 04/21/18 documented as of this encounter
--- OUTSIDE RECORDS SUMMARY | 2024-05-21 16:09 | XMS_ITS | Encounter Summary ---
Author Organization [facility] [place] [address] Care Team Providers Care Police Academy Program Coordinator Name Role Phone Catracho Vernon MD Primary Care Provider Reason for Visit * Reason Onset Date Comments Follow-up 05/07/2019 Encounter Details Date Type Department Care Team (Late Contact Info) Description 05/07/2019 Telephone Hematology/Oncology at [address] [phone] Jackie Salinas RN Follow-up Social History Tobacco [...] Dr. Bruno [facility]. Ask pt to call us when she gets this done. documented in this encounter Plan of Treatment Upcoming Encounters Date Type Department Care Team (Late Contact Info) Description 08/29/2024 1:00 PM EST Office Visit Hematology/Oncology at [address] [phone] Carrie Bruno MD [facility] [place] [address] Oliva Mccabe, ABDULLAHI [facility] [place] [address] 09/11/2024 1:00 PM EST Office Visit Dermatology at [facility] [address] [place] [phone] Lizeth Hallman MD [facility] [place] [address] documented as of this encounter Visit Diagnoses Not on filedocumented in this encounter Care Teams Police [employer] Program Coordinator Relationship Specialty Start Date End Date Catracho Vernon MD PCP - General Family Medicine 04/21/18 documented as of this encounter
--- OUTSIDE RECORDS SUMMARY | 2024-05-21 16:09 | XMS_ITS | Encounter Summary ---
Author Organization [facility] Address [facility] [place] [address] Care Team Providers Care Laborer Tree Tapping Name Role Phone Sonali Guzman MD Primary Care Provider [phone] Reason for Visit * Consultation (Routine) - Closed Specialty Diagnoses / Procedures Referred By Contac t Referred To Contact Hematology and Oncology Diagnoses Thrombocytopenia Sonali Guzman MD [address] [place] [address] [facility] Hem Onc [address] [place] [address] Referral ID Status Reason Start Date Expiration Date V isits Requested Visits Authorized [id number] Closed Consult, Test & Treat Connection [facility] 06/14/2017 06/14/2018 1 1 Encounter Details Date Type Department Care Team (Late st Contact Info) Description 07/08/2017 3:30 PM EST Office Visit Hematology [place] [address] Mil Jade MD [facility] DR HEMATOLOGY [place] [address] Thrombocytopenia Social History Tobacco Use [...] Progress Notes * Mil Jade MD - 07/08/2017 3:30 PM EST OUTPATIENT [...] ALLERGIES- reviewed at this visit Medications 07/08/17 6625 Medication Sig Taking? predniSONE (DELTASONE) 20 mg Tablet Take 3 tablets by mouth daily. atovaquone-proguanil (MALARONE) 250-100 mg per tablet Take 1 tablet by mouth daily. Start 1 day before travel to [facility]; daily there and daily for 7 [...] in 3 months. Mil Jade MD Pager: [phone] 07/12/2017 documented in this encounter Plan of Treatment Upcoming Encounters Date Type Department Care Team (Late st Contact Info) Description 08/29/2024 1:00 PM EST Office Visit Hematology/Oncology at [address] [phone] Carrie Bruno MD [facility] HEMATOLOGY [place] [address] Oliva Mccabe APRN [facility] HEMATOLOGY [place] [address] 09/11/2024 1:00 PM EST Office Visit Dermatology at [place] [address] [place] [address] Lizeth Hallman MD [facility] DR DONTA [place] [address] documented as of this encounter Results * (ABNORMAL) Platelet count (07/08/2017 2:35 PM EST) Platelet 67(L) 145 - 357 x10(3)/mc L [facility] Immature Plt % 9.5(H) 0.0 - 7.4 % [facility] Comment: Limitation of the Immature Platelet Fraction (IPF)-May be less reliable when the platelet count is less than 52x584/uL due to statistical imprecision. The IPF value [...] in a decreased state of production. References: [employer] The Clinical Value of the Immature Platelet Fraction (IPF) in Cell Recovery Document Number 10-1143 12/2010 [employer] The Role of the Immature Platelet Fraction (IPF) in the Differential Diagnosis of Thrombocytopenia, Document [id number] V05/07/14 P012/12 Blood specimen (specimen) 07/08/2017 2:35 PM EST 07/08/2017 2:48 PM EST Narrative Resulting Agency Comment Spec In Lab Mil Jade MD HEMATOLOGY ORDERAB LES Performing Organization Address City/State/[facility] Co de Phone Number [facility] [place] [address] documented in this encounter Visit Diagnoses Diagnosis Thrombocytopenia Thrombocytopenia, unspecified documented in this encounter Care Teams Laborer Tree Tapping Relationship Specialty Start Date End Date Sonali Guzman MD [address] [place] [address] PCP - General Family Medicine 07/08/17 04/20/18 documented as of this encounter
--- OUTSIDE RECORDS SUMMARY | 2024-05-21 16:09 | XMS_ITS | Encounter Summary ---
Author Organization [facility] Address [facility] [place] [address] Care Team Providers Care Web Communications Specialist Name Role Phone Sonali Guzman MD Primary Care Provider [phone] Encounter Details Date Type Department Care Team (Latest Contact Info) Description 07/08/2017 2:28 PM EST - 07/08/2017 11:59 PM EST Hospital Encounter Hematology and Oncology at [facility] [place] [address] Thrombocytopenia Discharge Disposition: Home Social History Tobacco [...] daily. Start 1 day before travel to [facility]; daily there and daily for 7 days after. 11 tablet 0 06/30/2012 04/21/2018 CIS Free Text Med - Havrix 1440UNIT/1ML, IM, X 1 05/25/2005 04/21/2018 documented as of this encounter Plan of Treatment Upcoming Encounters Date Type Department Care Team (Late st Contact Info) Description 08/29/2024 1:00 PM EST Office Visit Hematology/Oncology at [address] [phone] Carrie Bruno MD [facility] [place] [address] Oliva Mccabe APRN [facility] [place] [address] 09/11/2024 1:00 PM EST Office Visit Dermatology at [facility] [address] [place] [address] Lizeth Hallman MD [facility] [place] [address] documented as of this encounter Procedures Procedure Name Priority Date/Time Associated Diagnosis Comments HEMOGRAM Routine 07/08/2017 2:35 PM EST Thrombocytopenia DIFFERENTIAL, AUTOMATED Routine 07/08/2017 2:35 PM EST Thrombocytopenia PLATELET COUNT Routine 07/08/2017 2:35 PM EST Thrombocytopenia CBC (WITH DIFF) Routine 07/08/2017 2:35 PM EST Thrombocytopenia documented in this encounter Results * Differential, Automated (07/08/2017 2:35 PM EST) Neutrophil % 62.6 % [facility] Neutrophil Absolute 4.29 1.70 - 6.10 x10(3)/[facility] Lymph % 23.0 % [facility] Lymphocytes Abs 1.6 0.9 - 3.2 x10(3)/[facility] Monocyte % 10.8 % [facility] Monocyte Abs 0.7 0.3 - 0.9 x10(3)/[facility] Eos % 2.2 % [facility] Eosinophils Abs 0.2 0.0 - 0.4 x10(3)/[facility] Basophil % 1.3 % [facility] Baso Absolute 0.1 0.0 - 0.1 x10(3)/[facility] Immature Gran % 0.10 % [facility] Comment: Immature granulocytes(IG's)percentage and absolute count will include metamyelocytes, myelocytes, and promyelocytes. Blood smears from CBCs yielding IG's will be scanned manually for concordance. If this scan disagrees with the automated IG or if promyelocytes are noted, a manual differential will be performed. Immature Gran Absolute 0.01 0.00 - 0.04 x10(3)/[facility] Blood specimen (specimen) 07/08/2017 2:35 PM EST 07/08/2017 2:48 PM EST Narrative Resulting Agency Comment Spec In Lab Mil Jade MD HEMATOLOGY ORDERAB LES Performing Organization Address City/State/[facility] Co de Phone Number [facility] [place] [address] * (ABNORMAL) Hemogram (07/08/2017 2:35 PM EST) White Blood Cell 6.9 4.0 - 9.5 x10(3)/[facility] Red Blood Cell 4.64 4.00 - 5.21 x10(6)/[facility] Hemoglobin 14.1 11.7 - 15.5 gm/dL [facility] Hematocrit 41.4 35.7 - 45.8 % [facility] Mean Cell Volume 89.2 82.6 - 94.4 fL [facility] Mean Cell Hemoglobin 30.4 27.1 - 32.0 pg [facility] Mean Cell Hemoglobin Concentration 34.1 31.7 - 35.0 gm/dL [facility] Platelet 67(L) 145 - 357 x10(3)/[facility] RDW Standard Deviation 41.3 37.0 - 46.0 fL [facility] RDW coefficient of variation 12.6 11.5 - 14.1 % [facility] Mean Platelet Volume 12.4 7.6 - 12.9 fL [facility] NRBC% auto 0.0 % [facility] NRBC Absolute 0.000 0.000 - 0.000 x10(3)/mcL [facility] Blood specimen (specimen) 07/08/2017 2:35 PM EST 07/08/2017 2:48 PM EST Narrative Resulting Agency Comment Spec In Lab Mil Jade MD HEMATOLOGY ORDERAB LES [facility] [place] [address] * (ABNORMAL) Platelet count (07/08/2017 2:35 PM EST) Platelet 67(L) 145 - 357 x10(3)/mc L [facility] Immature Plt % 9.5(H) 0.0 - 7.4 % [facility] Comment: Limitation of the Immature Platelet Fraction (IPF)-May be less reliable when the platelet count is less than 48u048/uL due to statistical imprecision. The IPF value [...] in a decreased state of production. References: [employer] The Clinical Value of the Immature Platelet Fraction (IPF) in Cell Recovery Document Number 10-1143 12/2010 [employer] The Role of the Immature Platelet Fraction (IPF) in the Differential Diagnosis of Thrombocytopenia, Document MKT-10-1209 V05 P012/12 Blood specimen (specimen) 07/08/2017 2:35 PM EST 07/08/2017 2:48 PM EST Narrative Resulting Agency Comment Spec In Lab Mil Jade MD HEMATOLOGY ORDERAB LES Performing Organization Address City/State/[facility] Co de Phone Number [facility] [place] [address] documented in this encounter Visit Diagnoses Diagnosis Thrombocytopenia Thrombocytopenia, unspecified documented in this encounter Care Teams Web Communications Specialist Relationship Specialty Start Date End Date Sonali Guzman MD [address] [place] [address] PCP - General Family Medicine 07/08/17 04/20/18 documented as of this encounter
--- OUTSIDE RECORDS SUMMARY | 2024-05-21 16:09 | XMS_ITS | Encounter Summary ---
Author Organization [facility] [place] [address] Care Team Providers Care Route Aide Name Role Phone Catracho Vernon MD Primary Care Provider [phone] Encounter Details Date Type Department Care Team (Latest Contact Info) Description 04/28/2018 8:25 AM EDT - 04/28/2018 11:59 PM EDT Hospital Encounter [place] [address] Thrombocytopenia Discharge Disposition: Home Social History Tobacco [...] PM EST Office Visit Hematology/Oncology at [address] [phone] Carrie Bruno MD [facility] [address] [place] [address] Oliva Mccabe APRN [facility] [place] [address] 09/11/2024 1:00 PM EST Office Visit Dermatology at [facility] [address] [place] [address] Lizeth Hallman MD [facility] [address] documented as of this encounter Procedures Procedure Name Priority Date/Time Associated Diagnosis Comments HEMOGRAM Routine 04/28/2018 8:34 AM EDT Thrombocytopenia DIFFERENTIAL, AUTOMATED Routine 04/28/2018 8:34 AM EDT Thrombocytopenia CBC (WITH DIFF) Routine 04/28/2018 8:34 AM EDT Thrombocytopenia documented in this encounter Results * (ABNORMAL) Differential, Automated (04/28/2018 8:34 AM EDT) Neutrophil % 63.9 % [facility] Neutrophil Absolute 5.77 1.70 - 6.10 x10(3)/mc L [facility] Lymph % 25.2 % [facility] Lymphocytes Abs 2.3 0.9 - 3.2 x10(3)/mc L [facility] Monocyte % 8.9 % [facility] Monocyte Abs 0.8 0.3 - 0.9 x10(3)/mc L [facility] Eos % 1.0 % [facility] Eosinophils Abs 0.1 0.0 - 0.4 x10(3)/mc L [facility] Basophil % 0.1 % [facility] Baso Absolute 0.0 0.0 - 0.1 x10(3)/mc L [facility] Immature Gran % 0.90 % [facility] Comment: Immature granulocytes(IG's)percentage and absolute count will include metamyelocytes, myelocytes, and promyelocytes. Blood smears from CBCs yielding IG's will be scanned manually for concordance. If this scan disagrees with the automated IG or if promyelocytes are noted, a manual differential will be performed. Immature Gran Absolute 0.08(H) 0.00 - 0.04 x10(3)/ L [facility] Blood specimen (specimen) 04/28/2018 8:34 AM EDT 04/28/2018 8:38 AM EDT Narrative Resulting Agency Comment Spec In Lab Mil Jade MD HEMATOLOGY ORDERAB LES [facility] [place] [address] * (ABNORMAL) Hemogram (04/28/2018 8:34 AM EDT) White Blood Cell 9.0 4.0 - 9.5 x10(3)/[facility] Red Blood Cell 4.91 4.00 - 5.21 x10(6)/[facility] Hemoglobin 14.9 11.7 - 15.5 gm/dL [facility] Hematocrit 44.4 35.7 - 45.8 % [facility] Mean Cell Volume 90.4 82.6 - 94.4 fL [facility] Mean Cell Hemoglobin 30.3 27.1 - 32.0 pg [facility] Mean Cell Hemoglobin Concentration 33.6 31.7 - 35.0 gm/dL [facility] Platelet 111(L) 145 - 357 x10(3)/[facility] RDW Standard Deviation 41.1 37.0 - 46.0 [facility] RDW coefficient of variation 12.5 11.5 - 14.1 % [facility] Mean Platelet Volume 10.9 7.6 - 12.9 [facility] NRBC% auto 0.0 % [facility] NRBC Absolute 0.000 0.000 - 0.000 x10(3)/[facility] Blood specimen (specimen) 04/28/2018 8:34 AM EDT 04/28/2018 8:38 AM EDT Narrative Resulting Agency Comment Spec In Lab Mil Jade MD HEMATOLOGY ORDERAB LES [facility] [place] [address] documented in this encounter Visit Diagnoses Diagnosis Thrombocytopenia Thrombocytopenia, unspecified documented in this encounter Care Teams Route Aide Relationship Specialty Start Date End Date Catracho Vernon MD PCP - General Family Medicine 04/21/18 documented as of this encounter
--- OUTSIDE RECORDS SUMMARY | 2024-05-21 16:09 | XMS_ITS | Encounter Summary ---
Author Organization [facility] [place] [address] Care Team Providers Care Cushion Filler Name Role Phone Catracho Vernon MD Primary Care Provider [phone] Reason for Visit * Reason Onset Date Comments Other 08/21/2020 loose stools Encounter Details Date Type Department Care Team (Late Contact Info) Description 08/21/2020 Telephone Hematology/Oncology at [address] [phone] Jackie Sailnas RN Other (loose stools) Social History Tobacco [...] 1:00 PM EST Office Visit Hematology/Oncology at [address] [phone] Carrie Bruno MD [facility] [place] [address] Oliva Mccabe APRN [facility] [place] [address] 09/11/2024 1:00 PM EST Office Visit Dermatology at [facility] [address] [place] [phone] Lizeth Hallman MD [facility] [address] [place] [address] documented as of this encounter Visit Diagnoses Not on filedocumented in this encounter Care Teams Cushion Filler Relationship Specialty Start Date End Date Catracho Vernon MD PCP - General Family Medicine 04/21/18 documented as of this encounter
--- OUTSIDE RECORDS SUMMARY | 2024-05-21 16:09 | XMS_ITS | Encounter Summary ---
Author Organization [facility] [place] [address] Care Team Providers Care Line Maintainer Name Role Phone Catracho Vernon MD Primary Care Provider [phone] Reason for Visit * Reason Onset Date Comments Labs Only 08/11/2020 lab tracking Encounter Details Date Type Department Care Team (Late st Contact Info) Description 08/11/2020 Telephone Hematology/Oncology at [address] [phone] Jackie Salinas RN Labs Only [...] 1:00 PM EST Office Visit Hematology/Oncology at [address] [phone] Carrie Bruno MD [facility] [place] [address] Oliva Mccabe APRN [facility] [place] [address] 09/11/2024 1:00 PM EST Office Visit Dermatology at [address] [phone] Lizeth Hallman MD [facility] [place] [address] documented as of this encounter Procedures Procedure Name Priority Date/Time Associated Diagnosis Comments CBC (WITH DIFF) Routine 08/11/2020 documented in this encounter Results * CBC (with Diff) (08/11/2020) White Blood Cell 9.73 Hemoglobin 15.7 Hematocrit 46.7 Platelet 167 Neutrophil Absolute (ANC) - Automated 5.87 Blood specimen (specimen) 08/11/2020 Historical Provider HEMATOLOGY ORDERA BLES documented in this encounter Visit Diagnoses Not on filedocumented in this encounter Care Teams Line Maintainer Relationship Specialty Start Date End Date Catracho Vernon MD PCP - General Family Medicine 04/21/18 documented as of this encounter
--- OUTSIDE RECORDS SUMMARY | 2024-05-21 16:09 | XMS_ITS | Encounter Summary ---
Author Organization [facility] [place] [address] Care Team Providers Care Resolution Rep Name Role Phone Catracho Vernon MD Primary Care Provider [phone] Reason for Visit * Reason Onset Date Comments Labs Only 07/28/2020 Lab Tracking Encounter Details Date Type Department Care Team (Late st Contact Info) Description 07/28/2020 Telephone Hematology Oncology at [address] [phone] Ebony Kendall, RN Labs Only (Lab Tracking) [...] 1:00 PM EST Office Visit Hematology/Oncology at [address] [phone] Carrie Bruno MD [facility] HEMATOLOGY [place] [address] Oliva Mccabe, WELL DIGGER [facility] HEMATOLOGY [place] [address] 09/11/2024 1:00 PM EST Office Visit Dermatology at [facility] [address] [place] [phone] Lizeth Hallman MD [facility] [address] [place] [address] documented as of this encounter Procedures Procedure Name Priority Date/Time Associated Diagnosis Comments CBC (WITH DIFF) Routine 07/28/2020 COMPREHENSIVE METABOLIC PANEL Routine 07/28/2020 documented in this encounter Results * Comprehensive metabolic panel (non-fasting) (07/28/2020) Blood Urea Nitrogen 17 Creatinine 0.96 Sodium 140 Potassium 3.8 Calcium 9.4 Bilirubin, Total 0.5 Alkaline Phosphatase 67 Aspartate Aminotransferase 15 Alanine Aminotransferase 33 Blood specimen (specimen) 07/28/2020 Carrie Bruno MD CHEMISTRY ORDERA BLES * CBC (with Diff) (07/28/2020) White Blood Cell 6.57 Red Blood Cell 4.60 Hemoglobin 14.0 Hematocrit 43.0 Platelet 141 Neutrophil Absolute (ANC) - Automated 4.24 Blood specimen (specimen) 07/28/2020 Carrie Bruno MD HEMATOLOGY ORDER JAMIE documented in this encounter Visit Diagnoses Not on filedocumented in this encounter Care Teams Resolution Rep Relationship Specialty Start Date End Date Catracho Vernon MD PCP - General Family Medicine 04/21/18 documented as of this encounter
--- OUTSIDE RECORDS SUMMARY | 2024-05-21 16:09 | XMS_ITS | Encounter Summary ---
Author Organization [facility] Address [facility] [place] [address] Care Team Providers Care Supervisor Powdered Sugar Name Role Phone Catracho Vernon MD Primary Care Provider [phone] Encounter Details Date Type Department Care Team ([facility] st Contact Info) Description 05/12/2018 12:30 PM EDT Office Visit Hematology [place] [address] Mil Jade MD [facility] DR [place] [address] Chronic ITP (idiopathic thrombocytopenia) Social History Tobacco [...] ALLERGIES- reviewed at this visit Medications 05/12/18 1204 Medication Sig Taking? ergocalciferol, vitamin D2, (VITAMIN [...] I will set her up with a consulting nurse in [facility]. Mil Jade MD documented in this encounter Plan of Treatment Upcoming Encounters Date Type Department Care Team (Late st Contact Info) Description 08/29/2024 1:00 PM EST Office Visit Hematology/Oncology at [address] [phone] Carrie Bruno MD [facility] [address] [place] [address] Oliva Mccabe, ABDULLAHI [facility] [place] [address] 09/11/2024 1:00 PM EST Office Visit Dermatology at [facility] [address] [place] [phone] Lizeth Hallman MD [facility] [place] [address] documented as of this encounter Visit Diagnoses Diagnosis Chronic ITP (idiopathic thrombocytopenia) Immune thrombocytopenic purpura documented in this encounter Care Teams Supervisor Powdered Sugar Relationship Specialty Start Date End Date Catracho Vernon MD PCP - General Family Medicine 04/21/18 documented as of this encounter
--- OUTSIDE RECORDS SUMMARY | 2024-05-21 16:09 | XMS_ITS | Encounter Summary ---
Author Organization [facility] Address [facility] [place] [address] Care Team Providers Care Marine Pilot Name Role Phone Catracho Vernon MD Primary Care Provider [phone] Encounter Details Date Type Department Care Team (Late st Contact Info) Description 09/11/2018 10:30 AM EST Office Visit Hematology/Oncology at [address] [phone] Carrie Heredia MD [facility] DR HEMATOLOGY [place] [address] Thrombocytopenia Social History Tobacco Use Types Packs/Day [...] No fevers/ chills/ night sweat. Cold over [place]. No unusual bleeding or bruising. Going on trip but hates to fly b/c she alwaysgets sick when she flies. Her sister has a pelvic mass which is being worked up. In October going to [place] for 8 days over [facility]. Going to [facility]. 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 50th wedding anniversary is 2019! Rare ETOH Has children who work in [place] - her daughter and son-in-law work for [employer] in [place]. 2 boys. 3 children total and 4 grandchildren total. 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 FAMILY HISTORY: Mother: CAD, renal Father: dementia [...] This note was written or modified using [employer] voice recognition software. The final note was screened for mistakes. Please excuse any remaining errors. CARRIE HEREDIA MD documented in this encounter Plan of Treatment Upcoming Encounters Date Type Department Care Team (Late st Contact Info) Description 08/29/2024 1:00 PM EST Office Visit Hematology/Oncology at [address] [phone] Carrie Heredia MD [facility] [address] HEMATOLOGY [place] [address] Oliva Mccabe APRN [facility] HEMATOLOGY [place] [address] 09/11/2024 1:00 PM EST Office Visit Dermatology at [facility] [address] [place] [phone] Lizeth Hallman MD [facility] [address] DONTA [place] [address] documented as of this encounter Visit Diagnoses Diagnosis Thrombocytopenia Thrombocytopenia, unspecified documented in this encounter Care Teams Marine Pilot Relationship Specialty Start Date End Date Catracho Vernon MD PCP - General Family Medicine 04/21/18 documented as of this encounter
--- OUTSIDE RECORDS SUMMARY | 2024-05-21 16:09 | XMS_ITS | Encounter Summary ---
Author Organization [facility] [place] [address] Care Team Providers Care Acoustical Carpenter Name Role Phone Catracho Vernon MD Primary Care Provider Reason for Visit * Reason Onset Date Comments Questions 04/22/2020 Encounter Details Date Type Department Care Team (Late st Contact Info) Description 04/22/2020 Telephone Hematology/Oncology at [address] [phone] Bird Kohli, RN Questions Social [...] 1:00 PM EST Office Visit Hematology/Oncology at [address] [phone] Carrie Bruno MD [facility] H[place]ATOLOGY [place] [address] Oliva Mccabe APRN [facility] [place] [address] 09/11/2024 1:00 PM EST Office Visit Dermatology at [place] [address] [place] [address] Lizeth Hallman MD [facility] DR [address] [place] [address] documented as of this encounter Visit Diagnoses Not on filedocumented in this encounter Care Teams Acoustical Carpenter Relationship Specialty Start Date End Date Catracho Vernon MD PCP - General Family Medicine 04/21/18 documented as of this encounter
--- OUTSIDE RECORDS SUMMARY | 2024-05-21 16:09 | XMS_ITS | Encounter Summary ---
Author Organization [facility] [place] [address] Care Team Providers Care Oncology Consultant Name Role Phone Catracho Vernon MD Primary Care Provider Reason for Visit * Reason Onset Date Comments Labs Only 07/21/2020 lab tracking Encounter Details Date Type Department Care Team (Late st Contact Info) Description 07/21/2020 Telephone Hematology/Oncology at [address] [phone] Jackie Salinas RN Labs Only (lab tracking) [...] PM EST Office Visit Hematology/Oncology at [address] [phone] Carrie Bruno MD [facility] H[place]ATOLOG[place] [address] Oliva Mccabe APRN [facility] [place] [address] 09/11/2024 1:00 PM EST Office Visit Dermatology at [address] [place] [phone] Lizeth Hallman MD [facility] [place] [address] documented as of this encounter Procedures Procedure Name Priority Date/Time Associated Diagnosis Comments CBC (WITH DIFF) Routine 07/21/2020 documented in this encounter Results * CBC (with Diff) (07/21/2020) White Blood Cell 9.41 Hemoglobin 14.8 Hematocrit 44.3 Platelet 163 Neutrophil Absolute (ANC) - Automated 5.82 Blood specimen (specimen) 07/21/2020 Historical Provider HEMATOLOGY ORDERA BLES documented in this encounter Visit Diagnoses Not on filedocumented in this encounter Care Teams Oncology Consultant Relationship Specialty Start Date End Date Catracho Vernon MD PCP - General Family Medicine 04/21/18 documented as of this encounter
--- OUTSIDE RECORDS SUMMARY | 2024-05-21 16:09 | XMS_ITS | Encounter Summary ---
Author Organization [facility] [place] [address] Care Team Providers Care V/Stol Landing Signal Officer Name Role Phone Catracho Vernon MD Primary Care Provider [phone] Reason for Visit * Reason Comments IV Medication Dexamethasone Encounter Details Date Type Department Care Team (Late st Contact Info) Description 07/16/2020 11:30 AM EST Infusion Hematology Oncology at [address] [phone] Thrombocytopenia Social History Tobacco Use Types Packs/Day [...] and BSA by Sherif Corrales RN & [facility] onsite. REACTIONS (DESCRIPTION, TIME, INTERVENTION AND EFFECTIVENESS) [...] PM EST Office Visit Hematology/Oncology at [address] [address] Carrie Bruno MD [facility] HEMATOLOGY [place] [address] Oliva Mccabe APRN [facility] HEMATOLOGY [place] [address] 09/11/2024 1:00 PM EST Office Visit Dermatology at [place] [address] [place] [address] Lizeth Hallman MD [facility] DR DONTA [place] [address] documented as of this encounter Visit Diagnoses [...] mL/hr documented in this encounter Care Teams V/Stol Landing Signal Officer Relationship Specialty Start Date End Date Catracho Vernon MD PCP - General Family Medicine 04/21/18 documented as of this encounter
--- OUTSIDE RECORDS SUMMARY | 2024-05-21 16:09 | XMS_ITS | Encounter Summary ---
Author Organization [facility] [place] [address] Care Team Providers Care Research Agricultural Engineer Name Role Phone Amelia Avina ABDULLAHI Primary Care Provider [phone] Reason for Visit * Reason Comments Skin Check Encounter Details Date Type Department Care Team (Late st Contact Info) Description 04/29/2015 3:15 PM EDT Office Visit Dermatology at [address] [place] [phone] Ajay Weiss MD [address] [facility], YEVGENIY [place] [address] Nevus Discharge Disposition: Home Social History Tobacco Use Types Packs/Day Years Used Date Smoking Tobacco: Never Sex and Gender Information Value Date Recorded Sex Assigned at Not on file Gender Identity Female 08/21/2020 5:05 PM EST Sexual Orientation Not on file documented as of this encounter Patient Instructions * Patient Instructions* Chanel Platt LPN - 04/29/2015 3:27 PM EDT [facility] Actinic Keratosis: After Your Visit Your Care [...] more? Visit our health information library at [email or web address] You can also view health information on PubNub, your personal patient account. Log in or sign up today. Enter L364 in the search box to learn more about Actinic Keratosis: After Your Visit. ?? [id number] [employer]. Care instructions adapted under license by [facility]. This care instruction is for use with your licensed healthcare professional. If you have questions about a medical condition or this instruction, always ask your healthcare professional. [employer] disclaims any warranty or liability for your use of this information. Content Version: 10.4.591787; Current as of: February 28, 2014 documented [...] of the upper chest and back, and [id number] solar elastotic damage as well. Fortunately, careful [...] PM EST Office Visit Hematology/Oncology at [address] [address] Carrie Bruno MD [facility] HEMATOLOGY [place] [address] Oliva Mccabe, ABDULLAHI [facility] HEMATOLOGY [place] [address] 09/11/2024 1:00 PM EST Office Visit Dermatology at [facility] [address] [place] [address] Lizeth Hallman MD [facility] [place] [address] documented as of this encounter Visit Diagnoses Diagnosis Nevus Benign neoplasm of skin, site unspecified documented in this encounter Care Teams Research Agricultural Engineer Relationship Specialty Start Date End Date Amelia Avina APRN [address] [place] [address] PCP - General 01/16/15 06/13/17 documented as of this encounter
--- OUTSIDE RECORDS SUMMARY | 2024-05-21 16:09 | XMS_ITS | Encounter Summary ---
Author Organization [facility] Address [facility] [place] [address] Care Team Providers Care Information Systems Administrator Name Role Phone Catracho Vernon MD Primary Care Provider [phone] Reason for Visit * Reason Comments Follow-up Encounter Details Date Type Department Care Team ([facility] st Contact Info) Description 04/21/2018 1:00 PM EDT Office Visit [place]ology [place] [address] Mil Jade MD [facility] DR HEMATOLOGY [place] [address] Thrombocytopenia Social History Tobacco Use Types Packs/Day [...] to ensure response. Mil Jade MD Pager: [phone] 04/25/2018 documented in this encounter Plan of Treatment Upcoming Encounters Date Type Department Care Team (Late st Contact Info) Description 08/29/2024 1:00 PM EST Office Visit Hematology/Oncology at [address] [phone] Carrie Bruno MD [facility] DR HEMATOLOGY [place] [address] Oliva Mccabe APRN [facility] HEMATOLOGY [place] [address] 09/11/2024 1:00 PM EST Office Visit Dermatology at [facility] [address] [place] [address] Lizeth Hallman MD [facility] DR [address]TA [place] [address] Scheduled Orders Name Type Priority Associated Diagnoses Orde r Schedule CBC (with Diff) Lab Routine Thrombocytopenia Expected: 04/21/2018 (Approximate), Expires: 04/21/2019 documented as of this encounter Visit Diagnoses Diagnosis Thrombocytopenia Thrombocytopenia, unspecified documented in this encounter Care Teams Information Systems Administrator Relationship Specialty Start Date End Date Catracho Vernon MD PCP - General Family Medicine 04/21/18 documented as of this encounter
--- OUTSIDE RECORDS SUMMARY | 2024-05-21 16:09 | XMS_ITS | Encounter Summary ---
Author Organization [facility] [place] [address] Care Team Providers Care Rent And Miscellaneous Remittance Clerk Name Role Phone Catracho Vernon MD Primary Care Provider [phone] Reason for Visit * Reason Onset Date Comments Other 05/09/2019 Encounter Details Date Type Department Care Team ([facility] Contact Info) Description 05/09/2019 Telephone Hematology/Oncology at [address] [address] Jackie Salinas RN Other Social [...] PM EST Office Visit Hematology/Oncology at [address] [phone] Carrie Bruno MD [facility] HEMATOLOGY [place] [address] Oliva Mccabe APRN [facility] HEMATOLOGY [place] [address] 09/11/2024 1:00 PM EST Office Visit Dermatology at [facility] [address] [place] [phone] Lizeth Hallman MD [facility] DR [address]TA [place] [address] documented as of this encounter Procedures Procedure Name Priority Date/Time Associated Diagnosis Comments CBC (WITH DIFF) Routine 05/08/2019 documented in this encounter Results * CBC (with Diff) (05/08/2019) White Blood Cell 8.27 Hemoglobin 14.5 Hematocrit 43.0 Platelet 127 Neutrophil Absolute (ANC) - Automated 5.48 Blood specimen (specimen) 05/08/2019 Historical Provider HEMATOLOGY ORDERA BLES documented in this encounter Visit Diagnoses Not on filedocumented in this encounter Care Teams Rent And Miscellaneous Remittance Clerk Relationship Specialty Start Date End Date Catracho Vernon MD PCP - General Family Medicine 04/21/18 documented as of this encounter
--- OUTSIDE RECORDS SUMMARY | 2024-05-21 16:09 | XMS_ITS | Encounter Summary ---
Author Organization [facility] [place] [address] Care Team Providers Care Donor Specialist Name Role Phone Catracho Vernon MD Primary Care Provider [phone] Reason for Visit * Reason Onset Date Comments Labs Only 08/18/2020 lab tracking Encounter Details Date Type Department Care Team (Late st Contact Info) Description 08/18/2020 Telephone Hematology/Oncology at [address] [phone] Jackie Salinas RN Labs Only [...] PM EST Office Visit Hematology/Oncology at [address] [phone] Carrie Bruno MD [facility] DR HEMATOLOGY [place] [address] Oliva Mccabe, ABDULLAHI [facility] DR HEMATOLOGY [place] [address] 09/11/2024 1:00 PM EST Office Visit Dermatology at [facility] [address] [place] [address] Lizeth Hallman MD [facility] DR [place] [address] documented as of this encounter Procedures Procedure Name Priority Date/Time Associated Diagnosis Comments CBC (WITH DIFF) Routine 08/18/2020 documented in this encounter Results * CBC (with Diff) (08/18/2020) White Blood Cell 7.25 Hemoglobin 13.8 Hematocrit 42.3 Platelet 123 Neutrophil Absolute (ANC) - Automated 5.16 Blood specimen (specimen) 08/18/2020 Historical Provider HEMATOLOGY ORDERA BLES documented in this encounter Visit Diagnoses Not on filedocumented in this encounter Care Teams Donor Specialist Relationship Specialty Start Date End Date Catracho Vernon MD PCP - General Family Medicine 04/21/18 documented as of this encounter
--- OUTSIDE RECORDS SUMMARY | 2024-05-21 16:09 | XMS_ITS | Encounter Summary ---
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 Jade at her [facility] in [facility] but they don't have record of the prescription. Review of records show it was sent to [facility] pharmacy instead. Will re-send the prescription now to [facility] so she can start treatment today. I asked her to call back if she has any further difficulty obtaining it. Tami Gathany, MD MPH Hematology/Oncology Fellow Pager [phone] documented in this encounter Plan of Treatment Upcoming Encounters Date Type Department Care Team (Late st Contact Info) Description 08/29/2024 1:00 PM EST Office Visit Hematology/Oncology at [address] [phone] Carrie Bruno MD [facility] [place] [address] Oliva Mccabe, HELP DESK SUPPORT SPECIALIST [facility] [place] [address] 09/11/2024 1:00 PM EST Office Visit Dermatology at [facility] [address] [place] [address] [address] Lizeth Hallman MD [facility] [address] [place] [address] documented as of this encounter Visit Diagnoses Diagnosis Acute ITP Immune thrombocytopenic purpura documented in this encounter Care Teams Unix Manager Relationship Specialty Start Date End Date Catracho Vernon MD PCP - General Family Medicine 04/21/18 documented as of this encounter
--- OUTSIDE RECORDS SUMMARY | 2024-05-21 16:09 | XMS_ITS | Encounter Summary ---
Author Organization [facility] Address [facility] [place] [address] Care Team Providers Care Agency Legal Counsel Name Role Phone Catracho Vernon MD Primary Care Provider [phone] Encounter Details Date Type Department Care Team (Late st Contact Info) Description 05/30/2019 11:30 AM EDT Office Visit Hematology/Oncology at [address] [phone] Carrie Bruno MD [facility] DR [place] [address] Stacey Bhatt APRN [facility] DR [place]EMATOLOG[place] [address] Thrombocytopenia Social History Tobacco Use Types Packs/Day [...] this encounter Progress Notes * Stacey Bhatt, GERIATRIC SOCIAL WORK PROFESSOR - 05/30/2019 11:30 AM EDT Subjective: Patient [...] and 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 She ahs no other unusual bleeding or [...] PM EST Office Visit Hematology/Oncology at [address] [phone] Carrie Bruno MD [facility] [place]OLOGY [place] [address] Oliva Mccabe APRN [facility] HEMATOLOGY [place] [address] 09/11/2024 1:00 PM EST Office Visit Dermatology at [facility] [address] [place] [address] Lizeth Hallman MD [facility] [place] [address] documented as of this encounter Procedures Procedure Name Priority Date/Time Associated Diagnosis Comments CBC (WITH DIFF) Routine 05/28/2019 COMPREHENSIVE METABOLIC PANEL Routine 05/28/2019 documented in this encounter Results * Comprehensive metabolic panel (non-fasting) (05/28/2019) Blood Urea Nitrogen 20 Creatinine 0.88 Blood specimen (specimen) 05/28/2019 Stacey Bhatt APRN CHEMISTRY ORDERABLES * CBC (with Diff) (05/28/2019) White Blood Cell 4.51 Hemoglobin 14.6 Hematocrit 43.5 Platelet 124 Neutrophil Absolute (ANC) - Automated 2.45 Blood specimen (specimen) 05/28/2019 Stacey Bhatt APRN HEMATOLOGY ORDERABLE S documented in this encounter Visit Diagnoses Diagnosis Thrombocytopenia Thrombocytopenia, unspecified documented in this encounter Care Teams Agency Legal Counsel Relationship Specialty Start Date End Date Catracho Vernon MD PCP - General Family Medicine 04/21/18 documented as of this encounter
--- OUTSIDE RECORDS SUMMARY | 2024-05-21 16:09 | XMS_ITS | Encounter Summary ---
Author Organization [facility] Address [facility] [place] [address] Care Team Providers Care Fur Matcher Name Role Phone Elyssa Mcpherson MD Primary Care Provider [phone] Encounter Details Date Type Department Care Team (Late st Contact Info) Description 06/30/2012 1:30 PM EST Office Visit [place] [address] Carrie Marie, [facility] [place] [address] Foreign travel; Healthcare maintenance Discharge Disposition: Home [...] follow-up boosters, if indicated. Call us at [phone] to schedule an appointment for these vaccines. [...] months after your trip. Call us at [phone] to book this upon your return. Have a great trip! Travel Safely, [email or web address] [phone] documented in this encounter Progress Notes * [...] travel: visiting family, vacation Type of environment: [facility] and rural Accommodations: lodges and [...] PM EST Office Visit Hematology/Oncology at [address] [address] Carrie Bruno MD [facility] HEMATOLOGY [place] [address] Oliva Mccabe APRN [facility] HEMATOLOGY [place] [address] 09/11/2024 1:00 PM EST Office Visit Dermatology at [facility] [address] [place] [phone] Lizeth Hallman MD [facility] [place] [address] documented as of this encounter Visit Diagnoses Diagnosis Foreign travel Other specified conditions influencing health status Healthcare maintenance Routine general medical examination at a health care facility documented in this encounter Care Teams Fur Matcher Relationship Specialty Start Date End Date Elyssa Mcpherson MD [address] [facility] [address] [place] [address] PCP - General 06/30/12 01/01/15 documented as of this encounter
--- OUTSIDE RECORDS SUMMARY | 2024-05-21 16:09 | XMS_ITS | Encounter Summary ---
Author Organization [facility] Address [facility] [place] [address] Care Team Providers Care Train Dispatcher Name Role Phone Sonali Guzman MD Primary Care Provider [phone] Encounter Details Date Type Department Care Team (Late st Contact Info) Description 10/21/2017 2:30 PM EDT Office Visit [place]ematology [place] [address] Mil Jade MD [facility] DR HEMATOLOGY [place] [address] Thrombocytopenia Social History Tobacco Use Types Packs/Day [...] all normal historically ?? Plts ?? 2014- 191 ?? 2017- ?? ~06/01- ? 06/08- ?? [...] daily. Start 1 day before travel to [facility]; daily there and daily for 7 [...] of these risks. Mil Jade MD Pager: [phone] 10/21/2017 documented in this encounter Plan of Treatment Upcoming Encounters Date Type Department Care Team (Late st Contact Info) Description 08/29/2024 1:00 PM EST Office Visit Hematology/Oncology at [address] [address] Carrie Bruno MD [facility] HEMATOLOGY [place] [address] Oliva Mccabe APRN [facility] HEMATOLOGY [place] [address] 09/11/2024 1:00 PM EST Office Visit Dermatology at [place] [address] [place] [address] Lizeth Hallman MD [facility] [address] [place] [address] Scheduled Orders Name Type Priority Associated Diagnoses Orde r Schedule CBC (with Diff) Lab Routine Thrombocytopenia Expected: 10/18/2017 (Approximate), Expires: 10/18/2018 documented as of this encounter Visit Diagnoses Diagnosis Thrombocytopenia Thrombocytopenia, unspecified documented in this encounter Care Teams Train Dispatcher Relationship Specialty Start Date End Date Sonali Guzman MD [address] [place] [address] PCP - General Family Medicine 07/08/17 04/20/18 documented as of this encounter
--- OUTSIDE RECORDS SUMMARY | 2024-05-21 16:09 | XMS_ITS | Encounter Summary ---
Author Organization [facility] Address [facility] [place] [address] Care Team Providers Care Author Agent Name Role Phone Catracho Vernon MD Primary Care Provider [phone] Reason for Referral * High Dollar Medication (Routine) - Specialty Diagnoses / Procedures Referred By Edson t Referred To Contact Hematology and Oncology Diagnoses Thrombocytopenia Carrie Bruno MD [facility] [place] [address] [address] Referral ID Status Reason Start Date Expiration Date V isits Requested Visits Authorized [id number] Consult, Test & Treat 07/23/2020 07/23/2021 1 1 Encounter Details Date Type Department Care Team (Late st Contact Info) Description 07/23/2020 Orders Only Hematology [place] [address] Carrie Bruno MD [facility] DR [place] [address] Thrombocytopenia Social History Tobacco Use [...] PM EST Office Visit Hematology/Oncology at [address] [address] Carrie Bruno MD [facility] [place] [address] Oliva Mccabe APRN [facility] [place] [address] 09/11/2024 1:00 PM EST Office Visit Dermatology at [address] [place] [address] Lizeth Hallman MD [facility] [address] [place] [address] Scheduled Referrals Name Type Priority Associated Diagnoses Order Schedule Auth Request for Infusion Medication Outpatient Referral Routine Thrombocytopenia Ordered: 07/23/2020 documented as of this encounter Visit Diagnoses Diagnosis Thrombocytopenia Thrombocytopenia, unspecified documented in this encounter Care Teams Author Agent Relationship Specialty Start Date End Date Catracho Vernon MD PCP - General Family Medicine 04/21/18 documented as of this encounter
--- OUTSIDE RECORDS SUMMARY | 2024-05-21 16:09 | XMS_ITS | Encounter Summary ---
Author Organization [facility] Address [facility] [place] [address] Care Team Providers Care Embroidery Specialist Name Role Phone Catracho Vernon MD Primary Care Provider [phone] Encounter Details Date Type Department Care Team (Latest Contact Info) Description 05/12/2018 10:55 AM EDT - 05/12/2018 11:59 PM EDT Hospital Encounter [place] [phone] Chronic ITP (idiopathic thrombocytopenia); Thrombocytopenia Discharge Disposition: [...] PM EST Office Visit Hematology/Oncology at [address] [phone] Carrie Bruno MD [facility] [address] [place] [address] Oliva Mccabe APRN [facility] [place] [address] 09/11/2024 1:00 PM EST Office Visit Dermatology at [facility] [address] [place] [phone] Lizeth Hallman MD [facility] [place] [address] Scheduled Orders Name Type Priority Associated Diagnoses [...] * Differential, Automated (05/12/2018 11:03 AM EDT) Neutrophil % 63.5 % [facility] Neutrophil Absolute 2.91 1.70 - 6.10 x10(3)/[facility] Lymph % 24.5 % [facility] Lymphocytes Abs 1.1 0.9 - 3.2 x10(3)/[facility] Monocyte % 9.2 % [facility] Monocyte Abs 0.4 0.3 - 0.9 x10(3)/[facility] Eos % 1.3 % [facility] Eosinophils Abs 0.1 0.0 - 0.4 x10(3)/[facility] Basophil % 1.3 % [facility] Baso Absolute 0.1 0.0 - 0.1 x10(3)/[facility] Immature Gran % 0.20 % [facility] Comment: Immature granulocytes(IG's)percentage and absolute count will include metamyelocytes, myelocytes, and promyelocytes. Blood smears from CBCs yielding IG's will be scanned manually for concordance. If this scan disagrees with the automated IG or if promyelocytes are noted, a manual differential will be performed. Immature Gran Absolute 0.01 0.00 - 0.04 x10(3)/[facility] Blood specimen (specimen) 05/12/2018 11:03 AM EDT 05/12/2018 11:14 AM EDT Narrative Resulting Agency Comment Spec In Lab Mil Jade MD HEMATOLOGY ORDERAB LES Performing Organization Address City/State/[facility] Co de Phone Number [facility] [place] [address] * (ABNORMAL) Hemogram (05/12/2018 11:03 AM EDT) White Blood Cell 4.6 4.0 - 9.5 x10(3)/[facility] Red Blood Cell 4.68 4.00 - 5.21 x10(6)/[facility] Hemoglobin 14.0 11.7 - 15.5 gm/dL [facility] Hematocrit 42.2 35.7 - 45.8 % [facility] Mean Cell Volume 90.2 82.6 - 94.4 fL [facility] Mean Cell Hemoglobin 29.9 27.1 - 32.0 pg [facility] Mean Cell Hemoglobin Concentration 33.2 31.7 - 35.0 gm/dL [facility] Platelet 84(L) 145 - 357 x10(3)/[facility] RDW Standard Deviation 40.7 37.0 - 46.0 fL [facility] RDW coefficient of variation 12.6 11.5 - 14.1 % [facility] Mean Platelet Volume 11.4 7.6 - 12.9 fL [facility] NRBC% auto 0.0 % [facility] NRBC Absolute 0.000 0.000 - 0.000 x10(3)/mcL [facility] Blood specimen (specimen) 05/12/2018 11:03 AM EDT 05/12/2018 11:14 AM EDT Narrative Resulting Agency Comment Spec In Lab Mil Jade MD HEMATOLOGY ORDERAB LES Performing Organization Address City/State/[facility] Co de Phone Number [facility] [place] [address] documented in this encounter Visit Diagnoses Diagnosis Chronic ITP (idiopathic thrombocytopenia) Immune thrombocytopenic purpura Thrombocytopenia Thrombocytopenia, unspecified documented in this encounter Care Teams Embroidery Specialist Relationship Specialty Start Date End Date Catracho Vernon MD PCP - General Family Medicine 04/21/18 documented as of this encounter
--- OUTSIDE RECORDS SUMMARY | 2024-05-21 16:09 | XMS_ITS | Encounter Summary ---
Author Organization [facility] [place] [address] Care Team Providers Care Pack Press Operator Name Role Phone Catracho Vernon MD Primary Care Provider [phone] Encounter Details Date Type Department Care Team (Late Contact Info) Description 06/13/2019 Telephone Hematology/Oncology at [address] [phone] Sherri Ramesh RN Social History Tobacco Use [...] appointment with Dr. Bruno on 07/16/2019 at [facility]. Discussed that there is no appointment for [...] PM EST Office Visit Hematology/Oncology at [address] [phone] Carrie Bruno MD [facility] [place] [address] Oliva Mccabe APRN [facility] [place] [address] 09/11/2024 1:00 PM EST Office Visit Dermatology at [facility] [address] [place] [phone] Lizeth Hallman MD [facility] [address] [place] [address] documented as of this encounter Visit Diagnoses Not on filedocumented in this encounter Care Teams Pack Press Operator Relationship Specialty Start Date End Date Catracho Vernon MD PCP - General Family Medicine 04/21/18 documented as of this encounter
--- OUTSIDE RECORDS SUMMARY | 2024-05-21 16:09 | XMS_ITS | Encounter Summary ---
Author Organization [facility] Address [facility] [place] [address] Care Team Providers Care Roustabout Crew Pusher Name Role Phone Leticia Hernandez MD Primary Care Provider Reason for Visit * Reason Comments Skin Check Focused Exam * Consultation (Routine) - Closed Specialty Diagnoses / Procedures Referred By Edson evans Referred To Contact Dermatology Diagnoses Lentigo--punch biopsy necessary?. Suspicious lesion on left shoulder and left triceps Diane Healy, [place] [address] [place] [address] [facility] Dermatology [address] [place] [address] Referral ID Status Reason Start Date Expiration Date V isits Requested Visits Authorized [id number] Closed Consult, Test & Treat [facility] 06/02/2017 06/02/2018 1 1 Encounter Details Date Type Department Care Team (Late st Contact Info) Description 07/05/2017 10:30 AM EST Office Visit Dermatology at [address] [place] [address] Deepika Rene MD [facility] [place] [address] Dermatofibroma; Dermal nevus; Lentigines; SK [...] end of May by Dr. Garzon in [place], [place]. Asymptomatic to patient. MEDS: Current Outpatient Prescriptions Medication Sig Dispense Refill ??? atovaquone-proguanil (MALARONE) 250-100 mg per tablet Take 1 tablet by mouth daily. Start 1 daybefore travel to 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 B. Right cheek and chin: [place] fleshy papules C. Trunk and extremities: Scattered [...] documentation in this encounter. Deepika Rene MD Clip Loading Machine Adjuster of Dermatology, Department of Mortgage ProcessorClip Loading Machine Adjusterplater helper (Dermatopathology) [facility] cc: Leticia Hernandez MD documented in this encounter Plan of Treatment Upcoming Encounters Date Type Department Care Team (Late st Contact Info) Description 08/29/2024 1:00 PM EST Office Visit Hematology/Oncology at [address] [phone] Carrie Bruno MD [facility] DR [place] [address] Oliva Mccabe, CIGAR MAKING MACHINE SUPERVISOR [facility] [place] [address] 09/11/2024 1:00 PM EST Office Visit Dermatology at [place] [address] [place] [phone] Lizeth Hallman MD [facility] [place] [address] documented as of this encounter Visit Diagnoses Diagnosis Dermatofibroma Benign neoplasm of skin, site unspecified Dermal nevus Benign neoplasm of skin, site unspecified Lentigines Other dyschromia SK (seborrheic keratosis) Other seborrheic keratosis documented in this encounter Care Teams Roustabout Crew Pusher Relationship Specialty Start Date End Date Leticia Hernandez MD [address] [place] [address] PCP - General Family Medicine 06/14/17 07/07/17 documented as of this encounter
--- OUTSIDE RECORDS SUMMARY | 2024-05-21 16:09 | XMS_ITS | Encounter Summary ---
Author Organization [facility] Address [facility] [place] [address] Care Team Providers Care Plant Attendant Or Assistant Operator Name Role Phone Catracho Vernon MD Primary Care Provider [phone] Encounter Details Date Type Department Care Team (Late st Contact Info) Description 12/06/2018 9:30 AM EDT Office Visit Hematology/Oncology at [address] [phone] Carrie Heredia MD [facility] DR [place] [address] Stacey Bhatt APRN [facility] [place] [address] Thrombocytopenia Social History Tobacco Use Types Packs/Day [...] No illnesses or viruses. Took trip to [place]. Had a great time! 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 50th wedding anniversary is 2019! Rare ETOH Has children who work in [place] - her daughter and son-in-law work for [employer] in [place]. 2 boys. 3 children total and 4 grandchildren total. Retired [employer]. FAMILY HISTORY: Mother: CAD, renal Father: dementia [...] ?? CBC first week of March at [facility] with RN tracking I discussed all of the above with the patient and all of her questions were answered. Support and counseling given as appropriate. Shanita Francisco knows that she can call us any time with questions orconcerns. This note was written or modified using inexio voice recognition software. The final note was screened for mistakes. Please excuse any remaining errors. CARRIE HEREDIA MD documented in this encounter Plan of Treatment Upcoming Encounters Date Type Department Care Team (Late st Contact Info) Description 08/29/2024 1:00 PM EST Office Visit Hematology/Oncology at [address] [phone] Carrie Heredia MD [facility] [place] [address] Oliva Mccabe APRN [facility] [place] [address] 09/11/2024 1:00 PM EST Office Visit Dermatology at [facility] [address] [place] [phone] Lizeth Hallman MD [facility] [place] [address] documented as of this encounter Visit Diagnoses Diagnosis Thrombocytopenia Thrombocytopenia, unspecified documented in this encounter Care Teams Plant Attendant Or Assistant Operator Relationship Specialty Start Date End Date Catracho Vernon MD PCP - General Family Medicine 04/21/18 documented as of this encounter
--- OUTSIDE RECORDS SUMMARY | 2024-05-21 16:09 | XMS_ITS | Encounter Summary ---
Author Organization [facility] Address [facility] [place] [address] Care Team Providers Care Workers Compensation Claims Adjuster Name Role Phone Catracho Vernon MD Primary Care Provider [phone] Encounter Details Date Type Department Care Team ([facility] st Contact Info) Description 07/23/2020 1:30 PM EST TH Visit (TeleHealth) Hematology [place] [address] Carrie Bruno MD [facility] DR [place] [address] Thrombocytopenia; Acute ITP Social History Tobacco Use [...] ?? Rituxan 100mg weekly X 4 ?? PLANT HEALTH CARE TECHNICIAN teaching for rituxan ?? Check CBC, Hep B and Hep C 07/28 at [facility] Ref: Journal of hematology 2013 Florentino-Jacque. I spent 30 min on this telehealth encounter including chart review, time with the patient and documentation. 1:40-2:10pm documented in this encounter Plan of Treatment Upcoming Encounters Date Type Department Care Team (Late st Contact Info) Description 08/29/2024 1:00 PM EST Office Visit Hematology/Oncology at [address] [phone] Carrie Bruno MD [facility] DR [place] [address] Oliva Mccabe, FORESTRY AND WILDLIFE MANAGER [facility] DR [place] [address] 09/11/2024 1:00 PM EST Office Visit Dermatology at [place] [address] [place] [address] Lizeth Hallman MD [facility] [place] [address] documented as of this encounter Visit Diagnoses Diagnosis Thrombocytopenia Thrombocytopenia, unspecified Acute ITP Immune thrombocytopenic purpura documented in this encounter Care Teams Workers Compensation Claims Adjuster Relationship Specialty Start Date End Date Catracho Vernon MD PCP - General Family Medicine 04/21/18 documented as of this encounter
== END 2024-05-21 16:23 ==
LOC: DI 16:05
PROVIDERS: PCP Family Medicine; Visit Provider Nurse Practitioner Family
DX: M17.12 Unilateral primary osteoarthritis, left knee (principal)
CPT/HCPCS: 73562

== ENCOUNTER → 2024-07-19 10:17 | Outpatient (BNVA) | payer MEDICARE, SELFPAY | PROVIDERS: PCP Nurse Practitioner Family; Referring Provider Nurse Practitioner Family; Visit Provider Student in an Organized Health Care Education/Training Program | DX: M17.12 Unilateral primary osteoarthritis, left knee (principal) | CPT/HCPCS: 99203 ==

== ENCOUNTER 2024-08-21 02:33 | Outpatient (CLI) | payer MEDICARE, SELFPAY ==
[2024-08-21 13:43] LABS: Abs Immature Grans 0.02 10^3/uL (0.0-0.06); Absolute Basophil Count 0.11 10^3/uL (0.0-0.2); Absolute Eosinophil Count 0.13 10^3/uL (0.0-0.7); Absolute Lymphocyte Count 1.76 10^3/uL (1.2-3.4); Absolute Neutrophil Count 4.03 10^3/uL (1.2-6.7); Basophils % 1.7 %; HCT 44.4 % (36.0-46.0); HGB 14.3 g/dL (11.2-15.7); Immature Grans % 0.3 %; Lymphocytes % 26.9 %; MCH 30.1 pg (27.0-33.0); MCHC 32.2 % (32.0-36.0); MCV 94 fL (80-95); MPV 10.9 fL (8.0-11.0); Monocytes % 7.6 %; Neutrophils % 61.5 %; Platelet Count 126 10^3/uL (130-400); RBC 4.75 10^6/uL (3.93-5.22); RDW 12.3 % (11.7-14.6); RDW-SD 42.7 fL; WBC 6.55 10^3/uL (4.4-10.8)
== END 2024-08-21 02:34 | disposition home or self-care (01) ==
PROVIDERS: PCP Nurse Practitioner Family; Visit Provider Nurse Practitioner Adult Health
DX: D69.6 Thrombocytopenia, unspecified (principal); D69.3 Immune thrombocytopenic purpura
CPT/HCPCS: 36415; 85025

== ENCOUNTER 2024-10-11 22:34 | Outpatient (REF) | payer MEDICARE, SELFPAY ==
[2024-10-11 21:54] LABS: Bacteria Few HPF (Negative); C & S Indicated? C&S Done As Ordered; Casts Negative LPF (Negative); Crystals Negative HPF (Negative); Epithelial Cells Few HPF (Negative); Mucus Negative (Negative); RBC 0-2 HPF (0-2)
== END 2024-10-11 22:35 | disposition home or self-care (01) ==
LOC: LBN 22:34
PROVIDERS: PCP Nurse Practitioner Family; Visit Provider Physician Assistant Medical
DX: R30.0 Dysuria (principal)
CPT/HCPCS: 81015; 87086; 87480; 87510; 87660

== ENCOUNTER 2024-11-15 01:04 | Outpatient (CLI) | payer MEDICARE, SELFPAY ==
[2024-11-15 11:51] LABS: Abs Immature Grans 0.01 10^3/uL (0.0-0.06); Absolute Basophil Count 0.08 10^3/uL (0.0-0.2); Absolute Eosinophil Count 0.08 10^3/uL (0.0-0.7); Absolute Lymphocyte Count 1.44 10^3/uL (1.2-3.4); Absolute Monocyte Count 0.49 10^3/uL (0.1-0.8); Absolute Neutrophil Count 3.25 10^3/uL (1.2-6.7); Basophils % 1.5 %; Eosinophils % 1.5 %; HGB 13.9 g/dL (11.2-15.7); Immature Grans % 0.2 %; Lymphocytes % 26.9 %; MCH 30.4 pg (27.0-33.0); MCHC 32.3 % (32.0-36.0); MCV 94 fL (80-95); MPV 11.4 fL (8.0-11.0); Monocytes % 9.2 %; Neutrophils % 60.7 %; Platelet Count 125 10^3/uL (130-400); RBC 4.57 10^6/uL (3.93-5.22); RDW 12.4 % (11.7-14.6); RDW-SD 42.6 fL; WBC 5.35 10^3/uL (4.4-10.8)
== END 2024-11-15 01:05 | disposition home or self-care (01) ==
PROVIDERS: PCP Nurse Practitioner Family; Visit Provider Nurse Practitioner Adult Health
DX: D69.3 Immune thrombocytopenic purpura (principal); D69.6 Thrombocytopenia, unspecified
CPT/HCPCS: 36415; 85025

== ENCOUNTER 2025-01-15 01:47 | Outpatient (CLI) | payer MEDICARE, SELFPAY ==
--- NOTE | 2025-01-15 07:30 | DI.RAD_ITS ---
Exam(s) XR FOOT LT COMPLETE EXAM: XR FOOT LT COMPLETE CLINICAL HISTORY: Left foot pain,m79.672. TECHNIQUE: 2D digital imaging was performed of the left foot. Three images were obtained. AP, oblique and lateral views were obtained. COMPARISON: No exams were available for comparison FINDINGS: BONES: No acute fracture is present. No bony destructive lesion is seen. There is a small plantar calcaneal spur. JOINTS: No dislocation present. The joint spaces are well maintained. SOFT TISSUE: Normal. IMPRESSION: Small calcaneal spur. DATA REPOSITORY: RADIATION DOSE DELIVERED:
--- NOTE | 2025-01-15 07:30 | DI.RAD_ITS ---
Exam(s) XR FOOT RT COMPLETE EXAM: XR FOOT RT COMPLETE CLINICAL HISTORY: Right foot pain,m79.671. TECHNIQUE: 2D digital imaging was performed of the right foot. Three images were obtained. AP, oblique and lateral views were obtained. COMPARISON: CR RIGHT FOOT COMPLETE from 12/12/2009 FINDINGS: BONES: No acute fracture is present. No bony destructive lesion is seen. There is a small plantar calcaneal spur. JOINTS: No dislocation present. The joint spaces are well maintained. SOFT TISSUE: Normal. No radiopaque foreign bodies are identified. IMPRESSION: Small calcaneal spur. DATA REPOSITORY: RADIATION DOSE DELIVERED:
== END 2025-01-15 02:07 ==
LOC: DI 01:47
PROVIDERS: PCP Nurse Practitioner Family; Visit Provider Podiatrist
DX: M79.672 Pain in left foot (principal); M79.671 Pain in right foot
CPT/HCPCS: 73630

== ENCOUNTER 2025-02-04 14:24 | Outpatient (CLI) | payer MEDICARE, SELFPAY ==
--- NOTE | 2025-02-04 14:15 | DI.RAD_ITS ---
Exam(s) XR WRIST LT LIMITED EXAM: XR WRIST LT LIMITED CLINICAL HISTORY: eval L distal radius frx. TECHNIQUE: 2D digital imaging was performed. Three views. COMPARISON: No exams were available for comparison FINDINGS: BONES: A cast is in place was partially obscures the bony detail. There is a nondisplaced fracture extending transversely through the distal radial metaphysis. There is no significant angulation. No additional fractures are identified. JOINTS: The carpal bones are normally aligned. SOFT TISSUE: Normal. IMPRESSION: Nondisplaced fracture of the distal radius. DATA REPOSITORY: RADIATION DOSE DELIVERED:
== END 2025-02-04 14:25 | disposition home or self-care (01) ==
LOC: DIORS 14:25
PROVIDERS: PCP Nurse Practitioner Family; Referring Provider Nurse Practitioner Family; Visit Provider Student in an Organized Health Care Education/Training Program
DX: S52.502A Unspecified fracture of the lower end of left radius, initial encounter for closed fracture (principal); X58.XXXA Exposure to other specified factors, initial encounter
CPT/HCPCS: 99213; 73100

== ENCOUNTER 2025-02-11 13:50 | Outpatient (CLI) | payer MEDICARE, SELFPAY ==
--- NOTE | 2025-02-11 13:30 | DI.RAD_ITS ---
Exam(s) XR WRIST LT LIMITED EXAM: XR WRIST LT LIMITED CLINICAL HISTORY: F/U L DISTAL RAD FX. TECHNIQUE: 2D digital imaging was performed. COMPARISON: CR XR WRIST LT LIMITED from 02/04/2025 FINDINGS: Two views The cast material is been removed. The fracture sites in the distal radius and are again noted. Fracture line is faintly visible. No further displacement. Scaphoid and scapholunate distance are normal. IMPRESSION: Satisfactory appearance DATA REPOSITORY: RADIATION DOSE DELIVERED:
== END 2025-02-11 13:51 | disposition home or self-care (01) ==
LOC: DIORS 13:50
PROVIDERS: PCP Nurse Practitioner Family; Referring Provider Nurse Practitioner Family; Visit Provider Student in an Organized Health Care Education/Training Program
DX: S52.502A Unspecified fracture of the lower end of left radius, initial encounter for closed fracture (principal); X58.XXXA Exposure to other specified factors, initial encounter
CPT/HCPCS: 99213; 73100

== ENCOUNTER 2025-02-18 14:45 | Outpatient (CLI) | payer MEDICARE, SELFPAY ==
--- NOTE | 2025-02-18 12:45 | DI.RAD_ITS ---
Exam(s) XR WRIST LT LIMITED EXAM: XR WRIST LT LIMITED CLINICAL HISTORY: F/U L DISTAL RAD FX. TECHNIQUE: 2D digital imaging was performed of the left wrist. Two images were obtained. PA and lateral views were obtained. COMPARISON: CR XR WRIST LT LIMITED from 02/11/2025 FINDINGS: BONES: There has been no change in alignment of the ulnar styloid process fracture. There has been no change in alignment of the distal radial fracture. The fracture lines are still visualized. There is no new fracture. No bony destructive lesion is seen. JOINTS: The carpal bones are normally aligned. SOFT TISSUE: Normal. IMPRESSION: Stable alignment of the distal radial and ulnar styloid process fractures. DATA REPOSITORY: RADIATION DOSE DELIVERED:
== END 2025-02-18 14:46 | disposition home or self-care (01) ==
LOC: DIORS 14:45
PROVIDERS: PCP Nurse Practitioner Family; Visit Provider Physician Assistant
DX: S52.502D Unspecified fracture of the lower end of left radius, subsequent encounter for closed fracture with routine healing (principal); X58.XXXD Exposure to other specified factors, subsequent encounter
CPT/HCPCS: 99213; 73100

== ENCOUNTER 2025-02-20 02:34 | Outpatient (CLI) | payer MEDICARE, SELFPAY ==
[2025-02-20 10:56] LABS: Abs Immature Grans 0.01 10^3/uL (0.0-0.06); HCT 38.9 % (36.0-46.0); HGB 12.7 g/dL (11.2-15.7); Immature Grans % 0.2 %; MCH 30.6 pg (27.0-33.0); MCHC 32.6 % (32.0-36.0); MCV 94 fL (80-95); MPV 10.6 fL (8.0-11.0); Platelet Count 149 10^3/uL (130-400); RBC 4.15 10^6/uL (3.93-5.22); RDW 12.5 % (11.7-14.6); RDW-SD 43.1 fL; WBC 4.98 10^3/uL (4.4-10.8)
== END 2025-02-20 02:35 | disposition home or self-care (01) ==
PROVIDERS: Nurse Practitioner Adult Health; PCP Nurse Practitioner Family; Visit Provider Internal Medicine Hematology & Oncology
DX: D69.3 Immune thrombocytopenic purpura (principal); D69.6 Thrombocytopenia, unspecified
CPT/HCPCS: 36415; 85025

== ENCOUNTER → 2025-02-26 14:02 | Outpatient (BNVA) | payer MEDICARE, SELFPAY | PROVIDERS: PCP Nurse Practitioner Family; Referring Provider Nurse Practitioner Family; Visit Provider Podiatrist | DX: M77.41 Metatarsalgia, right foot (principal); M77.42 Metatarsalgia, left foot; L90.8 Other atrophic disorders of skin | CPT/HCPCS: 29540 ==

== ENCOUNTER 2025-03-04 15:33 | Outpatient (CLI) | payer MEDICARE, SELFPAY ==
--- NOTE | 2025-03-04 14:18 | DI.RAD_ITS ---
Exam(s) XR WRIST LT LIMITED EXAM: XR WRIST LT LIMITED CLINICAL HISTORY: F/U FRACTURE. TECHNIQUE: 2D digital imaging was performed. COMPARISON: CR XR WRIST LT LIMITED from 02/18/2025 FINDINGS: Two views There is continued stable position alignment at the fracture sites in the distal radius and ulnar styloid. Fracture lines are still visible. There is no significant ulnar variance. No obvious scaphoid fractured and the scaphoid lunate distance is normal. IMPRESSION: Stable appearance at the distal radius and ulnar styloid fracture sites. Fracture line still visible. No further displacement. DATA REPOSITORY: RADIATION DOSE DELIVERED:
== END 2025-03-04 15:34 | disposition home or self-care (01) ==
LOC: DIORS 15:33
PROVIDERS: PCP Nurse Practitioner Family; Referring Provider Nurse Practitioner Family; Visit Provider Physician Assistant
DX: S52.502A Unspecified fracture of the lower end of left radius, initial encounter for closed fracture (principal); X58.XXXA Exposure to other specified factors, initial encounter
CPT/HCPCS: 99213; 73100

== ENCOUNTER → 2025-03-27 14:57 | Outpatient (BNVA) | payer MEDICARE, SELFPAY | PROVIDERS: Referring Provider Nurse Practitioner Family; Visit Provider Podiatrist | DX: M77.41 Metatarsalgia, right foot (principal); M77.42 Metatarsalgia, left foot; L90.8 Other atrophic disorders of skin | CPT/HCPCS: 29540 ==

== ENCOUNTER 2025-04-04 14:56 | Outpatient (CLI) | payer MEDICARE, SELFPAY ==
--- NOTE | 2025-04-04 13:57 | DI.RAD_ITS ---
Exam(s) XR WRIST LT LIMITED EXAM: XR WRIST LT LIMITED INDICATION: F/U L DISTAL RAD FX. COMPARISON: CR XR WRIST LT LIMITED from 03/04/2025 TECHNIQUE: 2D digital imaging was performed. Two views. FINDINGS: There has been continued healing distal radial fracture with some blurring of the fracture margins. The ulnar styloid fracture is unchanged. T\ THe bones appear osteopenic. DATA REPOSITORY: RADIATION DOSE DELIVERED:
== END 2025-04-04 14:57 | disposition home or self-care (01) ==
LOC: DIORS 14:56
PROVIDERS: Referring Provider Nurse Practitioner Family; Visit Provider Student in an Organized Health Care Education/Training Program
DX: S52.502D Unspecified fracture of the lower end of left radius, subsequent encounter for closed fracture with routine healing (principal); X58.XXXD Exposure to other specified factors, subsequent encounter
CPT/HCPCS: 99213; 73100

== ENCOUNTER 2025-05-27 03:14 | Outpatient (CLI) | payer MEDICARE, SELFPAY ==
[2025-05-27 11:13] LABS: Abs Immature Grans 0.01 10^3/uL (0.0-0.06); HCT 40.5 % (36.0-46.0); HGB 13.2 g/dL (11.2-15.7); Immature Grans % 0.2 %; MCH 30.2 pg (27.0-33.0); MCHC 32.6 % (32.0-36.0); MCV 93 fL (80-95); MPV 11.2 fL (8.0-11.0); Platelet Count 130 10^3/uL (130-400); RBC 4.37 10^6/uL (3.93-5.22); RDW 12.8 % (11.7-14.6); RDW-SD 43.5 fL; WBC 5.85 10^3/uL (4.4-10.8)
== END 2025-05-27 03:15 | disposition home or self-care (01) ==
LOC: LBO 03:14
PROVIDERS: Visit Provider Internal Medicine Hematology & Oncology
DX: D69.6 Thrombocytopenia, unspecified (principal)
CPT/HCPCS: 36415; 85025